=== PATIENT | male | born 1950 | race Caucasian/White ===

== ENCOUNTER 2016-07-29 15:34 | Observation (INO) | payer BLACK LUNG, MEDICARE, OTHER ==
[2016-07-29] MEDS ORDERED: ULTRAM 50 MG PO PRN (16:47)
[2016-07-29] MEDS ORDERED: DUONEB 0.5-3 MG/3 ml Neb IH PRN ×2 (16:48→20:31)
[2016-07-29 18:25] LABS: Collection Type CLEAN CATCH
[2016-07-29 18:26] LABS: Bacteria RARE /HPF (NEGATIVE); COMPLETE URINE MICROSCOPIC? YES
[2016-07-29] MEDS ORDERED: xanAX 0.5 MG PO PRN (18:41)
[2016-07-29 19:03] LABS: BASOPHIL % 0.2 % (0.0-0.4); Eosinophil % 2.7 % (0.00-5.0); Granulocytes % 68.4 % (36.0-66.0); Lymphocytes % 20.3 % (24.0-44.0); Mean Cell Volume 88.7 fl (78-100); Mean Corpuscular Hemoglobin 27.7 pg (26-32); Mean Platelet Volume 7.7 fl (6-9.5); Monocytes % 8.4 % (0.0-12.0); Platelet Count 316 K/mm3 (150-450); Red Blood Count 3.97 M/mm3 (4.1-5.6); Red Cell Distribution Width 15.1 % (11.5-14.0); White Blood Count 9.6 K/mm3 (4.0-10.5)
[2016-07-29] MEDS: ROCEPHIN 1 Gm-D5w 50 ml Bag** 50 ML IV SCH (19:37)
[2016-07-29] MEDS: solu-MEDROL 40 MG IV SCH ×2 (19:37→21:35)
[2016-07-29 19:47] LABS: ALKALINE PHOSPHATASE 68 U/L (46-116); ANION GAP 14.5 MEQ/L (5-15); BILIRUBIN,TOTAL 0.1 mg/dL (0.2-1.0); BLOOD UREA NITROGEN 16 mg/dL (9-20); CHLORIDE 103 mEq/L (98-107); Carbon Dioxide 26.2 mEq/L (21-32); Glucose 68 MG/DL (70-110); Potassium 4.2 mEq/L (3.5-5.1); SGOT/AST 15 U/L (15-37); SGPT/ALT 16 U/L (12-78); SODIUM 140 mEq/L (136-145); Total Protein 7.6 gm/dL (6.4-8.2)
[2016-07-29] MEDS: Zithromax 500 MG/ 250 ML NaCl Premix 250 ML IV SCH (20:13)
[2016-07-29] MEDS: ELIQUIS PO SCH (21:36)
[2016-07-29] MEDS: xanAX 0.5 MG PO SCH (21:36)
[2016-07-29] MEDS: DUONEB 0.5-3 MG/3 ml Neb IH SCH (23:22)
[2016-07-30] MEDS: DUONEB 0.5-3 MG/3 ml Neb IH SCH ×5 (03:35→19:00)
[2016-07-30] MEDS: solu-MEDROL 40 MG IV SCH ×3 (05:18→20:57)
[2016-07-30] MEDS: Spiriva 18 Mcg/Cap Inhaler IH SCH ×2 (07:02→08:25)
[2016-07-30] MEDS: Advair Hfa 230/21 Mcg COMMON CANISTER IH SCH ×2 (07:03→19:02)
[2016-07-30] MEDS: Glucotrol 5 MG PO SCH ×2 (08:26→16:50)
[2016-07-30] MEDS: ELIQUIS PO SCH ×2 (08:26→20:57)
[2016-07-30] MEDS: Protonix 40MG Tablet PO SCH (08:26)
[2016-07-30] MEDS: THERAGRAN MULTIVITAMIN PO SCH (08:26)
--- NOTE | 2016-07-30 08:38 | XRAY ---
Indication: COPD exacerbation. Comparison: July 15, 2016. PA/lateral chest unchanged again hyperinflated with stable right mid to lower lung pleural-parenchymal opacity and left base scarring. Heart is not enlarged. No new cardiopulmonary abnormalities.
--- NOTE | 2016-07-30 08:42 | XRAY ---
Indication: Back pain. Comparison: None 5 views of the lumbar spine demonstrates 5 lumbar vertebral segments with age-related osteopenia, bilateral L5 spondylolysis with minimal 5-6 mm spondylolisthesis, remote L1 compression deformity with approximately 25% height loss, old right 11th/12th rib fractures, bilateral hip degenerative changes, pancreatic calcifications from chronic pancreatitis, left mid abdomen metallic shrapnel, fecal stasis without obstruction, and heavy aortic calcifications. Impression: Nonacute lumbar spine with numerous chronic features.
--- NOTE | 2016-07-30 09:39 | PCM.HP ---
History of Present Illness - Chief Complaint Chief Complaint: Exacerbation of COPD Date: 07/30/16 History of Present Illness: Mr.SMITH CAZARES is a 65 year old male. with severe copd and chronic hypoxemic respiratory failure was having increased sob and weakness and wheezing for the last [address] Meyer's office with this and lumbar back pain after "an aggressive move at the chiropractor". He was sent for observation steroids antibiotics to treat the COPD exacerbation. he is feeling a little better this am. 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 No vomiting he is warm and having some sweating no fevers. he had a PET scan done 5 days ago the results are pending regarding some indeterminate nodules on the CT of the chest. - Review of Systems Constitutional: Chills, Fatigue, Lethargy, Night Sweats, Weakness, No Fever Eyes: No Symptoms Ears, Nose, & Throat: No Symptoms Respiratory: Cough, Short Of Breath, Wheezing Cardiac: No Chest Pain, No Edema, No Syncope Abdominal/Gastrointestinal: No Abdominal Pain, No Nausea, No Vomiting, No Diarrhea Genitourinary Symptoms: No Dysuria Musculoskeletal: Back Pain, No Neck Pain, No Joint Redness, No Joint Swelling Skin: No Rash Neurological: No Dizziness, No Focal Weakness, No Sensory Changes Psychological: No Symptoms Endocrine: No Symptoms Hematologic/Lymphatic: No Symptoms Immunological/Allergic: No Symptoms Medications & Allergies Home Medications: Home Medication List Metformin HCl 500 mg [Glucophage 500 MG] 500 mg PO BID 02/11/16 [History Confirmed 07/29/16] Albuterol/Ipratropium 3ml Neb* [DUONEB 0.5-3 MG/3 ml Neb] 3 ml IH Q4HRT #0 ampul.neb 04/04/16 [Rx Confirmed 07/29/16] Apixaban [Eliquis] 5 mg PO BID #0 tablet 04/04/16 [Rx Confirmed 07/29/16] Glipizide 5 mg [Glucotrol 5 MG] 5 mg PO BIDWM #0 tablet 04/04/16 [Rx Confirmed 07/29/16] Prednisone 20 mg [Deltasone 20 mg] 20 mg PO DAILY #0 tablet 04/04/16 [Rx Confirmed 07/29/16] Alprazolam [Xanax 0.5 mg] 0.5 mg PO Q6H PRN PRN 05/29/16 [History Confirmed ] Fluticasone/Salmeterol 230/21 [Advair Hfa 230/21 Mcg COMMON CANISTER*] 2 puff IH BID 05/29/16 [History Confirmed 07/29/16] Multivitamin W-Minerals/Lutein [Multivit-Mineral Plus 50 Tab] 1 each PO DAILY [History Confirmed 07/29/16] Omeprazole 20 MG [Prilosec 20 mg] 20 mg PO DAILY 05/29/16 [History Confirmed ] Tiotropium [place] Inhaler [Spiriva 18 Mcg/Cap Inhaler] 1 ea IH DAILY [History Confirmed 07/29/16] Allergies/Adverse Reactions: Allergies Allergy/AdvReac Type Severity Reaction Status Date / Time No Known Drug Allergies Allergy Verified 05/29/16 20:30 - Past Medical History Past Medical History: Yes Neurological History: No Pertinent History ENT History: No Pertinent History Cardiac History: No Pertinent History, Deep Vein Thrombosis Respiratory History: COPD, Emphysema, Other Endocrine Medical History: No Pertinent History Musculoskelatal History: No Pertinent History GI Medical History: No Pertinent History History: No Pertinent History Pyscho-Social History: No Pertinent History Male Reproductive Disorders: No Pertinent History Comment: Black Lung Disease, Right Lower and Right Middle Lobectomy - Past Surgical History Past Surgical History: Yes Neuro Surgical History: No Pertinent History Cardiac History: No Pertinent History Respiratory Surgery: Lobectomy GI Surgical History: No Pertinent History Genitourinary Surgical Hx: No Pertinent History Musculskeletal Surgical Hx: No Pertinent History Male Surgical History: No Pertinent History Other Surgical History: R middle on lower LOBECTOMY, bronch - Social History Smoking Status: Former smoker How long have you smoked: 50 years Exposure to second hand smoke: No Alcohol: None Drug Use: none - Physical Exam Vital Signs: Vital Signs - 24 hr Temp Pulse Resp BP Pulse Ox 07/30/16 07:36 98 F 70 20 111/68 96 07/30/16 07:06 75 20 96 07/30/16 06:00 20 07/30/16 04:00 98.6 F 76 20 119/66 94 L 07/30/16 03:00 80 22 94 L 07/30/16 02:00 22 07/30/16 00:00 99.8 F 89 22 104/64 95 07/29/16 23:00 89 22 95 07/29/16 22:14 101 H 20 92 L 07/29/16 22:00 22 07/29/16 19:46 99.9 F 93 H 22 137/80 95 07/29/16 18:27 99.9 F 93 H 22 137/80 95 Oxygen-Last 24 hours O2 Percentage 4 Liters = 36% O2 Percentage 4 Liters = 36% O2 Percentage 4 Liters = 36% O2 Percentage 4 Liters = 36% O2 Percentage 4 Liters = 36% General Appearance: no apparent distress, alert, thin Neurologic Exam: alert, oriented x 3, cooperative, normal mood/affect, nml cerebellar function, nml station & gait, sensation nml, No motor deficits Eye Exam: PERRL/EOMI, eyes nml inspection Ears, Nose, Throat Exam: normal ENT inspection, pharynx normal, moist mucous membranes Neck Exam: normal inspection, non-tender, supple, full range of motion Respiratory Exam: normal breath sounds, wheezing, No respiratory distress Cardiovascular Exam: regular rate/rhythm, normal heart sounds, normal peripheral pulses Gastrointestinal/Abdomen Exam: soft, normal bowel sounds, No tenderness, No mass Back Exam: normal inspection, normal range of motion, other (tenderness with muscle spasm adjacent to L1-L3 bilateral), No CVA tenderness, No vertebral tenderness Extremity Exam: normal inspection, normal range of motion, pelvis stable Skin Exam: normal color, warm, dry, No rash Lymphatic Exam: No adenopathy Results - Labs Lab/Micro Results: Accuchecks Date 07/30/16 Date 07/29/16 Time 07:30 Time 22:00 Accucheck Value: 175 Accucheck Value: 209 Lab Results-Last 24 Hours 07/29/16 07/29/16 07/29/16 Range/Units 18:00 18:59 18:59 WBC 9.6 (4.0-10.5) K/mm3 RBC 3.97 L (4.1-5.6) M/mm3 Hgb 11.0 L (12.5-18.0) gm/dl Hct 35.2 L (42-50) % MCV 88.7 (78-100) fl MCH 27.7 (26-32) pg MCHC 31.3 L (32-36) g/dl RDW 15.1 H (11.5-14.0) % Plt Count 316 (150-450) K/mm3 MPV 7.7 (6-9.5) fl Gran % 68.4 H (36.0-66.0) % Lymphocytes % 20.3 L (24.0-44.0) % Monocytes % 8.4 (0.0-12.0) % Eosinophils % 2.7 (0.00-5.0) % Basophils % 0.2 (0.0-0.4) % Basophils # 0.02 (0-0.4) Sodium 140 (136-145) mEq/L Potassium 4.2 (3.5-5.1) mEq/L Chloride 103 (98-107) mEq/L Carbon Dioxide 26.2 (21-32) mEq/L Anion Gap 14.5 (5-15) MEQ/L BUN 16 (9-20) mg/dL Creatinine 0.92 (0.55-1.30) mg/dl Estimated GFR > 60 ML/MIN Glucose 68 L (70-110) MG/DL Calcium 8.9 (8.5-10.1) mg/dL Total Bilirubin 0.1 L (0.2-1.0) mg/dL AST 15 (15-37) U/L ALT 16 (12-78) U/L Alkaline Phosphatase 68 (46-116) U/L Serum Total Protein 7.6 (6.4-8.2) gm/dL Albumin 3.0 L (3.4-5.0) g/dL Prealbumin (18.0-35.7) mg/dL Ur Collection Type CLEAN CATCH Urine Color YELLOW (YELLOW) Urine Appearance CLEAR (CLEAR) Urine pH 6.0 (5-6) Ur Specific [place] 1.015 (1.005-1.025) Urine Protein NEGATIVE (Negative) Urine Glucose (UA) 100 (NEGATIVE) mg/dL Urine Ketones SMALL (NEGATIVE) Urine Nitrite NEGATIVE (NEGATIVE) Urine Bilirubin SMALL (NEGATIVE) Urine Urobilinogen 0.2 (0-1) mg/dL Urine WBC (Auto) NEGATIVE (NEGATIVE) Urine RBC (Auto) TRACE-INTACT (0-5) Yash/ul Urine Microscopic RBC 0-2 (0-2) /HPF Urine Bacteria RARE (NEGATIVE) /HPF Specimen Received [id number] 07/29/16 Range/Units 18:59 WBC (4.0-10.5) K/mm3 RBC (4.1-5.6) M/mm3 Hgb (12.5-18.0) gm/dl Hct (42-50) % MCV (78-100) fl MCH (26-32) pg MCHC (32-36) g/dl RDW (11.5-14.0) % Plt Count (150-450) K/mm3 MPV (6-9.5) fl Gran % (36.0-66.0) % Lymphocytes % (24.0-44.0) % Monocytes % (0.0-12.0) % Eosinophils % (0.00-5.0) % Basophils % (0.0-0.4) % Basophils # (0-0.4) Sodium (136-145) mEq/L Potassium (3.5-5.1) mEq/L Chloride (98-107) mEq/L Carbon Dioxide (21-32) mEq/L Anion Gap (5-15) MEQ/L BUN (9-20) mg/dL Creatinine (0.55-1.30) mg/dl Estimated GFR ML/MIN Glucose (70-110) MG/DL Calcium (8.5-10.1) mg/dL Total Bilirubin (0.2-1.0) mg/dL AST (15-37) U/L ALT (12-78) U/L Alkaline Phosphatase (46-116) U/L Serum Total Protein (6.4-8.2) gm/dL Albumin (3.4-5.0) g/dL Prealbumin 18.6 (18.0-35.7) mg/dL Ur Collection Type Urine Color (YELLOW) Urine Appearance (CLEAR) Urine pH (5-6) Ur Specific [place] (1.005-1.025) Urine Protein (Negative) Urine Glucose (UA) (NEGATIVE) mg/dL Urine Ketones (NEGATIVE) Urine Nitrite (NEGATIVE) Urine Bilirubin (NEGATIVE) Urine Urobilinogen (0-1) mg/dL Urine WBC (Auto) (NEGATIVE) Urine RBC (Auto) (0-5) Yash/ul Urine Microscopic RBC (0-2) /HPF Urine Bacteria (NEGATIVE) /HPF Specimen Received Accuchecks Date 07/30/16 Date 07/29/16 Time 07:30 Time 22:00 Accucheck Value: 175 Accucheck Value: 209 - Radiology Impressions Radiology Exams & Impressions: Radiology Procedures Category Date Time Status CHEST 2 VIEWS (PA AND LAT) Routine Exams 07/29/16 18:00 Completed LUMBAR COMPLETE (MIN 4 VIEWS) Routine Exams 07/29/16 18:00 Completed - Other Procedures and Tests Respiratory Therapy 07/29/16 18:00 Oxygen NASAL CANNULA 4 lpm 07/29/16 23:00 Respiratory Nebulizer Q4H 07/30/16 07:00 Respiratory MDI BID Respiratory MDI UD Assessment/Plan (1) Acute exacerbation of chronic obstructive airways disease Current Visit: Yes Status: Acute Assessment & Plan: continue nebs, iv steroids, ceftriaxone and azithromycin on eliquis ambulate as much as tolerated wean steroids as tolerated Code(s): J44.1 - CHRONIC OBSTRUCTIVE PULMONARY DISEASE W (ACUTE) EXACERBATION (2) Chronic hypoxemic respiratory failure Current Visit: Yes Status: Acute (3) Spasm of lumbar paraspinous muscle Current Visit: Yes Status: Acute Code(s): M62.830 - MUSCLE SPASM OF BACK (4) Hx pulmonary embolism Current Visit: Yes Status: Chronic Code(s): Z86.711 - PERSONAL HISTORY OF PULMONARY EMBOLISM (5) Protein calorie malnutrition Current Visit: Yes Status: Chronic Code(s): E46 - UNSPECIFIED PROTEIN- CALORIE MALNUTRITION
[2016-07-30] MEDS ORDERED: LUTEIN PO SCH (10:00)
[2016-07-30] MEDS ORDERED: NON-FORMULARY ITEM (Omeprazole 20 Mg [Prilosec 20 Mg] 20 MG) PO SCH (10:00)
[2016-07-30] MEDS ORDERED: MULTIVITAMIN W MINERALS PO SCH (10:00)
[2016-07-30] MEDS ORDERED: [UNRECOGNIZED DRUG - OTHER] PO SCH (10:00)
[2016-07-30] MEDS: ROCEPHIN 1 Gm-D5w 50 ml Bag** 50 ML IV SCH (16:50)
[2016-07-30] MEDS: Zithromax 500 MG/ 250 ML NaCl Premix 250 ML IV SCH (16:50)
[2016-07-30] MEDS: xanAX 0.5 MG PO SCH (20:57)
[2016-07-31] MEDS: DUONEB 0.5-3 MG/3 ml Neb IH SCH ×4 (00:15→10:48)
[2016-07-31] MEDS: solu-MEDROL 40 MG IV SCH (05:46)
[2016-07-31] MEDS: Advair Hfa 230/21 Mcg COMMON CANISTER IH SCH (06:48)
[2016-07-31] MEDS: Spiriva 18 Mcg/Cap Inhaler IH SCH (06:50)
[2016-07-31] MEDS: Glucotrol 5 MG PO SCH (07:14)
[2016-07-31 07:29] VITALS: O2SAT 95
--- NOTE | 2016-07-31 08:55 | PCM.DS ---
Discharge Summary Date of Admission: 07/29/16 17:45 Date of Discharge: 07/31/16 Admitting Physician: KELIN ORTIZ Primary Care Provider: KELIN ORTIZ Allergies Allergies No Known Drug Allergies Allergy (Verified 05/29/16 20:30) Hospital Summary - Hospital Course Hospital Course: Feeling much better now was walking in the halls yesterday breathing is stable. His back pain has improved. No new symptoms. He was treated for an early copd exacerbation and this has improved well on iv steroids and will d/c on po steroids and complete 5 day coarse of azithromycin. His lumbar pains he was having resolved he does have the results of a PET CT chest pending from last week still for some indeterminate pulmonary nodules. - Vitals & Intake/Output Vital Signs: Vital Signs Temperature 98.4 F 07/31/16 07:27 Pulse Rate 74 07/31/16 07:27 Respiratory Rate 20 07/31/16 07:27 Blood Pressure 131/65 07/31/16 07:27 O2 Sat by Pulse Oximetry 95 07/31/16 07:27 Oxygen-Last Documented O2 Percentage 4 Liters = 36% Intake & Output: Intake & Output 07/28/16 07/29/16 07/30/16 07/31/16 11:59 11:59 11:59 11:59 Intake Total 1530 660 Output Total 1000 1750 Balance 530 -1090 Weight 59.506 kg - Lab Result Diagrams: 07/29/16 18:59 07/29/16 18:59 Lab Results-Last 24 Hrs: Accuchecks Date 07/30/16 Date 07/30/16 Date 07/30/16 Time 20:42 Time 16:39 Time 11:30 Accucheck Value: 213 Accucheck Value: 237 Accucheck Value: 283 Accucheck Value: 300 Micro Results-Entire Visit: Accuchecks Date 07/30/16 Date 07/30/16 Date 07/30/16 Time 20:42 Time 16:39 Time 11:30 Accucheck Value: 213 Accucheck Value: 237 Accucheck Value: 283 Accucheck Value: 300 - Radiology Exams Ordered Rad Exams-Entire Visit: Radiology Procedures Category Date Time Status CHEST 2 VIEWS (PA AND LAT) Routine Exams 07/29/16 18:00 Completed LUMBAR COMPLETE (MIN 4 VIEWS) Routine Exams 07/29/16 18:00 Completed - Procedures and Test Procedures and Tests throughout Hospitalization: Therapy Orders & Screens 07/29/16 18:00 Oxygen NASAL CANNULA 4 lpm Comment: Diagnosis: [place] copd,back pain,DMII 07/29/16 22:13 Respiratory Therapy Assessment ONCE Comment: Diagnosis: Exacerbation of COPD 07/29/16 23:00 Respiratory Nebulizer Q4H Comment: Diagnosis: Exacerbation of COPD 07/30/16 07:00 Respiratory MDI BID Comment: Diagnosis: Exacerbation of COPD Respiratory MDI UD Comment: Diagnosis: Exacerbation of COPD Discharge Exam General Appearance: no apparent distress, alert, thin Neurologic Exam: alert, oriented x 3, cooperative, normal mood/affect, nml cerebellar function, sensation nml, No motor deficits Skin Exam: normal color, warm, dry Eye Exam: PERRL, EOMI, eyes nml inspection Ears, Nose, Throat Exam: normal ENT inspection, pharynx normal, moist mucous membranes Neck Exam: normal inspection, non-tender, supple, full range of motion Respiratory Exam: normal breath sounds, lungs clear, prolonged expirations, No respiratory distress Cardiovascular Exam: regular rate/rhythm, normal heart sounds Gastrointestinal/Abdomen Exam: soft, No tenderness, No mass Extremity Exam: normal inspection, normal range of motion Back Exam: normal inspection, normal range of motion, No CVA tenderness, No vertebral tenderness Male Genitalia Exam: deferred Rectal Exam: deferred Final Diagnosis/Problem List - Final Discharge Diagnosis/Problem (1) Acute exacerbation of chronic obstructive airways disease Current Visit: Yes Status: Acute (2) Chronic hypoxemic respiratory failure Current Visit: Yes Status: Acute (3) Spasm of lumbar paraspinous muscle Current Visit: Yes Status: Acute (4) Hx pulmonary embolism Current Visit: Yes Status: Chronic (5) Protein calorie malnutrition Current Visit: Yes Status: Chronic - Discharge Disposition: Home, Self-Care Condition: Stable Prescriptions: New Azithromycin 250 mg [Zithromax 250 MG TABLET] 250 mg PO DAILY #3 tablet Continue Metformin HCl 500 mg [Glucophage 500 MG] 500 mg PO BID Albuterol/Ipratropium 3ml Neb* [DUONEB 0.5-3 MG/3 ml Neb] 3 ml IH Q4HRT #0 ampul.neb Apixaban [Eliquis] 5 mg PO BID #0 tablet Glipizide 5 mg [Glucotrol 5 MG] 5 mg PO BIDWM #0 tablet Alprazolam [Xanax 0.5 mg] 0.5 mg PO Q6H PRN PRN PRN Reason: Anxiety Fluticasone/Salmeterol 230/21 [Advair Hfa 230/21 Mcg COMMON CANISTER*] 2 puff IH BID Omeprazole 20 MG [Prilosec 20 mg] 20 mg PO DAILY Multivitamin W-Minerals/Lutein [Multivit-Mineral Plus 50 Tab] 1 each PO DAILY Tiotropium [place] Inhaler [Spiriva 18 Mcg/Cap Inhaler] 1 ea IH DAILY Prednisone 20 mg [Deltasone 20 mg] 20 mg PO DAILY #11 tablet Follow up with: IBETH JAEGER MD [ACTIVE STAFF] - 1 Week Forms: Patient Portal Information
[2016-07-31] MEDS: ELIQUIS PO SCH (09:10)
[2016-07-31] MEDS: THERAGRAN MULTIVITAMIN PO SCH (09:10)
[2016-07-31] MEDS: Protonix 40MG Tablet PO SCH (09:10)
[2016-07-31 10:50] VITALS: PULSE 76
[2016-07-31 10:59] VITALS: BP 128/69
== END 2016-07-31 11:00 | disposition home or self-care (01) ==
LOC: MED SURG 17:45
PROVIDERS: ADMIT Family Medicine; ATTEND Family Medicine
DX: J44.1 Chronic obstructive pulmonary disease with (acute) exacerbation (principal); J96.11 Chronic respiratory failure with hypoxia; M62.830 Muscle spasm of back; Z86.711 Personal history of pulmonary embolism; E46 Unspecified protein-calorie malnutrition; F41.9 Anxiety disorder, unspecified; E11.9 Type 2 diabetes mellitus without complications; Z79.01 Long term (current) use of anticoagulants; Z79.899 Other long term (current) drug therapy
CPT/HCPCS: 36415; 71020; 72110; 80053; 81000; 82962; 84134; 85025; 94640; 94760; G0378; J0456; J0696; J2920

== ENCOUNTER 2016-08-16 16:54 | Inpatient (IN) | payer BLACK LUNG, MEDICARE, OTHER ==
[2016-08-16] MEDS ORDERED: DUONEB 0.5-3 MG/3 ml Neb IH ONE ×2 (16:58→17:15)
[2016-08-16] MEDS ORDERED: solu-MEDROL 125 MG IV ONE (16:58)
[2016-08-16] MEDS ORDERED: ROCEPHIN 1 Gm-D5w 50 ml Bag** 50 ML IV ONE ×2 (16:58→17:05)
[2016-08-16] MEDS ORDERED: Pepcid 20 MG VIAL IV ONE ×2 (16:58→17:05)
[2016-08-16] MEDS ORDERED: Sodium Chloride 0.9% 1000 ML 1,000 ML ONE (17:05)
[2016-08-16] MEDS ORDERED: solu-MEDROL 125 MG ONE (17:05)
[2016-08-16] MEDS: Sodium Chloride 0.9% 1000 ML 1,000 ML IV SCH ×2 (17:09→23:42)
--- NOTE | 2016-08-16 17:18 | ERPHSYRPT ---
- History of Present Illness Time Seen by Provider: 08/16/16 16:55 Source: patient, EMS, old records Exam Limitations: no limitations Patient Subjective Stated Complaint: INCREASING SOB OVER PAST TWO DAYS. RECENT BRONCH BUT DOESN'T HAVE RESULTS YET. PROD COUGH OF PAIZ/WHITE THICK SPUTUM AT HOME. Triage Nursing Assessment: TO ROOM PER EMS COT. SKIN W/D, COLOR NORMAL FOR PATIENT. RESP SLIGHTLY LABORED. DENIES FEVER AT HOME. BREATH SOUNDS DIMINSHED THROUGHOUT. Physician History: patient with cough and shortness of for 2 days with fever and chills; cough is nonproductive; increased shortness of breath with wheezing; on home O2; no travel; no exposures; no smoking; no chest pain or hemoptysis Timing/Duration: today (worse), yesterday (onset), gradual onset, worse Activities at Onset: rest Severity of Dyspnea-Max: severe Severity of Dyspnea-Current: moderate (after breathing treatment) Possible Cause: occasional episodes Modifying Factors: Improves With: albuterol nebulizer, coughing, exertion Associated Symptoms: intermittent, cough, fever, wheezing, chills, productive cough (minimally) International travel in last 2 weeks: No Allergies/Adverse Reactions: No Known Drug Allergies Allergy (Verified 05/29/16 20:30) Home Medications: Metformin HCl 500 mg [Glucophage 500 MG] 500 mg PO BID 02/11/16 [History] Alprazolam [Xanax 0.5 mg] 0.5 mg PO Q6H PRN PRN 05/29/16 [History] Fluticasone/Salmeterol 230/21 [Advair Hfa 230/21 Mcg COMMON CANISTER*] 2 puff IH BID 05/29/16 [History] Multivitamin W-Minerals/Lutein [Multivit-Mineral Plus 50 Tab] 1 each PO DAILY [History] Omeprazole 20 MG [Prilosec 20 mg] 20 mg PO DAILY 05/29/16 [History] Tiotropium [place] Inhaler [Spiriva 18 Mcg/Cap Inhaler] 1 ea IH DAILY [History] Hx Tetanus, Diphtheria Vaccination/Date Given: Yes Hx Influenza Vaccination/Date Given: Yes Hx Pneumococcal Vaccination/Date Given: Yes - Review of Systems Constitutional: Fever, Chills, Weakness Eyes: No Symptoms Ears, Nose, & Throat: No Symptoms Respiratory: Cough, Cyanosis, Dyspnea, Wheezing Cardiac: No Chest Pain, No Palpitations, No Syncope Abdominal/Gastrointestinal: No Abdominal Pain, No Nausea, No Vomiting, No Diarrhea, No Constipation Genitourinary Symptoms: No Symptoms Musculoskeletal: No Symptoms Skin: No Symptoms Neurological: No Symptoms Psychological: No Symptoms Endocrine: No Symptoms Hematologic/Lymphatic: No Symptoms Immunological/Allergic: No Symptoms - Past Medical History Pertinent Past Medical History: Yes Neurological History: No Pertinent History ENT History: No Pertinent History Cardiac History: No Pertinent History, Deep Vein Thrombosis Respiratory History: COPD, Emphysema, Other Endocrine Medical History: No Pertinent History Musculoskeletal History: No Pertinent History GI Medical History: No Pertinent History History: No Pertinent History Psycho-Social History: No Pertinent History Male Reproductive Disorders: No Pertinent History Other Medical History: Black Lung Disease, Right Lower and Right Middle Lobectomy - Past Surgical History Past Surgical History: Yes Neuro Surgical History: No Pertinent History Cardiac: No Pertinent History Respiratory: Lobectomy Gastrointestinal: No Pertinent History Genitourinary: No Pertinent History Musculoskeletal: No Pertinent History Male Surgical History: No Pertinent History Other Surgical History: R middle on lower LOBECTOMY, bronch - Social History Smoking Status: Former smoker How long have you smoked: 50 years Exposure to second hand smoke: No Alcohol Use: None Drug Use: none Patient Lives Alone: No Significant Family History: no pertinent family hx - Nursing Vital Signs Nursing Vital Signs: Initial Vital Signs Temperature 102.2 F Temperature Source Rectal Pulse Rate 106 Respiratory Rate 28 Blood Pressure [] 119/58 Pain Intensity 0 - Physical Exam General Appearance: severe distress (respiratory), alert, thin Eye Exam: PERRL/EOMI, eyes nml inspection, No photophobia Ears, Nose, Throat Exam: hearing grossly normal, normal ENT inspection, normal pharynx Neck Exam: normal inspection, non-tender, supple, full range of motion, No meningismus, No JVD Respiratory Exam: respiratory distress, airway intact, diminished breath sounds , accessory muscle use, rhonchi, wheezing, No normal breath sounds, No chest tenderness, No lungs clear, No pleural rub Cardiovascular/Chest Exam: normal heart sounds, regular rate/rhythm, normal peripheral pulses, tachycardia (106), No murmur, No JVD Abdominal/Gastrointestinal Exam: soft, normal bowel sounds, No tenderness, No guarding, No rebound, No organomegaly Rectal Exam: deferred Extremity Exam: non-tender, normal range of motion, normal inspection, No no calf tenderness, No no pedal edema, No marion's sign Peripheral Pulses Exam: carotid (R): 4+, carotid (L): 4+, femoral (R): 4+, femoral (L): 4+ Neurologic Exam: alert, oriented x 3, cooperative, 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, normal mood/affect Skin Exam: normal color, warm, dry, cyanosis (when off oxygen), No rash SpO2 Interpretation: hypoxic, O2 applied SpO2: 80 Oxygen Delivery: Nasal Cannula - Course Nursing assessment & vital signs reviewed: Yes EKG Interpreted by Me: RATE (106), Sinus Rhythm, Left [place] Deviation, NORMAL INTERVALS, NORMAL QRS, Non-specific ST Changes Rhythm Strip: Rate (108), Normal Sinus Rhythm - Radiology Exams Chest X-ray Interpretation: Interpreted by me, No Pneumothorax, Nml Heart Size, Infiltrates (RLL), Pneumonia (RLL), Other (mass lateral right lung field) Ordered Tests: Active Orders 24 hr Category Date Time Status Bedrest with BRP/BSC ROUTINE Activity 08/16/16 18:29 Active Admission/Status Order ROUTINE Care 08/16/16 18:29 Active Laborer Landscape STAT Care 08/16/16 16:58 Active Code Status Order ROUTINE Care 08/16/16 18:29 Active EKG-ER Only STAT Care 08/16/16 17:01 Active Fall Protocol ROUTINE Care 08/16/16 18:31 Active IV Care Q6H Care 08/16/16 18:29 Active IV Insertion STAT Care 08/16/16 16:58 Active Oxygen-ED Only NASAL CANNULA 4 lpm Care 08/16/16 16:58 Active Pulse Oximetry (ED) STAT Care 08/16/16 16:58 Active Rectal Temperature STAT Care 08/16/16 16:58 Active Balbir Jett, Apply ROUTINE Care 08/16/16 18:29 Active Weight,Daily 0600 Care 08/16/16 18:29 Active Regular Diet Diet 08/16/16 Dinner Active CHEST 1 VIEW (PORTABLE) Stat Exams 08/16/16 16:59 Taken BLOOD CULTURE Stat Lab 08/16/16 17:24 Received CBC W DIFF Stat Lab 08/16/16 17:20 Completed CMP Stat Lab 08/16/16 17:20 Completed Lactic Acid Urgent Lab 08/16/16 17:25 Completed Manual Differential NC Stat Lab 08/16/16 17:20 Completed NT PRO BNP Stat Lab 08/16/16 17:20 Completed PROTIME WITH INR Stat Lab 08/16/16 17:20 Completed TROPONIN Q3H Lab 08/16/16 17:45 Completed TROPONIN Q3H Lab 08/16/16 20:15 Ordered TROPONIN Q3H Lab 08/16/16 23:15 Ordered TROPONIN Q3H Lab 08/17/16 02:15 Ordered TROPONIN Q3H Lab 08/17/16 05:15 Ordered Peak Expiratory Flow Rate BEFORE&AFTER NEB TX RT 08/16/16 18:31 Active Peak Expiratory Flow Rate ONCE RT 08/16/16 16:58 Completed Pulse Oximetry CONTINUOUS RT 08/16/16 18:31 Active Respiratory Nebulizer STAT RT 08/16/16 17:00 Completed Respiratory Therapy Consult ROUTINE RT 08/16/16 18:29 Active Transfer Order Routine Transfer 08/16/16 18:28 Ordered Medication Summary Generic Name Dose Route Start Last Admin Trade Name Freq PRN Reason Stop Dose Admin Albuterol/Ipratropium 3 ml 08/16/16 19:00 Duoneb 0.5-3 Mg/3 Ml Neb IH 09/15/16 18:59 Q4HRT MELYSSA Famotidine 20 mg 08/16/16 22:00 Pepcid 20 Mg PO 09/15/16 21:59 Q12HT MELYSSA Sodium Chloride 1,000 mls @ 100 mls/hr 08/16/16 17:00 08/16/16 17:09 Sodium Chloride 0.9% 1000 Ml IV 09/15/16 16:59 100 mls/hr .Q10H MELYSSA Administration Sodium Chloride 500 mls @ 500 mls/hr 08/16/16 18:05 08/16/16 18:16 Sodium Chloride 0.9% 500 Ml IV 08/16/16 19:04 500 mls/hr .Q1H ONE Administration Methylprednisolone Sodium Succinate 80 mg 08/17/16 00:00 Solu-Medrol 125 Mg IV 09/16/16 00:00 Q6HT MELYSSA Discontinued Medications Generic Name Dose Route Start Last Admin Trade Name Freq PRN Reason Stop Dose Admin Acetaminophen 325 mg 08/16/16 18:44 08/16/16 18:48 [place] 325 Mg CO 08/16/16 18:45 325 mg STAT STA Administration Acetaminophen 650 mg 08/16/16 18:44 08/16/16 18:49 [place] 650 Mg CO 08/16/16 18:45 650 mg STAT ONE Administration Acetaminophen Confirm 08/16/16 18:45 [place] 650 Mg Administered 08/16/16 18:46 Dose 650 mg .ROUTE .STK-MED ONE Acetaminophen Confirm 08/16/16 18:45 [place] 325 Mg Administered 08/16/16 18:46 Dose 325 mg .ROUTE .STK-MED ONE Albuterol/Ipratropium 3 ml 08/16/16 16:58 08/16/16 17:23 Duoneb 0.5-3 Mg/3 Ml Neb IH 08/16/16 16:59 3 ml STAT ONE Administration Albuterol/Ipratropium Confirm 08/16/16 17:15 Duoneb 0.5-3 Mg/3 Ml Neb Administered 08/16/16 17:16 Dose 3 ml IH .STK-MED ONE Famotidine 20 mg 08/16/16 16:58 08/16/16 17:26 Pepcid 20 Mg Vial IV 08/16/16 16:59 20 mg STAT ONE Administration Famotidine Confirm 08/16/16 17:05 Pepcid 20 Mg Vial Administered 08/16/16 17:06 Dose 20 mg IV .STK-MED ONE Ceftriaxone Sodium/Dextrose 50 mls @ 100 mls/hr 08/16/16 16:58 08/16/16 17:30 Rocephin 1 Gm-D5w 50 Ml Bag IV 08/16/16 17:27 100 mls/hr STAT ONE Administration Sodium Chloride Confirm 08/16/16 17:05 Sodium Chloride 0.9% 1000 Ml Administered 08/16/16 17:06 Dose 1,000 mls @ ud .ROUTE .STK-MED ONE Ceftriaxone Sodium/Dextrose Confirm 08/16/16 17:05 Rocephin 1 Gm-D5w 50 Ml Bag Administered 08/16/16 17:06 Dose 50 mls @ ud IV .STK-MED ONE Methylprednisolone Sodium Succinate 125 mg 08/16/16 16:58 08/16/16 17:10 Solu-Medrol 125 Mg IV 08/16/16 16:59 125 mg STAT ONE Administration Methylprednisolone Sodium Succinate Confirm 08/16/16 17:05 Solu-Medrol 125 Mg Administered 08/16/16 17:06 Dose 125 mg .ROUTE .STK-MED ONE Lab/Rad Data: Laboratory Result Diagrams 08/16/16 17:20 08/16/16 17:20 Laboratory Results 08/16/16 08/16/16 08/16/16 Range/Units 17:45 17:25 17:20 WBC (4.0-10.5) K/mm3 RBC (4.1-5.6) M/mm3 Hgb (12.5-18.0) gm/dl Hct (42-50) % MCV (78-100) fl MCH (26-32) pg MCHC (32-36) g/dl RDW (11.5-14.0) % Plt Count (150-450) K/mm3 MPV (6-9.5) fl Segmented Neutrophils (36.-66.) % Lymphocytes (Manual) (24-44) % Monocytes (Manual) (0.0-12.0) % Differential Comment Platelet Estimate (NORMAL) INR 1.31 (0.8-3.0) Sodium (136-145) mEq/L Potassium (3.5-5.1) mEq/L Chloride (98-107) mEq/L Carbon Dioxide (21-32) mEq/L Anion Gap (5-15) MEQ/L BUN (9-20) mg/dL Creatinine (0.55-1.30) mg/dl Estimated GFR ML/MIN Glucose (70-110) MG/DL Lactic Acid 2.1 H (0.4-2.0) Calcium (8.5-10.1) mg/dL Total Bilirubin (0.2-1.0) mg/dL AST (15-37) U/L ALT (12-78) U/L Alkaline Phosphatase (46-116) U/L Troponin I < 0.017 (0.000-0.056) ng/ml NT-Pro-B Natriuret Pep (0-125) pg/ml Serum Total Protein (6.4-8.2) gm/dL Albumin (3.4-5.0) g/dL 08/16/16 08/16/16 Range/Units 17:20 17:20 WBC 13.4 H (4.0-10.5) K/mm3 RBC 4.13 (4.1-5.6) M/mm3 Hgb 11.2 L (12.5-18.0) gm/dl Hct 37.0 L (42-50) % MCV 89.6 (78-100) fl MCH 27.1 (26-32) pg MCHC 30.3 L (32-36) g/dl RDW 15.5 H (11.5-14.0) % Plt Count 447 (150-450) K/mm3 MPV 8.0 (6-9.5) fl Segmented Neutrophils 69 H (36.-66.) % Lymphocytes (Manual) 27 (24-44) % Monocytes (Manual) 4 (0.0-12.0) % Differential Comment NORMAL Platelet Estimate NORMAL (NORMAL) INR (0.8-3.0) Sodium 138 (136-145) mEq/L Potassium 4.1 (3.5-5.1) mEq/L Chloride 102 (98-107) mEq/L Carbon Dioxide 24.8 (21-32) mEq/L Anion Gap 15.3 H (5-15) MEQ/L BUN 17 (9-20) mg/dL Creatinine 1.10 (0.55-1.30) mg/dl Estimated GFR > 60 ML/MIN Glucose 102 (70-110) MG/DL Lactic Acid (0.4-2.0) Calcium 9.4 (8.5-10.1) mg/dL Total Bilirubin 0.4 (0.2-1.0) mg/dL AST 10 L (15-37) U/L ALT 8 L (12-78) U/L Alkaline Phosphatase 79 (46-116) U/L Troponin I (0.000-0.056) ng/ml NT-Pro-B Natriuret Pep 1021 H (0-125) pg/ml Serum Total Protein 7.8 (6.4-8.2) gm/dL Albumin 2.3 L (3.4-5.0) g/dL reviewed - Progress Progress: improved (slight), re-examined (after respiratory treatment and med) Air Movement: fair Progress Note: 08/16/16 17:18 IV started - resp treatment done; labs and xr pending; meds givnen; tylenol forfever; ekg ok; will monitor and recheck 08/16/16 18:03 some improvement with O2 and resp treatments; CXR shows mass and infiltrate R lung field; elevated wBC; ATBS given Lactate 2.1; will push fluids and recheck; EKG ok; Peak flow no improvement with meds 200 pre; 08/16/16 18:19 rechecked and clinically improved; moving air better; color better; Sats improved 08/16/16 18:24 Dr Vanegas consulted for admission for Dr Vaughan; Lactate 2.1; pBNP elevated at 1021 08/16/16 18:54 Dr Vanegas consulted and accepted the patient for admission. Patient notified and orders written Blood Culture(s) Obtained: Yes Antibiotics given: Yes Discussed with : Giles (consulted for admission and accepted) Will see patient in: hospital (full admit) Counseled pt/family regarding: lab results, diagnosis, need for follow-up, rad results - Departure Time of Disposition: 18:54 Departure Disposition: In-patient Admission Clinical Impression: Pneumonia due to infectious organism, COPD (chronic obstructive pulmonary disease), FUO (fever of unknown origin), Sepsis, CHF (congestive heart failure) Condition: Critical Critical Care Time: Yes Critical Care Time(excluding separately billable procedures): 30-74 minutes Referrals: IBETH VAUGHAN MD [Primary Care Provider] - DWAYNE VANEGAS [ACTIVE STAFF] - Instructions: Chronic Obstructive Pulmonary Disease, Heart Failure
[2016-08-16 17:46] LABS: Mean Cell Volume 89.6 fl (78-100); Mean Corpuscular Hemoglobin 27.1 pg (26-32); Platelet Count 447 K/mm3 (150-450); Red Blood Count 4.13 M/mm3 (4.1-5.6); Red Cell Distribution Width 15.5 % (11.5-14.0); White Blood Count 13.4 K/mm3 (4.0-10.5)
[2016-08-16 17:54] LABS: INR 1.31 (0.8-3.0); PROTIME 14.6 SECONDS (8.83-12.87)
[2016-08-16] MEDS ORDERED: Sodium Chloride 0.9% 500 ML 500 ML IV ONE (18:05)
[2016-08-16 18:12] LABS: ALBUMIN 2.3 g/dL (3.4-5.0); ALKALINE PHOSPHATASE 79 U/L (46-116); ANION GAP 15.3 MEQ/L (5-15); BILIRUBIN,TOTAL 0.4 mg/dL (0.2-1.0); BLOOD UREA NITROGEN 17 mg/dL (9-20); CHLORIDE 102 mEq/L (98-107); Carbon Dioxide 24.8 mEq/L (21-32); Glucose 102 MG/DL (70-110); Potassium 4.1 mEq/L (3.5-5.1); SGOT/AST 10 U/L (15-37); SGPT/ALT 8 U/L (12-78); SODIUM 138 mEq/L (136-145); Total Protein 7.8 gm/dL (6.4-8.2)
[2016-08-16 18:15] LABS: Total Cells Counted 100
[2016-08-16 18:16] LABS: Platelet Estimate NORMAL (NORMAL)
[2016-08-16] MEDS ORDERED: FEVERALL 650 MG PR ONE (18:44)
[2016-08-16] MEDS ORDERED: FEVERALL 325 MG PR STA (18:44)
[2016-08-16] MEDS ORDERED: FEVERALL 650 MG ONE (18:45)
[2016-08-16] MEDS ORDERED: FEVERALL 325 MG ONE (18:45)
[2016-08-16] MEDS ORDERED: DUONEB 0.5-3 MG/3 ml Neb IH SCH (19:00)
[2016-08-16] MEDS ORDERED: TYLENOL EXTRA STRENGTH 500 MG PO PRN (20:14)
[2016-08-16] MEDS ORDERED: Pepcid 20 MG PO SCH (22:00)
[2016-08-16] MEDS: solu-MEDROL 125 MG IV SCH (23:45)
[2016-08-16] MEDS: DUONEB 0.5-3 MG/3 ml Neb IH SCH (23:50)
[2016-08-17] MEDS ORDERED: solu-MEDROL 125 MG IV SCH
[2016-08-17] MEDS: DUONEB 0.5-3 MG/3 ml Neb IH SCH ×6 (03:26→23:05)
[2016-08-17] MEDS ORDERED: PROVENTIL 2.5 MG/3 ML NEB IH ONE (05:21)
[2016-08-17] MEDS ORDERED: PROVENTIL 2.5 MG/3 ML NEB IH PRN (05:22)
[2016-08-17 06:04] LABS: Mean Cell Volume 90.3 fl (78-100); Mean Corpuscular Hemoglobin 27.6 pg (26-32); Mean Platelet Volume 8.2 fl (6-9.5); Platelet Count 449 K/mm3 (150-450); Red Blood Count 3.73 M/mm3 (4.1-5.6); Red Cell Distribution Width 15.4 % (11.5-14.0); White Blood Count 9.8 K/mm3 (4.0-10.5)
[2016-08-17 06:27] LABS: ANION GAP 17.3 MEQ/L (5-15); BLOOD UREA NITROGEN 20 mg/dL (9-20); CHLORIDE 106 mEq/L (98-107); Carbon Dioxide 22.9 mEq/L (21-32); Glucose 167 MG/DL (70-110); Potassium 4.3 mEq/L (3.5-5.1); SODIUM 142 mEq/L (136-145)
[2016-08-17] MEDS: solu-MEDROL 125 MG IV SCH ×3 (06:32→17:18)
[2016-08-17 06:48] LABS: TROPONIN < 0.017 ng/ml (0.000-0.056)
[2016-08-17] MEDS: Advair Hfa 230/21 Mcg COMMON CANISTER IH SCH ×2 (07:15→18:40)
[2016-08-17] MEDS: Spiriva 18 Mcg/Cap Inhaler IH SCH (07:20)
--- NOTE | 2016-08-17 08:45 | XRAY ---
Indication: Cough and short of breath. Comparison: July 29, 2016. Portable chest again hyperinflated with again right mid to lower lung pleural-parenchymal opacity and left base fibrosis/scarring. New focal right mid peripheral consolidating/masslike opacity better evaluated with CT if clinically warranted. Heart is not enlarged.
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
[2016-08-17] MEDS ORDERED: CAMPHOR TP PRN (09:57)
[2016-08-17] MEDS ORDERED: MENTHOL TP PRN (09:57)
[2016-08-17] MEDS ORDERED: LUTEIN PO SCH (10:00)
[2016-08-17] MEDS ORDERED: [UNRECOGNIZED DRUG - OTHER] PO SCH (10:00)
[2016-08-17] MEDS ORDERED: ROCEPHIN 1 Gm-D5w 50 ml Bag** 50 ML IV SCH (10:00)
[2016-08-17] MEDS ORDERED: MULTIVITAMIN W MINERALS PO SCH (10:00)
[2016-08-17] MEDS: Pain Relieving Rub TOP PRN ×2 (11:37→15:30)
[2016-08-17] MEDS: Pepcid 20 MG PO SCH ×2 (11:39→21:23)
[2016-08-17] MEDS: THERAGRAN MULTIVITAMIN PO SCH (11:39)
[2016-08-17] MEDS: ELIQUIS PO SCH ×2 (11:42→21:23)
--- NOTE | 2016-08-17 11:47 | XRAY ---
Indication: Cough and short of breath. Pneumonia. Possible mass on recent chest radiograph. Multiple contiguous axial images obtained through the chest without contrast as ordered. Comparison: July 22, 2013. There remains extensive centrilobular pulmonary emphysema bilaterally, scattered fibrosis/scarring, and right midlung postsurgical changes. New right lung posterior consolidating airspace opacities greatest in the lung base with a few pockets of fluid leveling and small effusion. Also new lesser degree of patchy consolidating airspace disease in the left lower lobe without effusion. Also new lingular hazy airspace opacities. Heart is not enlarged. Aorta remains mildly calcified without aneurysmal dilatation. Stable mediastinal calcified/noncalcified and left hilar calcified nodes. No pathologic mediastinal lymphadenopathy. Mid esophagus is mildly fluid filled suggestive of gastroesophageal reflux. Bony thorax intact again with mild osteopenia, old left 5th-8th rib fractures, old right 9-11th rib fractures, and multilevel tiny thoracic Schmorl nodes. New L1 superior endplate sclerotic concave deformity with less than 25% height loss. Limited upper abdomen again demonstrates pancreatic calcifications suggestive of chronic pancreatitis. Also a few calcified splenic granulomas. Impression: 1. New right lung consolidating airspace opacities with pockets of fluid leveling and small effusion corresponding to the chest radiograph findings. Underlying mass not completely excluded. Lesser degree of new left lower lobe and lingular airspace disease. Rule out aspiration. 2. Midesophagus fluid filled suggestive of gastroesophageal reflux. 3. Stable pulmonary emphysema with scattered fibrosis/scarring and right lung postsurgical changes. 4. Again incidental chronic pancreatitis and evidence for old granulomatous disease. 5. New finding for remote appearing L1 superior endplate fracture. CT DI 10.75
[2016-08-17] MEDS: Zosyn 2.25 GM 2.25 GM in D5w 100ML Mini Bag 100 ML 100 ML IV SCH ×2 (12:40→17:18)
[2016-08-17] MEDS: Sodium Chloride 0.9% 1000 ML 1,000 ML IV SCH (15:21)
[2016-08-17] MEDS: NovoLOG Insulin SQ PRN ×3 (16:23→21:41)
[2016-08-17] MEDS ORDERED: Zithromax 500 MG/ 250 ML NaCl Premix 250 ML IV SCH ×2 (22:00)
[2016-08-18] MEDS: Zosyn 2.25 GM 2.25 GM in D5w 100ML Mini Bag 100 ML 100 ML IV SCH ×5 (00:05→23:49)
[2016-08-18] MEDS: solu-MEDROL 125 MG IV SCH ×5 (00:05→23:49)
[2016-08-18] MEDS: DUONEB 0.5-3 MG/3 ml Neb IH SCH ×5 (03:09→19:13)
[2016-08-18] MEDS: Sodium Chloride 0.9% 1000 ML 1,000 ML IV SCH ×2 (05:33→17:31)
[2016-08-18 05:45] LABS: Mean Cell Volume 88.6 fl (78-100); Mean Corpuscular Hemoglobin 27.4 pg (26-32); Mean Platelet Volume 8.2 fl (6-9.5); Platelet Count 430 K/mm3 (150-450); Red Blood Count 2.99 M/mm3 (4.1-5.6); Red Cell Distribution Width 14.9 % (11.5-14.0); White Blood Count 8.9 K/mm3 (4.0-10.5)
[2016-08-18 06:05] LABS: ALBUMIN 1.8 g/dL (3.4-5.0); ALKALINE PHOSPHATASE 64 U/L (46-116); ANION GAP 14.6 MEQ/L (5-15); BLOOD UREA NITROGEN 21 mg/dL (9-20); CHLORIDE 107 mEq/L (98-107); Carbon Dioxide 21.7 mEq/L (21-32); Glucose 279 MG/DL (70-110); Potassium 4.1 mEq/L (3.5-5.1); SGOT/AST 6 U/L (15-37); SGPT/ALT 6 U/L (12-78); SODIUM 139 mEq/L (136-145); Total Protein 6.4 gm/dL (6.4-8.2)
[2016-08-18 06:18] LABS: BILIRUBIN,TOTAL < 0.1 mg/dL (0.2-1.0)
[2016-08-18] MEDS: Advair Hfa 230/21 Mcg COMMON CANISTER IH SCH ×2 (06:25→19:13)
[2016-08-18] MEDS: Spiriva 18 Mcg/Cap Inhaler IH SCH (06:26)
[2016-08-18 06:35] LABS: BAND 4 % (0.0-2.0); Total Cells Counted 100
[2016-08-18 06:39] LABS: Platelet Estimate NORMAL (NORMAL)
[2016-08-18] MEDS: NovoLOG Insulin SQ PRN ×4 (07:50→21:48)
--- NOTE | 2016-08-18 08:18 | PCM.NOTE ---
Date and Time: 08/18/16816 Subjective Assessment: patient had a severe coughing episode this am, hard to breath. no fever overnight, otherwise stable Objective Exam General Appearance: no apparent distress, alert, cachetic Respiratory Exam: diminished breath sounds, prolonged expirations Cardiovascular Exam: regular rate/rhythm, normal heart sounds Gastrointestinal/Abdomen Exam: soft, No tenderness, No mass Extremity Exam: normal inspection, normal range of motion OBJECTIVE DATA Vital Signs: Vital Signs - 24 hr Temp Pulse Resp BP Pulse Ox 08/18/16 07:28 97.8 F 76 20 110/62 95 08/18/16 06:29 72 22 94 L 08/18/16 04:00 97.8 F 68 20 118/61 94 L 08/18/16 03:09 70 20 94 L 08/18/16 00:00 97.8 F 73 20 114/63 96 08/17/16 23:05 73 20 96 08/17/16 20:00 98.1 F 91 H 18 116/57 94 L 08/17/16 18:39 83 22 96 08/17/16 17:00 20 08/17/16 16:00 97.9 F 87 20 114/56 94 L 08/17/16 15:00 71 16 92 L 08/17/16 12:47 22 08/17/16 12:00 98.1 F 85 19 93/58 88 L 08/17/16 11:26 82 22 92 L 08/17/16 09:00 18 Oxygen-Last 24 hours O2 Percentage 4 Liters = 36% O2 Percentage 4 Liters = 36% O2 Percentage 4 Liters = 36% O2 Percentage 4 Liters = 36% O2 Percentage 4 Liters = 36% O2 Percentage 5 Liters = 40% Pain Assessment - Last Documented Pain Scale Used 0-10 Pain Scale Intake and Output: Intake & Output 08/15/16 08/16/16 08/17/16 08/18/16 11:59 11:59 11:59 11:59 Intake Total 1515 1503 Output Total 650 1200 Balance 865 303 Weight 55.338 kg 56.79 kg Lab Results: Accuchecks Date 08/17/16 Date 08/17/16 Date 08/17/16 Time 11:30 Accucheck Value: 472 Accucheck Value: 594 Accucheck Value: 589 Accucheck Value: 270 Lab Results-Last 24 Hours 08/17/16 08/18/16 08/18/16 Range/Units 16:23 04:50 04:50 WBC 8.9 (4.0-10.5) K/mm3 RBC 2.99 L (4.1-5.6) M/mm3 Hgb 8.2 L (12.5-18.0) gm/dl Hct 26.5 L (42-50) % MCV 88.6 (78-100) fl MCH 27.4 (26-32) pg MCHC 30.9 L (32-36) g/dl RDW 14.9 H (11.5-14.0) % Plt Count 430 (150-450) K/mm3 MPV 8.2 (6-9.5) fl Segmented Neutrophils 90 H (36.-66.) % Band Neutrophils 4 H (0.0-2.0) % Lymphocytes (Manual) 4 L (24-44) % Monocytes (Manual) 2 (0.0-12.0) % Differential Comment NORMAL Platelet Estimate NORMAL (NORMAL) Sodium 139 (136-145) mEq/L Potassium 4.1 (3.5-5.1) mEq/L Chloride 107 (98-107) mEq/L Carbon Dioxide 21.7 (21-32) mEq/L Anion Gap 14.6 (5-15) MEQ/L BUN 21 H (9-20) mg/dL Creatinine 0.92 (0.55-1.30) mg/dl Estimated GFR > 60 ML/MIN Glucose 629 H* 279 H (70-110) MG/DL Calcium 8.4 L (8.5-10.1) mg/dL Total Bilirubin < 0.1 L (0.2-1.0) mg/dL AST 6 L (15-37) U/L ALT 6 L (12-78) U/L Alkaline Phosphatase 64 (46-116) U/L Serum Total Protein 6.4 (6.4-8.2) gm/dL Albumin 1.8 L (3.4-5.0) g/dL Radiology Exams: Radiology Procedures Category Date Time Status CHEST WITHOUT CONTRAST [CT] Urgent Exams 08/17/16 09:05 Completed Assessment/Plan (1) Pneumonia due to infectious organism Current Visit: Yes Status: Acute Assessment & Plan: continue zosyn, nebs Code(s): J18.9 - PNEUMONIA, UNSPECIFIED ORGANISM (2) Acute exacerbation of chronic obstructive airways disease Current Visit: No Status: Acute Assessment & Plan: IV solu medrol Code(s): J44.1 - CHRONIC OBSTRUCTIVE PULMONARY DISEASE W (ACUTE) EXACERBATION (3) Chronic hypoxemic respiratory failure Current Visit: No Status: Acute (4) Hx pulmonary embolism Current Visit: No Status: Chronic Code(s): Z86.711 - PERSONAL HISTORY OF PULMONARY EMBOLISM
[2016-08-18] MEDS: Pain Relieving Rub TOP PRN (10:30)
[2016-08-18] MEDS: Pepcid 20 MG PO SCH ×2 (10:30→21:48)
[2016-08-18] MEDS: THERAGRAN MULTIVITAMIN PO SCH (10:30)
[2016-08-18] MEDS: ELIQUIS PO SCH ×2 (10:30→21:48)
[2016-08-18] MEDS: Robitussin AC Syrup Unit Dose Cup PO PRN (11:03)
[2016-08-19] MEDS: xanAX 0.5 MG PO PRN ×2 (00:18→20:22)
[2016-08-19] MEDS: Robitussin AC Syrup Unit Dose Cup PO PRN (00:30)
[2016-08-19] MEDS: DUONEB 0.5-3 MG/3 ml Neb IH SCH ×6 (03:45→20:08)
[2016-08-19 05:14] LABS: Mean Corpuscular Hemoglobin 27.3 pg (26-32); Mean Platelet Volume 7.9 fl (6-9.5); Platelet Count 472 K/mm3 (150-450); Red Cell Distribution Width 14.9 % (11.5-14.0); White Blood Count 10.9 K/mm3 (4.0-10.5)
[2016-08-19 05:37] LABS: ALBUMIN 1.7 g/dL (3.4-5.0); ALKALINE PHOSPHATASE 58 U/L (46-116); ANION GAP 12.3 MEQ/L (5-15); BLOOD UREA NITROGEN 17 mg/dL (9-20); CHLORIDE 108 mEq/L (98-107); Carbon Dioxide 24.4 mEq/L (21-32); Glucose 253 MG/DL (70-110); SGOT/AST 6 U/L (15-37); SODIUM 141 mEq/L (136-145); Total Protein 6.1 gm/dL (6.4-8.2)
[2016-08-19] MEDS: solu-MEDROL 125 MG IV SCH ×3 (05:49→18:31)
[2016-08-19] MEDS: Zosyn 2.25 GM 2.25 GM in D5w 100ML Mini Bag 100 ML 100 ML IV SCH ×3 (05:49→18:31)
[2016-08-19 05:54] LABS: BILIRUBIN,TOTAL 0.1 mg/dL (0.2-1.0); SGPT/ALT 6 U/L (12-78)
[2016-08-19] MEDS: Sodium Chloride 0.9% 1000 ML 1,000 ML IV SCH ×3 (06:29→20:15)
[2016-08-19] MEDS: Spiriva 18 Mcg/Cap Inhaler IH SCH (07:12)
[2016-08-19] MEDS: Advair Hfa 230/21 Mcg COMMON CANISTER IH SCH ×2 (07:13→20:08)
[2016-08-19 08:20] LABS: ATYPICAL LYMPHS 1 %; BAND 14 % (0.0-2.0); Metamyelocyte 1 %; Total Cells Counted 100
[2016-08-19 08:22] LABS: Hypochromia 1+; Platelet Estimate INCREASED (NORMAL)
[2016-08-19 08:23] LABS: Tear Drop Cells 1+; Toxic Granulation 1+
--- NOTE | 2016-08-19 08:40 | PCM.NOTE ---
Date and Time: 08/19/16 0837 Subjective Assessment: patient had a better night last night, seems to be improving clinically. his po intake is good, he slept better with cough med and xanax for anxiety. Objective Exam General Appearance: cachetic Neurologic Exam: alert Skin Exam: normal color, warm, dry Respiratory Exam: prolonged expirations, crackles/rales (right lower lung saravia ) Cardiovascular Exam: regular rate/rhythm, normal heart sounds Gastrointestinal/Abdomen Exam: soft, No tenderness, No mass Extremity Exam: normal inspection, normal range of motion OBJECTIVE DATA Vital Signs: Vital Signs - 24 hr Temp Pulse Resp BP Pulse Ox 08/19/16 07:33 97.6 F 86 20 160/78 95 08/19/16 04:00 97.7 F 67 20 139/71 96 08/19/16 03:49 67 20 96 08/19/16 00:00 97.7 F 71 22 161/68 95 08/18/16 20:00 97.7 F 87 20 118/68 96 08/18/16 19:14 64 20 96 08/18/16 16:10 97.9 F 70 20 128/66 95 08/18/16 14:21 72 20 96 08/18/16 11:05 97.9 F 75 22 125/63 93 L 08/18/16 10:38 68 16 95 08/18/16 09:00 22 Oxygen-Last 24 hours O2 Percentage 4 Liters = 36% O2 Percentage 4 Liters = 36% O2 Percentage 4 Liters = 36% O2 Percentage 4 Liters = 36% O2 Percentage 3 Liters = 32% O2 Percentage 4 Liters = 36% Pain Assessment - Last Documented Pain Scale Used 0-10 Pain Scale Intake and Output: Intake & Output 08/16/16 08/17/16 08/18/16 08/19/16 11:59 11:59 11:59 11:59 Intake Total 1515 1503 3208 Output Total 650 1200 1750 Balance 652 701 0465 Weight 55.338 kg 56.79 kg 57.062 kg Lab Results: Accuchecks Date 08/18/16 Date 08/18/16 Time 16:30 Time 11:30 Accucheck Value: 367 Accucheck Value: 316 Accucheck Value: 273 Lab Results-Last 24 Hours 08/19/16 08/19/16 Range/Units 04:40 04:40 WBC 10.9 H (4.0-10.5) K/mm3 RBC 3.00 L (4.1-5.6) M/mm3 Hgb 8.2 L (12.5-18.0) gm/dl Hct 27.0 L (42-50) % MCV 90.0 (78-100) fl MCH 27.3 (26-32) pg MCHC 30.4 L (32-36) g/dl RDW 14.9 H (11.5-14.0) % Plt Count 472 H (150-450) K/mm3 MPV 7.9 (6-9.5) fl Segmented Neutrophils 77 H (36.-66.) % Band Neutrophils 14 H (0.0-2.0) % Lymphocytes (Manual) 5 L (24-44) % Monocytes (Manual) 2 (0.0-12.0) % Metamyelocytes 1 % Differential Comment ABNORMAL Atypical Lymphocytes 1 % Toxic Granulation 1+ Platelet Estimate INCREASED (NORMAL) Hypochromasia 1+ Tear Drop Cells 1+ Sodium 141 (136-145) mEq/L Potassium 4.0 (3.5-5.1) mEq/L Chloride 108 H (98-107) mEq/L Carbon Dioxide 24.4 (21-32) mEq/L Anion Gap 12.3 (5-15) MEQ/L BUN 17 (9-20) mg/dL Creatinine 1.18 (0.55-1.30) mg/dl Estimated GFR > 60 ML/MIN Glucose 253 H (70-110) MG/DL Calcium 8.2 L (8.5-10.1) mg/dL Total Bilirubin 0.1 L (0.2-1.0) mg/dL AST 6 L (15-37) U/L ALT 6 L (12-78) U/L Alkaline Phosphatase 58 (46-116) U/L Serum Total Protein 6.1 L (6.4-8.2) gm/dL Albumin 1.7 L (3.4-5.0) g/dL Radiology Exams: Radiology Procedures Category Date Time Status CHEST WITHOUT CONTRAST [CT] Urgent Exams 08/17/16 09:05 Completed Assessment/Plan (1) Pneumonia due to infectious organism Current Visit: Yes Status: Acute Assessment & Plan: improving clinically, initially was on rocephin/zithromax, switched to zosyn on day #2. had a bronch last week with no evidence of malignancy reported. Code(s): J18.9 - PNEUMONIA, UNSPECIFIED ORGANISM (2) Acute exacerbation of chronic obstructive airways disease Current Visit: No Status: Acute Assessment & Plan: improving Code(s): J44.1 - CHRONIC OBSTRUCTIVE PULMONARY DISEASE W (ACUTE) EXACERBATION (3) Chronic hypoxemic respiratory failure Current Visit: No Status: Acute (4) Hx pulmonary embolism Current Visit: No Status: Chronic Assessment & Plan: continue eliquis Code(s): Z86.711 - PERSONAL HISTORY OF PULMONARY EMBOLISM (5) Diabetes mellitus Current Visit: Yes Status: Acute Assessment & Plan: currently on SSI, will resume oral meds when discharged to home Code(s): E11.9 - TYPE 2 DIABETES MELLITUS WITHOUT COMPLICATIONS
[2016-08-19] MEDS: THERAGRAN MULTIVITAMIN PO SCH (08:43)
[2016-08-19] MEDS: NovoLOG Insulin SQ PRN ×4 (08:44→20:29)
[2016-08-19] MEDS: Pepcid 20 MG PO SCH ×2 (08:44→20:22)
[2016-08-19] MEDS: ELIQUIS PO SCH ×2 (08:44→20:22)
[2016-08-19] MEDS ORDERED: Tums EX 750 MG PO PRN (16:21)
[2016-08-20] MEDS: solu-MEDROL 125 MG IV SCH ×4 (00:10→21:37)
[2016-08-20] MEDS: Zosyn 2.25 GM 2.25 GM in D5w 100ML Mini Bag 100 ML 100 ML IV SCH ×4 (00:10→16:51)
[2016-08-20] MEDS: DUONEB 0.5-3 MG/3 ml Neb IH SCH ×7 (01:02→23:20)
[2016-08-20] MEDS ORDERED: Vancomycin 1GM/ Ns 250ML*** 250 ML IV ONE (03:02)
[2016-08-20] MEDS: Sodium Chloride 0.9% 10 ML FLUSH Syringe IV SCH ×3 (05:46→21:37)
[2016-08-20] MEDS: Advair Hfa 230/21 Mcg COMMON CANISTER IH SCH ×2 (07:05→19:31)
[2016-08-20] MEDS: Spiriva 18 Mcg/Cap Inhaler IH SCH (07:06)
[2016-08-20] MEDS: ELIQUIS PO SCH ×2 (09:04→21:36)
[2016-08-20] MEDS: Pepcid 20 MG PO SCH ×2 (09:04→21:37)
[2016-08-20] MEDS: THERAGRAN MULTIVITAMIN PO SCH (09:04)
[2016-08-20] MEDS: NovoLOG Insulin SQ PRN ×3 (09:05→21:38)
--- NOTE | 2016-08-20 11:07 | PCM.NOTE ---
Date and Time: 08/20/16 1102 Subjective Assessment: He reports that he continues to cough but feels like he would like to get up and move around today. He states his blood glucoses are usually good at home but high in the hospital with the IV steroids and he reports being in the hospital quite a bit lately. 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 - Review of Systems Constitutional: No Symptoms Respiratory: Cough, Short Of Breath Cardiac: No Symptoms Abdominal/Gastrointestinal: No Symptoms Genitourinary Symptoms: No Symptoms Musculoskeletal: No Symptoms Skin: No Symptoms Objective Exam General Appearance: no apparent distress, thin Neurologic Exam: alert, cooperative, normal mood/affect, other (smiling, talkative) Skin Exam: normal color, warm, dry, No rash Respiratory Exam: airway intact, other (distant breath sounds), No respiratory distress, No accessory muscle use, No crackles/rales, No rhonchi, No wheezing Cardiovascular Exam: regular rate/rhythm, normal heart sounds, No murmur, No friction rub, No gallop Gastrointestinal/Abdomen Exam: soft, normal bowel sounds, No tenderness, No distention, No mass Extremity Exam: other (no c/c/e) OBJECTIVE DATA Vital Signs: Vital Signs - 24 hr Temp Pulse Resp BP Pulse Ox 08/20/16 07:28 98.4 F 73 22 168/75 96 08/20/16 07:00 73 18 98 08/20/16 04:00 97.7 F 76 14 147/71 93 L 08/20/16 03:47 71 20 95 08/20/16 01:02 73 20 93 L 08/20/16 00:00 97.5 F 74 15 143/73 96 08/19/16 20:09 68 22 96 08/19/16 20:00 97.9 F 78 14 139/77 95 08/19/16 16:23 97.8 F 74 22 150/78 94 L 08/19/16 15:32 72 16 97 08/19/16 11:14 97.7 F 86 20 146/78 96 Oxygen-Last 24 hours O2 Percentage 4 Liters = 36% O2 Percentage 4 Liters = 36% O2 Percentage 4 Liters = 36% O2 Percentage 4 Liters = 36% O2 Percentage 3 Liters = 32% O2 Percentage 4 Liters = 36% Pain Assessment - Last Documented Pain Intensity 0 Pain Scale Used 0-10 Pain Scale Intake and Output: Intake & Output 08/18/16 08/19/16 08/20/16 08/21/16 06:59 06:59 06:59 07:59 Intake Total 2223 3208 2958 Output Total 1450 1750 1575 Balance 773 1458 1383 Weight 56.79 kg 57.062 kg 59.421 kg Lab Results: Accuchecks Accucheck Value: 275 Accucheck Value: 371 Accucheck Value: 295 Accucheck Value: 253 Assessment/Plan (1) Pneumonia due to infectious organism Current Visit: Yes Status: Acute Qualifiers: Laterality: right Lung location: lower lobe of lung Qualified Code(s): J18.1 - Lobar pneumonia, unspecified organism Assessment & Plan: Continue Zosyn. Continue oxygen at 4 L NC. He states he wears this much at home. Continue with breathing treatments. Code(s): J18.9 - PNEUMONIA, UNSPECIFIED ORGANISM (2) COPD with exacerbation Current Visit: No Status: Acute Assessment & Plan: Start to wean IV steroids as his lung sounds are clear. Continue IV antibiotics , oxygen and breathing treatments. Code(s): J44.1 - CHRONIC OBSTRUCTIVE PULMONARY DISEASE W (ACUTE) EXACERBATION (3) Diabetes mellitus Current Visit: Yes Status: Acute Qualifiers: Diabetes mellitus type: type 2 Diabetes mellitus complication status: without complication Assessment & Plan: Will check Hgb A1C today. Restart glipizide as his blood glucoses continue to run high and decreasing the steroids may help too. Code(s): E11.9 - TYPE 2 DIABETES MELLITUS WITHOUT COMPLICATIONS
[2016-08-20] MEDS: Glucotrol 5 MG PO SCH (16:51)
[2016-08-20] MEDS: xanAX 0.5 MG PO PRN (21:38)
[2016-08-21] MEDS: Zosyn 2.25 GM 2.25 GM in D5w 100ML Mini Bag 100 ML 100 ML IV SCH ×4 (00:46→17:38)
[2016-08-21] MEDS: DUONEB 0.5-3 MG/3 ml Neb IH SCH ×6 (03:32→23:11)
[2016-08-21] MEDS: solu-MEDROL 125 MG IV SCH ×3 (06:08→20:13)
[2016-08-21] MEDS: Sodium Chloride 0.9% 10 ML FLUSH Syringe IV SCH ×3 (06:08→20:12)
[2016-08-21] MEDS: Advair Hfa 230/21 Mcg COMMON CANISTER IH SCH ×2 (06:51→19:12)
[2016-08-21] MEDS: Spiriva 18 Mcg/Cap Inhaler IH SCH (06:52)
[2016-08-21] MEDS: Glucotrol 5 MG PO SCH ×2 (07:54→16:20)
[2016-08-21] MEDS: ELIQUIS PO SCH ×2 (09:18→20:12)
[2016-08-21] MEDS: Pepcid 20 MG PO SCH ×2 (09:18→20:12)
[2016-08-21] MEDS: THERAGRAN MULTIVITAMIN PO SCH (09:18)
[2016-08-21] MEDS: Pain Relieving Rub TOP PRN (09:31)
--- NOTE | 2016-08-21 11:31 | PCM.NOTE ---
Date and Time: 08/21/161126 Subjective Assessment: He continues to have shortness of breath. He was able to walk a little bit in the hallways and roll himself in his wheelchair. He denies constipation. He has been eating ok. - Review of Systems Constitutional: No Symptoms Eyes: No Symptoms Ears, Nose, & Throat: No Symptoms Respiratory: Cough, Short Of Breath, Wheezing Cardiac: No Symptoms Abdominal/Gastrointestinal: No Symptoms Genitourinary Symptoms: No Symptoms Musculoskeletal: No Symptoms Skin: No Symptoms Neurological: No Symptoms Objective Exam General Appearance: no apparent distress, alert Neurologic Exam: alert, cooperative, normal mood/affect, other (joking, smiling) Skin Exam: normal color, warm, dry, No rash Respiratory Exam: prolonged expirations, wheezing, other (equal breath sounds) Cardiovascular Exam: regular rate/rhythm, normal heart sounds, No murmur, No friction rub, No gallop Gastrointestinal/Abdomen Exam: soft, normal bowel sounds, No tenderness, No distention, No mass Extremity Exam: other (no c/c/e) OBJECTIVE DATA Vital Signs: Vital Signs - 24 hr Temp Pulse Resp BP Pulse Ox 08/21/16 08:00 79 20 98 08/21/16 07:38 98.3 F 70 18 148/77 96 08/21/16 04:20 98.0 F 73 16 137/72 97 08/21/16 03:37 73 20 97 08/21/16 00:00 97.8 F 79 14 149/77 96 08/20/16 23:00 80 18 97 08/20/16 20:00 97.9 F 86 14 142/74 94 L 08/20/16 19:00 76 18 96 08/20/16 16:19 96.7 F 74 20 158/76 97 08/20/16 15:00 78 18 98 08/20/16 11:37 97.7 F 74 22 146/80 97 08/20/16 11:00 74 18 96 Oxygen-Last 24 hours O2 Percentage 5 Liters = 40% O2 Percentage 4 Liters = 36% O2 Percentage 4 Liters = 36% O2 Percentage 4 Liters = 36% O2 Percentage 4 Liters = 36% O2 Percentage 4 Liters = 36% Pain Assessment - Last Documented Pain Intensity 5 Pain Scale Used 0-10 Pain Scale Intake and Output: Intake & Output 08/19/16 08/20/16 08/21/16 08/22/16 05:59 05:59 06:59 06:59 Intake Total Output Total 800 Balance -800 Weight Lab Results: Accuchecks Accucheck Value: 155 Accucheck Value: 300 Accucheck Value: 254 Accucheck Value: 307 Lab Results-Last 24 Hours 08/19/16 Range/Units 05:00 Hemoglobin A1c 8.4 H (4.5-6.2) Assessment/Plan (1) Pneumonia due to infectious organism Current Visit: Yes Status: Acute Qualifiers: Laterality: right Lung location: lower lobe of lung Qualified Code(s): J18.1 - Lobar pneumonia, unspecified organism Assessment & Plan: Continue Zosyn, oxygen 4 L NC. Code(s): J18.9 - PNEUMONIA, UNSPECIFIED ORGANISM (2) COPD with exacerbation Current Visit: No Status: Acute Assessment & Plan: Continue IV steroids, breathing treatments and antibiotics. Code(s): J44.1 - CHRONIC OBSTRUCTIVE PULMONARY DISEASE W (ACUTE) EXACERBATION (3) Diabetes mellitus Current Visit: Yes Status: Acute Qualifiers: Diabetes mellitus type: type 2 Diabetes mellitus complication status: without complication Assessment & Plan: His blood glucoses are better with restarting glipizide. Code(s): E11.9 - TYPE 2 DIABETES MELLITUS WITHOUT COMPLICATIONS
[2016-08-21] MEDS: NovoLOG Insulin SQ PRN ×2 (12:11→16:49)
[2016-08-21] MEDS: xanAX 0.5 MG PO PRN (20:14)
[2016-08-22] MEDS: Zosyn 2.25 GM 2.25 GM in D5w 100ML Mini Bag 100 ML 100 ML IV SCH ×3 (00:59→12:27)
[2016-08-22] MEDS: DUONEB 0.5-3 MG/3 ml Neb IH SCH ×3 (03:10→10:47)
[2016-08-22] MEDS: Sodium Chloride 0.9% 10 ML FLUSH Syringe IV SCH (05:34)
[2016-08-22] MEDS: solu-MEDROL 125 MG IV SCH ×2 (05:34→13:49)
[2016-08-22] MEDS: Advair Hfa 230/21 Mcg COMMON CANISTER IH SCH (07:27)
[2016-08-22] MEDS: Spiriva 18 Mcg/Cap Inhaler IH SCH (07:28)
--- NOTE | 2016-08-22 08:01 | PCM.DS ---
Discharge Summary Date of Admission: 08/16/16 19:11 Admitting Physician: IBETH JAEGER Primary Care Provider: IBETH JAEGER Allergies Allergies No Known Drug Allergies Allergy (Verified 05/29/16 20:30) Hospital Summary - Hospital Course Hospital Course: patient admitted with cough, fever. found to have RLL pneumonia, copd exacerbation. has been afebrile, lungs clear on discharge. overall feeling much better. - Vitals & Intake/Output Vital Signs: Vital Signs Temperature 98.2 F 08/22/16 07:26 Pulse Rate 65 08/22/16 07:29 Respiratory Rate 18 08/22/16 07:29 Blood Pressure 152/71 08/22/16 07:26 O2 Sat by Pulse Oximetry 97 08/22/16 07:29 Oxygen-Last Documented O2 Percentage 5 Liters = 40% Intake & Output: Intake & Output 08/19/16 08/20/16 08/21/16 08/22/16 10:59 10:59 11:59 11:59 Intake Total 1380 Output Total 1750 Balance -370 Weight 63.412 kg - Lab Result Diagrams: 08/19/16 04:40 08/19/16 04:40 Lab Results-Last 24 Hrs: Accuchecks Date 08/21/16 Time 16:52 Accucheck Value: 85 Accucheck Value: 297 Accucheck Value: 381 Micro Results-Entire Visit: Accuchecks Date 08/21/16 Time 16:52 Accucheck Value: 85 Accucheck Value: 297 Accucheck Value: 381 - Procedures and Test Procedures and Tests throughout Hospitalization: Therapy Orders & Screens 08/16/16 21:55 neb [Respiratory Nebulizer] Q4H Comment: DUO Diagnosis: PNEUMONIA, SEPSIS, FEVER 08/16/16 21:56 Respiratory MDI BID Comment: ADVAIR Diagnosis: PNEUMONIA, SEPSIS, FEVER 08/16/16 21:57 Respiratory MDI UD Comment: Diagnosis: PNEUMONIA, SEPSIS, FEVER 08/16/16 21:58 Oxygen NASAL CANNULA 4 lpm Comment: Diagnosis: PNEUMONIA, SEPSIS, FEVER 08/16/16 23:24 RT Screen per Nursing Assess ONCE Comment: Protocol Order Physician Instructions: Greater than 3 points order RT Admission Screen Reason For Exam: Triggered on Admission Diagnosis: PNEUMONIA, SEPSIS, FEVER Diagnosis: PNEUMONIA, SEPSIS, FEVER Pneumonia: Yes Home O2: Yes: 4L/NC Asthma: No CHF: No Home CPAP/BIPAP: No Home Nebs/MDI: Yes Total Points: 13 08/17/16 05:23 neb [Respiratory Nebulizer] UD Comment: Diagnosis: PNEUMONIA, SEPSIS, FEVER Discharge Exam General Appearance: thin Respiratory Exam: diminished breath sounds, prolonged expirations Cardiovascular Exam: regular rate/rhythm, normal heart sounds Gastrointestinal/Abdomen Exam: soft, No tenderness, No mass Extremity Exam: normal inspection, normal range of motion Final Diagnosis/Problem List - Final Discharge Diagnosis/Problem (1) Pneumonia due to infectious organism Current Visit: Yes Status: Acute (2) Acute exacerbation of chronic obstructive airways disease Current Visit: No Status: Acute (3) Chronic hypoxemic respiratory failure Current Visit: No Status: Acute (4) Hx pulmonary embolism Current Visit: No Status: Chronic (5) Diabetes mellitus Current Visit: Yes Status: Acute - Discharge Disposition: Home, Self-Care Condition: Good Prescriptions: New Guaifenesin/Codeine 5 ml [Robitussin AC Syrup Unit Dose Cup] 10 ml PO Q4H PRN PRN #20 udcup PRN Reason: Cough Continue Metformin HCl 500 mg [Glucophage 500 MG] 500 mg PO BID Albuterol/Ipratropium 3ml Neb* [DUONEB 0.5-3 MG/3 ml Neb] 3 ml IH Q4HRT #0 ampul.neb Apixaban [Eliquis] 5 mg PO BID #0 tablet Glipizide 5 mg [Glucotrol 5 MG] 5 mg PO BIDWM #0 tablet Alprazolam [Xanax 0.5 mg] 0.5 mg PO Q6H PRN PRN PRN Reason: Anxiety Fluticasone/Salmeterol 230/21 [Advair Hfa 230/21 Mcg COMMON CANISTER*] 2 puff IH BID Multivitamin W-Minerals/Lutein [Multivit-Mineral Plus 50 Tab] 1 each PO DAILY Tiotropium Free Soil Inhaler [Spiriva 18 Mcg/Cap Inhaler] 1 ea IH DAILY Menthol/Camphor [Icy Hot Advanced Relief Cream] 56 gm TP TID PRN PRN Reason: muscle pain Changed Prednisone 20 mg [Deltasone 20 mg] 20 mg PO UD #18 tablet Instructions: Heart Failure, Chronic Obstructive Pulmonary Disease, Pneumonia - - Adult, Sepsis -- Adult Follow up with: IBETH JAEGER MD [Primary Care Provider] - HAYDE YUSUF [NON-STAFF PHY W/O PRIVILEGES] - 08/29/16 9:15 am
[2016-08-22] MEDS: Glucotrol 5 MG PO SCH (08:02)
[2016-08-22] MEDS: NovoLOG Insulin SQ PRN (08:04)
[2016-08-22] MEDS: ELIQUIS PO SCH (10:01)
[2016-08-22] MEDS: Pepcid 20 MG PO SCH (10:02)
[2016-08-22] MEDS: THERAGRAN MULTIVITAMIN PO SCH (10:02)
[2016-08-22 10:51] VITALS: O2SAT 96
[2016-08-22 11:56] VITALS: BP 137/82; PULSE 70
== END 2016-08-22 12:50 | disposition home or self-care (01) | DRG 194 ==
LOC: ED 16:54 → MED SURG 19:11
PROVIDERS: ADMIT Family Medicine; ATTEND Family Medicine
DX: J18.9 Pneumonia, unspecified organism (principal); J44.1 Chronic obstructive pulmonary disease with (acute) exacerbation; J96.11 Chronic respiratory failure with hypoxia; E11.9 Type 2 diabetes mellitus without complications; Z86.711 Personal history of pulmonary embolism; J60 Coalworker's pneumoconiosis
CPT/HCPCS: 36415; 71010; 71250; 80048; 80053; 82947; 82962; 83036; 83605; 83880; 84134; 84484; 85025; 85027; 85610; 87040; 87631; 93005; 93041; 94150; 94640; 94760; 96360; 96361; 96365; 96374; 96375; 99285; J0456; J0696; J2543; J2930; J3370

== ENCOUNTER 2016-10-05 10:27 | Inpatient (IN) | payer BLACK LUNG, MEDICARE ==
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
[2016-10-05] MEDS ORDERED: Sodium Chloride 0.9% 1000 ML 1,000 ML IV SCH (11:00)
[2016-10-05 11:03] LABS: BASOPHIL % 0.1 % (0.0-0.4); Granulocytes % 83.5 % (36.0-66.0); Lymphocytes % 9.9 % (24.0-44.0); Mean Cell Volume 89.8 fl (78-100); Mean Platelet Volume 8.2 fl (6-9.5); Monocytes % 6.5 % (0.0-12.0); Platelet Count 295 K/mm3 (150-450); Red Blood Count 3.53 M/mm3 (4.1-5.6); Red Cell Distribution Width 17.4 % (11.5-14.0); White Blood Count 19.3 K/mm3 (4.0-10.5)
[2016-10-05 11:06] LABS: VBG BASE EXCESS 1.7 (-2.0-2.0); VBG CARBOXYHEMOGLOBIN 3.1 % T HGB (0.0-6.9); VBG HCO3- 26.6 meq/L (22-28); VBG HEMOGLOBIN 10.3; VBG O2 SATURATION 62.3 (95-100); VBG pH 7.41 (7.32-7.42)
--- NOTE | 2016-10-05 11:24 | XRAY ---
Indication: Short of breath. Comparison: August 16, 2016. Portable chest again hyperinflated with clearing of the right mid lung opacity and stable underlying postsurgical changes including right base pleural-parenchymal opacity. New left lower lobe infiltrate/atelectasis/effusion. Heart is not enlarged. Bony thorax intact again with old left rib fractures. Impression: New left lower lobe infiltrate/atelectasis/effusion. Stable right lung postsurgical changes.
[2016-10-05] MEDS ORDERED: ROCEPHIN 1 Gm-D5w 50 ml Bag** 50 ML IV ONE ×2 (11:26→11:27)
[2016-10-05 11:35] LABS: ALKALINE PHOSPHATASE 77 U/L (46-116); ANION GAP 14.2 MEQ/L (5-15); BILIRUBIN,TOTAL 0.7 mg/dL (0.2-1.0); BLOOD UREA NITROGEN 22 mg/dL (9-20); CHLORIDE 101 mEq/L (98-107); Carbon Dioxide 24.5 mEq/L (21-32); Glucose 217 MG/DL (70-110); Potassium 3.9 mEq/L (3.5-5.1); SGOT/AST 2 U/L (15-37); SODIUM 136 mEq/L (136-145); Total Protein 6.6 gm/dL (6.4-8.2)
[2016-10-05 11:48] LABS: SGPT/ALT < 6 U/L (12-78); TROPONIN < 0.017 ng/ml (0.000-0.056)
[2016-10-05] MEDS ORDERED: DUONEB 0.5-3 MG/3 ml Neb IH PRN (13:04)
[2016-10-05] MEDS ORDERED: DUONEB 0.5-3 MG/3 ml Neb IH SCH (15:00)
[2016-10-05] MEDS: solu-MEDROL 125 MG IV SCH ×2 (15:13→20:09)
[2016-10-05] MEDS: NovoLOG Insulin SQ PRN ×2 (16:22→21:24)
[2016-10-05] MEDS ORDERED: NON-FORMULARY ITEM (Prochlorperazine Maleate 10 Mg [Compazine 10 Mg] 10 MG) PO PRN (16:35)
[2016-10-05] MEDS ORDERED: Dulcolax 10 MG SUPP RC PRN (16:35)
[2016-10-05] MEDS ORDERED: LORAZEPAM 0.5 MG PO PRN (16:35)
[2016-10-05] MEDS ORDERED: HALOPERIDOL LACTATE PO PRN (16:35)
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
[2016-10-05] MEDS ORDERED: Compazine 5 MG PO PRN (16:55)
[2016-10-05] MEDS ORDERED: Ativan 0.5 MG PO PRN (16:57)
[2016-10-05] MEDS ORDERED: HALDOL 1 MG PO PRN ×2 (17:00→18:25)
[2016-10-05] MEDS: Glucophage 500 MG PO SCH (17:28)
[2016-10-05] MEDS: Protonix 40MG Tablet PO SCH (17:28)
[2016-10-05] MEDS: Vitamin C 500 MG PO SCH (17:28)
[2016-10-05] MEDS: Miralax Powder 17GM PACKET PO SCH (17:28)
[2016-10-05] MEDS: THERAGRAN MULTIVITAMIN PO SCH (17:28)
[2016-10-05] MEDS: Advair Hfa 230/21 Mcg COMMON CANISTER IH SCH (18:44)
[2016-10-05] MEDS: DUONEB 0.5-3 MG/3 ml Neb IH SCH ×2 (18:44→22:52)
[2016-10-05] MEDS: xanAX 0.5 MG PO SCH (21:23)
[2016-10-05] MEDS: ELIQUIS PO SCH (21:23)
[2016-10-05] MEDS: SENOKOT 8.6 MG PO SCH (21:23)
[2016-10-05] MEDS: ULTRAM 50 MG PO SCH (21:23)
[2016-10-06] MEDS: Sodium Chloride 0.9% 1000 ML 1,000 ML IV SCH ×2 (02:53→23:10)
[2016-10-06] MEDS: solu-MEDROL 125 MG IV SCH ×4 (02:53→20:57)
[2016-10-06] MEDS: DUONEB 0.5-3 MG/3 ml Neb IH SCH ×6 (03:07→23:22)
[2016-10-06 06:05] LABS: Mean Cell Volume 89.3 fl (78-100); Mean Platelet Volume 8.3 fl (6-9.5); Platelet Count 292 K/mm3 (150-450); Red Blood Count 2.71 M/mm3 (4.1-5.6); Red Cell Distribution Width 16.9 % (11.5-14.0); White Blood Count 12.7 K/mm3 (4.0-10.5)
[2016-10-06 06:25] LABS: ALBUMIN 1.7 g/dL (3.4-5.0); ALKALINE PHOSPHATASE 68 U/L (46-116); ANION GAP 12.6 MEQ/L (5-15); BILIRUBIN,TOTAL 0.4 mg/dL (0.2-1.0); BLOOD UREA NITROGEN 20 mg/dL (9-20); CHLORIDE 103 mEq/L (98-107); Carbon Dioxide 26.3 mEq/L (21-32); Glucose 270 MG/DL (70-110); Potassium 3.4 mEq/L (3.5-5.1); SGOT/AST 4 U/L (15-37); SODIUM 139 mEq/L (136-145)
[2016-10-06] MEDS: Advair Hfa 230/21 Mcg COMMON CANISTER IH SCH ×2 (06:42→18:51)
[2016-10-06] MEDS: Spiriva 18 Mcg/Cap Inhaler IH SCH (06:43)
[2016-10-06] MEDS ORDERED: Spiriva 18 Mcg/Cap Inhaler IH ONE (06:46)
[2016-10-06 07:08] LABS: BAND 2 % (0.0-2.0); Platelet Estimate NORMAL (NORMAL); Total Cells Counted 100
[2016-10-06] MEDS: NovoLOG Insulin SQ PRN ×4 (07:35→21:00)
[2016-10-06] MEDS: Glucophage 500 MG PO SCH ×2 (07:35→16:27)
--- NOTE | 2016-10-06 07:54 | PCM.NOTE ---
Date and Time: 10/06/16 0753 Subjective Assessment: patient notes some improvement in his breathing today, got some rest overnight. Objective Exam General Appearance: no apparent distress, alert, cachetic Respiratory Exam: diminished breath sounds, prolonged expirations, wheezing Cardiovascular Exam: regular rate/rhythm, normal heart sounds Gastrointestinal/Abdomen Exam: soft, No tenderness, No mass OBJECTIVE DATA Vital Signs: Vital Signs - 24 hr Temp Pulse Resp BP Pulse Ox 10/06/16 06:54 98.8 F 75 18 92/50 97 10/06/16 06:50 75 20 95 10/06/16 04:00 96.1 F 73 21 100/60 95 10/06/16 03:07 73 21 95 10/06/16 00:00 97.5 F 77 22 93/54 97 10/05/16 22:52 77 22 97 10/05/16 20:00 98.0 F 88 20 92/53 93 L 10/05/16 18:44 82 20 95 10/05/16 16:00 98.7 F 93 H 18 98/57 95 10/05/16 15:52 18 10/05/16 14:32 94 H 20 97 10/05/16 12:56 99.5 F 103 H 20 123/68 95 10/05/16 12:50 104 H 28 H 98/62 97 10/05/16 12:23 93 L 10/05/16 12:00 102 H 30 H 99/63 97 10/05/16 11:35 110 H 24 104/54 96 10/05/16 10:29 99.8 F 128 H 30 H 99/58 93 L Oxygen-Last 24 hours O2 Percentage 4 Liters = 36% O2 Percentage 4 Liters = 36% O2 Percentage 4 Liters = 36% O2 Percentage 4 Liters = 36% O2 Percentage 4 Liters = 36% O2 Percentage 4 Liters = 36% O2 Percentage 4 Liters = 36% O2 Percentage 4 Liters = 36% O2 Percentage 4 Liters = 36% O2 Percentage 4 Liters = 36% O2 Percentage 4 Liters = 36% Pain Assessment - Last Documented Pain Intensity 0 Pain Scale Used 0-10 Pain Scale Intake and Output: Intake & Output 10/03/16 10/04/16 10/05/16 10/06/16 11:59 11:59 11:59 11:59 Intake Total 2185 Output Total 1150 Balance 1035 Weight 56.563 kg Lab Results: Accuchecks Date 10/06/16 Date 10/05/16 Date 10/05/16 Time 07:42 Accucheck Value: 294 Accucheck Value: 359 Accucheck Value: 329 Lab Results-Last 24 Hours 10/06/16 Range/Units 05:30 WBC 12.7 H (4.0-10.5) K/mm3 RBC 2.71 L (4.1-5.6) M/mm3 Hgb 7.6 L (12.5-18.0) gm/dl Hct 24.2 L (42-50) % MCV 89.3 (78-100) fl MCH 28.0 (26-32) pg MCHC 31.4 L (32-36) g/dl RDW 16.9 H (11.5-14.0) % Plt Count 292 (150-450) K/mm3 MPV 8.3 (6-9.5) fl Segmented Neutrophils 93 H (36.-66.) % Band Neutrophils 2 (0.0-2.0) % Lymphocytes (Manual) 5 L (24-44) % Differential Comment NORMAL Platelet Estimate NORMAL (NORMAL) Assessment/Plan (1) Pneumonia Current Visit: Yes Status: Acute Qualifiers: Pneumonia type: due to unspecified organism Laterality: left Lung location: lower lobe of lung Qualified Code(s): J18.1 - Lobar pneumonia, unspecified organism Assessment & Plan: continue rocephin and zithromax Code(s): J18.9 - PNEUMONIA, UNSPECIFIED ORGANISM (2) Acute exacerbation of chronic obstructive pulmonary disease Current Visit: No Status: Acute Assessment & Plan: continue IV solu medrol Code(s): J44.1 - CHRONIC OBSTRUCTIVE PULMONARY DISEASE W (ACUTE) EXACERBATION
[2016-10-06 08:02] LABS: SGPT/ALT < 6 U/L (12-78)
[2016-10-06] MEDS: THERAGRAN MULTIVITAMIN PO SCH (09:43)
[2016-10-06] MEDS: Protonix 40MG Tablet PO SCH (09:43)
[2016-10-06] MEDS: ULTRAM 50 MG PO SCH ×2 (09:44→20:59)
[2016-10-06] MEDS: Vitamin C 500 MG PO SCH (09:45)
[2016-10-06] MEDS: ELIQUIS PO SCH ×2 (09:45→21:00)
[2016-10-06] MEDS: Miralax Powder 17GM PACKET PO SCH (09:48)
[2016-10-06] MEDS: ROCEPHIN 1 Gm-D5w 50 ml Bag** 50 ML IV SCH (09:48)
[2016-10-06] MEDS: SENOKOT 8.6 MG PO SCH ×2 (09:48→20:59)
[2016-10-06] MEDS ORDERED: NON-FORMULARY ITEM (Omeprazole 20 Mg [Prilosec 20 Mg] 20 MG) PO SCH (10:00)
[2016-10-06] MEDS ORDERED: NON-FORMULARY ITEM (Ascorbic Acid [Vitamin C] 250 MG) PO SCH (10:00)
[2016-10-06] MEDS ORDERED: NON-FORMULARY ITEM (Multivitamin [Multivitamins] 1 EACH) PO SCH (10:00)
[2016-10-06] MEDS: xanAX 0.5 MG PO SCH (21:00)
[2016-10-07] MEDS: solu-MEDROL 125 MG IV SCH ×4 (02:49→21:49)
[2016-10-07] MEDS: DUONEB 0.5-3 MG/3 ml Neb IH SCH ×6 (03:05→22:58)
[2016-10-07 05:50] LABS: Mean Cell Volume 90.4 fl (78-100); Mean Platelet Volume 8.2 fl (6-9.5); Platelet Count 313 K/mm3 (150-450); Red Blood Count 2.61 M/mm3 (4.1-5.6); Red Cell Distribution Width 16.7 % (11.5-14.0); White Blood Count 19.7 K/mm3 (4.0-10.5)
[2016-10-07 05:54] LABS: Mean Corpuscular Hemoglobin 28.3 pg (26-32)
[2016-10-07 06:03] LABS: BLOOD UREA NITROGEN 19 mg/dL (9-20); CHLORIDE 106 mEq/L (98-107); Glucose 250 MG/DL (70-110); Potassium 3.8 mEq/L (3.5-5.1); SODIUM 141 mEq/L (136-145)
[2016-10-07] MEDS: Spiriva 18 Mcg/Cap Inhaler IH SCH (06:50)
[2016-10-07] MEDS: Advair Hfa 230/21 Mcg COMMON CANISTER IH SCH ×2 (06:50→18:51)
[2016-10-07 07:12] LABS: ANISOCYTOSIS 1+; BAND 10 % (0.0-2.0); Hypochromia 2+; Platelet Estimate NORMAL (NORMAL); Polychromasia 1+; Total Cells Counted 100
[2016-10-07] MEDS: Glucophage 500 MG PO SCH ×2 (07:48→17:10)
--- NOTE | 2016-10-07 08:17 | PCM.NOTE ---
Date and Time: 10/07/16813 Subjective Assessment: no new complaints, tolerating po. still has significant dry and hacking cough, dyspneic. Objective Exam General Appearance: cachetic Neurologic Exam: alert Skin Exam: normal color, warm, dry Respiratory Exam: prolonged expirations, wheezing Cardiovascular Exam: regular rate/rhythm, normal heart sounds Gastrointestinal/Abdomen Exam: soft, No tenderness, No mass OBJECTIVE DATA Vital Signs: Vital Signs - 24 hr Temp Pulse Resp BP Pulse Ox 10/07/16 07:40 97.5 F 85 19 118/60 96 10/07/16 06:52 82 18 94 L 10/07/16 03:54 97.5 F 83 18 123/62 95 10/07/16 03:06 83 18 95 10/07/16 00:00 97.5 F 83 20 110/59 95 10/06/16 23:22 83 20 96 10/06/16 19:45 97.7 F 92 H 20 121/60 95 10/06/16 18:51 87 16 95 10/06/16 15:54 97.7 F 91 H 16 99/55 94 L 10/06/16 14:53 90 20 95 10/06/16 12:00 97.7 F 84 20 89/57 95 10/06/16 10:32 81 18 95 Oxygen-Last 24 hours O2 Percentage 4 Liters = 36% O2 Percentage 4 Liters = 36% O2 Percentage 4 Liters = 36% O2 Percentage 4 Liters = 36% O2 Percentage 4 Liters = 36% O2 Percentage 4 Liters = 36% Pain Assessment - Last Documented Pain Intensity 0 Pain Scale Used FLACC Intake and Output: Intake & Output 10/04/16 10/05/16 10/06/16 10/07/16 11:59 11:59 11:59 11:59 Intake Total 2425 3519 Output Total 1150 1350 Balance 1275 2169 Weight 56.563 kg 58.196 kg Lab Results: Accuchecks Date 10/06/16 Date 10/06/16 Date 10/06/16 Time 15:57 Time 11:31 Accucheck Value: 352 Accucheck Value: 312 Lab Results-Last 24 Hours 10/07/16 10/07/16 Range/Units 05:15 05:15 WBC 19.7 H (4.0-10.5) K/mm3 RBC 2.61 L (4.1-5.6) M/mm3 Hgb 7.4 L (12.5-18.0) gm/dl Hct 23.6 L (42-50) % MCV 90.4 (78-100) fl MCH 28.3 (26-32) pg MCHC 31.4 L (32-36) g/dl RDW 16.7 H (11.5-14.0) % Plt Count 313 (150-450) K/mm3 MPV 8.2 (6-9.5) fl Segmented Neutrophils 87 H (36.-66.) % Band Neutrophils 10 H (0.0-2.0) % Lymphocytes (Manual) 1 L (24-44) % Monocytes (Manual) 2 (0.0-12.0) % Differential Comment ABNORMAL Platelet Estimate NORMAL (NORMAL) Polychromasia 1+ Hypochromasia 2+ Anisocytosis 1+ Sodium 141 (136-145) mEq/L Potassium 3.8 (3.5-5.1) mEq/L Chloride 106 (98-107) mEq/L Carbon Dioxide 23.0 (21-32) mEq/L Anion Gap 16.0 H (5-15) MEQ/L BUN 19 (9-20) mg/dL Creatinine 0.97 (0.55-1.30) mg/dl Estimated GFR > 60 ML/MIN Glucose 250 H (70-110) MG/DL Calcium 8.8 (8.5-10.1) mg/dL Assessment/Plan (1) Pneumonia Current Visit: Yes Status: Acute Qualifiers: Pneumonia type: due to unspecified organism Laterality: left Lung location: lower lobe of lung Qualified Code(s): J18.1 - Lobar pneumonia, unspecified organism Assessment & Plan: continue rocephin and zithromax Code(s): J18.9 - PNEUMONIA, UNSPECIFIED ORGANISM (2) Acute exacerbation of chronic obstructive pulmonary disease Current Visit: No Status: Acute Assessment & Plan: solu medrol, nebs and abx. patient has endstage copd Code(s): J44.1 - CHRONIC OBSTRUCTIVE PULMONARY DISEASE W (ACUTE) EXACERBATION (3) Anemia Current Visit: Yes Status: Acute Assessment & Plan: cause likely multifactorial, dilutional from fluids, also likely from malnutrition due to endstage copd. patient was on hospice prior to admission. Code(s): D64.9 - ANEMIA, UNSPECIFIED
[2016-10-07] MEDS: ROCEPHIN 1 Gm-D5w 50 ml Bag** 50 ML IV SCH (09:45)
[2016-10-07] MEDS: ELIQUIS PO SCH ×2 (09:46→21:49)
[2016-10-07] MEDS: ULTRAM 50 MG PO SCH ×2 (09:46→21:50)
[2016-10-07] MEDS: Protonix 40MG Tablet PO SCH (09:46)
[2016-10-07] MEDS: THERAGRAN MULTIVITAMIN PO SCH (09:46)
[2016-10-07] MEDS: SENOKOT 8.6 MG PO SCH ×2 (09:47→21:50)
[2016-10-07] MEDS: Miralax Powder 17GM PACKET PO SCH (09:47)
[2016-10-07] MEDS: Vitamin C 500 MG PO SCH (10:21)
[2016-10-07] MEDS: Tussionex Pennkinetic Susp PO PRN ×2 (10:21→22:41)
[2016-10-07] MEDS: NovoLOG Insulin SQ PRN ×3 (12:12→21:51)
[2016-10-07] MEDS: Sodium Chloride 0.9% 1000 ML 1,000 ML IV SCH (20:27)
[2016-10-07] MEDS: xanAX 0.5 MG PO SCH (21:50)
[2016-10-08] MEDS: Sodium Chloride 0.9% 1000 ML 1,000 ML IV SCH ×2 (02:59→16:15)
[2016-10-08] MEDS: DUONEB 0.5-3 MG/3 ml Neb IH SCH ×6 (02:59→23:00)
[2016-10-08] MEDS: solu-MEDROL 125 MG IV SCH ×4 (03:09→22:11)
[2016-10-08 05:38] LABS: Mean Cell Volume 90.9 fl (78-100); Mean Platelet Volume 8.2 fl (6-9.5); Platelet Count 354 K/mm3 (150-450); Red Blood Count 2.86 M/mm3 (4.1-5.6); White Blood Count 15.6 K/mm3 (4.0-10.5)
[2016-10-08 05:49] LABS: Mean Corpuscular Hemoglobin 27.9 pg (26-32)
[2016-10-08 05:59] LABS: ANION GAP 14.8 MEQ/L (5-15); BLOOD UREA NITROGEN 18 mg/dL (9-20); CHLORIDE 106 mEq/L (98-107); Carbon Dioxide 24.9 mEq/L (21-32); Glucose 283 MG/DL (70-110); Potassium 4.1 mEq/L (3.5-5.1); SODIUM 142 mEq/L (136-145)
[2016-10-08 07:22] LABS: ANISOCYTOSIS 1+; BAND 1 % (0.0-2.0); Hypochromia 1+; Platelet Estimate NORMAL (NORMAL); Total Cells Counted 100; Toxic Granulation 1+
[2016-10-08] MEDS: Advair Hfa 230/21 Mcg COMMON CANISTER IH SCH ×2 (07:33→18:36)
[2016-10-08] MEDS: Spiriva 18 Mcg/Cap Inhaler IH SCH (07:33)
[2016-10-08] MEDS: NovoLOG Insulin SQ PRN ×3 (08:12→22:34)
[2016-10-08] MEDS: Glucophage 500 MG PO SCH ×2 (08:12→16:19)
[2016-10-08] MEDS: Protonix 40MG Tablet PO SCH (09:30)
[2016-10-08] MEDS: ULTRAM 50 MG PO SCH ×2 (09:30→22:10)
[2016-10-08] MEDS: ELIQUIS PO SCH ×2 (09:30→22:10)
[2016-10-08] MEDS: THERAGRAN MULTIVITAMIN PO SCH (09:30)
[2016-10-08] MEDS: SENOKOT 8.6 MG PO SCH ×2 (09:30→22:09)
[2016-10-08] MEDS: ROCEPHIN 1 Gm-D5w 50 ml Bag** 50 ML IV SCH (09:30)
[2016-10-08] MEDS: Miralax Powder 17GM PACKET PO SCH (09:31)
[2016-10-08] MEDS: Vitamin C 500 MG PO SCH (09:31)
[2016-10-08] MEDS ORDERED: Zofran 4 MG/2 ML VIAL IV PRN (09:40)
[2016-10-08] MEDS: xanAX 0.5 MG PO SCH (22:10)
[2016-10-09] MEDS: DUONEB 0.5-3 MG/3 ml Neb IH SCH ×5 (03:14→18:32)
[2016-10-09] MEDS: solu-MEDROL 125 MG IV SCH (05:55)
[2016-10-09] MEDS: Spiriva 18 Mcg/Cap Inhaler IH SCH (07:20)
[2016-10-09] MEDS: Advair Hfa 230/21 Mcg COMMON CANISTER IH SCH ×2 (07:20→18:34)
[2016-10-09] MEDS: Glucophage 500 MG PO SCH ×2 (08:49→17:36)
[2016-10-09] MEDS: ELIQUIS PO SCH ×2 (08:49→22:55)
[2016-10-09] MEDS: Miralax Powder 17GM PACKET PO SCH ×2 (08:50→16:39)
[2016-10-09] MEDS: SENOKOT 8.6 MG PO SCH ×2 (08:50→22:55)
[2016-10-09] MEDS: Protonix 40MG Tablet PO SCH (08:50)
[2016-10-09] MEDS: ROCEPHIN 1 Gm-D5w 50 ml Bag** 50 ML IV SCH (08:50)
[2016-10-09] MEDS: ULTRAM 50 MG PO SCH ×2 (08:50→22:54)
[2016-10-09] MEDS: Vitamin C 500 MG PO SCH (08:50)
[2016-10-09] MEDS: THERAGRAN MULTIVITAMIN PO SCH (08:50)
[2016-10-09] MEDS: NovoLOG Insulin SQ PRN ×3 (08:52→17:41)
[2016-10-09] MEDS ORDERED: Reglan 10 MG PO SCH ×2 (10:15→11:30)
[2016-10-09] MEDS: DELTASONE 20 MG PO SCH (10:40)
[2016-10-09] MEDS: Reglan 10 MG PO SCH ×3 (10:41→22:54)
[2016-10-09] MEDS: Sodium Chloride 0.9% 1000 ML 1,000 ML IV SCH ×2 (13:07→23:00)
[2016-10-09] MEDS: xanAX 0.5 MG PO SCH (22:54)
[2016-10-10] MEDS: DUONEB 0.5-3 MG/3 ml Neb IH SCH ×7 (00:24→22:38)
[2016-10-10] MEDS: Spiriva 18 Mcg/Cap Inhaler IH SCH (06:56)
[2016-10-10] MEDS: Advair Hfa 230/21 Mcg COMMON CANISTER IH SCH ×2 (06:56→18:54)
[2016-10-10] MEDS: Reglan 10 MG PO SCH ×4 (08:33→22:15)
[2016-10-10] MEDS: ANASPAZ 0.125 MG PO PRN (08:33)
[2016-10-10] MEDS: Glucophage 500 MG PO SCH ×2 (08:34→16:54)
[2016-10-10] MEDS ORDERED: Tessalon Perles 100 MG PO PRN (08:34)
[2016-10-10] MEDS: DELTASONE 20 MG PO SCH (08:35)
--- NOTE | 2016-10-10 08:37 | PCM.NOTE ---
Date and Time: 10/10/16 0834 Subjective Assessment: patient c/o severe cough, also having problems with constipation. last bm was 2- 3 days ago Objective Exam General Appearance: no apparent distress, alert, cachetic Respiratory Exam: diminished breath sounds, prolonged expirations Cardiovascular Exam: regular rate/rhythm, normal heart sounds Gastrointestinal/Abdomen Exam: soft, No tenderness, No mass Extremity Exam: normal inspection, normal range of motion OBJECTIVE DATA Vital Signs: Vital Signs - 24 hr Temp Pulse Resp BP Pulse Ox 10/10/16 07:55 97.1 F 80 20 138/83 92 L 10/10/16 06:58 86 22 94 L 10/10/16 04:00 97.9 F 78 24 137/70 94 L 10/10/16 03:00 75 16 97 10/10/16 00:00 98.7 F 85 24 125/67 96 10/09/16 23:00 82 18 96 10/09/16 20:00 98.6 F 90 20 135/74 93 L 10/09/16 18:35 86 18 97 10/09/16 16:00 98.4 F 99 H 20 146/77 93 L 10/09/16 14:30 86 18 98 10/09/16 12:00 98.9 F 88 20 144/76 94 L 10/09/16 11:00 86 18 98 Oxygen-Last 24 hours O2 Percentage 4 Liters = 36% O2 Percentage 4 Liters = 36% O2 Percentage 4 Liters = 36% O2 Percentage 4 Liters = 36% O2 Percentage 4 Liters = 36% O2 Percentage 4 Liters = 36% Pain Assessment - Last Documented Pain Intensity 0 Pain Scale Used 0-10 Pain Scale Intake and Output: Intake & Output 10/07/16 10/08/16 10/09/16 10/10/16 11:59 11:59 11:59 11:59 Intake Total 3959 2847 3697 3236 Output Total 1350 1850 1660 1450 Balance 2609 997 2037 1786 Weight 58.196 kg 61.825 kg 62.686 kg 62.505 kg Lab Results: Accuchecks Date 10/09/16 Time 22:00 Accucheck Value: 186 Accucheck Value: 178 Accucheck Value: 238 Accucheck Value: 273 Assessment/Plan (1) Pneumonia Current Visit: Yes Status: Acute Qualifiers: Pneumonia type: due to unspecified organism Laterality: left Lung location: lower lobe of lung Qualified Code(s): J18.1 - Lobar pneumonia, unspecified organism Assessment & Plan: on rocephin and zithromax, add tessalon perles for cough, tussionex not controlling cough. 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 will cut IV fluid rate to 20mL/hr, patient c/o excessive urination Code(s): D64.9 - ANEMIA, UNSPECIFIED
[2016-10-10] MEDS: Vitamin C 500 MG PO SCH (08:40)
[2016-10-10] MEDS: THERAGRAN MULTIVITAMIN PO SCH (08:41)
[2016-10-10] MEDS: Protonix 40MG Tablet PO SCH (08:42)
[2016-10-10] MEDS: ULTRAM 50 MG PO SCH ×2 (08:42→22:15)
[2016-10-10] MEDS: SENOKOT 8.6 MG PO SCH ×2 (08:43→22:15)
[2016-10-10] MEDS: ELIQUIS PO SCH ×2 (08:43→22:15)
[2016-10-10] MEDS: Miralax Powder 17GM PACKET PO SCH (08:45)
[2016-10-10] MEDS: Sodium Chloride 0.9% 1000 ML 1,000 ML IV SCH (09:47)
[2016-10-10] MEDS: ROCEPHIN 1 Gm-D5w 50 ml Bag** 50 ML IV SCH (09:49)
[2016-10-10] MEDS: Tessalon Perles 100 MG PO PRN ×2 (11:06→22:15)
[2016-10-10] MEDS: Ativan 0.5 MG PO PRN (14:31)
[2016-10-10] MEDS: NovoLOG Insulin SQ PRN ×2 (16:56→23:56)
[2016-10-10] MEDS: xanAX 0.5 MG PO SCH (22:15)
[2016-10-11] MEDS: DUONEB 0.5-3 MG/3 ml Neb IH SCH ×6 (02:42→23:40)
[2016-10-11] MEDS ORDERED: DUONEB 0.5-3 MG/3 ml Neb IH PRN (04:21)
[2016-10-11] MEDS: Ativan 0.5 MG PO PRN (04:23)
[2016-10-11 05:18] LABS: A-aADO2 369; ALLEN TEST OK? YES; ARTERIAL BLD GAS O2 SATURATION 96.5 % (95-100); ARTERIAL BLOOD GAS BASE EXCESS 10.1 (-2.0-2.0); ARTERIAL BLOOD GAS FIO2 70 %; ARTERIAL BLOOD GAS PO2 75 mmHg (75-100)
[2016-10-11] MEDS: Reglan 10 MG PO SCH ×4 (07:22→22:08)
[2016-10-11] MEDS: Glucophage 500 MG PO SCH ×2 (07:22→16:59)
[2016-10-11] MEDS: SENOKOT 8.6 MG PO SCH ×2 (08:12→22:08)
[2016-10-11] MEDS: Vitamin C 500 MG PO SCH (08:12)
[2016-10-11] MEDS: ELIQUIS PO SCH ×2 (08:12→22:07)
[2016-10-11] MEDS: DELTASONE 20 MG PO SCH (08:12)
[2016-10-11] MEDS: ULTRAM 50 MG PO SCH ×2 (08:13→22:07)
[2016-10-11] MEDS: THERAGRAN MULTIVITAMIN PO SCH (08:13)
[2016-10-11] MEDS: ROCEPHIN 1 Gm-D5w 50 ml Bag** 50 ML IV SCH (08:13)
[2016-10-11] MEDS: Protonix 40MG Tablet PO SCH (08:13)
[2016-10-11] MEDS: Miralax Powder 17GM PACKET PO SCH (08:14)
[2016-10-11] MEDS ORDERED: MORPHINE SULFATE 2 MG INJ IV PRN (08:47)
--- NOTE | 2016-10-11 08:54 | PCM.NOTE ---
Date and Time: 10/11/16 0849 Subjective Assessment: Pt continues to have raspy cough and shortness of breath. The Tesselon Perles helped the cough somewhat. C/o SOB. States he felt better intially on admission but now does not. - Review of Systems Constitutional: No Fever Respiratory: Cough, Short Of Breath Objective Exam General Appearance: no apparent distress, other (foul smell in the room, ? related to patient's sputum) Neurologic Exam: alert, oriented x 3, cooperative Skin Exam: normal color, warm, dry Neck Exam: normal inspection Respiratory Exam: diminished breath sounds, No crackles/rales, No rhonchi, No wheezing Cardiovascular Exam: regular rate/rhythm, normal heart sounds, No murmur Extremity Exam: No pedal edema, No swelling OBJECTIVE DATA Vital Signs: Vital Signs - 24 hr Temp Pulse Resp BP Pulse Ox 10/11/16 07:42 18 10/11/16 07:36 98.0 F 95 H 18 121/70 95 10/11/16 07:06 93 H 16 92 L 10/11/16 04:22 98 H 28 H 90 L 10/11/16 04:00 98.5 F 93 H 28 H 128/69 92 L 10/11/16 02:45 84 20 96 10/11/16 00:00 98.6 F 90 22 123/69 96 10/10/16 22:41 85 20 97 10/10/16 20:00 98.8 F 88 21 134/69 96 10/10/16 18:57 94 H 20 97 10/10/16 16:16 96 10/10/16 16:00 98.1 F 89 22 128/84 93 L 10/10/16 14:53 101 H 24 93 L 10/10/16 11:35 98.0 F 84 21 137/70 95 10/10/16 11:16 79 20 95 Oxygen-Last 24 hours O2 Percentage 5 Liters = 40% O2 Percentage 3 Liters = 32% O2 Percentage 5 Liters = 40% O2 Percentage 5 Liters = 40% O2 Percentage 4 Liters = 36% O2 Percentage 4 Liters = 36% Pain Assessment - Last Documented Pain Intensity 0 Pain Scale Used 0-10 Pain Scale Intake and Output: Intake & Output 10/08/16 10/09/16 10/10/16 10/11/16 11:59 11:59 11:59 11:59 Intake Total 2847 3697 3656 1000 Output Total 1850 1660 2750 120 Balance 997 2037 906 880 Weight 61.825 kg 62.686 kg 62.505 kg 57.697 kg Lab Results: Accuchecks Date 10/11/16 Date 10/10/16 Time 07:30 Time 22:00 Accucheck Value: 131 Accucheck Value: 318 Accucheck Value: 205 Accucheck Value: 175 Lab Results-Last 24 Hours 10/11/16 Range/Units 05:08 Puncture Site LEFT RADIAL pCO2 44 (35-45) mmHg pO2 75 (75-100) mmHg Base Excess 10.1 H (-2.0-2.0) O2 Saturation 95.1 (94-100) g/dF ABG pH 7.50 H (7.35-7.45) ABG HCO3 34.3 H* (22-28) ABG O2 Sat (Measured) 96.5 (95-100) % Donato Test YES A-a Gradient 369 a/A Ratio 0.17 Hemoglobin 9.8 Carboxyhemoglobin 0.6 (0.0-6.9) % THgb Methemoglobin 0.8 L (1.4-1.5) % Potassium 3.8 (3.5-5.1) Temperature 37.0 C POC O2 Flow Rate 70 % Multi-Disciplinary Progress Notes: Multi-Disciplinary Progress Notes 10/11/16 05:27 Respiratory Note by Milena Issa ABOUT 0420 R.N. CALLS AND STATES PT IS HAVING A HARD TIME BREATHING AND A COUGHING FIT. I GO TO PT'S ROOM AND HE APPEARS SOB AND IS COUGHING. HR 100, RR 28, SATS ARE 90% ON 5L OXYGEN, LUNG SOUNDS RHONCHI. GAVE PT A BREATHING TX AND GAVE HIM A FLUTTER DEVICE. COUGH IS DRY AND NON PRODUCTIVE. NURSE GAVE PT ATIVAN AT THIS TIME ALSO. CHECKED ON PT ABOUT 30 MINS LATER PT STILL SOB AND COUGHING. SATS ON 5L ARE 88-89%. GOT AN ABG AT THIS TIME. AFTER ABG CHANGED PT TO A 8L OXYMASK. HAD TO RESTICK PT FOR ABG BECAUSE FIRST BLOOD DRAW WAS VENOUS BLOOD. PO2 WAS 75, CO2 44, PH 7.50, HCO3 34.3 SAT ON ABG 96. PT DID ADMIT TO USING HIS E-CIGARETTE TONIGHT. CHANGED OXYGEN BACK TO THE 5L NASAL CANNULA. PT STILL COUGHING Initialized on 10/11/16 05:27 - END OF NOTE Assessment/Plan (1) Pneumonia Current Visit: Yes Status: Acute Qualifiers: Pneumonia type: due to unspecified organism Laterality: left Lung location: lower lobe of lung Qualified Code(s): J18.1 - Lobar pneumonia, unspecified organism Assessment & Plan: some initial improvement; changed rocephin to levaquin Code(s): J18.9 - PNEUMONIA, UNSPECIFIED ORGANISM (2) Anxiety Current Visit: No Status: Acute Assessment & Plan: increase ativan from 0.5mg prn to 1 mg Code(s): F41.9 - ANXIETY DISORDER, UNSPECIFIED (3) Anemia Current Visit: Yes Status: Acute Qualifiers: Anemia type: unspecified type Qualified Code(s): D64.9 - Anemia, unspecified Assessment & Plan: hgb 8.0 yesterday, thought to be chronic disease and dilutional. Code(s): D64.9 - ANEMIA, UNSPECIFIED (4) End stage COPD Current Visit: No Status: Chronic Assessment & Plan: Pt has been on hospice but not on it currently. Code(s): J44.9 - CHRONIC OBSTRUCTIVE PULMONARY DISEASE, UNSPECIFIED (5) Hyperglycemia Current Visit: No Status: Chronic Assessment & Plan: on metformin Code(s): R73.9 - HYPERGLYCEMIA, UNSPECIFIED (6) Constipation Current Visit: Yes Status: Resolved Assessment & Plan: had BM yesterday; on colace Code(s): K59.00 - CONSTIPATION, UNSPECIFIED
[2016-10-11] MEDS: Levofloxacin 500MG/100ML D5W 100 ML IV SCH (09:47)
[2016-10-11 09:55] LABS: Mean Cell Volume 91.2 fl (78-100); Mean Platelet Volume 7.9 fl (6-9.5); Platelet Count 505 K/mm3 (150-450); Red Blood Count 3.41 M/mm3 (4.1-5.6); Red Cell Distribution Width 17.8 % (11.5-14.0); White Blood Count 13.4 K/mm3 (4.0-10.5)
[2016-10-11 09:59] LABS: Mean Corpuscular Hemoglobin 28.1 pg (26-32)
[2016-10-11] MEDS: NovoLOG Insulin SQ PRN ×2 (17:00→22:09)
[2016-10-11] MEDS: Advair Hfa 230/21 Mcg COMMON CANISTER IH SCH ×2 (20:10→20:11)
[2016-10-11] MEDS: xanAX 0.5 MG PO SCH (22:08)
[2016-10-12] MEDS: Tessalon Perles 100 MG PO PRN ×2 (03:28→21:52)
[2016-10-12] MEDS: DUONEB 0.5-3 MG/3 ml Neb IH SCH ×6 (03:46→23:52)
[2016-10-12] MEDS: Ativan 0.5 MG PO PRN (04:49)
[2016-10-12 05:39] LABS: Mean Cell Volume 91.7 fl (78-100); Mean Platelet Volume 7.8 fl (6-9.5); Platelet Count 530 K/mm3 (150-450); Red Blood Count 3.37 M/mm3 (4.1-5.6); Red Cell Distribution Width 18.5 % (11.5-14.0); White Blood Count 17.6 K/mm3 (4.0-10.5)
[2016-10-12 05:46] LABS: Mean Corpuscular Hemoglobin 27.8 pg (26-32)
[2016-10-12 05:53] LABS: ANION GAP 8.8 MEQ/L (5-15); BLOOD UREA NITROGEN 13 mg/dL (9-20); CHLORIDE 104 mEq/L (98-107); Carbon Dioxide 33.9 mEq/L (21-32); Glucose 146 MG/DL (70-110); Potassium 3.7 mEq/L (3.5-5.1); SODIUM 143 mEq/L (136-145)
[2016-10-12] MEDS: Advair Hfa 230/21 Mcg COMMON CANISTER IH SCH ×2 (07:04→18:57)
[2016-10-12] MEDS: Spiriva 18 Mcg/Cap Inhaler IH SCH (07:05)
[2016-10-12 07:13] LABS: Total Cells Counted 100
[2016-10-12 07:16] LABS: ANISOCYTOSIS 1+; Platelet Estimate INCREASED (NORMAL); Poikilocytosis 1+; Polychromasia 1+; Schistocytes 1+
[2016-10-12] MEDS: Glucophage 500 MG PO SCH ×2 (07:58→16:26)
[2016-10-12] MEDS: Reglan 10 MG PO SCH ×4 (07:58→21:50)
[2016-10-12] MEDS: Sodium Chloride 0.9% 1000 ML 1,000 ML IV SCH ×2 (08:01→08:15)
[2016-10-12] MEDS: Vitamin C 500 MG PO SCH (08:01)
[2016-10-12] MEDS: Protonix 40MG Tablet PO SCH (08:02)
[2016-10-12] MEDS: THERAGRAN MULTIVITAMIN PO SCH (08:03)
[2016-10-12] MEDS: ELIQUIS PO SCH ×2 (08:04→21:50)
[2016-10-12] MEDS: SENOKOT 8.6 MG PO SCH ×2 (08:04→21:50)
[2016-10-12] MEDS: ULTRAM 50 MG PO SCH ×2 (08:04→21:50)
[2016-10-12] MEDS: Miralax Powder 17GM PACKET PO SCH (08:05)
[2016-10-12] MEDS: Levofloxacin 500MG/100ML D5W 100 ML IV SCH (08:05)
--- NOTE | 2016-10-12 08:47 | PCM.NOTE ---
Date and Time: 10/12/1644 Subjective Assessment: patient c/o persistent cough, hard to sleep last night or rest due to cough. feels very weak this morning. Objective Exam General Appearance: cachetic Skin Exam: normal color, warm, dry Respiratory Exam: diminished breath sounds, prolonged expirations Cardiovascular Exam: regular rate/rhythm, normal heart sounds Gastrointestinal/Abdomen Exam: soft, No tenderness, No mass OBJECTIVE DATA Vital Signs: Vital Signs - 24 hr Temp Pulse Resp BP Pulse Ox 10/12/16 08:00 99 F 100 H 18 105/56 91 L 10/12/16 07:07 103 H 22 94 L 10/12/16 04:00 98.5 F 98 H 22 133/65 88 L 10/12/16 03:47 105 H 22 92 L 10/12/16 00:00 98.4 F 83 22 104/58 93 L 10/11/16 23:40 89 18 94 L 10/11/16 20:11 86 18 96 10/11/16 20:00 98.2 F 97 H 18 95/56 94 L 10/11/16 16:00 18 10/11/16 15:58 98.1 F 93 H 18 94/54 96 10/11/16 14:00 92 H 20 97 10/11/16 12:00 98.1 F 101 H 18 126/69 94 L 10/11/16 10:41 107 H 20 91 L Oxygen-Last 24 hours O2 Percentage 5 Liters = 40% O2 Percentage 5 Liters = 40% O2 Percentage 4 Liters = 36% O2 Percentage 4 Liters = 36% O2 Percentage 4 Liters = 36% Pain Assessment - Last Documented Pain Intensity 0 Pain Scale Used 0-10 Pain Scale Intake and Output: Intake & Output 10/09/16 10/10/16 10/11/16 10/12/16 11:59 11:59 11:59 11:59 Intake Total 3697 3656 1380 1543 Output Total 1660 2750 120 2250 Balance 2037 906 1260 -707 Weight 62.686 kg 62.505 kg 57.697 kg 55.338 kg Lab Results: Accuchecks Date 10/11/16 Date 10/11/16 Date 10/11/16 Time 22:00 Time 16:30 Time 11:37 Accucheck Value: 222 Accucheck Value: 211 Accucheck Value: 167 Lab Results-Last 24 Hours 10/11/16 10/12/16 10/12/16 Range/Units 09:20 05:17 05:17 WBC 13.4 H 17.6 H (4.0-10.5) K/mm3 RBC 3.41 L 3.37 L (4.1-5.6) M/mm3 Hgb 9.6 L 9.4 L (12.5-18.0) gm/dl Hct 31.1 L 30.9 L (42-50) % MCV 91.2 91.7 (78-100) fl MCH 28.1 27.8 (26-32) pg MCHC 30.9 L 30.4 L (32-36) g/dl RDW 17.8 H 18.5 H (11.5-14.0) % Plt Count 505 H 530 H (150-450) K/mm3 MPV 7.9 7.8 (6-9.5) fl Segmented Neutrophils 83 H (36.-66.) % Lymphocytes (Manual) 17 L (24-44) % Differential Comment ABNORMAL Platelet Estimate INCREASED (NORMAL) Polychromasia 1+ Poikilocytosis 1+ Anisocytosis 1+ Schistocytes 1+ Sodium 143 (136-145) mEq/L Potassium 3.7 (3.5-5.1) mEq/L Chloride 104 (98-107) mEq/L Carbon Dioxide 33.9 H (21-32) mEq/L Anion Gap 8.8 (5-15) MEQ/L BUN 13 (9-20) mg/dL Creatinine 0.80 (0.55-1.30) mg/dl Estimated GFR > 60 ML/MIN Glucose 146 H (70-110) MG/DL Calcium 8.7 (8.5-10.1) mg/dL Multi-Disciplinary Progress Notes: Multi-Disciplinary Progress Notes 10/11/16 20:22 Respiratory Note by Reg Herndon [address] AND [place] GIVEN SLIGHTLY LATE DUE TO RT IN THE ER. Initialized on 10/11/16 20:22 - END OF NOTE 10/11/16 10:15 (created 10/11/16 15:04) Case Management Note by Justa Moore SPOKE WITH PT AND SON, PAPI. PLANNING TO DISCHARGE TO HOME WITH [facility] TO RESUME. DECLINED ADDNL NEEDS. WILL CALL [facility] ON DISCHARGE. Initialized on 10/11/16 15:04 - END OF NOTE 10/11/16 09:00 (created 10/11/16 15:08) Case Management Note by Justa Moore CALL TO SELMA TURPIN TO DISCUSS DISCHARGE NEEDS. LEFT VMAIL MESSAGE. Initialized on 10/11/16 15:08 - END OF NOTE Assessment/Plan (1) Pneumonia Current Visit: Yes Status: Acute Qualifiers: Pneumonia type: due to unspecified organism Laterality: left Lung location: lower lobe of lung Qualified Code(s): J18.1 - Lobar pneumonia, unspecified organism Assessment & Plan: continue current regimen, clinically breath sounds have improved. try prometh/ codeine cough syrup. hopefully can discharge tomorrow and return to hospice care for end-stage COPD. had a discussion with patient this am and he is agreeable to "give it another try" although he is somewhat unhappy with his hospice provider and responsiveness to his concerns etc. Code(s): J18.9 - PNEUMONIA, UNSPECIFIED ORGANISM (2) Acute exacerbation of chronic obstructive pulmonary disease Current Visit: No Status: Acute Code(s): J44.1 - CHRONIC OBSTRUCTIVE PULMONARY DISEASE W (ACUTE) EXACERBATION (3) Anemia Current Visit: Yes Status: Acute Qualifiers: Anemia type: unspecified type Qualified Code(s): D64.9 - Anemia, unspecified Code(s): D64.9 - ANEMIA, UNSPECIFIED
[2016-10-12] MEDS: PHENERGAN WITH CODEINE SYRUP PO PRN (10:34)
[2016-10-12] MEDS: DELTASONE 20 MG PO SCH (10:35)
[2016-10-12] MEDS: ANASPAZ 0.125 MG PO PRN (10:36)
[2016-10-12] MEDS: NovoLOG Insulin SQ PRN ×2 (16:28→21:48)
[2016-10-12] MEDS: NORCO 5/325 MG PO PRN (21:48)
[2016-10-12] MEDS: xanAX 0.5 MG PO SCH (21:50)
[2016-10-13] MEDS: DUONEB 0.5-3 MG/3 ml Neb IH SCH ×6 (03:36→23:07)
[2016-10-13] MEDS: Advair Hfa 230/21 Mcg COMMON CANISTER IH SCH ×2 (06:45→18:36)
[2016-10-13] MEDS: Spiriva 18 Mcg/Cap Inhaler IH SCH (06:45)
--- NOTE | 2016-10-13 07:41 | PCM.NOTE ---
Date and Time: 10/13/16 0740 Subjective Assessment: patient continues to complain of cough, no other problems or concerns. Objective Exam General Appearance: no apparent distress, cachetic Skin Exam: normal color, warm, dry Respiratory Exam: diminished breath sounds, prolonged expirations Cardiovascular Exam: regular rate/rhythm, normal heart sounds Gastrointestinal/Abdomen Exam: soft, No tenderness, No mass Extremity Exam: normal inspection, normal range of motion OBJECTIVE DATA Vital Signs: Vital Signs - 24 hr Temp Pulse Resp BP Pulse Ox 10/13/16 07:29 98.6 F 81 23 137/72 93 L 10/13/16 04:00 98.1 F 75 20 112/60 96 10/13/16 03:38 75 20 96 10/13/16 00:00 97.9 F 82 20 104/61 98 10/12/16 23:54 82 20 98 10/12/16 20:00 98.5 F 87 20 98/55 96 10/12/16 18:58 87 18 96 10/12/16 16:00 98.3 F 93 H 20 84/51 94 L 10/12/16 15:09 95 H 20 93 L 10/12/16 11:32 98.5 F 96 H 20 97/52 95 10/12/16 10:49 96 H 20 95 10/12/16 08:00 99 F 100 H 18 105/56 91 L Oxygen-Last 24 hours O2 Percentage 5 Liters = 40% O2 Percentage 5 Liters = 40% O2 Percentage 5 Liters = 40% O2 Percentage 5 Liters = 40% O2 Percentage 5 Liters = 40% O2 Percentage 5 Liters = 40% O2 Percentage 5 Liters = 40% Pain Assessment - Last Documented Pain Intensity 0 Pain Scale Used 0-10 Pain Scale Intake and Output: Intake & Output 10/10/16 10/11/16 10/12/16 10/13/16 11:59 11:59 11:59 11:59 Intake Total 3656 1380 1543 1712 Output Total 2750 120 2250 1625 Balance 906 1260 -707 87 Weight 62.505 kg 57.697 kg 55.338 kg 55.792 kg Lab Results: Accuchecks Date 10/12/16 Date 10/12/16 Time 22:00 Time 21:30 Accucheck Value: 262 Accucheck Value: 262 Accucheck Value: 340 Accucheck Value: 197 Multi-Disciplinary Progress Notes: Multi-Disciplinary Progress Notes 10/12/16 14:21 Nutrition Note by Cheryl Huitron F/u Note: 1999 ADA diet con't with 25-100% po intake. Labs 10/12= glu 146 - improved; hgb 9.4, hct 30.9, neg fluid balance 300 mls. Weight 10/07 = 136.02# current weight 121.74#. Sending ensure 1 can tid with meals. goals not met and ongoing. Will con't to monitor and f/u prn. [email or web address] Huitron Initialized on 10/12/16 14:21 - END OF NOTE Assessment/Plan (1) Pneumonia Current Visit: Yes Status: Acute Qualifiers: Pneumonia type: due to unspecified organism Laterality: left Lung location: lower lobe of lung Qualified Code(s): J18.1 - Lobar pneumonia, unspecified organism Assessment & Plan: no fever, improved from an infectious standpoint. lungs are likely about as good as they are going to get, he is considering returning to home on hospice but is wanting to speak to someone about the services as he felt they were not quite as promised Code(s): J18.9 - PNEUMONIA, UNSPECIFIED ORGANISM (2) Acute exacerbation of chronic obstructive pulmonary disease Current Visit: No Status: Acute Code(s): J44.1 - CHRONIC OBSTRUCTIVE PULMONARY DISEASE W (ACUTE) EXACERBATION (3) Anemia Current Visit: Yes Status: Acute Qualifiers: Anemia type: unspecified type Qualified Code(s): D64.9 - Anemia, unspecified Code(s): D64.9 - ANEMIA, UNSPECIFIED
[2016-10-13] MEDS: PHENERGAN WITH CODEINE SYRUP PO PRN ×2 (07:57→21:33)
[2016-10-13] MEDS: Glucophage 500 MG PO SCH ×2 (07:58→16:11)
[2016-10-13] MEDS: Reglan 10 MG PO SCH ×4 (07:58→21:32)
[2016-10-13] MEDS: Miralax Powder 17GM PACKET PO SCH (09:30)
[2016-10-13] MEDS: ELIQUIS PO SCH ×2 (09:30→21:33)
[2016-10-13] MEDS: Vitamin C 500 MG PO SCH (09:31)
[2016-10-13] MEDS: DELTASONE 20 MG PO SCH (09:31)
[2016-10-13] MEDS: SENOKOT 8.6 MG PO SCH ×2 (09:31→21:33)
[2016-10-13] MEDS: ULTRAM 50 MG PO SCH ×2 (09:31→21:32)
[2016-10-13] MEDS: THERAGRAN MULTIVITAMIN PO SCH (09:31)
[2016-10-13] MEDS: Levofloxacin 500MG/100ML D5W 100 ML IV SCH (09:31)
[2016-10-13] MEDS: Protonix 40MG Tablet PO SCH (09:31)
[2016-10-13] MEDS: ANASPAZ 0.125 MG PO PRN (09:32)
[2016-10-13] MEDS: NovoLOG Insulin SQ PRN ×2 (11:22→16:11)
[2016-10-13] MEDS: Sodium Chloride 0.9% 1000 ML 1,000 ML IV SCH ×2 (14:43→22:20)
[2016-10-13] MEDS ORDERED: PHENERGAN WITH CODEINE SYRUP ONE (21:09)
[2016-10-13] MEDS: xanAX 0.5 MG PO SCH (21:32)
[2016-10-13] MEDS: NORCO 5/325 MG PO PRN (21:32)
[2016-10-14] MEDS: DUONEB 0.5-3 MG/3 ml Neb IH SCH ×3 (03:08→10:40)
[2016-10-14] MEDS: Sodium Chloride 0.9% 1000 ML 1,000 ML IV SCH (05:58)
[2016-10-14] MEDS: Ativan 0.5 MG PO PRN (06:00)
[2016-10-14] MEDS: Advair Hfa 230/21 Mcg COMMON CANISTER IH SCH (06:07)
[2016-10-14] MEDS: Spiriva 18 Mcg/Cap Inhaler IH SCH (06:08)
[2016-10-14] MEDS ORDERED: PROVENTIL 2.5 MG/3 ML NEB IH PRN (06:19)
[2016-10-14] MEDS: Tessalon Perles 100 MG PO PRN ×2 (06:28→10:06)
[2016-10-14 07:44] VITALS: BP 136/73; PULSE 96; O2SAT 93
[2016-10-14] MEDS: Protonix 40MG Tablet PO SCH (08:07)
[2016-10-14] MEDS: Glucophage 500 MG PO SCH (08:07)
[2016-10-14] MEDS: Vitamin C 500 MG PO SCH (08:08)
[2016-10-14] MEDS: THERAGRAN MULTIVITAMIN PO SCH (08:08)
[2016-10-14] MEDS: ELIQUIS PO SCH (08:08)
[2016-10-14] MEDS: ANASPAZ 0.125 MG PO PRN (08:09)
[2016-10-14] MEDS: ULTRAM 50 MG PO SCH (08:09)
[2016-10-14] MEDS: DELTASONE 20 MG PO SCH (08:09)
[2016-10-14] MEDS: SENOKOT 8.6 MG PO SCH (08:09)
[2016-10-14] MEDS: Reglan 10 MG PO SCH (08:10)
[2016-10-14] MEDS: Miralax Powder 17GM PACKET PO SCH (08:10)
[2016-10-14] MEDS: Levofloxacin 500MG/100ML D5W 100 ML IV SCH (08:10)
--- NOTE | 2016-10-14 08:17 | PCM.DS ---
Discharge Summary Date of Admission: 10/05/16 12:53 Admitting Physician: IBETH JAEGER Primary Care Provider: IBETH JAEGER Allergies Allergies No Known Drug Allergies Allergy (Verified 10/05/16 10:40) Hospital Summary - Hospital Course Hospital Course: patient with end-stage copd, admitted with pneumonia, was on hospice prior to admission. he persists with cough - Vitals & Intake/Output Vital Signs: Vital Signs Temperature 98.3 F 10/14/16 07:43 Pulse Rate 96 H 10/14/16 07:43 Respiratory Rate 22 10/14/16 07:43 Blood Pressure 136/73 10/14/16 07:43 O2 Sat by Pulse Oximetry 93 L 10/14/16 07:43 Oxygen-Last Documented O2 Percentage 4 Liters = 36% Intake & Output: Intake & Output 10/11/16 10/12/16 10/13/16 10/14/16 11:59 11:59 11:59 11:59 Intake Total 1380 1543 1712 2578 Output Total 120 2250 2150 1425 Balance 4370 -707 -945 1153 Weight 57.697 kg 55.338 kg 55.792 kg 58.74 kg - Lab Result Diagrams: 10/12/16 05:17 10/12/16 05:17 Lab Results-Last 24 Hrs: Accuchecks Date 10/14/16 Date 10/13/16 Date 10/13/16 Date 10/13/16 Time 07:30 Time 22:00 Time 16:30 Time 11:30 Accucheck Value: 137 Accucheck Value: 167 Accucheck Value: 291 Accucheck Value: 238 Micro Results-Entire Visit: Accuchecks Date 10/14/1610/13/16 Date 10/13/1610/13/16 Time 07:30 Time 22:00 Time 16:30 Time 11:30 Accucheck Value: 137 Accucheck Value: 167 Accucheck Value: 291 Accucheck Value: 238 - Procedures and Test Procedures and Tests throughout Hospitalization: Therapy Orders & Screens 10/05/16 15:00 Respiratory Nebulizer Q4H Comment: DUONEB Q4 Diagnosis: exac copd 10/05/16 19:00 Respiratory MDI BID Comment: ADVAIR 230/21 BID Diagnosis: exac copd 10/06/16 07:00 Respiratory MDI UD Comment: SPIRIVA DAILY Diagnosis: exac copd 10/11/16 04:22 Respiratory Nebulizer UD Comment: DUONEB Q2PRN Diagnosis: exac copd Discharge Exam General Appearance: no apparent distress, alert Respiratory Exam: normal breath sounds, lungs clear, No respiratory distress Cardiovascular Exam: regular rate/rhythm, normal heart sounds Gastrointestinal/Abdomen Exam: soft, No tenderness, No mass Extremity Exam: normal inspection, normal range of motion Final Diagnosis/Problem List - Final Discharge Diagnosis/Problem (1) Pneumonia Current Visit: Yes Status: Acute Assessment & Plan: home on regular meds, has completed enough of a course (2) Acute exacerbation of chronic obstructive pulmonary disease Current Visit: No Status: Acute (3) Anemia Current Visit: Yes Status: Acute - Discharge Disposition: HOME HEALTH SERVICE Condition: Poor Prescriptions: New Benzonatate [Tessalon Perle] 100 mg PO TID PRN #30 capsule Continue Tramadol HCl 50 mg [Ultram 50 mg] 50 mg PO BID Tiotropium [place] Inhaler [Spiriva 18 Mcg/Cap Inhaler] 2 ea IH DAILY Sennosides [Senna] 8.6 mg PO BID Albuterol Sulfate [Proair Hfa] 2 puff IH Q4HWA Omeprazole 20 MG [Prilosec 20 mg] 20 mg PO DAILY Prednisone 20 mg [Deltasone 20 mg] 20 mg PO DAILY Polyethylene Glycol 3350 17 gm [Miralax Powder 17GM PACKET] 17 gm PO DAILY Metformin HCl 500 mg [Glucophage 500 MG] 500 mg PO BID Hyoscyamine Sulfate 0.125 mg [Anaspaz 0.125 mg] 0.125 mg PO Q4HWA PRN PRN Reason: secretions Haloperidol Lactate [Haloperidol] 0.5 ml PO Q6HPRN PRN PRN Reason: Agitation Glipizide 5 mg [Glucotrol 5 MG] 5 mg PO BID Guaifenesin/Codeine Phosphate [Cheratussin AC Syrup] 5 ml PO DAILY PRN PRN PRN Reason: Cough Apixaban [Eliquis] 5 mg PO BID Bisacodyl 10 mg RC DAILY PRN PRN PRN Reason: Constipation Alprazolam 0.5 mg PO HS Fluticasone/Salmeterol [Advair 250-50 Diskus] 2 each IH BID Ascorbic Acid [Vitamin C] 250 mg PO DAILY Hydrocodone/Acetaminophen [[place]ie 5-325 Tablet] 1 each PO TID PRN PRN Reason: Pain Multivitamin [Multivitamins] 1 each PO DAILY Lorazepam 0.5 mg [Ativan 0.5 MG] 0.5 mg PO UD PRN PRN Reason: Anxiety Lorazepam [Lorazepam Intensol] 0.5 mg PO UD PRN PRN Reason: Agitation Ipratropium/Albuterol Sulfate [Iprat-Albut 0.5-3(2.5) mg/3 ml] 3 ml IH Q4H Prochlorperazine Maleate 10 mg [Compazine 10 mg] 10 mg PO Q6HPRN PRN PRN Reason: n/v Instructions: Chronic Obstructive Pulmonary Disease Follow up with: IBETH JAEGER MD [Primary Care Provider] - Forms: Patient Portal Information
[2016-10-14] MEDS: NORCO 5/325 MG PO PRN (10:07)
== END 2016-10-14 11:50 | disposition home health service (06) | DRG 194 ==
LOC: ED 10:27 → OBSVTOIN 12:53 → MED SURG 12:53
PROVIDERS: ADMIT Family Medicine; ATTEND Family Medicine
DX: J18.1 Lobar pneumonia, unspecified organism (principal); J44.1 Chronic obstructive pulmonary disease with (acute) exacerbation; D64.9 Anemia, unspecified; E11.65 Type 2 diabetes mellitus with hyperglycemia; Z86.718 Personal history of other venous thrombosis and embolism; J60 Coalworker's pneumoconiosis; Z90.2 Acquired absence of lung [part of]; Z87.891 Personal history of nicotine dependence; F41.9 Anxiety disorder, unspecified; K59.00 Constipation, unspecified; Z79.01 Long term (current) use of anticoagulants; Z79.4 Long term (current) use of insulin; Z79.899 Other long term (current) drug therapy
CPT/HCPCS: 36415; 36600; 71010; 80048; 80053; 82375; 82803; 82805; 82962; 83880; 84484; 85025; 85027; 87040; 93005; 93041; 94640; 94760; 96360; 96365; 99285; J0696; J1956; J2405; J2930; A9270-GY; J7506

== ENCOUNTER 2016-12-19 03:38 | Inpatient (IN) | payer BLACK LUNG, MEDICARE ==
[2016-12-19] MEDS ORDERED: Sodium Chloride 0.9% 1000 ML 1,000 ML IV SCH (03:45)
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
[2016-12-19 04:03] LABS: Lactic Acid 2.3 (0.4-2.0)
[2016-12-19 04:04] LABS: A-aADO2 590; ARTERIAL BLD GAS O2 SATURATION 97.1 % (95-100); ARTERIAL BLOOD GAS BASE EXCESS 1.7 (-2.0-2.0); ARTERIAL BLOOD GAS FIO2 100 %; ARTERIAL BLOOD GAS PO2 77 mmHg (75-100); ARTERIAL BLOOD GAS pH 7.45 (7.35-7.45); BIPAP(E) 6; BIPAP(I) 12
[2016-12-19 04:05] LABS: ALLEN TEST OK? NO
[2016-12-19 04:05] LABS: Mean Cell Volume 88.7 fl (78-100); Mean Platelet Volume 7.8 fl (6-9.5); Platelet Count 632 K/mm3 (150-450); Red Cell Distribution Width 16.4 % (11.5-14.0)
[2016-12-19] MEDS ORDERED: Zosyn 3.375GM/100 Ml D5W 3.375 GM/100 ML IVPB IV STA (04:10)
[2016-12-19] MEDS ORDERED: Lasix 40 MG/4 ML IV ONE (04:16)
[2016-12-19] MEDS ORDERED: FEVERALL 650 MG ONE (04:22)
[2016-12-19] MEDS ORDERED: FEVERALL 650 MG PR ONE (04:22)
[2016-12-19] MEDS ORDERED: Sodium Chloride 0.9% 1000 ML 1,000 ML ONE ×2 (04:25→05:34)
[2016-12-19] MEDS ORDERED: Zosyn 3.375GM/100 Ml D5W 3.375 GM/100 ML IVPB IV ONE (04:25)
[2016-12-19 04:28] LABS: Mean Corpuscular Hemoglobin 27.1 pg (26-32)
[2016-12-19 04:35] LABS: ALBUMIN 2.2 g/dL (3.4-5.0); ALKALINE PHOSPHATASE 88 U/L (46-116); ANION GAP 14.7 MEQ/L (5-15); BLOOD UREA NITROGEN 17 mg/dL (9-20); CHLORIDE 103 mEq/L (98-107); Carbon Dioxide 25.2 mEq/L (21-32); Glucose 268 MG/DL (70-110); Potassium 4.3 mEq/L (3.5-5.1); SGOT/AST 20 U/L (15-37); SGPT/ALT 11 U/L (12-78); SODIUM 139 mEq/L (136-145); Total Protein 6.9 gm/dL (6.4-8.2)
[2016-12-19] MEDS ORDERED: XYLOCAINE 2% Uro-Jet ONE (04:38)
[2016-12-19 04:40] LABS: TROPONIN < 0.017 ng/ml (0.000-0.056)
[2016-12-19 04:41] LABS: INR 1.15 (0.8-3.0)
[2016-12-19 04:44] LABS: PTT 28.4 SECONDS (24.1-36.1)
[2016-12-19] MEDS ORDERED: Vancomycin 1GM/ Ns 250ML*** 250 ML IV ONE ×2 (04:58→05:34)
[2016-12-19 05:01] LABS: ADD URINE CULTURE? NO (NO); Bilirubin NEGATIVE (NEGATIVE); Blood 50 Ery/ul (0-5); COMPLETE URINE MICROSCOPIC? YES; Collection Type CATH; Glucose NEGATIVE (NEGATIVE); Leukocyte Esterase NEGATIVE (NEGATIVE)
[2016-12-19] MEDS ORDERED: XYLOCAINE 2% Uro-Jet TOP ONE (05:23)
[2016-12-19] MEDS ORDERED: Sodium Chloride 0.9% 1000 ML 1,000 ML IV STA (05:34)
[2016-12-19] MEDS ORDERED: DUONEB 0.5-3 MG/3 ml Neb IH ONE (07:18)
[2016-12-19 07:20] LABS: ANISOCYTOSIS 1+; ATYPICAL LYMPHS 1 %; Eosinophil 2 % (0.00-3.0); Platelet Estimate INCREASED (NORMAL); Total Cells Counted 100; Toxic Granulation 1+
[2016-12-19] MEDS: DUONEB 0.5-3 MG/3 ml Neb IH SCH ×5 (07:20→22:52)
[2016-12-19] MEDS: Advair Hfa 230/21 Mcg COMMON CANISTER IH SCH ×2 (07:20→18:56)
[2016-12-19] MEDS ORDERED: PHARMACY DOSING REQUIRED: VANCOMYCIN IV ONE (07:28)
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
--- NOTE | 2016-12-19 09:41 | XRAY ---
Exam: AP portable chest film from 0345 hours on 12/19/2016. Comparison: AP upright portable chest film from 10/05/2016. Indication: Shortness of breath, respiratory distress. Findings: The transverse heart size is normal. There is some straightening of the left cardiac border suggestive of an element of left lower lobe atelectasis. However, there is a large focal dense air space infiltrate within the peripheral left upper to midlung zone which is new from 10/05/2016. This is suggestive of pneumonia. Less pronounced patchy bibasilar airspace disease is again seen which appears similar to 10/05/2016. There also mild bibasilar pleural effusions, left greater than right. The effusion on the left is mildly increased from 10/05/2016, and the effusion on the right appears about the same. There is hyperinflation of the lungs consistent with COPD. No pneumothorax or significant central vascular congestion is seen. The visualized bones appear grossly intact. Overlying external artifactual densities are seen within the right upper chest. Impression: 1. New moderately large, dense air space infiltrate within peripheral left upper to midlung zone consistent with pneumonia. This should be followed to document complete resolution, as underlying mass lesion cannot be excluded or confirmed based on this appearance. 2. Mild left basilar pleural effusion has increased slightly as compared to 10/05/2016. Minimal right basilar pleural fluid appears about the same as 10/05/2016. 3. I also note some left lower lobe atelectasis manifested by straightening of the left cardiac border. Other mild patchy bibasilar airspace disease appears similar to 10/05/2016. Only the left lung apex and right upper lung field remain relatively clear. 4. There is some hyperinflation of the lungs suggestive of COPD.
[2016-12-19] MEDS: Sodium Chloride 0.9% 1000 ML 1,000 ML IV SCH ×2 (11:00→20:38)
[2016-12-19] MEDS ORDERED: FEVERALL 650 MG RC PRN (12:21)
[2016-12-19] MEDS ORDERED: LORAZEPAM 0.5 MG PO PRN (12:21)
[2016-12-19] MEDS ORDERED: Dulcolax 10 MG SUPP RC PRN (12:21)
[2016-12-19] MEDS ORDERED: HALOPERIDOL LACTATE PO PRN (12:21)
[2016-12-19] MEDS ORDERED: Miralax Powder 17GM PACKET PO PRN (12:21)
[2016-12-19] MEDS ORDERED: ULTRAM 50 MG PO PRN (12:21)
[2016-12-19] MEDS ORDERED: NON-FORMULARY ITEM (Prochlorperazine Maleate 10 Mg [Compazine 10 Mg] 10 MG) PO PRN (12:21)
[2016-12-19] MEDS ORDERED: CODEINE PHOSPHATE PO PRN (12:21)
[2016-12-19] MEDS ORDERED: GUAIFENESIN PO PRN (12:21)
[2016-12-19] MEDS ORDERED: Robitussin AC Syrup Unit Dose Cup PO PRN (12:32)
[2016-12-19] MEDS: Zosyn 3.375GM/100 Ml D5W 3.375 GM/100 ML IVPB IV SCH ×3 (12:33→23:15)
[2016-12-19] MEDS ORDERED: Compazine 5 MG PO PRN (12:33)
[2016-12-19] MEDS: SENOKOT 8.6 MG PO SCH ×2 (12:46→22:21)
[2016-12-19] MEDS: Protonix 40MG Tablet PO SCH (12:46)
[2016-12-19] MEDS: ELIQUIS PO SCH ×2 (12:49→22:37)
[2016-12-19] MEDS ORDERED: HALDOL 1 MG PO PRN (12:56)
[2016-12-19] MEDS: Glucophage 500 MG PO SCH (16:51)
[2016-12-19] MEDS: NovoLOG Insulin SQ PRN ×2 (16:51→22:22)
[2016-12-19] MEDS: VANCOCIN 500 MG VIAL*** 500 MG in Sodium Chloride 100ML MINI-BAG PLUS 100 ML IV SCH (20:20)
[2016-12-19] MEDS: NORCO 5/325 MG PO PRN (22:20)
[2016-12-19] MEDS: xanAX 0.5 MG PO SCH (22:21)
[2016-12-20] MEDS: DUONEB 0.5-3 MG/3 ml Neb IH SCH ×6 (03:29→23:43)
[2016-12-20] MEDS: Zosyn 3.375GM/100 Ml D5W 3.375 GM/100 ML IVPB IV SCH ×4 (05:40→23:29)
[2016-12-20] MEDS: Advair Hfa 230/21 Mcg COMMON CANISTER IH SCH ×2 (07:06→19:17)
[2016-12-20 07:11] LABS: Mean Cell Volume 90.5 fl (78-100); Mean Platelet Volume 7.9 fl (6-9.5); Platelet Count 423 K/mm3 (150-450); Red Blood Count 2.95 M/mm3 (4.1-5.6); Red Cell Distribution Width 16.5 % (11.5-14.0)
[2016-12-20 07:17] LABS: Mean Corpuscular Hemoglobin 27.4 pg (26-32)
--- NOTE | 2016-12-20 07:26 | PCM.NOTE ---
Date and Time: 12/20/16720 Subjective Assessment: Pt is feeling better. Afebrile since yesterday. Lucero po well. - Review of Systems Constitutional: No Fever Respiratory: Cough Objective Exam General Appearance: no apparent distress Neurologic Exam: alert, oriented x 3, cooperative Skin Exam: normal color, warm, dry Respiratory Exam: rhonchi (throughout on L), other (good air exchange on R, no wheezing) Cardiovascular Exam: regular rate/rhythm, normal heart sounds (distant), No murmur Extremity Exam: No pedal edema, No swelling OBJECTIVE DATA Vital Signs: Vital Signs - 24 hr Temp Pulse Resp BP Pulse Ox 12/20/16 07:07 78 18 97 12/20/16 03:54 97.9 F 93 H 17 128/61 93 L 12/20/16 03:40 97.9 F 83 21 12/20/16 03:31 95 H 19 96 12/20/16 02:00 98.2 F 81 19 129/70 94 L 12/20/16 00:00 84 12/19/16 22:55 86 19 95 12/19/16 22:00 98.2 F 76 20 98 12/19/16 21:00 98.2 F 72 20 98 12/19/16 20:00 98.2 F 83 23 123/64 95 12/19/16 19:00 85 20 96 12/19/16 16:00 98.2 F 77 18 130/71 97 12/19/16 15:06 74 20 96 12/19/16 12:00 98.2 F 97 H 25 H 100/61 93 L 12/19/16 11:04 78 24 98 12/19/16 09:36 99.1 F 85 23 106/66 94 L 12/19/16 07:42 90 22 93 L Oxygen-Last 24 hours O2 Percentage 4 Liters = 36% O2 Percentage 4 Liters = 36% O2 Percentage 50% O2 Percentage 5 Liters = 40% O2 Percentage 5 Liters = 40% O2 Percentage 5 Liters = 40% O2 Percentage 5 Liters = 40% O2 Percentage 5 Liters = 40% Pain Assessment - Last Documented Pain Intensity 0 Pain Scale Used 0-10 Pain Scale Intake and Output: Intake & Output 12/17/16 12/18/16 12/19/16 12/20/16 11:59 11:59 11:59 11:59 Intake Total 3636 Output Total 1780 Balance 1856 Weight 58.2 kg 61 kg Lab Results: Accuchecks Date 12/19/16 Time 22:00 Accucheck Value: 250 Accucheck Value: 300 Accucheck Value: 191 Lab Results-Last 24 Hours 12/20/16 Range/Units 05:45 WBC 17.0 H (4.0-10.5) K/mm3 RBC 2.95 L (4.1-5.6) M/mm3 Hgb 8.1 L (12.5-18.0) gm/dl Hct 26.7 L (42-50) % MCV 90.5 (78-100) fl MCH 27.4 (26-32) pg MCHC 30.3 L (32-36) g/dl RDW 16.5 H (11.5-14.0) % Plt Count 423 (150-450) K/mm3 MPV 7.9 (6-9.5) fl Assessment/Plan (1) Pneumonia Current Visit: Yes Status: Acute Qualifiers: Pneumonia type: due to unspecified organism Laterality: bilateral Lung location: lower lobe of lung Qualified Code(s): J18.9 - Pneumonia, unspecified organism Assessment & Plan: On IV vancomycin and zosyn. Much improved since admission. Will transfer from ICU to med surg bed today. Code(s): J18.9 - PNEUMONIA, UNSPECIFIED ORGANISM (2) Sepsis Current Visit: Yes Status: Resolved Qualifiers: Sepsis type: sepsis due to unspecified organism Qualified Code(s): A41.9 - Sepsis, unspecified organism Assessment & Plan: Vitals improved. CBC improved from 34 to 17 this morning. Blood pressure normal today. (3) CHF (congestive heart failure) Current Visit: No Status: Chronic Qualifiers: Congestive heart failure type: unspecified congestive heart failure type Congestive heart failure chronicity: unspecified congestive heart failure chronicity Qualified Code(s): I50.9 - Heart failure, unspecified Assessment & Plan: Pt has been hydrated carefully, appears stable at this time. Code(s): I50.9 - HEART FAILURE, UNSPECIFIED (4) Chronic hypoxemic respiratory failure Current Visit: No Status: Chronic (5) End stage COPD Current Visit: No Status: Chronic Assessment & Plan: Apparently there is an issue with hospice since he was admitted to the hospital. Code(s): J44.9 - CHRONIC OBSTRUCTIVE PULMONARY DISEASE, UNSPECIFIED
[2016-12-20 07:46] LABS: ALBUMIN 1.6 g/dL (3.4-5.0); ALKALINE PHOSPHATASE 54 U/L (46-116); ANION GAP 10.8 MEQ/L (5-15); BLOOD UREA NITROGEN 14 mg/dL (9-20); CHLORIDE 109 mEq/L (98-107); Carbon Dioxide 27.1 mEq/L (21-32); Glucose 169 MG/DL (70-110); Potassium 3.5 mEq/L (3.5-5.1); SGOT/AST 6 U/L (15-37); SODIUM 143 mEq/L (136-145); Total Protein 5.3 gm/dL (6.4-8.2)
[2016-12-20 07:51] LABS: SGPT/ALT < 6 U/L (12-78)
[2016-12-20] MEDS: Glucophage 500 MG PO SCH ×2 (07:51→17:09)
[2016-12-20] MEDS: VANCOCIN 500 MG VIAL*** 500 MG in Sodium Chloride 100ML MINI-BAG PLUS 100 ML IV SCH ×2 (07:51→21:21)
[2016-12-20 08:03] LABS: Total Cells Counted 100
[2016-12-20 08:06] LABS: ANISOCYTOSIS 1+; Platelet Estimate NORMAL (NORMAL); Poikilocytosis 1+
[2016-12-20] MEDS: Sodium Chloride 0.9% 1000 ML 1,000 ML IV SCH ×2 (08:55→19:56)
[2016-12-20] MEDS: Protonix 40MG Tablet PO SCH (08:55)
[2016-12-20] MEDS: SENOKOT 8.6 MG PO SCH ×2 (08:55→21:18)
[2016-12-20] MEDS: ELIQUIS PO SCH ×2 (08:55→21:18)
[2016-12-20] MEDS ORDERED: NON-FORMULARY ITEM (Omeprazole 20 Mg [Prilosec 20 Mg] 20 MG) PO SCH (10:00)
[2016-12-20] MEDS: Ativan 0.5 MG PO PRN ×2 (11:31→13:01)
[2016-12-20] MEDS: DUONEB 0.5-3 MG/3 ml Neb IH PRN ×2 (12:45→17:06)
[2016-12-20 15:37] LABS: A-aADO2 419; ARTERIAL BLOOD GAS BASE EXCESS 2.3 (-2.0-2.0); ARTERIAL BLOOD GAS FIO2 80 %; ARTERIAL BLOOD GAS PO2 104 mmHg (75-100); ARTERIAL BLOOD GAS pH 7.45 (7.35-7.45)
[2016-12-20 15:38] LABS: ALLEN TEST OK? NO
--- NOTE | 2016-12-20 17:02 | XRAY ---
Exam: AP upright portable chest film from 1557 hrs. on 12/20/2016. Comparison: AP portable chest films from 12/19/2016 and 10/05/2016. Indication: Increasing shortness of breath. Findings: I again see a prominent dense airspace consolidation within the left mid to upper lung field which I believe is slightly larger as compared to 12/19/2016. This is consistent with worsening pneumonia. The transverse heart size is normal. There is increased density behind the heart with straightening of the left cardiac border suggestive of concomitant left lower lobe atelectasis. Some concomitant pneumonic infiltrate cannot be excluded. At least mild bibasilar pleural effusions are seen. This has increased on the right as compared to 12/19/2016. The left pleural effusion is about the same. Mild mixed interstitial/airspace disease is seen within the right midlung zone and central right lung base which is apparently chronic and represents no significant change. There is hyperinflation of the lungs consistent with COPD. No pneumothorax is seen. No acute osseous process is seen. I believe there are mild arthritic changes within both shoulders. Impression: 1. Previously noted dense airspace consolidation within the left mid to upper lung field appears slightly larger representing an unfavorable change. This is consistent with pneumonia. 2. Also, there is increased radiodensity behind the heart with straightening of the left cardiac border suggestive of left lower lobe atelectasis. Concomitant pneumonic infiltrate at this level cannot be excluded. I believe this also is slightly more pronounced (i.e. increased radiodensity) as compared to 12/19/2016. 3. There are at least mild bibasilar pleural effusions. The effusion on the right appears slightly larger, but the effusion on the left appears about the same. 4. COPD with some chronic mixed interstitial/airspace disease within the right midlung zone and central right lung base.
[2016-12-20] MEDS ORDERED: Lasix 20 MG/2 ML IV ONE (17:30)
[2016-12-20] MEDS: TYLENOL 325 MG PO PRN (19:55)
[2016-12-20] MEDS: xanAX 0.5 MG PO SCH (21:18)
[2016-12-21] MEDS: DUONEB 0.5-3 MG/3 ml Neb IH SCH ×6 (03:22→22:44)
[2016-12-21] MEDS: Advair Hfa 230/21 Mcg COMMON CANISTER IH SCH ×2 (06:14→19:23)
[2016-12-21] MEDS: Ativan 0.5 MG PO PRN (06:20)
[2016-12-21] MEDS: Zosyn 3.375GM/100 Ml D5W 3.375 GM/100 ML IVPB IV SCH ×3 (06:22→19:32)
[2016-12-21] MEDS ORDERED: TROUGH DRUG LEVELS IJ ONE (07:30)
[2016-12-21] MEDS: Glucophage 500 MG PO SCH ×2 (08:03→17:51)
[2016-12-21] MEDS: VANCOCIN 500 MG VIAL*** 500 MG in Sodium Chloride 100ML MINI-BAG PLUS 100 ML IV SCH (08:17)
--- NOTE | 2016-12-21 08:59 | PCM.NOTE ---
Date and Time: 12/21/16 0857 Subjective Assessment: patient had significant problems with oxygenation last night, has been upset and anxious at times. Objective Exam General Appearance: mild distress Respiratory Exam: crackles/rales, rhonchi Cardiovascular Exam: regular rate/rhythm, normal heart sounds Gastrointestinal/Abdomen Exam: soft, No tenderness, No mass Extremity Exam: normal inspection, normal range of motion OBJECTIVE DATA Vital Signs: Vital Signs - 24 hr Temp Pulse Resp BP Pulse Ox 12/21/16 08:16 95 12/21/16 07:00 98.9 F 115 H 35 H 102/58 95 12/21/16 06:14 94 H 24 93 L 12/21/16 03:23 87 22 92 L 12/21/16 03:04 97.6 F 12/20/16 23:58 98.2 F 90 22 96/60 98 12/20/16 23:45 112 H 24 88 L 12/20/16 19:40 101.2 F 115 H 26 H 110/71 95 12/20/16 19:21 80 31 H 97 12/20/16 17:09 100 H 40 H 12/20/16 16:00 98.9 F 130 H 36 H 116/76 95 12/20/16 15:45 100 H 40 H 92 L 12/20/16 12:45 140 H 32 H 70 L 12/20/16 12:00 98.3 F 91 H 20 131/68 93 L 12/20/16 11:16 100 H 20 Oxygen-Last 24 hours O2 Percentage 4 Liters = 36% Pain Assessment - Last Documented Pain Intensity 0 Pain Scale Used 0-10 Pain Scale Intake and Output: Intake & Output 12/18/16 12/19/16 12/20/16 12/21/16 11:59 11:59 11:59 11:59 Intake Total 3636 1374 Output Total 1780 3600 Balance 1856 -2226 Weight 58.2 kg 61 kg Lab Results: Accuchecks Date 12/20/16 Time 22:00 Accucheck Value: 164 Accucheck Value: 163 Accucheck Value: 164 Accucheck Value: 146 Lab Results-Last 24 Hours 12/20/16 12/20/16 12/21/16 Range/Units 15:24 18:03 07:35 Puncture Site RIGHT BRACHIAL pCO2 38 (35-45) mmHg pO2 104 H (75-100) mmHg Base Excess 2.3 H (-2.0-2.0) O2 Saturation 97.0 (94-100) g/dF ABG pH 7.45 (7.35-7.45) ABG HCO3 26.4 (22-28) ABG O2 Sat (Measured) 99.0 (95-100) % Donato Test NO A-a Gradient 419 a/A Ratio 0.20 Hemoglobin 10.0 Carboxyhemoglobin 1.2 (0.0-6.9) % THgb Methemoglobin 0.8 L (1.4-1.5) % Potassium 3.7 (3.5-5.1) Temperature 37.0 C POC O2 Flow Rate 80 % Vent Mode BiPAP Lactic Acid 1.4 (0.4-2.0) Vancomycin Trough 7.6 L (10-20) UG/ML Radiology Exams: Radiology Procedures Category Date Time Status CHEST 1 VIEW (PORTABLE) Stat Exams 12/20/16 15:46 Completed Assessment/Plan (1) Sepsis Current Visit: Yes Status: Resolved Qualifiers: Sepsis type: sepsis due to unspecified organism Qualified Code(s): A41.9 - Sepsis, unspecified organism (2) Pneumonia Current Visit: Yes Status: Acute Qualifiers: Pneumonia type: due to unspecified organism Laterality: bilateral Lung location: lower lobe of lung Qualified Code(s): J18.9 - Pneumonia, unspecified organism Assessment & Plan: continue vanc and zosyn Code(s): J18.9 - PNEUMONIA, UNSPECIFIED ORGANISM (3) COPD (chronic obstructive pulmonary disease) Current Visit: No Status: Deleted Qualifiers: COPD type: emphysema Emphysema type: panlobular Qualified Code(s): J43.1 - Panlobular emphysema (4) Chronic hypoxemic respiratory failure Current Visit: No Status: Chronic (5) CHF (congestive heart failure) Current Visit: Yes Status: Acute Assessment & Plan: patient has mild acute on chronic systolic heart failure, will saline lock IV and add lasix 20mg IV q12 hrs. has almanza Code(s): I50.9 - HEART FAILURE, UNSPECIFIED
[2016-12-21] MEDS: SENOKOT 8.6 MG PO SCH ×2 (10:06→22:28)
[2016-12-21] MEDS: Protonix 40MG Tablet PO SCH (10:06)
[2016-12-21] MEDS: Klor Con 10 MEQ PO SCH (10:06)
[2016-12-21] MEDS: ELIQUIS PO SCH ×2 (10:07→22:28)
[2016-12-21] MEDS: Lasix 20 MG/2 ML IV SCH ×2 (10:07→17:52)
[2016-12-21] MEDS: TYLENOL 325 MG PO PRN (12:54)
[2016-12-21] MEDS: NovoLOG Insulin SQ PRN (13:40)
[2016-12-21] MEDS ORDERED: MOTRIN 600 MG PO PRN (14:19)
[2016-12-21] MEDS ORDERED: Lasix 20 MG/2 ML IV ONE (16:00)
[2016-12-21] MEDS: VANCOCIN 1 GM VIAL*** 0.75 GM in Sodium Chloride 0.9% 150 ML 150 ML IV SCH (22:28)
[2016-12-21] MEDS: xanAX 0.5 MG PO SCH (22:28)
[2016-12-21] MEDS: NORCO 5/325 MG PO PRN (22:42)
[2016-12-22] MEDS: DUONEB 0.5-3 MG/3 ml Neb IH SCH ×6 (02:50→23:26)
[2016-12-22] MEDS: Zosyn 3.375GM/100 Ml D5W 3.375 GM/100 ML IVPB IV SCH ×4 (05:22→17:13)
[2016-12-22] MEDS: Advair Hfa 230/21 Mcg COMMON CANISTER IH SCH ×2 (05:31→17:30)
[2016-12-22 05:51] LABS: BASOPHIL % 0.1 % (0.0-0.4); Eosinophil % 0.4 % (0.00-5.0); Granulocytes % 80.2 % (36.0-66.0); Lymphocytes % 13.8 % (24.0-44.0); Mean Cell Volume 89.3 fl (78-100); Mean Platelet Volume 8.6 fl (6-9.5); Monocytes % 5.5 % (0.0-12.0); Platelet Count 318 K/mm3 (150-450); Red Blood Count 3.46 M/mm3 (4.1-5.6); Red Cell Distribution Width 16.6 % (11.5-14.0); White Blood Count 17.1 K/mm3 (4.0-10.5)
[2016-12-22] MEDS: Ativan 0.5 MG PO PRN (05:55)
[2016-12-22] MEDS: VANCOCIN 1 GM VIAL*** 0.75 GM in Sodium Chloride 0.9% 150 ML 150 ML IV SCH ×2 (05:55→17:49)
[2016-12-22 06:18] LABS: Mean Corpuscular Hemoglobin 26.5 pg (26-32)
[2016-12-22 06:35] LABS: ALBUMIN 1.5 g/dL (3.4-5.0); ALKALINE PHOSPHATASE 59 U/L (46-116); ANION GAP 11.3 MEQ/L (5-15); BLOOD UREA NITROGEN 13 mg/dL (9-20); CHLORIDE 107 mEq/L (98-107); Carbon Dioxide 29.9 mEq/L (21-32); Glucose 141 MG/DL (70-110); MAGNESIUM 1.7 mg/dL (1.8-2.4); Potassium 3.4 mEq/L (3.5-5.1); SGOT/AST 9 U/L (15-37); SODIUM 145 mEq/L (136-145); Total Protein 4.6 gm/dL (6.4-8.2)
[2016-12-22] MEDS: Glucophage 500 MG PO SCH ×2 (07:37→17:13)
[2016-12-22 08:07] LABS: SGPT/ALT 7 U/L (12-78)
--- NOTE | 2016-12-22 08:07 | PCM.NOTE ---
Date and Time: 12/22/16 0804 Subjective Assessment: patient continues to have significant issues with shortness of breath, requiring bipap much of the day yesterday. Objective Exam General Appearance: cachetic Neurologic Exam: alert Respiratory Exam: crackles/rales, rhonchi Cardiovascular Exam: regular rate/rhythm, normal heart sounds Gastrointestinal/Abdomen Exam: soft, No tenderness, No mass Extremity Exam: normal inspection, normal range of motion OBJECTIVE DATA Vital Signs: Vital Signs - 24 hr Temp Pulse Resp BP Pulse Ox 12/22/16 05:35 94 H 24 90 L 12/22/16 04:27 98.7 F 92 H 21 86/52 96 12/22/16 02:54 87 26 H 95 12/22/16 01:00 98.9 F 94 H 22 103/63 94 L 12/21/16 22:47 93 H 24 93 L 12/21/16 21:00 98.6 F 96 H 21 92/57 91 L 12/21/16 19:29 95 H 15 96 12/21/16 17:17 99.0 F 106 H 28 H 77/50 93 L 12/21/16 14:25 110 H 22 92 L 12/21/16 14:13 100.6 F 12/21/16 13:45 101.3 F 12/21/16 12:00 100.9 F 118 H 36 H 107/59 90 L 12/21/16 10:28 110 H 24 95 12/21/16 08:16 95 Oxygen-Last 24 hours O2 Percentage 100% O2 Percentage 100% O2 Percentage 100% Pain Assessment - Last Documented Pain Intensity 3 Pain Scale Used 0-10 Pain Scale Intake and Output: Intake & Output 12/19/16 12/20/16 12/21/16 12/22/16 11:59 11:59 11:59 11:59 Intake Total 3636 1374 720 Output Total 1780 3600 3050 Balance 8126 -6638 -9602 Weight 58.2 kg 61 kg 59.557 kg Lab Results: Accuchecks Date 12/21/16 Time 22:00 Accucheck Value: 161 Accucheck Value: 199 Accucheck Value: 156 Lab Results-Last 24 Hours 12/21/16 12/22/16 Range/Units 07:35 05:25 WBC 17.1 H (4.0-10.5) K/mm3 RBC 3.46 L (4.1-5.6) M/mm3 Hgb 9.2 L (12.5-18.0) gm/dl Hct 30.9 L (42-50) % MCV 89.3 (78-100) fl MCH 26.5 (26-32) pg MCHC 29.8 L (32-36) g/dl RDW 16.6 H (11.5-14.0) % Plt Count 318 (150-450) K/mm3 MPV 8.6 (6-9.5) fl Gran % 80.2 H (36.0-66.0) % Lymphocytes % 13.8 L (24.0-44.0) % Monocytes % 5.5 (0.0-12.0) % Eosinophils % 0.4 (0.00-5.0) % Basophils % 0.1 (0.0-0.4) % Basophils # 0.01 (0-0.4) Vancomycin Trough 7.6 L (10-20) UG/ML Radiology Exams: Radiology Procedures Category Date Time Status CHEST 1 VIEW (PORTABLE) Stat Exams 12/20/16 15:46 Completed Multi-Disciplinary Progress Notes: Multi-Disciplinary Progress Notes 12/21/16 21:37 RT Documentation Review by Milena Issa RT Interventions/Assessments/Treatments Respiratory Nebulizer Treatment-RT Start: 12/19/16 07: 00 Freq: Q4H Status: Active Document 12/21/16 10:28 (Rec: 12/21/16 10:39 [id number]) Respiratory Assessment-RT Respiratory Treatment Given-RT Yes Date-RT 12/21/16 Time-RT 10:28 Diagnosis-RT SOB, HYPOXIA, PNEUMONIA Pulmonary History-RT COPD, EMPHYSEMA, BLACK LUNG, PNEUMONIA Home Respiratory Medications and Oxygen- DUONEB Q4 RT SYMBICORT BID PRO AIR PRN 4LPM OXYGEN CONT. Indications for O2 Therapy-RT Home Usage Saturation < 92% on RA O2 Delivery Oxymizer Oxygen Flow Rate-RT (L/min) 15 O2 Sat by Pulse Oximetry (95-100) 95 Resting Yes Pulse Rate (60-90 beats/min) 110 Respiratory Rate (12-24 breaths/min) 24 Respiratory Effort-RT Labored Bronchodilator Indications-RT Diagnosis of COPD Home Bronchodilator Use Order Pneumonia Respiratory Treatment Method-RT Nebulizer Mouthpiece Nebulizer Medication Type-RT Duoneb Respiratory Treatment Tolerance-RT Excellent Anterior Bilateral Throughout Phase Inspiratory & Expiratory Breath Sounds-RT Rhonchi Cough Description-RT Non-productive Moist Cough Frequency-RT Intermittent Sputum Amount None Mental Status-RT Alert Last Chest X-Ray Results-RT 12/20/16 Impression: 1. Previously noted dense airspace consolidation within the left mid to upper lung field appears slightly larger representing an unfavorable change. This is consistent with pneumonia. 2. Also, there is increased radiodensity behind the heart with straightening of the left cardiac border suggestive of left lower lobe atelectasis. Concomitant pneumonic infiltrate at this level cannot be excluded. I believe this also is slightly more pronounced (i.e. increased radiodensity) as compared to 12/19/2016. 3. There are at least mild bibasilar pleural effusions. The effusion on the right appears slightly larger, but the effusion on the left appears about the same. 4. COPD with some chronic mixed interstitial/airspace disease within the right midlung zone and central right lung base. Respiratory Symptoms-RT SOB at Rest Continue Therapy as Ordered-RT Yes Goals-RT COPD Maintenance Improve Breath Sounds Improve Respiratory Status Keep Oxygenation > 92% Will Reassess Daily Document 12/21/16 14:25 MICAH (Rec: 12/21/16 14:29 [email or web address] ) Respiratory Assessment-RT Respiratory Treatment Given-RT Yes Date-RT 12/21/16 Time-RT 14:20 O2 Delivery Oxymizer Oxygen Flow Rate-RT (L/min) 15 O2 Sat by Pulse Oximetry (95-100) 92 Resting Yes Pulse Rate (60-90 beats/min) 110 Respiratory Rate (12-24 breaths/min) 22 Respiratory Effort-RT Labored Short of Breath Respiratory Treatment Method-RT Nebulizer Mask Nebulizer Medication Type-RT Duoneb Respiratory Treatment Tolerance-RT Good Anterior Right Throughout Phase Inspiratory & Expiratory Breath Sounds-RT Diminished Anterior/Posterior Left Throughout Phase Expiratory Breath Sounds-RT Coarse Crackles Cough Description-RT Non-productive Cough Frequency-RT Intermittent Sputum Amount None Mental Status-RT Alert Respiratory Symptoms-RT SOB at Rest SOB with Exertion Unable to Lie Flat Continue Therapy as Ordered-RT Yes Comments-RT PT SOB AT THIS TIME. SCHEDULED SVN TX GIVEN AND I PLACED PT BACK ON 15LPM OXYMIZER POST TX . PT REFUSED BIPAP AT THIS TIME. BIPAP REMAINS AT BEDSIDE ON STANDBY. PT AWARE THAT HE MAY CALL IF HE NEEDS THE BIPAP. Document 12/21/16 19:29 ST (Rec: 12/21/16 19:41 ST [id number]) Respiratory Assessment-RT Respiratory Treatment Given-RT Yes Date-RT 12/21/16 Time-RT 19:21 Pulmonary History-RT COPD, EMPHYSEMA, BLACK LUNG, PNEUMONIA Home Respiratory Medications and Oxygen- DUONEB Q4 RT SYMBICORT BID PRO AIR PRN 4LPM OXYGEN CONT. Indications for O2 Therapy-RT Home Usage Saturation < 92% on RA O2 Delivery Oxymizer Oxygen Flow Rate-RT (L/min) 15 Fraction of Inspired Oxygen (FIO2)-RT 80 Oxygen Humidity-RT Yes O2 Sat by Pulse Oximetry (95-100) 96 Resting Yes Pulse Rate (60-90 beats/min) 95 Respiratory Rate (12-24 breaths/min) 15 Respiratory Effort-RT Easy Short of Breath Bronchodilator Indications-RT Diagnosis of COPD Home Bronchodilator Use MD Order Pneumonia Respiratory Treatment Method-RT Nebulizer Mask Nebulizer Medication Type-RT Duoneb Respiratory Treatment Tolerance-RT Good Comment-RT GAVE TX VIA NEB AND MOUTHPIECE W/ AN O2 TANK WHILE PT IS ON 15LPM OXYMIZER. MDI-RT MDI Medication-RT Advair 230/ Spacer-RT Yes Rinsed Mouth After MDI-RT Yes Comment-RT 2PUFFS GIVEN Anterior Right Throughout Phase Inspiratory & Expiratory Breath Sounds-RT Diminished Anterior/Posterior Left Throughout Phase Expiratory Breath Sounds-RT Coarse Crackles Right Middle Lobe Phase Inspiratory & Expiratory Anterior Bilateral Throughout Phase Inspiratory & Expiratory Breath Sounds-RT Rhonchi Sputum Amount None Mental Status-RT Alert Last Chest X-Ray Results-RT 12/20/16 Impression: 1. Previously noted dense airspace consolidation within the left mid to upper lung field appears slightly larger representing an unfavorable change. This is consistent with pneumonia. 2. Also, there is increased radiodensity behind the heart with straightening of the left cardiac border suggestive of left lower lobe atelectasis. Concomitant pneumonic infiltrate at this level cannot be excluded. I believe this also is slightly more pronounced (i.e. increased radiodensity) as compared to 12/19/2016. 3. There are at least mild bibasilar pleural effusions. The effusion on the right appears slightly larger, but the effusion on the left appears about the same. 4. COPD with some chronic mixed interstitial/airspace disease within the right midlung zone and central right lung base. Respiratory Symptoms-RT SOB at Rest SOB with Exertion Unable to Lie Flat Continue Therapy as Ordered-RT Yes Change Therapy To:-RT ALL HOME RESPIRATORY MEDS ORDERED. Goals-RT COPD Maintenance Improve Breath Sounds Improve Respiratory Status Keep Oxygenation > 92% Will Reassess Daily Comments-RT PT SOB AT THIS TIME. SCHEDULED SVN TX GIVEN AND I PLACED PT BACK ON 15LPM OXYMIZER POST TX . BIPAP REMAINS AT BEDSIDE ON STANDBY. PT AWARE THAT HE MAY CALL IF HE NEEDS THE BIPAP. Respiratory Teaching Record Oxygen Response Return demonstration Verbalize understanding Methods Discussion Recipient Patient Nebulizer Response Return demonstration Verbalize understanding Methods Discussion Recipient Patient MDI Response Return demonstration Verbalize understanding Methods Discussion Recipient Patient Multidisiplinary Teaching Record Barriers to Learning Visual Readiness To Learn Good Respiratory Assessments/Treatments reviewed by Milena Issa on 12/21/16 at 2137. Initialized on 12/21/16 21:37 - END OF NOTE Assessment/Plan (1) Sepsis Current Visit: Yes Status: Resolved Qualifiers: Sepsis type: sepsis due to unspecified organism Qualified Code(s): A41.9 - Sepsis, unspecified organism (2) Pneumonia Current Visit: Yes Status: Acute Qualifiers: Pneumonia type: due to unspecified organism Laterality: bilateral Lung location: lower lobe of lung Qualified Code(s): J18.9 - Pneumonia, unspecified organism Assessment & Plan: patient clinically does not seem to be improving, currently on vanc and zosyn, blood cultures are negative. Code(s): J18.9 - PNEUMONIA, UNSPECIFIED ORGANISM (3) COPD (chronic obstructive pulmonary disease) Current Visit: No Status: Deleted Qualifiers: COPD type: emphysema Emphysema type: panlobular Qualified Code(s): J43.1 - Panlobular emphysema Assessment & Plan: patient has end-stage lung failure and I have discussed with him his prognosis and lack of improvement, he understands there is not much else we can offer him medically than his current treatment, he is a DNR and would not be unexpected due to his current clinical condition (4) Chronic hypoxemic respiratory failure Current Visit: No Status: Chronic (5) CHF (congestive heart failure) Current Visit: Yes Status: Acute Assessment & Plan: continue lasix 20mg IV bid Code(s): I50.9 - HEART FAILURE, UNSPECIFIED
[2016-12-22] MEDS: SENOKOT 8.6 MG PO SCH ×2 (09:48→21:39)
[2016-12-22] MEDS: Lasix 20 MG/2 ML IV SCH ×2 (09:48→17:13)
[2016-12-22] MEDS: Klor Con 10 MEQ PO SCH (09:48)
[2016-12-22] MEDS: ELIQUIS PO SCH ×2 (09:48→21:39)
[2016-12-22] MEDS: Protonix 40MG Tablet PO SCH (09:48)
[2016-12-22] MEDS: NovoLOG Insulin SQ PRN (11:47)
[2016-12-22] MEDS: TYLENOL 325 MG PO PRN (13:45)
[2016-12-22] MEDS: xanAX 0.5 MG PO SCH (21:48)
[2016-12-22] MEDS: NORCO 5/325 MG PO PRN (21:53)
[2016-12-23] MEDS: Zosyn 3.375GM/100 Ml D5W 3.375 GM/100 ML IVPB IV SCH ×4 (00:21→17:17)
[2016-12-23] MEDS: DUONEB 0.5-3 MG/3 ml Neb IH SCH ×6 (03:19→23:18)
[2016-12-23] MEDS ORDERED: TROUGH DRUG LEVELS IJ ONE (05:30)
[2016-12-23 05:47] LABS: BASOPHIL % 0.1 % (0.0-0.4); Eosinophil % 0.6 % (0.00-5.0); Granulocytes % 79.4 % (36.0-66.0); Lymphocytes % 13.8 % (24.0-44.0); Mean Cell Volume 89.6 fl (78-100); Monocytes % 6.1 % (0.0-12.0); Platelet Count 369 K/mm3 (150-450); Red Blood Count 3.36 M/mm3 (4.1-5.6); Red Cell Distribution Width 16.2 % (11.5-14.0); White Blood Count 16.3 K/mm3 (4.0-10.5)
[2016-12-23 06:20] LABS: ANION GAP 8.6 MEQ/L (5-15); BLOOD UREA NITROGEN 13 mg/dL (9-20); CHLORIDE 104 mEq/L (98-107); Carbon Dioxide 32.5 mEq/L (21-32); Glucose 149 MG/DL (70-110); SODIUM 143 mEq/L (136-145)
[2016-12-23] MEDS: Advair Hfa 230/21 Mcg COMMON CANISTER IH SCH ×2 (06:28→20:02)
[2016-12-23] MEDS: VANCOCIN 1 GM VIAL*** 0.75 GM in Sodium Chloride 0.9% 150 ML 150 ML IV SCH (06:32)
[2016-12-23] MEDS: Glucophage 500 MG PO SCH ×2 (08:10→17:17)
[2016-12-23] MEDS: NovoLOG Insulin SQ PRN ×2 (08:10→17:17)
[2016-12-23] MEDS ORDERED: K-LYTE 25 MEQ PO ONE (08:13)
--- NOTE | 2016-12-23 08:13 | PCM.NOTE ---
Date and Time: 12/23/16 0811 Subjective Assessment: the patient reports some mild improvement in his breathing, still having some problems with anxiety but meds help. still requiring large amounts of oxygen Objective Exam General Appearance: mild distress, alert Respiratory Exam: crackles/rales Cardiovascular Exam: regular rate/rhythm, normal heart sounds Gastrointestinal/Abdomen Exam: soft, No tenderness, No mass OBJECTIVE DATA Vital Signs: Vital Signs - 24 hr Temp Pulse Resp BP Pulse Ox 12/23/16 06:31 94 H 20 95 12/23/16 04:00 99.1 F 89 24 105/60 98 12/23/16 03:00 89 24 98 12/23/16 00:15 98.4 F 93 H 20 106/53 93 L 12/22/16 23:28 112 H 28 H 94 L 12/22/16 20:05 91 L 12/22/16 20:00 98.5 F 96 H 19 98/56 91 L 12/22/16 17:32 105 H 22 90 L 12/22/16 17:00 99.0 F 106 H 22 137/77 91 L 12/22/16 14:36 114 H 21 90 L 12/22/16 13:00 101.2 F 102 H 18 106/66 90 L 12/22/16 10:47 112 H 22 92 L 12/22/16 09:00 99.2 F 100 H 24 112/60 90 L Oxygen-Last 24 hours O2 Percentage 100% O2 Percentage 100% O2 Percentage 100% Pain Assessment - Last Documented Pain Intensity 3 Pain Scale Used 0-10 Pain Scale Intake and Output: Intake & Output 12/20/16 12/21/16 12/22/16 12/23/16 11:59 11:59 11:59 11:59 Intake Total 3636 2041 653 5397 Output Total 1780 3600 3050 2900 Balance 1304 -0236 -7721 -8450 Weight 61 kg 59.557 kg 60.645 kg 58.967 kg Lab Results: Accuchecks Date 12/23/16 Accucheck Value: 170 Accucheck Value: 167 Accucheck Value: 238 Lab Results-Last 24 Hours 12/23/16 12/23/16 12/23/16 Range/Units 05:15 05:15 05:15 WBC 16.3 H (4.0-10.5) K/mm3 RBC 3.36 L (4.1-5.6) M/mm3 Hgb 9.1 L (12.5-18.0) gm/dl Hct 30.1 L (42-50) % MCV 89.6 (78-100) fl MCH 27.0 (26-32) pg MCHC 30.2 L (32-36) g/dl RDW 16.2 H (11.5-14.0) % Plt Count 369 (150-450) K/mm3 MPV 8.0 (6-9.5) fl Gran % 79.4 H (36.0-66.0) % Lymphocytes % 13.8 L (24.0-44.0) % Monocytes % 6.1 (0.0-12.0) % Eosinophils % 0.6 (0.00-5.0) % Basophils % 0.1 (0.0-0.4) % Basophils # 0.01 (0-0.4) Sodium 143 (136-145) mEq/L Potassium 3.0 L* (3.5-5.1) mEq/L Chloride 104 (98-107) mEq/L Carbon Dioxide 32.5 H (21-32) mEq/L Anion Gap 8.6 (5-15) MEQ/L BUN 13 (9-20) mg/dL Creatinine 0.90 (0.55-1.30) mg/dl Estimated GFR > 60 ML/MIN Glucose 149 H (70-110) MG/DL Calcium 8.0 L (8.5-10.1) mg/dL Vancomycin Trough 10.6 (10-20) UG/ML Assessment/Plan (1) Sepsis Current Visit: Yes Status: Resolved Qualifiers: Sepsis type: sepsis due to unspecified organism Qualified Code(s): A41.9 - Sepsis, unspecified organism (2) Pneumonia Current Visit: Yes Status: Acute Qualifiers: Pneumonia type: due to unspecified organism Laterality: bilateral Lung location: lower lobe of lung Qualified Code(s): J18.9 - Pneumonia, unspecified organism Assessment & Plan: on vanc/zosyn, blood cultures negative. mild improvement in wbc Code(s): J18.9 - PNEUMONIA, UNSPECIFIED ORGANISM (3) COPD (chronic obstructive pulmonary disease) Current Visit: No Status: Deleted Qualifiers: COPD type: emphysema Emphysema type: panlobular Qualified Code(s): J43.1 - Panlobular emphysema (4) Chronic hypoxemic respiratory failure Current Visit: No Status: Chronic (5) CHF (congestive heart failure) Current Visit: Yes Status: Acute Assessment & Plan: still has rales mario c/w volume overload, will increase lasix. potassium will be replaced as well. Code(s): I50.9 - HEART FAILURE, UNSPECIFIED
--- NOTE | 2016-12-23 08:36 | XRAY ---
Indication: Follow-up pneumonia. CHF. Comparison: December 20, 2016. Portable chest again demonstrates moderate bibasilar pleural effusions/atelectasis, slightly worsened on the left. Stable left upper lung consolidating airspace disease and right midlung interstitial alveolar opacity. Heart is not enlarged. No new cardiopulmonary abnormalities.
[2016-12-23] MEDS: SENOKOT 8.6 MG PO SCH ×2 (08:37→22:06)
[2016-12-23] MEDS: Lasix 40 MG/4 ML IV SCH ×2 (08:37→17:17)
[2016-12-23] MEDS: Protonix 40MG Tablet PO SCH (08:37)
[2016-12-23] MEDS: ELIQUIS PO SCH ×2 (08:37→22:07)
[2016-12-23] MEDS: Klor Con 10 MEQ PO SCH ×2 (08:37→22:07)
[2016-12-23] MEDS: Ativan 0.5 MG PO PRN ×2 (09:08→14:54)
[2016-12-23] MEDS: Tessalon Perles 100 MG PO PRN (15:58)
[2016-12-23] MEDS: VANCOCIN 1 GM VIAL*** 1 GM in Sodium Chloride 0.9% 250 ML 250 ML IV SCH (18:00)
[2016-12-23] MEDS: NORCO 5/325 MG PO PRN (22:06)
[2016-12-23] MEDS: xanAX 0.5 MG PO SCH (22:09)
[2016-12-24] MEDS: Zosyn 3.375GM/100 Ml D5W 3.375 GM/100 ML IVPB IV SCH ×4 (00:33→17:59)
[2016-12-24] MEDS: DUONEB 0.5-3 MG/3 ml Neb IH SCH ×6 (03:21→23:01)
[2016-12-24 06:03] LABS: BASOPHIL % 0.1 % (0.0-0.4); Eosinophil % 0.7 % (0.00-5.0); Granulocytes % 77.7 % (36.0-66.0); Lymphocytes % 14.5 % (24.0-44.0); Mean Cell Volume 89.4 fl (78-100); Mean Corpuscular Hemoglobin 27.1 pg (26-32); Mean Platelet Volume 8.3 fl (6-9.5); Platelet Count 376 K/mm3 (150-450); Red Blood Count 3.21 M/mm3 (4.1-5.6); Red Cell Distribution Width 16.2 % (11.5-14.0); White Blood Count 15.4 K/mm3 (4.0-10.5)
[2016-12-24] MEDS: VANCOCIN 1 GM VIAL*** 1 GM in Sodium Chloride 0.9% 250 ML 250 ML IV SCH ×2 (06:31→19:47)
[2016-12-24 06:36] LABS: ANION GAP 10.2 MEQ/L (5-15); BLOOD UREA NITROGEN 16 mg/dL (9-20); CHLORIDE 99 mEq/L (98-107); Carbon Dioxide 32.8 mEq/L (21-32); Glucose 137 MG/DL (70-110); MAGNESIUM 1.8 mg/dL (1.8-2.4); Potassium 3.6 mEq/L (3.5-5.1); SODIUM 138 mEq/L (136-145)
[2016-12-24] MEDS: Advair Hfa 230/21 Mcg COMMON CANISTER IH SCH ×2 (06:42→19:19)
[2016-12-24] MEDS: Klor Con 10 MEQ PO SCH ×2 (07:56→21:08)
[2016-12-24] MEDS: Glucophage 500 MG PO SCH ×2 (07:56→16:45)
[2016-12-24] MEDS: ELIQUIS PO SCH ×2 (07:56→21:08)
[2016-12-24] MEDS: ANASPAZ 0.125 MG PO PRN (07:56)
[2016-12-24] MEDS: Protonix 40MG Tablet PO SCH (07:57)
[2016-12-24] MEDS: SENOKOT 8.6 MG PO SCH ×2 (07:57→21:08)
--- NOTE | 2016-12-24 09:47 | PCM.NOTE ---
Date and Time: 12/24/16 0945 Subjective Assessment: patient still requiring very high doses of oxygen to maintain sats, thinks he felt slightly better yesterday. he has been confused and weak Objective Exam General Appearance: thin Neurologic Exam: alert Respiratory Exam: prolonged expirations, crackles/rales Cardiovascular Exam: regular rate/rhythm Gastrointestinal/Abdomen Exam: soft, No tenderness, No mass OBJECTIVE DATA Vital Signs: Vital Signs - 24 hr Temp Pulse Resp BP Pulse Ox 12/24/16 07:00 98.5 F 112 H 22 133/61 91 L 12/24/16 06:42 62 18 94 L 12/24/16 03:21 48 L 22 97 12/24/16 03:00 98.4 F 50 L 21 106/59 95 12/23/16 23:18 61 26 H 93 L 12/23/16 23:00 98.5 F 90 23 113/57 95 12/23/16 19:52 111 H 24 92 L 12/23/16 19:46 98.9 F 63 22 128/64 93 L 12/23/16 17:19 100.2 F 109 H 24 109/64 92 L 12/23/16 15:00 100 H 22 93 L 12/23/16 12:00 100.3 F 102 H 20 112/71 91 L 12/23/16 10:29 94 H 18 94 L Oxygen-Last 24 hours O2 Percentage 100% Pain Assessment - Last Documented Pain Intensity 4 Pain Scale Used [facility] Intake and Output: Intake & Output 12/21/16 12/22/16 12/23/16 12/24/16 11:59 11:59 11:59 11:59 Intake Total 6670 793 7329 540 Output Total 3600 3050 2900 4150 Balance -4652 -4125 -0577 -4250 Weight 59.557 kg 60.645 kg 58.967 kg Lab Results: Accuchecks Date 12/24/16 Time 07:30 Accucheck Value: 157 Accucheck Value: 104 Accucheck Value: 222 Accucheck Value: 109 Lab Results-Last 24 Hours 12/24/16 12/24/16 Range/Units 05:55 05:55 WBC 15.4 H (4.0-10.5) K/mm3 RBC 3.21 L (4.1-5.6) M/mm3 Hgb 8.7 L (12.5-18.0) gm/dl Hct 28.7 L (42-50) % MCV 89.4 (78-100) fl MCH 27.1 (26-32) pg MCHC 30.3 L (32-36) g/dl RDW 16.2 H (11.5-14.0) % Plt Count 376 (150-450) K/mm3 MPV 8.3 (6-9.5) fl Gran % 77.7 H (36.0-66.0) % Lymphocytes % 14.5 L (24.0-44.0) % Monocytes % 7.0 (0.0-12.0) % Eosinophils % 0.7 (0.00-5.0) % Basophils % 0.1 (0.0-0.4) % Basophils # 0.02 (0-0.4) Sodium 138 (136-145) mEq/L Potassium 3.6 (3.5-5.1) mEq/L Chloride 99 (98-107) mEq/L Carbon Dioxide 32.8 H (21-32) mEq/L Anion Gap 10.2 (5-15) MEQ/L BUN 16 (9-20) mg/dL Creatinine 0.97 (0.55-1.30) mg/dl Estimated GFR > 60 ML/MIN Glucose 137 H (70-110) MG/DL Calcium 8.3 L (8.5-10.1) mg/dL Magnesium 1.8 (1.8-2.4) mg/dL Radiology Exams: Radiology Procedures Category Date Time Status CHEST 1 VIEW (PORTABLE) Routine Exams 12/23/16 08:14 Completed Multi-Disciplinary Progress Notes: Multi-Disciplinary Progress Notes 12/23/16 14:36 Case Management Note by Justa Moore ATTEMPTED TO REACH PT'S SON PAPI. LEFT VOICEMAIL MESSAGE. Initialized on 12/23/16 14:36 - END OF NOTE 12/23/16 14:00 (created 12/23/16 14:37) Case Management Note by Justa Moore SPOKE WITH GARRISON MCPHERSON, AT [facility]. REPORTS THAT THEY HAVE BIPAP IN PLACE, WILL BE READY FOR PT WHEN MD READY FOR DISCHARGE. Initialized on 12/23/16 14:37 - END OF NOTE Assessment/Plan (1) Sepsis Current Visit: Yes Status: Resolved Qualifiers: Sepsis type: sepsis due to unspecified organism Qualified Code(s): A41.9 - Sepsis, unspecified organism (2) Pneumonia Current Visit: Yes Status: Acute Qualifiers: Pneumonia type: due to unspecified organism Laterality: bilateral Lung location: lower lobe of lung Qualified Code(s): J18.9 - Pneumonia, unspecified organism Assessment & Plan: wbc slowly improving, continue vanc and zosyn. will likely need ECF placement if and when clinically improved. patient has endstage lung disease and prognosis is poor, he understands this Code(s): J18.9 - PNEUMONIA, UNSPECIFIED ORGANISM (3) COPD (chronic obstructive pulmonary disease) Current Visit: No Status: Deleted Qualifiers: COPD type: emphysema Emphysema type: panlobular Qualified Code(s): J43.1 - Panlobular emphysema (4) Chronic hypoxemic respiratory failure Current Visit: No Status: Chronic (5) CHF (congestive heart failure) Current Visit: Yes Status: Acute Code(s): I50.9 - HEART FAILURE, UNSPECIFIED
[2016-12-24] MEDS: Lasix 40 MG/4 ML IV SCH ×2 (11:44→16:46)
[2016-12-24] MEDS: xanAX 0.5 MG PO SCH (21:08)
[2016-12-25] MEDS: Zosyn 3.375GM/100 Ml D5W 3.375 GM/100 ML IVPB IV SCH ×4 (00:08→17:17)
[2016-12-25] MEDS: Ativan 0.5 MG PO PRN ×2 (00:23→09:13)
[2016-12-25] MEDS: DUONEB 0.5-3 MG/3 ml Neb IH SCH ×6 (03:31→23:24)
[2016-12-25] MEDS: VANCOCIN 1 GM VIAL*** 1 GM in Sodium Chloride 0.9% 250 ML 250 ML IV SCH ×2 (05:20→17:55)
[2016-12-25 06:45] LABS: Mean Cell Volume 89.1 fl (78-100); Mean Platelet Volume 8.4 fl (6-9.5); Platelet Count 440 K/mm3 (150-450); Red Blood Count 3.21 M/mm3 (4.1-5.6); White Blood Count 13.2 K/mm3 (4.0-10.5)
[2016-12-25 07:01] LABS: Mean Corpuscular Hemoglobin 26.7 pg (26-32)
[2016-12-25] MEDS: Advair Hfa 230/21 Mcg COMMON CANISTER IH SCH ×2 (07:11→19:04)
[2016-12-25 07:27] LABS: ANION GAP 10.8 MEQ/L (5-15); BLOOD UREA NITROGEN 16 mg/dL (9-20); CHLORIDE 98 mEq/L (98-107); Carbon Dioxide 33.1 mEq/L (21-32); Glucose 177 MG/DL (70-110); Potassium 3.5 mEq/L (3.5-5.1); SODIUM 138 mEq/L (136-145)
[2016-12-25] MEDS: SENOKOT 8.6 MG PO SCH ×2 (08:57→22:56)
[2016-12-25] MEDS: ELIQUIS PO SCH ×2 (08:57→22:56)
[2016-12-25] MEDS: Glucophage 500 MG PO SCH ×2 (08:57→16:24)
[2016-12-25] MEDS: ANASPAZ 0.125 MG PO PRN (08:57)
[2016-12-25] MEDS: Klor Con 10 MEQ PO SCH ×2 (08:57→22:56)
--- NOTE | 2016-12-25 08:57 | PCM.NOTE ---
Date and Time: 12/25/16851 Subjective Assessment: patient reports he had a good night last night, he is feeling some better. still has significant cough Objective Exam General Appearance: no apparent distress, alert Skin Exam: normal color, warm, dry Respiratory Exam: diminished breath sounds, prolonged expirations, crackles/ rales, No respiratory distress Cardiovascular Exam: regular rate/rhythm, normal heart sounds Gastrointestinal/Abdomen Exam: soft, No tenderness, No mass Extremity Exam: normal inspection, normal range of motion OBJECTIVE DATA Vital Signs: Vital Signs - 24 hr Temp Pulse Resp BP Pulse Ox 12/25/16 08:00 97.9 F 93 H 21 105/61 99 12/25/16 07:00 80 18 94 L 12/25/16 04:00 98.3 F 51 L 24 103/59 98 12/25/16 03:31 51 L 24 98 12/25/16 00:00 97.4 F 55 L 23 106/57 96 12/24/16 23:01 55 L 23 96 12/24/16 20:00 98.8 F 115 H 22 109/56 93 L 12/24/16 19:16 96 H 23 89 L 12/24/16 16:00 98.9 F 87 22 114/65 12/24/16 14:55 74 18 91 L 12/24/16 12:00 99.1 F 82 22 113/62 92 L 12/24/16 11:00 92 H 24 95 Pain Assessment - Last Documented Pain Intensity 4 Pain Scale Used [facility] Intake and Output: Intake & Output 12/22/16 12/23/16 12/24/16 12/25/16 11:59 11:59 11:59 11:59 Intake Total 720 1969 878 1131 Output Total 3050 2900 4150 7028 Balance -2957 -3211 -5980 -1091 Weight 60.645 kg 58.967 kg 55.52 kg Lab Results: Accuchecks Date 12/25/16 Date 12/24/16 Date 12/24/16 Time 21:30 Time 16:30 Time 11:30 Accucheck Value: 146 Accucheck Value: 148 Lab Results-Last 24 Hours 12/25/16 12/25/16 Range/Units 05:35 05:35 WBC 13.2 H (4.0-10.5) K/mm3 RBC 3.21 L (4.1-5.6) M/mm3 Hgb 8.6 L (12.5-18.0) gm/dl Hct 28.6 L (42-50) % MCV 89.1 (78-100) fl MCH 26.7 (26-32) pg MCHC 30.1 L (32-36) g/dl RDW 16.0 H (11.5-14.0) % Plt Count 440 (150-450) K/mm3 MPV 8.4 (6-9.5) fl Sodium 138 (136-145) mEq/L Potassium 3.5 (3.5-5.1) mEq/L Chloride 98 (98-107) mEq/L Carbon Dioxide 33.1 H (21-32) mEq/L Anion Gap 10.8 (5-15) MEQ/L BUN 16 (9-20) mg/dL Creatinine 1.16 (0.55-1.30) mg/dl Estimated GFR > 60 ML/MIN Glucose 177 H (70-110) MG/DL Calcium 8.5 (8.5-10.1) mg/dL Radiology Exams: Radiology Procedures Category Date Time Status CHEST 1 VIEW (PORTABLE) Routine Exams 12/23/16 08:14 Completed Assessment/Plan (1) Sepsis Current Visit: Yes Status: Resolved Qualifiers: Sepsis type: sepsis due to unspecified organism Qualified Code(s): A41.9 - Sepsis, unspecified organism (2) Pneumonia Current Visit: Yes Status: Acute Qualifiers: Pneumonia type: due to unspecified organism Laterality: bilateral Lung location: lower lobe of lung Qualified Code(s): J18.9 - Pneumonia, unspecified organism Assessment & Plan: improving at this time, continue current management Code(s): J18.9 - PNEUMONIA, UNSPECIFIED ORGANISM (3) COPD (chronic obstructive pulmonary disease) Current Visit: No Status: Deleted Qualifiers: COPD type: emphysema Emphysema type: panlobular Qualified Code(s): J43.1 - Panlobular emphysema (4) Chronic hypoxemic respiratory failure Current Visit: No Status: Chronic (5) CHF (congestive heart failure) Current Visit: Yes Status: Acute Code(s): I50.9 - HEART FAILURE, UNSPECIFIED
[2016-12-25] MEDS: Protonix 40MG Tablet PO SCH (09:03)
[2016-12-25] MEDS: Lasix 40 MG/4 ML IV SCH ×2 (09:04→16:24)
[2016-12-25 09:10] LABS: ANISOCYTOSIS 1+; Eosinophil 2 % (0.00-3.0); Hypochromia 1+; Platelet Estimate NORMAL (NORMAL); Total Cells Counted 100; Toxic Granulation 1+
[2016-12-25] MEDS: Tessalon Perles 100 MG PO PRN (09:10)
[2016-12-25] MEDS: TYLENOL 325 MG PO PRN (16:23)
[2016-12-25] MEDS: xanAX 0.5 MG PO SCH (22:56)
[2016-12-26] MEDS: Zosyn 3.375GM/100 Ml D5W 3.375 GM/100 ML IVPB IV SCH ×5 (00:40→23:13)
[2016-12-26] MEDS: DUONEB 0.5-3 MG/3 ml Neb IH SCH ×5 (03:13→19:22)
[2016-12-26] MEDS: Ativan 0.5 MG PO PRN (03:44)
[2016-12-26 06:19] LABS: BASOPHIL % 0.1 % (0.0-0.4); Eosinophil % 1.2 % (0.00-5.0); Granulocytes % 77.7 % (36.0-66.0); Lymphocytes % 15.1 % (24.0-44.0); Mean Cell Volume 89.8 fl (78-100); Mean Platelet Volume 8.5 fl (6-9.5); Monocytes % 5.9 % (0.0-12.0); Platelet Count 463 K/mm3 (150-450); Red Blood Count 3.15 M/mm3 (4.1-5.6); Red Cell Distribution Width 15.9 % (11.5-14.0); White Blood Count 13.9 K/mm3 (4.0-10.5)
[2016-12-26 06:32] LABS: Mean Corpuscular Hemoglobin 26.6 pg (26-32)
[2016-12-26] MEDS: Advair Hfa 230/21 Mcg COMMON CANISTER IH SCH ×2 (06:50→19:22)
[2016-12-26] MEDS: VANCOCIN 1 GM VIAL*** 1 GM in Sodium Chloride 0.9% 250 ML 250 ML IV SCH ×2 (07:02→18:36)
[2016-12-26 07:17] LABS: ALBUMIN 1.6 g/dL (3.4-5.0); ANION GAP 11.1 MEQ/L (5-15); BILIRUBIN,TOTAL 0.3 mg/dL (0.2-1.0); Carbon Dioxide 31.7 mEq/L (21-32); Potassium 3.5 mEq/L (3.5-5.1); Total Protein 6.5 gm/dL (6.4-8.2)
[2016-12-26] MEDS: Glucophage 500 MG PO SCH ×2 (07:49→17:27)
[2016-12-26] MEDS: ELIQUIS PO SCH ×2 (07:50→20:34)
[2016-12-26] MEDS: SENOKOT 8.6 MG PO SCH ×2 (07:50→20:34)
[2016-12-26] MEDS: Protonix 40MG Tablet PO SCH (07:51)
[2016-12-26] MEDS: Klor Con 10 MEQ PO SCH (07:51)
--- NOTE | 2016-12-26 08:23 | PCM.NOTE ---
Date and Time: 12/26/16821 Subjective Assessment: patient with no new complaints today, tolerating po intake. Objective Exam General Appearance: no apparent distress, alert Respiratory Exam: prolonged expirations, rhonchi, No respiratory distress Cardiovascular Exam: regular rate/rhythm Gastrointestinal/Abdomen Exam: soft, No tenderness, No mass Extremity Exam: normal inspection, normal range of motion OBJECTIVE DATA Vital Signs: Vital Signs - 24 hr Temp Pulse Resp BP Pulse Ox 12/26/16 08:03 92 L 12/26/16 07:49 98.5 F 67 20 90/52 94 L 12/26/16 06:54 54 L 20 95 12/26/16 05:02 98.9 F 70 20 103/59 97 12/26/16 03:15 88 22 97 12/26/16 00:00 98.2 F 76 20 118/56 96 12/25/16 23:24 52 L 20 98 12/25/16 20:00 98.0 F 98 H 22 106/55 94 L 12/25/16 19:04 53 L 20 98 12/25/16 16:00 100.2 F 90 22 104/55 95 12/25/16 15:11 84 20 94 L 12/25/16 12:00 98.2 F 100 H 21 99/60 96 12/25/16 11:00 84 20 95 12/25/16 10:39 88 20 95 Pain Assessment - Last Documented Pain Intensity 4 Pain Scale Used 0-10 Pain Scale Intake and Output: Intake & Output 12/23/16 12/24/16 12/25/16 12/26/16 11:59 11:59 11:59 11:59 Intake Total 3957 571 9490 1544 Output Total 2900 6750 5015 1000 Balance -8073 -4392 -4966 541 Weight 58.967 kg 55.52 kg 54.658 kg Lab Results: Accuchecks Date 12/26/16 Date 12/25/16 Date 12/25/16 Date 12/25/16 Time 07:30 Time 16:30 Time 16:30 Time 11:30 Accucheck Value: 164 Accucheck Value: 109 Accucheck Value: 144 Accucheck Value: 179 Lab Results-Last 24 Hours 12/25/16 12/26/16 12/26/16 Range/Units 05:35 05:30 05:30 WBC 13.2 H 13.9 H (4.0-10.5) K/mm3 RBC 3.21 L 3.15 L (4.1-5.6) M/mm3 Hgb 8.6 L 8.4 L (12.5-18.0) gm/dl Hct 28.6 L 28.3 L (42-50) % MCV 89.1 89.8 (78-100) fl MCH 26.7 26.6 (26-32) pg MCHC 30.1 L 29.7 L (32-36) g/dl RDW 16.0 H 15.9 H (11.5-14.0) % Plt Count 440 463 H (150-450) K/mm3 MPV 8.4 8.5 (6-9.5) fl Gran % 77.7 H (36.0-66.0) % Lymphocytes % 15.1 L (24.0-44.0) % Monocytes % 5.9 (0.0-12.0) % Eosinophils % 1.2 (0.00-5.0) % Basophils % 0.1 (0.0-0.4) % Segmented Neutrophils 71 H (36.-66.) % Lymphocytes (Manual) 21 L (24-44) % Monocytes (Manual) 6 (0.0-12.0) % Eosinophils (Manual) 2 (0.00-3.0) % Basophils # 0.02 (0-0.4) Differential Comment ABNORMAL Toxic Granulation 1+ Platelet Estimate NORMAL (NORMAL) Hypochromasia 1+ Anisocytosis 1+ Sodium 140 (136-145) mEq/L Potassium 3.5 (3.5-5.1) mEq/L Chloride 101 (98-107) mEq/L Carbon Dioxide 31.7 (21-32) mEq/L Anion Gap 11.1 (5-15) MEQ/L BUN 16 (9-20) mg/dL Creatinine 1.36 H (0.55-1.30) mg/dl Estimated GFR 55 ML/MIN Glucose 161 H (70-110) MG/DL Calcium 8.6 (8.5-10.1) mg/dL Total Bilirubin 0.30 (0.2-1.0) mg/dL AST 9 L (15-37) U/L ALT 6 L (12-78) U/L Alkaline Phosphatase 68 (46-116) U/L Serum Total Protein 6.5 (6.4-8.2) gm/dL Albumin 1.6 L (3.4-5.0) g/dL Assessment/Plan (1) Sepsis Current Visit: Yes Status: Resolved Qualifiers: Sepsis type: sepsis due to unspecified organism Qualified Code(s): A41.9 - Sepsis, unspecified organism (2) Pneumonia Current Visit: Yes Status: Acute Qualifiers: Pneumonia type: due to unspecified organism Laterality: bilateral Lung location: lower lobe of lung Qualified Code(s): J18.9 - Pneumonia, unspecified organism Assessment & Plan: stable, slightly improved. still with very high oxygen requirement Code(s): J18.9 - PNEUMONIA, UNSPECIFIED ORGANISM (3) COPD (chronic obstructive pulmonary disease) Current Visit: No Status: Deleted Qualifiers: COPD type: emphysema Emphysema type: panlobular Qualified Code(s): J43.1 - Panlobular emphysema (4) Chronic hypoxemic respiratory failure Current Visit: No Status: Chronic (5) CHF (congestive heart failure) Current Visit: Yes Status: Acute Assessment & Plan: improved, will d/c IV lasix today Code(s): I50.9 - HEART FAILURE, UNSPECIFIED
[2016-12-26] MEDS: xanAX 0.5 MG PO SCH (20:34)
[2016-12-27] MEDS: DUONEB 0.5-3 MG/3 ml Neb IH SCH ×4 (00:12→10:45)
[2016-12-27] MEDS ORDERED: TROUGH DRUG LEVELS IJ ONE (05:30)
[2016-12-27] MEDS: Zosyn 3.375GM/100 Ml D5W 3.375 GM/100 ML IVPB IV SCH ×2 (05:58→11:01)
[2016-12-27 06:28] LABS: BASOPHIL % 0.2 % (0.0-0.4); Eosinophil % 1.4 % (0.00-5.0); Granulocytes % 76.4 % (36.0-66.0); Lymphocytes % 16.4 % (24.0-44.0); Mean Cell Volume 90.8 fl (78-100); Mean Corpuscular Hemoglobin 26.7 pg (26-32); Mean Platelet Volume 8.4 fl (6-9.5); Monocytes % 5.6 % (0.0-12.0); Platelet Count 469 K/mm3 (150-450); Red Blood Count 2.92 M/mm3 (4.1-5.6); Red Cell Distribution Width 15.7 % (11.5-14.0); White Blood Count 11.8 K/mm3 (4.0-10.5)
[2016-12-27 06:49] LABS: ALBUMIN 1.5 g/dL (3.4-5.0); ALKALINE PHOSPHATASE 66 U/L (46-116); ANION GAP 12.1 MEQ/L (5-15); BLOOD UREA NITROGEN 13 mg/dL (9-20); CHLORIDE 104 mEq/L (98-107); Carbon Dioxide 28.1 mEq/L (21-32); Glucose 133 MG/DL (70-110); Potassium 3.7 mEq/L (3.5-5.1); SGOT/AST 10 U/L (15-37); SODIUM 141 mEq/L (136-145); Total Protein 5.4 gm/dL (6.4-8.2)
[2016-12-27] MEDS: VANCOCIN 1 GM VIAL*** 1 GM in Sodium Chloride 0.9% 250 ML 250 ML IV SCH (06:49)
[2016-12-27 07:04] LABS: SGPT/ALT < 6 U/L (12-78)
[2016-12-27] MEDS: Advair Hfa 230/21 Mcg COMMON CANISTER IH SCH (07:23)
[2016-12-27] MEDS: Glucophage 500 MG PO SCH (07:47)
[2016-12-27] MEDS: Protonix 40MG Tablet PO SCH (09:14)
[2016-12-27] MEDS: ELIQUIS PO SCH (09:14)
[2016-12-27] MEDS: SENOKOT 8.6 MG PO SCH (09:14)
[2016-12-27 10:47] VITALS: O2SAT 93
[2016-12-27 12:19] VITALS: BP 94/64; PULSE 100
--- NOTE | 2016-12-27 13:40 | PCM.DS ---
Discharge Summary Date of Admission: 12/19/16 07:16 Admitting Physician: IBETH JAEGER Consults: Consults on Case 12/19/16 19:00 Nutritional Consult Primary Care Provider: IBETH JAEGER Allergies Allergies No Known Drug Allergies Allergy (Verified 12/19/16 03:49) Hospital Summary - Hospital Course Hospital Course: Pt with end stage COPD admitted through ER, had been on hospice but was SOB and they had 60-90 min response time. He was found to have L sided pneumonia and admitted to ICU on IV vancomycin and zosyn. He has had a ghassan course, was initially doing better then had to go on BiPap due to hypoxemia. Currently he is on 5L NC, tolerating po well. He plans to d/c to [facility]. - Vitals & Intake/Output Vital Signs: Vital Signs Temperature 98.7 F 12/27/16 12:18 Pulse Rate 100 H 12/27/16 12:18 Respiratory Rate 21 12/27/16 12:18 Blood Pressure 94/64 12/27/16 12:18 O2 Sat by Pulse Oximetry 93 L 12/27/16 10:46 Oxygen-Last Documented O2 Percentage 6 Liters = 44% Intake & Output: Intake & Output 12/25/16 12/26/16 12/27/16 12/28/16 11:59 11:59 11:59 11:59 Intake Total 1020 1544 560 Output Total 2775 1000 850 Balance -1755 544 -290 Weight 54.658 kg 55.792 kg - Lab Result Diagrams: 12/27/16 05:40 12/27/16 05:40 Lab Results-Last 24 Hrs: Accuchecks Date 12/27/16 Date 12/27/16 Date 12/26/16 Time 11:24 Time 07:30 Time 16:30 Accucheck Value: 140 Accucheck Value: 142 Accucheck Value: 141 Accucheck Value: 118 Lab Results-Last 24 Hours 12/27/16 12/27/16 12/27/16 Range/Units 05:40 05:40 05:40 WBC 11.8 H (4.0-10.5) K/mm3 RBC 2.92 L (4.1-5.6) M/mm3 Hgb 7.8 L (12.5-18.0) gm/dl Hct 26.5 L (42-50) % MCV 90.8 (78-100) fl MCH 26.7 (26-32) pg MCHC 29.4 L (32-36) g/dl RDW 15.7 H (11.5-14.0) % Plt Count 469 H (150-450) K/mm3 MPV 8.4 (6-9.5) fl Gran % 76.4 H (36.0-66.0) % Lymphocytes % 16.4 L (24.0-44.0) % Monocytes % 5.6 (0.0-12.0) % Eosinophils % 1.4 (0.00-5.0) % Basophils % 0.2 (0.0-0.4) % Basophils # 0.02 (0-0.4) Sodium 141 (136-145) mEq/L Potassium 3.7 (3.5-5.1) mEq/L Chloride 104 (98-107) mEq/L Carbon Dioxide 28.1 (21-32) mEq/L Anion Gap 12.1 (5-15) MEQ/L BUN 13 (9-20) mg/dL Creatinine 0.97 (0.55-1.30) mg/dl Estimated GFR > 60 ML/MIN Glucose 133 H (70-110) MG/DL Calcium 7.9 L (8.5-10.1) mg/dL Total Bilirubin 0.30 (0.2-1.0) mg/dL AST 10 L (15-37) U/L ALT < 6 L (12-78) U/L Alkaline Phosphatase 66 (46-116) U/L Serum Total Protein 5.4 L (6.4-8.2) gm/dL Albumin 1.5 L (3.4-5.0) g/dL Vancomycin Trough 23.7 H (10-20) UG/ML Micro Results-Entire Visit: Microbiology 12/22/16 15:38 - Final Urine, Indwelling Catheter Yeast Species Accuchecks Date 12/27/16 Date 12/27/16 Date 12/26/16 Time 11:24 Time 07:30 Time 16:30 Accucheck Value: 140 Accucheck Value: 142 Accucheck Value: 141 Accucheck Value: 118 - Procedures and Test Procedures and Tests throughout Hospitalization: Therapy Orders & Screens 12/19/16 07:00 Respiratory MDI BID Comment: ADV 230/21 BID Respiratory Nebulizer Q4H Comment: TRAYONEB Q4 12/19/16 07:36 Oxygen NASAL CANNULA 5 lpm Comment: 12/19/16 07:41 Respiratory Nebulizer UD Comment: DUONEB Q4PRN 12/19/16 10:18 OT Screen per Nursing Assess Comment: Protocol Order Physician Instructions: Greater than 3 points order OT Admission Screening Reason For Exam: Triggered on Admission Diagnosis: SOB; Pneumonia; hypoxia Open Wound/Cellutlitis/Pressure Ulcers: No Acute Fx/ORIF/Change in wt bearing status: No Severe MUSCULOSKELETAL pain: No ADL Dysfunction: Yes Acute CVA w/Hemiparesis/Hemiplegia: No Decreased Functional Mobility/Strength: Yes Sprain/Strain: No Acute Post-op Mobility Dysfunction: No Total Points: 4 PT Screen per Nursing Assess ONCE Comment: Protocol Order Physician Instructions: Greater than 3 points order PT Admission Screenin Reason For Exam: Triggered on Admission Diagnosis: SOB; Pneumonia; hypoxia Open Wound/Cellutlitis/Pressure Ulcers: No Acute Fx/ORIF/Change in wt bearing status: No Severe MUSCULOSKELETAL pain: No ADL Dysfunction: Yes Acute CVA w/Hemiparesis/Hemiplegia: No Decreased Functional Mobility/Strength: Yes Sprain/Strain: No Acute Post-op Mobility Dysfunction: No Total Points: 4 RT Screen per Nursing Assess ONCE Comment: Protocol Order Physician Instructions: Greater than 3 points order RT Admission Screen Reason For Exam: Triggered on Admission Diagnosis: SOB; Pneumonia; hypoxia Diagnosis: SOB; Pneumonia; hypoxia Pneumonia: Yes Home O2: Yes Asthma: No CHF: Yes Home CPAP/BIPAP: No Home Nebs/MDI: Yes Total Points: 16 12/20/16 12:45 BiPap/CPAP Assessment ROUTINE Comment: Diagnosis: SOB; Pneumonia; hypoxia Discharge Exam General Appearance: no apparent distress Neurologic Exam: alert, oriented x 3, cooperative Skin Exam: normal color, warm, dry Neck Exam: normal inspection Respiratory Exam: rhonchi (on L, scattered. Poor air exchange on L; Fair air exchange on R. Increased exp phase bilaterally. No wheezing.) Cardiovascular Exam: irregular (no tachycardia) Gastrointestinal/Abdomen Exam: soft, normal bowel sounds, No tenderness Extremity Exam: No pedal edema, No swelling Final Diagnosis/Problem List - Final Discharge Diagnosis/Problem (1) Sepsis Current Visit: Yes Status: Resolved (2) Pneumonia Current Visit: Yes Status: Acute Assessment & Plan: He has improved. His prognosis is poor overall as his COPD is end stage. Will d /c to [facility]TC[facility] on IV zosyn. (3) Chronic hypoxemic respiratory failure Current Visit: No Status: Chronic Assessment & Plan: On O2 24 hours a day, still with an O2 requirement over baseline and requires BiPap at times. (4) End stage COPD Current Visit: No Status: Chronic Assessment & Plan: d/c to [facility] today. (5) CHF (congestive heart failure) Current Visit: No Status: Chronic - Discharge Disposition: Skilled Care @ [facility] Condition: Fair Prescriptions: New Insulin Aspart [NovoLOG Insulin] 1 unit SQ UD PRN #0 unit PRN Reason: HYPERGLYCEMIA Piperacillin/Tazobactam Premix [Zosyn 3.375GM/100 Ml D5w] 3.375 gm IV Q6HT # 0 ivpb Continue Tramadol HCl 50 mg [Ultram 50 mg] 50 mg PO BIDPRN PRN PRN Reason: Pain Sennosides [Senna] 8.6 mg PO BID Albuterol Sulfate [Proair Hfa] 2 puff IH Q4HWA Omeprazole 20 MG [Prilosec 20 mg] 20 mg PO DAILY Prednisone 20 mg [Deltasone 20 mg] 20 mg PO DAILY Polyethylene Glycol 3350 17 gm [Miralax Powder 17GM PACKET] 17 gm PO DAILY PRN PRN PRN Reason: Constipation Metformin HCl 500 mg [Glucophage 500 MG] 500 mg PO BID Hyoscyamine Sulfate 0.125 mg [Anaspaz 0.125 mg] 0.125 mg PO Q4HPRN PRN PRN Reason: secretions Haloperidol Lactate [Haloperidol] 0.5 ml PO Q6HPRN PRN PRN Reason: Agitation Glipizide 5 mg [Glucotrol 5 MG] 5 mg PO BID Guaifenesin/Codeine Phosphate [Cheratussin AC Syrup] 5 ml PO DAILY PRN PRN PRN Reason: Cough Apixaban [Eliquis] 5 mg PO BID Bisacodyl 10 mg RC DAILY PRN PRN PRN Reason: Constipation Hydrocodone/Acetaminophen [[place] 5-325 Tablet] 1 each PO TID PRN PRN Reason: Pain Lorazepam [Lorazepam Intensol] 0.5 mg PO UD PRN PRN Reason: Agitation Ipratropium/Albuterol Sulfate [Iprat-Albut 0.5-3(2.5) mg/3 ml] 3 ml IH Q4H Prochlorperazine Maleate 10 mg [Compazine 10 mg] 10 mg PO Q6HPRN PRN PRN Reason: n/v Acetaminophen 650 mg [Feverall 650 mg] 1 supp RC Q6HPRN PRN PRN Reason: pain/fever Alprazolam 0.5 mg PO HS #30 tablet Instructions: Heart Failure, Chronic Obstructive Pulmonary Disease Follow up with: IBETH JAEGER MD [Primary Care Provider] - Forms: Patient Portal Information
[2016-12-27] MEDS: Ativan 0.5 MG PO PRN (14:24)
[2016-12-28] MEDS ORDERED: TROUGH DRUG LEVELS IJ ONE (05:30)
== END 2016-12-27 15:00 | DRG 871 ==
LOC: ED 03:38 → ICU 07:16 → MED SURG 12-20 09:32
PROVIDERS: ADMIT Family Medicine; ATTEND Family Medicine
DX: A41.9 Sepsis, unspecified organism (principal); J18.9 Pneumonia, unspecified organism; I50.23 Acute on chronic systolic (congestive) heart failure; J96.11 Chronic respiratory failure with hypoxia; J44.9 Chronic obstructive pulmonary disease, unspecified; E11.9 Type 2 diabetes mellitus without complications; F41.9 Anxiety disorder, unspecified; Z79.01 Long term (current) use of anticoagulants; Z79.899 Other long term (current) drug therapy; Z86.711 Personal history of pulmonary embolism; J60 Coalworker's pneumoconiosis; Z90.2 Acquired absence of lung [part of]
CPT/HCPCS: 36000; 36415; 36600; 51702; 71010; 80048; 80053; 80202; 81000; 82375; 82803; 82962; 83036; 83605; 83735; 83880; 84484; 85025; 85379; 85610; 85730; 87040; 87077; 87086; 93005; 93041; 94002; 94003; 94640; 94760; 96360; 96361; 96365; 96368; 99291; J1940; J2543; J3370; A9270-GY

== ENCOUNTER 2017-05-05 10:07 | Emergency (ER) | payer BLACK LUNG, MEDICARE ==
[2017-05-05] MEDS ORDERED: ROCEPHIN 1 Gm-D5w 50 ml Bag** 1 G/50 ML IVPB IV STA (10:38)
[2017-05-05] MEDS ORDERED: PROVENTIL 2.5 MG/3 ML NEB IH ONE ×2 (10:38→10:49)
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
[2017-05-05] MEDS ORDERED: ROCEPHIN 1 Gm-D5w 50 ml Bag** 1 G/50 ML IVPB IV ONE (10:49)
[2017-05-05 11:02] LABS: BASOPHIL % 0.4 % (0.0-0.4); Eosinophil % 2.9 % (0.00-5.0); Granulocytes % 42.9 % (36.0-66.0); Lymphocytes % 45.8 % (24.0-44.0); Mean Corpuscular Hemoglobin 28.5 pg (26-32); Mean Platelet Volume 8.5 fl (6-9.5); Platelet Count 253 K/mm3 (150-450); Red Blood Count 4.24 M/mm3 (4.1-5.6); Red Cell Distribution Width 13.9 % (11.5-14.0); White Blood Count 9.3 K/mm3 (4.0-10.5)
[2017-05-05 11:33] LABS: TROPONIN < 0.017 ng/ml (0.000-0.056)
[2017-05-05 11:56] LABS: ALBUMIN 3.2 g/dL (3.4-5.0); ALKALINE PHOSPHATASE 72 U/L (46-116); ANION GAP 17.5 MEQ/L (5-15); BLOOD UREA NITROGEN 21 mg/dL (9-20); CHLORIDE 106 mEq/L (98-107); Carbon Dioxide 25.1 mEq/L (21-32); Glucose 111 MG/DL (70-110); Potassium 3.9 mEq/L (3.5-5.1); SGOT/AST 12 U/L (15-37); SGPT/ALT 14 U/L (12-78); SODIUM 145 mEq/L (136-145); Total Protein 7.2 gm/dL (6.4-8.2)
[2017-05-05 12:46] VITALS: BP 106/65; PULSE 84; O2SAT 95
--- NOTE | 2017-05-05 14:53 | XRAY ---
Indication: Cough and short of breath. Comparison: April 04, 2017. PA/lateral chest unchanged again hyperinflated with bilateral midlung fibrosis/scarring and bibasilar pleural effusions/thickening. Heart and mediastinal structures within normal limits. No new cardiopulmonary abnormalities.
== END 2017-05-05 14:29 | disposition home or self-care (01) ==
LOC: ED 10:07
DX: J40 Bronchitis, not specified as acute or chronic (principal); R06.02 Shortness of breath; R05 Cough; R50.9 Fever, unspecified; J44.9 Chronic obstructive pulmonary disease, unspecified; E11.9 Type 2 diabetes mellitus without complications; F41.9 Anxiety disorder, unspecified; K21.9 Gastro-esophageal reflux disease without esophagitis
CPT/HCPCS: 36000; 36415; 71020; 80053; 83605; 83880; 84484; 85025; 87040; 93005; 93041; 99284; J0696; A9270-GY

== ENCOUNTER 2017-06-06 16:14 | Inpatient (IN) | payer BLACK LUNG, MEDICARE ==
[2017-06-06] MEDS ORDERED: DUONEB 0.5-3 MG/3 ml Neb IH ONE ×2 (16:19→16:22)
[2017-06-06] MEDS ORDERED: solu-MEDROL 125 MG IV ONE (16:19)
[2017-06-06] MEDS ORDERED: ROCEPHIN 1 Gm-D5w 50 ml Bag** 1 G/50 ML IVPB IV STA (16:19)
[2017-06-06] MEDS ORDERED: solu-MEDROL 125 MG ONE (16:25)
[2017-06-06] MEDS ORDERED: ROCEPHIN 1 Gm-D5w 50 ml Bag** 1 G/50 ML IVPB IV ONE (16:25)
[2017-06-06] MEDS ORDERED: Sodium Chloride 0.9% 1000 ML 1,000 ML ONE (16:25)
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
[2017-06-06] MEDS: Sodium Chloride 0.9% 1000 ML 1,000 ML IV SCH ×2 (16:31→22:25)
[2017-06-06 16:39] LABS: A-aADO2 167; ABG HEMOGLOBIN 11.1; ABG POTASSIUM 3.9 (3.5-5.1); ARTERIAL BLD GAS O2 SATURATION 96.9 % (95-100); ARTERIAL BLOOD GAS BASE EXCESS 2.2 (-2.0-2.0); ARTERIAL BLOOD GAS FIO2 40 %; ARTERIAL BLOOD GAS PCO2 39 mmHg (35-45); ARTERIAL BLOOD GAS PO2 69 mmHg (75-100); ARTERIAL BLOOD GAS pH 7.44 (7.35-7.45); CARBOXYHEMOGLOBIN 1.7 % THgb (0.0-6.9); HCO3- 26.5 (22-28); HGB O2 SAT 94.8 g/dF (94-100); Methhemoglobin 0.6 % (1.4-1.5); paO2 pAO1 0.29
[2017-06-06] MEDS ORDERED: TYLENOL EXTRA STRENGTH 500 MG PO STA (16:39)
[2017-06-06 16:41] LABS: ABG SITE LEFT RADIAL; ALLEN TEST OK? YES
[2017-06-06] MEDS ORDERED: TYLENOL EXTRA STRENGTH 500 MG ONE ×2 (16:43→16:45)
[2017-06-06 16:58] LABS: ALBUMIN 3.2 g/dL (3.4-5.0); ALKALINE PHOSPHATASE 79 U/L (46-116); ANION GAP 11.1 MEQ/L (5-15); BLOOD UREA NITROGEN 11 mg/dL (9-20); CHLORIDE 109 mEq/L (98-107); Carbon Dioxide 29.8 mEq/L (21-32); Creatinine 1 1.07 mg/dl (0.55-1.30); EST GLOMERULAR FILTRATION RATE > 60 ML/MIN; Glucose 121 MG/DL (70-110); MAGNESIUM 1.8 mg/dL (1.8-2.4); SGOT/AST 17 U/L (15-37); SGPT/ALT 16 U/L (12-78); SODIUM 146 mEq/L (136-145); Total Protein 7.1 gm/dL (6.4-8.2)
--- NOTE | 2017-06-06 16:58 | XRAY ---
Indication: Fever, cough, and short of breath. Comparison: May 05, 2017. Portable chest unchanged again demonstrating right lung post surgical changes, bilateral midlung fibrosis/scarring, and bibasilar pleural effusion/thickening. Heart is not enlarged. No new/acute findings.
[2017-06-06 17:04] LABS: BASOPHIL % 0.1 % (0.0-0.4); Basophil (Absolute #) 0.01 (0-0.4); Eosinophil % 1.4 % (0.00-5.0); Eosinophil (Absolute #) 0.11 (0-0.5); Granulocyte Absolute (ANC) 5.75 (1.4-6.9); Granulocytes % 71.9 % (36.0-66.0); Hematocrit 34.7 % (42-50); Hemoglobin 10.9 gm/dl (12.5-18.0); Lymphocyte (Absolute #) 1.61 (1.0-4.6); Lymphocytes % 20.1 % (24.0-44.0); Mean Cell Volume 92.5 fl (78-100); Mean Corpuscular Hgb Concent. 31.4 g/dl (32-36); Mean Platelet Volume 8.3 fl (6-9.5); Monocyte (Absolute #) 0.52 (0.0-1.3); Monocytes % 6.5 % (0.0-12.0); Platelet Count 299 K/mm3 (150-450); Red Blood Count 3.75 M/mm3 (4.1-5.6); Red Cell Distribution Width 14.1 % (11.5-14.0)
[2017-06-06 17:10] LABS: INR 1.11 (0.8-3.0)
[2017-06-06] MEDS ORDERED: Sodium Chloride 0.9% 1000 ML 1,000 ML IV STA (17:11)
[2017-06-06 17:43] LABS: INFLUENZA A POSITIVE (NEGATIVE); INFLUENZA B NEGATIVE (NEGATIVE); RESPIRATORY SYNCTIAL VIRUS NEGATIVE (Negative)
[2017-06-06] MEDS ORDERED: TYLENOL EXTRA STRENGTH 500 MG PO PRN (17:57)
[2017-06-06] MEDS ORDERED: TORAdol 30 mg Injection IM ONE (18:19)
[2017-06-06] MEDS ORDERED: TORAdol 30 mg Injection ONE (18:21)
[2017-06-06] MEDS: solu-MEDROL 125 MG IV SCH ×2 (18:40→23:56)
[2017-06-06] MEDS: DUONEB 0.5-3 MG/3 ml Neb IH SCH ×2 (20:26→23:17)
[2017-06-06] MEDS ORDERED: xanAX 0.5 MG PO PRN (22:12)
[2017-06-06] MEDS ORDERED: ULTRAM 50 MG PO PRN (22:14)
[2017-06-06] MEDS: Pepcid 20 MG VIAL IV SCH (23:04)
[2017-06-06] MEDS: ELIQUIS PO SCH (23:04)
[2017-06-06] MEDS: Tamiflu 75MG Capsule PO SCH (23:04)
[2017-06-07] MEDS: DUONEB 0.5-3 MG/3 ml Neb IH SCH ×6 (03:29→23:26)
[2017-06-07 04:50] LABS: Appearance CLEAR (CLEAR)
[2017-06-07 04:51] LABS: Bilirubin NEGATIVE (NEGATIVE); Blood NEGATIVE Ery/ul (0-5); Glucose NEGATIVE (NEGATIVE); Ketones NEGATIVE (NEGATIVE); Leukocyte Esterase NEGATIVE (NEGATIVE); Nitrite NEGATIVE (NEGATIVE); Protein,Urine Dip NEGATIVE (Negative); Urobilinogen NORMAL mg/dL (0-1)
[2017-06-07] MEDS: solu-MEDROL 125 MG IV SCH ×4 (06:09→23:16)
[2017-06-07] MEDS: Sodium Chloride 0.9% 1000 ML 1,000 ML IV SCH ×2 (07:54→18:43)
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
[2017-06-07] MEDS: Tamiflu 75MG Capsule PO SCH ×2 (09:27→23:15)
[2017-06-07] MEDS: Pepcid 20 MG VIAL IV SCH ×2 (09:27→23:16)
[2017-06-07] MEDS: ELIQUIS PO SCH ×2 (09:27→23:15)
[2017-06-07] MEDS ORDERED: NON-FORMULARY ITEM (Omeprazole 20 Mg [Prilosec 20 Mg] 20 MG) PO SCH (10:00)
[2017-06-07] MEDS: Protonix 40MG Tablet PO SCH (10:03)
[2017-06-07] MEDS: Glucophage 500 MG PO SCH ×2 (10:03→17:31)
[2017-06-07] MEDS ORDERED: ELIQUIS PO SCH (22:30)
[2017-06-08] MEDS: DUONEB 0.5-3 MG/3 ml Neb IH SCH ×6 (04:03→23:18)
[2017-06-08] MEDS: Sodium Chloride 0.9% 1000 ML 1,000 ML IV SCH ×2 (04:48→15:56)
[2017-06-08] MEDS: solu-MEDROL 125 MG IV SCH ×4 (05:55→23:43)
[2017-06-08 06:04] LABS: BASOPHIL % 0.1 % (0.0-0.4); Basophil (Absolute #) 0.01 (0-0.4); Eosinophil (Absolute #) 0 (0-0.5); Granulocyte Absolute (ANC) 9.99 (1.4-6.9); Granulocytes % 89.1 % (36.0-66.0); Hematocrit 28.2 % (42-50); Hemoglobin 8.8 gm/dl (12.5-18.0); Lymphocyte (Absolute #) 0.69 (1.0-4.6); Lymphocytes % 6.2 % (24.0-44.0); Mean Cell Volume 91.9 fl (78-100); Mean Corpuscular Hgb Concent. 31.2 g/dl (32-36); Mean Platelet Volume 8.2 fl (6-9.5); Monocyte (Absolute #) 0.52 (0.0-1.3); Monocytes % 4.6 % (0.0-12.0); Platelet Count 264 K/mm3 (150-450); Red Blood Count 3.07 M/mm3 (4.1-5.6); Red Cell Distribution Width 14.3 % (11.5-14.0); White Blood Count 11.2 K/mm3 (4.0-10.5)
[2017-06-08 06:17] LABS: ANION GAP 12.9 MEQ/L (5-15); BLOOD UREA NITROGEN 16 mg/dL (9-20); CHLORIDE 111 mEq/L (98-107); Calcium 7.8 mg/dL (8.5-10.1); Carbon Dioxide 24.1 mEq/L (21-32); Creatinine 1 1.05 mg/dl (0.55-1.30); EST GLOMERULAR FILTRATION RATE > 60 ML/MIN; Glucose 182 MG/DL (70-110); Potassium 3.8 mEq/L (3.5-5.1); SODIUM 144 mEq/L (136-145)
[2017-06-08 06:35] LABS: Mean Corpuscular Hemoglobin 28.6 pg (26-32)
[2017-06-08] MEDS ORDERED: Tussionex Pennkinetic Susp PO PRN (07:37)
--- NOTE | 2017-06-08 07:37 | PCM.NOTE ---
Date and Time: 06/08/17734 Subjective Assessment: patient feeling a little better but still with significant cough, eating and drinking ok Objective Exam General Appearance: thin Neurologic Exam: alert, oriented x 3 Skin Exam: normal color, warm Respiratory Exam: rhonchi (right lung base) Cardiovascular Exam: regular rate/rhythm, normal heart sounds Gastrointestinal/Abdomen Exam: soft, No tenderness, No mass Extremity Exam: normal inspection, normal range of motion OBJECTIVE DATA Vital Signs: Vital Signs - 24 hr Temp Pulse Resp BP BP Pulse Ox 06/08/17 07:10 73 20 96 06/08/17 04:03 89 21 97 06/08/17 04:00 98.5 F 76 20 126/72 99 06/08/17 00:00 98.0 F 77 22 116/64 97 06/07/17 23:26 95 H 22 97 06/07/17 20:00 98.2 F 90 21 126/71 96 06/07/17 18:55 90 21 96 06/07/17 16:00 98 F 88 22 113/63 97 06/07/17 14:45 77 18 99 06/07/17 12:00 18 06/07/17 11:12 76 18 97 06/07/17 11:05 98.2 F 72 20 102/59 98 06/07/17 08:00 20 06/07/17 07:55 98.6 F 93 H 20 134/66 93 L Oxygen-Last 24 hours O2 Percentage 5 Liters = 40% O2 Percentage 5 Liters = 40% O2 Percentage 5 Liters = 40% O2 Percentage 5 Liters = 40% O2 Percentage 5 Liters = 40% O2 Percentage 5 Liters = 40% Pain Assessment - Last Documented Pain Intensity 0 Pain Scale Used 0-10 Pain Scale Intake and Output: Intake & Output 06/05/17 06/06/17 06/07/17 06/08/17 11:59 11:59 11:59 11:59 Intake Total 1107 3916 Output Total 615 2375 Balance 557 1541 Weight 60.917 kg Lab Results: Lab Results-Last 24 Hours 06/08/17 06/08/17 Range/Units 05:35 05:35 WBC 11.2 H (4.0-10.5) K/mm3 RBC 3.07 L (4.1-5.6) M/mm3 Hgb 8.8 L (12.5-18.0) gm/dl Hct 28.2 L (42-50) % MCV 91.9 (78-100) fl MCH 28.6 (26-32) pg MCHC 31.2 L (32-36) g/dl RDW 14.3 H (11.5-14.0) % Plt Count 264 (150-450) K/mm3 MPV 8.2 (6-9.5) fl Gran % 89.1 H (36.0-66.0) % Lymphocytes % 6.2 L (24.0-44.0) % Monocytes % 4.6 (0.0-12.0) % Eosinophils % 0.0 (0.00-5.0) % Basophils % 0.1 (0.0-0.4) % Basophils # 0.01 (0-0.4) Sodium 144 (136-145) mEq/L Potassium 3.8 (3.5-5.1) mEq/L Chloride 111 H (98-107) mEq/L Carbon Dioxide 24.1 (21-32) mEq/L Anion Gap 12.9 (5-15) MEQ/L BUN 16 (9-20) mg/dL Creatinine 1.05 (0.55-1.30) mg/dl Estimated GFR > 60 ML/MIN Glucose 182 H (70-110) MG/DL Calcium 7.8 L (8.5-10.1) mg/dL Assessment/Plan (1) Influenza A Current Visit: Yes Status: Acute Assessment & Plan: continue tamiflu, supportive care Code(s): J10.1 - FLU DUE TO OTH IDENT INFLUENZA VIRUS W OTH RESP MANIFEST (2) COPD exacerbation Current Visit: Yes Status: Acute Assessment & Plan: on IV solu medrol and nebs at this time, will add rocephin due to sputum production Code(s): J44.1 - CHRONIC OBSTRUCTIVE PULMONARY DISEASE W (ACUTE) EXACERBATION
[2017-06-08] MEDS: Glucophage 500 MG PO SCH ×2 (07:48→17:40)
[2017-06-08] MEDS: Tamiflu 75MG Capsule PO SCH ×2 (09:30→22:47)
[2017-06-08] MEDS: ELIQUIS PO SCH ×2 (09:31→22:47)
[2017-06-08] MEDS: Protonix 40MG Tablet PO SCH (09:31)
[2017-06-08] MEDS: Pepcid 20 MG VIAL IV SCH ×2 (09:31→22:47)
[2017-06-08] MEDS ORDERED: ROCEPHIN 1 Gm-D5w 50 ml Bag** 1 G/50 ML IVPB IV SCH (10:00)
[2017-06-09] MEDS: Sodium Chloride 0.9% 1000 ML 1,000 ML IV SCH (02:20)
[2017-06-09] MEDS: DUONEB 0.5-3 MG/3 ml Neb IH SCH ×2 (03:30→06:59)
[2017-06-09] MEDS: solu-MEDROL 125 MG IV SCH (05:43)
[2017-06-09 07:19] VITALS: BP 136/70; PULSE 90; O2SAT 98
--- NOTE | 2017-06-09 07:59 | PCM.DS ---
Discharge Summary Date of Admission: 06/06/17 18:29 Admitting Physician: GORAN GUY Primary Care Provider: IBETH JAEGER Allergies Allergies No Known Drug Allergies Allergy (Verified 06/06/17 16:24) Hospital Summary - Hospital Course Hospital Course: patient was admitted with cough, fever and feeling poorly. found to have +flu A and mild copd exacerbation. treated with tamiflu, IV fluids and IV solu medrol. doing much better today and seems to be back to baseline - Vitals & Intake/Output Vital Signs: Vital Signs Temperature 97.8 F 06/09/17 07:18 Pulse Rate 90 06/09/17 07:18 Respiratory Rate 20 06/09/17 07:18 Blood Pressure 136/70 06/09/17 07:18 O2 Sat by Pulse Oximetry 98 06/09/17 07:18 Oxygen-Last Documented O2 Percentage 5 Liters = 40% Intake & Output: Intake & Output 06/06/17 06/07/17 06/08/17 06/09/17 11:59 11:59 11:59 11:59 Intake Total 1107 4396 3544 Output Total 550 2675 2550 Balance 557 1721 994 Weight 60.917 kg 62.188 kg 62.324 kg - Lab Result Diagrams: 06/08/17 05:35 06/08/17 05:35 - Procedures and Test Procedures and Tests throughout Hospitalization: Therapy Orders & Screens 06/06/17 17:53 Respiratory Therapy Consult ROUTINE Comment: Reason For Exam: Diagnosis: Shortness of Breath 06/06/17 19:00 Respiratory Nebulizer Q4H Comment: DUONEB Q4 HOURS Diagnosis: Influenza A, FUO, Exacerbations COPD 06/06/17 21:55 RT Screen per Nursing Assess ONCE Comment: Protocol Order Physician Instructions: Greater than 3 points order RT Admission Screen Reason For Exam: Triggered on Admission Diagnosis: Influenza A, FUO, Exacerbations COPD Diagnosis: Influenza A, FUO, Exacerbations COPD Pneumonia: No Home O2: Yes Asthma: No CHF: No Home CPAP/BIPAP: No Home Nebs/MDI: Yes Total Points: 10 06/07/17 00:02 Oxygen NASAL CANNULA 5 lpm Comment: Diagnosis: Influenza A, FUO, Exacerbations COPD Discharge Exam General Appearance: no apparent distress, alert Respiratory Exam: lungs clear, diminished breath sounds, prolonged expirations, No respiratory distress Cardiovascular Exam: regular rate/rhythm, normal heart sounds Gastrointestinal/Abdomen Exam: soft, No tenderness, No mass Extremity Exam: normal inspection, normal range of motion Final Diagnosis/Problem List - Final Discharge Diagnosis/Problem (1) Influenza A Current Visit: Yes Status: Acute Assessment & Plan: home on po tamiflu (2) COPD exacerbation Current Visit: Yes Status: Acute - Discharge Disposition: Home, Self-Care Condition: Good Prescriptions: New Budesonide/Formoterol Fumarate [Symbicort 160-4.5 Mcg Inhaler] 2 puffs IH BID #1 hfa.aer.ad Oseltamivir 75 mg [Tamiflu 75MG Capsule] 75 mg PO BID #4 cap Hydrocod Psx/Chlor-Seymour [Tussionex Pennkinetic Susp] 5 ml PO Q12H PRN PRN #120 ml MDD 10 PRN Reason: Cough Continue Albuterol Sulfate [Proair Hfa] 2 puff IH Q4HWA Omeprazole 20 MG [Prilosec 20 mg] 20 mg PO DAILY Metformin HCl 500 mg [Glucophage 500 MG] 500 mg PO BID Apixaban [Eliquis] 5 mg PO BID Ipratropium/Albuterol Sulfate [Iprat-Albut 0.5-3(2.5) mg/3 ml] 3 ml IH Q4H Alprazolam 0.5 mg PO HS PRN PRN #30 tablet PRN Reason: Anxiety Prednisone 20 mg [Deltasone 20 mg] 20 mg PO DAILY #60 tablet Tramadol HCl 50 mg [Ultram 50 mg] 50 mg PO BIDPRN PRN #60 tablet PRN Reason: Pain Follow up with: IBETH JAEGER MD [Primary Care Provider] -
[2017-06-09] MEDS: ELIQUIS PO SCH (08:04)
[2017-06-09] MEDS: Glucophage 500 MG PO SCH (08:04)
[2017-06-09] MEDS: Protonix 40MG Tablet PO SCH (08:04)
[2017-06-09] MEDS: Tamiflu 75MG Capsule PO SCH (08:04)
[2017-06-09] MEDS: Pepcid 20 MG VIAL IV SCH (08:08)
== END 2017-06-09 10:05 | disposition home or self-care (01) | DRG 194 ==
LOC: ED 16:14 → MED SURG 18:29 → OBSVTOIN 18:29
PROVIDERS: ADMIT Internal Medicine; ATTEND Family Medicine
DX: J09.X2 Influenza due to identified novel influenza A virus with other respiratory manifestations (principal); J44.1 Chronic obstructive pulmonary disease with (acute) exacerbation
CPT/HCPCS: 36415; 36600; 71010; 80048; 80053; 81002; 82375; 82803; 83605; 83735; 85025; 85610; 87040; 87086; 87631; 93041; 94150; 94640; 94760; 96360; 96361; 96365; 96372; 96374; 96375; 99285; J0696; J1885; J2930; A9270-GY

== ENCOUNTER 2017-09-13 15:19 | Inpatient (IN) | payer BLACK LUNG, MEDICARE, OTHER ==
[2017-09-13] MEDS ORDERED: xanAX 0.5 MG PO PRN (15:56)
[2017-09-13] MEDS ORDERED: DUONEB 0.5-3 MG/3 ml Neb IH ONE (15:56)
[2017-09-13] MEDS: DUONEB 0.5-3 MG/3 ml Neb IH SCH ×3 (16:00→23:23)
[2017-09-13] MEDS ORDERED: NORCO 5/325 MG PO PRN (16:20)
[2017-09-13] MEDS ORDERED: TYLENOL 325 MG PO PRN (16:20)
[2017-09-13 16:46] LABS: BASOPHIL % 0.4 % (0.0-0.4); Basophil (Absolute #) 0.03 (0-0.4); Eosinophil % 1.5 % (0.00-5.0); Eosinophil (Absolute #) 0.11 (0-0.5); Granulocyte Absolute (ANC) 4.82 (1.4-6.9); Granulocytes % 66.7 % (36.0-66.0); Hematocrit 36.2 % (42-50); Hemoglobin 11.5 gm/dl (12.5-18.0); Lymphocyte (Absolute #) 1.69 (1.0-4.6); Lymphocytes % 23.3 % (24.0-44.0); Mean Corpuscular Hgb Concent. 31.8 g/dl (32-36); Mean Platelet Volume 8.3 fl (6-9.5); Monocyte (Absolute #) 0.59 (0.0-1.3); Monocytes % 8.1 % (0.0-12.0); Platelet Count 301 K/mm3 (150-450); Red Blood Count 3.98 M/mm3 (4.1-5.6); Red Cell Distribution Width 13.3 % (11.5-14.0); White Blood Count 7.2 K/mm3 (4.0-10.5)
--- NOTE | 2017-09-13 16:53 | XRAY ---
Indication: Hypoxia. COPD. Comparison: June 06, 2017. Portable chest unchanged again with hyperinflated lungs, right lung postsurgical changes, bilateral fibrosis/scarring, bibasilar pleural effusion/thickening, osteopenia, and old left rib fractures. Heart is not enlarged. No new/acute findings.
[2017-09-13 16:59] LABS: ALBUMIN 4.3 g/dL (3.5-5.0); ALKALINE PHOSPHATASE 99 U/L (38-126); ANION GAP 13.2 MEQ/L (5-15); BLOOD UREA NITROGEN 27 mg/dL (9-20); CHLORIDE 105 mmol/L (98-107); Calcium 9.8 mg/dL (8.4-10.2); Carbon Dioxide 29 mmol/L (22-30); Creatinine 1 0.96 mg/dL (0.66-1.25); Glucose 107 mg/dL (74-106); Mean Corpuscular Hemoglobin 28.8 pg (26-32); Potassium 4.1 mmol/L (3.5-5.1); SGOT/AST 21 U/L (17-59); SGPT/ALT 13 U/L (0-50); SODIUM 144 mmol/L (137-145); Total Protein 7.5 g/dL (6.3-8.2)
[2017-09-13] MEDS: Sodium Chloride 0.9% 1000 ML 1,000 ML IV SCH (17:57)
[2017-09-13] MEDS: solu-MEDROL 125 MG IV SCH ×2 (18:01→23:19)
[2017-09-13] MEDS: ROCEPHIN 1 Gm-D5w 50 ml Bag** 1 G/50 ML IVPB IV SCH (18:02)
[2017-09-13] MEDS ORDERED: ULTRAM 50 MG PO PRN (18:56)
--- NOTE | 2017-09-13 19:09 | XRAY ---
Indication: Right foot redness and cool to touch 2 weeks. Diabetes. Two-dimensional sonogram and color Doppler imaging of the major arteries of the right leg was performed. Comparison: None Minimal plaquing in the common femoral artery. Remaining deep femoral, superficial femoral, popliteal, posterior tibial, and dorsal pedal arteries are negative for critical stenosis or obstruction. Arterial waveforms are multiphasic throughout the right leg. Right arm brachial pressure is 115 and left arm brachial pressure is 112. Right ankle pressure is 118. Ankle-brachial index is 1.02, normal. Impression: Minimal plaquing in the common femoral artery. Remaining right leg arterial sonogram is negative for critical stenosis/obstruction. Normal ankle brachial index.
[2017-09-13] MEDS: Zithromax 500 MG/ 250 ML NaCl Premix 500 MG/250 ML IVPB IV SCH (19:33)
[2017-09-13] MEDS: ELIQUIS 5 MG TABLET PO SCH (22:17)
[2017-09-13] MEDS: NovoLOG Insulin SQ PRN (23:19)
[2017-09-14] MEDS: DUONEB 0.5-3 MG/3 ml Neb IH SCH ×6 (03:44→23:11)
[2017-09-14] MEDS: solu-MEDROL 125 MG IV SCH ×4 (06:09→23:24)
[2017-09-14] MEDS: Advair Hfa 230/21 Mcg COMMON CANISTER IH SCH ×2 (06:56→18:56)
[2017-09-14] MEDS ORDERED: Tussionex Pennkinetic Susp PO PRN (07:07)
--- NOTE | 2017-09-14 08:32 | PCM.NOTE ---
Date and Time: 09/14/17829 Subjective Assessment: patient thinks his breathing is slightly improved today, tolerating po intake and able to ambulate short distances. Objective Exam General Appearance: no apparent distress, thin Neurologic Exam: alert Skin Exam: normal color, warm, dry Respiratory Exam: prolonged expirations, wheezing Cardiovascular Exam: regular rate/rhythm, normal heart sounds Gastrointestinal/Abdomen Exam: soft, No tenderness, No mass Extremity Exam: normal inspection, normal range of motion OBJECTIVE DATA Vital Signs: Vital Signs - 24 hr Temp Pulse Resp BP Pulse Ox 09/14/17 07:34 97.6 F 82 18 123/65 95 09/14/17 06:59 84 18 95 09/14/17 04:00 97.9 F 87 20 117/65 95 09/14/17 03:44 78 20 98 09/14/17 00:15 97.8 F 76 20 111/62 94 L 09/14/17 00:00 20 09/13/17 23:23 88 20 94 L 09/13/17 20:20 97.8 F 80 20 104/57 95 09/13/17 20:00 20 09/13/17 19:29 78 22 93 L 09/13/17 16:28 98.2 F 86 22 153/75 94 L 09/13/17 16:06 80 22 99 09/13/17 16:03 98.2 F 86 22 153/75 94 L Oxygen-Last 24 hours O2 Percentage 5 Liters = 40% O2 Percentage 5 Liters = 40% O2 Percentage 5 Liters = 40% O2 Percentage 5 Liters = 40% O2 Percentage 5 Liters = 40% O2 Percentage 5 Liters = 40% Pain Assessment - Last Documented Pain Intensity 0 Pain Scale Used FLACC Intake and Output: Intake & Output 09/11/17 09/12/17 09/13/17 09/14/17 11:59 11:59 11:59 11:59 Intake Total 1677 Output Total 650 Balance 1027 Weight 57.8 kg Lab Results: Accuchecks Date 09/13/17 Time 22:00 Accucheck Value: 231 Lab Results-Last 24 Hours 09/13/17 09/13/17 09/13/17 Range/Units 16:15 16:15 16:24 WBC 7.2 (4.0-10.5) K/mm3 RBC 3.98 L (4.1-5.6) M/mm3 Hgb 11.5 L (12.5-18.0) gm/dl Hct 36.2 L (42-50) % MCV 91.0 (78-100) fl MCH 28.8 (26-32) pg MCHC 31.8 L (32-36) g/dl RDW 13.3 (11.5-14.0) % Plt Count 301 (150-450) K/mm3 MPV 8.3 (6-9.5) fl Gran % 66.7 H (36.0-66.0) % Eos # (Auto) 0.11 (0-0.5) Absolute Lymphs (auto) 1.69 (1.0-4.6) Absolute Monos (auto) 0.59 (0.0-1.3) Lymphocytes % 23.3 L (24.0-44.0) % Monocytes % 8.1 (0.0-12.0) % Eosinophils % 1.5 (0.00-5.0) % Basophils % 0.4 (0.0-0.4) % Absolute Granulocytes 4.82 (1.4-6.9) Basophils # 0.03 (0-0.4) Sodium 144 (137-145) mmol/L Potassium 4.1 (3.5-5.1) mmol/L Chloride 105 (98-107) mmol/L Carbon Dioxide 29 (22-30) mmol/L Anion Gap 13.2 (5-15) MEQ/L BUN 27 H (9-20) mg/dL Creatinine 0.96 (0.66-1.25) mg/dL Estimated GFR > 60.0 ML/MIN Glucose 107 H (74-106) mg/dL Lactic Acid 1.4 (0.4-2.0) Calcium 9.8 (8.4-10.2) mg/dL Total Bilirubin 0.30 (0.2-1.3) mg/dL AST 21 (17-59) U/L ALT 13 (0-50) U/L Alkaline Phosphatase 99 (38-126) U/L Serum Total Protein 7.5 (6.3-8.2) g/dL Albumin 4.3 (3.5-5.0) g/dL Radiology Exams: Radiology Procedures Category Date Time Status ARTERIAL UNILAT/LTD LOWER EXT [US] Stat Exams 09/13/17 16:04 Completed CHEST 1 VIEW (PORTABLE) Routine Exams 09/13/17 16:30 Completed Assessment/Plan (1) Acute exacerbation of chronic obstructive pulmonary disease Current Visit: No Status: Acute Assessment & Plan: improved, wean solu medrol to 80mg IV q6hrs Code(s): J44.1 - CHRONIC OBSTRUCTIVE PULMONARY DISEASE W (ACUTE) EXACERBATION (2) Chronic hypoxemic respiratory failure Current Visit: No Status: Chronic (3) End stage COPD Current Visit: No Status: Chronic Code(s): J44.9 - CHRONIC OBSTRUCTIVE PULMONARY DISEASE, UNSPECIFIED (4) Hx pulmonary embolism Current Visit: No Status: Chronic Code(s): Z86.711 - PERSONAL HISTORY OF PULMONARY EMBOLISM
[2017-09-14] MEDS: ELIQUIS 5 MG TABLET PO SCH ×2 (08:57→22:46)
[2017-09-14] MEDS: ROCEPHIN 1 Gm-D5w 50 ml Bag** 1 G/50 ML IVPB IV SCH (08:57)
[2017-09-14] MEDS: Protonix 40MG Tablet PO SCH (08:57)
[2017-09-14] MEDS: Zithromax 500 MG/ 250 ML NaCl Premix 500 MG/250 ML IVPB IV SCH (17:52)
[2017-09-14] MEDS: Sodium Chloride 0.9% 1000 ML 1,000 ML IV SCH (17:52)
[2017-09-14] MEDS: NovoLOG Insulin SQ PRN (22:46)
[2017-09-15] MEDS: DUONEB 0.5-3 MG/3 ml Neb IH SCH ×3 (03:35→11:10)
[2017-09-15] MEDS: solu-MEDROL 125 MG IV SCH ×2 (05:10→12:01)
[2017-09-15 05:50] LABS: BASOPHIL % 0.1 % (0.0-0.4); Basophil (Absolute #) 0.01 (0-0.4); Eosinophil (Absolute #) 0 (0-0.5); Granulocyte Absolute (ANC) 10.26 (1.4-6.9); Granulocytes % 91.2 % (36.0-66.0); Hematocrit 29.4 % (42-50); Hemoglobin 9.5 gm/dl (12.5-18.0); Lymphocyte (Absolute #) 0.77 (1.0-4.6); Lymphocytes % 6.8 % (24.0-44.0); Mean Cell Volume 89.9 fl (78-100); Mean Corpuscular Hgb Concent. 32.3 g/dl (32-36); Mean Platelet Volume 8.6 fl (6-9.5); Monocyte (Absolute #) 0.21 (0.0-1.3); Monocytes % 1.9 % (0.0-12.0); Platelet Count 275 K/mm3 (150-450); Red Blood Count 3.27 M/mm3 (4.1-5.6); Red Cell Distribution Width 13.3 % (11.5-14.0); White Blood Count 11.3 K/mm3 (4.0-10.5)
[2017-09-15 06:05] LABS: ANION GAP 11.6 MEQ/L (5-15); BLOOD UREA NITROGEN 21 mg/dL (9-20); CHLORIDE 109 mmol/L (98-107); Carbon Dioxide 25 mmol/L (22-30); Creatinine 1 0.78 mg/dL (0.66-1.25); Glucose 200 mg/dL (74-106); Potassium 3.6 mmol/L (3.5-5.1); SODIUM 142 mmol/L (137-145)
[2017-09-15] MEDS: Advair Hfa 230/21 Mcg COMMON CANISTER IH SCH ×2 (07:15→10:52)
--- NOTE | 2017-09-15 08:10 | PCM.NOTE ---
Date and Time: 09/15/17 0807 Subjective Assessment: breathing is improved, has severe pain in the epigastrium and lower rib area that is much worse with movement. Objective Exam General Appearance: no apparent distress, alert Skin Exam: normal color, warm, dry Respiratory Exam: normal breath sounds, lungs clear, No respiratory distress Cardiovascular Exam: regular rate/rhythm, normal heart sounds Gastrointestinal/Abdomen Exam: soft, tenderness, No mass Extremity Exam: normal inspection OBJECTIVE DATA Vital Signs: Vital Signs - 24 hr Temp Pulse Resp BP Pulse Ox 09/15/17 04:10 98.2 F 99 H 20 135/77 96 09/15/17 04:00 20 09/15/17 03:00 100 H 20 95 09/15/17 00:00 97.9 F 101 H 20 126/61 97 09/14/17 23:11 98 H 22 97 09/14/17 20:00 98.2 F 100 H 20 129/71 94 L 09/14/17 18:56 100 H 22 94 L 09/14/17 16:10 86 22 95 09/14/17 16:00 98.0 F 84 18 122/65 98 09/14/17 12:00 20 09/14/17 11:36 98 F 84 20 124/74 97 09/14/17 11:15 87 22 97 Oxygen-Last 24 hours O2 Percentage 5 Liters = 40% O2 Percentage 5 Liters = 40% O2 Percentage 5 Liters = 40% O2 Percentage 5 Liters = 40% O2 Percentage 5 Liters = 40% Pain Assessment - Last Documented Pain Intensity 0 Pain Scale Used [facility] Intake and Output: Intake & Output 09/12/17 09/13/17 09/14/17 09/15/17 11:59 11:59 11:59 11:59 Intake Total 1797 2566 Output Total 825 1200 Balance 972 1366 Weight 57.8 kg Lab Results: Accuchecks Date 09/14/17 Time 22:00 Accucheck Value: 237 Accucheck Value: 181 Accucheck Value: 297 Lab Results-Last 24 Hours 09/14/17 09/15/17 09/15/17 Range/Units 07:56 04:58 04:58 WBC 11.3 H (4.0-10.5) K/mm3 RBC 3.27 L (4.1-5.6) M/mm3 Hgb 9.5 L (12.5-18.0) gm/dl Hct 29.4 L (42-50) % MCV 89.9 (78-100) fl MCH 29.0 (26-32) pg MCHC 32.3 (32-36) g/dl RDW 13.3 (11.5-14.0) % Plt Count 275 (150-450) K/mm3 MPV 8.6 (6-9.5) fl Gran % 91.2 H (36.0-66.0) % Eos # (Auto) 0 (0-0.5) Absolute Lymphs (auto) 0.77 L (1.0-4.6) Absolute Monos (auto) 0.21 (0.0-1.3) Lymphocytes % 6.8 L (24.0-44.0) % Monocytes % 1.9 (0.0-12.0) % Eosinophils % 0.0 (0.00-5.0) % Basophils % 0.1 (0.0-0.4) % Absolute Granulocytes 10.26 H (1.4-6.9) Basophils # 0.01 (0-0.4) Sodium 142 (137-145) mmol/L Potassium 3.6 (3.5-5.1) mmol/L Chloride 109 H (98-107) mmol/L Carbon Dioxide 25 (22-30) mmol/L Anion Gap 11.6 (5-15) MEQ/L BUN 21 H (9-20) mg/dL Creatinine 0.78 (0.66-1.25) mg/dL Estimated GFR > 60.0 ML/MIN Glucose 200 H (74-106) mg/dL Hemoglobin A1c 6.62 H (4.5-6.0) % Calcium 9.0 (8.4-10.2) mg/dL Radiology Exams: Radiology Procedures Category Date Time Status ABDOMEN AND PELVIS W/0 CONTRAS [CT] Urgent Exams 09/15/17 08:07 Ordered ARTERIAL UNILAT/LTD LOWER EXT [US] Stat Exams 09/13/17 16:04 Completed CHEST 1 VIEW (PORTABLE) Routine Exams 09/13/17 16:30 Completed Assessment/Plan (1) Acute exacerbation of chronic obstructive pulmonary disease Current Visit: No Status: Acute Assessment & Plan: improved, continue current management Code(s): J44.1 - CHRONIC OBSTRUCTIVE PULMONARY DISEASE W (ACUTE) EXACERBATION (2) Chronic hypoxemic respiratory failure Current Visit: No Status: Chronic (3) End stage COPD Current Visit: No Status: Chronic Code(s): J44.9 - CHRONIC OBSTRUCTIVE PULMONARY DISEASE, UNSPECIFIED (4) Hx pulmonary embolism Current Visit: No Status: Chronic Code(s): Z86.711 - PERSONAL HISTORY OF PULMONARY EMBOLISM (5) Abdominal pain Current Visit: Yes Status: Acute Assessment & Plan: pain in epigastrium, no obvious etiology on exam. will check CT abd/pel Code(s): R10.9 - UNSPECIFIED ABDOMINAL PAIN
[2017-09-15] MEDS: ROCEPHIN 1 Gm-D5w 50 ml Bag** 1 G/50 ML IVPB IV SCH (08:37)
[2017-09-15] MEDS: NovoLOG Insulin SQ PRN ×2 (08:37→12:04)
[2017-09-15] MEDS: ELIQUIS 5 MG TABLET PO SCH (08:37)
[2017-09-15] MEDS: Protonix 40MG Tablet PO SCH (08:37)
[2017-09-15 09:35] VITALS: O2SAT 98
--- NOTE | 2017-09-15 09:59 | XRAY ---
Indication: Abdominal epigastric pain. Multiple contiguous axial images obtained through the abdomen and pelvis without contrast as ordered. Comparison: February 01, 2012. Lung bases demonstrate moderate bibasilar subsegmental atelectasis, worsened on the right and new on the left. Also tiny bibasilar effusions and scattered fibrosis/scarring. Heart is not enlarged. Noncontrasted stomach and bowel loops appear nonobstructed. There is now mild diffuse scattered colonic fecal debris throughout. No free fluid/air. Stable scattered pancreas calcifications presumed from chronic pancreatitis. New non-obstructing punctate left renal calculus with stable 1 cm exophytic cyst. Enlarged prostate gland again impresses on the base of the urinary bladder. Stable calcified splenic granulomas. Remaining liver, gallbladder, pancreas, spleen, adrenal glands, kidneys, ureters, and bladder appear unremarkable for noncontrast exam. Again heavy aortoiliac calcifications without AAA. Osseous structures intact again with mild degenerative changes throughout the spine and old right lower rib fractures. Stable bilateral L5 spondylolysis with grade 1 spondylolisthesis. New minimal superior L1/L2/L3 concave deformities of uncertain chronicity. Impression: 1. Bibasilar subsegmental atelectasis and tiny effusions, worsened on the right and new on the left. 2. Mild fecal stasis without obstruction. 3. New nonobstructing left renal micro-calculus with stable small exophytic cyst. 4. Stable chronic pancreatitis calcifications and enlarged prostate gland. 5. New L1/L2/L3 superior endplate concave deformities of uncertain chronicity. 6. Stable multilevel degenerative spondylosis, old right lower rib fractures, and bilateral L5 spondylolysis with grade [address] DI 10.03
[2017-09-15 11:41] VITALS: BP 114/57; PULSE 87
--- NOTE | 2017-09-15 11:54 | PCM.DS ---
Discharge Summary Date of Admission: 09/13/17 15:27 Admitting Physician: IBETH JAEGER Primary Care Provider: IBETH JAEGER Allergies Allergies No Known Drug Allergies Allergy (Verified 09/13/17 15:51) Hospital Summary - Hospital Course Hospital Course: patient was admitted with cough, shortness of breath and weakness. copd exacerbation, he has endstage copd and requires chronic oxygen. doing better and back to baseline. c/o epigastric/lower chest wall pain but nothing acute on CT scan - Vitals & Intake/Output Vital Signs: Vital Signs Temperature 98.1 F 09/15/17 11:40 Pulse Rate 87 09/15/17 11:40 Respiratory Rate 20 09/15/17 11:40 Blood Pressure 114/57 09/15/17 11:40 O2 Sat by Pulse Oximetry 98 09/15/17 11:40 Oxygen-Last Documented O2 Percentage 5 Liters = 40% Intake & Output: Intake & Output 09/12/17 09/13/17 09/14/17 09/15/17 11:59 11:59 11:59 11:59 Intake Total 1797 2806 Output Total 825 1200 Balance 972 1606 Weight 57.8 kg - Lab Result Diagrams: 09/15/17 04:58 09/15/17 04:58 Lab Results-Last 24 Hrs: Accuchecks Date 09/14/17 Time 22:00 Accucheck Value: 271 Accucheck Value: 216 Accucheck Value: 237 Accucheck Value: 181 Lab Results-Last 24 Hours 09/15/17 09/15/17 Range/Units 04:58 04:58 WBC 11.3 H (4.0-10.5) K/mm3 RBC 3.27 L (4.1-5.6) M/mm3 Hgb 9.5 L (12.5-18.0) gm/dl Hct 29.4 L (42-50) % MCV 89.9 (78-100) fl MCH 29.0 (26-32) pg MCHC 32.3 (32-36) g/dl RDW 13.3 (11.5-14.0) % Plt Count 275 (150-450) K/mm3 MPV 8.6 (6-9.5) fl Gran % 91.2 H (36.0-66.0) % Eos # (Auto) 0 (0-0.5) Absolute Lymphs (auto) 0.77 L (1.0-4.6) Absolute Monos (auto) 0.21 (0.0-1.3) Lymphocytes % 6.8 L (24.0-44.0) % Monocytes % 1.9 (0.0-12.0) % Eosinophils % 0.0 (0.00-5.0) % Basophils % 0.1 (0.0-0.4) % Absolute Granulocytes 10.26 H (1.4-6.9) Basophils # 0.01 (0-0.4) Sodium 142 (137-145) mmol/L Potassium 3.6 (3.5-5.1) mmol/L Chloride 109 H (98-107) mmol/L Carbon Dioxide 25 (22-30) mmol/L Anion Gap 11.6 (5-15) MEQ/L BUN 21 H (9-20) mg/dL Creatinine 0.78 (0.66-1.25) mg/dL Estimated GFR > 60.0 ML/MIN Glucose 200 H (74-106) mg/dL Calcium 9.0 (8.4-10.2) mg/dL Micro Results-Entire Visit: Microbiology 09/13/17 16:15 Blood Culture - Preliminary Blood NO GROWTH TO DATE 09/13/17 16:05 Blood Culture - Preliminary Blood NO GROWTH TO DATE Accuchecks Date 09/14/17 Time 22:00 Accucheck Value: 271 Accucheck Value: 216 Accucheck Value: 237 Accucheck Value: 181 - Radiology Exams Ordered Rad Exams-Entire Visit: Radiology Procedures Category Date Time Status ABDOMEN AND PELVIS W/0 CONTRAS [CT] Urgent Exams 09/15/17 08:07 Completed ARTERIAL UNILAT/LTD LOWER EXT [US] Stat Exams 09/13/17 16:04 Completed CHEST 1 VIEW (PORTABLE) Routine Exams 09/13/17 16:30 Completed - Procedures and Test Procedures and Tests throughout Hospitalization: Therapy Orders & Screens 09/13/17 15:50 Respiratory Nebulizer 1900,2300,0300,0700,1100,1500 Comment: Gwendolyn Diagnosis: COPD exac, hypoxia 09/13/17 16:05 Oxygen NASAL CANNULA 5 lpm Comment: Diagnosis: COPD exac, hypoxia 09/13/17 19:00 Respiratory MDI BID Comment: ADVAIR 230/21 BID Diagnosis: COPD exac, hypoxia Discharge Exam General Appearance: cachetic, thin Skin Exam: normal color, warm, dry Respiratory Exam: prolonged expirations Cardiovascular Exam: regular rate/rhythm, normal heart sounds Gastrointestinal/Abdomen Exam: soft, No tenderness, No mass Extremity Exam: normal inspection, normal range of motion Final Diagnosis/Problem List - Final Discharge Diagnosis/Problem (1) Acute exacerbation of chronic obstructive pulmonary disease Current Visit: No Status: Acute (2) Chronic hypoxemic respiratory failure Current Visit: No Status: Chronic (3) End stage COPD Current Visit: No Status: Chronic (4) Hx pulmonary embolism Current Visit: No Status: Chronic (5) Abdominal pain Current Visit: Yes Status: Acute - Discharge Disposition: Home, Self-Care Condition: Stable Prescriptions: Continue Omeprazole 20 MG [Prilosec 20 mg] 20 mg PO DAILY Metformin HCl 500 mg [Glucophage 500 MG] 500 mg PO BID Apixaban [Eliquis 5 mg Tablet] 5 mg PO BID Ipratropium/Albuterol Sulfate [Iprat-Albut 0.5-3(2.5) mg/3 ml] 3 ml IH Q4H Budesonide/Formoterol Fumarate [Symbicort 160-4.5 Mcg Inhaler] 2 puffs IH BID #1 hfa.aer.ad Hydrocod Psx/Chlor-Seymour [Tussionex Pennkinetic Susp] 5 ml PO Q12H PRN PRN #120 ml MDD 10 PRN Reason: Cough Alprazolam 0.5 mg PO HS PRN PRN #30 tablet PRN Reason: Anxiety Prednisone 20 mg [Deltasone 20 mg] 20 mg PO DAILY #60 tablet Tramadol HCl 50 mg [Ultram 50 mg] 50 mg PO BIDPRN PRN #60 tablet PRN Reason: Pain Additional Instructions: rx was sent from office EMR to [facility] for Murray 5/325 1 po bid prn #30 and Tussionex 5mL po q12 hrs 120mL Follow up with: IBETH JAEGER MD [Primary Care Provider] - 09/22/17 9:45 am
== END 2017-09-15 14:30 | disposition home or self-care (01) | DRG 190 ==
LOC: MED SURG 15:27
PROVIDERS: ADMIT Family Medicine; ATTEND Family Medicine
DX: J44.1 Chronic obstructive pulmonary disease with (acute) exacerbation (principal); J96.91 Respiratory failure, unspecified with hypoxia; Z86.711 Personal history of pulmonary embolism; R10.9 Unspecified abdominal pain; R10.13 Epigastric pain
CPT/HCPCS: 36415; 71045; 74176; 80048; 80053; 82962; 83036; 83605; 85025; 87040; 93926; 94150; 94640; 94760; J0456; J0696; J2930; A9270-GY

== ENCOUNTER 2017-10-12 11:42 | Inpatient (IN) | payer BLACK LUNG, MEDICARE ==
[2017-10-12] MEDS ORDERED: Norco 10/325 MG Tablet PO PRN (12:14)
[2017-10-12] MEDS ORDERED: xanAX 0.5 MG PO PRN (12:14)
[2017-10-12] MEDS ORDERED: solu-MEDROL 125 MG IV SCH (12:30)
--- NOTE | 2017-10-12 13:03 | XRAY ---
Indication: Hypoxia. COPD. Comparison: September 13, 2017. Portable chest demonstrates mild worsening right base infiltrate/atelectasis/effusion. Stable left base pleural effusion/thickening, pulmonary emphysema, bilateral fibrosis/scarring, right lung postsurgical changes, osteopenia, degenerative changes, and old left rib fractures. Heart is not enlarged.
[2017-10-12 13:21] LABS: BASOPHIL % 0.5 % (0.0-0.4); Basophil (Absolute #) 0.03 (0-0.4); Eosinophil % 2.1 % (0.00-5.0); Eosinophil (Absolute #) 0.14 (0-0.5); Granulocyte Absolute (ANC) 4.12 (1.4-6.9); Hemoglobin 12.6 gm/dl (12.5-18.0); Lymphocyte (Absolute #) 1.74 (1.0-4.6); Lymphocytes % 26.2 % (24.0-44.0); Mean Cell Volume 90.7 fl (78-100); Mean Corpuscular Hemoglobin 29.3 pg (26-32); Mean Corpuscular Hgb Concent. 32.3 g/dl (32-36); Mean Platelet Volume 8.3 fl (6-9.5); Monocyte (Absolute #) 0.61 (0.0-1.3); Monocytes % 9.2 % (0.0-12.0); Platelet Count 228 K/mm3 (150-450); White Blood Count 6.6 K/mm3 (4.0-10.5)
[2017-10-12 13:37] LABS: ALBUMIN 4.1 g/dL (3.5-5.0); ALKALINE PHOSPHATASE 115 U/L (38-126); ANION GAP 14.6 MEQ/L (5-15); BLOOD UREA NITROGEN 12 mg/dL (9-20); CHLORIDE 105 mmol/L (98-107); Calcium 9.4 mg/dL (8.4-10.2); Carbon Dioxide 29 mmol/L (22-30); Creatinine 1 0.79 mg/dL (0.66-1.25); Glucose 118 mg/dL (74-106); Potassium 4.3 mmol/L (3.5-5.1); SGOT/AST 19 U/L (17-59); SGPT/ALT 17 U/L (0-50); SODIUM 144 mmol/L (137-145); Total Protein 7.6 g/dL (6.3-8.2)
[2017-10-12] MEDS: ROCEPHIN 1 Gm-D5w 50 ml Bag** 1 G/50 ML IVPB IV SCH (14:55)
[2017-10-12] MEDS: Lactated Ringers 1,000 ML IV SCH (14:55)
[2017-10-12] MEDS ORDERED: solu-MEDROL 125 MG ONE (15:04)
[2017-10-12] MEDS ORDERED: Tussionex Pennkinetic Susp PO PRN (15:47)
[2017-10-12] MEDS ORDERED: MEDICATION INTERVENTION MC SCH (16:00)
[2017-10-12] MEDS ORDERED: DUONEB 0.5-3 MG/3 ml Neb IH ONE (16:10)
[2017-10-12] MEDS: DUONEB 0.5-3 MG/3 ml Neb IH SCH ×3 (16:11→23:10)
[2017-10-12] MEDS: Zithromax 500 MG/ 250 ML NaCl Premix 500 MG/250 ML IVPB IV SCH (16:32)
[2017-10-12] MEDS: Advair Hfa 230/21 Mcg COMMON CANISTER IH SCH (19:16)
[2017-10-12] MEDS: solu-MEDROL 125 MG IV SCH (20:23)
[2017-10-12] MEDS: ELIQUIS 5 MG TABLET PO SCH (21:22)
[2017-10-12] MEDS ORDERED: NON-FORMULARY ITEM (Budesonide/Formoterol Fumarate [Symbicort 160-4.5 Mcg Inhaler] 2 PUFFS IH SCH (22:00)
[2017-10-13] MEDS: solu-MEDROL 125 MG IV SCH ×4 (01:15→18:03)
[2017-10-13] MEDS: DUONEB 0.5-3 MG/3 ml Neb IH SCH ×6 (05:42→23:05)
[2017-10-13] MEDS: Advair Hfa 230/21 Mcg COMMON CANISTER IH SCH ×2 (07:03→18:58)
[2017-10-13] MEDS: Lactated Ringers 1,000 ML IV SCH ×2 (07:12→22:32)
[2017-10-13] MEDS: NovoLOG Insulin SQ PRN ×3 (07:58→22:33)
--- NOTE | 2017-10-13 08:10 | PCM.NOTE ---
Date and Time: 10/13/17 0809 Subjective Assessment: patient reports improvement, doing better with breathing, tolerating po and slept well last night Objective Exam General Appearance: no apparent distress, alert Skin Exam: normal color, warm, dry Respiratory Exam: prolonged expirations, wheezing, No respiratory distress Cardiovascular Exam: regular rate/rhythm, normal heart sounds Gastrointestinal/Abdomen Exam: soft, No tenderness, No mass Extremity Exam: normal inspection, normal range of motion OBJECTIVE DATA Vital Signs: Vital Signs - 24 hr Temp Pulse Resp BP Pulse Ox 10/13/17 07:00 75 18 96 10/13/17 04:00 97.8 F 77 20 141/83 96 10/13/17 00:00 98.1 F 80 20 139/77 98 10/12/17 23:00 80 20 98 10/12/17 20:00 97.9 F 73 18 120/72 98 10/12/17 19:20 77 18 96 10/12/17 16:19 72 20 97 10/12/17 16:00 98.2 F 74 20 114/60 95 10/12/17 12:11 98 F 76 22 149/80 95 10/12/17 11:58 98 F 76 18 149/80 95 Oxygen-Last 24 hours O2 Percentage 5 Liters = 40% O2 Percentage 5 Liters = 40% O2 Percentage 5 Liters = 40% O2 Percentage 5 Liters = 40% Oxygen Flowrate (L/min)-RT 5 Oxygen Flowrate (L/min)-RT 5 Pain Assessment - Last Documented Pain Scale Used [facility] Intake and Output: Intake & Output 10/10/17 10/11/17 10/12/17 10/13/17 11:59 11:59 11:59 11:59 Intake Total 1978 Output Total 1025 Balance 953 Weight 58.7 kg Lab Results: Accuchecks Date 10/13/17 Date 10/13/17 Date 10/12/17 Time 07:30 Time 07:30 Time 22:00 Accucheck Value: 210 Accucheck Value: 210 Accucheck Value: 161 Accucheck Value: 162 Lab Results-Last 24 Hours 10/12/17 10/12/17 Range/Units 13:10 13:10 WBC 6.6 (4.0-10.5) K/mm3 RBC 4.30 (4.1-5.6) M/mm3 Hgb 12.6 (12.5-18.0) gm/dl Hct 39.0 L (42-50) % MCV 90.7 (78-100) fl MCH 29.3 (26-32) pg MCHC 32.3 (32-36) g/dl RDW 14.0 (11.5-14.0) % Plt Count 228 (150-450) K/mm3 MPV 8.3 (6-9.5) fl Gran % 62.0 (36.0-66.0) % Eos # (Auto) 0.14 (0-0.5) Absolute Lymphs (auto) 1.74 (1.0-4.6) Absolute Monos (auto) 0.61 (0.0-1.3) Lymphocytes % 26.2 (24.0-44.0) % Monocytes % 9.2 (0.0-12.0) % Eosinophils % 2.1 (0.00-5.0) % Basophils % 0.5 (0.0-0.4) % Absolute Granulocytes 4.12 (1.4-6.9) Basophils # 0.03 (0-0.4) Sodium 144 (137-145) mmol/L Potassium 4.3 (3.5-5.1) mmol/L Chloride 105 (98-107) mmol/L Carbon Dioxide 29 (22-30) mmol/L Anion Gap 14.6 (5-15) MEQ/L BUN 12 (9-20) mg/dL Creatinine 0.79 (0.66-1.25) mg/dL Estimated GFR > 60.0 ML/MIN Glucose 118 H (74-106) mg/dL Calcium 9.4 (8.4-10.2) mg/dL Magnesium 2.0 (1.6-2.3) mg/dL Total Bilirubin 0.60 (0.2-1.3) mg/dL AST 19 (17-59) U/L ALT 17 (0-50) U/L Alkaline Phosphatase 115 (38-126) U/L Serum Total Protein 7.6 (6.3-8.2) g/dL Albumin 4.1 (3.5-5.0) g/dL Radiology Exams: Radiology Procedures Category Date Time Status CHEST 1 VIEW (PORTABLE) Routine Exams 10/12/17 12:30 Completed Assessment/Plan (1) Acute exacerbation of chronic obstructive airways disease Current Visit: Yes Status: Acute Onset Date: ~10/12/17 Assessment & Plan: doing better today, not quite to baseline but much closer today. might be ready for discharge tomorrow. has rx sent from office to [facility] for his hydrocodone and xanax. Code(s): J44.1 - CHRONIC OBSTRUCTIVE PULMONARY DISEASE W (ACUTE) EXACERBATION (2) Dehydration Current Visit: Yes Status: Acute Onset Date: ~10/12/17 Code(s): E86.0 - DEHYDRATION (3) Chronic hypoxemic respiratory failure Current Visit: No Status: Chronic
[2017-10-13] MEDS: Zithromax 500 MG/ 250 ML NaCl Premix 500 MG/250 ML IVPB IV SCH (09:22)
[2017-10-13] MEDS: ELIQUIS 5 MG TABLET PO SCH ×2 (09:22→22:33)
[2017-10-13] MEDS: Protonix 40MG Tablet PO SCH (09:22)
[2017-10-13] MEDS: ROCEPHIN 1 Gm-D5w 50 ml Bag** 1 G/50 ML IVPB IV SCH (09:22)
[2017-10-13] MEDS: xanAX 0.5 MG PO PRN (22:33)
[2017-10-14] MEDS: solu-MEDROL 125 MG IV SCH ×5 (01:01→23:41)
[2017-10-14] MEDS: DUONEB 0.5-3 MG/3 ml Neb IH SCH ×6 (03:16→23:42)
[2017-10-14] MEDS: Norco 10/325 MG Tablet PO PRN ×2 (04:31→20:48)
[2017-10-14] MEDS: Advair Hfa 230/21 Mcg COMMON CANISTER IH SCH ×2 (06:53→19:13)
[2017-10-14] MEDS: Protonix 40MG Tablet PO SCH (08:01)
[2017-10-14] MEDS: ELIQUIS 5 MG TABLET PO SCH ×2 (08:01→20:42)
[2017-10-14] MEDS: Zithromax 500 MG/ 250 ML NaCl Premix 500 MG/250 ML IVPB IV SCH (08:01)
[2017-10-14] MEDS: NovoLOG Insulin SQ PRN ×3 (08:02→20:42)
[2017-10-14] MEDS: ROCEPHIN 1 Gm-D5w 50 ml Bag** 1 G/50 ML IVPB IV SCH (10:09)
[2017-10-14] MEDS ORDERED: Sodium Chloride 0.9% 1000 ML 1,000 ML ONE (11:49)
[2017-10-14] MEDS ORDERED: Colace 100 MG PO PRN (12:03)
--- NOTE | 2017-10-14 12:07 | PCM.NOTE ---
Date and Time: 10/14/17 1203 Subjective Assessment: Still having some increased SOB over his baseline. Lucero po well. Having some constipation. - Review of Systems Constitutional: No Fever Respiratory: Short Of Breath Abdominal/Gastrointestinal: Constipation Objective Exam General Appearance: no apparent distress, alert Neurologic Exam: oriented x 3, cooperative Skin Exam: normal color, warm, dry, No rash Respiratory Exam: diminished breath sounds (fair A/E), prolonged expirations, rhonchi (bilat bases), wheezing (occasional) Cardiovascular Exam: regular rate/rhythm, normal heart sounds, No murmur Gastrointestinal/Abdomen Exam: soft, normal bowel sounds, distention, No tenderness, No guarding, No rebound Extremity Exam: No pedal edema, No swelling OBJECTIVE DATA Vital Signs: Vital Signs - 24 hr Temp Pulse Resp BP Pulse Ox 10/14/17 11:36 98.0 F 80 18 138/67 98 10/14/17 11:10 77 20 96 10/14/17 08:00 18 10/14/17 07:17 98.1 F 76 18 123/59 97 10/14/17 06:56 76 20 96 10/14/17 04:00 98.0 F 81 21 132/63 98 10/14/17 03:16 81 21 98 10/14/17 00:00 98.0 F 87 20 112/57 96 10/13/17 23:05 79 20 98 10/13/17 20:00 97.9 F 85 18 122/69 100 10/13/17 18:53 89 22 97 10/13/17 16:40 98 F 80 18 140/80 97 10/13/17 16:00 18 10/13/17 15:00 88 18 98 Oxygen-Last 24 hours O2 Percentage 5 Liters = 40% O2 Percentage 5 Liters = 40% O2 Percentage 5 Liters = 40% O2 Percentage 5 Liters = 40% O2 Percentage 5 Liters = 40% Pain Assessment - Last Documented Pain Intensity 5 Pain Scale Used [facility] Intake and Output: Intake & Output 10/12/17 10/13/17 10/14/17 10/15/17 11:59 11:59 11:59 11:59 Intake Total 5214 5461 Output Total 9570 7750 Balance 3339 4661 Weight 58.7 kg 58.7 kg Lab Results: Accuchecks Date 10/14/17 Date 10/13/17 Date 10/13/17 Time 07:30 Time 20:30 Time 16:30 Accucheck Value: 211 Accucheck Value: 280 Accucheck Value: 183 Radiology Exams: Radiology Procedures Category Date Time Status CHEST 1 VIEW (PORTABLE) Routine Exams 10/12/17 12:30 Completed Assessment/Plan (1) Acute exacerbation of chronic obstructive airways disease Current Visit: Yes Status: Acute Onset Date: ~10/12/17 Assessment & Plan: Improved but still not back to baseline for him. Recheck in a.m. On Day #3 rocephin and zithromax IV. Code(s): J44.1 - CHRONIC OBSTRUCTIVE PULMONARY DISEASE W (ACUTE) EXACERBATION (2) Dehydration Current Visit: Yes Status: Resolved Onset Date: ~10/12/17 Code(s): E86.0 - DEHYDRATION (3) Chronic hypoxemic respiratory failure Current Visit: No Status: Chronic
[2017-10-14] MEDS: Sodium Chloride 0.9% 1000 ML 1,000 ML IV SCH (13:11)
[2017-10-14] MEDS: xanAX 0.5 MG PO PRN (20:47)
[2017-10-15] MEDS: DUONEB 0.5-3 MG/3 ml Neb IH SCH ×3 (03:32→10:36)
[2017-10-15] MEDS: Sodium Chloride 0.9% 1000 ML 1,000 ML IV SCH (04:41)
[2017-10-15 05:45] LABS: Hematocrit 32.1 % (42-50); Hemoglobin 10.1 gm/dl (12.5-18.0); Mean Cell Volume 91.2 fl (78-100); Mean Corpuscular Hgb Concent. 31.5 g/dl (32-36); Mean Platelet Volume 8.5 fl (6-9.5); Platelet Count 281 K/mm3 (150-450); Red Blood Count 3.52 M/mm3 (4.1-5.6); Red Cell Distribution Width 14.2 % (11.5-14.0); White Blood Count 15.9 K/mm3 (4.0-10.5)
[2017-10-15 06:03] LABS: ANION GAP 11.4 MEQ/L (5-15); BLOOD UREA NITROGEN 22 mg/dL (9-20); CHLORIDE 106 mmol/L (98-107); Calcium 8.9 mg/dL (8.4-10.2); Carbon Dioxide 26 mmol/L (22-30); Creatinine 1 0.69 mg/dL (0.66-1.25); Glucose 259 mg/dL (74-106); SODIUM 140 mmol/L (137-145)
[2017-10-15 06:04] LABS: Mean Corpuscular Hemoglobin 28.6 pg (26-32)
[2017-10-15] MEDS: solu-MEDROL 125 MG IV SCH (06:16)
[2017-10-15 06:27] LABS: BAND 3 % (0.0-2.0); Lymphocytes 4 % (24-44); Monocyte 1 % (0.0-12.0); Neutrophils 92 % (36.-66.); Total Cells Counted 100
[2017-10-15 06:28] LABS: Hypochromia 1+; Platelet Estimate NORMAL (NORMAL); Polychromasia 1+
[2017-10-15] MEDS: Advair Hfa 230/21 Mcg COMMON CANISTER IH SCH (07:00)
[2017-10-15] MEDS: Protonix 40MG Tablet PO SCH (07:53)
[2017-10-15] MEDS: ELIQUIS 5 MG TABLET PO SCH (07:54)
[2017-10-15] MEDS: NovoLOG Insulin SQ PRN (07:54)
[2017-10-15] MEDS: ROCEPHIN 1 Gm-D5w 50 ml Bag** 1 G/50 ML IVPB IV SCH (07:54)
[2017-10-15] MEDS: Zithromax 500 MG/ 250 ML NaCl Premix 500 MG/250 ML IVPB IV SCH (09:51)
--- NOTE | 2017-10-15 10:06 | PCM.DS ---
Discharge Summary Date of Admission: 10/12/17 11:53 Admitting Physician: IBETH JAEGER Primary Care Provider: IBETH JAEGER Allergies Allergies No Known Drug Allergies Allergy (Verified 09/13/17 15:51) Hospital Summary - Hospital Course Hospital Course: Pt with chronic COPD/black lung here for exacerbation. On rocephin day #4; stopping zithromax today (has had 3d of zithromax). On IV solumedrol 80mg q6h. He was still somewhat short of breath compared to baseline yesterday; feeling better today. Lucero po, stooling fine and urinating. He is back to his baseline O2 which is 5L NC. - Vitals & Intake/Output Vital Signs: Vital Signs Temperature 97.6 F 10/15/17 07:28 Pulse Rate 74 10/15/17 07:28 Respiratory Rate 20 10/15/17 07:28 Blood Pressure 137/67 10/15/17 07:28 O2 Sat by Pulse Oximetry 96 10/15/17 07:28 Oxygen-Last Documented O2 Percentage 5 Liters = 40% Intake & Output: Intake & Output 10/12/17 10/13/17 10/14/17 10/15/17 11:59 11:59 11:59 11:59 Intake Total 5214 5461 3980 Output Total 1875 3100 2650 Balance 3339 2361 1330 Weight 58.7 kg 58.7 kg - Lab Result Diagrams: 10/15/17 05:15 10/15/17 05:05 Lab Results-Last 24 Hrs: Accuchecks Date 10/14/17 Date 10/14/17 Date 10/14/17 Time 16:30 Time 11:30 Accucheck Value: 249 Accucheck Value: 183 Accucheck Value: 286 Lab Results-Last 24 Hours 10/15/17 10/15/17 Range/Units 05:05 05:15 WBC 15.9 H (4.0-10.5) K/mm3 RBC 3.52 L (4.1-5.6) M/mm3 Hgb 10.1 L (12.5-18.0) gm/dl Hct 32.1 L (42-50) % MCV 91.2 (78-100) fl MCH 28.6 (26-32) pg MCHC 31.5 L (32-36) g/dl RDW 14.2 H (11.5-14.0) % Plt Count 281 (150-450) K/mm3 MPV 8.5 (6-9.5) fl Absolute Granulocytes 14.90 H (1.4-6.9) Segmented Neutrophils 92 H (36.-66.) % Band Neutrophils 3 H (0.0-2.0) % Lymphocytes (Manual) 4 L (24-44) % Monocytes (Manual) 1 (0.0-12.0) % Hypochromia 1+ Platelet Estimate NORMAL (NORMAL) RBC Morphology ABNORMAL Polychromasia 1+ Sodium 140 (137-145) mmol/L Potassium 4.0 (3.5-5.1) mmol/L Chloride 106 (98-107) mmol/L Carbon Dioxide 26 (22-30) mmol/L Anion Gap 11.4 (5-15) MEQ/L BUN 22 H (9-20) mg/dL Creatinine 0.69 (0.66-1.25) mg/dL Estimated GFR > 60.0 ML/MIN Glucose 259 H (74-106) mg/dL Calcium 8.9 (8.4-10.2) mg/dL Micro Results-Entire Visit: Accuchecks Date 10/14/17 Date 10/14/17 Date 10/14/17 Time 16:30 Time 11:30 Accucheck Value: 249 Accucheck Value: 183 Accucheck Value: 286 - Procedures and Test Procedures and Tests throughout Hospitalization: Therapy Orders & Screens 10/12/17 16:18 Oxygen NASAL CANNULA 5 lpm Comment: Diagnosis: Exacerbation of COPD, Dehydration 10/12/17 19:00 Respiratory MDI BID Comment: ADV 230/21 BID Diagnosis: Exacerbation of COPD, Dehydration Respiratory Nebulizer Q4H Comment: DUONEB Q4 Diagnosis: Exacerbation of COPD, Dehydration Discharge Exam General Appearance: no apparent distress, alert Neurologic Exam: oriented x 3, cooperative Skin Exam: normal color, warm, dry, No rash Final Diagnosis/Problem List - Final Discharge Diagnosis/Problem (1) Acute exacerbation of chronic obstructive airways disease Current Visit: Yes Status: Acute Onset Date: ~10/12/17 Assessment & Plan: On rocephin day #4 and finished 3d of zithromax. on solumedrol 80mg IV q6h. Home on augmentin and prednisone. On 5L NC. (2) Dehydration Current Visit: Yes Status: Resolved Onset Date: ~10/12/17 (3) Chronic hypoxemic respiratory failure Current Visit: No Status: Chronic - Discharge Disposition: Home, Self-Care Condition: Stable Prescriptions: New Amoxicillin/Potassium Clav [Augmentin 875-125 Tablet] 875 mg PO BID #14 tablet predniSONE [Prednisone] 20 mg PO DAILY #17 tablet Continue Omeprazole 20 MG [Prilosec 20 mg] 20 mg PO DAILY Metformin HCl 500 mg [Glucophage 500 MG] 500 mg PO BID Apixaban [Eliquis 5 mg Tablet] 5 mg PO BID Ipratropium/Albuterol Sulfate [Iprat-Albut 0.5-3(2.5) mg/3 ml] 3 ml IH Q4H Budesonide/Formoterol Fumarate [Symbicort 160-4.5 Mcg Inhaler] 2 puffs IH BID #1 hfa.aer.ad Hydrocod Psx/Chlor-[place] [Tussionex Pennkinetic Susp] 5 ml PO Q12H PRN PRN #120 ml MDD 10 PRN Reason: Cough Alprazolam 0.5 mg PO HS PRN PRN #30 tablet PRN Reason: Anxiety Prednisone 20 mg [Deltasone 20 mg] 20 mg PO DAILY #60 tablet Hydrocodone/APAP 10/325 mg [[place] 10/325 MG Tablet] 1 tab PO Q4H PRN PRN PRN Reason: Pain Follow up with: IBETH JAEGER MD [Primary Care Provider] - 1 Week
[2017-10-15 11:50] VITALS: BP 142/78; PULSE 92; O2SAT 99
== END 2017-10-15 11:55 | disposition home or self-care (01) | DRG 191 ==
LOC: MED SURG 11:53
PROVIDERS: ADMIT Family Medicine; ATTEND Family Medicine
DX: J44.1 Chronic obstructive pulmonary disease with (acute) exacerbation (principal); J96.11 Chronic respiratory failure with hypoxia; E86.0 Dehydration; E11.9 Type 2 diabetes mellitus without complications; Z79.4 Long term (current) use of insulin; F41.9 Anxiety disorder, unspecified; Z86.711 Personal history of pulmonary embolism; K21.9 Gastro-esophageal reflux disease without esophagitis; M79.1 Myalgia; Z79.01 Long term (current) use of anticoagulants; Z79.899 Other long term (current) drug therapy
CPT/HCPCS: 36415; 71045; 80048; 80053; 83735; 85025; 94150; 94640; 94760; J0456; J0696; J2930; A9270-GY

== ENCOUNTER 2017-11-02 14:01 | Inpatient (IN) | payer BLACK LUNG, MEDICARE ==
[2017-11-02] MEDS ORDERED: DUONEB 0.5-3 MG/3 ml Neb IH ONE (14:21)
[2017-11-02] MEDS: DUONEB 0.5-3 MG/3 ml Neb IH SCH ×2 (14:30→19:14)
[2017-11-02 14:32] LABS: BASOPHIL % 0.3 % (0.0-0.4); Basophil (Absolute #) 0.03 (0-0.4); Eosinophil % 2.5 % (0.00-5.0); Eosinophil (Absolute #) 0.22 (0-0.5); Granulocyte Absolute (ANC) 5.76 (1.4-6.9); Hematocrit 35.6 % (42-50); Hemoglobin 11.3 gm/dl (12.5-18.0); Lymphocyte (Absolute #) 2.11 (1.0-4.6); Lymphocytes % 23.8 % (24.0-44.0); Mean Corpuscular Hemoglobin 28.9 pg (26-32); Mean Corpuscular Hgb Concent. 31.7 g/dl (32-36); Mean Platelet Volume 8.1 fl (6-9.5); Monocyte (Absolute #) 0.74 (0.0-1.3); Monocytes % 8.4 % (0.0-12.0); Platelet Count 198 K/mm3 (150-450); Red Blood Count 3.91 M/mm3 (4.1-5.6); Red Cell Distribution Width 14.2 % (11.5-14.0); White Blood Count 8.9 K/mm3 (4.0-10.5)
[2017-11-02] MEDS ORDERED: MORPHINE SULFATE 4 MG INJ IV PRN (14:44)
[2017-11-02] MEDS ORDERED: Zofran 4 MG/2 ML VIAL IV PRN (14:44)
[2017-11-02 14:48] LABS: ALBUMIN 3.7 g/dL (3.5-5.0); ALKALINE PHOSPHATASE 102 U/L (38-126); AMYLASE 94 U/L (30-110); ANION GAP 13.1 MEQ/L (5-15); BLOOD UREA NITROGEN 18 mg/dL (9-20); CHLORIDE 107 mmol/L (98-107); Calcium 9.2 mg/dL (8.4-10.2); Carbon Dioxide 30 mmol/L (22-30); Creatinine 1 0.87 mg/dL (0.66-1.25); Glucose 92 mg/dL (74-106); LIPASE 81 U/L (23-300); Potassium 4.4 mmol/L (3.5-5.1); SGOT/AST 27 U/L (17-59); SGPT/ALT 19 U/L (0-50); SODIUM 146 mmol/L (137-145); Total Protein 6.3 g/dL (6.3-8.2)
[2017-11-02] MEDS: Sodium Chloride 0.9% 1000 ML 1,000 ML IV SCH (15:04)
[2017-11-02] MEDS: Zithromax 500 MG/ 250 ML NaCl Premix 500 MG/250 ML IVPB IV SCH (15:36)
[2017-11-02] MEDS: solu-MEDROL 125 MG IV SCH ×2 (15:36→23:41)
[2017-11-02] MEDS: ROCEPHIN 1 Gm-D5w 50 ml Bag** 1 G/50 ML IVPB IV SCH (15:36)
--- NOTE | 2017-11-02 15:38 | XRAY ---
Indication: COPD exacerbation. Comparison: October 12, 2017. Portable chest again demonstrates bibasilar pleural parenchymal opacities, slightly improved on the right. Heart is not enlarged. Stable COPD, bilateral fibrosis/scarring, right lung postsurgical changes, osteopenia, degenerative changes, and old bilateral rib fractures. No new abnormalities.
--- NOTE | 2017-11-02 15:39 | XRAY ---
Indication: Abdomen pain. Possible small bowel obstruction. Multiple contiguous axial images obtained through the abdomen and pelvis without contrast as ordered. Comparison: September 15, 2017. Lung bases demonstrates stable moderate bibasilar subsegmental atelectasis, scattered fibrosis/scarring, and tiny bibasilar effusions. Heart is not enlarged. Noncontrasted stomach and bowel loops appear nonobstructed. Again mild diffuse scattered colonic fecal debris throughout but less than before. Stable calcified splenic granulomas, chronic pancreatitis calcifications, nonobstructing left renal micro-calculus, small exophytic left renal cyst, and enlarged prostate gland. Remaining liver, gallbladder, pancreas, spleen, adrenal glands, kidneys, ureters, and bladder appear unremarkable for noncontrast exam. Stable heavy aortoiliac calcifications. Osseous structures demonstrate stable osteopenia, multilevel degenerative spondylosis, minimal multilevel thoracolumbar concave deformities, bilateral L5 spondylolysis with grade 1 spondylolisthesis, and old right lower rib fractures. Impression: 1. Again mild fecal stasis without obstruction, less than before. 2. Stable chronic pancreatic calcifications, nonobstructing left renal micro-calculus, left renal cyst, and enlarged prostate gland. 3. No new or acute intra-abdominal/pelvic abnormalities on this noncontrast exam. 4. Stable chronic bony findings detailed above. 5. Stable bibasilar atelectasis, effusions, and fibrosis/scarring. CT DI 10.05
[2017-11-02] MEDS: Advair Hfa 230/21 Mcg COMMON CANISTER IH SCH (19:14)
[2017-11-02] MEDS: ELIQUIS 5 MG TABLET PO SCH (21:42)
[2017-11-02] MEDS ORDERED: Tussionex Pennkinetic Susp PO PRN (22:00)
[2017-11-02] MEDS: Norco 10/325 MG Tablet PO PRN (22:07)
[2017-11-02] MEDS: xanAX 0.5 MG PO PRN (22:07)
[2017-11-03] MEDS: DUONEB 0.5-3 MG/3 ml Neb IH SCH ×7 (03:30→22:54)
[2017-11-03] MEDS: solu-MEDROL 125 MG IV SCH ×4 (05:52→23:28)
[2017-11-03] MEDS: Sodium Chloride 0.9% 1000 ML 1,000 ML IV SCH ×2 (06:09→23:28)
[2017-11-03] MEDS: Advair Hfa 230/21 Mcg COMMON CANISTER IH SCH ×2 (06:30→18:56)
--- NOTE | 2017-11-03 08:42 | PCM.NOTE ---
Date and Time: 11/03/17 0840 Subjective Assessment: patient feeling better today, abdomen still feels distended but improved and eating well with no difficulty. Objective Exam General Appearance: no apparent distress, alert, cachetic, thin Neurologic Exam: alert Skin Exam: normal color, warm, dry Respiratory Exam: prolonged expirations, No crackles/rales, No rhonchi Cardiovascular Exam: regular rate/rhythm, normal heart sounds Gastrointestinal/Abdomen Exam: soft, distention, No tenderness, No mass Extremity Exam: normal inspection, normal range of motion OBJECTIVE DATA Vital Signs: Vital Signs - 24 hr Temp Pulse Resp BP Pulse Ox 11/03/17 07:00 97.8 F 82 20 105/67 98 11/03/17 06:34 72 18 95 11/03/17 03:00 97.8 F 80 18 98/55 98 11/02/17 23:00 98.0 F 88 17 89/50 95 11/02/17 19:59 98.2 F 80 17 120/72 97 11/02/17 19:00 85 20 97 11/02/17 15:18 98.4 F 90 24 121/64 90 L 11/02/17 14:36 98 H 20 94 L 11/02/17 14:12 90 24 121/64 89 L 11/02/17 14:06 98 H 20 121/64 94 L Oxygen-Last 24 hours O2 Percentage 5 Liters = 40% O2 Percentage 5 Liters = 40% O2 Percentage 5 Liters = 40% O2 Percentage 5 Liters = 40% O2 Percentage 5 Liters = 40% O2 Percentage 5 Liters = 40% Oxygen Flowrate (L/min)-RT 5 Pain Assessment - Last Documented Pain Intensity 3 Pain Scale Used 0-10 Pain Scale Intake and Output: Intake & Output 10/31/17 11/01/17 11/02/17 11/03/17 11:59 11:59 11:59 11:59 Intake Total 2011 Output Total 1000 Balance 1012 Weight 59.3 kg Lab Results: Accuchecks Date 11/02/17 Date 11/02/17 Time 16:30 Accucheck Value: 192 Accucheck Value: 111 Lab Results-Last 24 Hours 11/02/17 11/02/17 Range/Units 14:31 14:31 WBC 8.9 (4.0-10.5) K/mm3 RBC 3.91 L (4.1-5.6) M/mm3 Hgb 11.3 L (12.5-18.0) gm/dl Hct 35.6 L (42-50) % MCV 91.0 (78-100) fl MCH 28.9 (26-32) pg MCHC 31.7 L (32-36) g/dl RDW 14.2 H (11.5-14.0) % Plt Count 198 (150-450) K/mm3 MPV 8.1 (6-9.5) fl Gran % 65.0 (36.0-66.0) % Eos # (Auto) 0.22 (0-0.5) Absolute Lymphs (auto) 2.11 (1.0-4.6) Absolute Monos (auto) 0.74 (0.0-1.3) Lymphocytes % 23.8 L (24.0-44.0) % Monocytes % 8.4 (0.0-12.0) % Eosinophils % 2.5 (0.00-5.0) % Basophils % 0.3 (0.0-0.4) % Absolute Granulocytes 5.76 (1.4-6.9) Basophils # 0.03 (0-0.4) Sodium 146 H (137-145) mmol/L Potassium 4.4 (3.5-5.1) mmol/L Chloride 107 (98-107) mmol/L Carbon Dioxide 30 (22-30) mmol/L Anion Gap 13.1 (5-15) MEQ/L BUN 18 (9-20) mg/dL Creatinine 0.87 (0.66-1.25) mg/dL Estimated GFR > 60.0 ML/MIN Glucose 92 (74-106) mg/dL Calcium 9.2 (8.4-10.2) mg/dL Total Bilirubin 0.30 (0.2-1.3) mg/dL AST 27 (17-59) U/L ALT 19 (0-50) U/L Alkaline Phosphatase 102 (38-126) U/L Serum Total Protein 6.3 (6.3-8.2) g/dL Albumin 3.7 (3.5-5.0) g/dL Amylase 94 (30-110) U/L Lipase 81 (23-300) U/L Radiology Exams: Radiology Procedures Category Date Time Status ABDOMEN AND PELVIS W/0 CONTRAS [CT] Routine Exams 11/02/17 15:00 Completed CHEST 1 VIEW (PORTABLE) Routine Exams 11/02/17 15:24 Completed Assessment/Plan (1) Acute exacerbation of chronic obstructive airways disease Current Visit: No Status: Acute Onset Date: ~10/12/17 Assessment & Plan: improved on IV rocephin and zithromax, nearly back to his baseline. likely will be ready to discharge tomorrow on prednisone taper and PO abx, recommend omnicef and prednisone taper. patient has oxygen supply/neb solution etc Code(s): J44.1 - CHRONIC OBSTRUCTIVE PULMONARY DISEASE W (ACUTE) EXACERBATION (2) Chronic hypoxemic respiratory failure Current Visit: No Status: Chronic (3) End stage COPD Current Visit: No Status: Chronic Code(s): J44.9 - CHRONIC OBSTRUCTIVE PULMONARY DISEASE, UNSPECIFIED (4) Hx pulmonary embolism Current Visit: No Status: Chronic Code(s): Z86.711 - PERSONAL HISTORY OF PULMONARY EMBOLISM
[2017-11-03] MEDS: PROTONIX 40 MG IV IV SCH (08:59)
[2017-11-03] MEDS: NovoLOG Insulin SQ PRN ×4 (08:59→21:26)
[2017-11-03] MEDS: ROCEPHIN 1 Gm-D5w 50 ml Bag** 1 G/50 ML IVPB IV SCH (08:59)
[2017-11-03] MEDS: ELIQUIS 5 MG TABLET PO SCH ×2 (08:59→21:26)
[2017-11-03] MEDS ORDERED: NON-FORMULARY ITEM (Omeprazole 20 Mg [Prilosec 20 Mg] 20 MG) PO SCH (10:00)
[2017-11-03] MEDS: Zithromax 500 MG/ 250 ML NaCl Premix 500 MG/250 ML IVPB IV SCH (10:13)
[2017-11-03] MEDS: xanAX 0.5 MG PO PRN (22:30)
[2017-11-03] MEDS: Norco 10/325 MG Tablet PO PRN (22:30)
[2017-11-04] MEDS: DUONEB 0.5-3 MG/3 ml Neb IH SCH ×6 (03:55→22:52)
[2017-11-04] MEDS: solu-MEDROL 125 MG IV SCH ×3 (05:26→22:09)
[2017-11-04 06:18] LABS: BASOPHIL % 0.1 % (0.0-0.4); Basophil (Absolute #) 0.01 (0-0.4); Eosinophil (Absolute #) 0 (0-0.5); Granulocyte Absolute (ANC) 14.03 (1.4-6.9); Granulocytes % 94.5 % (36.0-66.0); Hematocrit 29.1 % (42-50); Hemoglobin 9.5 gm/dl (12.5-18.0); Lymphocyte (Absolute #) 0.54 (1.0-4.6); Lymphocytes % 3.6 % (24.0-44.0); Mean Cell Volume 90.7 fl (78-100); Mean Corpuscular Hgb Concent. 32.6 g/dl (32-36); Mean Platelet Volume 8.7 fl (6-9.5); Monocyte (Absolute #) 0.27 (0.0-1.3); Monocytes % 1.8 % (0.0-12.0); Platelet Count 212 K/mm3 (150-450); Red Blood Count 3.21 M/mm3 (4.1-5.6); Red Cell Distribution Width 14.3 % (11.5-14.0); White Blood Count 14.9 K/mm3 (4.0-10.5)
[2017-11-04 06:32] LABS: Mean Corpuscular Hemoglobin 29.5 pg (26-32)
[2017-11-04 06:40] LABS: BLOOD UREA NITROGEN 20 mg/dL (9-20); CHLORIDE 110 mmol/L (98-107); Calcium 8.6 mg/dL (8.4-10.2); Carbon Dioxide 25 mmol/L (22-30); Creatinine 1 0.84 mg/dL (0.66-1.25); Glucose 289 mg/dL (74-106); Potassium 4.2 mmol/L (3.5-5.1); SODIUM 141 mmol/L (137-145)
[2017-11-04 07:12] LABS: Slide Review 1 YES
[2017-11-04] MEDS: Advair Hfa 230/21 Mcg COMMON CANISTER IH SCH ×2 (07:28→19:14)
[2017-11-04] MEDS: NovoLOG Insulin SQ PRN ×3 (08:32→22:16)
[2017-11-04] MEDS: PROTONIX 40 MG IV IV SCH (09:05)
[2017-11-04] MEDS: ROCEPHIN 1 Gm-D5w 50 ml Bag** 1 G/50 ML IVPB IV SCH (09:05)
[2017-11-04] MEDS: ELIQUIS 5 MG TABLET PO SCH ×2 (09:05→22:10)
[2017-11-04] MEDS: Zithromax 500 MG/ 250 ML NaCl Premix 500 MG/250 ML IVPB IV SCH (09:46)
[2017-11-04] MEDS: Miralax Powder 17GM PACKET PO SCH (10:39)
[2017-11-04] MEDS: xanAX 0.5 MG PO PRN (22:19)
[2017-11-04] MEDS: Norco 10/325 MG Tablet PO PRN (22:19)
[2017-11-05] MEDS: DUONEB 0.5-3 MG/3 ml Neb IH SCH ×6 (03:04→23:10)
[2017-11-05 06:06] LABS: Basophil (Absolute #) 0 (0-0.4); Eosinophil (Absolute #) 0 (0-0.5); Granulocyte Absolute (ANC) 13.57 (1.4-6.9); Granulocytes % 93.7 % (36.0-66.0); Hematocrit 29.5 % (42-50); Hemoglobin 9.5 gm/dl (12.5-18.0); Lymphocyte (Absolute #) 0.61 (1.0-4.6); Lymphocytes % 4.2 % (24.0-44.0); Mean Cell Volume 91.3 fl (78-100); Mean Corpuscular Hemoglobin 29.4 pg (26-32); Mean Corpuscular Hgb Concent. 32.2 g/dl (32-36); Mean Platelet Volume 8.4 fl (6-9.5); Monocyte (Absolute #) 0.31 (0.0-1.3); Monocytes % 2.1 % (0.0-12.0); Platelet Count 230 K/mm3 (150-450); Red Blood Count 3.23 M/mm3 (4.1-5.6); Red Cell Distribution Width 14.8 % (11.5-14.0); White Blood Count 14.5 K/mm3 (4.0-10.5)
[2017-11-05 06:16] LABS: ANION GAP 9.3 MEQ/L (5-15); BLOOD UREA NITROGEN 21 mg/dL (9-20); CHLORIDE 111 mmol/L (98-107); Calcium 8.8 mg/dL (8.4-10.2); Carbon Dioxide 27 mmol/L (22-30); Creatinine 1 0.72 mg/dL (0.66-1.25); Glucose 206 mg/dL (74-106); Potassium 4.2 mmol/L (3.5-5.1); SODIUM 143 mmol/L (137-145)
[2017-11-05] MEDS: solu-MEDROL 125 MG IV SCH (06:24)
[2017-11-05] MEDS: Advair Hfa 230/21 Mcg COMMON CANISTER IH SCH ×2 (07:17→19:27)
[2017-11-05] MEDS: NovoLOG Insulin SQ PRN ×4 (07:46→21:11)
[2017-11-05] MEDS: ROCEPHIN 1 Gm-D5w 50 ml Bag** 1 G/50 ML IVPB IV SCH (09:05)
[2017-11-05] MEDS: PROTONIX 40 MG IV IV SCH (09:05)
[2017-11-05] MEDS: ELIQUIS 5 MG TABLET PO SCH ×2 (09:06→21:08)
[2017-11-05] MEDS: Miralax Powder 17GM PACKET PO SCH (09:07)
[2017-11-05] MEDS: Zithromax 500 MG/ 250 ML NaCl Premix 500 MG/250 ML IVPB IV SCH (09:47)
[2017-11-05] MEDS: DELTASONE 20 MG PO SCH (11:14)
[2017-11-05] MEDS: xanAX 0.5 MG PO PRN (21:11)
[2017-11-05] MEDS: Norco 10/325 MG Tablet PO PRN (21:11)
[2017-11-06] MEDS: DUONEB 0.5-3 MG/3 ml Neb IH SCH ×6 (03:04→23:11)
[2017-11-06] MEDS: Advair Hfa 230/21 Mcg COMMON CANISTER IH SCH ×2 (07:05→18:57)
[2017-11-06] MEDS: Miralax Powder 17GM PACKET PO SCH (09:09)
[2017-11-06] MEDS: DELTASONE 20 MG PO SCH (09:09)
[2017-11-06] MEDS: ROCEPHIN 1 Gm-D5w 50 ml Bag** 1 G/50 ML IVPB IV SCH (09:09)
[2017-11-06] MEDS: PROTONIX 40 MG IV IV SCH (09:09)
[2017-11-06] MEDS: ELIQUIS 5 MG TABLET PO SCH ×2 (09:09→23:17)
[2017-11-06] MEDS ORDERED: CITROMA 296 ML PO ONE (10:13)
--- NOTE | 2017-11-06 10:14 | PCM.NOTE ---
Date and Time: 11/06/17 1014 Subjective Assessment: increased pain and swelling in abdomen not able to eat but a few bites having small bm causing pain with movement from the distended abdomen his breathing is improving but now not able to ambulate well or eat well with the abdominal swelling and pain. He had CT of the abdomen several days ago and per the patient and nurse has slowly become more distended since this was obtained. no vomiting no black or bloody stools Objective Exam General Appearance: no apparent distress, alert, thin Neurologic Exam: alert, oriented x 3, cooperative Skin Exam: normal color, warm, dry Eye Exam: PERRL, EOMI, eyes nml inspection Ears, Nose, Throat Exam: dry mucous membranes Neck Exam: normal inspection, non-tender, supple, full range of motion Respiratory Exam: diminished breath sounds, crackles/rales, rhonchi Cardiovascular Exam: regular rate/rhythm, normal heart sounds, murmur Gastrointestinal/Abdomen Exam: soft, normal bowel sounds, tenderness (diffuse tenderness with mild distension), distention, No mass, No guarding, No ecchymosis, No pulsatile mass, No rebound, No hepatomegaly, No organomegaly Extremity Exam: normal inspection, normal range of motion Back Exam: normal inspection, normal range of motion, No CVA tenderness, No vertebral tenderness Male Genitalia Exam: deferred Rectal Exam: deferred OBJECTIVE DATA Vital Signs: Vital Signs - 24 hr Temp Pulse Resp BP Pulse Ox 11/06/17 07:20 98.1 F 62 18 167/93 97 11/06/17 07:05 73 18 97 11/06/17 06:00 20 11/06/17 04:00 98.1 F 72 20 157/77 99 11/06/17 03:04 72 20 99 11/06/17 02:00 18 11/05/17 23:48 97.9 F 80 21 155/77 97 11/05/17 23:10 80 21 97 11/05/17 22:00 18 11/05/17 20:00 98.2 F 80 24 161/84 96 11/05/17 19:26 75 21 96 11/05/17 18:00 21 11/05/17 16:20 97.8 F 64 20 122/58 95 11/05/17 15:15 82 20 97 11/05/17 14:00 20 11/05/17 12:20 97.7 F 88 20 127/64 95 11/05/17 11:00 84 20 98 Oxygen-Last 24 hours O2 Percentage 4 Liters = 36% O2 Percentage 5 Liters = 40% O2 Percentage 5 Liters = 40% O2 Percentage 5 Liters = 40% O2 Percentage 5 Liters = 40% O2 Percentage 5 Liters = 40% Pain Assessment - Last Documented Pain Intensity 0 Pain Scale Used 0-10 Pain Scale Intake and Output: Intake & Output 11/03/17 11/04/17 11/05/17 11/06/17 11:59 11:59 11:59 11:59 Intake Total 2652 4828 2990 1700 Output Total 1400 2625 3045 4100 Balance 1252 7423 55 2400 Weight 59.3 kg Lab Results: Accuchecks Date 11/06/17 Date 11/05/17 Date 11/05/17 Date 11/05/17 Time 07:21 Time 22:26 Time 16:08 Time 11:28 Accucheck Value: 140 Accucheck Value: 244 Accucheck Value: 223 Accucheck Value: 353 Assessment/Plan (1) Abdominal pain Current Visit: Yes Status: Acute Assessment & Plan: suspected sedondary to worsening constipation despite the small bm the lsat few days will try mag citrate today and monitor abdominal symptoms encourage fluid intake po continue current prednisone and nebs for the copd Code(s): R10.9 - UNSPECIFIED ABDOMINAL PAIN (2) Acute exacerbation of chronic obstructive airways disease Current Visit: Yes Status: Acute Onset Date: ~10/12/17 Code(s): J44.1 - CHRONIC OBSTRUCTIVE PULMONARY DISEASE W (ACUTE) EXACERBATION (3) Hx pulmonary embolism Current Visit: Yes Status: Chronic Code(s): Z86.711 - PERSONAL HISTORY OF PULMONARY EMBOLISM (4) Protein calorie malnutrition Current Visit: Yes Status: Chronic Code(s): E46 - UNSPECIFIED PROTEIN- CALORIE MALNUTRITION (5) Chronic hypoxemic respiratory failure Current Visit: Yes Status: Chronic (6) CHF (congestive heart failure) Current Visit: Yes Status: Chronic Qualifiers: Qualified Code(s): I50.9 - Heart failure, unspecified Code(s): I50.9 - HEART FAILURE, UNSPECIFIED
[2017-11-06] MEDS: NovoLOG Insulin SQ PRN ×3 (12:16→23:18)
[2017-11-06] MEDS: Norco 10/325 MG Tablet PO PRN (23:57)
[2017-11-06] MEDS: xanAX 0.5 MG PO PRN (23:57)
[2017-11-07] MEDS: DUONEB 0.5-3 MG/3 ml Neb IH SCH ×3 (03:15→11:14)
[2017-11-07] MEDS: Advair Hfa 230/21 Mcg COMMON CANISTER IH SCH (07:09)
[2017-11-07] MEDS: Miralax Powder 17GM PACKET PO SCH (08:15)
[2017-11-07] MEDS: DELTASONE 20 MG PO SCH (08:15)
[2017-11-07] MEDS: ELIQUIS 5 MG TABLET PO SCH (08:15)
[2017-11-07] MEDS: PROTONIX 40 MG IV IV SCH (08:15)
[2017-11-07] MEDS: ROCEPHIN 1 Gm-D5w 50 ml Bag** 1 G/50 ML IVPB IV SCH (08:15)
[2017-11-07 08:26] VITALS: BP 132/68
--- NOTE | 2017-11-07 09:27 | PCM.DS ---
Discharge Summary Date of Admission: 11/02/17 14:01 Admitting Physician: IBETH JAEGER Primary Care Provider: IBETH JAEGER Allergies Allergies No Known Drug Allergies Allergy (Verified 09/13/17 15:51) Hospital Summary - Hospital Course Hospital Course: Pt of Dr. Jaeger with black lung admitted for COPD exacerbation. He recovered quickly with IV antibiotics but then his abdominal distension started worsening and he was unable to eat and move around well. He was given mag citrate and pt had good results (BM x 3). He still has abd distension but it is less than before. He is tolerating po, has an appetite but says after 2-3 bites feels full. The distension has been a chronic issue. - Vitals & Intake/Output Vital Signs: Vital Signs Temperature 97.9 F 11/07/17 08:00 Pulse Rate 68 11/07/17 08:00 Respiratory Rate 22 11/07/17 08:00 Blood Pressure 132/68 11/07/17 08:26 O2 Sat by Pulse Oximetry 98 11/07/17 08:00 Oxygen-Last Documented O2 Percentage 5 Liters = 40% Intake & Output: Intake & Output 11/04/17 11/05/17 11/06/17 11/07/17 11:59 11:59 11:59 11:59 Intake Total 4828 2990 1700 2160 Output Total 2625 3045 4100 3025 Balance 2203 -55 -2400 -865 - Lab Result Diagrams: 11/05/17 05:40 11/05/17 05:40 Lab Results-Last 24 Hrs: Accuchecks Date 11/07/17 Date 11/06/17 Date 11/06/17 Date 11/06/17 Time 07:46 Time 23:23 Time 16:30 Time 11:30 Accucheck Value: 153 Accucheck Value: 245 Accucheck Value: 213 Accucheck Value: 204 Micro Results-Entire Visit: Accuchecks Date 11/07/17 Date 11/06/17 Date 11/06/1711/06/17 Time 07:46 Time 23:23 Time 16:30 Time 11:30 Accucheck Value: 153 Accucheck Value: 245 Accucheck Value: 213 Accucheck Value: 204 - Procedures and Test Procedures and Tests throughout Hospitalization: Therapy Orders & Screens 11/02/17 14:17 Respiratory Nebulizer 1500,1900,2300,0300,0700,1100 Comment: Duonebs q 4 hr 2.5/0.5 mg IH Diagnosis: Acute exacerbation COPD, abdominal pain 11/02/17 14:32 Oxygen NASAL CANNULA 5 lpm Comment: Diagnosis: Acute exacerbation COPD, abdominal pain 11/02/17 19:00 Respiratory MDI Q12H Comment: ADVAIR 230/21 BID Diagnosis: Acute exacerbation COPD, abdominal pain Discharge Exam General Appearance: no apparent distress, alert Neurologic Exam: oriented x 3, cooperative Skin Exam: normal color, warm, dry, No rash Eye Exam: eyes nml inspection Ears, Nose, Throat Exam: moist mucous membranes Respiratory Exam: diminished breath sounds (particularly in RLL), crackles/ rales (L base), No wheezing Cardiovascular Exam: regular rate/rhythm, normal heart sounds, No murmur Gastrointestinal/Abdomen Exam: soft, distention, other (hyperactive bowel sounds ), No tenderness, No guarding, No rebound Extremity Exam: normal inspection, No pedal edema, No swelling Final Diagnosis/Problem List - Final Discharge Diagnosis/Problem (1) Acute exacerbation of chronic obstructive airways disease Current Visit: Yes Status: Acute Onset Date: ~10/12/17 Assessment & Plan: Much better with IV antibiotics - home on po cefdinir. (2) Constipation Current Visit: Yes Status: Acute Assessment & Plan: Much better after magnesium citrate. (3) Abdominal distension Current Visit: Yes Status: Chronic (4) Abdominal pain Current Visit: Yes Status: Resolved (5) Chronic hypoxemic respiratory failure Current Visit: Yes Status: Chronic (6) End stage COPD Current Visit: No Status: Chronic Assessment & Plan: He is concerned with his lung disease that he may have mesothelioma as well. Will refer to Dr. Conti so they can discuss. - Discharge Disposition: Home, Self-Care Condition: Stable Prescriptions: New Cefdinir 300 mg [Omnicef 300 mg] 300 mg PO BID #20 capsule Continue Omeprazole 20 MG [Prilosec 20 mg] 20 mg PO DAILY Metformin HCl 500 mg [Glucophage 500 MG] 500 mg PO BID Apixaban [Eliquis 5 mg Tablet] 5 mg PO BID Ipratropium/Albuterol Sulfate [Iprat-Albut 0.5-3(2.5) mg/3 ml] 3 ml IH Q4H Alprazolam 0.5 mg PO HS PRN PRN #30 tablet PRN Reason: Anxiety Hydrocodone/APAP 10/325 mg [[place] 10/325 MG Tablet] 1 tab PO Q4H PRN PRN PRN Reason: Pain predniSONE [Prednisone] 20 mg PO DAILY #17 tablet Instructions: Exacerbation of COPD (DC) Follow up with: IBETH JAEGER MD [Primary Care Provider] - 1 Week Forms: Discharge Instructions, Patient Portal Information
[2017-11-07 11:18] VITALS: PULSE 70; O2SAT 95
== END 2017-11-07 11:40 | disposition home or self-care (01) | DRG 191 ==
LOC: MED SURG 14:01 → OBSVTOIN 14:01
PROVIDERS: ADMIT Family Medicine; ATTEND Family Medicine
DX: J44.1 Chronic obstructive pulmonary disease with (acute) exacerbation (principal); J96.11 Chronic respiratory failure with hypoxia; E46 Unspecified protein-calorie malnutrition; K59.00 Constipation, unspecified; R14.0 Abdominal distension (gaseous); E11.9 Type 2 diabetes mellitus without complications; Z79.4 Long term (current) use of insulin; K21.9 Gastro-esophageal reflux disease without esophagitis; Z79.01 Long term (current) use of anticoagulants; Z79.899 Other long term (current) drug therapy; Z86.711 Personal history of pulmonary embolism; I50.9 Heart failure, unspecified
CPT/HCPCS: 36415; 71045; 74176; 80048; 80053; 82150; 83690; 85025; 94150; 94640; 94760; J0456; J0696; J2930; A9270-GY

== ENCOUNTER 2017-11-10 05:28 | Inpatient (IN) | payer BLACK LUNG, MEDICARE ==
[2017-11-10] MEDS ORDERED: solu-MEDROL 125 MG IV ONE (05:51)
[2017-11-10] MEDS ORDERED: ROCEPHIN 1 Gm-D5w 50 ml Bag** 1 G/50 ML IVPB IV STA (05:51)
[2017-11-10] MEDS ORDERED: Zithromax 500 MG/ 250 ML NaCl Premix 500 MG/250 ML IVPB IV STA (05:51)
[2017-11-10] MEDS ORDERED: Xopenex 1.25 MG/0.5 ML UD NEBULE IH ONE ×2 (05:51→06:15)
[2017-11-10] MEDS ORDERED: Sodium Chloride 0.9% 1000 ML 1,000 ML IV SCH ×2 (06:00→07:00)
[2017-11-10] MEDS ORDERED: solu-MEDROL 125 MG ONE (06:14)
[2017-11-10] MEDS ORDERED: ROCEPHIN 1 Gm-D5w 50 ml Bag** 1 G/50 ML IVPB IV ONE (06:15)
[2017-11-10] MEDS ORDERED: Sodium Chloride 3 ML UD NEBULES IH ONE (06:15)
[2017-11-10 06:21] LABS: Granulocyte Absolute (ANC) 12.33 (1.4-6.9); Hematocrit 40.1 % (42-50); Hemoglobin 13.1 gm/dl (12.5-18.0); Mean Cell Volume 90.9 fl (78-100); Mean Corpuscular Hemoglobin 29.7 pg (26-32); Mean Corpuscular Hgb Concent. 32.7 g/dl (32-36); Mean Platelet Volume 8.6 fl (6-9.5); Platelet Count 270 K/mm3 (150-450); Red Blood Count 4.41 M/mm3 (4.1-5.6); Red Cell Distribution Width 14.9 % (11.5-14.0); White Blood Count 14.5 K/mm3 (4.0-10.5)
[2017-11-10 06:35] LABS: INR 0.98 (0.8-3.0)
[2017-11-10 06:41] LABS: ALBUMIN 4.1 g/dL (3.5-5.0); ALKALINE PHOSPHATASE 91 U/L (38-126); ANION GAP 11.1 MEQ/L (5-15); BLOOD UREA NITROGEN 25 mg/dL (9-20); CHLORIDE 105 mmol/L (98-107); Calcium 9.5 mg/dL (8.4-10.2); Carbon Dioxide 31 mmol/L (22-30); Creatinine 1 0.94 mg/dL (0.66-1.25); Glucose 110 mg/dL (74-106); Potassium 3.9 mmol/L (3.5-5.1); SGOT/AST 21 U/L (17-59); SGPT/ALT 58 U/L (0-50); SODIUM 143 mmol/L (137-145); Total Protein 7.1 g/dL (6.3-8.2)
[2017-11-10 06:50] LABS: NT PRO BNP 295 pg/mL (0-900)
[2017-11-10] MEDS ORDERED: Zithromax 500 MG/ 250 ML NaCl Premix 500 MG/250 ML IVPB IV ONE (06:50)
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
[2017-11-10] MEDS ORDERED: Norco 10/325 MG Tablet PO PRN (07:00)
[2017-11-10] MEDS ORDERED: DUONEB 0.5-3 MG/3 ml Neb IH ONE ×3 (07:01→10:47)
[2017-11-10 07:20] LABS: INFLUENZA A NEGATIVE (NEGATIVE); INFLUENZA B NEGATIVE (NEGATIVE); RESPIRATORY SYNCTIAL VIRUS NEGATIVE (Negative)
[2017-11-10] MEDS ORDERED: DULCOLAX 5 MG PO PRN (08:42)
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
[2017-11-10] MEDS: ELIQUIS 5 MG TABLET PO SCH ×2 (09:41→21:44)
[2017-11-10] MEDS: Glucophage 500 MG PO SCH ×2 (09:41→16:52)
[2017-11-10] MEDS: solu-MEDROL 125 MG IV SCH ×3 (11:20→23:23)
[2017-11-10] MEDS: DUONEB 0.5-3 MG/3 ml Neb IH SCH ×4 (11:23→23:13)
[2017-11-10] MEDS: Protonix 40MG Tablet PO SCH (11:24)
[2017-11-10 13:59] LABS: BAND 1 % (0.0-2.0); Lymphocytes 17 % (24-44); Monocyte 2 % (0.0-12.0); Neutrophils 80 % (36.-66.); Total Cells Counted 100
[2017-11-10 14:01] LABS: Platelet Estimate NORMAL (NORMAL)
[2017-11-10] MEDS: Tussionex Pennkinetic Susp PO PRN (15:32)
--- NOTE | 2017-11-10 16:58 | XRAY ---
Exam: AP portable chest film from 11/10/2017. Comparison: AP portable chest film from 11/02/2017 and 10/12/2017. Indication: Cough, dyspnea. Findings: 2 AP images were obtained. The transverse heart size is normal. Mild atherosclerotic passer calcification within the aortic knob and tortuosity of the descending thoracic aorta are again seen. There appear to be emphysematous changes. Fine surgical suture material overlies the right lung base. Correlate with prior surgical history. Mild airspace opacity and scarring overlies the right midlung field and left suprahilar projection. This appears similar to 11/02/2017. I also note some chronic pleural reaction at the hemidiaphragmatic services with blunting of both costophrenic angles. This may be due to mild scarring, although minimal pleural fluid is not excluded. Minimal residual scarring at both lung bases is again seen. No other active lung disease is seen. No pneumothorax or central vascular congestion is seen. Bilateral healed rib fracture deformities are again noted. Impression: 1. COPD with chronic appearing scarring within the right midlung field, and to a lesser extent, the left suprahilar projection. I also note minimal bibasilar linear scarring and chronic appearing pleural thickening/scarring at each hemidiaphragmatic surface, blunting the lateral costophrenic angles. This is essentially unchanged from 11/02/2017. I see no new acute cardiopulmonary disease. 2. Evidence of prior surgery at the right lung base with fine surgical suture material. 3. Old healed bilateral rib fractures.
[2017-11-10] MEDS: Advair Hfa 230/21 Mcg COMMON CANISTER IH SCH (19:39)
[2017-11-10] MEDS ORDERED: CHLORASEPTIC SPRAY 180 ML PO PRN (20:18)
[2017-11-10] MEDS: Norco 10/325 MG Tablet PO PRN (21:44)
[2017-11-10] MEDS: xanAX 0.5 MG PO PRN (21:44)
[2017-11-10] MEDS: NovoLOG Insulin SQ PRN (21:44)
[2017-11-11] MEDS: DUONEB 0.5-3 MG/3 ml Neb IH SCH ×6 (03:29→23:19)
[2017-11-11] MEDS: solu-MEDROL 125 MG IV SCH ×4 (05:47→23:39)
[2017-11-11] MEDS: Advair Hfa 230/21 Mcg COMMON CANISTER IH SCH ×2 (06:36→19:53)
[2017-11-11] MEDS: Glucophage 500 MG PO SCH ×2 (07:49→16:44)
[2017-11-11] MEDS: Protonix 40MG Tablet PO SCH (09:20)
[2017-11-11] MEDS: ROCEPHIN 1 Gm-D5w 50 ml Bag** 1 G/50 ML IVPB IV SCH (09:21)
[2017-11-11] MEDS ORDERED: NON-FORMULARY ITEM (Omeprazole 20 Mg [Prilosec 20 Mg] 20 MG) PO SCH (10:00)
[2017-11-11] MEDS: ELIQUIS 5 MG TABLET PO SCH ×2 (10:15→21:15)
[2017-11-11] MEDS: Zithromax 500 MG/ 250 ML NaCl Premix 500 MG/250 ML IVPB IV SCH (10:15)
[2017-11-11] MEDS: NovoLOG Insulin SQ PRN ×2 (11:48→21:15)
--- NOTE | 2017-11-11 12:11 | PCM.NOTE ---
Date and Time: 11/11/17 1207 Subjective Assessment: Pt's breathing is much better than at admission. States he had been very short of breath with sharp chest pains. [place] po. - Review of Systems Constitutional: No Fever Respiratory: Cough Objective Exam General Appearance: no apparent distress, alert Neurologic Exam: oriented x 3, cooperative Skin Exam: normal color, warm, dry, No rash Respiratory Exam: diminished breath sounds (fair air exchange. Decreased in RLL ), rhonchi (lower lobes, L>R), No wheezing Cardiovascular Exam: regular rate/rhythm, normal heart sounds, No murmur Extremity Exam: normal inspection, No pedal edema, No swelling OBJECTIVE DATA Vital Signs: Vital Signs - 24 hr Temp Pulse Resp BP Pulse Ox 11/11/17 11:58 20 11/11/17 11:57 97.8 F 78 20 122/73 98 11/11/17 10:26 70 20 97 11/11/17 07:41 21 11/11/17 07:29 98.0 F 68 21 138/76 99 11/11/17 06:40 67 20 97 11/11/17 04:00 97.8 F 72 22 137/67 98 11/11/17 03:59 22 11/11/17 03:29 72 22 98 11/11/17 00:00 24 11/10/17 23:49 98.2 F 78 24 123/63 98 11/10/17 23:14 78 24 98 11/10/17 20:00 25 H 11/10/17 19:52 99.1 F 75 25 H 125/62 97 11/10/17 19:41 72 24 98 11/10/17 16:00 97.9 F 84 24 128/76 93 L Oxygen-Last 24 hours O2 Percentage 5 Liters = 40% O2 Percentage 5 Liters = 40% O2 Percentage 5 Liters = 40% O2 Percentage 5 Liters = 40% O2 Percentage 5 Liters = 40% O2 Percentage 5 Liters = 40% Pain Assessment - Last Documented Pain Intensity 4 Pain Scale Used 0-10 Pain Scale Intake and Output: Intake & Output 11/09/17 11/10/17 11/11/17 11/12/17 11:59 11:59 11:59 11:59 Intake Total 2143 Output Total 200 1350 Balance -200 793 Weight 57.8 kg 59.2 kg Lab Results: Accuchecks Date 11/11/17 Date 11/11/17 Date 11/10/17 Date 11/10/17 Time 11:30 Time 07:30 Time 21:00 Accucheck Value: 283 Accucheck Value: 218 Accucheck Value: 265 Accucheck Value: 259 Lab Results-Last 24 Hours 11/10/17 11/10/17 Range/Units 12:20 15:25 Troponin I < 0.012 < 0.012 (0.000-0.034) ng/mL Multi-Disciplinary Progress Notes: Multi-Disciplinary Progress Notes 11/10/17 23:18 Respiratory Note by Reg Herndon CANCELLED DUPLICATE Q4 ORDER FOR NEBS Initialized on 11/10/17 23:18 - END OF NOTE Assessment/Plan (1) Acute exacerbation of chronic obstructive airways disease Current Visit: No Status: Acute Onset Date: ~10/12/17 Assessment & Plan: Day #2 rocephin and zithromax IV with improvement. May be able to d/c home tomorrow if still feeling well. On IV steroids 80mg q6h methylprednisolone. Code(s): J44.1 - CHRONIC OBSTRUCTIVE PULMONARY DISEASE W (ACUTE) EXACERBATION (2) Weakness Current Visit: No Status: Chronic Onset Date: ~10/12/17 Code(s): R53.1 - WEAKNESS (3) CHF (congestive heart failure) Current Visit: No Status: Chronic Qualifiers: Qualified Code(s): I50.9 - Heart failure, unspecified Code(s): I50.9 - HEART FAILURE, UNSPECIFIED (4) Hx pulmonary embolism Current Visit: No Status: Chronic Assessment & Plan: on Eliquis Code(s): Z86.711 - PERSONAL HISTORY OF PULMONARY EMBOLISM
[2017-11-11] MEDS: Sodium Chloride 0.9% 10 ML FLUSH Syringe IV SCH (21:15)
[2017-11-11] MEDS: Norco 10/325 MG Tablet PO PRN (22:20)
[2017-11-11] MEDS: xanAX 0.5 MG PO PRN (22:20)
[2017-11-12] MEDS: DUONEB 0.5-3 MG/3 ml Neb IH SCH ×6 (03:27→22:48)
[2017-11-12] MEDS: Tussionex Pennkinetic Susp PO PRN (04:20)
[2017-11-12] MEDS: solu-MEDROL 125 MG IV SCH ×2 (05:31→12:27)
[2017-11-12] MEDS: Sodium Chloride 0.9% 10 ML FLUSH Syringe IV SCH ×3 (05:35→21:06)
[2017-11-12 06:02] LABS: Granulocyte Absolute (ANC) 13.65 (1.4-6.9); Hematocrit 31.5 % (42-50); Hemoglobin 10.1 gm/dl (12.5-18.0); Mean Corpuscular Hgb Concent. 32.1 g/dl (32-36); Mean Platelet Volume 8.3 fl (6-9.5); Platelet Count 269 K/mm3 (150-450); Red Blood Count 3.46 M/mm3 (4.1-5.6); Red Cell Distribution Width 14.5 % (11.5-14.0); White Blood Count 14.6 K/mm3 (4.0-10.5)
[2017-11-12 06:26] LABS: Mean Corpuscular Hemoglobin 29.1 pg (26-32)
[2017-11-12 06:32] LABS: ANION GAP 10.1 MEQ/L (5-15); BLOOD UREA NITROGEN 23 mg/dL (9-20); CHLORIDE 104 mmol/L (98-107); Calcium 8.9 mg/dL (8.4-10.2); Carbon Dioxide 26 mmol/L (22-30); Creatinine 1 0.77 mg/dL (0.66-1.25); Glucose 279 mg/dL (74-106); Potassium 4.3 mmol/L (3.5-5.1); SODIUM 136 mmol/L (137-145)
[2017-11-12] MEDS: Advair Hfa 230/21 Mcg COMMON CANISTER IH SCH ×2 (07:30→18:48)
[2017-11-12] MEDS: Glucophage 500 MG PO SCH ×2 (08:15→17:41)
[2017-11-12] MEDS: NovoLOG Insulin SQ PRN ×3 (08:16→21:05)
[2017-11-12 08:49] LABS: Lymphocytes 6 % (24-44); Neutrophils 94 % (36.-66.); Total Cells Counted 100
[2017-11-12 08:50] LABS: ANISOCYTOSIS 1+; Platelet Estimate NORMAL (NORMAL)
[2017-11-12] MEDS: Protonix 40MG Tablet PO SCH (09:21)
[2017-11-12] MEDS: ELIQUIS 5 MG TABLET PO SCH (09:21)
[2017-11-12] MEDS: Zithromax 500 MG/ 250 ML NaCl Premix 500 MG/250 ML IVPB IV SCH (09:22)
[2017-11-12] MEDS: ROCEPHIN 1 Gm-D5w 50 ml Bag** 1 G/50 ML IVPB IV SCH (09:28)
--- NOTE | 2017-11-12 10:10 | PCM.DS ---
Discharge Summary Date of Admission: 11/10/17 08:30 Admitting Physician: IBETH JAEGER Primary Care Provider: IBETH JAEGER Allergies Allergies No Known Drug Allergies Allergy (Verified 11/10/17 05:39) Hospital Summary - Hospital Course Hospital Course: Pt is 67 yo male pt of Dr. Jaeger with end stage COPD admitted for COPD exacerbation. He started feeling better after a day in the hospital, continues to feel better and is tolerating po and up out of bed. He is on rocephin and zithromax day #3 today. Has also been on solumedrol 80mg IV q6h. He will be discharged to home on po antibiotics and prednisone after receiving 1-2 doses of solumedrol today. - Vitals & Intake/Output Vital Signs: Vital Signs Temperature 98.1 F 11/12/17 07:44 Pulse Rate 77 11/12/17 07:44 Respiratory Rate 18 11/12/17 08:00 Blood Pressure 131/70 11/12/17 07:44 O2 Sat by Pulse Oximetry 98 11/12/17 07:44 Oxygen-Last Documented O2 Percentage 5 Liters = 40% Intake & Output: Intake & Output 11/09/17 11/10/17 11/11/17 11/12/17 11:59 11:59 11:59 11:59 Intake Total 2143 2260 Output Total 200 1350 1655 Balance -200 793 605 Weight 57.8 kg 59.2 kg 59.3 kg - Lab Result Diagrams: 11/12/17 05:25 11/12/17 05:25 Lab Results-Last 24 Hrs: Accuchecks Date 11/12/17 Date 11/11/17 Date 11/11/17 Date 11/11/17 Time 08:16 Time 21:00 Time 16:30 Time 11:30 Accucheck Value: 273 Accucheck Value: 205 Accucheck Value: 197 Accucheck Value: 283 Lab Results-Last 24 Hours 11/12/17 11/12/17 Range/Units 05:25 05:25 WBC 14.6 H (4.0-10.5) K/mm3 RBC 3.46 L (4.1-5.6) M/mm3 Hgb 10.1 L (12.5-18.0) gm/dl Hct 31.5 L (42-50) % MCV 91.0 (78-100) fl MCH 29.1 (26-32) pg MCHC 32.1 (32-36) g/dl RDW 14.5 H (11.5-14.0) % Plt Count 269 (150-450) K/mm3 MPV 8.3 (6-9.5) fl Absolute Granulocytes 13.65 H (1.4-6.9) Segmented Neutrophils 94 H (36.-66.) % Lymphocytes (Manual) 6 L (24-44) % Platelet Estimate NORMAL (NORMAL) RBC Morphology ABNORMAL Anisocytosis 1+ Sodium 136 L (137-145) mmol/L Potassium 4.3 (3.5-5.1) mmol/L Chloride 104 (98-107) mmol/L Carbon Dioxide 26 (22-30) mmol/L Anion Gap 10.1 (5-15) MEQ/L BUN 23 H (9-20) mg/dL Creatinine 0.77 (0.66-1.25) mg/dL Estimated GFR > 60.0 ML/MIN Glucose 279 H (74-106) mg/dL Calcium 8.9 (8.4-10.2) mg/dL Micro Results-Entire Visit: Accuchecks Date 11/12/17 Date 11/11/17 Date 11/11/17 Date 11/11/17 Time 08:16 Time 21:00 Time 16:30 Time 11:30 Accucheck Value: 273 Accucheck Value: 205 Accucheck Value: 197 Accucheck Value: 283 - Procedures and Test Procedures and Tests throughout Hospitalization: Therapy Orders & Screens 11/10/17 10:08 RT Screen per Nursing Assess ONCE Comment: Protocol Order Physician Instructions: Greater than 3 points order RT Admission Screen Reason For Exam: Triggered on Admission Diagnosis: EXACERBATION COPD;pneumonia Diagnosis: EXACERBATION COPD;pneumonia Pneumonia: Yes Home O2: Yes Asthma: No CHF: No Home CPAP/BIPAP: No Home Nebs/MDI: Yes Total Points: 13 11/10/17 10:43 Respiratory MDI BID Comment: Diagnosis: EXACERBATION COPD;pneumonia Respiratory Nebulizer Q4H Comment: Diagnosis: EXACERBATION COPD;pneumonia Discharge Exam General Appearance: no apparent distress, alert Neurologic Exam: oriented x 3, cooperative Skin Exam: normal color, warm, dry, No rash Eye Exam: eyes nml inspection Ears, Nose, Throat Exam: moist mucous membranes Neck Exam: normal inspection Respiratory Exam: diminished breath sounds (good air exchange), rhonchi (faint in RLL), No crackles/rales, No wheezing Cardiovascular Exam: regular rate/rhythm, normal heart sounds, No murmur Extremity Exam: No pedal edema, No swelling Back Exam: normal inspection, No rash Final Diagnosis/Problem List - Final Discharge Diagnosis/Problem (1) Acute exacerbation of chronic obstructive airways disease Current Visit: No Status: Acute Onset Date: ~10/12/17 Assessment & Plan: Improved; home today on omnicef to finish 10d total. Prednisone. F/u with Dr. Jaeger next week. (2) Weakness Current Visit: No Status: Chronic Onset Date: ~10/12/17 Assessment & Plan: Doing well here, out of bed. (3) CHF (congestive heart failure) Current Visit: No Status: Chronic Assessment & Plan: stable here. (4) Hx pulmonary embolism Current Visit: No Status: Chronic (5) Diabetes mellitus Current Visit: Yes Status: Acute Assessment & Plan: stable. BS 279 this morning, covered with sliding scale. - Discharge Disposition: Home, Self-Care Condition: Stable Prescriptions: New Prednisone 20 mg [Deltasone 20 mg] 20 mg PO DAILY #17 tablet Cefdinir [Omnicef 300 mg] 300 mg PO BID #12 capsule Continue Omeprazole 20 MG [Prilosec 20 mg] 20 mg PO DAILY Metformin HCl 500 mg [Glucophage 500 MG] 500 mg PO BID Apixaban [Eliquis 5 mg Tablet] 5 mg PO BID Ipratropium/Albuterol Sulfate [Iprat-Albut 0.5-3(2.5) mg/3 ml] 3 ml IH Q4H Alprazolam 0.5 mg PO HS PRN PRN #30 tablet PRN Reason: Anxiety Hydrocodone/APAP 10/325 mg [[place] 10/325 MG Tablet] 1 tab PO Q4H PRN PRN PRN Reason: Pain predniSONE [Prednisone] 20 mg PO DAILY #17 tablet Follow up with: IBETH JAEGER MD [Primary Care Provider] - 1 Week
[2017-11-12] MEDS ORDERED: solu-MEDROL 40 MG IV SCH (16:45)
[2017-11-12] MEDS: ELIQUIS 2.5 MG TABLET PO SCH (21:05)
[2017-11-12] MEDS: solu-MEDROL 40 MG IV SCH (21:05)
[2017-11-12] MEDS: xanAX 0.5 MG PO PRN (22:05)
[2017-11-12] MEDS: Norco 10/325 MG Tablet PO PRN (22:05)
[2017-11-13] MEDS: DUONEB 0.5-3 MG/3 ml Neb IH SCH ×3 (03:01→10:30)
[2017-11-13] MEDS: Sodium Chloride 0.9% 10 ML FLUSH Syringe IV SCH (05:48)
[2017-11-13] MEDS: solu-MEDROL 40 MG IV SCH (05:48)
[2017-11-13] MEDS: Advair Hfa 230/21 Mcg COMMON CANISTER IH SCH (07:00)
[2017-11-13] MEDS: Glucophage 500 MG PO SCH (07:44)
[2017-11-13] MEDS: NovoLOG Insulin SQ PRN (07:45)
--- NOTE | 2017-11-13 08:08 | PCM.DS ---
Discharge Summary Date of Admission: 11/10/17 08:30 Admitting Physician: IBETH JAEGER Primary Care Provider: IBETH JAEGER Allergies Allergies No Known Drug Allergies Allergy (Verified 11/10/17 05:39) Hospital Summary - Hospital Course Hospital Course: patient was admitted with copd exacerbation, has chronic end stage copd and chronic hypoxemic respiratory failure. has improved on rocephin/zithromax and IV solumedrol. looks stable and at baseline at the time of discharge. - Vitals & Intake/Output Vital Signs: Vital Signs Temperature 98.8 F 11/13/17 06:54 Pulse Rate 73 11/13/17 07:00 Respiratory Rate 18 11/13/17 07:00 Blood Pressure 134/73 11/13/17 06:54 O2 Sat by Pulse Oximetry 99 11/13/17 07:00 Oxygen-Last Documented O2 Percentage 5 Liters = 40% Intake & Output: Intake & Output 11/10/17 11/11/17 11/12/17 11/13/17 11:59 11:59 11:59 11:59 Intake Total 2143 2260 1640 Output Total 200 1350 1655 1650 Balance -200 793 605 -10 Weight 57.8 kg 59.2 kg 59.3 kg 62.5 kg - Lab Result Diagrams: 11/12/17 05:25 11/12/17 05:25 Lab Results-Last 24 Hrs: Accuchecks Date 11/12/17 Date 11/12/17 Time 16:30 Time 11:30 Accucheck Value: 280 Accucheck Value: 126 Accucheck Value: 367 Lab Results-Last 24 Hours 11/12/17 Range/Units 05:25 Segmented Neutrophils 94 H (36.-66.) % Lymphocytes (Manual) 6 L (24-44) % Platelet Estimate NORMAL (NORMAL) RBC Morphology ABNORMAL Anisocytosis 1+ Micro Results-Entire Visit: Accuchecks Date 11/12/17 Date 11/12/17 Time 16:30 Time 11:30 Accucheck Value: 280 Accucheck Value: 126 Accucheck Value: 367 - Procedures and Test Procedures and Tests throughout Hospitalization: Therapy Orders & Screens 11/10/17 10:08 RT Screen per Nursing Assess ONCE Comment: Protocol Order Physician Instructions: Greater than 3 points order RT Admission Screen Reason For Exam: Triggered on Admission Diagnosis: EXACERBATION COPD;pneumonia Diagnosis: EXACERBATION COPD;pneumonia Pneumonia: Yes Home O2: Yes Asthma: No CHF: No Home CPAP/BIPAP: No Home Nebs/MDI: Yes Total Points: 13 11/10/17 10:43 Respiratory MDI BID Comment: Diagnosis: EXACERBATION COPD;pneumonia Respiratory Nebulizer Q4H Comment: Diagnosis: EXACERBATION COPD;pneumonia Discharge Exam General Appearance: no apparent distress, alert, cachetic Neurologic Exam: alert, oriented x 3 Skin Exam: normal color, warm, dry Respiratory Exam: diminished breath sounds, prolonged expirations Cardiovascular Exam: regular rate/rhythm, normal heart sounds Gastrointestinal/Abdomen Exam: soft, No tenderness, No mass Extremity Exam: normal inspection, normal range of motion Final Diagnosis/Problem List - Final Discharge Diagnosis/Problem (1) Acute exacerbation of chronic obstructive airways disease Current Visit: No Status: Acute Onset Date: ~10/12/17 Assessment & Plan: home on po omnicef, po prednisone and nebulizer therapy per home regimen. (2) Abdominal distension Current Visit: No Status: Chronic (3) Chronic hypoxemic respiratory failure Current Visit: No Status: Chronic (4) End stage COPD Current Visit: No Status: Chronic - Discharge Disposition: Home, Self-Care Condition: Stable Prescriptions: Continue Omeprazole 20 MG [Prilosec 20 mg] 20 mg PO DAILY Metformin HCl 500 mg [Glucophage 500 MG] 500 mg PO BID Apixaban [Eliquis 5 mg Tablet] 5 mg PO BID Ipratropium/Albuterol Sulfate [Iprat-Albut 0.5-3(2.5) mg/3 ml] 3 ml IH Q4H Alprazolam 0.5 mg PO HS PRN PRN #30 tablet PRN Reason: Anxiety Hydrocodone/APAP 10/325 mg [[place] 10/325 MG Tablet] 1 tab PO Q4H PRN PRN PRN Reason: Pain Instructions: Pneumonia in Adults, Exacerbation of COPD Follow up with: IBETH JAEGER MD [Primary Care Provider] - 1 Week Forms: Discharge Instructions
[2017-11-13] MEDS: ELIQUIS 2.5 MG TABLET PO SCH (09:33)
[2017-11-13] MEDS: Protonix 40MG Tablet PO SCH (09:33)
[2017-11-13] MEDS: ROCEPHIN 1 Gm-D5w 50 ml Bag** 1 G/50 ML IVPB IV SCH (09:33)
[2017-11-13 11:07] VITALS: BP 152/71; PULSE 85; O2SAT 94
== END 2017-11-13 11:19 | disposition home or self-care (01) | DRG 191 ==
LOC: ED 05:28 → MED SURG 08:30 → OBSVTOIN 08:30
PROVIDERS: ADMIT Family Medicine; ATTEND Family Medicine
DX: J44.1 Chronic obstructive pulmonary disease with (acute) exacerbation (principal); J96.11 Chronic respiratory failure with hypoxia; R53.1 Weakness; I50.9 Heart failure, unspecified; Z86.711 Personal history of pulmonary embolism; Z79.01 Long term (current) use of anticoagulants; E11.9 Type 2 diabetes mellitus without complications; Z79.4 Long term (current) use of insulin; K31.89 Other diseases of stomach and duodenum; J60 Coalworker's pneumoconiosis; M19.90 Unspecified osteoarthritis, unspecified site; Z79.899 Other long term (current) drug therapy; Z87.891 Personal history of nicotine dependence
CPT/HCPCS: 36000; 36415; 71045; 80048; 80053; 83735; 83880; 84484; 85025; 85610; 87040; 87631; 93005; 93041; 94150; 94640; 94760; 96360; 96361; 96365; 96367; 96374; 99285; J0456; J0696; J2920; J2930; A9270-GY

== ENCOUNTER 2017-12-23 16:59 | Inpatient (IN) | payer BLACK LUNG, MEDICARE, OTHER ==
[2017-12-23] MEDS ORDERED: solu-MEDROL 125 MG IV ONE (17:16)
[2017-12-23] MEDS ORDERED: DUONEB 0.5-3 MG/3 ml Neb IH ONE ×2 (17:16→17:23)
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
[2017-12-23] MEDS ORDERED: solu-MEDROL 125 MG ONE (17:22)
[2017-12-23 18:08] LABS: A-aADO2 73; ABG HEMOGLOBIN 10.6; ABG POTASSIUM 3.8 (3.5-5.1); ARTERIAL BLD GAS O2 SATURATION 98.5 % (95-100); ARTERIAL BLOOD GAS BASE EXCESS 4.9 (-2.0-2.0); ARTERIAL BLOOD GAS FIO2 36 %; ARTERIAL BLOOD GAS PCO2 41 mmHg (35-45); ARTERIAL BLOOD GAS PO2 132 mmHg (75-100); ARTERIAL BLOOD GAS pH 7.46 (7.35-7.45); CARBOXYHEMOGLOBIN 2.2 % THgb (0.0-6.9); HCO3- 29.2 (22-28); HGB O2 SAT 95.5 g/dF (94-100); Lactic Acid 0.8 (0.4-2.0); Methhemoglobin 0.8 % (1.4-1.5); paO2 pAO1 0.64
[2017-12-23 18:09] LABS: ABG SITE RIGHT RADIAL; ALLEN TEST OK? YES
[2017-12-23 18:11] LABS: BASOPHIL % 0.2 % (0.0-0.4); Basophil (Absolute #) 0.02 (0-0.4); Eosinophil (Absolute #) 0.09 (0-0.5); Granulocyte Absolute (ANC) 4.09 (1.4-6.9); Granulocytes % 46.2 % (36.0-66.0); Hematocrit 32.5 % (42-50); Hemoglobin 10.7 gm/dl (12.5-18.0); Lymphocyte (Absolute #) 3.96 (1.0-4.6); Lymphocytes % 44.7 % (24.0-44.0); Mean Cell Volume 90.3 fl (78-100); Mean Corpuscular Hemoglobin 29.7 pg (26-32); Mean Corpuscular Hgb Concent. 32.9 g/dl (32-36); Mean Platelet Volume 8.3 fl (6-9.5); Monocytes % 7.9 % (0.0-12.0); Platelet Count 228 K/mm3 (150-450); Red Cell Distribution Width 13.9 % (11.5-14.0); White Blood Count 8.9 K/mm3 (4.0-10.5)
[2017-12-23 18:27] LABS: INFLUENZA A NEGATIVE (NEGATIVE); INFLUENZA B NEGATIVE (NEGATIVE); RESPIRATORY SYNCTIAL VIRUS NEGATIVE (Negative)
[2017-12-23 18:28] LABS: INR 1.08 (0.8-3.0)
[2017-12-23 18:30] LABS: ALBUMIN 3.8 g/dL (3.5-5.0); ALKALINE PHOSPHATASE 61 U/L (38-126); ANION GAP 11.1 MEQ/L (5-15); BLOOD UREA NITROGEN 22 mg/dL (9-20); CHLORIDE 108 mmol/L (98-107); Calcium 9.3 mg/dL (8.4-10.2); Carbon Dioxide 30 mmol/L (22-30); Creatinine 1 0.91 mg/dL (0.66-1.25); Glucose 98 mg/dL (74-106); PTT 31.3 SECONDS (24.1-36.1); Potassium 4.3 mmol/L (3.5-5.1); SGOT/AST 17 U/L (17-59); SGPT/ALT 11 U/L (0-50); SODIUM 145 mmol/L (137-145); Total Protein 6.6 g/dL (6.3-8.2)
[2017-12-23 18:38] LABS: NT PRO BNP 149 pg/mL (0-900)
[2017-12-23] MEDS ORDERED: ROCEPHIN 1 Gm-D5w 50 ml Bag** 1 G/50 ML IVPB IV STA (18:44)
[2017-12-23] MEDS ORDERED: Zithromax 500 MG/ 250 ML NaCl Premix 500 MG/250 ML IVPB IV STA (18:44)
[2017-12-23] MEDS ORDERED: Sodium Chloride 0.9% 500 ML 500 ML IV ONE ×2 (18:45→18:57)
[2017-12-23] MEDS ORDERED: ROCEPHIN 1 Gm-D5w 50 ml Bag** 1 G/50 ML IVPB IV ONE (18:52)
[2017-12-23] MEDS ORDERED: Sodium Chloride 0.9% 1000 ML 0 ML ONE (18:52)
[2017-12-23] MEDS ORDERED: Zithromax 500 MG/ 250 ML NaCl Premix 500 MG/250 ML IVPB IV ONE (19:31)
[2017-12-23] MEDS ORDERED: NovoLOG Insulin SQ SCH (22:00)
[2017-12-23] MEDS ORDERED: ELIQUIS 5 MG TABLET PO SCH (22:00)
--- NOTE | 2017-12-23 22:08 | XRAY ---
Indication: Lower chest pain. Short of breath. Comparison: November 10, 2017. Portable chest unchanged again demonstrating COPD, bilateral scattered fibrosis/scarring, and bibasilar pleural effusions/thickening. Heart and mediastinal structures within normal limits. Bony thorax intact again with mild degenerative changes and old left rib fractures. No new/acute findings.
[2017-12-23] MEDS ORDERED: ELIQUIS 2.5 MG TABLET ONE (23:02)
[2017-12-23] MEDS: Norco 10/325 MG Tablet PO PRN (23:09)
[2017-12-23] MEDS: xanAX 0.5 MG PO PRN (23:09)
[2017-12-23] MEDS: solu-MEDROL 125 MG IV SCH (23:10)
[2017-12-23] MEDS: Pepcid 20 MG VIAL IV SCH (23:11)
[2017-12-23] MEDS: Glucophage 500 MG PO SCH (23:11)
[2017-12-23] MEDS: DUONEB 0.5-3 MG/3 ml Neb IH SCH (23:28)
[2017-12-24] MEDS: DUONEB 0.5-3 MG/3 ml Neb IH SCH ×6 (04:17→23:30)
[2017-12-24] MEDS: solu-MEDROL 125 MG IV SCH (05:24)
[2017-12-24 06:04] LABS: Hematocrit 31.4 % (42-50); Hemoglobin 10.1 gm/dl (12.5-18.0); Mean Cell Volume 91.3 fl (78-100); Mean Corpuscular Hgb Concent. 32.2 g/dl (32-36); Mean Platelet Volume 8.6 fl (6-9.5); Platelet Count 240 K/mm3 (150-450); Red Blood Count 3.44 M/mm3 (4.1-5.6); White Blood Count 6.6 K/mm3 (4.0-10.5)
[2017-12-24 06:09] LABS: ANION GAP 11.9 MEQ/L (5-15); BLOOD UREA NITROGEN 24 mg/dL (9-20); CHLORIDE 110 mmol/L (98-107); Calcium 8.7 mg/dL (8.4-10.2); Carbon Dioxide 23 mmol/L (22-30); Creatinine 1 0.72 mg/dL (0.66-1.25); Glucose 194 mg/dL (74-106); Potassium 4.1 mmol/L (3.5-5.1); SODIUM 142 mmol/L (137-145)
[2017-12-24 06:14] LABS: Mean Corpuscular Hemoglobin 29.3 pg (26-32)
[2017-12-24] MEDS: Advair Hfa 230/21 Mcg COMMON CANISTER IH SCH ×2 (07:13→19:14)
[2017-12-24] MEDS: NovoLOG Insulin SQ PRN ×4 (08:11→21:17)
[2017-12-24] MEDS ORDERED: solu-MEDROL 125 MG IV SCH (08:24)
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
[2017-12-24] MEDS: Colace 100 MG PO SCH ×2 (09:59→21:15)
[2017-12-24] MEDS: Protonix 40MG Tablet PO SCH (09:59)
[2017-12-24] MEDS: ELIQUIS 2.5 MG TABLET PO SCH ×2 (09:59→21:16)
[2017-12-24] MEDS: Pepcid 20 MG VIAL IV SCH ×2 (09:59→21:16)
[2017-12-24] MEDS ORDERED: ROCEPHIN 1 Gm-D5w 50 ml Bag** 1 G/50 ML IVPB IV SCH (10:00)
[2017-12-24] MEDS ORDERED: NON-FORMULARY ITEM (Omeprazole 20 Mg [Prilosec 20 Mg] 20 MG) PO SCH (10:00)
[2017-12-24] MEDS: solu-MEDROL 40 MG IV SCH ×2 (12:06→17:11)
[2017-12-24] MEDS: Glucophage 500 MG PO SCH (17:09)
[2017-12-24] MEDS: Zithromax 500 MG/ 250 ML NaCl Premix 500 MG/250 ML IVPB IV SCH (17:09)
[2017-12-24] MEDS ORDERED: MAALOX ES 30 ML UNIT DOSE PO ONE (18:12)
[2017-12-24] MEDS ORDERED: MORPHINE SULFATE 4 MG INJ IV ONE (18:12)
[2017-12-24] MEDS: Phenergan 25 MG INJ IV PRN (18:21)
[2017-12-24] MEDS: xanAX 0.5 MG PO PRN (19:41)
--- NOTE | 2017-12-24 20:26 | XRAY ---
Indication: Right back pain. Comparison: July 29, 2016. 5 views of the lumbar spine demonstrates new L2/L3 superior endplate fractures with less than 25% height loss of uncertain chronicity. Stable osteopenia, remote L1 compression deformity, bilateral L5 spondylolysis with grade 1 spondylolisthesis, old right 11/12 rib fractures, heavy aortic calcifications, and pancreatic calcifications from chronic pancreatitis.
[2017-12-24] MEDS: Norco 10/325 MG Tablet PO PRN (23:11)
[2017-12-25] MEDS: DUONEB 0.5-3 MG/3 ml Neb IH SCH ×6 (03:30→22:47)
[2017-12-25] MEDS: solu-MEDROL 40 MG IV SCH ×5 (06:09→23:05)
[2017-12-25] MEDS: Advair Hfa 230/21 Mcg COMMON CANISTER IH SCH ×2 (07:10→18:51)
--- NOTE | 2017-12-25 08:15 | PCM.NOTE ---
Date and Time: 12/25/17812 Subjective Assessment: patient continues to cough and have significant shortness of breath. having a hard time with conversation due to shortness of breath. Objective Exam General Appearance: mild distress, thin Neurologic Exam: alert Skin Exam: normal color, warm, dry Respiratory Exam: crackles/rales, rhonchi Cardiovascular Exam: regular rate/rhythm, normal heart sounds Gastrointestinal/Abdomen Exam: soft, No tenderness, No mass Extremity Exam: normal inspection, normal range of motion OBJECTIVE DATA Vital Signs: Vital Signs - 24 hr Temp Pulse Resp BP Pulse Ox 12/25/17 07:51 98.4 F 73 18 131/62 98 12/25/17 07:40 72 20 100 12/25/17 04:00 97.7 F 76 19 116/61 97 12/25/17 03:30 79 18 98 12/25/17 00:00 19 12/24/17 23:51 97.9 F 96 H 19 98/58 97 12/24/17 23:30 90 20 100 12/24/17 20:00 20 12/24/17 19:53 97.9 F 116 H 20 158/73 93 L 12/24/17 19:15 115 H 20 92 L 12/24/17 16:00 98.2 F 77 20 114/57 97 12/24/17 15:35 74 18 95 12/24/17 12:00 98.0 F 79 18 107/56 97 12/24/17 11:34 68 20 98 Oxygen-Last 24 hours O2 Percentage 4 Liters = 36% O2 Percentage 4 Liters = 36% O2 Percentage 3 Liters = 32% O2 Percentage 4 Liters = 36% Pain Assessment - Last Documented Pain Intensity 8 Pain Scale Used [facility] Intake and Output: Intake & Output 12/22/17 12/23/17 12/24/17 12/25/17 11:59 11:59 11:59 11:59 Intake Total 1651 3541 Output Total 577 1601 Balance 1029 1940 Weight 60.3 kg 61.5 kg Lab Results: Accuchecks Date 12/24/17 Date 12/24/17 Date 12/24/17 Time 22:00 Time 16:30 Time 11:30 Accucheck Value: 246 Accucheck Value: 252 Accucheck Value: 252 Radiology Exams: Radiology Procedures Category Date Time Status CHEST 1 VIEW (PORTABLE) Stat Exams 12/23/17 17:16 Completed LUMBAR COMPLETE (MIN 4 VIEWS) Routine Exams 12/24/17 13:22 Completed Assessment/Plan (1) Acute exacerbation of chronic obstructive airways disease Current Visit: Yes Status: Acute Onset Date: ~10/12/17 Assessment & Plan: IV abx, nebs and steroids continued Code(s): J44.1 - CHRONIC OBSTRUCTIVE PULMONARY DISEASE W (ACUTE) EXACERBATION (2) Pneumonia Current Visit: Yes Status: Acute Qualifiers: Pneumonia type: due to unspecified organism Laterality: right Lung location: middle lobe of lung Qualified Code(s): J18.1 - Lobar pneumonia, unspecified organism Assessment & Plan: based on exam and clinical picture appears to have a pneumonia, continue rocephin and zithromax Code(s): J18.9 - PNEUMONIA, UNSPECIFIED ORGANISM
[2017-12-25] MEDS: Glucophage 500 MG PO SCH ×2 (08:29→17:15)
[2017-12-25] MEDS: Colace 100 MG PO SCH ×2 (08:29→21:19)
[2017-12-25] MEDS: Protonix 40MG Tablet PO SCH (08:29)
[2017-12-25] MEDS: ELIQUIS 2.5 MG TABLET PO SCH ×2 (08:29→21:19)
[2017-12-25] MEDS: Pepcid 20 MG VIAL IV SCH ×2 (11:38→21:20)
[2017-12-25] MEDS: ROCEPHIN 1 Gm-D5w 50 ml Bag** 1 G/50 ML IVPB IV SCH (11:39)
[2017-12-25] MEDS: Zithromax 500 MG/ 250 ML NaCl Premix 500 MG/250 ML IVPB IV SCH (17:17)
[2017-12-25] MEDS: xanAX 0.5 MG PO PRN (23:01)
[2017-12-25] MEDS: Norco 10/325 MG Tablet PO PRN (23:01)
[2017-12-26] MEDS: DUONEB 0.5-3 MG/3 ml Neb IH SCH ×6 (02:43→23:31)
[2017-12-26] MEDS: solu-MEDROL 40 MG IV SCH ×4 (05:37→23:28)
[2017-12-26 06:01] LABS: BASOPHIL % 0.1 % (0.0-0.4); Basophil (Absolute #) 0.01 (0-0.4); Eosinophil (Absolute #) 0 (0-0.5); Granulocyte Absolute (ANC) 11.11 (1.4-6.9); Granulocytes % 88.7 % (36.0-66.0); Hematocrit 31.2 % (42-50); Lymphocyte (Absolute #) 0.89 (1.0-4.6); Lymphocytes % 7.1 % (24.0-44.0); Mean Corpuscular Hgb Concent. 32.1 g/dl (32-36); Mean Platelet Volume 8.9 fl (6-9.5); Monocyte (Absolute #) 0.51 (0.0-1.3); Monocytes % 4.1 % (0.0-12.0); Platelet Count 219 K/mm3 (150-450); Red Blood Count 3.39 M/mm3 (4.1-5.6); Red Cell Distribution Width 14.4 % (11.5-14.0); White Blood Count 12.5 K/mm3 (4.0-10.5)
[2017-12-26 06:04] LABS: Mean Corpuscular Hemoglobin 29.4 pg (26-32)
[2017-12-26 06:07] LABS: ANION GAP 11.5 MEQ/L (5-15); BLOOD UREA NITROGEN 22 mg/dL (9-20); CHLORIDE 109 mmol/L (98-107); Calcium 8.9 mg/dL (8.4-10.2); Carbon Dioxide 26 mmol/L (22-30); Creatinine 1 0.81 mg/dL (0.66-1.25); Glucose 129 mg/dL (74-106); SODIUM 142 mmol/L (137-145)
[2017-12-26] MEDS: Advair Hfa 230/21 Mcg COMMON CANISTER IH SCH ×2 (07:16→19:49)
[2017-12-26] MEDS: Glucophage 500 MG PO SCH ×2 (07:51→17:32)
--- NOTE | 2017-12-26 08:22 | PCM.NOTE ---
Date and Time: 12/26/17 08 Subjective Assessment: patient continues to have shortness of breath. no other problems or concerns. tolerating po Objective Exam General Appearance: no apparent distress, alert Respiratory Exam: crackles/rales, rhonchi Cardiovascular Exam: regular rate/rhythm, normal heart sounds Gastrointestinal/Abdomen Exam: soft, No tenderness, No mass Extremity Exam: normal inspection, normal range of motion OBJECTIVE DATA Vital Signs: Vital Signs - 24 hr Temp Pulse Resp BP Pulse Ox 12/26/17 07:52 18 12/26/17 07:02 97.8 F 72 18 157/77 100 12/26/17 07:00 70 22 98 12/26/17 04:00 97.5 F 83 24 126/66 98 12/26/17 00:00 97.7 F 87 24 143/67 95 12/25/17 22:48 81 20 97 12/25/17 20:00 98.1 F 81 22 145/82 96 12/25/17 18:52 84 20 95 12/25/17 16:00 98.6 F 81 19 133/64 100 12/25/17 14:38 80 24 99 12/25/17 12:00 98.1 F 78 19 124/59 98 12/25/17 11:00 76 20 Oxygen-Last 24 hours O2 Percentage 5 Liters = 40% O2 Percentage 5 Liters = 40% O2 Percentage 5 Liters = 40% O2 Percentage 5 Liters = 40% O2 Percentage 4 Liters = 36% O2 Percentage 4 Liters = 36% Pain Assessment - Last Documented Pain Intensity 0 Pain Scale Used 0-10 Pain Scale,FLACC Intake and Output: Intake & Output 12/23/17 12/24/17 12/25/17 12/26/17 11:59 11:59 11:59 11:59 Intake Total 1654 3781 1551 Output Total 625 2000 1999 Balance 1029 1780 -449 Weight 60.3 kg 61.5 kg 62.6 kg Lab Results: Accuchecks Date 12/26/1712/25/17 Date 12/25/1712/25/17 Time 07:51 Time 22:00 Time 16:30 Time 11:30 Accucheck Value: 78 Accucheck Value: 182 Accucheck Value: 183 Accucheck Value: 173 Lab Results-Last 24 Hours 12/25/17 12/26/1718 Range/Units 05:15 05:42 05:42 WBC 12.5 H (4.0-10.5) K/mm3 RBC 3.39 L (4.1-5.6) M/mm3 Hgb 10.0 L (12.5-18.0) gm/dl Hct 31.2 L (42-50) % MCV 92.0 (78-100) fl MCH 29.4 (26-32) pg MCHC 32.1 (32-36) g/dl RDW 14.4 H (11.5-14.0) % Plt Count 219 (150-450) K/mm3 MPV 8.9 (6-9.5) fl Gran % 88.7 H (36.0-66.0) % Eos # (Auto) 0 (0-0.5) Absolute Lymphs (auto) 0.89 L (1.0-4.6) Absolute Monos (auto) 0.51 (0.0-1.3) Lymphocytes % 7.1 L (24.0-44.0) % Monocytes % 4.1 (0.0-12.0) % Eosinophils % 0.0 (0.00-5.0) % Basophils % 0.1 (0.0-0.4) % Absolute Granulocytes 11.11 H (1.4-6.9) Basophils # 0.01 (0-0.4) Sodium 142 (137-145) mmol/L Potassium 4.0 (3.5-5.1) mmol/L Chloride 109 H (98-107) mmol/L Carbon Dioxide 26 (22-30) mmol/L Anion Gap 11.5 (5-15) MEQ/L BUN 22 H (9-20) mg/dL Creatinine 0.81 (0.66-1.25) mg/dL Estimated GFR > 60.0 ML/MIN Glucose 129 H (74-106) mg/dL Hemoglobin A1c 6.94 H (4.5-6.0) % Calcium 8.9 (8.4-10.2) mg/dL Radiology Exams: Radiology Procedures Category Date Time Status LUMBAR COMPLETE (MIN 4 VIEWS) Routine Exams 12/24/17 13:22 Completed Assessment/Plan (1) Pneumonia Current Visit: Yes Status: Acute Qualifiers: Pneumonia type: due to unspecified organism Laterality: right Lung location: middle lobe of lung Qualified Code(s): J18.1 - Lobar pneumonia, unspecified organism Assessment & Plan: continue rocephin/zithromax, nebs and steroids. Code(s): J18.9 - PNEUMONIA, UNSPECIFIED ORGANISM (2) Acute exacerbation of chronic obstructive airways disease Current Visit: Yes Status: Acute Onset Date: ~10/12/17 Code(s): J44.1 - CHRONIC OBSTRUCTIVE PULMONARY DISEASE W (ACUTE) EXACERBATION
[2017-12-26] MEDS: Pepcid 20 MG VIAL IV SCH ×2 (09:20→22:20)
[2017-12-26] MEDS: Protonix 40MG Tablet PO SCH (09:22)
[2017-12-26] MEDS: Colace 100 MG PO SCH ×2 (09:22→22:20)
[2017-12-26] MEDS: ELIQUIS 2.5 MG TABLET PO SCH ×2 (09:23→22:20)
[2017-12-26] MEDS: ROCEPHIN 1 Gm-D5w 50 ml Bag** 1 G/50 ML IVPB IV SCH (09:24)
[2017-12-26] MEDS: Zithromax 500 MG/ 250 ML NaCl Premix 500 MG/250 ML IVPB IV SCH (17:33)
[2017-12-26] MEDS: Phenergan 25 MG INJ IV PRN (18:58)
[2017-12-26] MEDS: xanAX 0.5 MG PO PRN (22:20)
[2017-12-26] MEDS: Norco 10/325 MG Tablet PO PRN (22:20)
[2017-12-27] MEDS: DUONEB 0.5-3 MG/3 ml Neb IH SCH ×6 (03:42→23:36)
[2017-12-27 05:45] LABS: BASOPHIL % 0.1 % (0.0-0.4); Basophil (Absolute #) 0.01 (0-0.4); Eosinophil (Absolute #) 0 (0-0.5); Granulocyte Absolute (ANC) 10.39 (1.4-6.9); Granulocytes % 90.4 % (36.0-66.0); Hematocrit 30.3 % (42-50); Hemoglobin 9.7 gm/dl (12.5-18.0); Lymphocyte (Absolute #) 0.68 (1.0-4.6); Lymphocytes % 5.9 % (24.0-44.0); Mean Cell Volume 92.4 fl (78-100); Mean Platelet Volume 8.6 fl (6-9.5); Monocyte (Absolute #) 0.41 (0.0-1.3); Monocytes % 3.6 % (0.0-12.0); Platelet Count 218 K/mm3 (150-450); Red Blood Count 3.28 M/mm3 (4.1-5.6); Red Cell Distribution Width 14.5 % (11.5-14.0); White Blood Count 11.5 K/mm3 (4.0-10.5)
[2017-12-27 05:51] LABS: Mean Corpuscular Hemoglobin 29.5 pg (26-32)
[2017-12-27 05:58] LABS: ALBUMIN 3.2 g/dL (3.5-5.0); ALKALINE PHOSPHATASE 55 U/L (38-126); ANION GAP 11.7 MEQ/L (5-15); BLOOD UREA NITROGEN 23 mg/dL (9-20); CHLORIDE 108 mmol/L (98-107); Calcium 8.9 mg/dL (8.4-10.2); Carbon Dioxide 27 mmol/L (22-30); Creatinine 1 0.75 mg/dL (0.66-1.25); Glucose 188 mg/dL (74-106); Potassium 4.1 mmol/L (3.5-5.1); SGOT/AST 16 U/L (17-59); SGPT/ALT 17 U/L (0-50); SODIUM 143 mmol/L (137-145); Total Protein 5.4 g/dL (6.3-8.2)
[2017-12-27] MEDS: Advair Hfa 230/21 Mcg COMMON CANISTER IH SCH ×2 (07:06→19:38)
[2017-12-27] MEDS: solu-MEDROL 40 MG IV SCH ×3 (07:32→17:04)
[2017-12-27] MEDS: Glucophage 500 MG PO SCH ×2 (07:32→17:04)
--- NOTE | 2017-12-27 08:08 | PCM.NOTE ---
Date and Time: 12/27/17805 Subjective Assessment: patient still c/o significant cough with no sputum production. short of breath, did not sleep well last night. Objective Exam General Appearance: no apparent distress, alert Skin Exam: normal color, warm, dry Respiratory Exam: normal breath sounds, lungs clear, No respiratory distress Cardiovascular Exam: regular rate/rhythm, normal heart sounds Gastrointestinal/Abdomen Exam: soft, No tenderness, No mass Extremity Exam: normal inspection, normal range of motion OBJECTIVE DATA Vital Signs: Vital Signs - 24 hr Temp Pulse Resp BP Pulse Ox 12/27/17 07:00 72 22 98 12/27/17 06:47 98.2 F 75 20 135/77 99 12/27/17 04:00 97.4 F 81 18 137/71 97 12/27/17 03:42 81 18 97 12/27/17 00:00 97.6 F 86 20 135/66 98 12/26/17 23:33 87 18 97 12/26/17 20:00 98.0 F 92 H 18 127/65 98 12/26/17 19:50 96 H 18 97 12/26/17 16:00 98.1 F 82 18 133/72 97 12/26/17 15:00 81 18 98 12/26/17 12:00 18 12/26/17 11:28 98.9 F 82 20 184/85 98 12/26/17 11:00 76 20 98 Oxygen-Last 24 hours O2 Percentage 5 Liters = 40% O2 Percentage 5 Liters = 40% O2 Percentage 5 Liters = 40% O2 Percentage 5 Liters = 40% O2 Percentage 4 Liters = 36% O2 Percentage 5 Liters = 40% Pain Assessment - Last Documented Pain Intensity 0 Pain Scale [facility] Intake and Output: Intake & Output 12/24/17 12/25/17 12/26/17 12/27/17 11:59 11:59 11:59 11:59 Intake Total 1658 4501 1911 2440 Output Total 234 5684 2403 6960 Balance 9474 2083 -102 -493 Weight 60.3 kg 61.5 kg 62.6 kg 60.8 kg Lab Results: Accuchecks Date 12/26/17 Date 12/26/17 Date 12/26/17 Time 22:00 Time 17:29 Time 11:20 Accucheck Value: 138 Accucheck Value: 164 Accucheck Value: 185 Lab Results-Last 24 Hours 12/27/17 12/27/17 Range/Units 05:15 05:15 WBC 11.5 H (4.0-10.5) K/mm3 RBC 3.28 L (4.1-5.6) M/mm3 Hgb 9.7 L (12.5-18.0) gm/dl Hct 30.3 L (42-50) % MCV 92.4 (78-100) fl MCH 29.5 (26-32) pg MCHC 32.0 (32-36) g/dl RDW 14.5 H (11.5-14.0) % Plt Count 218 (150-450) K/mm3 MPV 8.6 (6-9.5) fl Gran % 90.4 H (36.0-66.0) % Eos # (Auto) 0 (0-0.5) Absolute Lymphs (auto) 0.68 L (1.0-4.6) Absolute Monos (auto) 0.41 (0.0-1.3) Lymphocytes % 5.9 L (24.0-44.0) % Monocytes % 3.6 (0.0-12.0) % Eosinophils % 0.0 (0.00-5.0) % Basophils % 0.1 (0.0-0.4) % Absolute Granulocytes 10.39 H (1.4-6.9) Basophils # 0.01 (0-0.4) Sodium 143 (137-145) mmol/L Potassium 4.1 (3.5-5.1) mmol/L Chloride 108 H (98-107) mmol/L Carbon Dioxide 27 (22-30) mmol/L Anion Gap 11.7 (5-15) MEQ/L BUN 23 H (9-20) mg/dL Creatinine 0.75 (0.66-1.25) mg/dL Estimated GFR > 60.0 ML/MIN Glucose 188 H (74-106) mg/dL Calcium 8.9 (8.4-10.2) mg/dL Total Bilirubin 0.30 (0.2-1.3) mg/dL AST 16 L (17-59) U/L ALT 17 (0-50) U/L Alkaline Phosphatase 55 (38-126) U/L Serum Total Protein 5.4 L (6.3-8.2) g/dL Albumin 3.2 L (3.5-5.0) g/dL Multi-Disciplinary Progress Notes: Multi-Disciplinary Progress Notes 12/26/17 09:20 (created 12/26/17 13:54) Case Management Note by Justa Moore REVIEWED DISCHARGE PLAN. CONTINUES TO PLAN TO RETURN HOME TO PRE EPISODIC LEVEL OF [place]. HAS ALL NECESSARY DME AT HOME, INCLUDING HOME OXYGEN. FAMILY AT HOME THAT ASSIST PRN. DENIES ADDNL NEEDS AT PRESENT TIME. WILL FOLLOW FOR ALL DC NEEDS. Initialized on 12/26/17 13:54 - END OF NOTE Assessment/Plan (1) Pneumonia Current Visit: Yes Status: Acute Qualifiers: Pneumonia type: due to unspecified organism Laterality: right Lung location: middle lobe of lung Qualified Code(s): J18.1 - Lobar pneumonia, unspecified organism Assessment & Plan: rocephin and zithromax continued, nebs Code(s): J18.9 - PNEUMONIA, UNSPECIFIED ORGANISM (2) Acute exacerbation of chronic obstructive airways disease Current Visit: Yes Status: Acute Onset Date: ~10/12/17 Assessment & Plan: continue IV solu medrol, nebs and abx Code(s): J44.1 - CHRONIC OBSTRUCTIVE PULMONARY DISEASE W (ACUTE) EXACERBATION
[2017-12-27] MEDS: ELIQUIS 2.5 MG TABLET PO SCH ×2 (08:45→22:39)
[2017-12-27] MEDS: NovoLOG Insulin SQ PRN ×2 (08:45→17:04)
[2017-12-27] MEDS: Protonix 40MG Tablet PO SCH (08:45)
[2017-12-27] MEDS: Pepcid 20 MG VIAL IV SCH ×2 (08:45→22:39)
[2017-12-27] MEDS: ROCEPHIN 1 Gm-D5w 50 ml Bag** 1 G/50 ML IVPB IV SCH (08:45)
[2017-12-27] MEDS: Colace 100 MG PO SCH ×2 (08:46→22:39)
[2017-12-27] MEDS: Zithromax 500 MG/ 250 ML NaCl Premix 500 MG/250 ML IVPB IV SCH (17:04)
[2017-12-27] MEDS: Norco 10/325 MG Tablet PO PRN (22:39)
[2017-12-27] MEDS: xanAX 0.5 MG PO PRN (22:41)
[2017-12-28] MEDS: solu-MEDROL 40 MG IV SCH ×5 (00:13→23:57)
[2017-12-28] MEDS: DUONEB 0.5-3 MG/3 ml Neb IH SCH ×6 (03:16→23:35)
[2017-12-28 05:39] LABS: Basophil (Absolute #) 0 (0-0.4); Eosinophil (Absolute #) 0 (0-0.5); Granulocyte Absolute (ANC) 10.65 (1.4-6.9); Granulocytes % 89.8 % (36.0-66.0); Hemoglobin 10.4 gm/dl (12.5-18.0); Lymphocyte (Absolute #) 0.73 (1.0-4.6); Lymphocytes % 6.2 % (24.0-44.0); Mean Corpuscular Hgb Concent. 32.5 g/dl (32-36); Mean Platelet Volume 8.5 fl (6-9.5); Monocyte (Absolute #) 0.48 (0.0-1.3); Platelet Count 215 K/mm3 (150-450); Red Blood Count 3.48 M/mm3 (4.1-5.6); Red Cell Distribution Width 14.2 % (11.5-14.0); White Blood Count 11.9 K/mm3 (4.0-10.5)
[2017-12-28 05:47] LABS: Mean Corpuscular Hemoglobin 29.8 pg (26-32)
[2017-12-28 05:55] LABS: ALBUMIN 3.3 g/dL (3.5-5.0); ALKALINE PHOSPHATASE 56 U/L (38-126); ANION GAP 9.3 MEQ/L (5-15); BLOOD UREA NITROGEN 23 mg/dL (9-20); CHLORIDE 104 mmol/L (98-107); Calcium 8.7 mg/dL (8.4-10.2); Carbon Dioxide 31 mmol/L (22-30); Creatinine 1 0.74 mg/dL (0.66-1.25); Glucose 197 mg/dL (74-106); Potassium 4.2 mmol/L (3.5-5.1); SGOT/AST 16 U/L (17-59); SGPT/ALT 18 U/L (0-50); SODIUM 140 mmol/L (137-145); Total Protein 5.7 g/dL (6.3-8.2)
[2017-12-28] MEDS: Advair Hfa 230/21 Mcg COMMON CANISTER IH SCH ×2 (07:05→19:32)
[2017-12-28 07:18] LABS: ANISOCYTOSIS 1+; Lymphocytes 6 % (24-44); Monocyte 4 % (0.0-12.0); Neutrophils 90 % (36.-66.); Platelet Estimate NORMAL (NORMAL); Total Cells Counted 100
--- NOTE | 2017-12-28 08:23 | PCM.NOTE ---
Date and Time: 12/28/17820 Subjective Assessment: breathing improved, patient complained of trouble swallowing and nursing requested order for swallow eval. speech recommends esophagram but apparently equipment is not functional and cannot be done so patient is sitting NPO at this time. uncertain when repairs will be complete Objective Exam General Appearance: thin Neurologic Exam: alert, oriented x 3 Skin Exam: normal color, warm, dry Respiratory Exam: crackles/rales, rhonchi Cardiovascular Exam: regular rate/rhythm, normal heart sounds Gastrointestinal/Abdomen Exam: soft, No tenderness, No mass Extremity Exam: normal inspection, normal range of motion OBJECTIVE DATA Vital Signs: Vital Signs - 24 hr Temp Pulse Resp BP Pulse Ox 12/28/17 07:15 97.5 F 75 18 139/70 100 12/28/17 07:00 74 18 98 12/28/17 04:00 97.9 F 78 18 134/72 97 12/28/17 03:16 78 18 97 12/28/17 00:25 20 12/28/17 00:00 97.6 F 76 20 144/76 99 12/27/17 23:36 76 20 99 12/27/17 20:00 97.9 F 85 22 127/61 97 12/27/17 19:38 84 18 97 12/27/17 16:00 81 20 128/67 98 12/27/17 15:00 81 20 98 12/27/17 11:50 20 12/27/17 11:49 98.2 F 80 20 154/80 98 12/27/17 11:00 81 22 98 Oxygen-Last 24 hours O2 Percentage 5 Liters = 40% O2 Percentage 5 Liters = 40% O2 Percentage 5 Liters = 40% O2 Percentage 5 Liters = 40% O2 Percentage 5 Liters = 40% Oxygen Flowrate (L/min)-RT 5 Pain Assessment - Last Documented Pain Intensity 4 Pain Scale Used 0-10 Pain Scale Intake and Output: Intake & Output 12/25/17 12/26/17 12/27/17 12/28/17 11:59 11:59 11:59 11:59 Intake Total 7751 1911 2560 1120 Output Total 2000 2402 2390 1950 Balance 3969 -889 -795 -752 Weight 61.5 kg 62.6 kg 60.8 kg 59 kg Lab Results: Accuchecks Date 12/27/17 Date 12/27/17 Date 12/27/17 Time 21:30 Time 11:30 Accucheck Value: 186 Accucheck Value: 131 Accucheck Value: 203 Accucheck Value: 138 Lab Results-Last 24 Hours 12/28/17 12/28/17 Range/Units 05:25 05:25 WBC 11.9 H (4.0-10.5) K/mm3 RBC 3.48 L (4.1-5.6) M/mm3 Hgb 10.4 L (12.5-18.0) gm/dl Hct 32.0 L (42-50) % MCV 92.0 (78-100) fl MCH 29.8 (26-32) pg MCHC 32.5 (32-36) g/dl RDW 14.2 H (11.5-14.0) % Plt Count 215 (150-450) K/mm3 MPV 8.5 (6-9.5) fl Gran % 89.8 H (36.0-66.0) % Eos # (Auto) 0 (0-0.5) Absolute Lymphs (auto) 0.73 L (1.0-4.6) Absolute Monos (auto) 0.48 (0.0-1.3) Lymphocytes % 6.2 L (24.0-44.0) % Monocytes % 4.0 (0.0-12.0) % Eosinophils % 0.0 (0.00-5.0) % Basophils % 0.0 (0.0-0.4) % Absolute Granulocytes 10.65 H (1.4-6.9) Segmented Neutrophils 90 H (36.-66.) % Lymphocytes (Manual) 6 L (24-44) % Monocytes (Manual) 4 (0.0-12.0) % Basophils # 0 (0-0.4) Platelet Estimate NORMAL (NORMAL) RBC Morphology ABNORMAL Anisocytosis 1+ Sodium 140 (137-145) mmol/L Potassium 4.2 (3.5-5.1) mmol/L Chloride 104 (98-107) mmol/L Carbon Dioxide 31 H (22-30) mmol/L Anion Gap 9.3 (5-15) MEQ/L BUN 23 H (9-20) mg/dL Creatinine 0.74 (0.66-1.25) mg/dL Estimated GFR > 60.0 ML/MIN Glucose 197 H (74-106) mg/dL Calcium 8.7 (8.4-10.2) mg/dL Total Bilirubin 0.30 (0.2-1.3) mg/dL AST 16 L (17-59) U/L ALT 18 (0-50) U/L Alkaline Phosphatase 56 (38-126) U/L Serum Total Protein 5.7 L (6.3-8.2) g/dL Albumin 3.3 L (3.5-5.0) g/dL Radiology Exams: Radiology Procedures Category Date Time Status BARIUM SWALLOW ESOPHOGRAM Urgent Exams 12/28/17 08:00 Ordered Multi-Disciplinary Progress Notes: Multi-Disciplinary Progress Notes 12/27/17 10:25 (created 12/27/17 12:25) Case Management Note by Justa Moore REVIEWED DISCHARGE PLAN, REPORTS NOT FEELING WELL TODAY. DENIES [facility] NEEDS FOR DISCHARGE. DID DISCUSS C SERVICES FOR [facility] SUPPORT ON DISCHARGE, PT DENIES NEED. HAS USED IN THE PAST BUT DOES NOT FEEL THAT IT IS NECESSARY AT THIS TIME. PLANS TO RETURN HOME WITH FAMILY TO PRE EPISODIC LEVEL OF [place]. HAS BEEN MODERATELY INDEPENDENT, WEARS OXYGEN 02/01, HAS A WALKER BUT ONLY USES PRN. WILL CONTINUE TO FOLLOW AND ASSESS FOR ALL DC NEEDS. Initialized on 12/27/17 12:25 - END OF NOTE Assessment/Plan (1) Pneumonia Current Visit: Yes Status: Acute Qualifiers: Pneumonia type: due to unspecified organism Laterality: right Lung location: middle lobe of lung Qualified Code(s): J18.1 - Lobar pneumonia, unspecified organism Assessment & Plan: on rocephin and zithromax Code(s): J18.9 - PNEUMONIA, UNSPECIFIED ORGANISM (2) Acute exacerbation of chronic obstructive airways disease Current Visit: Yes Status: Acute Onset Date: ~10/12/17 Code(s): J44.1 - CHRONIC OBSTRUCTIVE PULMONARY DISEASE W (ACUTE) EXACERBATION (3) Dysphagia Current Visit: Yes Status: Acute Assessment & Plan: awaiting esophagram, this is not a new complaint. will allow him to eat at this time. Code(s): R13.10 - DYSPHAGIA, UNSPECIFIED
[2017-12-28] MEDS: ROCEPHIN 1 Gm-D5w 50 ml Bag** 1 G/50 ML IVPB IV SCH (08:49)
[2017-12-28] MEDS: ELIQUIS 2.5 MG TABLET PO SCH ×2 (08:49→21:22)
[2017-12-28] MEDS: Pepcid 20 MG VIAL IV SCH ×2 (08:50→21:22)
[2017-12-28] MEDS: Glucophage 500 MG PO SCH ×2 (08:50→17:02)
[2017-12-28] MEDS: Protonix 40MG Tablet PO SCH ×2 (08:50→21:22)
[2017-12-28] MEDS: Colace 100 MG PO SCH ×2 (08:50→21:22)
[2017-12-28] MEDS: NovoLOG Insulin SQ PRN ×2 (11:51→17:03)
[2017-12-28] MEDS: Zithromax 500 MG/ 250 ML NaCl Premix 500 MG/250 ML IVPB IV SCH (17:02)
[2017-12-28] MEDS: xanAX 0.5 MG PO PRN (21:22)
[2017-12-28] MEDS: Norco 10/325 MG Tablet PO PRN (21:28)
[2017-12-29] MEDS: DUONEB 0.5-3 MG/3 ml Neb IH SCH ×3 (03:38→10:38)
[2017-12-29] MEDS: solu-MEDROL 40 MG IV SCH (05:39)
[2017-12-29] MEDS: Advair Hfa 230/21 Mcg COMMON CANISTER IH SCH (06:35)
[2017-12-29 06:41] VITALS: O2SAT 97
[2017-12-29] MEDS: NovoLOG Insulin SQ PRN (07:44)
[2017-12-29 08:01] VITALS: BP 151/74
--- NOTE | 2017-12-29 08:27 | PCM.DS ---
Discharge Summary Date of Admission: 12/23/17 19:57 Admitting Physician: IBETH JAEGER Primary Care Provider: IBETH JAEGER Allergies Allergies No Known Drug Allergies Allergy (Verified 12/23/17 20:35) Hospital Summary - Hospital Course Hospital Course: patient was admitted with cough and shortness of breath, has been treated for pneumonia and copd exacerbation. was having difficulty swallowing, improved with increasing protonix. unable to have esophagram due to equipment issues, will be done as an outpatient. - Vitals & Intake/Output Vital Signs: Vital Signs Temperature 97.4 F 12/29/17 08:00 Pulse Rate 75 12/29/17 08:00 Respiratory Rate 18 12/29/17 08:00 Blood Pressure 151/74 12/29/17 08:00 O2 Sat by Pulse Oximetry 97 12/29/17 08:00 Oxygen-Last Documented O2 Percentage 5 Liters = 40% Intake & Output: Intake & Output 12/26/17 12/27/17 12/28/17 12/29/17 11:59 11:59 11:59 11:59 Intake Total 1911 2560 1360 980 Output Total 2400 2950 1950 1400 Balance -489 -390 -590 -420 Weight 62.6 kg 60.8 kg 59 kg 59.4 kg - Lab Result Diagrams: 12/28/17 05:25 12/28/17 05:25 Lab Results-Last 24 Hrs: Accuchecks Date 12/29/17 Date 12/28/17 Time 07:48 Time 21:12 Accucheck Value: 212 Accucheck Value: 121 Accucheck Value: 237 Accucheck Value: 258 Micro Results-Entire Visit: Microbiology 12/23/17 18:05 Blood Culture Gram Stain - Final Blood Not Reportable Blood Culture - Final NO GROWTH 12/23/17 18:04 Blood Culture Gram Stain - Final Blood Not Reportable Blood Culture - Final NO GROWTH Accuchecks Date 12/29/17 Date 12/28/17 Time 07:48 Time 21:12 Accucheck Value: 212 Accucheck Value: 121 Accucheck Value: 237 Accucheck Value: 258 - Radiology Exams Ordered Rad Exams-Entire Visit: Radiology Procedures Category Date Time Status BARIUM SWALLOW ESOPHOGRAM Urgent Exams 12/29/17 08:00 Ordered - Procedures and Test Procedures and Tests throughout Hospitalization: Therapy Orders & Screens 12/23/17 17:17 Respiratory Nebulizer STAT Comment: Diagnosis: Shortness of Breath 12/23/17 19:16 Oxygen NASAL CANNULA 4 lpm Comment: Diagnosis: Shortness of Breath 12/23/17 21:08 neb [Respiratory Nebulizer] Q4H Comment: DUO Q4 Diagnosis: Shortness of Breath 12/23/17 21:09 Respiratory MDI Q12H Comment: ADV 230/21 Diagnosis: Shortness of Breath Discharge Exam General Appearance: no apparent distress, alert, thin Skin Exam: normal color, warm, dry Respiratory Exam: crackles/rales, rhonchi Cardiovascular Exam: regular rate/rhythm, normal heart sounds Gastrointestinal/Abdomen Exam: soft, No tenderness, No mass Extremity Exam: normal inspection, normal range of motion Final Diagnosis/Problem List - Final Discharge Diagnosis/Problem (1) Pneumonia Current Visit: Yes Status: Acute Assessment & Plan: home on augmentin and prednisone taper (2) Acute exacerbation of chronic obstructive airways disease Current Visit: Yes Status: Acute Onset Date: ~10/12/17 (3) Dysphagia Current Visit: Yes Status: Acute Assessment & Plan: will order outpatient esophagram - Discharge Disposition: Home, Self-Care Condition: Stable Prescriptions: New Amox Tr/Potass Clav. 500 mg [Augmentin 500-125 Tablet] 1 each PO TID # 21 tablet PANTOPRAZOLE 40 mg Tablet [Protonix 40MG Tablet] 40 mg PO BID #60 tab Continue Metformin HCl 500 mg [Glucophage 500 MG] 500 mg PO BID Apixaban [Eliquis 5 mg Tablet] 5 mg PO BID Ipratropium/Albuterol Sulfate [Iprat-Albut 0.5-3(2.5) mg/3 ml] 3 ml IH Q4H Alprazolam 0.5 mg PO HS PRN PRN #30 tablet PRN Reason: Anxiety Hydrocodone/APAP 10/325 mg [[place] 10/325 MG Tablet] 1 tab PO Q4H PRN PRN PRN Reason: Pain Prednisone 20 mg [Deltasone 20 mg] 20 mg PO DAILY #18 tablet Discontinued Omeprazole 20 MG [Prilosec 20 mg] 20 mg PO DAILY Follow up with: IBETH JAEGER MD [Primary Care Provider] - 1 Week
[2017-12-29] MEDS: Glucophage 500 MG PO SCH (08:37)
[2017-12-29] MEDS: ROCEPHIN 1 Gm-D5w 50 ml Bag** 1 G/50 ML IVPB IV SCH (09:04)
[2017-12-29] MEDS: ELIQUIS 2.5 MG TABLET PO SCH (09:05)
[2017-12-29] MEDS: Pepcid 20 MG VIAL IV SCH (09:05)
[2017-12-29] MEDS: Protonix 40MG Tablet PO SCH (09:06)
[2017-12-29] MEDS: Colace 100 MG PO SCH (09:06)
[2017-12-29 10:43] VITALS: PULSE 80
== END 2017-12-29 11:45 | disposition home or self-care (01) | DRG 194 ==
LOC: ED 16:59 → MED SURG 19:57
PROVIDERS: ADMIT Family Medicine; ATTEND Family Medicine
DX: J18.9 Pneumonia, unspecified organism (principal); J44.1 Chronic obstructive pulmonary disease with (acute) exacerbation; R13.10 Dysphagia, unspecified; E11.9 Type 2 diabetes mellitus without complications; Z79.4 Long term (current) use of insulin; Z86.711 Personal history of pulmonary embolism; Z79.01 Long term (current) use of anticoagulants; M19.90 Unspecified osteoarthritis, unspecified site; J60 Coalworker's pneumoconiosis; K59.00 Constipation, unspecified; M54.5 Low back pain; Z79.899 Other long term (current) drug therapy
CPT/HCPCS: 36000; 36415; 36600; 71045; 72110; 80048; 80053; 82375; 82803; 83036; 83605; 83735; 83880; 84484; 85025; 85027; 85379; 85610; 85730; 87040; 87631; 93005; 93041; 94150; 94640; 94760; 96360; 96365; 96374; 99285; J0456; J0696; J2550; J2920; J2930; A9270-GY

== ENCOUNTER 2018-01-28 15:05 | Inpatient (IN) | payer BLACK LUNG, MEDICARE, OTHER ==
[2018-01-28] MEDS ORDERED: ROCEPHIN 1 Gm-D5w 50 ml Bag** 1 G/50 ML IVPB IV STA (15:23)
[2018-01-28] MEDS ORDERED: Zithromax 500 MG/ 250 ML NaCl Premix 500 MG/250 ML IVPB IV STA (15:23)
[2018-01-28] MEDS ORDERED: DUONEB 0.5-3 MG/3 ml Neb IH ONE ×2 (15:23→15:28)
[2018-01-28] MEDS ORDERED: solu-MEDROL 125 MG IV ONE (15:23)
[2018-01-28] MEDS ORDERED: Sodium Chloride 0.9% 1000 ML 1,000 ML ONE (15:29)
[2018-01-28] MEDS ORDERED: Zithromax 500 MG/ 250 ML NaCl Premix 500 MG/250 ML IVPB IV ONE (15:29)
[2018-01-28] MEDS ORDERED: solu-MEDROL 125 MG ONE (15:29)
[2018-01-28] MEDS ORDERED: Sodium Chloride 0.9% 1000 ML 1,000 ML IV SCH (15:30)
[2018-01-28] MEDS ORDERED: ROCEPHIN 1 Gm-D5w 50 ml Bag** 1 G/50 ML IVPB IV ONE (15:30)
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
[2018-01-28 16:20] LABS: BASOPHIL % 0.1 % (0.0-0.4); Basophil (Absolute #) 0.01 (0-0.4); Eosinophil % 0.1 % (0.00-5.0); Eosinophil (Absolute #) 0.01 (0-0.5); Granulocyte Absolute (ANC) 8.48 (1.4-6.9); Granulocytes % 87.5 % (36.0-66.0); Hematocrit 32.1 % (42-50); Hemoglobin 10.5 gm/dl (12.5-18.0); Lymphocyte (Absolute #) 0.93 (1.0-4.6); Lymphocytes % 9.6 % (24.0-44.0); Mean Cell Volume 91.5 fl (78-100); Mean Corpuscular Hemoglobin 29.9 pg (26-32); Mean Corpuscular Hgb Concent. 32.7 g/dl (32-36); Mean Platelet Volume 8.4 fl (6-9.5); Monocyte (Absolute #) 0.26 (0.0-1.3); Monocytes % 2.7 % (0.0-12.0); Platelet Count 245 K/mm3 (150-450); Red Blood Count 3.51 M/mm3 (4.1-5.6); Red Cell Distribution Width 13.4 % (11.5-14.0); White Blood Count 9.7 K/mm3 (4.0-10.5)
[2018-01-28] MEDS ORDERED: Xopenex 1.25 MG/0.5 ML UD NEBULE IH ONE ×2 (16:28→16:36)
[2018-01-28] MEDS ORDERED: Sodium Chloride 3 ML UD NEBULES IH ONE (16:36)
[2018-01-28 16:46] LABS: ALBUMIN 4.1 g/dL (3.5-5.0); ALKALINE PHOSPHATASE 93 U/L (38-126); ANION GAP 14.7 MEQ/L (5-15); BLOOD UREA NITROGEN 15 mg/dL (9-20); CHLORIDE 105 mmol/L (98-107); Calcium 9.3 mg/dL (8.4-10.2); Carbon Dioxide 26 mmol/L (22-30); Creatinine 1 0.69 mg/dL (0.66-1.25); Glucose 170 mg/dL (74-106); NT PRO BNP 256 pg/mL (0-900); Potassium 4.1 mmol/L (3.5-5.1); SGOT/AST 19 U/L (17-59); SGPT/ALT 18 U/L (0-50); SODIUM 142 mmol/L (137-145)
[2018-01-28] MEDS ORDERED: Xopenex 1.25 MG/0.5 ML UD NEBULE IH PRN (18:20)
[2018-01-28] MEDS ORDERED: Norco 10/325 MG Tablet PO PRN (18:22)
[2018-01-28] MEDS: DUONEB 0.5-3 MG/3 ml Neb IH SCH ×2 (19:00→23:04)
[2018-01-28] MEDS: Advair Hfa 230/21 Mcg COMMON CANISTER IH SCH (20:52)
--- NOTE | 2018-01-28 21:09 | XRAY ---
Indication: Short of breath. Comparison: December 23, 2017. Portable chest unchanged again demonstrates COPD, right lung postsurgical changes, bilateral scattered fibrosis/scarring, and bibasilar pleural effusions/thickening. Heart is not enlarged. Bony thorax intact with mild degenerative changes and old left rib fractures. No new/acute findings.
[2018-01-28] MEDS ORDERED: ELIQUIS 5 MG TABLET PO SCH (22:00)
[2018-01-28] MEDS ORDERED: ELIQUIS 2.5 MG TABLET ONE (22:01)
[2018-01-28] MEDS: NovoLOG Insulin SQ PRN (22:24)
[2018-01-28] MEDS: Protonix 40MG Tablet PO SCH (22:24)
[2018-01-28] MEDS: Sodium Chloride 0.9% 1000 ML 1,000 ML IV SCH (23:38)
[2018-01-28] MEDS: solu-MEDROL 125 MG IV SCH (23:39)
[2018-01-28] MEDS: xanAX 0.5 MG PO PRN (23:39)
[2018-01-29] MEDS: DUONEB 0.5-3 MG/3 ml Neb IH SCH ×6 (03:02→23:16)
[2018-01-29] MEDS: solu-MEDROL 125 MG IV SCH ×4 (05:33→23:09)
[2018-01-29] MEDS: Advair Hfa 230/21 Mcg COMMON CANISTER IH SCH ×2 (07:12→19:07)
[2018-01-29] MEDS: NovoLOG Insulin SQ PRN ×3 (07:49→21:38)
[2018-01-29] MEDS: Glucophage 500 MG PO SCH ×2 (07:49→17:45)
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
[2018-01-29] MEDS: ELIQUIS 2.5 MG TABLET PO SCH ×2 (09:50→20:28)
[2018-01-29] MEDS: ROCEPHIN 1 Gm-D5w 50 ml Bag** 1 G/50 ML IVPB IV SCH (09:50)
[2018-01-29] MEDS: Protonix 40MG Tablet PO SCH ×2 (09:50→20:28)
[2018-01-29] MEDS ORDERED: Protonix 40MG Tablet PO SCH (10:00)
[2018-01-29] MEDS: Zithromax 500 MG/ 250 ML NaCl Premix 500 MG/250 ML IVPB IV SCH (11:11)
[2018-01-29] MEDS: Sodium Chloride 0.9% 1000 ML 1,000 ML IV SCH (20:32)
[2018-01-29] MEDS: xanAX 0.5 MG PO PRN (23:07)
[2018-01-29] MEDS: Norco 10/325 MG Tablet PO PRN (23:07)
[2018-01-30] MEDS: DUONEB 0.5-3 MG/3 ml Neb IH SCH ×6 (02:58→23:00)
[2018-01-30] MEDS: solu-MEDROL 125 MG IV SCH ×4 (05:58→23:35)
[2018-01-30] MEDS: Advair Hfa 230/21 Mcg COMMON CANISTER IH SCH ×2 (06:32→19:15)
--- NOTE | 2018-01-30 08:49 | PCM.NOTE ---
Date and Time: 01/30/1844 Subjective Assessment: Pt breathing is better this morning. [place] po well. Objective Exam General Appearance: no apparent distress, alert Neurologic Exam: oriented x 3, cooperative Skin Exam: normal color, warm, dry, No rash Eye Exam: other (edema inferior to eyes bilat) Neck Exam: normal inspection Respiratory Exam: diminished breath sounds, rhonchi (bilat bases), No wheezing Cardiovascular Exam: regular rate/rhythm, normal heart sounds, No murmur Gastrointestinal/Abdomen Exam: distention (no fluid wave), No tenderness Extremity Exam: No pedal edema, No swelling Back Exam: normal inspection, No rash OBJECTIVE DATA Vital Signs: Vital Signs - 24 hr Temp Pulse Resp BP Pulse Ox 01/30/18 07:17 98.1 F 86 18 133/73 98 01/30/18 06:32 78 22 96 01/30/18 04:00 98.1 F 93 H 24 141/80 96 01/30/18 03:07 78 18 96 01/30/18 00:00 97.9 F 86 22 128/67 96 01/29/18 23:18 81 18 97 01/29/18 20:00 22 01/29/18 19:56 97.9 F 89 24 135/73 97 01/29/18 19:20 96 01/29/18 19:19 83 18 96 01/29/18 16:00 98.3 F 93 H 20 139/75 97 01/29/18 15:04 91 H 18 98 01/29/18 12:00 98.2 F 86 20 122/71 97 01/29/18 11:51 18 01/29/18 11:20 91 H 18 98 Oxygen-Last 24 hours O2 Percentage 4 Liters = 36% O2 Percentage 5 Liters = 40% O2 Percentage 5 Liters = 40% O2 Percentage 5 Liters = 40% O2 Percentage 4 Liters = 36% O2 Percentage 4 Liters = 36% Pain Assessment - Last Documented Pain Intensity 3 Pain Scale Used 0-10 Pain Scale,FLACC Intake and Output: Intake & Output 01/27/18 01/28/18 01/29/18 01/30/18 11:59 11:59 11:59 11:59 Intake Total 1766 1800 Output Total 650 1150 Balance 1116 650 Weight 59.1 kg 61.5 kg Lab Results: Accuchecks Date 01/29/18 Date 01/29/18 Date 01/29/18 Time 21:04 Time 16:30 Time 11:30 Accucheck Value: 226 Accucheck Value: 135 Accucheck Value: 346 Radiology Exams: Radiology Procedures Category Date Time Status CHEST 1 VIEW (PORTABLE) Stat Exams 01/28/18 15:24 Completed Assessment/Plan (1) Acute exacerbation of chronic obstructive airways disease Current Visit: Yes Status: Acute Onset Date: ~01/29/18 Assessment & Plan: On IV rocephin and zithromax. Better. Needs to stay probably several days to recover. on IV steriod q6h (80mg). Code(s): J44.1 - CHRONIC OBSTRUCTIVE PULMONARY DISEASE W (ACUTE) EXACERBATION (2) Chronic hypoxemic respiratory failure Current Visit: No Status: Chronic (3) End stage COPD Current Visit: No Status: Chronic Code(s): J44.9 - CHRONIC OBSTRUCTIVE PULMONARY DISEASE, UNSPECIFIED (4) Hx pulmonary embolism Current Visit: No Status: Chronic Code(s): Z86.711 - PERSONAL HISTORY OF PULMONARY EMBOLISM (5) Anemia Current Visit: Yes Status: Acute Assessment & Plan: recheck in a.m. Code(s): D64.9 - ANEMIA, UNSPECIFIED
[2018-01-30] MEDS: NovoLOG Insulin SQ PRN ×3 (09:54→21:56)
[2018-01-30] MEDS: ROCEPHIN 1 Gm-D5w 50 ml Bag** 1 G/50 ML IVPB IV SCH (09:58)
[2018-01-30] MEDS: ELIQUIS 2.5 MG TABLET PO SCH ×2 (09:58→21:56)
[2018-01-30] MEDS: Glucophage 500 MG PO SCH ×2 (09:58→18:09)
[2018-01-30] MEDS: Protonix 40MG Tablet PO SCH ×2 (09:58→21:56)
[2018-01-30] MEDS: Zithromax 500 MG/ 250 ML NaCl Premix 500 MG/250 ML IVPB IV SCH (10:45)
[2018-01-30] MEDS: Norco 10/325 MG Tablet PO PRN (21:56)
[2018-01-30] MEDS: xanAX 0.5 MG PO PRN (21:57)
[2018-01-31] MEDS: Sodium Chloride 0.9% 1000 ML 1,000 ML IV SCH ×2 (01:36→23:23)
[2018-01-31] MEDS: DUONEB 0.5-3 MG/3 ml Neb IH SCH ×6 (02:34→23:06)
[2018-01-31 06:05] LABS: Hematocrit 30.6 % (42-50); Hemoglobin 9.8 gm/dl (12.5-18.0); Mean Cell Volume 93.9 fl (78-100); Mean Platelet Volume 8.4 fl (6-9.5); Platelet Count 295 K/mm3 (150-450); Red Blood Count 3.26 M/mm3 (4.1-5.6); Red Cell Distribution Width 13.4 % (11.5-14.0); White Blood Count 17.1 K/mm3 (4.0-10.5)
[2018-01-31] MEDS: solu-MEDROL 125 MG IV SCH ×4 (06:18→23:23)
[2018-01-31 06:24] LABS: ANION GAP 13.1 MEQ/L (5-15); BLOOD UREA NITROGEN 23 mg/dL (9-20); CHLORIDE 105 mmol/L (98-107); Calcium 8.7 mg/dL (8.4-10.2); Carbon Dioxide 27 mmol/L (22-30); Creatinine 1 0.69 mg/dL (0.66-1.25); Glucose 212 mg/dL (74-106); SODIUM 142 mmol/L (137-145)
[2018-01-31] MEDS: Advair Hfa 230/21 Mcg COMMON CANISTER IH SCH ×2 (06:34→19:18)
--- NOTE | 2018-01-31 07:08 | PCM.NOTE ---
Date and Time: 01/31/18706 Subjective Assessment: patient still short of breath with minimal exertion but is improving. no new complaints today Objective Exam General Appearance: no apparent distress, cachetic Skin Exam: normal color, warm, dry Respiratory Exam: rhonchi, wheezing Cardiovascular Exam: regular rate/rhythm, normal heart sounds Gastrointestinal/Abdomen Exam: soft, No tenderness, No mass OBJECTIVE DATA Vital Signs: Vital Signs - 24 hr Temp Pulse Resp BP Pulse Ox 01/31/18 06:34 87 20 97 01/31/18 03:49 97.8 F 87 20 150/74 97 01/31/18 02:37 85 20 96 01/31/18 00:00 22 01/30/18 23:40 98.4 F 81 22 162/81 97 01/30/18 23:03 79 20 97 01/30/18 20:00 24 01/30/18 19:35 98.5 F 102 H 24 156/76 95 01/30/18 19:18 93 H 22 94 L 01/30/18 16:00 91 H 18 163/85 98 01/30/18 14:52 86 20 97 01/30/18 12:00 20 01/30/18 11:23 98.2 F 96 H 18 128/75 97 01/30/18 11:16 97 H 20 95 01/30/18 08:00 20 01/30/18 07:17 98.1 F 86 18 133/73 98 Oxygen-Last 24 hours O2 Percentage 5 Liters = 40% O2 Percentage 4 Liters = 36% O2 Percentage 4 Liters = 36% Oxygen Flowrate (L/min)-RT 5 Pain Assessment - Last Documented Pain Intensity 3 Pain Scale Used 0-10 Pain Scale Intake and Output: Intake & Output 01/28/18 01/29/18 01/30/18 01/31/18 11:59 11:59 11:59 11:59 Intake Total 1766 2580 3919 Output Total 650 1550 2575 Balance 1116 1030 1344 Weight 59.1 kg 61.5 kg Lab Results: Accuchecks Date 01/30/18 Date 01/30/18 Date 01/30/18 Date 01/30/18 Time 21:00 Time 16:30 Time 11:30 Time 07:30 Accucheck Value: 198 Accucheck Value: 124 Accucheck Value: 285 Accucheck Value: 215 Lab Results-Last 24 Hours 01/31/18 01/31/18 Range/Units 05:35 05:35 WBC 17.1 H (4.0-10.5) K/mm3 RBC 3.26 L (4.1-5.6) M/mm3 Hgb 9.8 L (12.5-18.0) gm/dl Hct 30.6 L (42-50) % MCV 93.9 (78-100) fl MCH 30.0 (26-32) pg MCHC 32.0 (32-36) g/dl RDW 13.4 (11.5-14.0) % Plt Count 295 (150-450) K/mm3 MPV 8.4 (6-9.5) fl Sodium 142 (137-145) mmol/L Potassium 4.0 (3.5-5.1) mmol/L Chloride 105 (98-107) mmol/L Carbon Dioxide 27 (22-30) mmol/L Anion Gap 13.1 (5-15) MEQ/L BUN 23 H (9-20) mg/dL Creatinine 0.69 (0.66-1.25) mg/dL Estimated GFR > 60.0 ML/MIN Glucose 212 H (74-106) mg/dL Calcium 8.7 (8.4-10.2) mg/dL Assessment/Plan (1) Acute exacerbation of chronic obstructive airways disease Current Visit: Yes Status: Acute Onset Date: ~01/29/18 Assessment & Plan: continue rocephin/zithromax, IV solumedrol and nebs Code(s): J44.1 - CHRONIC OBSTRUCTIVE PULMONARY DISEASE W (ACUTE) EXACERBATION
[2018-01-31] MEDS: Glucophage 500 MG PO SCH ×2 (07:38→17:25)
[2018-01-31] MEDS: NovoLOG Insulin SQ PRN ×4 (07:38→22:51)
[2018-01-31 08:17] LABS: BAND 4 % (0.0-2.0); Lymphocytes 4 % (24-44); Monocyte 1 % (0.0-12.0); Neutrophils 91 % (36.-66.); Total Cells Counted 100
[2018-01-31 08:18] LABS: Platelet Estimate NORMAL (NORMAL)
[2018-01-31 08:20] LABS: ANISOCYTOSIS 1+
[2018-01-31] MEDS: ROCEPHIN 1 Gm-D5w 50 ml Bag** 1 G/50 ML IVPB IV SCH (09:30)
[2018-01-31] MEDS: Zithromax 500 MG/ 250 ML NaCl Premix 500 MG/250 ML IVPB IV SCH (09:32)
[2018-01-31] MEDS: Protonix 40MG Tablet PO SCH ×2 (09:32→22:51)
[2018-01-31] MEDS: ELIQUIS 2.5 MG TABLET PO SCH ×2 (09:32→22:51)
[2018-01-31] MEDS: Norco 10/325 MG Tablet PO PRN (22:51)
[2018-01-31] MEDS: xanAX 0.5 MG PO PRN (22:51)
[2018-02-01] MEDS: DUONEB 0.5-3 MG/3 ml Neb IH SCH ×6 (03:44→23:40)
[2018-02-01] MEDS: solu-MEDROL 125 MG IV SCH ×3 (05:31→17:45)
[2018-02-01] MEDS: Advair Hfa 230/21 Mcg COMMON CANISTER IH SCH ×2 (07:43→19:34)
[2018-02-01] MEDS: Glucophage 500 MG PO SCH ×2 (07:49→17:45)
[2018-02-01] MEDS: NovoLOG Insulin SQ PRN ×3 (07:49→22:34)
[2018-02-01] MEDS: ELIQUIS 2.5 MG TABLET PO SCH ×2 (09:20→22:33)
[2018-02-01] MEDS: Protonix 40MG Tablet PO SCH ×2 (09:20→22:33)
[2018-02-01] MEDS: ROCEPHIN 1 Gm-D5w 50 ml Bag** 1 G/50 ML IVPB IV SCH (09:20)
[2018-02-01] MEDS: Zithromax 500 MG/ 250 ML NaCl Premix 500 MG/250 ML IVPB IV SCH (11:13)
--- NOTE | 2018-02-01 12:03 | PCM.NOTE ---
Date and Time: 02/01/18 1202 Subjective Assessment: patient starting to feel better, cough and breathing are improving. tolerating po intake Objective Exam General Appearance: no apparent distress, thin Respiratory Exam: prolonged expirations, rhonchi Cardiovascular Exam: regular rate/rhythm, normal heart sounds Gastrointestinal/Abdomen Exam: soft, No tenderness, No mass OBJECTIVE DATA Vital Signs: Vital Signs - 24 hr Temp Pulse Resp BP Pulse Ox 02/01/18 07:56 22 02/01/18 07:47 97.6 F 82 22 152/85 97 02/01/18 07:44 59 L 20 98 02/01/18 04:23 98.1 F 76 18 116/70 96 02/01/18 03:56 20 02/01/18 03:44 84 18 97 02/01/18 00:20 98.3 F 74 18 130/71 97 02/01/18 00:00 16 01/31/18 23:07 74 18 97 01/31/18 19:45 18 01/31/18 19:33 98.5 F 73 20 126/69 98 01/31/18 19:20 73 20 96 01/31/18 16:00 97.7 F 80 20 155/76 94 L 01/31/18 14:44 78 20 99 Oxygen-Last 24 hours O2 Percentage 4 Liters = 36% O2 Percentage 4 Liters = 36% O2 Percentage 4 Liters = 36% O2 Percentage 3 Liters = 32% O2 Percentage 5 Liters = 40% Pain Assessment - Last Documented Pain Intensity 1 Pain Scale Used 0-10 Pain Scale Intake and Output: Intake & Output 01/30/18 01/31/18 02/01/18 02/02/18 11:59 11:59 11:59 11:59 Intake Total 2580 4279 4496 Output Total 1550 2875 2350 Balance 1030 1404 2146 Weight 61.5 kg 61.2 kg 64.6 kg Lab Results: Accuchecks Date 02/01/18 Date 01/31/18 Date 01/31/18 Time 07:30 Time 21:49 Time 16:30 Accucheck Value: 201 Accucheck Value: 220 Accucheck Value: 154 Assessment/Plan (1) Acute exacerbation of chronic obstructive airways disease Current Visit: Yes Status: Acute Onset Date: ~01/29/18 Assessment & Plan: cont rocephin/zithromax, nebs and IV solu medrol. improving. hopefully will be ready for discharge in the next 1-2 days Code(s): J44.1 - CHRONIC OBSTRUCTIVE PULMONARY DISEASE W (ACUTE) EXACERBATION
[2018-02-01] MEDS: Sodium Chloride 0.9% 1000 ML 1,000 ML IV SCH (22:33)
[2018-02-01] MEDS: Norco 10/325 MG Tablet PO PRN (22:33)
[2018-02-01] MEDS: xanAX 0.5 MG PO PRN (22:34)
[2018-02-02] MEDS: solu-MEDROL 125 MG IV SCH ×5 (01:52→23:17)
[2018-02-02] MEDS: DUONEB 0.5-3 MG/3 ml Neb IH SCH ×6 (03:47→22:43)
[2018-02-02] MEDS: Advair Hfa 230/21 Mcg COMMON CANISTER IH SCH ×2 (06:37→18:44)
[2018-02-02] MEDS: NovoLOG Insulin SQ PRN ×4 (08:06→23:37)
[2018-02-02] MEDS: Glucophage 500 MG PO SCH ×2 (08:06→16:57)
--- NOTE | 2018-02-02 08:22 | PCM.NOTE ---
Date and Time: 02/02/18820 Subjective Assessment: patient continues to improve, still has some cough and rales in the lung base but overall is walking better and tolerating activity. eating well Objective Exam General Appearance: thin Neurologic Exam: alert, oriented x 3 Skin Exam: normal color, warm, dry Respiratory Exam: rhonchi Cardiovascular Exam: regular rate/rhythm, normal heart sounds Gastrointestinal/Abdomen Exam: soft, No tenderness, No mass Extremity Exam: normal inspection, normal range of motion OBJECTIVE DATA Vital Signs: Vital Signs - 24 hr Temp Pulse Resp BP Pulse Ox 02/02/18 08:00 20 02/02/18 07:19 98 F 70 20 173/89 97 02/02/18 06:42 67 22 96 02/02/18 04:00 98.3 F 74 20 166/96 97 02/02/18 03:48 80 20 97 02/02/18 00:20 98.1 F 76 20 126/73 97 02/01/18 23:41 82 20 97 02/01/18 20:00 98.5 F 81 22 171/91 98 02/01/18 19:36 79 20 95 02/01/18 16:00 98.3 F 77 20 148/85 98 02/01/18 15:33 20 02/01/18 15:17 68 20 98 02/01/18 12:00 98.6 F 86 24 139/78 96 Oxygen-Last 24 hours O2 Percentage 4 Liters = 36% O2 Percentage 4 Liters = 36% O2 Percentage 4 Liters = 36% O2 Percentage 4 Liters = 36% O2 Percentage 4 Liters = 36% O2 Percentage 4 Liters = 36% Pain Assessment - Last Documented Pain Intensity 0 Pain Scale Used 0-10 Pain Scale Intake and Output: Intake & Output 01/30/18 01/31/18 02/01/18 02/02/18 11:59 11:59 11:59 11:59 Intake Total 2580 4279 4496 3243 Output Total 1550 2875 2350 4105 Balance 1030 1404 2146 -862 Weight 61.5 kg 61.2 kg 64.6 kg 164.4 kg Lab Results: Accuchecks Date 02/02/18 Date 02/01/18 Date 02/01/18 Time 16:30 Time 11:30 Accucheck Value: 216 Accucheck Value: 235 Accucheck Value: 106 Accucheck Value: 271 Multi-Disciplinary Progress Notes: Multi-Disciplinary Progress Notes 02/01/18 10:00 (created 02/01/18 12:51) Case Management Note by Justa Moore DISCHARGE PLAN REVIEWED, CONTINUES TO PLAN TO RETURN HOME WITH FAMILY TO PRE EPISODIC LEVEL OF [place]. HAS ALL EQUIPMENT AT HOME THAT HE NEEDS. HOME OXYGEN, WALKER, WHEELCHAIR. INDEPENDENT WITH ADL'S. REPORTS FEELING BETTER TODAY. Initialized on 02/01/18 12:51 - END OF NOTE Assessment/Plan (1) Acute exacerbation of chronic obstructive airways disease Current Visit: Yes Status: Acute Onset Date: ~01/29/18 Assessment & Plan: on rocephin/zithromax, IV solu medrol and nebs. continues to improve. plan 1 more day of IV therapy, likely home tomorrow Code(s): J44.1 - CHRONIC OBSTRUCTIVE PULMONARY DISEASE W (ACUTE) EXACERBATION
[2018-02-02] MEDS: Protonix 40MG Tablet PO SCH ×2 (10:22→16:57)
[2018-02-02] MEDS: ELIQUIS 2.5 MG TABLET PO SCH ×2 (10:22→23:16)
[2018-02-02] MEDS: ROCEPHIN 1 Gm-D5w 50 ml Bag** 1 G/50 ML IVPB IV SCH (10:58)
[2018-02-02] MEDS: Zithromax 500 MG/ 250 ML NaCl Premix 500 MG/250 ML IVPB IV SCH (11:56)
[2018-02-02] MEDS: Sodium Chloride 0.9% 1000 ML 1,000 ML IV SCH (23:15)
[2018-02-02] MEDS: xanAX 0.5 MG PO PRN (23:16)
[2018-02-02] MEDS: Norco 10/325 MG Tablet PO PRN (23:37)
[2018-02-03] MEDS: DUONEB 0.5-3 MG/3 ml Neb IH SCH ×6 (03:08→23:10)
[2018-02-03] MEDS: solu-MEDROL 125 MG IV SCH (06:05)
[2018-02-03] MEDS: Advair Hfa 230/21 Mcg COMMON CANISTER IH SCH ×2 (07:20→18:45)
[2018-02-03] MEDS: Glucophage 500 MG PO SCH ×2 (07:58→16:33)
[2018-02-03] MEDS: NovoLOG Insulin SQ PRN ×3 (07:58→16:31)
[2018-02-03] MEDS: Protonix 40MG Tablet PO SCH ×2 (08:00→15:18)
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
[2018-02-03] MEDS ORDERED: Colace 100 MG PO SCH (10:00)
[2018-02-03] MEDS: ROCEPHIN 1 Gm-D5w 50 ml Bag** 1 G/50 ML IVPB IV SCH (10:05)
[2018-02-03] MEDS: DELTASONE 20 MG PO SCH (10:06)
[2018-02-03] MEDS: ELIQUIS 2.5 MG TABLET PO SCH ×2 (10:06→21:29)
[2018-02-03] MEDS ORDERED: MILK OF MAGNESIA 30 ML PO ONE (13:26)
[2018-02-03] MEDS: Mylicon 80MG PO PRN ×2 (17:19→21:29)
[2018-02-03] MEDS: Tums EX 750 MG PO PRN ×2 (17:20→19:15)
[2018-02-03] MEDS: xanAX 0.5 MG PO PRN (21:28)
[2018-02-03] MEDS: Norco 10/325 MG Tablet PO PRN (21:28)
[2018-02-04] MEDS: DUONEB 0.5-3 MG/3 ml Neb IH SCH ×6 (03:00→23:13)
[2018-02-04] MEDS: Mylicon 80MG PO PRN ×3 (04:34→21:37)
[2018-02-04] MEDS: Advair Hfa 230/21 Mcg COMMON CANISTER IH SCH ×2 (07:15→18:37)
--- NOTE | 2018-02-04 09:01 | PCM.DS ---
Discharge Summary Date of Admission: 01/28/18 19:50 Date of Discharge: 02/04/2018 Admitting Physician: IBETH JAEGER Primary Care Provider: IBETH JAEGER Allergies Allergies No Known Drug Allergies Allergy (Verified 01/28/18 15:15) Hospital Summary - Hospital Course Hospital Course: He presented with increasing shortness of breath and wheezing. He was treated with iv steroids azithromycin and ceftriaxone with scheduled nebs and oxygen for his severe copd with exacerbation secondary to his black lung with acute on chronic hypoxemic respiratory failure. He had elevated sugars that began to improve a little after decrease of the steroids. he was still on 80 mg iv q6h on 02/02 and was changed to prednisone 40 mg daily on 02/03. He was having increased abdominal distension and shortness of breath related to this on 02/03 and this was improved after gas x and only occurred after eating lunch and dinner. It resolved and he tolerated breakfast 02/04 without difficulty and was ambulating in the halls well. He completed 5 days of azithromycin and 7 days of ceftriaxone. he is discharged on a prednisone taper. - Vitals & Intake/Output Vital Signs: Vital Signs Temperature 98.1 F 02/04/18 07:12 Pulse Rate 72 02/04/18 07:16 Respiratory Rate 18 02/04/18 07:16 Blood Pressure 151/93 02/04/18 07:12 O2 Sat by Pulse Oximetry 98 02/04/18 07:16 Oxygen-Last Documented O2 Percentage 5 Liters = 40% Intake & Output: Intake & Output 02/01/18 02/02/18 02/03/18 02/04/18 11:59 11:59 11:59 11:59 Intake Total 4496 3603 3519 1460 Output Total 2350 4505 1675 1400 Balance 2146 -902 1844 60 Weight 64.6 kg 164.4 kg 64.1 kg 64 kg - Lab Result Diagrams: 01/31/18 05:35 01/31/18 05:35 Lab Results-Last 24 Hrs: Accuchecks Date 02/03/18 Date 02/03/18 Date 02/03/18 Time 20:40 Time 16:41 Time 12:07 Accucheck Value: 182 Accucheck Value: 204 Accucheck Value: 260 Micro Results-Entire Visit: Microbiology 01/28/18 15:45 Blood Culture Gram Stain - Final Blood Not Reportable Blood Culture - Final NO GROWTH 01/28/18 16:00 Blood Culture Gram Stain - Final Blood Not Reportable Blood Culture - Final NO GROWTH Accuchecks Date 02/03/18 Date 02/03/18 Date 02/03/18 Time 20:40 Time 16:41 Time 12:07 Accucheck Value: 182 Accucheck Value: 204 Accucheck Value: 260 - Procedures and Test Procedures and Tests throughout Hospitalization: Therapy Orders & Screens 01/28/18 15:25 Respiratory Nebulizer STAT Comment: Diagnosis: Shortness of Breath 01/28/18 16:11 Peak Expiratory Flow Rate ONCE Comment: Reason For Exam: Diagnosis: Shortness of Breath 01/28/18 16:12 Respiratory Therapy Assessment DAILY Comment: Diagnosis: Shortness of Breath 01/28/18 16:58 Respiratory Therapy Assessment DAILY Comment: Diagnosis: Shortness of Breath 01/28/18 20:02 Respiratory Therapy Assessment DAILY Comment: Diagnosis: Shortness of Breath 01/28/18 20:04 Oxygen NASAL CANNULA 4 lpm Comment: Diagnosis: Shortness of Breath 01/28/18 20:55 RT Screen per Nursing Assess ONCE Comment: Protocol Order Physician Instructions: Greater than 3 points order RT Admission Screen Reason For Exam: Triggered on Admission Diagnosis: Exacerbation COPD Diagnosis: Exacerbation COPD Pneumonia: No Home O2: Yes Asthma: No CHF: No Home CPAP/BIPAP: No Home Nebs/MDI: Yes Total Points: 10 01/29/18 07:13 Peak Expiratory Flow Rate ONCE Comment: Reason For Exam: Diagnosis: Exacerbation COPD Discharge Exam General Appearance: no apparent distress Neurologic Exam: alert, oriented x 3, cooperative Skin Exam: warm, dry Ears, Nose, Throat Exam: moist mucous membranes Neck Exam: normal inspection, non-tender, supple Respiratory Exam: crackles/rales, rhonchi, wheezing Cardiovascular Exam: regular rate/rhythm, other (trace dependent edema in elbows ) Extremity Exam: normal inspection, normal range of motion, No calf tenderness, No pedal edema Final Diagnosis/Problem List - Final Discharge Diagnosis/Problem (1) Acute exacerbation of chronic obstructive airways disease Current Visit: Yes Status: Acute Onset Date: ~01/29/18 (2) 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 (3) Anemia Current Visit: Yes Status: Chronic (4) Constipation Current Visit: Yes Status: Chronic (5) Diabetes mellitus Current Visit: Yes Status: Chronic (6) Hx pulmonary embolism Current Visit: Yes Status: Chronic (7) Chronic hypoxemic respiratory failure Current Visit: Yes Status: Chronic - Discharge Discharge Date: 02/04/18 Disposition: Home, Self-Care Condition: Stable Prescriptions: New Simethicone 80 mg [Mylicon 80MG] 80 mg PO QID PRN PRN #50 tab.chew PRN Reason: Gas Continue Metformin HCl 500 mg [Glucophage 500 MG] 500 mg PO BID Apixaban [Eliquis 5 mg Tablet] 5 mg PO BID Ipratropium/Albuterol Sulfate [Iprat-Albut 0.5-3(2.5) mg/3 ml] 3 ml IH Q4H Alprazolam 0.5 mg PO HS PRN PRN #30 tablet PRN Reason: Anxiety Hydrocodone/APAP 10/325 mg [[place] 10/325 MG Tablet] 1 tab PO Q4H PRN PRN PRN Reason: Pain PANTOPRAZOLE 40 mg Tablet [Protonix 40MG Tablet] 40 mg PO BID #60 tab Fluticasone/Umeclidin/Vilanter [Trelegy Ellipta 100-62.5-25] 1 puff IH DAILY Changed Prednisone 20 mg [Deltasone 20 mg] 20 mg PO UD #30 tablet Instructions: Chronic Obstructive Pulmonary Disease (COPD), Including Emphysema Follow up with: IBETH JAEGER MD [Primary Care Provider] - Call for Appointment Forms: Discharge Instructions, Patient Portal Information
[2018-02-04] MEDS: Glucophage 500 MG PO SCH ×2 (09:05→16:24)
[2018-02-04] MEDS: Protonix 40MG Tablet PO SCH ×2 (09:05→16:24)
[2018-02-04] MEDS: ELIQUIS 2.5 MG TABLET PO SCH ×2 (09:31→21:36)
[2018-02-04] MEDS: DELTASONE 20 MG PO SCH (09:31)
[2018-02-04] MEDS: ROCEPHIN 1 Gm-D5w 50 ml Bag** 1 G/50 ML IVPB IV SCH (09:33)
[2018-02-04] MEDS: xanAX 0.5 MG PO PRN (10:55)
[2018-02-04] MEDS: NovoLOG Insulin SQ PRN ×2 (12:07→16:24)
[2018-02-04] MEDS: Norco 10/325 MG Tablet PO PRN (21:40)
[2018-02-05] MEDS: DUONEB 0.5-3 MG/3 ml Neb IH SCH ×3 (02:56→10:58)
[2018-02-05] MEDS: Norco 10/325 MG Tablet PO PRN (04:50)
[2018-02-05] MEDS: Advair Hfa 230/21 Mcg COMMON CANISTER IH SCH (06:43)
--- NOTE | 2018-02-05 08:39 | PCM.DS ---
Discharge Summary Date of Admission: 01/28/18 19:50 Date of Discharge: 02/04/18 Admitting Physician: IBETH JAEGER Primary Care Provider: IBETH JAEGER Allergies Allergies No Known Drug Allergies Allergy (Verified 01/28/18 15:15) Hospital Summary - Hospital Course Hospital Course: patient admitted with chronic hypoxemic respiratory failure and acute exacerbation of end stage copd. he has progressed and is doing better at the time of discharge. - Vitals & Intake/Output Vital Signs: Vital Signs Temperature 98.3 F 02/05/18 07:25 Pulse Rate 73 02/05/18 07:25 Respiratory Rate 18 02/05/18 07:37 Blood Pressure 169/85 02/05/18 07:25 O2 Sat by Pulse Oximetry 4 L 02/05/18 07:25 Oxygen-Last Documented O2 Percentage 4 Liters = 36% Intake & Output: Intake & Output 02/02/18 02/03/18 02/04/18 02/05/18 11:59 11:59 11:59 11:59 Intake Total 3603 3519 1460 600 Output Total 4505 1675 2600 1150 Balance -902 1844 -1140 -550 Weight 164.4 kg 64.1 kg 64 kg 63.1 kg - Lab Result Diagrams: 01/31/18 05:35 01/31/18 05:35 Lab Results-Last 24 Hrs: Accuchecks Date 02/04/18 Date 02/04/18 Date 02/04/18 Time 16:30 Time 11:30 Accucheck Value: 122 Accucheck Value: 393 Accucheck Value: 229 Micro Results-Entire Visit: Microbiology 01/28/18 15:45 Blood Culture Gram Stain - Final Blood Not Reportable Blood Culture - Final NO GROWTH 01/28/18 16:00 Blood Culture Gram Stain - Final Blood Not Reportable Blood Culture - Final NO GROWTH Accuchecks Date 02/04/18 Date 02/04/18 Date 02/04/18 Time 16:30 Time 11:30 Accucheck Value: 122 Accucheck Value: 393 Accucheck Value: 229 - Procedures and Test Procedures and Tests throughout Hospitalization: Therapy Orders & Screens 01/28/18 15:25 Respiratory Nebulizer STAT Comment: Diagnosis: Shortness of Breath 01/28/18 16:11 Peak Expiratory Flow Rate ONCE Comment: Reason For Exam: Diagnosis: Shortness of Breath 01/28/18 16:12 Respiratory Therapy Assessment DAILY Comment: Diagnosis: Shortness of Breath 01/28/18 16:58 Respiratory Therapy Assessment DAILY Comment: Diagnosis: Shortness of Breath 01/28/18 20:02 Respiratory Therapy Assessment DAILY Comment: Diagnosis: Shortness of Breath 01/28/18 20:04 Oxygen NASAL CANNULA 4 lpm Comment: Diagnosis: Shortness of Breath 01/28/18 20:55 RT Screen per Nursing Assess ONCE Comment: Protocol Order Physician Instructions: Greater than 3 points order RT Admission Screen Reason For Exam: Triggered on Admission Diagnosis: Exacerbation COPD Diagnosis: Exacerbation COPD Pneumonia: No Home O2: Yes Asthma: No CHF: No Home CPAP/BIPAP: No Home Nebs/MDI: Yes Total Points: 10 01/29/18 07:13 Peak Expiratory Flow Rate ONCE Comment: Reason For Exam: Diagnosis: Exacerbation COPD Discharge Exam General Appearance: thin Skin Exam: normal color, warm, dry Respiratory Exam: prolonged expirations, rhonchi Cardiovascular Exam: regular rate/rhythm, normal heart sounds Gastrointestinal/Abdomen Exam: soft, No tenderness, No mass Extremity Exam: normal inspection, normal range of motion Final Diagnosis/Problem List - Final Discharge Diagnosis/Problem (1) Acute exacerbation of chronic obstructive airways disease Current Visit: Yes Status: Acute Onset Date: ~01/29/18 - Discharge Disposition: Home, Self-Care Condition: Stable Prescriptions: New Simethicone 80 mg [Mylicon 80MG] 80 mg PO QID PRN PRN #50 tab.chew PRN Reason: Gas Continue Metformin HCl 500 mg [Glucophage 500 MG] 500 mg PO BID Apixaban [Eliquis 5 mg Tablet] 5 mg PO BID Ipratropium/Albuterol Sulfate [Iprat-Albut 0.5-3(2.5) mg/3 ml] 3 ml IH Q4H Alprazolam 0.5 mg PO HS PRN PRN #30 tablet PRN Reason: Anxiety Hydrocodone/APAP 10/325 mg [[place] 10/325 MG Tablet] 1 tab PO Q4H PRN PRN PRN Reason: Pain PANTOPRAZOLE 40 mg Tablet [Protonix 40MG Tablet] 40 mg PO BID #60 tab Fluticasone/Umeclidin/Vilanter [Trelegy Ellipta 100-62.5-25] 1 puff IH DAILY Changed Prednisone 20 mg [Deltasone 20 mg] 20 mg PO UD #30 tablet Instructions: Chronic Obstructive Pulmonary Disease (COPD), Including Emphysema Follow up with: IBETH JAEGER MD [Primary Care Provider] - Call for Appointment Forms: Discharge Instructions, Patient Portal Information
[2018-02-05] MEDS: Glucophage 500 MG PO SCH (09:37)
[2018-02-05] MEDS: Protonix 40MG Tablet PO SCH (09:38)
[2018-02-05] MEDS: ROCEPHIN 1 Gm-D5w 50 ml Bag** 1 G/50 ML IVPB IV SCH (09:38)
[2018-02-05] MEDS: ELIQUIS 2.5 MG TABLET PO SCH (09:38)
[2018-02-05] MEDS: DELTASONE 20 MG PO SCH (09:38)
[2018-02-05] MEDS: NovoLOG Insulin SQ PRN (09:39)
[2018-02-05] MEDS: xanAX 0.5 MG PO PRN (11:44)
[2018-02-05 11:50] VITALS: BP 175/96; PULSE 97; O2SAT 98
== END 2018-02-05 15:05 | disposition home or self-care (01) | DRG 191 ==
LOC: ED 15:05 → OBSVTOIN 19:50 → MED SURG 19:50
PROVIDERS: ADMIT Family Medicine; ATTEND Family Medicine
DX: J44.1 Chronic obstructive pulmonary disease with (acute) exacerbation (principal); J96.11 Chronic respiratory failure with hypoxia; Z86.711 Personal history of pulmonary embolism; Z79.01 Long term (current) use of anticoagulants; J60 Coalworker's pneumoconiosis; D64.9 Anemia, unspecified; K59.00 Constipation, unspecified; E11.9 Type 2 diabetes mellitus without complications; Z79.4 Long term (current) use of insulin; Z79.899 Other long term (current) drug therapy
CPT/HCPCS: 36000; 36415; 71045; 80048; 80053; 82962; 83735; 83880; 84484; 85025; 85379; 87040; 93005; 93041; 94150; 94640; 94760; 96360; 96361; 96365; 96367; 96374; 99285; J0456; J0696; J2930; A9270-GY

== ENCOUNTER 2018-02-11 17:16 | Inpatient (IN) | payer BLACK LUNG, MEDICARE, OTHER ==
[2018-02-11] MEDS ORDERED: XYLOCAINE 2% Uro-Jet TOP ONE (17:35)
[2018-02-11] MEDS ORDERED: XYLOCAINE 2% Uro-Jet ONE (17:36)
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
[2018-02-11 18:20] LABS: Appearance CLEAR (CLEAR); Bilirubin NEGATIVE (NEGATIVE); Blood NEGATIVE Ery/ul (0-5); Glucose NEGATIVE (NEGATIVE); Ketones NEGATIVE (NEGATIVE); Leukocyte Esterase NEGATIVE (NEGATIVE); Nitrite NEGATIVE (NEGATIVE); Protein,Urine Dip NEGATIVE (Negative); Specific Gravity 1.005 (1.005-1.025); Urobilinogen NORMAL mg/dL (0-1)
[2018-02-11 19:13] LABS: A-aADO2 116; ABG HEMOGLOBIN 11.5; ABG POTASSIUM 4.2 (3.5-5.1); ABG SITE RIGHT BRACHIAL; ARTERIAL BLD GAS O2 SATURATION 96.7 % (95-100); ARTERIAL BLOOD GAS BASE EXCESS 4.8 (-2.0-2.0); ARTERIAL BLOOD GAS FIO2 32 %; ARTERIAL BLOOD GAS PCO2 35 mmHg (35-45); ARTERIAL BLOOD GAS PO2 68 mmHg (75-100); ARTERIAL BLOOD GAS pH 7.51 (7.35-7.45); CARBOXYHEMOGLOBIN 2.5 % THgb (0.0-6.9); HCO3- 27.9 (22-28); HGB O2 SAT 93.3 g/dF (94-100); Methhemoglobin 0.9 % (1.4-1.5); paO2 pAO1 0.37
[2018-02-11 19:27] LABS: BASOPHIL % 0.1 % (0.0-0.4); Basophil (Absolute #) 0.02 (0-0.4); Eosinophil % 0.2 % (0.00-5.0); Eosinophil (Absolute #) 0.03 (0-0.5); Granulocyte Absolute (ANC) 13.52 (1.4-6.9); Granulocytes % 84.6 % (36.0-66.0); Hematocrit 33.5 % (42-50); Lymphocyte (Absolute #) 1.49 (1.0-4.6); Lymphocytes % 9.3 % (24.0-44.0); Mean Cell Volume 91.3 fl (78-100); Mean Corpuscular Hgb Concent. 32.8 g/dl (32-36); Mean Platelet Volume 8.2 fl (6-9.5); Monocyte (Absolute #) 0.93 (0.0-1.3); Monocytes % 5.8 % (0.0-12.0); Platelet Count 207 K/mm3 (150-450); Red Blood Count 3.67 M/mm3 (4.1-5.6); Red Cell Distribution Width 13.6 % (11.5-14.0)
[2018-02-11 19:44] LABS: Mean Corpuscular Hemoglobin 29.9 pg (26-32)
[2018-02-11 19:50] LABS: AMYLASE 51 U/L (30-110); LIPASE 19 U/L (23-300)
[2018-02-11 19:58] LABS: ALBUMIN 3.4 g/dL (3.5-5.0); ALKALINE PHOSPHATASE 69 U/L (38-126); ANION GAP 10.9 MEQ/L (5-15); BLOOD UREA NITROGEN 25 mg/dL (9-20); CHLORIDE 98 mmol/L (98-107); Calcium 8.7 mg/dL (8.4-10.2); Carbon Dioxide 28 mmol/L (22-30); Creatinine 1 0.74 mg/dL (0.66-1.25); Glucose 148 mg/dL (74-106); NT PRO BNP 169 pg/mL (0-900); Potassium 4.3 mmol/L (3.5-5.1); SGOT/AST 12 U/L (17-59); SGPT/ALT 14 U/L (0-50); SODIUM 133 mmol/L (137-145); Total Protein 5.7 g/dL (6.3-8.2)
--- NOTE | 2018-02-11 21:34 | XRAY ---
Indication: Abdominal pain, constipation, and short of breath. Multiple contiguous axial images obtained through the abdomen and pelvis without contrast as ordered. Comparison: November 02, 2017. Lung bases again demonstrates worsening moderate bibasilar subsegmental atelectasis with stable scattered fibrosis/scarring, tiny bibasilar effusions, and calcified granulomas. Heart is not enlarged. Noncontrasted stomach and bowel loops appear nonobstructed. Again mild diffuse scattered colonic fecal debris throughout. No free fluid/air. Stable calcified splenic granulomas, chronic pancreatitis calcifications, left renal cyst, and enlarged prostate gland. New Garces catheter empties the bladder. Remaining liver, gallbladder, adrenal glands, kidneys, and ureters appear unremarkable for noncontrasted exam. There remains heavy aortoiliac calcifications without AAA. Osseous structures demonstrate stable osteopenia, multilevel degenerative spondylosis, minimal multilevel thoracolumbar concave deformities, bilateral L5 spondylolysis with grade 1 spondylolisthesis, and old right lower rib fractures. Impression: 1. Again mild fecal stasis without obstruction. 2. Worsening bibasilar subsegmental atelectasis with stable tiny bibasilar effusions. Superimposed pneumonic process is not completely excluded. 3. Stable chronic pancreatitis calcifications, left renal cyst, and enlarged prostate gland. Comment: Preliminary interpretation was made by [facility]. No discrepancy. CTDI 8.99
--- NOTE | 2018-02-11 21:36 | XRAY ---
Indication: Short of breath and cough. Comparison: January 28, 2018. Portable chest unchanged again demonstrating COPD, right lung postsurgical changes, bilateral scattered fibrosis/scarring, and bibasilar pleural effusion/thickening. Heart is not enlarged. No new/acute findings.
[2018-02-11] MEDS ORDERED: DILAUDID 2 MG INJECTION IV PRN (22:15)
[2018-02-11] MEDS ORDERED: Zofran 4 MG/2 ML VIAL IV PRN (22:15)
[2018-02-11] MEDS ORDERED: TYLENOL 325 MG PO PRN (22:15)
[2018-02-11] MEDS: Sodium Chloride 0.9% 1000 ML 1,000 ML IV SCH (22:32)
[2018-02-11] MEDS: solu-MEDROL 125 MG IV SCH (22:34)
[2018-02-11] MEDS: Pepcid 20 MG VIAL IV SCH (22:34)
[2018-02-11] MEDS: DUONEB 0.5-3 MG/3 ml Neb IH SCH (23:22)
[2018-02-12] MEDS: Zosyn 3.375GM/100 Ml D5W 3.375 GM/100 ML IVPB IV SCH ×5 (00:21→23:31)
[2018-02-12] MEDS: DUONEB 0.5-3 MG/3 ml Neb IH SCH ×6 (03:11→23:20)
[2018-02-12 03:36] LABS: A-aADO2 115; ABG HEMOGLOBIN 10.7; ABG POTASSIUM 4.2 (3.5-5.1); ABG SITE RIGHT BRACHIAL; ARTERIAL BLD GAS O2 SATURATION 99.4 % (95-100); ARTERIAL BLOOD GAS BASE EXCESS 4.1 (-2.0-2.0); ARTERIAL BLOOD GAS FIO2 40 %; ARTERIAL BLOOD GAS PCO2 41 mmHg (35-45); ARTERIAL BLOOD GAS PO2 119 mmHg (75-100); ARTERIAL BLOOD GAS pH 7.45 (7.35-7.45); CARBOXYHEMOGLOBIN 2.7 % THgb (0.0-6.9); HCO3- 28.5 (22-28); Methhemoglobin 0.7 % (1.4-1.5); paO2 pAO1 0.51
[2018-02-12] MEDS: solu-MEDROL 125 MG IV SCH ×4 (06:06→23:28)
[2018-02-12 06:15] LABS: ALBUMIN 3.4 g/dL (3.5-5.0); ALKALINE PHOSPHATASE 65 U/L (38-126); ANION GAP 11.4 MEQ/L (5-15); BLOOD UREA NITROGEN 22 mg/dL (9-20); CHLORIDE 99 mmol/L (98-107); Calcium 8.6 mg/dL (8.4-10.2); Carbon Dioxide 28 mmol/L (22-30); Creatinine 1 0.74 mg/dL (0.66-1.25); Glucose 268 mg/dL (74-106); Potassium 4.5 mmol/L (3.5-5.1); SGOT/AST 8 U/L (17-59); SGPT/ALT 15 U/L (0-50); SODIUM 134 mmol/L (137-145); Total Protein 6.1 g/dL (6.3-8.2)
[2018-02-12 06:17] LABS: Hematocrit 34.1 % (42-50); Hemoglobin 11.1 gm/dl (12.5-18.0); Mean Cell Volume 92.9 fl (78-100); Mean Corpuscular Hemoglobin 30.2 pg (26-32); Mean Corpuscular Hgb Concent. 32.6 g/dl (32-36); Mean Platelet Volume 8.4 fl (6-9.5); Platelet Count 179 K/mm3 (150-450); Red Blood Count 3.67 M/mm3 (4.1-5.6); Red Cell Distribution Width 13.6 % (11.5-14.0); White Blood Count 11.5 K/mm3 (4.0-10.5)
[2018-02-12] MEDS: NovoLIN R SQ PRN ×4 (08:06→23:23)
[2018-02-12] MEDS: Advair Hfa 230/21 Mcg COMMON CANISTER IH SCH ×2 (09:00→19:13)
[2018-02-12] MEDS ORDERED: Zithromax 500 MG/ 250 ML NaCl Premix 500 MG/250 ML IVPB IV SCH (10:00)
[2018-02-12] MEDS: Pepcid 20 MG VIAL IV SCH ×2 (10:01→20:43)
[2018-02-12] MEDS: Sodium Chloride 0.9% 1000 ML 1,000 ML IV SCH ×2 (10:01→20:40)
[2018-02-12] MEDS: Protonix 40MG Tablet PO SCH ×2 (11:58→20:42)
[2018-02-12] MEDS: ELIQUIS 2.5 MG TABLET PO SCH ×2 (13:08→20:43)
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
[2018-02-12] MEDS: xanAX 0.5 MG PO PRN (20:43)
[2018-02-12] MEDS: Zithromax 500 MG/ 250 ML NaCl Premix 500 MG/250 ML IVPB IV SCH (20:55)
[2018-02-12] MEDS: Norco 10/325 MG Tablet PO PRN (20:58)
[2018-02-12] MEDS ORDERED: NON-FORMULARY ITEM (Apixaban*** [Eliquis 5 Mg Tablet***] 5 MG) PO SCH ×2 (22:00)
[2018-02-13] MEDS: DUONEB 0.5-3 MG/3 ml Neb IH SCH ×6 (03:02→23:17)
[2018-02-13] MEDS: Zosyn 3.375GM/100 Ml D5W 3.375 GM/100 ML IVPB IV SCH ×3 (05:42→17:39)
[2018-02-13] MEDS: solu-MEDROL 125 MG IV SCH (05:44)
[2018-02-13] MEDS: Advair Hfa 230/21 Mcg COMMON CANISTER IH SCH ×2 (07:19→19:17)
[2018-02-13] MEDS: Sodium Chloride 0.9% 1000 ML 1,000 ML IV SCH ×2 (08:15→19:20)
[2018-02-13] MEDS: NovoLIN R SQ PRN ×4 (08:16→22:29)
--- NOTE | 2018-02-13 09:06 | PCM.NOTE ---
Date and Time: 02/13/18900 Subjective Assessment: Pt stlil c/o stomach discomfort. Had a BM yesterday. Lucero po very well. C/o R hip pain/groin pain; feels like it "pops out" at times. Also c/o R knee pain when he's walking. - Review of Systems Constitutional: No Fever Respiratory: Cough Objective Exam General Appearance: no apparent distress, alert Neurologic Exam: oriented x 3, cooperative Skin Exam: normal color, warm, dry, No rash Respiratory Exam: diminished breath sounds, prolonged expirations, rhonchi ( scattered throughout but somewhat less than yesterday), wheezing (scattered) Cardiovascular Exam: regular rate/rhythm, normal heart sounds, No murmur Gastrointestinal/Abdomen Exam: soft, normal bowel sounds, distention, No tenderness Back Exam: normal inspection, No rash OBJECTIVE DATA Vital Signs: Vital Signs - 24 hr Temp Pulse Resp BP Pulse Ox 02/13/18 07:27 98 F 86 22 129/84 97 02/13/18 07:22 74 20 97 02/13/18 04:00 97.7 F 74 20 126/68 98 02/13/18 03:02 74 20 98 02/13/18 00:00 97.9 F 78 20 128/72 98 02/12/18 23:20 78 20 98 02/12/18 20:00 19 02/12/18 19:55 98.2 F 80 19 104/68 96 02/12/18 19:11 80 19 96 02/12/18 16:00 22 02/12/18 15:45 98 F 75 22 129/75 97 02/12/18 15:37 78 20 96 02/12/18 12:10 98.1 F 72 22 126/61 95 02/12/18 12:00 22 02/12/18 11:37 70 18 96 Oxygen-Last 24 hours O2 Percentage 5 Liters = 40% O2 Percentage 5 Liters = 40% O2 Percentage 5 Liters = 40% O2 Percentage 5 Liters = 40% O2 Percentage 5 Liters = 40% O2 Percentage 5 Liters = 40% Pain Assessment - Last Documented Pain Intensity 1 Pain Scale Used [facility] Intake and Output: Intake & Output 02/10/18 02/11/18 02/12/18 02/13/18 11:59 11:59 11:59 11:59 Intake Total 1521 3614 Output Total 2300 1400 Balance -779 2214 Weight 57.9 kg 60.7 kg Lab Results: Accuchecks Date 02/12/18 Date 02/12/18 Date 02/12/18 Time 16:30 Time 11:30 Accucheck Value: 465 Accucheck Value: 307 Accucheck Value: 192 Lab Results-Last 24 Hours 02/12/18 Range/Units 05:00 Hemoglobin A1c 6.70 H (4.5-6.0) % Radiology Exams: Radiology Procedures Category Date Time Status ABDOMEN AND PELVIS W/0 CONTRAS [CT] Stat Exams 02/11/18 19:05 Completed CHEST 1 VIEW (PORTABLE) Stat Exams 02/11/18 17:37 Completed Assessment/Plan (1) Acute exacerbation of chronic obstructive airways disease Current Visit: Yes Status: Acute Onset Date: ~01/29/18 Assessment & Plan: On zosyn and zithromax. Improving every day. Code(s): J44.1 - CHRONIC OBSTRUCTIVE PULMONARY DISEASE W (ACUTE) EXACERBATION (2) Urinary retention Current Visit: Yes Status: Acute Assessment & Plan: Has almanza catheter. Enlarged prostate on CT scan. In ER the RN thought he had several hundred mL in his bladder when the almanza was placed. Code(s): R33.9 - RETENTION OF URINE, UNSPECIFIED (3) Abdominal distension Current Visit: No Status: Chronic Assessment & Plan: could be gas related to constipation. will try to add stool softener Code(s): R14.0 - ABDOMINAL DISTENSION (GASEOUS) (4) Chronic hypoxemic respiratory failure Current Visit: No Status: Chronic (5) Diabetes mellitus Current Visit: No Status: Chronic Qualifiers: Diabetes mellitus type: type 2 Diabetes mellitus senior care insulin use: without senior care use Diabetes mellitus complication status: with unspecified complications Qualified Code(s): E11.8 - Type 2 diabetes mellitus with unspecified complications Assessment & Plan: BS elevated but will hold off on increasing insulin as I am decreasing steroid dose and frequency today. Code(s): E11.9 - TYPE 2 DIABETES MELLITUS WITHOUT COMPLICATIONS (6) End stage COPD Current Visit: No Status: Chronic Code(s): J44.9 - CHRONIC OBSTRUCTIVE PULMONARY DISEASE, UNSPECIFIED (7) DNR (do not resuscitate) Current Visit: Yes Status: Acute Assessment & Plan: We discussed yesterday at length; pt is now DNR.
[2018-02-13] MEDS: Pepcid 20 MG VIAL IV SCH ×2 (09:48→22:28)
[2018-02-13] MEDS: Protonix 40MG Tablet PO SCH ×2 (09:48→22:28)
[2018-02-13] MEDS: Norco 10/325 MG Tablet PO PRN ×3 (09:48→22:28)
[2018-02-13] MEDS: Colace 100 MG PO SCH ×2 (09:49→22:28)
[2018-02-13] MEDS: ELIQUIS 2.5 MG TABLET PO SCH ×2 (09:49→22:28)
--- NOTE | 2018-02-13 09:54 | XRAY ---
Indication: Pain. No known injury. Comparison: February 11, 2016. 2 views of the right hip demonstrates progressive worsening moderate degenerative arthropathy with new Garces catheter in situ. Stable osteopenia. No other bony, articular, or soft tissue abnormalities.
--- NOTE | 2018-02-13 10:00 | XRAY ---
Indication: Right knee pain. No known injury. Comparison: None 2 portable views of the right knee demonstrates osteopenia, suprapatellar soft tissue swelling/effusion, and well-circumscribed proximal tibial periosteal thickening with lateral tibial plateau depression presumed from old injury. No other bony, articular, or soft tissue abnormalities.
[2018-02-13] MEDS: solu-MEDROL 40 MG IV SCH ×2 (14:53→22:28)
[2018-02-13] MEDS: Zithromax 500 MG/ 250 ML NaCl Premix 500 MG/250 ML IVPB IV SCH (22:27)
[2018-02-13] MEDS: xanAX 0.5 MG PO PRN (22:29)
[2018-02-14] MEDS: Zosyn 3.375GM/100 Ml D5W 3.375 GM/100 ML IVPB IV SCH ×4 (00:20→18:15)
[2018-02-14] MEDS: DUONEB 0.5-3 MG/3 ml Neb IH SCH ×6 (03:20→23:40)
[2018-02-14] MEDS: solu-MEDROL 40 MG IV SCH ×4 (05:43→23:53)
[2018-02-14 05:59] LABS: Granulocyte Absolute (ANC) 17.08 (1.4-6.9); Hemoglobin 9.2 gm/dl (12.5-18.0); Mean Cell Volume 93.9 fl (78-100); Mean Corpuscular Hgb Concent. 31.7 g/dl (32-36); Mean Platelet Volume 8.4 fl (6-9.5); Platelet Count 183 K/mm3 (150-450); Red Blood Count 3.09 M/mm3 (4.1-5.6); Red Cell Distribution Width 13.6 % (11.5-14.0); White Blood Count 17.7 K/mm3 (4.0-10.5)
[2018-02-14 06:01] LABS: Mean Corpuscular Hemoglobin 29.7 pg (26-32)
[2018-02-14 06:13] LABS: ALBUMIN 3.1 g/dL (3.5-5.0); ALKALINE PHOSPHATASE 60 U/L (38-126); ANION GAP 10.4 MEQ/L (5-15); BLOOD UREA NITROGEN 15 mg/dL (9-20); CHLORIDE 107 mmol/L (98-107); Calcium 8.2 mg/dL (8.4-10.2); Carbon Dioxide 26 mmol/L (22-30); Creatinine 1 0.75 mg/dL (0.66-1.25); Glucose 175 mg/dL (74-106); SGOT/AST 8 U/L (17-59); SGPT/ALT 14 U/L (0-50); SODIUM 140 mmol/L (137-145); Total Protein 5.5 g/dL (6.3-8.2)
[2018-02-14 06:37] LABS: Lymphocytes 1 % (24-44); Monocyte 1 % (0.0-12.0); Neutrophils 98 % (36.-66.); Total Cells Counted 100
[2018-02-14 06:38] LABS: Platelet Estimate NORMAL (NORMAL)
[2018-02-14] MEDS: Advair Hfa 230/21 Mcg COMMON CANISTER IH SCH ×2 (06:54→18:50)
[2018-02-14] MEDS: Colace 100 MG PO SCH ×2 (08:39→22:24)
[2018-02-14] MEDS: Pepcid 20 MG VIAL IV SCH ×3 (08:39→23:54)
[2018-02-14] MEDS: ELIQUIS 2.5 MG TABLET PO SCH ×2 (08:39→22:24)
[2018-02-14] MEDS: Sodium Chloride 0.9% 1000 ML 1,000 ML IV SCH (08:39)
[2018-02-14] MEDS: NovoLIN R SQ PRN ×4 (08:40→22:24)
[2018-02-14] MEDS: Protonix 40MG Tablet PO SCH ×2 (08:40→22:24)
--- NOTE | 2018-02-14 09:44 | PCM.NOTE ---
Date and Time: 02/14/18938 Subjective Assessment: patient continues to complain of cough, dyspnea, abdominal bloating. feels terrible Objective Exam General Appearance: mild distress Neurologic Exam: alert Skin Exam: normal color, warm, dry Respiratory Exam: crackles/rales, rhonchi Cardiovascular Exam: regular rate/rhythm, normal heart sounds Gastrointestinal/Abdomen Exam: normal bowel sounds, distention, No mass, No guarding, No rebound Extremity Exam: normal inspection, normal range of motion OBJECTIVE DATA Vital Signs: Vital Signs - 24 hr Temp Pulse Resp BP Pulse Ox 02/14/18 08:00 22 02/14/18 07:21 98 F 87 22 170/87 98 02/14/18 07:00 84 20 98 02/14/18 04:05 98.3 F 81 20 126/71 98 02/14/18 03:28 82 18 99 02/14/18 00:07 98.6 F 96 H 18 121/68 97 02/13/18 23:20 96 H 18 97 02/13/18 22:03 84 20 97 02/13/18 20:13 98.3 F 84 20 131/71 98 02/13/18 16:00 97.4 F 20 96 02/13/18 15:16 68 22 98 02/13/18 12:30 97.8 F 82 20 122/78 98 02/13/18 11:17 80 18 97 Oxygen-Last 24 hours O2 Percentage 5 Liters = 40% O2 Percentage 5 Liters = 40% O2 Percentage 5 Liters = 40% O2 Percentage 5 Liters = 40% O2 Percentage 5 Liters = 40% Pain Assessment - Last Documented Pain Intensity 4 Pain Scale Used [facility] Intake and Output: Intake & Output 02/11/18 02/12/18 02/13/18 02/14/18 11:59 11:59 11:59 11:59 Intake Total 1521 3614 3792 Output Total 2300 1400 1850 Balance -455 6104 1942 Weight 57.9 kg 60.7 kg 60 kg Lab Results: Accuchecks Date 02/14/18 Time 07:30 Accucheck Value: 175 Accucheck Value: 278 Accucheck Value: 346 Accucheck Value: 372 Lab Results-Last 24 Hours 02/14/18 02/14/18 Range/Units 05:26 05:26 WBC 17.7 H (4.0-10.5) K/mm3 RBC 3.09 L (4.1-5.6) M/mm3 Hgb 9.2 L (12.5-18.0) gm/dl Hct 29.0 L (42-50) % MCV 93.9 (78-100) fl MCH 29.7 (26-32) pg MCHC 31.7 L (32-36) g/dl RDW 13.6 (11.5-14.0) % Plt Count 183 (150-450) K/mm3 MPV 8.4 (6-9.5) fl Absolute Granulocytes 17.08 H (1.4-6.9) Segmented Neutrophils 98 H (36.-66.) % Lymphocytes (Manual) 1 L (24-44) % Monocytes (Manual) 1 (0.0-12.0) % Platelet Estimate NORMAL (NORMAL) RBC Morphology NORMAL Sodium 140 (137-145) mmol/L Potassium 4.0 (3.5-5.1) mmol/L Chloride 107 (98-107) mmol/L Carbon Dioxide 26 (22-30) mmol/L Anion Gap 10.4 (5-15) MEQ/L BUN 15 (9-20) mg/dL Creatinine 0.75 (0.66-1.25) mg/dL Estimated GFR > 60.0 ML/MIN Glucose 175 H (74-106) mg/dL Calcium 8.2 L (8.4-10.2) mg/dL Total Bilirubin 0.20 (0.2-1.3) mg/dL AST 8 L (17-59) U/L ALT 14 (0-50) U/L Alkaline Phosphatase 60 (38-126) U/L Serum Total Protein 5.5 L (6.3-8.2) g/dL Albumin 3.1 L (3.5-5.0) g/dL Radiology Exams: Radiology Procedures Category Date Time Status HIP UNI (2V) INCL PEL IF DONE Routine Exams 02/13/18 09:36 Completed KNEE (1 OR 2 VIEW) Routine Exams 02/13/18 09:35 Completed Multi-Disciplinary Progress Notes: Multi-Disciplinary Progress Notes 02/13/18 17:48 Physical Therapy Note by Ruth Millard PLACED WHEELCHAIR WITH O2 TANK REED IN PATIENT'S ROOM HE SAYS HE WILL AMBULATE PUSHING THE WHEELCHAIR WHEN HE IS READY. END STAGE LUNG DISEASE LIMITS REGULAR PARTICIPATION IN THERAPY EXERTION TOLERANCE FLUCTUATES, AND THE PATIENT MOVES HIMSELF WHEN HE FEELS EXACERBATION DIMINISHING. WILL MONITOR. Initialized on 02/13/18 17:48 - END OF NOTE Assessment/Plan (1) Acute exacerbation of chronic obstructive airways disease Current Visit: Yes Status: Acute Onset Date: ~01/29/18 Assessment & Plan: continue abx, nebs and steroids. will lock fluids at this time Code(s): J44.1 - CHRONIC OBSTRUCTIVE PULMONARY DISEASE W (ACUTE) EXACERBATION (2) Urinary retention due to benign prostatic hyperplasia Current Visit: Yes Status: Acute Assessment & Plan: add flomax, keep almanza in place. will likely need to see urology as outpatient, patient unlikely a candidate for any intervention Code(s): N40.1 - BENIGN PROSTATIC HYPERPLASIA WITH LOWER URINARY TRACT SYMP; R33.8 - OTHER RETENTION OF URINE (3) Pneumonia Current Visit: No Status: Acute Qualifiers: Pneumonia type: due to unspecified organism Laterality: right Lung location: middle lobe of lung Qualified Code(s): J18.1 - Lobar pneumonia, unspecified organism Code(s): J18.9 - PNEUMONIA, UNSPECIFIED ORGANISM (4) Chronic hypoxemic respiratory failure Current Visit: No Status: Chronic (5) End stage COPD Current Visit: No Status: Chronic Assessment & Plan: prognosis is very poor, would not be unexpected soon in this pleasant gentleman unfortunately. Code(s): J44.9 - CHRONIC OBSTRUCTIVE PULMONARY DISEASE, UNSPECIFIED (6) Abdominal pain Current Visit: No Status: Resolved Assessment & Plan: in my opinion with nothing acute/mild fecal stasis on multiple ct scans appears to be related to air hunger from his end stage copd, which unfortunately there isn't much we can do about this problem, patient understands. Code(s): R10.9 - UNSPECIFIED ABDOMINAL PAIN
[2018-02-14] MEDS: Flomax 0.4 MG PO SCH (10:06)
[2018-02-14] MEDS: Mylicon 80MG PO PRN ×2 (18:15→22:44)
[2018-02-14] MEDS: xanAX 0.5 MG PO PRN (22:40)
[2018-02-14] MEDS: Norco 10/325 MG Tablet PO PRN (22:41)
[2018-02-14] MEDS: Zithromax 500 MG/ 250 ML NaCl Premix 500 MG/250 ML IVPB IV SCH ×2 (23:41→23:53)
[2018-02-15] MEDS: Zosyn 3.375GM/100 Ml D5W 3.375 GM/100 ML IVPB IV SCH ×5 (01:07→23:25)
[2018-02-15] MEDS: DUONEB 0.5-3 MG/3 ml Neb IH SCH ×6 (03:52→22:55)
[2018-02-15 05:45] LABS: BASOPHIL % 0.2 % (0.0-0.4); Basophil (Absolute #) 0.02 (0-0.4); Eosinophil (Absolute #) 0 (0-0.5); Granulocyte Absolute (ANC) 11.43 (1.4-6.9); Granulocytes % 88.3 % (36.0-66.0); Hematocrit 26.6 % (42-50); Hemoglobin 8.5 gm/dl (12.5-18.0); Lymphocyte (Absolute #) 0.97 (1.0-4.6); Lymphocytes % 7.5 % (24.0-44.0); Mean Cell Volume 94.3 fl (78-100); Mean Corpuscular Hemoglobin 30.1 pg (26-32); Mean Platelet Volume 8.3 fl (6-9.5); Monocyte (Absolute #) 0.52 (0.0-1.3); Platelet Count 184 K/mm3 (150-450); Red Blood Count 2.82 M/mm3 (4.1-5.6); Red Cell Distribution Width 13.5 % (11.5-14.0); White Blood Count 12.9 K/mm3 (4.0-10.5)
[2018-02-15 06:00] LABS: ALBUMIN 2.7 g/dL (3.5-5.0); ALKALINE PHOSPHATASE 60 U/L (38-126); ANION GAP 8.8 MEQ/L (5-15); BLOOD UREA NITROGEN 14 mg/dL (9-20); CHLORIDE 105 mmol/L (98-107); Calcium 8.2 mg/dL (8.4-10.2); Carbon Dioxide 29 mmol/L (22-30); Glucose 212 mg/dL (74-106); Potassium 4.4 mmol/L (3.5-5.1); SGOT/AST 14 U/L (17-59); SGPT/ALT 17 U/L (0-50); SODIUM 138 mmol/L (137-145)
[2018-02-15] MEDS: solu-MEDROL 40 MG IV SCH ×3 (07:02→22:03)
[2018-02-15] MEDS: Advair Hfa 230/21 Mcg COMMON CANISTER IH SCH ×2 (07:10→18:50)
[2018-02-15] MEDS: ELIQUIS 2.5 MG TABLET PO SCH ×2 (08:37→22:03)
[2018-02-15] MEDS: Flomax 0.4 MG PO SCH (08:37)
[2018-02-15] MEDS: Protonix 40MG Tablet PO SCH ×2 (08:37→22:03)
[2018-02-15] MEDS: Colace 100 MG PO SCH ×2 (08:37→22:03)
[2018-02-15] MEDS: Pepcid 20 MG VIAL IV SCH ×2 (08:38→22:03)
[2018-02-15] MEDS: NovoLIN R SQ PRN ×3 (08:38→23:36)
--- NOTE | 2018-02-15 09:24 | PCM.NOTE ---
Date and Time: 02/15/18917 Subjective Assessment: patient continues to have problems with breathing, he is frustrated waiting on PICC line and being NPO Objective Exam General Appearance: no apparent distress, alert Skin Exam: normal color, warm, dry Respiratory Exam: crackles/rales, wheezing Cardiovascular Exam: regular rate/rhythm, normal heart sounds Gastrointestinal/Abdomen Exam: soft, No tenderness, No mass Extremity Exam: normal inspection, normal range of motion OBJECTIVE DATA Vital Signs: Vital Signs - 24 hr Temp Pulse Resp BP Pulse Ox 02/15/18 07:47 98.4 F 76 20 131/94 100 02/15/18 04:15 98.5 F 75 20 137/74 98 02/15/18 03:53 75 20 98 02/15/18 00:00 98.5 F 85 20 144/75 97 02/14/18 23:40 85 20 97 02/14/18 20:05 98.9 F 92 H 22 137/75 97 02/14/18 18:51 84 20 97 02/14/18 16:28 98.1 F 86 20 180/87 96 02/14/18 16:00 24 02/14/18 15:08 88 24 02/14/18 12:00 20 02/14/18 11:09 97.6 F 82 20 159/78 96 02/14/18 10:42 76 24 Oxygen-Last 24 hours O2 Percentage 5 Liters = 40% O2 Percentage 5 Liters = 40% O2 Percentage 5 Liters = 40% O2 Percentage 5 Liters = 40% O2 Percentage 5 Liters = 40% O2 Percentage 5 Liters = 40% Pain Assessment - Last Documented Pain Intensity 4 Pain Scale Used 0-10 Pain Scale Intake and Output: Intake & Output 02/12/18 02/13/18 02/14/18 02/15/18 11:59 11:59 11:59 11:59 Intake Total 1521 3614 3792 840 Output Total 2300 1400 1850 1700 Balance -779 0134 1392 -860 Weight 57.9 kg 60.7 kg 60 kg 63.4 kg Lab Results: Accuchecks Date 02/14/18 Date 02/14/18 Time 16:30 Time 11:30 Accucheck Value: 186 Accucheck Value: 227 Accucheck Value: 391 Lab Results-Last 24 Hours 02/15/18 02/15/18 Range/Units 05:04 05:04 WBC 12.9 H (4.0-10.5) K/mm3 RBC 2.82 L (4.1-5.6) M/mm3 Hgb 8.5 L (12.5-18.0) gm/dl Hct 26.6 L (42-50) % MCV 94.3 (78-100) fl MCH 30.1 (26-32) pg MCHC 32.0 (32-36) g/dl RDW 13.5 (11.5-14.0) % Plt Count 184 (150-450) K/mm3 MPV 8.3 (6-9.5) fl Gran % 88.3 H (36.0-66.0) % Eos # (Auto) 0 (0-0.5) Absolute Lymphs (auto) 0.97 L (1.0-4.6) Absolute Monos (auto) 0.52 (0.0-1.3) Lymphocytes % 7.5 L (24.0-44.0) % Monocytes % 4.0 (0.0-12.0) % Eosinophils % 0.0 (0.00-5.0) % Basophils % 0.2 (0.0-0.4) % Absolute Granulocytes 11.43 H (1.4-6.9) Basophils # 0.02 (0-0.4) Sodium 138 (137-145) mmol/L Potassium 4.4 (3.5-5.1) mmol/L Chloride 105 (98-107) mmol/L Carbon Dioxide 29 (22-30) mmol/L Anion Gap 8.8 (5-15) MEQ/L BUN 14 (9-20) mg/dL Creatinine 0.60 L (0.66-1.25) mg/dL Estimated GFR > 60.0 ML/MIN Glucose 212 H (74-106) mg/dL Calcium 8.2 L (8.4-10.2) mg/dL Total Bilirubin 0.20 (0.2-1.3) mg/dL AST 14 L (17-59) U/L ALT 17 (0-50) U/L Alkaline Phosphatase 60 (38-126) U/L Serum Total Protein 5.0 L (6.3-8.2) g/dL Albumin 2.7 L (3.5-5.0) g/dL Radiology Exams: Radiology Procedures Category Date Time Status GUIDANCE FOR NEEDLE PLACEMENT [US] Routine Exams 02/15/18 08:54 Ordered HIP UNI (2V) INCL PEL IF DONE Routine Exams 02/13/18 09:36 Completed KNEE (1 OR 2 VIEW) Routine Exams 02/13/18 09:35 Completed PICC LINE PLACEMENT Routine Exams 02/15/18 08:00 Ordered Multi-Disciplinary Progress Notes: Multi-Disciplinary Progress Notes 02/14/18 10:00 (created 02/14/18 15:57) Case Management Note by Justa Moore VISITED WITH PT AND HAD LONG DISCUSSION REGARDING DISCHARGE NEEDS. DISCUSSION THAT PT IS NOT GETTING THE PROPER CARE OR ASSISTANCE AT HOME. DISCUSSED REHAB STAY, HHC, HOSPICE. PT UPSET WITH MENTION OF HOSPICE, REPORTS THAT THEY WILL NEVER BE BACK TO HIS HOME. DISCUSSED THAT HHC SERVICES MAY NOT BE ENOUGH SUPPORT WHEN HE IS READY FOR DISCHARGE. ENCOURAGED PT TO GO FOR SHORT TERM REHAB STAY. DISCUSSED THAT HE HAS BEEN IN THE PAST, DID VERY WELL, AND BENEFITTED GREATLY. PT AGREES WITH THIS. HAS SOFTENED ON STANCE TO RETURN HOME. REPORTS THAT HE WILL THINK ABOUT REHAB ON DISCHARGE. IF HE DOES CHOOSE TO GO, HE WANTS TO GO TO [place], HE HAS BEEN THERE BEFORE, AND WANTS DR. JAEGER TO FOLLOW HIM. DENIES [facility] NEEDS. Initialized on 02/14/18 15:57 - END OF NOTE Assessment/Plan (1) Acute exacerbation of chronic obstructive airways disease Current Visit: Yes Status: Acute Onset Date: ~01/29/18 Assessment & Plan: continue IV steroids, abx and nebs. patient would be a good candidate for rehab stay. he is considering. Code(s): J44.1 - CHRONIC OBSTRUCTIVE PULMONARY DISEASE W (ACUTE) EXACERBATION (2) Urinary retention due to benign prostatic hyperplasia Current Visit: Yes Status: Acute Code(s): N40.1 - BENIGN PROSTATIC HYPERPLASIA WITH LOWER URINARY TRACT SYMP; R33.8 - OTHER RETENTION OF URINE (3) Pneumonia Current Visit: No Status: Acute Qualifiers: Pneumonia type: due to unspecified organism Laterality: right Lung location: middle lobe of lung Qualified Code(s): J18.1 - Lobar pneumonia, unspecified organism Code(s): J18.9 - PNEUMONIA, UNSPECIFIED ORGANISM (4) Chronic hypoxemic respiratory failure Current Visit: No Status: Chronic (5) End stage COPD Current Visit: No Status: Chronic Code(s): J44.9 - CHRONIC OBSTRUCTIVE PULMONARY DISEASE, UNSPECIFIED (6) Abdominal pain Current Visit: No Status: Resolved Code(s): R10.9 - UNSPECIFIED ABDOMINAL PAIN
[2018-02-15] MEDS: xanAX 0.5 MG PO PRN ×2 (11:10→22:04)
[2018-02-15] MEDS: Norco 10/325 MG Tablet PO PRN ×2 (11:10→22:04)
--- NOTE | 2018-02-15 12:13 | XRAY ---
Indication: Ultrasound guidance for PICC line placement. Initial sonographic imaging of the right upper extremity was performed for localization of patent veins. A patent basilic vein identified above the elbow. Ultrasound guidance was then used for PICC line insertion. Full PICC line insertion is reported separately.
--- NOTE | 2018-02-15 12:13 | XRAY ---
Indication: Long-term IV access and therapy for pneumonia. Difficult venous access. Informed consent obtained. Patient was placed on the fluoroscopic table in a supine position. Initial sonographic imaging of the right upper extremity was performed for localization of patent veins. The right upper extremity was then prepped and draped in sterile fashion. Tourniquet applied. 1% lidocaine plain used for local anesthesia. Using ultrasound guidance and a micropuncture needle, a basilic vein above the elbow was successfully percutaneously cannulized. A floppy tip 0.018 guidewire inserted. Tourniquet released. Needle was exchanged for a 5 Japanese dilator peel-away sheath catheter. Ultimately a 5 Japanese double-lumen PICC line was inserted over a longer 0.018 guidewire with the tip positioned in the distal SVC using fluoroscopic guidance. Guidewire removed. Both ports flushed with heparinized saline. Catheter was secured. Postoperative instructions and orders given. Patient discharged in good condition. Impression: Technically successful right upper extremity PICC line placement using ultrasound and fluoroscopic guidance. No immediate complications. Approximately 3 cc blood loss. Approximately 0.5 minute of fluoroscopy used. Catheter length is 44 cm.
[2018-02-15] MEDS: Zithromax 500 MG/ 250 ML NaCl Premix 500 MG/250 ML IVPB IV SCH (22:03)
[2018-02-16] MEDS: DUONEB 0.5-3 MG/3 ml Neb IH SCH ×6 (03:36→23:11)
[2018-02-16] MEDS: Zosyn 3.375GM/100 Ml D5W 3.375 GM/100 ML IVPB IV SCH ×3 (05:41→17:26)
[2018-02-16] MEDS: solu-MEDROL 40 MG IV SCH ×3 (05:42→22:06)
[2018-02-16 07:09] LABS: Basophil (Absolute #) 0 (0-0.4); Eosinophil (Absolute #) 0 (0-0.5); Granulocyte Absolute (ANC) 8.81 (1.4-6.9); Granulocytes % 90.5 % (36.0-66.0); Hematocrit 28.4 % (42-50); Hemoglobin 8.9 gm/dl (12.5-18.0); Lymphocyte (Absolute #) 0.63 (1.0-4.6); Lymphocytes % 6.5 % (24.0-44.0); Mean Corpuscular Hgb Concent. 31.3 g/dl (32-36); Mean Platelet Volume 8.4 fl (6-9.5); Monocyte (Absolute #) 0.29 (0.0-1.3); Platelet Count 163 K/mm3 (150-450); Red Blood Count 3.02 M/mm3 (4.1-5.6); Red Cell Distribution Width 13.3 % (11.5-14.0); White Blood Count 9.7 K/mm3 (4.0-10.5)
[2018-02-16 07:10] LABS: Mean Corpuscular Hemoglobin 29.4 pg (26-32)
[2018-02-16] MEDS: Advair Hfa 230/21 Mcg COMMON CANISTER IH SCH ×2 (07:14→18:51)
[2018-02-16 07:33] LABS: ALKALINE PHOSPHATASE 72 U/L (38-126); BLOOD UREA NITROGEN 17 mg/dL (9-20); CHLORIDE 99 mmol/L (98-107); Calcium 8.5 mg/dL (8.4-10.2); Carbon Dioxide 32 mmol/L (22-30); Glucose 180 mg/dL (74-106); Potassium 4.8 mmol/L (3.5-5.1); SGOT/AST 13 U/L (17-59); SGPT/ALT 16 U/L (0-50); SODIUM 136 mmol/L (137-145); Total Protein 5.5 g/dL (6.3-8.2)
--- NOTE | 2018-02-16 08:12 | PCM.NOTE ---
Date and Time: 02/16/18 0808 Subjective Assessment: patient still very short of breath, got PICC line yesterday. notes some minimal improvement Objective Exam General Appearance: no apparent distress, cachetic, thin Neurologic Exam: alert Skin Exam: normal color Respiratory Exam: prolonged expirations, crackles/rales Cardiovascular Exam: regular rate/rhythm, normal heart sounds Gastrointestinal/Abdomen Exam: soft, No tenderness, No mass Extremity Exam: normal inspection, normal range of motion OBJECTIVE DATA Vital Signs: Vital Signs - 24 hr Temp Pulse Resp BP Pulse Ox 02/16/18 04:00 98.2 F 79 20 146/80 98 02/16/18 03:36 79 20 98 02/15/18 23:43 98.4 F 87 20 138/83 97 02/15/18 22:57 90 20 99 02/15/18 20:00 97.9 F 89 20 134/78 98 02/15/18 18:48 82 20 98 02/15/18 16:00 98.6 F 85 20 137/67 100 02/15/18 15:06 71 20 98 02/15/18 12:00 97.7 F 77 20 168/85 98 Oxygen-Last 24 hours O2 Percentage 5 Liters = 40% O2 Percentage 5 Liters = 40% O2 Percentage 5 Liters = 40% O2 Percentage 5 Liters = 40% O2 Percentage 5 Liters = 40% Pain Assessment - Last Documented Pain Intensity 4 Pain Scale Used 0-10 Pain Scale Intake and Output: Intake & Output 02/13/18 02/14/18 02/15/18 02/16/18 11:59 11:59 11:59 11:59 Intake Total 3614 3792 840 1540 Output Total 1400 1850 1700 2900 Balance 2214 1942 -860 -1360 Weight 60.7 kg 60 kg 63.4 kg 63.8 kg Lab Results: Accuchecks Date 02/15/18 Date 02/15/18 Time 16:30 Time 11:30 Accucheck Value: 349 Accucheck Value: 165 Accucheck Value: 125 Lab Results-Last 24 Hours 02/16/18 02/16/18 Range/Units 06:45 06:45 WBC 9.7 (4.0-10.5) K/mm3 RBC 3.02 L (4.1-5.6) M/mm3 Hgb 8.9 L (12.5-18.0) gm/dl Hct 28.4 L (42-50) % MCV 94.0 (78-100) fl MCH 29.4 (26-32) pg MCHC 31.3 L (32-36) g/dl RDW 13.3 (11.5-14.0) % Plt Count 163 (150-450) K/mm3 MPV 8.4 (6-9.5) fl Gran % 90.5 H (36.0-66.0) % Eos # (Auto) 0 (0-0.5) Absolute Lymphs (auto) 0.63 L (1.0-4.6) Absolute Monos (auto) 0.29 (0.0-1.3) Lymphocytes % 6.5 L (24.0-44.0) % Monocytes % 3.0 (0.0-12.0) % Eosinophils % 0.0 (0.00-5.0) % Basophils % 0.0 (0.0-0.4) % Absolute Granulocytes 8.81 H (1.4-6.9) Basophils # 0 (0-0.4) Sodium 136 L (137-145) mmol/L Potassium 4.8 (3.5-5.1) mmol/L Chloride 99 (98-107) mmol/L Carbon Dioxide 32 H (22-30) mmol/L Anion Gap 10.0 (5-15) MEQ/L BUN 17 (9-20) mg/dL Creatinine 0.60 L (0.66-1.25) mg/dL Estimated GFR > 60.0 ML/MIN Glucose 180 H (74-106) mg/dL Calcium 8.5 (8.4-10.2) mg/dL Total Bilirubin 0.30 (0.2-1.3) mg/dL AST 13 L (17-59) U/L ALT 16 (0-50) U/L Alkaline Phosphatase 72 (38-126) U/L Serum Total Protein 5.5 L (6.3-8.2) g/dL Albumin 3.0 L (3.5-5.0) g/dL Radiology Exams: Radiology Procedures Category Date Time Status GUIDANCE FOR NEEDLE PLACEMENT [US] Routine Exams 02/15/18 08:54 Completed PICC LINE PLACEMENT Routine Exams 02/15/18 08:00 Completed Multi-Disciplinary Progress Notes: Multi-Disciplinary Progress Notes 02/15/18 14:00 (created 02/15/18 14:58) Case Management Note by Justa Moore VISITED WITH PT AND REVIEWED DISCHARGE PLAN. REPORTS THAT HE IS FEELING FRUSTRATED BECAUSE HE DOES NOT WANT TO GO TO REHAB. REPORTS THAT HE JUST WANTS TO GO HOME, BUT HE KNOWS THAT HE CAN NOT REALLY CARE FOR HIMSELF AT THIS TIME. AGAIN, DISCUSSED [facility]. ENCOURAGED PT TO TALK WITH SON, ZENAIDA TURPIN, AND INCLUDE IN DECISION MAKING. ALSO, ENCOURAGED PT TO TRY REHAB SHORT TERM. REPORTS THAT HE WILL THINK ABOUT IT. WILL CONTINUE TO FOLLOW FOR ALL DC NEEDS. Initialized on 02/15/18 14:58 - END OF NOTE Assessment/Plan (1) Acute exacerbation of chronic obstructive airways disease Current Visit: Yes Status: Acute Onset Date: ~01/29/18 Assessment & Plan: receiving zosyn, zithromax and IV solumedrol 40mg IV q8hrs. will likely need prolonged stay with current condition Code(s): J44.1 - CHRONIC OBSTRUCTIVE PULMONARY DISEASE W (ACUTE) EXACERBATION (2) Urinary retention due to benign prostatic hyperplasia Current Visit: Yes Status: Acute Assessment & Plan: almanza in place, have started him on flomax Code(s): N40.1 - BENIGN PROSTATIC HYPERPLASIA WITH LOWER URINARY TRACT SYMP; R33.8 - OTHER RETENTION OF URINE (3) Pneumonia Current Visit: No Status: Acute Qualifiers: Pneumonia type: due to unspecified organism Laterality: right Lung location: middle lobe of lung Qualified Code(s): J18.1 - Lobar pneumonia, unspecified organism Assessment & Plan: on zosyn and zithromax currently Code(s): J18.9 - PNEUMONIA, UNSPECIFIED ORGANISM (4) Chronic hypoxemic respiratory failure Current Visit: No Status: Chronic (5) End stage COPD Current Visit: No Status: Chronic Assessment & Plan: patient has been on hospice in the past and had a bad experience, won't even consider this. might consider a rehab stay vs swing bed Code(s): J44.9 - CHRONIC OBSTRUCTIVE PULMONARY DISEASE, UNSPECIFIED (6) Abdominal pain Current Visit: No Status: Resolved Assessment & Plan: distension seems due to air hunger, nothing acute on multiple CT scans. discussed there isn't much we can do for this for him. he understands Code(s): R10.9 - UNSPECIFIED ABDOMINAL PAIN
[2018-02-16] MEDS: NovoLIN R SQ PRN ×4 (08:14→22:30)
[2018-02-16] MEDS: Flomax 0.4 MG PO SCH (08:14)
[2018-02-16] MEDS: ELIQUIS 2.5 MG TABLET PO SCH ×2 (08:14→22:07)
[2018-02-16] MEDS: Pepcid 20 MG VIAL IV SCH ×2 (08:14→22:06)
[2018-02-16] MEDS: Colace 100 MG PO SCH ×2 (08:14→22:07)
[2018-02-16] MEDS: Protonix 40MG Tablet PO SCH ×2 (08:14→22:07)
[2018-02-16] MEDS: Mylicon 80MG PO PRN ×2 (12:34→17:30)
[2018-02-16] MEDS: Norco 10/325 MG Tablet PO PRN ×2 (18:01→22:07)
[2018-02-16] MEDS: xanAX 0.5 MG PO PRN (22:07)
[2018-02-16] MEDS: Zithromax 500 MG/ 250 ML NaCl Premix 500 MG/250 ML IVPB IV SCH (22:10)
[2018-02-17] MEDS: Zosyn 3.375GM/100 Ml D5W 3.375 GM/100 ML IVPB IV SCH ×4 (00:53→18:19)
[2018-02-17] MEDS: DUONEB 0.5-3 MG/3 ml Neb IH SCH ×6 (03:16→22:46)
[2018-02-17] MEDS: solu-MEDROL 40 MG IV SCH ×3 (06:48→21:24)
[2018-02-17] MEDS: Advair Hfa 230/21 Mcg COMMON CANISTER IH SCH ×2 (07:29→18:31)
[2018-02-17] MEDS: NovoLIN R SQ PRN ×4 (08:39→21:49)
[2018-02-17] MEDS: Flomax 0.4 MG PO SCH (10:37)
[2018-02-17] MEDS: Protonix 40MG Tablet PO SCH ×2 (10:37→21:19)
[2018-02-17] MEDS: Pepcid 20 MG VIAL IV SCH ×2 (10:37→21:21)
[2018-02-17] MEDS: Colace 100 MG PO SCH ×2 (10:37→21:19)
[2018-02-17] MEDS: ELIQUIS 2.5 MG TABLET PO SCH ×2 (10:37→21:19)
--- NOTE | 2018-02-17 10:55 | PCM.NOTE ---
Date and Time: 02/17/18 1050 Subjective Assessment: Patient reports he slept better last night. he reports his belly has been distended and comes and goes for the past 4 months and his doctors don't know why. He denies constipation. He reports the urine in his almanza is more clear now (it had been red) and they had to place the almanza because he could not urinate. He denies any pains. No concerns today. - Review of Systems Constitutional: No Symptoms Eyes: No Symptoms Ears, Nose, & Throat: No Symptoms Respiratory: Short Of Breath, Wheezing Cardiac: No Symptoms Abdominal/Gastrointestinal: Other (abdominal distension), No Nausea, No Vomiting , No Constipation Genitourinary Symptoms: Other (almanza in place, some red urine that is improving. ) Musculoskeletal: No Symptoms Skin: Other (skin tears easily and he has skin tears on both arms) Objective Exam General Appearance: no apparent distress, alert, other (smiling, talktaive) Neurologic Exam: alert, cooperative, normal mood/affect Skin Exam: normal color, warm, dry, other (skin tears bilat with tegederm, picc line in right arm, multiple ecchymosis on both arms) Respiratory Exam: other (distant breath sounds bilat), No crackles/rales, No rhonchi, No wheezing Cardiovascular Exam: regular rate/rhythm, normal heart sounds, No murmur, No friction rub, No gallop Gastrointestinal/Abdomen Exam: soft, normal bowel sounds, distention, No mass, No guarding Extremity Exam: other (no c/c/e) OBJECTIVE DATA Vital Signs: Vital Signs - 24 hr Temp Pulse Resp BP Pulse Ox 02/17/18 08:00 19 02/17/18 07:47 98.1 F 80 19 162/83 100 02/17/18 07:30 77 18 100 02/17/18 04:00 97.8 F 82 18 135/71 98 02/17/18 03:16 84 18 95 02/17/18 00:00 20 02/16/18 23:49 97.8 F 96 H 19 116/69 97 02/16/18 23:11 94 H 19 96 02/16/18 20:00 20 02/16/18 19:55 98.3 F 88 20 132/77 95 02/16/18 18:51 91 H 19 97 02/16/18 16:00 98.6 F 94 H 22 143/77 96 02/16/18 15:35 68 18 98 02/16/18 12:00 98.3 F 98 H 24 123/62 98 02/16/18 10:57 78 18 99 Oxygen-Last 24 hours O2 Percentage 5 Liters = 40% O2 Percentage 5 Liters = 40% O2 Percentage 5 Liters = 40% O2 Percentage 5 Liters = 40% O2 Percentage 5 Liters = 40% O2 Percentage 5 Liters = 40% Pain Assessment - Last Documented Pain Intensity 4 Pain Scale Used 0-10 Pain Scale Intake and Output: Intake & Output 02/15/18 02/16/18 02/17/18 02/18/18 06:59 06:59 06:59 06:59 Intake Total 840 1540 1800 Output Total 1700 2900 2650 Balance -667 -4052 -850 Weight 63.4 kg 63.8 kg 63.2 kg Lab Results: Accuchecks Date 02/17/18 Date 02/16/18 Date 02/16/18 Date 02/16/18 Time 07:30 Time 21:00 Time 16:30 Time 11:30 Accucheck Value: 165 Accucheck Value: 214 Accucheck Value: 201 Accucheck Value: 386 Assessment/Plan (1) Acute exacerbation of chronic obstructive airways disease Current Visit: Yes Status: Acute Onset Date: ~01/29/18 Assessment & Plan: Continue oxygen, breathing treatments, IV antibiotics, IV steroids. Code(s): J44.1 - CHRONIC OBSTRUCTIVE PULMONARY DISEASE W (ACUTE) EXACERBATION (2) Urinary retention due to benign prostatic hyperplasia Current Visit: Yes Status: Acute Assessment & Plan: Almanza catheter in place. Code(s): N40.1 - BENIGN PROSTATIC HYPERPLASIA WITH LOWER URINARY TRACT SYMP; R33.8 - OTHER RETENTION OF URINE (3) Chronic hypoxemic respiratory failure Current Visit: No Status: Chronic (4) End stage COPD Current Visit: No Status: Chronic Code(s): J44.9 - CHRONIC OBSTRUCTIVE PULMONARY DISEASE, UNSPECIFIED
[2018-02-17] MEDS: xanAX 0.5 MG PO PRN (21:18)
[2018-02-17] MEDS: Norco 10/325 MG Tablet PO PRN (21:19)
[2018-02-17] MEDS: Zithromax 500 MG/ 250 ML NaCl Premix 500 MG/250 ML IVPB IV SCH (21:26)
[2018-02-18] MEDS: DUONEB 0.5-3 MG/3 ml Neb IH SCH ×6 (03:19→23:01)
[2018-02-18] MEDS: solu-MEDROL 40 MG IV SCH ×3 (06:29→21:44)
[2018-02-18] MEDS: Zosyn 3.375GM/100 Ml D5W 3.375 GM/100 ML IVPB IV SCH ×4 (06:30→17:19)
[2018-02-18] MEDS: Advair Hfa 230/21 Mcg COMMON CANISTER IH SCH ×2 (07:20→19:06)
[2018-02-18] MEDS: NovoLIN R SQ PRN ×4 (08:02→21:50)
--- NOTE | 2018-02-18 08:57 | PCM.NOTE ---
Date and Time: 02/18/18 0851 Subjective Assessment: Patient is frustrated that his urine is bloody again. He states the whole reason he came into the hospital was because he could not urinate. He states he has had some wheezing and his breathing feels like it is at baseline. - Review of Systems Constitutional: No Symptoms Eyes: No Symptoms Ears, Nose, & Throat: No Symptoms Respiratory: Short Of Breath, Wheezing Cardiac: No Symptoms Abdominal/Gastrointestinal: Other (abdominal distension/pain) Genitourinary Symptoms: Hematuria, Urinary Retention Musculoskeletal: No Symptoms Skin: Other (multiple skin tears) Objective Exam General Appearance: no apparent distress, alert Neurologic Exam: alert, cooperative Skin Exam: normal color, other (multiple skin tears over arms bilat with tegaderm over these) Respiratory Exam: other (few scattered wheezes, equal breath sounds), No respiratory distress, No accessory muscle use, No crackles/rales, No rhonchi, No stridor Cardiovascular Exam: regular rate/rhythm, normal heart sounds, No murmur, No friction rub, No gallop Gastrointestinal/Abdomen Exam: soft, distention, No normal bowel sounds, No tenderness, No mass, No guarding Extremity Exam: other (no c/c/e) OBJECTIVE DATA Vital Signs: Vital Signs - 24 hr Temp Pulse Resp BP Pulse Ox 02/18/18 08:06 75 18 99 02/18/18 08:04 99 02/18/18 08:00 18 02/18/18 07:38 97.6 F 75 20 134/90 99 02/18/18 03:52 97.9 F 78 18 140/77 100 02/18/18 03:19 78 18 100 02/17/18 23:53 98.4 F 98 H 20 133/71 95 02/17/18 22:46 98 H 20 95 02/17/18 19:33 98.3 F 92 H 18 133/77 97 02/17/18 18:31 88 18 98 02/17/18 16:00 98.2 F 96 H 20 149/79 98 02/17/18 15:24 84 18 99 02/17/18 12:00 98.2 F 95 H 20 168/82 99 02/17/18 11:43 78 18 99 Oxygen-Last 24 hours O2 Percentage 5 Liters = 40% O2 Percentage 5 Liters = 40% O2 Percentage 5 Liters = 40% O2 Percentage 5 Liters = 40% O2 Percentage 5 Liters = 40% O2 Percentage 5 Liters = 40% Pain Assessment - Last Documented Pain Intensity 4 Pain Scale Used 0-10 Pain Scale Intake and Output: Intake & Output 02/16/18 02/17/18 02/18/18 02/19/18 06:59 06:59 06:59 06:59 Intake Total 1540 1800 1700 480 Output Total 2900 2650 4500 Balance -1360 -850 -2800 480 Weight 63.8 kg 63.2 kg 61.7 kg Lab Results: Accuchecks Date 02/18/18 Date 02/17/18 Date 02/17/18 Date 02/17/18 Time 07:30 Time 16:30 Time 11:30 Accucheck Value: 238 Accucheck Value: 240 Accucheck Value: 353 Accucheck Value: 205 Assessment/Plan (1) Acute exacerbation of chronic obstructive airways disease Current Visit: Yes Status: Acute Onset Date: ~01/29/18 Assessment & Plan: He has received 5 days of azithromycin so this was stopped. This will be day 6 of zosyn. Continue with oxygen, breathing treatments. Code(s): J44.1 - CHRONIC OBSTRUCTIVE PULMONARY DISEASE W (ACUTE) EXACERBATION (2) Urinary retention due to benign prostatic hyperplasia Current Visit: Yes Status: Acute Assessment & Plan: Almanza continues to be in place, PSA ordered today as I couldn't find this result if it was ordered when he came in. Urology consult requested although I did explain to the patient that I don't think we have a urologist that comes here and he may have to see them as an outpatient. Continue with flomax. Code(s): N40.1 - BENIGN PROSTATIC HYPERPLASIA WITH LOWER URINARY TRACT SYMP; R33.8 - OTHER RETENTION OF URINE (3) Chronic hypoxemic respiratory failure Current Visit: No Status: Chronic (4) End stage COPD Current Visit: No Status: Chronic Code(s): J44.9 - CHRONIC OBSTRUCTIVE PULMONARY DISEASE, UNSPECIFIED (5) Hematuria Current Visit: Yes Status: Acute Assessment & Plan: Most likely due to trauma from almanza placement and the fact that he is on eliquis for history of PE. Code(s): R31.9 - HEMATURIA, UNSPECIFIED (6) Hx pulmonary embolism Current Visit: No Status: Chronic Assessment & Plan: Continue anticoagulation. Code(s): Z86.711 - PERSONAL HISTORY OF PULMONARY EMBOLISM
[2018-02-18] MEDS: Flomax 0.4 MG PO SCH (09:31)
[2018-02-18] MEDS: Protonix 40MG Tablet PO SCH ×2 (09:31→21:42)
[2018-02-18] MEDS: ELIQUIS 2.5 MG TABLET PO SCH ×2 (09:31→21:42)
[2018-02-18] MEDS: Colace 100 MG PO SCH ×2 (09:31→21:42)
[2018-02-18] MEDS: Pepcid 20 MG VIAL IV SCH ×2 (09:31→21:47)
[2018-02-18 09:40] LABS: Hemoglobin 10.2 gm/dl (12.5-18.0); Mean Cell Volume 93.8 fl (78-100); Mean Corpuscular Hemoglobin 29.9 pg (26-32); Mean Corpuscular Hgb Concent. 31.9 g/dl (32-36); Mean Platelet Volume 8.1 fl (6-9.5); Platelet Count 204 K/mm3 (150-450); Red Blood Count 3.41 M/mm3 (4.1-5.6); Red Cell Distribution Width 13.6 % (11.5-14.0); White Blood Count 13.8 K/mm3 (4.0-10.5)
[2018-02-18 09:53] LABS: BLOOD UREA NITROGEN 21 mg/dL (9-20); CHLORIDE 98 mmol/L (98-107); Calcium 8.8 mg/dL (8.4-10.2); Carbon Dioxide 31 mmol/L (22-30); Creatinine 1 0.87 mg/dL (0.66-1.25); Glucose 281 mg/dL (74-106); Potassium 4.4 mmol/L (3.5-5.1); SODIUM 137 mmol/L (137-145)
[2018-02-18 10:10] LABS: Lymphocytes 4 % (24-44); Monocyte 1 % (0.0-12.0); Neutrophils 95 % (36.-66.); Total Cells Counted 100
[2018-02-18 10:11] LABS: Platelet Estimate NORMAL (NORMAL)
[2018-02-18] MEDS ORDERED: NYSTOP 30 GM CREAM ONE (21:57)
[2018-02-18] MEDS: Norco 10/325 MG Tablet PO PRN (21:58)
[2018-02-18] MEDS: xanAX 0.5 MG PO PRN (21:58)
[2018-02-18] MEDS ORDERED: NYSTOP 15 GM CREAM TOP SCH (22:00)
[2018-02-18] MEDS: NYSTOP 30 GM CREAM TOP SCH (22:01)
[2018-02-19] MEDS: Zosyn 3.375GM/100 Ml D5W 3.375 GM/100 ML IVPB IV SCH ×3 (01:05→12:04)
[2018-02-19] MEDS: DUONEB 0.5-3 MG/3 ml Neb IH SCH ×3 (03:11→11:00)
[2018-02-19] MEDS: solu-MEDROL 40 MG IV SCH ×2 (06:16→14:02)
[2018-02-19] MEDS: Mylicon 80MG PO PRN (06:25)
[2018-02-19] MEDS: Advair Hfa 230/21 Mcg COMMON CANISTER IH SCH (06:35)
--- NOTE | 2018-02-19 08:30 | PCM.DS ---
Discharge Summary Date of Admission: 02/11/18 22:09 Admitting Physician: IBETH JAEGER Consults: Consults on Case 02/18/18 08:49 Consult Urology ROUTINE Primary Care Provider: IBETH JAEGER Allergies Allergies No Known Drug Allergies Allergy (Verified 02/11/18 17:45) Hospital Summary - Hospital Course Hospital Course: patient was admitted with urinary retention, doing well at this time. has had a almanza and was started on flomax. he was found to have copd exacerbation and chronic infiltrates, has been on zosyn and zithromax, adequately treated. lungs are clear now, back to baseline. has chronic respiratory failure - Vitals & Intake/Output Vital Signs: Vital Signs Temperature 98.1 F 02/19/18 07:48 Pulse Rate 76 02/19/18 07:48 Respiratory Rate 20 02/19/18 07:48 Blood Pressure 146/83 02/19/18 07:48 O2 Sat by Pulse Oximetry 97 02/19/18 07:48 Oxygen-Last Documented O2 Percentage 5 Liters = 40% Intake & Output: Intake & Output 02/16/18 02/17/18 02/18/18 02/19/18 11:59 11:59 11:59 11:59 Intake Total 1540 1800 2180 680 Output Total 2900 2650 4500 9873 Balance -3768 -280 -7217 -9001 Weight 63.8 kg 63.2 kg 61.7 kg 61 kg - Lab Result Diagrams: 02/18/18 09:30 02/18/18 09:30 Lab Results-Last 24 Hrs: Accuchecks Date 02/18/18 Date 02/18/18 Date 02/18/18 Time 16:30 Time 11:30 Accucheck Value: 314 Accucheck Value: 290 Accucheck Value: 190 Accucheck Value: 237 Lab Results-Last 24 Hours 02/18/18 02/18/18 02/18/18 Range/Units 09:30 09:30 09:30 WBC 13.8 H (4.0-10.5) K/mm3 RBC 3.41 L (4.1-5.6) M/mm3 Hgb 10.2 L (12.5-18.0) gm/dl Hct 32.0 L (42-50) % MCV 93.8 (78-100) fl MCH 29.9 (26-32) pg MCHC 31.9 L (32-36) g/dl RDW 13.6 (11.5-14.0) % Plt Count 204 (150-450) K/mm3 MPV 8.1 (6-9.5) fl Segmented Neutrophils 95 H (36.-66.) % Lymphocytes (Manual) 4 L (24-44) % Monocytes (Manual) 1 (0.0-12.0) % Platelet Estimate NORMAL (NORMAL) RBC Morphology NORMAL Sodium 137 (137-145) mmol/L Potassium 4.4 (3.5-5.1) mmol/L Chloride 98 (98-107) mmol/L Carbon Dioxide 31 H (22-30) mmol/L Anion Gap 12.0 (5-15) MEQ/L BUN 21 H (9-20) mg/dL Creatinine 0.87 (0.66-1.25) mg/dL Estimated GFR > 60.0 ML/MIN Glucose 281 H (74-106) mg/dL Calcium 8.8 (8.4-10.2) mg/dL PSA Screen 3.590 (0-4) ng/mL Micro Results-Entire Visit: Accuchecks Date 02/18/18 Date 02/18/18 Date 02/18/18 Time 16:30 Time 11:30 Accucheck Value: 314 Accucheck Value: 290 Accucheck Value: 190 Accucheck Value: 237 - Procedures and Test Procedures and Tests throughout Hospitalization: Therapy Orders & Screens 02/11/18 22:15 Respiratory Nebulizer Q4H Comment: Respiratory Therapy Consult ROUTINE Comment: Reason For Exam: 02/11/18 23:26 Oxygen NASAL CANNULA 5 lpm Comment: Diagnosis: exacerbation COPD ; Left renal lesion on CT; chronic pancreatitis ; diverti Peak Expiratory Flow Rate ONCE Comment: Reason For Exam: Diagnosis: exacerbation COPD ; Left renal lesion on CT; chronic pancreatitis ; diverti 02/11/18 23:27 Respiratory Therapy Assessment DAILY Comment: Diagnosis: exacerbation COPD ; Left renal lesion on CT; chronic pancreatitis ; diverti 02/12/18 07:00 Respiratory MDI BID Comment: ADVAIR 230/21 2 PUFFS BID Diagnosis: exacerbation COPD ; Left renal lesion on CT; chronic pancreatitis ; diverti 02/13/18 09:07 PT Eval & Treat (MD Order) ROUTINE Reason for Eval:: gen weakness Diagnosis: exacerbation COPD ; Left renal lesion on CT; chronic pancreatitis ; diverti Discharge Exam General Appearance: no apparent distress, alert Skin Exam: normal color, warm, dry Respiratory Exam: diminished breath sounds, prolonged expirations Cardiovascular Exam: regular rate/rhythm, normal heart sounds Gastrointestinal/Abdomen Exam: soft, No tenderness, No mass Extremity Exam: normal inspection, normal range of motion Final Diagnosis/Problem List - Final Discharge Diagnosis/Problem (1) Acute exacerbation of chronic obstructive airways disease Current Visit: Yes Status: Acute Onset Date: ~01/29/18 Assessment & Plan: resolved at this time (2) Urinary retention due to benign prostatic hyperplasia Current Visit: Yes Status: Acute Assessment & Plan: will need to see urology in followup, continue flomax and keep almanza in place until seen by urology. has seen Dr Monson in the past (3) Pneumonia Current Visit: No Status: Acute (4) Chronic hypoxemic respiratory failure Current Visit: No Status: Chronic (5) End stage COPD Current Visit: No Status: Chronic (6) Abdominal pain Current Visit: No Status: Resolved - Discharge Disposition: Home, Self-Care Condition: Good Prescriptions: New Nystatin Cream 30 gm [Nystop 30 gm Cream] 30 gm TOP BID #30 g Continue Metformin HCl 500 mg [Glucophage 500 MG] 500 mg PO BID Apixaban [Eliquis 5 mg Tablet] 5 mg PO BID Ipratropium/Albuterol Sulfate [Iprat-Albut 0.5-3(2.5) mg/3 ml] 3 ml IH Q4H Alprazolam 0.5 mg PO HS PRN PRN #30 tablet PRN Reason: Anxiety Hydrocodone/APAP 10/325 mg [[place] 10/325 MG Tablet] 1 tab PO Q4H PRN PRN PRN Reason: Pain PANTOPRAZOLE 40 mg Tablet [Protonix 40MG Tablet] 40 mg PO BID #60 tab Fluticasone/Umeclidin/Vilanter [Trelegy Ellipta 100-62.5-25] 1 puff IH DAILY Simethicone 80 mg [Mylicon 80MG] 80 mg PO QID PRN PRN #50 tab.chew PRN Reason: Gas Prednisone 20 mg [Deltasone 20 mg] 20 mg PO UD #30 tablet Follow up with: ALYSSA MONSON [COURTESY STAFF] - 1 Week (needs seen JACK by any provider in the office)
[2018-02-19] MEDS: NovoLIN R SQ PRN (08:37)
[2018-02-19] MEDS: Flomax 0.4 MG PO SCH (09:36)
[2018-02-19] MEDS: ELIQUIS 2.5 MG TABLET PO SCH (09:36)
[2018-02-19] MEDS: Colace 100 MG PO SCH (09:36)
[2018-02-19] MEDS: Pepcid 20 MG VIAL IV SCH (09:36)
[2018-02-19] MEDS: Protonix 40MG Tablet PO SCH (09:36)
[2018-02-19] MEDS: NYSTOP 30 GM CREAM TOP SCH (09:37)
[2018-02-19] MEDS: Norco 10/325 MG Tablet PO PRN (09:39)
[2018-02-19 11:54] VITALS: BP 134/78; PULSE 86; O2SAT 98
== END 2018-02-19 14:30 | DRG 190 ==
LOC: ED 17:16 → OBSVTOIN 22:09 → MED SURG 22:09
PROVIDERS: ADMIT Family Medicine; ATTEND Family Medicine
DX: J44.1 Chronic obstructive pulmonary disease with (acute) exacerbation (principal); J18.9 Pneumonia, unspecified organism; J96.11 Chronic respiratory failure with hypoxia; N40.1 Benign prostatic hyperplasia with lower urinary tract symptoms; R33.8 Other retention of urine; R14.0 Abdominal distension (gaseous); F41.9 Anxiety disorder, unspecified; J60 Coalworker's pneumoconiosis; Z86.711 Personal history of pulmonary embolism; E11.9 Type 2 diabetes mellitus without complications; M19.90 Unspecified osteoarthritis, unspecified site; Z71.89 Other specified counseling
CPT/HCPCS: 36000; 36415; 36569; 36600; 51702; 71045; 73502; 73560; 74176; 76942; 77001; 80048; 80053; 81002; 82150; 82375; 82803; 82962; 83036; 83690; 83880; 84484; 85025; 85027; 85379; 90686; 93005; 93041; 94150; 94640; 94760; 94762; 99285; C1769; G0103; J0456; J1642; J2543; J2920; J2930; A9270-GY

== ENCOUNTER 2018-06-05 20:32 | Inpatient (IN) | payer BLACK LUNG, MEDICARE, OTHER ==
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
[2018-06-05] MEDS ORDERED: solu-MEDROL 125 MG IV ONE (21:30)
[2018-06-05] MEDS ORDERED: solu-MEDROL 125 MG ONE (21:41)
[2018-06-05] MEDS: Sodium Chloride 0.9% 1000 ML 1,000 ML IV SCH (21:53)
[2018-06-05 22:00] LABS: VBG BASE EXCESS 1.5 (-2.0-2.0); VBG CARBOXYHEMOGLOBIN 2.3 % T HGB (0.0-6.9); VBG HCO3- 25.9 meq/L (22-28); VBG HEMOGLOBIN 13.5; VBG O2 SATURATION 90.4 (95-100); VBG POTASSIUM 3.7 (3.5-5.1); VBG pH 7.43 (7.32-7.42)
[2018-06-05 22:14] LABS: BASOPHIL % 0.1 % (0.0-0.4); Basophil (Absolute #) 0.02 (0-0.4); Eosinophil % 0.5 % (0.00-5.0); Eosinophil (Absolute #) 0.09 (0-0.5); Hematocrit 40.3 % (42-50); Lymphocyte (Absolute #) 3.11 (1.0-4.6); Lymphocytes % 17.3 % (24.0-44.0); Mean Cell Volume 92.2 fl (78-100); Mean Corpuscular Hemoglobin 29.7 pg (26-32); Mean Corpuscular Hgb Concent. 32.3 g/dl (32-36); Mean Platelet Volume 8.4 fl (6-9.5); Monocyte (Absolute #) 0.91 (0.0-1.3); Monocytes % 5.1 % (0.0-12.0); Platelet Count 234 K/mm3 (150-450); Red Blood Count 4.37 M/mm3 (4.1-5.6); Red Cell Distribution Width 13.5 % (11.5-14.0)
[2018-06-05 22:39] LABS: ALBUMIN 4.1 g/dL (3.5-5.0); ALKALINE PHOSPHATASE 58 U/L (38-126); ANION GAP 14.8 MEQ/L (5-15); BLOOD UREA NITROGEN 17 mg/dL (9-20); CHLORIDE 103 mmol/L (98-107); Calcium 9.1 mg/dL (8.4-10.2); Carbon Dioxide 25 mmol/L (22-30); Creatinine 1 0.79 mg/dL (0.66-1.25); Glucose 178 mg/dL (74-106); NT PRO BNP 241 pg/mL (0-900); Potassium 3.8 mmol/L (3.5-5.1); SGOT/AST 17 U/L (17-59); SGPT/ALT 16 U/L (0-50); SODIUM 139 mmol/L (137-145); Total Protein 6.9 g/dL (6.3-8.2)
[2018-06-05] MEDS ORDERED: ROCEPHIN 1 Gm-D5w 50 ml Bag** 1 G/50 ML IVPB IV STA (22:48)
[2018-06-05] MEDS ORDERED: ROCEPHIN 1 Gm-D5w 50 ml Bag** 1 G/50 ML IVPB IV ONE (22:55)
[2018-06-05] MEDS ORDERED: Sodium Chloride 0.9% 1000 ML 1,000 ML IV STA (23:08)
[2018-06-05] MEDS ORDERED: XYLOCAINE 2% Uro-Jet TOP ONE (23:35)
[2018-06-05] MEDS ORDERED: XYLOCAINE 2% Uro-Jet ONE (23:36)
[2018-06-06 00:28] LABS: Appearance CLEAR (CLEAR); Bilirubin NEGATIVE (NEGATIVE); Blood NEGATIVE Ery/ul (0-5); Glucose NEGATIVE (NEGATIVE); Ketones NEGATIVE (NEGATIVE); Leukocyte Esterase NEGATIVE (NEGATIVE); Mucus SLIGHT /HPF (NEGATIVE); Nitrite NEGATIVE (NEGATIVE); Protein,Urine Dip NEGATIVE (Negative); RBC 0-2 /HPF (0-2); Specific Gravity 1.013 (1.005-1.025); Urobilinogen NEGATIVE mg/dL (0-1)
[2018-06-06] MEDS ORDERED: PROVENTIL 2.5 MG/3 ML NEB IH ONE ×2 (00:40→01:11)
[2018-06-06] MEDS ORDERED: DUONEB 0.5-3 MG/3 ml Neb IH PRN (01:11)
[2018-06-06] MEDS ORDERED: TYLENOL 325 MG PO PRN (01:11)
[2018-06-06] MEDS: solu-MEDROL 125 MG IV SCH ×4 (02:44→17:36)
[2018-06-06] MEDS: Sodium Chloride 0.9% 1000 ML 1,000 ML IV SCH ×2 (02:54→14:09)
[2018-06-06 06:08] LABS: BASOPHIL % 0.1 % (0.0-0.4); Basophil (Absolute #) 0.01 (0-0.4); Eosinophil % 0.1 % (0.00-5.0); Eosinophil (Absolute #) 0.01 (0-0.5); Granulocytes % 91.8 % (36.0-66.0); Hemoglobin 11.3 gm/dl (12.5-18.0); Lymphocyte (Absolute #) 1.21 (1.0-4.6); Lymphocytes % 6.2 % (24.0-44.0); Mean Cell Volume 92.8 fl (78-100); Mean Corpuscular Hemoglobin 29.9 pg (26-32); Mean Corpuscular Hgb Concent. 32.3 g/dl (32-36); Mean Platelet Volume 8.3 fl (6-9.5); Monocyte (Absolute #) 0.35 (0.0-1.3); Monocytes % 1.8 % (0.0-12.0); Platelet Count 206 K/mm3 (150-450); Red Blood Count 3.77 M/mm3 (4.1-5.6); Red Cell Distribution Width 13.4 % (11.5-14.0); White Blood Count 19.5 K/mm3 (4.0-10.5)
[2018-06-06 06:34] LABS: ALBUMIN 3.2 g/dL (3.5-5.0); ALKALINE PHOSPHATASE 43 U/L (38-126); ANION GAP 11.7 MEQ/L (5-15); BLOOD UREA NITROGEN 16 mg/dL (9-20); CHLORIDE 106 mmol/L (98-107); Calcium 8.2 mg/dL (8.4-10.2); Carbon Dioxide 25 mmol/L (22-30); Creatinine 1 0.78 mg/dL (0.66-1.25); Glucose 220 mg/dL (74-106); Potassium 4.2 mmol/L (3.5-5.1); SGOT/AST 14 U/L (17-59); SGPT/ALT 15 U/L (0-50); SODIUM 138 mmol/L (137-145); Total Protein 5.8 g/dL (6.3-8.2)
[2018-06-06] MEDS: DUONEB 0.5-3 MG/3 ml Neb IH SCH ×5 (07:02→23:22)
[2018-06-06] MEDS: Advair Hfa 230/21 Mcg COMMON CANISTER IH SCH ×2 (07:03→19:30)
[2018-06-06] MEDS: NovoLOG Insulin SQ PRN ×4 (08:12→22:20)
--- NOTE | 2018-06-06 08:44 | XRAY ---
Indication: Short of breath 1 week. Comparison: February 10, 2018. Portable chest remains unchanged again demonstrating COPD, right lung postsurgical changes, bilateral fibrosis/scarring, and bibasilar pleural effusions/thickening. Heart is not enlarged. No new/acute findings.
[2018-06-06] MEDS: Zithromax 500 MG/ 250 ML NaCl Premix 500 MG/250 ML IVPB IV SCH (10:03)
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
[2018-06-06] MEDS ORDERED: Mylicon 80MG PO PRN (11:33)
[2018-06-06] MEDS: Protonix 40MG Tablet PO SCH ×2 (12:01→20:47)
[2018-06-06] MEDS: ELIQUIS 2.5 MG TABLET PO SCH ×2 (12:02→20:46)
[2018-06-06] MEDS: ROCEPHIN 1 Gm-D5w 50 ml Bag** 1 G/50 ML IVPB IV SCH (20:46)
[2018-06-06] MEDS ORDERED: NON-FORMULARY ITEM (Apixaban*** [Eliquis 5 Mg Tablet***] 5 MG) PO SCH (22:00)
[2018-06-07] MEDS: Norco 10/325 MG Tablet PO PRN (00:16)
[2018-06-07] MEDS: xanAX 0.5 MG PO PRN ×2 (00:16→22:40)
[2018-06-07] MEDS: solu-MEDROL 125 MG IV SCH ×5 (00:17→23:45)
[2018-06-07] MEDS: Sodium Chloride 0.9% 1000 ML 1,000 ML IV SCH ×2 (00:52→21:32)
[2018-06-07] MEDS: DUONEB 0.5-3 MG/3 ml Neb IH SCH ×6 (03:12→23:27)
[2018-06-07] MEDS ORDERED: DUONEB 0.5-3 MG/3 ml Neb IH ONE (05:38)
[2018-06-07] MEDS ORDERED: DUONEB 0.5-3 MG/3 ml Neb IH PRN ×2 (05:40→06:45)
[2018-06-07 06:05] LABS: Basophil (Absolute #) 0 (0-0.4); Eosinophil (Absolute #) 0 (0-0.5); Granulocytes % 94.3 % (36.0-66.0); Hematocrit 30.2 % (42-50); Hemoglobin 9.6 gm/dl (12.5-18.0); Lymphocyte (Absolute #) 0.52 (1.0-4.6); Lymphocytes % 2.7 % (24.0-44.0); Mean Cell Volume 93.5 fl (78-100); Mean Corpuscular Hemoglobin 29.7 pg (26-32); Mean Corpuscular Hgb Concent. 31.8 g/dl (32-36); Mean Platelet Volume 8.4 fl (6-9.5); Monocyte (Absolute #) 0.59 (0.0-1.3); Platelet Count 193 K/mm3 (150-450); Red Blood Count 3.23 M/mm3 (4.1-5.6); Red Cell Distribution Width 13.5 % (11.5-14.0); White Blood Count 19.4 K/mm3 (4.0-10.5)
[2018-06-07 06:12] LABS: ALBUMIN 2.9 g/dL (3.5-5.0); ALKALINE PHOSPHATASE 39 U/L (38-126); ANION GAP 10.5 MEQ/L (5-15); BLOOD UREA NITROGEN 17 mg/dL (9-20); CHLORIDE 109 mmol/L (98-107); Carbon Dioxide 24 mmol/L (22-30); Creatinine 1 0.65 mg/dL (0.66-1.25); Glucose 246 mg/dL (74-106); SGOT/AST 11 U/L (17-59); SGPT/ALT 13 U/L (0-50); SODIUM 140 mmol/L (137-145); Total Protein 5.3 g/dL (6.3-8.2)
[2018-06-07] MEDS: Advair Hfa 230/21 Mcg COMMON CANISTER IH SCH ×2 (06:56→19:20)
[2018-06-07 08:10] LABS: Slide Review 1 YES
[2018-06-07] MEDS: NovoLOG Insulin SQ PRN ×4 (08:15→21:33)
--- NOTE | 2018-06-07 09:20 | PCM.NOTE ---
Date and Time: 06/07/18918 Subjective Assessment: patient feeling slightly better today, cough is still very harsh and nonproductive. he gets very short of breath with coughing Objective Exam General Appearance: no apparent distress, alert Skin Exam: normal color, warm, dry Respiratory Exam: prolonged expirations, wheezing Cardiovascular Exam: regular rate/rhythm, normal heart sounds Gastrointestinal/Abdomen Exam: soft, No tenderness, No mass Extremity Exam: normal inspection, normal range of motion OBJECTIVE DATA Vital Signs: Vital Signs - 24 hr Temp Pulse Resp BP Pulse Ox 06/07/18 07:31 97.8 F 82 22 132/72 95 06/07/18 06:57 79 20 96 06/07/18 05:44 79 20 94 L 06/07/18 04:20 97.4 F 76 20 109/67 97 06/07/18 03:13 76 20 97 06/07/18 00:25 98.1 F 80 20 135/83 98 06/06/18 23:28 80 20 96 06/06/18 20:10 98.4 F 81 21 124/69 91 L 06/06/18 20:00 21 06/06/18 19:31 80 18 96 06/06/18 16:00 98.5 F 83 18 116/60 93 L 06/06/18 14:20 83 24 95 06/06/18 12:00 98.3 F 86 20 114/67 96 06/06/18 11:07 85 20 96 Oxygen-Last 24 hours O2 Percentage 5 Liters = 40% O2 Percentage 5 Liters = 40% O2 Percentage 5 Liters = 40% O2 Percentage 5 Liters = 40% O2 Percentage 4 Liters = 36% O2 Percentage 4 Liters = 36% Pain Assessment - Last Documented Pain Intensity 0 Pain Scale Used 0-10 Pain Scale Intake and Output: Intake & Output 06/04/18 06/05/18 06/06/18 06/07/18 11:59 11:59 11:59 11:59 Intake Total 498 4014 Output Total 1200 1975 Balance -702 9 Weight 61.5 kg 61.8 kg Lab Results: Accuchecks Date 06/06/18 Date 06/06/18 Date 06/06/18 Time 22:00 Time 16:30 Time 11:30 Accucheck Value: 246 Accucheck Value: 282 Accucheck Value: 223 Accucheck Value: 271 Lab Results-Last 24 Hours 06/06/18 06/06/18 06/07/18 Range/Units 06:00 06:15 05:20 WBC (4.0-10.5) K/mm3 RBC (4.1-5.6) M/mm3 Hgb (12.5-18.0) gm/dl Hct (42-50) % MCV (78-100) fl MCH (26-32) pg MCHC (32-36) g/dl RDW (11.5-14.0) % Plt Count (150-450) K/mm3 MPV (6-9.5) fl Gran % (36.0-66.0) % Eos # (Auto) (0-0.5) Absolute Lymphs (auto) (1.0-4.6) Absolute Monos (auto) (0.0-1.3) Lymphocytes % (24.0-44.0) % Monocytes % (0.0-12.0) % Eosinophils % (0.00-5.0) % Basophils % (0.0-0.4) % Absolute Granulocytes (1.4-6.9) Basophils # (0-0.4) Sodium 140 (137-145) mmol/L Potassium 4.0 (3.5-5.1) mmol/L Chloride 109 H (98-107) mmol/L Carbon Dioxide 24 (22-30) mmol/L Anion Gap 10.5 (5-15) MEQ/L BUN 17 (9-20) mg/dL Creatinine 0.65 L (0.66-1.25) mg/dL Estimated GFR > 60.0 ML/MIN Glucose 246 H (74-106) mg/dL Hemoglobin A1c 6.62 H (4.5-6.0) % Calcium 8.0 L (8.4-10.2) mg/dL Total Bilirubin 0.40 (0.2-1.3) mg/dL AST 11 L (17-59) U/L ALT 13 (0-50) U/L Alkaline Phosphatase 39 (38-126) U/L Troponin I < 0.012 (0.000-0.034) ng/mL Serum Total Protein 5.3 L (6.3-8.2) g/dL Albumin 2.9 L (3.5-5.0) g/dL Slides for Path Review 06/07/18 Range/Units 05:30 WBC 19.4 H (4.0-10.5) K/mm3 RBC 3.23 L (4.1-5.6) M/mm3 Hgb 9.6 L (12.5-18.0) gm/dl Hct 30.2 L (42-50) % MCV 93.5 (78-100) fl MCH 29.7 (26-32) pg MCHC 31.8 L (32-36) g/dl RDW 13.5 (11.5-14.0) % Plt Count 193 (150-450) K/mm3 MPV 8.4 (6-9.5) fl Gran % 94.3 H (36.0-66.0) % Eos # (Auto) 0 (0-0.5) Absolute Lymphs (auto) 0.52 L (1.0-4.6) Absolute Monos (auto) 0.59 (0.0-1.3) Lymphocytes % 2.7 L (24.0-44.0) % Monocytes % 3.0 (0.0-12.0) % Eosinophils % 0.0 (0.00-5.0) % Basophils % 0.0 (0.0-0.4) % Absolute Granulocytes 18.32 H (1.4-6.9) Basophils # 0 (0-0.4) Sodium (137-145) mmol/L Potassium (3.5-5.1) mmol/L Chloride (98-107) mmol/L Carbon Dioxide (22-30) mmol/L Anion Gap (5-15) MEQ/L BUN (9-20) mg/dL Creatinine (0.66-1.25) mg/dL Estimated GFR ML/MIN Glucose (74-106) mg/dL Hemoglobin A1c (4.5-6.0) % Calcium (8.4-10.2) mg/dL Total Bilirubin (0.2-1.3) mg/dL AST (17-59) U/L ALT (0-50) U/L Alkaline Phosphatase (38-126) U/L Troponin I (0.000-0.034) ng/mL Serum Total Protein (6.3-8.2) g/dL Albumin (3.5-5.0) g/dL Slides for Path Review YES Radiology Exams: Radiology Procedures Category Date Time Status CHEST 1 VIEW (PORTABLE) Stat Exams 06/05/18 21:16 Completed Assessment/Plan (1) Acute exacerbation of chronic obstructive airways disease Current Visit: No Status: Acute Onset Date: ~01/29/18 Assessment & Plan: continue rocephin/zithromax at this time, IV solu medrol and nebs Code(s): J44.1 - CHRONIC OBSTRUCTIVE PULMONARY DISEASE W (ACUTE) EXACERBATION (2) Black lung Current Visit: No Status: Chronic Code(s): J60 - COALWORKER'S PNEUMOCONIOSIS (3) Chronic hypoxemic respiratory failure Current Visit: No Status: Chronic (4) Hx pulmonary embolism Current Visit: No Status: Chronic Code(s): Z86.711 - PERSONAL HISTORY OF PULMONARY EMBOLISM (5) Protein calorie malnutrition Current Visit: No Status: Chronic Code(s): E46 - UNSPECIFIED PROTEIN- CALORIE MALNUTRITION (6) Weakness Current Visit: No Status: Chronic Onset Date: ~10/12/17 Code(s): R53.1 - WEAKNESS
[2018-06-07] MEDS: ELIQUIS 2.5 MG TABLET PO SCH ×2 (09:31→21:32)
[2018-06-07] MEDS: Protonix 40MG Tablet PO SCH ×2 (09:31→21:32)
[2018-06-07] MEDS: Zithromax 500 MG/ 250 ML NaCl Premix 500 MG/250 ML IVPB IV SCH (09:31)
[2018-06-07] MEDS: Tussionex Pennkinetic Susp PO PRN ×2 (09:31→22:40)
[2018-06-07] MEDS ORDERED: NON-FORMULARY ITEM (Fluticasone/Umeclidin/Vilanter [Trelegy Ellipta 100-62.5-25] 1 PUFF) IH SCH (10:00)
[2018-06-07] MEDS: ROCEPHIN 1 Gm-D5w 50 ml Bag** 1 G/50 ML IVPB IV SCH (21:32)
[2018-06-08] MEDS: DUONEB 0.5-3 MG/3 ml Neb IH SCH ×6 (03:13→22:47)
[2018-06-08 05:54] LABS: BASOPHIL % 0.1 % (0.0-0.4); Basophil (Absolute #) 0.01 (0-0.4); Eosinophil (Absolute #) 0 (0-0.5); Granulocytes % 95.4 % (36.0-66.0); Hematocrit 31.4 % (42-50); Hemoglobin 9.8 gm/dl (12.5-18.0); Lymphocyte (Absolute #) 0.42 (1.0-4.6); Lymphocytes % 2.5 % (24.0-44.0); Mean Corpuscular Hemoglobin 29.3 pg (26-32); Mean Corpuscular Hgb Concent. 31.2 g/dl (32-36); Mean Platelet Volume 8.4 fl (6-9.5); Monocyte (Absolute #) 0.34 (0.0-1.3); Platelet Count 203 K/mm3 (150-450); Red Blood Count 3.34 M/mm3 (4.1-5.6); Red Cell Distribution Width 13.7 % (11.5-14.0); White Blood Count 16.8 K/mm3 (4.0-10.5)
[2018-06-08 06:10] LABS: ANION GAP 11.2 MEQ/L (5-15); BLOOD UREA NITROGEN 18 mg/dL (9-20); CHLORIDE 110 mmol/L (98-107); Calcium 8.2 mg/dL (8.4-10.2); Carbon Dioxide 25 mmol/L (22-30); Creatinine 1 0.67 mg/dL (0.66-1.25); Glucose 237 mg/dL (74-106); SODIUM 142 mmol/L (137-145)
[2018-06-08] MEDS: solu-MEDROL 125 MG IV SCH ×4 (06:17→23:01)
[2018-06-08] MEDS: Advair Hfa 230/21 Mcg COMMON CANISTER IH SCH ×2 (07:08→18:52)
[2018-06-08] MEDS: NovoLOG Insulin SQ PRN ×4 (08:17→21:38)
--- NOTE | 2018-06-08 08:26 | PCM.NOTE ---
Date and Time: 06/08/18824 Subjective Assessment: patient reports some improvement in symptoms, no new problems or concerns. still with significant cough and wheezing Objective Exam General Appearance: no apparent distress, alert Skin Exam: normal color, warm, dry Respiratory Exam: rhonchi Cardiovascular Exam: regular rate/rhythm, normal heart sounds Gastrointestinal/Abdomen Exam: soft, No tenderness, No mass Extremity Exam: normal inspection, normal range of motion OBJECTIVE DATA Vital Signs: Vital Signs - 24 hr Temp Pulse Resp BP Pulse Ox 06/08/18 07:16 97.8 F 75 20 127/59 95 06/08/18 07:00 75 20 95 06/08/18 04:10 98.3 F 72 20 136/64 97 06/08/18 03:14 69 20 97 06/08/18 00:06 98.3 F 78 20 157/73 97 06/08/18 00:00 20 06/07/18 23:29 80 20 95 06/07/18 20:05 98.6 F 92 H 22 160/77 97 06/07/18 20:00 22 06/07/18 19:04 92 H 22 97 06/07/18 15:49 97.7 F 84 20 135/72 96 06/07/18 14:58 84 18 98 06/07/18 11:51 97.9 F 84 15 123/66 98 06/07/18 10:32 85 22 97 Oxygen-Last 24 hours O2 Percentage 5 Liters = 40% O2 Percentage 5 Liters = 40% O2 Percentage 5 Liters = 40% O2 Percentage 5 Liters = 40% O2 Percentage 5 Liters = 40% O2 Percentage 5 Liters = 40% Pain Assessment - Last Documented Pain Intensity 0 Pain Scale Used 0-10 Pain Scale Intake and Output: Intake & Output 06/05/18 06/06/18 06/07/18 06/08/18 11:59 11:59 11:59 11:59 Intake Total 498 4254 3000 Output Total 1200 2225 1400 Balance -702 2028 1600 Weight 61.5 kg 61.8 kg 64.2 kg Lab Results: Accuchecks Date 06/07/18 Time 19:00 Accucheck Value: 307 Accucheck Value: 218 Accucheck Value: 282 Lab Results-Last 24 Hours 06/08/18 06/08/18 Range/Units 05:30 05:30 WBC 16.8 H (4.0-10.5) K/mm3 RBC 3.34 L (4.1-5.6) M/mm3 Hgb 9.8 L (12.5-18.0) gm/dl Hct 31.4 L (42-50) % MCV 94.0 (78-100) fl MCH 29.3 (26-32) pg MCHC 31.2 L (32-36) g/dl RDW 13.7 (11.5-14.0) % Plt Count 203 (150-450) K/mm3 MPV 8.4 (6-9.5) fl Gran % 95.4 H (36.0-66.0) % Eos # (Auto) 0 (0-0.5) Absolute Lymphs (auto) 0.42 L (1.0-4.6) Absolute Monos (auto) 0.34 (0.0-1.3) Lymphocytes % 2.5 L (24.0-44.0) % Monocytes % 2.0 (0.0-12.0) % Eosinophils % 0.0 (0.00-5.0) % Basophils % 0.1 (0.0-0.4) % Absolute Granulocytes 16.07 H (1.4-6.9) Basophils # 0.01 (0-0.4) Sodium 142 (137-145) mmol/L Potassium 4.0 (3.5-5.1) mmol/L Chloride 110 H (98-107) mmol/L Carbon Dioxide 25 (22-30) mmol/L Anion Gap 11.2 (5-15) MEQ/L BUN 18 (9-20) mg/dL Creatinine 0.67 (0.66-1.25) mg/dL Estimated GFR > 60.0 ML/MIN Glucose 237 H (74-106) mg/dL Calcium 8.2 L (8.4-10.2) mg/dL Slides for Path Review Multi-Disciplinary Progress Notes: Multi-Disciplinary Progress Notes 06/07/18 10:15 (created 06/07/18 10:57) Case Management Note by Justa Moore DISCHARGE PLAN REVIEWED, CONTINUES TO PLAN FOR RETURN HOME TO PRE EPISODIC LEVEL OF [facility]. DENIES NEEDS FOR DISCHARGE AT PRESENT TIME. HAS HOME OXYGEN THAT HE WEARS 24/7 - 4L PER NC. REPORTS ALL EQUIP IN WORKING CONDITION. CHECKS HIS BLOOD SUGARS AC/HS. WILL CONTINUE TO FOLLOW FOR ALL DC NEEDS. Initialized on 06/07/18 10:57 - END OF NOTE Assessment/Plan (1) Acute exacerbation of chronic obstructive airways disease Current Visit: No Status: Acute Onset Date: ~01/29/18 Assessment & Plan: continue rocephin/zithromax, solu-medrol and nebs. shows some improvement. patient has endstage copd so near his baseline, hopefully will be ready to discharge in the next day or two. 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
[2018-06-08] MEDS: Protonix 40MG Tablet PO SCH ×2 (10:57→21:36)
[2018-06-08] MEDS: ELIQUIS 2.5 MG TABLET PO SCH ×2 (10:57→21:36)
[2018-06-08] MEDS: Zithromax 500 MG/ 250 ML NaCl Premix 500 MG/250 ML IVPB IV SCH (10:59)
[2018-06-08] MEDS: ROCEPHIN 1 Gm-D5w 50 ml Bag** 1 G/50 ML IVPB IV SCH (21:36)
[2018-06-08] MEDS: ABREVA TP PRN (21:38)
[2018-06-08] MEDS: xanAX 0.5 MG PO PRN (21:42)
[2018-06-08] MEDS: Sodium Chloride 0.9% 1000 ML 1,000 ML IV SCH (22:55)
[2018-06-09] MEDS: DUONEB 0.5-3 MG/3 ml Neb IH SCH ×6 (02:48→23:13)
[2018-06-09] MEDS: solu-MEDROL 125 MG IV SCH ×4 (05:21→23:56)
[2018-06-09 05:56] LABS: Hematocrit 30.7 % (42-50); Hemoglobin 9.7 gm/dl (12.5-18.0); Mean Cell Volume 93.6 fl (78-100); Mean Corpuscular Hgb Concent. 31.6 g/dl (32-36); Mean Platelet Volume 8.4 fl (6-9.5); Platelet Count 225 K/mm3 (150-450); Red Blood Count 3.28 M/mm3 (4.1-5.6); Red Cell Distribution Width 13.6 % (11.5-14.0); White Blood Count 14.4 K/mm3 (4.0-10.5)
[2018-06-09 06:12] LABS: ANION GAP 10.9 MEQ/L (5-15); BLOOD UREA NITROGEN 21 mg/dL (9-20); CHLORIDE 109 mmol/L (98-107); Calcium 8.3 mg/dL (8.4-10.2); Carbon Dioxide 27 mmol/L (22-30); Creatinine 1 0.71 mg/dL (0.66-1.25); Glucose 292 mg/dL (74-106); Mean Corpuscular Hemoglobin 29.5 pg (26-32); Potassium 3.8 mmol/L (3.5-5.1); SODIUM 143 mmol/L (137-145)
[2018-06-09] MEDS: Advair Hfa 230/21 Mcg COMMON CANISTER IH SCH ×2 (07:16→18:51)
[2018-06-09] MEDS: NovoLOG Insulin SQ PRN ×3 (07:57→21:31)
[2018-06-09 07:58] LABS: BAND 1 % (0.0-2.0); Lymphocytes 1 % (24-44); Monocyte 1 % (0.0-12.0); Neutrophils 97 % (36.-66.); Total Cells Counted 100
[2018-06-09 07:59] LABS: ANISOCYTOSIS 1+; Platelet Estimate NORMAL (NORMAL)
[2018-06-09] MEDS: xanAX 0.5 MG PO PRN ×3 (08:09→21:00)
[2018-06-09] MEDS ORDERED: PHARMACY DOSING REQUEST MC ONE (09:30)
[2018-06-09] MEDS ORDERED: AMINOPHYLLINE IV ONE (09:59)
[2018-06-09] MEDS ORDERED: D5W MINI IV ONE (09:59)
[2018-06-09] MEDS: ELIQUIS 2.5 MG TABLET PO SCH ×2 (10:25→20:59)
[2018-06-09] MEDS: Protonix 40MG Tablet PO SCH ×2 (10:25→20:59)
[2018-06-09] MEDS: Singulair 10 MG PO SCH (10:25)
[2018-06-09] MEDS: ABREVA TP PRN ×2 (10:30→20:21)
[2018-06-09] MEDS ORDERED: Aminophylline 500 MG/20 ML*** 500 MG in Dextrose 5%/Water IV Soln. 500 ML 480 ML IV SCH (11:30)
[2018-06-09] MEDS: Zithromax 500 MG/ 250 ML NaCl Premix 500 MG/250 ML IVPB IV SCH (11:58)
[2018-06-09] MEDS: Sodium Chloride 0.9% 1000 ML 1,000 ML IV SCH ×3 (19:38→20:59)
[2018-06-09] MEDS: Norco 10/325 MG Tablet PO PRN (20:59)
[2018-06-09] MEDS: ROCEPHIN 1 Gm-D5w 50 ml Bag** 1 G/50 ML IVPB IV SCH (20:59)
[2018-06-10] MEDS: DUONEB 0.5-3 MG/3 ml Neb IH SCH ×6 (02:59→22:55)
[2018-06-10] MEDS: Advair Hfa 230/21 Mcg COMMON CANISTER IH SCH ×2 (07:02→18:56)
[2018-06-10] MEDS: NovoLOG Insulin SQ PRN ×4 (08:10→21:35)
[2018-06-10] MEDS: Singulair 10 MG PO SCH (11:41)
[2018-06-10] MEDS: ELIQUIS 2.5 MG TABLET PO SCH ×2 (11:41→21:35)
[2018-06-10] MEDS: Protonix 40MG Tablet PO SCH ×2 (11:41→21:35)
[2018-06-10] MEDS: THEOPHYLLINE ER 24HR PO SCH (12:27)
[2018-06-10] MEDS: solu-MEDROL 125 MG IV SCH ×3 (13:14→23:04)
[2018-06-10] MEDS: Zithromax 500 MG/ 250 ML NaCl Premix 500 MG/250 ML IVPB IV SCH (13:15)
[2018-06-10] MEDS: ROCEPHIN 1 Gm-D5w 50 ml Bag** 1 G/50 ML IVPB IV SCH (21:34)
[2018-06-10] MEDS: xanAX 0.5 MG PO PRN (21:35)
[2018-06-10] MEDS: Norco 10/325 MG Tablet PO PRN (21:35)
[2018-06-11] MEDS: DUONEB 0.5-3 MG/3 ml Neb IH SCH ×6 (03:06→23:14)
[2018-06-11] MEDS: solu-MEDROL 125 MG IV SCH ×3 (05:29→18:58)
[2018-06-11] MEDS: Advair Hfa 230/21 Mcg COMMON CANISTER IH SCH ×2 (07:15→23:16)
[2018-06-11] MEDS: NovoLOG Insulin SQ PRN ×4 (08:09→21:41)
--- NOTE | 2018-06-11 08:11 | PCM.NOTE ---
Date and Time: 06/11/18 0809 Subjective Assessment: patient states he had a terrible night, cough is still deep and harsh, not producing much sputum. thinks he feels worse than he did when he arrived. Objective Exam General Appearance: no apparent distress, alert, thin Neurologic Exam: alert, oriented x 3 Skin Exam: normal color, warm, dry Respiratory Exam: crackles/rales, rhonchi Gastrointestinal/Abdomen Exam: soft, No tenderness, No mass Extremity Exam: normal inspection, normal range of motion OBJECTIVE DATA Vital Signs: Vital Signs - 24 hr Temp Pulse Resp BP Pulse Ox 06/11/18 07:26 97.9 F 85 20 145/89 97 06/11/18 07:05 78 18 98 06/11/18 04:00 97.9 F 85 20 145/89 97 06/11/18 03:09 87 18 96 06/11/18 00:00 98.0 F 85 19 182/83 98 06/10/18 23:00 82 20 96 06/10/18 20:00 20 06/10/18 19:53 97.9 F 86 20 178/97 98 06/10/18 19:03 111 H 18 98 06/10/18 16:00 98.5 F 99 H 22 139/68 94 L 06/10/18 15:09 86 20 97 06/10/18 12:00 98 F 96 H 22 136/83 97 06/10/18 10:26 87 18 97 Oxygen-Last 24 hours O2 Percentage 5 Liters = 40% O2 Percentage 5 Liters = 40% O2 Percentage 5 Liters = 40% O2 Percentage 5 Liters = 40% O2 Percentage 5 Liters = 40% Pain Assessment - Last Documented Pain Intensity 3 Pain Scale Used [facility] Intake and Output: Intake & Output 06/08/18 06/09/18 06/10/18 06/11/18 11:59 11:59 11:59 11:59 Intake Total 3360 3576 3221 1620 Output Total 1700 2600 1650 1600 Balance 1552 961 3829 20 Weight 64.2 kg 65 kg 64.5 kg 64.5 kg Lab Results: Accuchecks Date 06/10/18 Date 06/10/18 Date 06/10/18 Time 22:00 Time 16:30 Time 11:30 Accucheck Value: 237 Accucheck Value: 272 Accucheck Value: 262 Lab Results-Last 24 Hours 06/10/18 Range/Units 11:10 Theophylline 5.9 L (10-20) ug/mL Assessment/Plan (1) Acute exacerbation of chronic obstructive airways disease Current Visit: No Status: Acute Onset Date: ~01/29/18 Assessment & Plan: patient without significant wheezing on exam, will decrease solu medrol to 80mg IV q6 hrs. has harsh crackles/rales bilaterally. will change to IV zosyn, has had pseudomonas infections previously. will continue nebs and supportive care. 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
[2018-06-11] MEDS: Zosyn 3.375GM/100 Ml D5W 3.375 GM/100 ML IVPB IV SCH ×3 (08:38→18:58)
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
[2018-06-11 09:53] LABS: INR 1.04 (0.8-3.0); PROTIME 12.1 SECONDS (8.83-12.87)
[2018-06-11 09:56] LABS: PTT 22.6 SECONDS (24.1-36.1)
[2018-06-11] MEDS: Sodium Chloride 0.9% 1000 ML 1,000 ML IV SCH (10:02)
[2018-06-11] MEDS: ELIQUIS 2.5 MG TABLET PO SCH ×2 (10:02→21:41)
[2018-06-11] MEDS: Singulair 10 MG PO SCH (10:03)
[2018-06-11] MEDS: THEOPHYLLINE ER 24HR PO SCH (10:03)
[2018-06-11] MEDS: Protonix 40MG Tablet PO SCH ×2 (10:03→21:41)
--- NOTE | 2018-06-11 12:59 | XRAY ---
Indication: COPD exacerbation. Long-term IV access and therapy. Difficult venous access. Informed consent obtained. Patient was placed on the fluoroscopic table in a supine position. Initial sonographic imaging of the right upper extremity was performed for localization of patent veins. The right upper extremity was then prepped and draped in sterile fashion. Tourniquet applied. 1% lidocaine plain used for local anesthesia. Using ultrasound guidance and a micropuncture needle, a basilic vein above the elbow was successfully percutaneously cannulized. A floppy tip 0.018 guidewire inserted. Tourniquet released. Needle was exchanged for a 5 Khmer dilator peel-away sheath catheter. Ultimately a 5 Khmer double-lumen PICC line was inserted over a longer 0.018 guidewire with the tip positioned in the distal SVC using fluoroscopic guidance. Guidewire removed. Both ports flushed with heparinized saline. Catheter was secured. Postoperative instructions and orders given. Patient discharged in good condition. Impression: Technically successful right upper extremity PICC line placement using ultrasound and fluoroscopic guidance. No immediate complications. Approximately 3 cc blood loss. Approximately 0.4 minute of fluoroscopy used. Catheter length is 40 cm.
[2018-06-11] MEDS: xanAX 0.5 MG PO PRN ×2 (16:08→21:41)
[2018-06-11] MEDS: Norco 10/325 MG Tablet PO PRN (21:40)
[2018-06-12] MEDS: Zosyn 3.375GM/100 Ml D5W 3.375 GM/100 ML IVPB IV SCH ×5 (00:31→23:29)
[2018-06-12] MEDS: solu-MEDROL 125 MG IV SCH ×5 (00:32→23:28)
[2018-06-12] MEDS: Tussionex Pennkinetic Susp PO PRN (00:48)
[2018-06-12] MEDS: DUONEB 0.5-3 MG/3 ml Neb IH SCH ×6 (05:38→23:20)
[2018-06-12] MEDS: Advair Hfa 230/21 Mcg COMMON CANISTER IH SCH ×2 (07:17→20:02)
[2018-06-12] MEDS: NovoLOG Insulin SQ PRN ×4 (08:24→23:20)
[2018-06-12] MEDS: ELIQUIS 2.5 MG TABLET PO SCH ×2 (09:43→23:19)
[2018-06-12] MEDS: Singulair 10 MG PO SCH (09:43)
[2018-06-12] MEDS: Protonix 40MG Tablet PO SCH ×2 (09:43→23:20)
[2018-06-12] MEDS: THEOPHYLLINE ER 24HR PO SCH (09:44)
--- NOTE | 2018-06-12 11:57 | PCM.NOTE ---
Date and Time: 06/12/18 1153 Subjective Assessment: breathing seems slightly improved but has pain in the mouth and around the lips , no other new complaints. patient insists he wants to return home at time of discharge so wants to work on getting up and moving more at this time prior to discharge. Objective Exam General Appearance: no apparent distress, alert Skin Exam: normal color, warm, dry Ears, Nose, Throat Exam: other (oropharynx with ulcerative lesion on hard palate , white adherent material and blistering around the lips) Respiratory Exam: crackles/rales, rhonchi Cardiovascular Exam: regular rate/rhythm, normal heart sounds Gastrointestinal/Abdomen Exam: soft, No tenderness, No mass Extremity Exam: normal inspection, normal range of motion OBJECTIVE DATA Vital Signs: Vital Signs - 24 hr Temp Pulse Resp BP Pulse Ox 06/12/18 11:15 84 20 95 06/12/18 08:00 22 06/12/18 07:21 98.5 F 88 22 168/80 95 06/12/18 07:20 80 20 97 06/12/18 04:00 97.6 F 66 22 141/70 98 06/12/18 00:00 97.9 F 76 20 145/80 96 06/11/18 23:49 69 18 95 06/11/18 20:00 98.3 F 91 H 21 175/82 95 06/11/18 17:27 78 18 96 06/11/18 16:00 97.5 F 86 18 193/87 93 L 06/11/18 12:00 98.7 F 96 H 22 158/85 95 Oxygen-Last 24 hours O2 Percentage 5 Liters = 40% O2 Percentage 5 Liters = 40% O2 Percentage 5 Liters = 40% O2 Percentage 5 Liters = 40% O2 Percentage 5 Liters = 40% O2 Percentage 5 Liters = 40% Pain Assessment - Last Documented Pain Intensity 0 Pain Scale Used 0-10 Pain Scale Intake and Output: Intake & Output 06/09/18 06/10/18 06/11/18 06/12/18 11:59 11:59 11:59 11:59 Intake Total 3576 3221 1860 1554 Output Total 2600 1650 2300 1250 Balance 976 1571 -440 304 Weight 65 kg 64.5 kg 64.5 kg 64.8 kg Lab Results: Accuchecks Date 06/12/18 Date 06/11/18 Date 06/11/18 Time 07:30 Time 21:00 Time 16:30 Accucheck Value: 222 Accucheck Value: 310 Accucheck Value: 167 Radiology Exams: Radiology Procedures Category Date Time Status GUIDANCE FOR NEEDLE PLACEMENT [US] Routine Exams 06/11/18 12:20 Completed PICC LINE PLACEMENT Routine Exams 06/11/18 12:18 Completed Multi-Disciplinary Progress Notes: Multi-Disciplinary Progress Notes 06/11/18 12:41 Nutrition Note by Cheryl Huitron F/u note: Regular diet con't with 50-100% po intake. weight on adm 64.2 kg/ current weight 64.5 kg - stable. Labs 06/09 = BUN 21, glu 292, hgb 9.7, hct 30.7. Goals not met and ongoing. Con't to recommend NCS diet. Will con't to monitor and f/u prn. [email or web address] Huitron Initialized on 06/11/18 12:41 - END OF NOTE Assessment/Plan (1) Acute exacerbation of chronic obstructive airways disease Current Visit: No Status: Acute Onset Date: ~01/29/18 Assessment & Plan: improving since antibiotics changed to zosyn, will continue nebs and wean solu medrol to 60mg IV q6 hrs at this time. hopefully will continue to improve and will be able to discharge in the next couple of days. Code(s): J44.1 - CHRONIC OBSTRUCTIVE PULMONARY DISEASE W (ACUTE) EXACERBATION (2) Black lung Current Visit: No Status: Chronic Code(s): J60 - COALWORKER'S PNEUMOCONIOSIS (3) Chronic hypoxemic respiratory failure Current Visit: No Status: Chronic (4) Hx pulmonary embolism Current Visit: No Status: Chronic Code(s): Z86.711 - PERSONAL HISTORY OF PULMONARY EMBOLISM (5) Protein calorie malnutrition Current Visit: No Status: Chronic Code(s): E46 - UNSPECIFIED PROTEIN- CALORIE MALNUTRITION (6) Weakness Current Visit: No Status: Chronic Onset Date: ~10/12/17 Code(s): R53.1 - WEAKNESS (7) Thrush, oral Current Visit: Yes Status: Acute Assessment & Plan: delbert's magic mouthwash ordered Code(s): B37.0 - CANDIDAL STOMATITIS
[2018-06-12] MEDS: MARY'S MOUTHWASH PO SCH ×3 (13:35→23:20)
[2018-06-12] MEDS: xanAX 0.5 MG PO PRN ×2 (14:59→23:19)
[2018-06-12] MEDS: Sodium Chloride 0.9% 1000 ML 1,000 ML IV SCH (15:42)
[2018-06-12] MEDS: Norco 10/325 MG Tablet PO PRN (23:19)
[2018-06-13] MEDS: DUONEB 0.5-3 MG/3 ml Neb IH SCH ×6 (02:41→23:23)
[2018-06-13] MEDS: solu-MEDROL 125 MG IV SCH (05:12)
[2018-06-13] MEDS: Zosyn 3.375GM/100 Ml D5W 3.375 GM/100 ML IVPB IV SCH ×4 (05:13→23:42)
[2018-06-13 06:28] LABS: Hematocrit 33.3 % (42-50); Hemoglobin 10.3 gm/dl (12.5-18.0); Mean Cell Volume 94.3 fl (78-100); Mean Corpuscular Hgb Concent. 30.9 g/dl (32-36); Mean Platelet Volume 8.3 fl (6-9.5); Platelet Count 249 K/mm3 (150-450); Red Blood Count 3.53 M/mm3 (4.1-5.6); Red Cell Distribution Width 13.1 % (11.5-14.0); White Blood Count 14.9 K/mm3 (4.0-10.5)
[2018-06-13 06:40] LABS: Mean Corpuscular Hemoglobin 29.1 pg (26-32)
[2018-06-13] MEDS: Advair Hfa 230/21 Mcg COMMON CANISTER IH SCH ×2 (07:01→19:34)
[2018-06-13 07:10] LABS: ALBUMIN 2.7 g/dL (3.5-5.0); ALKALINE PHOSPHATASE 44 U/L (38-126); ANION GAP 14.8 MEQ/L (5-15); BLOOD UREA NITROGEN 20 mg/dL (9-20); CHLORIDE 97 mmol/L (98-107); Calcium 7.6 mg/dL (8.4-10.2); Carbon Dioxide 30 mmol/L (22-30); Creatinine 1 0.79 mg/dL (0.66-1.25); Potassium 4.4 mmol/L (3.5-5.1); SGOT/AST 17 U/L (17-59); SGPT/ALT 33 U/L (0-50); SODIUM 137 mmol/L (137-145); Total Protein 5.2 g/dL (6.3-8.2)
[2018-06-13 07:20] LABS: Glucose 507 mg/dL (74-106)
[2018-06-13] MEDS ORDERED: NovoLOG Insulin SQ ONE (07:40)
--- NOTE | 2018-06-13 08:28 | PCM.NOTE ---
Date and Time: 06/13/18823 Subjective Assessment: patient c/o headache and feels poorly, no energy and very little tolerance of activity. blood sugar over 500 this morning Objective Exam General Appearance: no apparent distress, alert Skin Exam: normal color, warm, dry Respiratory Exam: prolonged expirations, rhonchi Cardiovascular Exam: regular rate/rhythm, normal heart sounds Gastrointestinal/Abdomen Exam: soft, No tenderness, No mass Extremity Exam: normal inspection, normal range of motion OBJECTIVE DATA Vital Signs: Vital Signs - 24 hr Temp Pulse Resp BP Pulse Ox 06/13/18 08:00 98.1 F 93 H 20 151/82 95 06/13/18 07:04 99 H 20 93 L 06/13/18 04:05 98.1 F 77 20 132/73 97 06/13/18 04:00 21 06/13/18 02:45 94 H 21 96 06/13/18 00:05 97.8 F 89 20 132/81 97 06/12/18 23:52 20 06/12/18 23:37 89 20 97 06/12/18 22:43 95 06/12/18 22:41 96 H 18 95 06/12/18 20:17 98.5 F 84 20 134/76 95 06/12/18 20:00 18 06/12/18 16:40 98 F 86 18 140/63 92 L 06/12/18 16:00 20 06/12/18 14:48 82 20 93 L 06/12/18 12:38 97.8 F 78 20 126/77 93 L 06/12/18 12:00 20 06/12/18 11:15 84 20 95 Oxygen-Last 24 hours O2 Percentage 5 Liters = 40% O2 Percentage 5 Liters = 40% O2 Percentage 5 Liters = 40% O2 Percentage 5 Liters = 40% O2 Percentage 5 Liters = 40% O2 Percentage 5 Liters = 40% Pain Assessment - Last Documented Pain Intensity 3 Pain Scale Used 0-10 Pain Scale,FLACC Intake and Output: Intake & Output 06/10/18 06/11/18 06/12/18 06/13/18 11:59 11:59 11:59 11:59 Intake Total 3221 1860 1554 2743 Output Total 1650 2300 1250 1550 Balance 1571 -361 247 3846 Weight 64.5 kg 64.5 kg 64.8 kg 66.5 kg Lab Results: Accuchecks Date 06/12/18 Date 06/12/18 Date 06/12/18 Time 22:00 Time 16:30 Time 11:30 Accucheck Value: 321 Accucheck Value: 376 Accucheck Value: 316 Lab Results-Last 24 Hours 06/13/18 06/13/18 Range/Units 05:58 05:58 WBC 14.9 H (4.0-10.5) K/mm3 RBC 3.53 L (4.1-5.6) M/mm3 Hgb 10.3 L (12.5-18.0) gm/dl Hct 33.3 L (42-50) % MCV 94.3 (78-100) fl MCH 29.1 (26-32) pg MCHC 30.9 L (32-36) g/dl RDW 13.1 (11.5-14.0) % Plt Count 249 (150-450) K/mm3 MPV 8.3 (6-9.5) fl Sodium 137 (137-145) mmol/L Potassium 4.4 (3.5-5.1) mmol/L Chloride 97 L (98-107) mmol/L Carbon Dioxide 30 (22-30) mmol/L Anion Gap 14.8 (5-15) MEQ/L BUN 20 (9-20) mg/dL Creatinine 0.79 (0.66-1.25) mg/dL Estimated GFR > 60.0 ML/MIN Glucose 507 H* (74-106) mg/dL Calcium 7.6 L (8.4-10.2) mg/dL Total Bilirubin 0.40 (0.2-1.3) mg/dL AST 17 (17-59) U/L ALT 33 (0-50) U/L Alkaline Phosphatase 44 (38-126) U/L Serum Total Protein 5.2 L (6.3-8.2) g/dL Albumin 2.7 L (3.5-5.0) g/dL Radiology Exams: Radiology Procedures Category Date Time Status GUIDANCE FOR NEEDLE PLACEMENT [US] Routine Exams 06/11/18 12:20 Completed PICC LINE PLACEMENT Routine Exams 06/11/18 12:18 Completed Assessment/Plan (1) Acute exacerbation of chronic obstructive airways disease Current Visit: No Status: Acute Onset Date: ~01/29/18 Assessment & Plan: change to po prednisone from IV solu medrol, continue zosyn and nebs. hopeful will be ready to discharge tomorrow. discussed discharge planning with patient, he declines referral to ECF at this time. discussed home health vs hospice as well Code(s): J44.1 - CHRONIC OBSTRUCTIVE PULMONARY DISEASE W (ACUTE) EXACERBATION (2) Black lung Current Visit: No Status: Chronic Code(s): J60 - COALWORKER'S PNEUMOCONIOSIS (3) Chronic hypoxemic respiratory failure Current Visit: No Status: Chronic (4) Hx pulmonary embolism Current Visit: No Status: Chronic Code(s): Z86.711 - PERSONAL HISTORY OF PULMONARY EMBOLISM (5) Protein calorie malnutrition Current Visit: No Status: Chronic Code(s): E46 - UNSPECIFIED PROTEIN- CALORIE MALNUTRITION (6) Weakness Current Visit: No Status: Chronic Onset Date: ~10/12/17 Code(s): R53.1 - WEAKNESS (7) Thrush, oral Current Visit: Yes Status: Acute Code(s): B37.0 - CANDIDAL STOMATITIS
[2018-06-13] MEDS: MARY'S MOUTHWASH PO SCH ×4 (10:34→23:02)
[2018-06-13] MEDS: ELIQUIS 2.5 MG TABLET PO SCH ×2 (10:34→23:00)
[2018-06-13] MEDS: Protonix 40MG Tablet PO SCH ×2 (10:34→23:00)
[2018-06-13] MEDS: Singulair 10 MG PO SCH (10:34)
[2018-06-13] MEDS: DELTASONE 20 MG PO SCH ×2 (10:34→23:00)
[2018-06-13] MEDS: THEOPHYLLINE ER 24HR PO SCH (10:37)
[2018-06-13 12:11] LABS: Lymphocytes 7 % (24-44); Neutrophils 93 % (36.-66.); Platelet Estimate NORMAL (NORMAL); Total Cells Counted 100
[2018-06-13] MEDS: NovoLOG Insulin SQ PRN ×3 (12:55→23:06)
[2018-06-13] MEDS: Norco 10/325 MG Tablet PO PRN (23:01)
[2018-06-13] MEDS: xanAX 0.5 MG PO PRN (23:01)
[2018-06-14] MEDS: DUONEB 0.5-3 MG/3 ml Neb IH SCH ×5 (03:52→19:04)
[2018-06-14] MEDS: Zosyn 3.375GM/100 Ml D5W 3.375 GM/100 ML IVPB IV SCH ×4 (05:56→23:25)
[2018-06-14 06:19] LABS: Hemoglobin 11.2 gm/dl (12.5-18.0); Mean Cell Volume 94.1 fl (78-100); Mean Corpuscular Hemoglobin 30.1 pg (26-32); Platelet Count 250 K/mm3 (150-450); Red Blood Count 3.72 M/mm3 (4.1-5.6); Red Cell Distribution Width 13.5 % (11.5-14.0); White Blood Count 13.7 K/mm3 (4.0-10.5)
[2018-06-14 06:52] LABS: BLOOD UREA NITROGEN 21 mg/dL (9-20); CHLORIDE 101 mmol/L (98-107); Calcium 8.2 mg/dL (8.4-10.2); Carbon Dioxide 33 mmol/L (22-30); Creatinine 1 0.83 mg/dL (0.66-1.25); Glucose 248 mg/dL (74-106); Potassium 4.4 mmol/L (3.5-5.1); SODIUM 137 mmol/L (137-145)
[2018-06-14] MEDS: Advair Hfa 230/21 Mcg COMMON CANISTER IH SCH ×2 (06:52→19:03)
[2018-06-14 06:54] LABS: ANION GAP 7.4 MEQ/L (5-15)
[2018-06-14 07:09] LABS: Lymphocytes 13 % (24-44); Neutrophils 87 % (36.-66.); Platelet Estimate NORMAL (NORMAL); Total Cells Counted 100; Toxic Granulation 2+
--- NOTE | 2018-06-14 08:00 | PCM.NOTE ---
Date and Time: 06/14/18 0758 Subjective Assessment: patient still very weak, breathing has improved some. hasn't been up much in the last couple of days Objective Exam General Appearance: cachetic, thin Neurologic Exam: alert Skin Exam: normal color, warm, dry Respiratory Exam: rhonchi Cardiovascular Exam: regular rate/rhythm, normal heart sounds Gastrointestinal/Abdomen Exam: soft, No tenderness, No mass OBJECTIVE DATA Vital Signs: Vital Signs - 24 hr Temp Pulse Resp BP Pulse Ox 06/14/18 07:25 97.3 F 73 20 141/83 93 L 06/14/18 06:55 82 20 93 L 06/14/18 04:00 97.8 F 84 20 183/87 95 06/14/18 03:52 80 18 95 06/14/18 00:00 97.9 F 74 19 178/87 94 L 06/13/18 23:23 93 H 21 94 L 06/13/18 20:00 98.4 F 95 H 20 167/91 93 L 06/13/18 19:48 22 06/13/18 19:29 85 22 94 L 06/13/18 16:00 98.3 F 100 H 22 162/91 95 06/13/18 14:47 95 H 20 93 L 06/13/18 12:00 98 F 87 22 153/73 97 06/13/18 11:09 79 18 95 06/13/18 08:00 98.1 F 93 H 20 151/82 95 Oxygen-Last 24 hours O2 Percentage 5 Liters = 40% O2 Percentage 5 Liters = 40% O2 Percentage 5 Liters = 40% O2 Percentage 5 Liters = 40% O2 Percentage 5 Liters = 40% O2 Percentage 5 Liters = 40% O2 Percentage 5 Liters = 40% Pain Assessment - Last Documented Pain Intensity 3 Pain Scale Used 0-10 Pain Scale,FLACC Intake and Output: Intake & Output 06/11/18 06/12/18 06/13/18 06/14/18 11:59 11:59 11:59 11:59 Intake Total 1860 1554 2743 1760 Output Total 2300 1250 1550 1925 Balance -050 144 4201 -165 Weight 64.5 kg 64.8 kg 66.5 kg 69.9 kg Lab Results: Accuchecks Date 06/14/18 Date 06/13/18 Date 06/13/18 Date 06/13/18 Time 22:00 Time 16:30 Time 11:30 Time 08:00 Accucheck Value: 211 Accucheck Value: 310 Accucheck Value: 205 Accucheck Value: 267 Lab Results-Last 24 Hours 06/13/18 06/14/18 06/14/18 Range/Units 05:58 06:00 06:05 WBC 13.7 H (4.0-10.5) K/mm3 RBC 3.72 L (4.1-5.6) M/mm3 Hgb 11.2 L (12.5-18.0) gm/dl Hct 35.0 L (42-50) % MCV 94.1 (78-100) fl MCH 30.1 (26-32) pg MCHC 32.0 (32-36) g/dl RDW 13.5 (11.5-14.0) % Plt Count 250 (150-450) K/mm3 MPV 8.0 (6-9.5) fl Segmented Neutrophils 93 H 87 H (36.-66.) % Lymphocytes (Manual) 7 L 13 L (24-44) % Toxic Granulation 2+ Platelet Estimate NORMAL NORMAL (NORMAL) RBC Morphology NORMAL NORMAL Sodium 137 (137-145) mmol/L Potassium 4.4 (3.5-5.1) mmol/L Chloride 101 (98-107) mmol/L Carbon Dioxide 33 H (22-30) mmol/L Anion Gap 7.4 (5-15) MEQ/L BUN 21 H (9-20) mg/dL Creatinine 0.83 (0.66-1.25) mg/dL Estimated GFR > 60.0 ML/MIN Glucose 248 H (74-106) mg/dL Calcium 8.2 L (8.4-10.2) mg/dL Assessment/Plan (1) Acute exacerbation of chronic obstructive airways disease Current Visit: No Status: Acute Onset Date: ~01/29/18 Assessment & Plan: on po prednisone now, IV fluids stopped due to swelling. needs to ambulate, continue IV zosyn. patient still refusing ECF/rehab stay. will be discharged tomorrow so will push movement today Code(s): J44.1 - CHRONIC OBSTRUCTIVE PULMONARY DISEASE W (ACUTE) EXACERBATION (2) Black lung Current Visit: No Status: Chronic Code(s): J60 - COALWORKER'S PNEUMOCONIOSIS (3) Chronic hypoxemic respiratory failure Current Visit: No Status: Chronic (4) Hx pulmonary embolism Current Visit: No Status: Chronic Code(s): Z86.711 - PERSONAL HISTORY OF PULMONARY EMBOLISM (5) Protein calorie malnutrition Current Visit: No Status: Chronic Code(s): E46 - UNSPECIFIED PROTEIN- CALORIE MALNUTRITION (6) Weakness Current Visit: No Status: Chronic Onset Date: ~10/12/17 Code(s): R53.1 - WEAKNESS (7) Thrush, oral Current Visit: Yes Status: Acute Code(s): B37.0 - CANDIDAL STOMATITIS
[2018-06-14] MEDS: NovoLOG Insulin SQ PRN ×4 (08:07→23:34)
[2018-06-14] MEDS: MARY'S MOUTHWASH PO SCH ×4 (09:21→23:33)
[2018-06-14] MEDS: ELIQUIS 2.5 MG TABLET PO SCH ×2 (09:21→23:25)
[2018-06-14] MEDS: DELTASONE 20 MG PO SCH ×2 (09:21→23:26)
[2018-06-14] MEDS: THEOPHYLLINE ER 24HR PO SCH (09:21)
[2018-06-14] MEDS: Singulair 10 MG PO SCH (09:21)
[2018-06-14] MEDS: Protonix 40MG Tablet PO SCH ×2 (09:21→23:26)
[2018-06-14] MEDS: xanAX 0.5 MG PO PRN ×2 (11:18→23:26)
[2018-06-14] MEDS: Norco 10/325 MG Tablet PO PRN (23:33)
[2018-06-15] MEDS: DUONEB 0.5-3 MG/3 ml Neb IH SCH ×7 (03:32→23:09)
[2018-06-15] MEDS: Zosyn 3.375GM/100 Ml D5W 3.375 GM/100 ML IVPB IV SCH ×4 (05:56→22:55)
[2018-06-15] MEDS: Advair Hfa 230/21 Mcg COMMON CANISTER IH SCH ×2 (06:59→19:36)
--- NOTE | 2018-06-15 08:36 | PCM.NOTE ---
Date and Time: 06/15/18830 Subjective Assessment: patient continues to improve, his breathing is nearing his baseline. he was able to ambulate yesterday better than he had. Objective Exam General Appearance: cachetic, thin Neurologic Exam: alert, oriented x 3 Skin Exam: normal color, dry Respiratory Exam: prolonged expirations, rhonchi Cardiovascular Exam: regular rate/rhythm, normal heart sounds Gastrointestinal/Abdomen Exam: soft, No tenderness, No mass Extremity Exam: normal inspection, normal range of motion OBJECTIVE DATA Vital Signs: Vital Signs - 24 hr Temp Pulse Resp BP Pulse Ox 06/15/18 07:44 22 06/15/18 07:33 98.2 F 86 20 161/88 98 06/15/18 07:01 85 22 95 06/15/18 04:00 98.8 F 83 21 142/88 99 06/15/18 03:33 88 20 96 06/15/18 00:00 98.5 F 85 20 148/99 97 06/14/18 23:45 102 H 22 98 06/14/18 20:00 98.5 F 84 20 156/86 98 06/14/18 19:04 102 H 22 95 06/14/18 16:00 98.2 F 100 H 22 132/63 96 06/14/18 14:28 98 H 22 96 06/14/18 12:00 98.2 F 100 H 24 139/78 97 06/14/18 10:21 97 H 18 97 Oxygen-Last 24 hours O2 Percentage 5 Liters = 40% O2 Percentage 4 Liters = 36% O2 Percentage 5 Liters = 40% O2 Percentage 5 Liters = 40% O2 Percentage 5 Liters = 40% O2 Percentage 5 Liters = 40% Pain Assessment - Last Documented Pain Intensity 2 Pain Scale Used 0-10 Pain Scale,FLACC Intake and Output: Intake & Output 06/12/18 06/13/18 06/14/18 06/15/18 11:59 11:59 11:59 11:59 Intake Total 1554 2743 1760 1400 Output Total 1250 1550 1925 2800 Balance 304 4523 165 1400 Weight 64.8 kg 66.5 kg 69.9 kg 63.3 kg Lab Results: Accuchecks Date 06/15/18 Date 06/15/18 Date 06/14/18 Date 01/03/19 Time 07:42 Time 22:00 Time 16:30 Time 11:30 Accucheck Value: 188 Accucheck Value: 311 Accucheck Value: 226 Accucheck Value: 263 Multi-Disciplinary Progress Notes: Multi-Disciplinary Progress Notes 06/14/18 09:55 (created 06/14/18 15:08) Case Management Note by Justa Moore REVIEWED DISCHARGE PLAN, PT IS ADAMANT THAT HE WILL GO HOME ON DISCHARGE. CONTINUES TO DENY THE NEED FOR HHC OR HOSPICE SERVICES. HAS ALL NECESSARY EQUIP AT HOME, REPORTS THAT IT IS ALL IN WORKING CONDITION. REFUSES TO CONSIDER REHAB STAY. REPORTS THAT HIS FAMILY WILL PROVIDE TRANSPORTATION HOME ON DISCHARGE. WILL CONTINUE TO FOLLOW FOR ALL DC NEEDS. Initialized on 06/14/18 15:08 - END OF NOTE Assessment/Plan (1) Acute exacerbation of chronic obstructive airways disease Current Visit: No Status: Acute Onset Date: ~01/29/18 Assessment & Plan: continue zosyn, was switched to oral prednisone. should be able to discharge with prednisone taper tomorrow, will not need any more antibiotics following discharge. Code(s): J44.1 - CHRONIC OBSTRUCTIVE PULMONARY DISEASE W (ACUTE) EXACERBATION (2) Black lung Current Visit: No Status: Chronic Code(s): J60 - COALWORKER'S PNEUMOCONIOSIS (3) Chronic hypoxemic respiratory failure Current Visit: No Status: Chronic Assessment & Plan: patient has end-stage copd, is SCO and understands he has a poor prognosis, he has been on hospice care and in ECF in the past and in spite of multiple conversations he is insistent to return to his own home without any services, has a granddaughter who lives with him and helps care for him. (4) Hx pulmonary embolism Current Visit: No Status: Chronic Code(s): Z86.711 - PERSONAL HISTORY OF PULMONARY EMBOLISM (5) Protein calorie malnutrition Current Visit: No Status: Chronic Code(s): E46 - UNSPECIFIED PROTEIN- CALORIE MALNUTRITION (6) Weakness Current Visit: No Status: Chronic Onset Date: ~10/12/17 Code(s): R53.1 - WEAKNESS (7) Thrush, oral Current Visit: Yes Status: Acute Code(s): B37.0 - CANDIDAL STOMATITIS
[2018-06-15] MEDS: ELIQUIS 2.5 MG TABLET PO SCH ×2 (09:50→22:56)
[2018-06-15] MEDS: DELTASONE 20 MG PO SCH ×2 (09:50→22:56)
[2018-06-15] MEDS: Protonix 40MG Tablet PO SCH ×2 (09:50→22:56)
[2018-06-15] MEDS: MARY'S MOUTHWASH PO SCH ×4 (09:50→22:57)
[2018-06-15] MEDS: Singulair 10 MG PO SCH (09:50)
[2018-06-15] MEDS: xanAX 0.5 MG PO PRN ×3 (09:50→22:56)
[2018-06-15] MEDS: THEOPHYLLINE ER 24HR PO SCH (09:50)
[2018-06-15] MEDS: NovoLOG Insulin SQ PRN ×3 (12:16→22:56)
[2018-06-15] MEDS ORDERED: Zestril 10 MG PO STA (22:20)
[2018-06-15] MEDS: Norco 10/325 MG Tablet PO PRN (22:56)
[2018-06-16] MEDS: DUONEB 0.5-3 MG/3 ml Neb IH SCH ×6 (03:18→23:05)
[2018-06-16 05:53] LABS: BASOPHIL % 0.1 % (0.0-0.4); Basophil (Absolute #) 0.01 (0-0.4); Eosinophil % 0.1 % (0.00-5.0); Eosinophil (Absolute #) 0.01 (0-0.5); Granulocytes % 84.2 % (36.0-66.0); Hemoglobin 10.9 gm/dl (12.5-18.0); Lymphocyte (Absolute #) 1.25 (1.0-4.6); Lymphocytes % 9.5 % (24.0-44.0); Mean Cell Volume 95.4 fl (78-100); Mean Corpuscular Hemoglobin 29.7 pg (26-32); Mean Corpuscular Hgb Concent. 31.1 g/dl (32-36); Mean Platelet Volume 8.2 fl (6-9.5); Monocytes % 6.1 % (0.0-12.0); Platelet Count 253 K/mm3 (150-450); Red Blood Count 3.67 M/mm3 (4.1-5.6); Red Cell Distribution Width 13.7 % (11.5-14.0); White Blood Count 13.1 K/mm3 (4.0-10.5)
[2018-06-16] MEDS: Zosyn 3.375GM/100 Ml D5W 3.375 GM/100 ML IVPB IV SCH ×5 (06:42→23:37)
[2018-06-16 06:46] LABS: ANION GAP 7.2 MEQ/L (5-15); BLOOD UREA NITROGEN 18 mg/dL (9-20); CHLORIDE 100 mmol/L (98-107); Calcium 8.2 mg/dL (8.4-10.2); Carbon Dioxide 35 mmol/L (22-30); Creatinine 1 0.93 mg/dL (0.66-1.25); Glucose 214 mg/dL (74-106); Potassium 4.8 mmol/L (3.5-5.1); SODIUM 137 mmol/L (137-145)
[2018-06-16] MEDS: Advair Hfa 230/21 Mcg COMMON CANISTER IH SCH ×2 (07:26→23:03)
[2018-06-16 07:37] LABS: Lymphocytes 22 % (24-44); Monocyte 5 % (0.0-12.0); Neutrophils 73 % (36.-66.); Platelet Estimate NORMAL (NORMAL); Total Cells Counted 100
[2018-06-16] MEDS: NovoLOG Insulin SQ PRN ×3 (08:01→22:07)
--- NOTE | 2018-06-16 08:12 | PCM.NOTE ---
Date and Time: 06/16/18806 Subjective Assessment: Patient reports that he continues to have a cough and generalized weakness. He reports trouble ambulating on his own at this time. He reports mouth pain from thrush. - Review of Systems Constitutional: Fatigue Eyes: No Symptoms Ears, Nose, & Throat: Mouth Pain Respiratory: Cough, Short Of Breath, Wheezing Cardiac: No Symptoms Abdominal/Gastrointestinal: No Symptoms Genitourinary Symptoms: No Symptoms Musculoskeletal: No Symptoms Skin: Other (skin is thin with old skin tears; pt reports his skin was weaping fluid earlier during his hospital stay.) Objective Exam General Appearance: no apparent distress, other (frail looking) Neurologic Exam: alert, cooperative, normal mood/affect Skin Exam: normal color, warm, other (multiple healing skin lesions on his forearms bilat) Respiratory Exam: airway intact, other (distant breath sounds, few scattered wheezes), No accessory muscle use, No crackles/rales Cardiovascular Exam: regular rate/rhythm, normal heart sounds, No murmur, No friction rub, No gallop Gastrointestinal/Abdomen Exam: soft, normal bowel sounds, No tenderness, No distention, No mass Extremity Exam: other (no c/c/e) OBJECTIVE DATA Vital Signs: Vital Signs - 24 hr Temp Pulse Resp BP Pulse Ox 06/16/18 07:38 98 F 88 20 147/74 97 06/16/18 07:27 91 H 20 97 06/16/18 04:00 98.6 F 88 20 122/77 93 L 06/16/18 03:19 88 20 93 L 06/16/18 00:00 21 06/15/18 23:56 97.7 F 86 21 145/81 97 06/15/18 23:10 81 20 92 L 06/15/18 20:00 97.9 F 96 H 20 179/107 99 06/15/18 19:29 96 H 20 96 06/15/18 16:00 98.3 F 96 H 20 148/68 97 06/15/18 14:43 93 H 20 98 06/15/18 12:00 98.2 F 89 20 135/86 97 06/15/18 11:53 16 06/15/18 10:51 95 H 20 93 L Oxygen-Last 24 hours O2 Percentage 5 Liters = 40% O2 Percentage 5 Liters = 40% O2 Percentage 5 Liters = 40% O2 Percentage 5 Liters = 40% O2 Percentage 5 Liters = 40% O2 Percentage 5 Liters = 40% Oxygen Flowrate (L/min)-RT 5 Pain Assessment - Last Documented Pain Intensity 4 Pain Scale Used 0-10 Pain Scale Intake and Output: Intake & Output 06/14/18 06/15/18 06/16/18 06/17/18 06:59 06:59 06:59 06:59 Intake Total 1760 1400 960 Output Total 1625 2800 2320 250 Balance 135 -1400 -1360 -250 Weight 69.9 kg 63.3 kg 63.7 kg Lab Results: Accuchecks Date 06/15/18 Date 06/15/18 Date 06/15/18 Time 22:00 Time 17:03 Time 11:52 Accucheck Value: 279 Accucheck Value: 256 Accucheck Value: 335 Lab Results-Last 24 Hours 06/16/18 06/16/18 Range/Units 05:20 05:20 WBC 13.1 H (4.0-10.5) K/mm3 RBC 3.67 L (4.1-5.6) M/mm3 Hgb 10.9 L (12.5-18.0) gm/dl Hct 35.0 L (42-50) % MCV 95.4 (78-100) fl MCH 29.7 (26-32) pg MCHC 31.1 L (32-36) g/dl RDW 13.7 (11.5-14.0) % Plt Count 253 (150-450) K/mm3 MPV 8.2 (6-9.5) fl Gran % 84.2 H (36.0-66.0) % Eos # (Auto) 0.01 (0-0.5) Absolute Lymphs (auto) 1.25 (1.0-4.6) Absolute Monos (auto) 0.80 (0.0-1.3) Lymphocytes % 9.5 L (24.0-44.0) % Monocytes % 6.1 (0.0-12.0) % Eosinophils % 0.1 (0.00-5.0) % Basophils % 0.1 (0.0-0.4) % Absolute Granulocytes 11.07 H (1.4-6.9) Segmented Neutrophils 73 H (36.-66.) % Lymphocytes (Manual) 22 L (24-44) % Monocytes (Manual) 5 (0.0-12.0) % Basophils # 0.01 (0-0.4) Platelet Estimate NORMAL (NORMAL) RBC Morphology NORMAL Sodium 137 (137-145) mmol/L Potassium 4.8 (3.5-5.1) mmol/L Chloride 100 (98-107) mmol/L Carbon Dioxide 35 H (22-30) mmol/L Anion Gap 7.2 (5-15) MEQ/L BUN 18 (9-20) mg/dL Creatinine 0.93 (0.66-1.25) mg/dL Estimated GFR > 60.0 ML/MIN Glucose 214 H (74-106) mg/dL Calcium 8.2 L (8.4-10.2) mg/dL Multi-Disciplinary Progress Notes: Multi-Disciplinary Progress Notes 06/15/18 19:40 Respiratory Note by Reg Herndon PT REFUSED MDI DUE TO THRUSH. Initialized on 06/15/18 19:40 - END OF NOTE Assessment/Plan (1) COPD with exacerbation Current Visit: Yes Status: Acute Assessment & Plan: Continue IV zosyn. He has a PICC line in his right upper arm with one working port. He is not sure what Dr. Vaughan' plan for his PICC line was at time of discharge. Patient continues to have high WBC count with left shift and continued symptoms. I do not think he is ready for discharge today and should continue with IV Zosyn. Will reevaluate in the AM. Continue oxygen, prednisone 20 mg po bid, and breathing treatments. 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 Will ask nurses to teach patient how to give himself insulin. His blood glucoses have been elevated which is most likely due to the steroids needed for his COPD as well as his underlying diabetes. Code(s): E11.9 - TYPE 2 DIABETES MELLITUS WITHOUT COMPLICATIONS (4) Thrush, oral Current Visit: Yes Status: Acute Assessment & Plan: Slowly improving, continue nystatin. Code(s): B37.0 - CANDIDAL STOMATITIS (5) Weakness Current Visit: No Status: Chronic Onset Date: ~10/12/17 Assessment & Plan: Patient reports at this time he thinks he would have a hard time caring for himself at home. He reports his granddaughter lives with him and helps him some. He has declined any further resources offered by discharge planning. Code(s): R53.1 - WEAKNESS
[2018-06-16] MEDS ORDERED: Glucophage 500 MG PO SCH (09:00)
[2018-06-16] MEDS: Protonix 40MG Tablet PO SCH ×2 (11:11→22:06)
[2018-06-16] MEDS: Singulair 10 MG PO SCH (11:11)
[2018-06-16] MEDS: ELIQUIS 2.5 MG TABLET PO SCH ×2 (11:11→22:06)
[2018-06-16] MEDS: THEOPHYLLINE ER 24HR PO SCH (11:11)
[2018-06-16] MEDS: DELTASONE 20 MG PO SCH ×2 (11:11→22:05)
[2018-06-16] MEDS: xanAX 0.5 MG PO PRN ×2 (11:11→22:06)
[2018-06-16] MEDS: MARY'S MOUTHWASH PO SCH ×4 (11:12→22:06)
[2018-06-16] MEDS: Glucophage 500 MG PO SCH (17:12)
[2018-06-16] MEDS: Augmentin 875-125 Tablet PO SCH (22:05)
[2018-06-16] MEDS: Norco 10/325 MG Tablet PO PRN (22:06)
[2018-06-17] MEDS: DUONEB 0.5-3 MG/3 ml Neb IH SCH ×6 (03:44→23:38)
[2018-06-17] MEDS: Zosyn 3.375GM/100 Ml D5W 3.375 GM/100 ML IVPB IV SCH (05:16)
[2018-06-17 05:55] LABS: Hematocrit 36.1 % (42-50); Hemoglobin 11.2 gm/dl (12.5-18.0); Mean Cell Volume 94.5 fl (78-100); Mean Corpuscular Hemoglobin 29.3 pg (26-32); Mean Platelet Volume 8.3 fl (6-9.5); Platelet Count 267 K/mm3 (150-450); Red Blood Count 3.82 M/mm3 (4.1-5.6); Red Cell Distribution Width 13.8 % (11.5-14.0); White Blood Count 17.3 K/mm3 (4.0-10.5)
[2018-06-17 06:23] LABS: ANION GAP 9.5 MEQ/L (5-15); BLOOD UREA NITROGEN 19 mg/dL (9-20); CHLORIDE 100 mmol/L (98-107); Calcium 8.6 mg/dL (8.4-10.2); Carbon Dioxide 31 mmol/L (22-30); Creatinine 1 0.82 mg/dL (0.66-1.25); Glucose 232 mg/dL (74-106); SODIUM 136 mmol/L (137-145)
[2018-06-17 06:51] LABS: Lymphocytes 9 % (24-44); Monocyte 3 % (0.0-12.0); Neutrophils 88 % (36.-66.); Total Cells Counted 100
[2018-06-17 06:52] LABS: ANISOCYTOSIS 1+; Platelet Estimate NORMAL (NORMAL)
[2018-06-17] MEDS: Advair Hfa 230/21 Mcg COMMON CANISTER IH SCH ×2 (07:12→19:00)
[2018-06-17] MEDS: Glucophage 500 MG PO SCH ×2 (07:57→17:00)
[2018-06-17] MEDS: NovoLOG Insulin SQ PRN ×2 (07:58→17:00)
[2018-06-17] MEDS ORDERED: Lantus Insulin SQ ONE (10:30)
[2018-06-17] MEDS: DELTASONE 20 MG PO SCH ×2 (11:02→22:06)
[2018-06-17] MEDS: Protonix 40MG Tablet PO SCH ×2 (11:02→22:06)
[2018-06-17] MEDS: Augmentin 875-125 Tablet PO SCH ×2 (11:02→22:07)
[2018-06-17] MEDS: Singulair 10 MG PO SCH (11:02)
[2018-06-17] MEDS: ELIQUIS 2.5 MG TABLET PO SCH ×2 (11:03→22:07)
[2018-06-17] MEDS: THEOPHYLLINE ER 24HR PO SCH (11:03)
--- NOTE | 2018-06-17 11:05 | PCM.NOTE ---
Date and Time: 06/17/18 1100 Subjective Assessment: Patient reports he still feels very weak and is not sure he can take care of himself at home. He reports he slept well overnight. His PICC line stopped working yesterday. - Review of Systems Constitutional: Fatigue Eyes: No Symptoms Ears, Nose, & Throat: No Symptoms Respiratory: Cough, Short Of Breath Cardiac: No Symptoms Abdominal/Gastrointestinal: No Symptoms Genitourinary Symptoms: No Symptoms Musculoskeletal: Other (generalized weakness) Objective Exam General Appearance: no apparent distress Neurologic Exam: alert, cooperative, normal mood/affect Skin Exam: normal color, warm, dry, other (healing skin tears on arms bilat; picc line in right upper arm) Respiratory Exam: diminished breath sounds, prolonged expirations, other ( distant breath sounds bilat) Cardiovascular Exam: regular rate/rhythm, normal heart sounds, No murmur, No friction rub, No gallop Gastrointestinal/Abdomen Exam: soft, normal bowel sounds, No tenderness, No distention, No mass Extremity Exam: other (no c/c/e) OBJECTIVE DATA Vital Signs: Vital Signs - 24 hr Temp Pulse Resp BP Pulse Ox 06/17/18 07:12 98.2 F 90 20 145/87 98 06/17/18 07:02 95 H 18 98 06/17/18 04:10 98.1 F 86 20 139/85 97 06/17/18 04:00 20 06/17/18 03:45 87 20 95 06/17/18 00:00 20 06/16/18 23:35 98.1 F 89 20 155/75 97 06/16/18 23:06 94 H 22 96 06/16/18 20:00 22 06/16/18 19:40 97.6 F 88 22 133/86 97 06/16/18 16:01 98 F 82 20 136/78 96 06/16/18 15:07 78 18 97 06/16/18 11:16 97.9 F 85 20 140/70 96 06/16/18 11:14 88 20 97 Oxygen-Last 24 hours O2 Percentage 5 Liters = 40% O2 Percentage 5 Liters = 40% O2 Percentage 5 Liters = 40% O2 Percentage 5 Liters = 40% O2 Percentage 5 Liters = 40% O2 Percentage 5 Liters = 40% Pain Assessment - Last Documented Pain Intensity 0 Pain Scale Used 0-10 Pain Scale Intake and Output: Intake & Output 06/15/18 06/16/18 06/17/18 06/18/18 06:59 06:59 06:59 06:59 Intake Total 1289 484 3593 360 Output Total 2800 2320 2200 600 Balance -1400 -1360 -1000 -240 Weight 63.3 kg 63.7 kg 63.3 kg Lab Results: Accuchecks Date 06/16/18 Time 22:00 Accucheck Value: 260 Accucheck Value: 240 Accucheck Value: 308 Lab Results-Last 24 Hours 06/17/18 06/17/18 Range/Units 05:35 05:35 WBC 17.3 H (4.0-10.5) K/mm3 RBC 3.82 L (4.1-5.6) M/mm3 Hgb 11.2 L (12.5-18.0) gm/dl Hct 36.1 L (42-50) % MCV 94.5 (78-100) fl MCH 29.3 (26-32) pg MCHC 31.0 L (32-36) g/dl RDW 13.8 (11.5-14.0) % Plt Count 267 (150-450) K/mm3 MPV 8.3 (6-9.5) fl Segmented Neutrophils 88 H (36.-66.) % Lymphocytes (Manual) 9 L (24-44) % Monocytes (Manual) 3 (0.0-12.0) % Platelet Estimate NORMAL (NORMAL) RBC Morphology ABNORMAL Anisocytosis 1+ Sodium 136 L (137-145) mmol/L Potassium 5.0 (3.5-5.1) mmol/L Chloride 100 (98-107) mmol/L Carbon Dioxide 31 H (22-30) mmol/L Anion Gap 9.5 (5-15) MEQ/L BUN 19 (9-20) mg/dL Creatinine 0.82 (0.66-1.25) mg/dL Estimated GFR > 60.0 ML/MIN Glucose 232 H (74-106) mg/dL Calcium 8.6 (8.4-10.2) mg/dL Radiology Exams: Radiology Procedures Category Date Time Status CHEST 2 VIEWS (PA AND LAT) Routine Exams 06/17/18 10:52 Taken Multi-Disciplinary Progress Notes: Multi-Disciplinary Progress Notes 06/16/18 23:03 Respiratory Note by Reg Herndon PT REFUSED MDI DUE TO THRUSH. Initialized on 06/16/18 23:03 - END OF NOTE Assessment/Plan (1) COPD with exacerbation Current Visit: Yes Status: Acute Assessment & Plan: Continue prednisone. Changed to Augmentin from Zosyn. Will D/C PICC line today as one port not working and some concern about the other side not being sterile any longer. He has had increased WBC count now to 17,300. Will recheck Chest X -ray. No fevers. May need new line if spikes fever for more IV antibiotics. 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 Starting 10 units of lantus today daily. Sliding scale also ordered. Code(s): E11.9 - TYPE 2 DIABETES MELLITUS WITHOUT COMPLICATIONS (4) Thrush, oral Current Visit: Yes Status: Acute Assessment & Plan: Continue nystatin. Code(s): B37.0 - CANDIDAL STOMATITIS (5) Weakness Current Visit: No Status: Chronic Onset Date: ~10/12/17 Assessment & Plan: Patient does not want help at home but is not sure he can care for himself at home. Code(s): R53.1 - WEAKNESS (6) Leukocytosis Current Visit: Yes Status: Acute Assessment & Plan: Continue Augmentin; will need repeat cultures if spikes fever. Concern about PICC line which is being removed today. Code(s): D72.829 - ELEVATED WHITE BLOOD CELL COUNT, UNSPECIFIED
[2018-06-17] MEDS: MARY'S MOUTHWASH PO SCH ×4 (11:18→22:08)
--- NOTE | 2018-06-17 18:19 | XRAY ---
Indication: Short of breath, black lung, COPD, and emphysema. Comparison: June 05, 2018. Portable chest demonstrates new right arm PICC line in good position. Remaining chest unchanged with stable COPD, right lung postsurgical changes, bilateral fibrosis/scarring, and bibasilar pleural effusions/thickening. Heart and mediastinal structures within normal limits. No new cardiopulmonary abnormalities. Comment: Preliminary interpretation was made by [facility]. No critical discrepancy.
[2018-06-17] MEDS: xanAX 0.5 MG PO PRN (22:06)
[2018-06-17] MEDS: Norco 10/325 MG Tablet PO PRN (22:07)
[2018-06-18] MEDS: DUONEB 0.5-3 MG/3 ml Neb IH SCH ×2 (04:07→06:44)
[2018-06-18 05:33] LABS: Hematocrit 37.3 % (42-50); Hemoglobin 11.5 gm/dl (12.5-18.0); Mean Cell Volume 94.9 fl (78-100); Mean Corpuscular Hgb Concent. 30.8 g/dl (32-36); Mean Platelet Volume 8.2 fl (6-9.5); Platelet Count 228 K/mm3 (150-450); Red Blood Count 3.93 M/mm3 (4.1-5.6); Red Cell Distribution Width 13.8 % (11.5-14.0)
[2018-06-18 05:50] LABS: BLOOD UREA NITROGEN 21 mg/dL (9-20); CHLORIDE 98 mmol/L (98-107); Calcium 8.9 mg/dL (8.4-10.2); Carbon Dioxide 31 mmol/L (22-30); Creatinine 1 0.78 mg/dL (0.66-1.25); Glucose 218 mg/dL (74-106); Potassium 5.5 mmol/L (3.5-5.1); SODIUM 136 mmol/L (137-145)
[2018-06-18 05:51] LABS: Mean Corpuscular Hemoglobin 29.2 pg (26-32)
[2018-06-18] MEDS: Advair Hfa 230/21 Mcg COMMON CANISTER IH SCH (07:01)
[2018-06-18 07:44] LABS: BAND 1 % (0.0-2.0); Eosinophil 1 % (0.00-3.0); Lymphocytes 7 % (24-44); Neutrophils 91 % (36.-66.); Platelet Estimate NORMAL (NORMAL); Total Cells Counted 100
[2018-06-18 07:45] LABS: Toxic Granulation 1+
[2018-06-18] MEDS: Augmentin 875-125 Tablet PO SCH (07:51)
[2018-06-18] MEDS: Glucophage 500 MG PO SCH (07:51)
[2018-06-18] MEDS ORDERED: Lantus Insulin SQ SCH (08:00)
--- NOTE | 2018-06-18 08:41 | PCM.DS ---
Discharge Summary Date of Admission: 06/06/18 01:04 Admitting Physician: IBETH JAEGER Consults: Consults on Case 06/10/18 09:42 Consult Surgery ROUTINE Primary Care Provider: IBETH JAEGER Allergies Allergies No Known Drug Allergies Allergy (Verified 06/06/18 02:29) Hospital Summary - Hospital Course Hospital Course: patient was admitted with pneumonia type illness and copd exacerbation. has had a prolonged illness requiring IV steroids and zosyn, he is doing better at the time of discharge. patient has end-stage copd and code status is SCO, he declines any help at home or rehab stay in spite of profound weakness and severe copd. he does have family that lives with him and helps. - Vitals & Intake/Output Vital Signs: Vital Signs Temperature 97.6 F 06/18/18 07:29 Pulse Rate 66 06/18/18 07:29 Respiratory Rate 18 06/18/18 07:29 Blood Pressure 131/84 06/18/18 07:29 O2 Sat by Pulse Oximetry 99 06/18/18 07:29 Oxygen-Last Documented O2 Percentage 5 Liters = 40% Intake & Output: Intake & Output 06/15/18 06/16/18 06/17/18 06/18/18 11:59 11:59 11:59 11:59 Intake Total 1400 1200 1440 1080 Output Total 2800 2670 2450 2200 Balance -1400 -1470 -1010 -1120 Weight 63.3 kg 63.7 kg 63.3 kg 59.9 kg - Lab Result Diagrams: 06/18/18 05:15 06/18/18 05:15 Lab Results-Last 24 Hrs: Accuchecks Date 06/18/18 Date 06/17/18 Date 06/17/18 Date 06/17/18 Time 05:00 Time 22:00 Time 17:00 Time 11:30 Accucheck Value: 127 Accucheck Value: 230 Accucheck Value: 181 Lab Results-Last 24 Hours 06/18/18 06/18/18 Range/Units 05:15 05:15 WBC 15.0 H (4.0-10.5) K/mm3 RBC 3.93 L (4.1-5.6) M/mm3 Hgb 11.5 L (12.5-18.0) gm/dl Hct 37.3 L (42-50) % MCV 94.9 (78-100) fl MCH 29.2 (26-32) pg MCHC 30.8 L (32-36) g/dl RDW 13.8 (11.5-14.0) % Plt Count 228 (150-450) K/mm3 MPV 8.2 (6-9.5) fl Segmented Neutrophils 91 H (36.-66.) % Band Neutrophils 1 (0.0-2.0) % Lymphocytes (Manual) 7 L (24-44) % Eosinophils (Manual) 1 (0.00-3.0) % Toxic Granulation 1+ Platelet Estimate NORMAL (NORMAL) RBC Morphology NORMAL Sodium 136 L (137-145) mmol/L Potassium 5.5 H (3.5-5.1) mmol/L Chloride 98 (98-107) mmol/L Carbon Dioxide 31 H (22-30) mmol/L Anion Gap 12.0 (5-15) MEQ/L BUN 21 H (9-20) mg/dL Creatinine 0.78 (0.66-1.25) mg/dL Estimated GFR > 60.0 ML/MIN Glucose 218 H (74-106) mg/dL Calcium 8.9 (8.4-10.2) mg/dL Micro Results-Entire Visit: Microbiology 06/05/18 22:11 Blood Culture Gram Stain - Final Blood Not Reportable Blood Culture - Final NO GROWTH 06/05/18 21:55 Blood Culture Gram Stain - Final Blood Not Reportable Blood Culture - Final NO GROWTH Accuchecks Date 06/18/18 Date 06/17/18 Date 06/17/18 Date 06/17/18 Time 05:00 Time 22:00 Time 17:00 Time 11:30 Accucheck Value: 127 Accucheck Value: 230 Accucheck Value: 181 - Radiology Exams Ordered Rad Exams-Entire Visit: Radiology Procedures Category Date Time Status CHEST 2 VIEWS (PA AND LAT) Routine Exams 06/17/18 10:52 Completed - Procedures and Test Procedures and Tests throughout Hospitalization: Therapy Orders & Screens 06/06/18 01:11 Oxygen NASAL CANNULA 4 lpm Comment: Diagnosis: Shortness of Breath 06/06/18 01:15 Respiratory Therapy Assessment DAILY Comment: Diagnosis: Shortness of Breath 06/06/18 01:24 Peak Expiratory Flow Rate ONCE Comment: Reason For Exam: Diagnosis: Shortness of Breath 06/06/18 02:23 OT Screen per Nursing Assess ONCE Comment: Protocol Order Physician Instructions: Greater than 3 points order OT Admission Screening Reason For Exam: Triggered on Admission Diagnosis: Shortness of Breath/COPD exac. Open Wound/Cellutlitis/Pressure Ulcers: No Acute Fx/ORIF/Change in wt bearing status: No Severe MUSCULOSKELETAL pain: No ADL Dysfunction: Yes Acute CVA w/Hemiparesis/Hemiplegia: No Decreased Functional Mobility/Strength: Yes Sprain/Strain: No Acute Post-op Mobility Dysfunction: No Total Points: 4 PT Screen per Nursing Assess ONCE Comment: Protocol Order Physician Instructions: Greater than 3 points order PT Admission Screenin Reason For Exam: Triggered on Admission Diagnosis: Shortness of Breath/COPD exac. Open Wound/Cellutlitis/Pressure Ulcers: No Acute Fx/ORIF/Change in wt bearing status: No Severe MUSCULOSKELETAL pain: No ADL Dysfunction: Yes Acute CVA w/Hemiparesis/Hemiplegia: No Decreased Functional Mobility/Strength: Yes Sprain/Strain: No Acute Post-op Mobility Dysfunction: No Total Points: 4 RT Screen per Nursing Assess ONCE Comment: Protocol Order Physician Instructions: Greater than 3 points order RT Admission Screen Reason For Exam: Triggered on Admission Diagnosis: Shortness of Breath/COPD exac. Diagnosis: Shortness of Breath/COPD exac. Pneumonia: No Home O2: Yes Asthma: No CHF: No Home CPAP/BIPAP: No Home Nebs/MDI: Yes Total Points: 10 06/08/18 07:00 Respiratory MDI HS Comment: Diagnosis: Shortness of Breath/COPD exac. Discharge Exam General Appearance: no apparent distress, alert Skin Exam: normal color, warm, dry Ears, Nose, Throat Exam: normal ENT inspection, pharynx normal, moist mucous membranes Respiratory Exam: diminished breath sounds, prolonged expirations Cardiovascular Exam: regular rate/rhythm, normal heart sounds Gastrointestinal/Abdomen Exam: soft, No tenderness, No mass Extremity Exam: normal inspection, normal range of motion Final Diagnosis/Problem List - Final Discharge Diagnosis/Problem (1) Acute exacerbation of chronic obstructive airways disease Current Visit: No Status: Acute Onset Date: ~01/29/18 Assessment & Plan: home on po augmentin, resume po steroids and usual nebulizer regimen. (2) Black lung Current Visit: No Status: Chronic (3) Chronic hypoxemic respiratory failure Current Visit: No Status: Chronic (4) Hx pulmonary embolism Current Visit: No Status: Chronic (5) Protein calorie malnutrition Current Visit: No Status: Chronic (6) Weakness Current Visit: No Status: Chronic Onset Date: ~10/12/17 (7) Thrush, oral Current Visit: Yes Status: Acute - Discharge Disposition: Home, Self-Care Condition: Fair Prescriptions: New Amox Tr/Potass Clav. 875 mg [Augmentin 875-125 Tablet] 875 mg PO Q12H # 14 tablet Nystatin/TCN/Hc/Diphenhydramin [Nikki's Mouthwash] 5 ml PO QID #400 ml Continue Apixaban [Eliquis 5 mg Tablet] 5 mg PO BID Ipratropium/Albuterol Sulfate [Iprat-Albut 0.5-3(2.5) mg/3 ml] 3 ml IH Q4H Alprazolam 0.5 mg PO HS PRN PRN #30 tablet PRN Reason: Anxiety Hydrocodone/APAP 10/325 mg [Lilly 10/325 MG Tablet] 1 tab PO Q4H PRN PRN PRN Reason: Pain PANTOPRAZOLE 40 mg Tablet [Protonix 40MG Tablet] 40 mg PO BID #60 tab Fluticasone/Umeclidin/Vilanter [Trelegy Ellipta 100-62.5-25] 1 puff IH DAILY Simethicone 80 mg [Mylicon 80MG] 80 mg PO QID PRN PRN #50 tab.chew PRN Reason: Gas Prednisone 20 mg [Deltasone 20 mg] 20 mg PO DAILY #30 tablet Metformin HCl 500 mg [Glucophage 500 MG] 500 mg PO BID #60 tablet Follow up with: IBETH JAEGER MD [Primary Care Provider] - 1 Week
[2018-06-18] MEDS: Protonix 40MG Tablet PO SCH (09:01)
[2018-06-18] MEDS: ELIQUIS 2.5 MG TABLET PO SCH (09:01)
[2018-06-18] MEDS: DELTASONE 20 MG PO SCH (09:01)
[2018-06-18] MEDS: Singulair 10 MG PO SCH (09:01)
[2018-06-18] MEDS: MARY'S MOUTHWASH PO SCH (09:02)
[2018-06-18] MEDS: xanAX 0.5 MG PO PRN (09:05)
[2018-06-18] MEDS: THEOPHYLLINE ER 24HR PO SCH ×2 (09:09→09:55)
[2018-06-18 11:33] VITALS: BP 127/68; PULSE 110; O2SAT 97
== END 2018-06-18 11:35 | disposition home or self-care (01) | DRG 191 ==
LOC: ED 20:32 → MED SURG 06-06 01:04 → OBSVTOIN 06-06 01:04
PROVIDERS: ADMIT Family Medicine; ATTEND Family Medicine
DX: J44.1 Chronic obstructive pulmonary disease with (acute) exacerbation (principal); J96.11 Chronic respiratory failure with hypoxia; E46 Unspecified protein-calorie malnutrition; B37.0 Candidal stomatitis; J60 Coalworker's pneumoconiosis; Z86.711 Personal history of pulmonary embolism; R53.1 Weakness; Z79.01 Long term (current) use of anticoagulants; Z79.899 Other long term (current) drug therapy; E11.9 Type 2 diabetes mellitus without complications; Z79.4 Long term (current) use of insulin; M19.90 Unspecified osteoarthritis, unspecified site
CPT/HCPCS: 01916; 36000; 36415; 36569; 71045; 71046; 76942; 77001; 80048; 80053; 80198; 81001; 82805; 82962; 83036; 83880; 84484; 85025; 85379; 85610; 85730; 87040; 93005; 93041; 94150; 94640; 94760; 94762; 96360; 96361; 96365; 96374; 99285; C1769; J0280; J0456; J0696; J1642; J2543; J2930; J7609; A9270-GY

== ENCOUNTER 2018-07-22 15:41 | Inpatient (IN) | payer BLACK LUNG, MEDICARE, OTHER ==
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
[2018-07-22 17:14] LABS: BASOPHIL % 0.2 % (0.0-0.4); Basophil (Absolute #) 0.02 (0-0.4); Eosinophil % 0.8 % (0.00-5.0); Eosinophil (Absolute #) 0.09 (0-0.5); Granulocyte Absolute (ANC) 8.14 (1.4-6.9); Granulocytes % 72.4 % (36.0-66.0); Hematocrit 36.9 % (42-50); Hemoglobin 11.7 gm/dl (12.5-18.0); Lymphocytes % 22.3 % (24.0-44.0); Mean Corpuscular Hgb Concent. 31.7 g/dl (32-36); Mean Platelet Volume 8.3 fl (6-9.5); Monocyte (Absolute #) 0.48 (0.0-1.3); Monocytes % 4.3 % (0.0-12.0); Platelet Count 241 K/mm3 (150-450); Red Blood Count 4.01 M/mm3 (4.1-5.6); Red Cell Distribution Width 13.6 % (11.5-14.0); White Blood Count 11.2 K/mm3 (4.0-10.5)
[2018-07-22 17:22] LABS: Mean Corpuscular Hemoglobin 29.1 pg (26-32)
[2018-07-22 17:25] LABS: Lactic Acid 3.1 (0.4-2.0)
[2018-07-22 17:42] LABS: ALKALINE PHOSPHATASE 72 U/L (38-126); ANION GAP 14.8 MEQ/L (5-15); BLOOD UREA NITROGEN 13 mg/dL (9-20); CHLORIDE 102 mmol/L (98-107); Calcium 9.5 mg/dL (8.4-10.2); Carbon Dioxide 29 mmol/L (22-30); Creatinine 1 0.77 mg/dL (0.66-1.25); Glucose 136 mg/dL (74-106); NT PRO BNP 205 pg/mL (0-900); Potassium 4.5 mmol/L (3.5-5.1); SGOT/AST 15 U/L (17-59); SGPT/ALT 14 U/L (0-50); SODIUM 142 mmol/L (137-145)
[2018-07-22 17:59] LABS: INFLUENZA A NEGATIVE (NEGATIVE); INFLUENZA B NEGATIVE (NEGATIVE); RESPIRATORY SYNCTIAL VIRUS NEGATIVE (Negative)
[2018-07-22] MEDS ORDERED: Sodium Chloride 0.9% 1000 ML 1,000 ML IV STA (18:02)
[2018-07-22] MEDS ORDERED: Sodium Chloride 0.9% 1000 ML 1,000 ML ONE (18:10)
[2018-07-22] MEDS ORDERED: ROCEPHIN 1 Gm-D5w 50 ml Bag** 1 G/50 ML IVPB IV STA (18:37)
[2018-07-22] MEDS ORDERED: ROCEPHIN 1 Gm-D5w 50 ml Bag** 1 G/50 ML IVPB IV ONE (18:40)
[2018-07-22] MEDS ORDERED: PROVENTIL 2.5 MG/3 ML NEB IH SCH ×2 (20:17→22:30)
--- NOTE | 2018-07-22 20:41 | XRAY ---
Indication: Cough and short of breath. Comparison: June 17, 2018. PA/lateral chest demonstrates new overlying monitoring leads and left base electronic device limiting exam. Grossly stable COPD, right lung postsurgical changes, bilateral fibrosis/scarring, bibasilar pleural effusions/thickening, osteopenia/degenerative changes, and old left rib fractures. Heart is not enlarged. No new/acute cardiopulmonary abnormalities.
[2018-07-22] MEDS ORDERED: Sodium Chloride 0.9% 1000 ML 0 ML ONE (22:25)
[2018-07-22] MEDS: DUONEB 0.5-3 MG/3 ml Neb IH SCH (22:31)
[2018-07-22] MEDS ORDERED: Mylicon 80MG PO PRN (22:42)
[2018-07-22] MEDS: xanAX 0.5 MG PO PRN (22:52)
[2018-07-22] MEDS: Protonix 40MG Tablet PO SCH (22:52)
[2018-07-22] MEDS: Glucophage 500 MG PO SCH (22:52)
[2018-07-22] MEDS: Norco 10/325 MG Tablet PO PRN (22:53)
[2018-07-22] MEDS: ELIQUIS 2.5 MG TABLET PO SCH (22:53)
[2018-07-22] MEDS: solu-MEDROL 125 MG IV SCH (23:44)
[2018-07-23] MEDS: DUONEB 0.5-3 MG/3 ml Neb IH SCH ×7 (03:21→23:47)
[2018-07-23] MEDS: solu-MEDROL 125 MG IV SCH ×4 (05:32→23:46)
[2018-07-23 05:51] LABS: Hematocrit 31.4 % (42-50); Hemoglobin 10.2 gm/dl (12.5-18.0); Mean Cell Volume 90.2 fl (78-100); Mean Corpuscular Hemoglobin 29.3 pg (26-32); Mean Corpuscular Hgb Concent. 32.5 g/dl (32-36); Mean Platelet Volume 8.4 fl (6-9.5); Platelet Count 249 K/mm3 (150-450); Red Blood Count 3.48 M/mm3 (4.1-5.6); Red Cell Distribution Width 13.3 % (11.5-14.0); White Blood Count 6.8 K/mm3 (4.0-10.5)
[2018-07-23 05:58] LABS: ANION GAP 11.3 MEQ/L (5-15); BLOOD UREA NITROGEN 20 mg/dL (9-20); CHLORIDE 105 mmol/L (98-107); Calcium 8.4 mg/dL (8.4-10.2); Carbon Dioxide 25 mmol/L (22-30); Creatinine 1 0.67 mg/dL (0.66-1.25); Glucose 260 mg/dL (74-106); Potassium 4.3 mmol/L (3.5-5.1); SODIUM 137 mmol/L (137-145)
[2018-07-23] MEDS: Glucophage 500 MG PO SCH ×2 (08:05→16:46)
[2018-07-23] MEDS: NovoLOG Insulin SQ PRN ×3 (08:05→21:48)
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
[2018-07-23] MEDS: ROCEPHIN 1 Gm-D5w 50 ml Bag** 1 G/50 ML IVPB IV SCH (08:55)
[2018-07-23] MEDS: Protonix 40MG Tablet PO SCH ×2 (08:55→21:47)
[2018-07-23] MEDS: ELIQUIS 2.5 MG TABLET PO SCH ×2 (08:55→21:46)
[2018-07-23] MEDS: Zithromax 500 MG/ 250 ML NaCl Premix 500 MG/250 ML IVPB IV SCH (09:44)
[2018-07-23] MEDS ORDERED: DELTASONE 20 MG PO SCH (10:00)
[2018-07-23] MEDS: xanAX 0.5 MG PO PRN (21:47)
[2018-07-24] MEDS: DUONEB 0.5-3 MG/3 ml Neb IH SCH ×6 (03:45→23:13)
[2018-07-24 05:44] LABS: BASOPHIL % 0.1 % (0.0-0.4); Basophil (Absolute #) 0.01 (0-0.4); Eosinophil % 0.1 % (0.00-5.0); Eosinophil (Absolute #) 0.01 (0-0.5); Granulocyte Absolute (ANC) 16.81 (1.4-6.9); Granulocytes % 93.6 % (36.0-66.0); Hematocrit 28.9 % (42-50); Hemoglobin 9.3 gm/dl (12.5-18.0); Lymphocyte (Absolute #) 0.81 (1.0-4.6); Lymphocytes % 4.5 % (24.0-44.0); Mean Cell Volume 90.9 fl (78-100); Mean Corpuscular Hemoglobin 29.2 pg (26-32); Mean Corpuscular Hgb Concent. 32.2 g/dl (32-36); Mean Platelet Volume 8.2 fl (6-9.5); Monocytes % 1.7 % (0.0-12.0); Platelet Count 255 K/mm3 (150-450); Red Blood Count 3.18 M/mm3 (4.1-5.6); Red Cell Distribution Width 13.4 % (11.5-14.0); White Blood Count 17.9 K/mm3 (4.0-10.5)
[2018-07-24 06:03] LABS: ANION GAP 11.3 MEQ/L (5-15); BLOOD UREA NITROGEN 19 mg/dL (9-20); CHLORIDE 106 mmol/L (98-107); Calcium 8.6 mg/dL (8.4-10.2); Carbon Dioxide 26 mmol/L (22-30); Creatinine 1 0.71 mg/dL (0.66-1.25); Glucose 218 mg/dL (74-106); Potassium 4.2 mmol/L (3.5-5.1); SODIUM 139 mmol/L (137-145)
[2018-07-24] MEDS: solu-MEDROL 125 MG IV SCH ×3 (06:08→18:00)
[2018-07-24] MEDS: NovoLOG Insulin SQ PRN ×3 (07:56→16:49)
[2018-07-24] MEDS: Glucophage 500 MG PO SCH ×2 (07:56→16:49)
[2018-07-24] MEDS: Norco 10/325 MG Tablet PO PRN ×2 (08:01→21:46)
[2018-07-24] MEDS: Lantus Insulin SQ SCH (08:01)
--- NOTE | 2018-07-24 08:42 | PCM.NOTE ---
Date and Time: 07/24/18 0834 Subjective Assessment: Pt still SOB with talking or being up to the bathroom. Urinating well. Was anxious with shortness of breath yesterday and only had xanax ordered at hs prn ; at home takes up to TID. Tolerating po. - Review of Systems Constitutional: No Fever Respiratory: Cough, Short Of Breath Objective Exam General Appearance: no apparent distress, alert, thin Neurologic Exam: oriented x 3, cooperative Skin Exam: warm, dry, No rash Ears, Nose, Throat Exam: moist mucous membranes Respiratory Exam: diminished breath sounds (fair air exchange), wheezing ( expiratory, throughout), No crackles/rales, No rhonchi Cardiovascular Exam: regular rate/rhythm, No normal heart sounds (distant), No murmur OBJECTIVE DATA Vital Signs: Vital Signs - 24 hr Temp Pulse Resp BP Pulse Ox 07/24/18 08:05 85 21 95 07/24/18 07:38 97.6 F 84 20 132/91 96 07/24/18 04:00 97.5 F 79 18 120/59 96 07/24/18 03:46 84 20 96 07/24/18 00:00 97.5 F 84 20 109/59 97 07/23/18 23:48 84 20 95 07/23/18 20:00 98.3 F 79 19 103/59 97 07/23/18 19:47 86 20 96 07/23/18 16:00 97.8 F 86 22 97/58 98 07/23/18 15:09 90 24 95 07/23/18 12:00 97.7 F 82 20 156/56 95 07/23/18 11:45 72 20 97 Oxygen-Last 24 hours O2 Percentage 5 Liters = 40% O2 Percentage 5 Liters = 40% O2 Percentage 5 Liters = 40% O2 Percentage 5 Liters = 40% O2 Percentage 5 Liters = 40% O2 Percentage 5 Liters = 40% Pain Assessment - Last Documented Pain Intensity 7 Pain Scale Used 0-10 Pain Scale Intake and Output: Intake & Output 07/21/18 07/22/18 07/23/18 07/24/18 11:59 11:59 11:59 11:59 Intake Total 8767 3161 Output Total 443 2250 Balance 2364 911 Weight 60.1 kg 62.6 kg Lab Results: Accuchecks Date 07/23/18 Time 22:00 Accucheck Value: 218 Accucheck Value: 281 Accucheck Value: 190 Accucheck Value: 326 Lab Results-Last 24 Hours 07/24/18 07/24/18 Range/Units 05:26 05:26 WBC 17.9 H (4.0-10.5) K/mm3 RBC 3.18 L (4.1-5.6) M/mm3 Hgb 9.3 L (12.5-18.0) gm/dl Hct 28.9 L (42-50) % MCV 90.9 (78-100) fl MCH 29.2 (26-32) pg MCHC 32.2 (32-36) g/dl RDW 13.4 (11.5-14.0) % Plt Count 255 (150-450) K/mm3 MPV 8.2 (6-9.5) fl Gran % 93.6 H (36.0-66.0) % Eos # (Auto) 0.01 (0-0.5) Absolute Lymphs (auto) 0.81 L (1.0-4.6) Absolute Monos (auto) 0.30 (0.0-1.3) Lymphocytes % 4.5 L (24.0-44.0) % Monocytes % 1.7 (0.0-12.0) % Eosinophils % 0.1 (0.00-5.0) % Basophils % 0.1 (0.0-0.4) % Absolute Granulocytes 16.81 H (1.4-6.9) Basophils # 0.01 (0-0.4) Sodium 139 (137-145) mmol/L Potassium 4.2 (3.5-5.1) mmol/L Chloride 106 (98-107) mmol/L Carbon Dioxide 26 (22-30) mmol/L Anion Gap 11.3 (5-15) MEQ/L BUN 19 (9-20) mg/dL Creatinine 0.71 (0.66-1.25) mg/dL Estimated GFR > 60.0 ML/MIN Glucose 218 H (74-106) mg/dL Calcium 8.6 (8.4-10.2) mg/dL Radiology Exams: Radiology Procedures Category Date Time Status CHEST 2 VIEWS (PA AND LAT) Stat Exams 07/22/18 16:36 Completed Assessment/Plan (1) COPD with exacerbation Current Visit: Yes Status: Acute Assessment & Plan: On rocephin and zithromax, day #2. Solumedrol 80mg IV q6h; will not change yet as he is still markedly wheezy. Code(s): J44.1 - CHRONIC OBSTRUCTIVE PULMONARY DISEASE W (ACUTE) EXACERBATION (2) Chronic hypoxemic respiratory failure Current Visit: No Status: Chronic (3) Diabetes mellitus Current Visit: No Status: Chronic Qualifiers: Diabetes mellitus type: type 2 Diabetes mellitus oil heaterman insulin use: without oil heaterman use Diabetes mellitus complication status: with unspecified complications Qualified Code(s): E11.8 - Type 2 diabetes mellitus with unspecified complications Assessment & Plan: Added 10 units Lantus; BS elevated as pt is on steroid. Code(s): E11.9 - TYPE 2 DIABETES MELLITUS WITHOUT COMPLICATIONS (4) Hx pulmonary embolism Current Visit: No Status: Chronic Assessment & Plan: on Eliquis Code(s): Z86.711 - PERSONAL HISTORY OF PULMONARY EMBOLISM (5) DNR (do not resuscitate) Current Visit: No Status: Acute Assessment & Plan: order signed.
[2018-07-24] MEDS: Protonix 40MG Tablet PO SCH ×2 (09:40→21:46)
[2018-07-24] MEDS: ELIQUIS 2.5 MG TABLET PO SCH ×2 (09:40→21:46)
[2018-07-24] MEDS: ROCEPHIN 1 Gm-D5w 50 ml Bag** 1 G/50 ML IVPB IV SCH (09:41)
[2018-07-24] MEDS: Zithromax 500 MG/ 250 ML NaCl Premix 500 MG/250 ML IVPB IV SCH (10:37)
[2018-07-24] MEDS ORDERED: Tums EX 750 MG PO PRN (17:11)
[2018-07-24] MEDS: xanAX 0.5 MG PO PRN (21:47)
[2018-07-25] MEDS: solu-MEDROL 125 MG IV SCH ×3 (00:07→12:12)
[2018-07-25] MEDS: DUONEB 0.5-3 MG/3 ml Neb IH SCH ×3 (03:04→10:50)
--- NOTE | 2018-07-25 07:58 | PCM.DS ---
Discharge Summary Date of Admission: 07/22/18 20:09 Admitting Physician: IBETH JAEGER Primary Care Provider: IBETH JAEGER Allergies Allergies No Known Drug Allergies Allergy (Verified 07/22/18 16:02) Hospital Summary - Hospital Course Hospital Course: patient with end-stage copd admitted with increased cough and shortness of breath. no fever or sputum production, has been on hospice in the past, disease is end-stage and he is aware. code status is SCO. he was admitted and treated with IV steroids, nebs and antibiotics, is feeling better and is returned to his baseline at this time. will return home to the care of his granddaughter who lives with him. - Vitals & Intake/Output Vital Signs: Vital Signs Temperature 98.2 F 07/25/18 07:11 Pulse Rate 98 H 07/25/18 07:11 Respiratory Rate 18 07/25/18 07:11 Blood Pressure 137/75 07/25/18 07:11 O2 Sat by Pulse Oximetry 95 07/25/18 07:11 Oxygen-Last Documented O2 Percentage 5 Liters = 40% Intake & Output: Intake & Output 07/22/18 07/23/18 07/24/18 07/25/18 11:59 11:59 11:59 11:59 Intake Total 2739 3641 2469 Output Total 375 2500 Balance 2364 1141 2469 Weight 60.1 kg 62.6 kg 63.2 kg - Lab Result Diagrams: 07/24/18 05:26 07/24/18 05:26 Lab Results-Last 24 Hrs: Accuchecks Date 07/24/18 Time 22:00 Accucheck Value: 170 Accucheck Value: 239 Accucheck Value: 295 Micro Results-Entire Visit: Microbiology 07/22/18 19:45 Blood Culture - Preliminary Blood NO GROWTH TO DATE 07/22/18 17:00 Blood Culture - Preliminary Blood NO GROWTH TO DATE Accuchecks Date 07/24/18 Time 22:00 Accucheck Value: 170 Accucheck Value: 239 Accucheck Value: 295 - Procedures and Test Procedures and Tests throughout Hospitalization: Therapy Orders & Screens 07/22/18 20:17 Oxygen Nasal Cannula 5 lpm Comment: Respiratory Therapy Consult ROUTINE Comment: Reason For Exam: 07/22/18 20:37 Respiratory Therapy Assessment DAILY Comment: 07/22/18 20:38 Peak Expiratory Flow Rate DAILY Comment: Reason For Exam: 07/22/18 21:12 RT Screen per Nursing Assess ONCE Comment: Protocol Order Physician Instructions: Greater than 3 points order RT Admission Screen Reason For Exam: Triggered on Admission Diagnosis: exac COPD Diagnosis: exac COPD Pneumonia: Yes Home O2: Yes Asthma: No CHF: No Home CPAP/BIPAP: No Home Nebs/MDI: Yes Total Points: 13 Discharge Exam General Appearance: no apparent distress, thin Neurologic Exam: alert, oriented x 3 Skin Exam: normal color, warm, dry Respiratory Exam: diminished breath sounds, prolonged expirations Cardiovascular Exam: regular rate/rhythm, normal heart sounds Gastrointestinal/Abdomen Exam: soft, No tenderness, No mass Extremity Exam: normal inspection, normal range of motion Final Diagnosis/Problem List - Final Discharge Diagnosis/Problem (1) Acute exacerbation of chronic obstructive airways disease Current Visit: No Status: Acute Onset Date: ~01/29/18 (2) Hx pulmonary embolism Current Visit: No Status: Chronic - Discharge Disposition: Home, Self-Care Condition: Stable Prescriptions: New Prednisone 20 mg [Deltasone 20 mg] 20 mg PO UD #18 tablet Doxycycline Hyclate 100 mg PO BID #14 tablet Continue Apixaban [Eliquis 5 mg Tablet] 5 mg PO BID Ipratropium/Albuterol Sulfate [Iprat-Albut 0.5-3(2.5) mg/3 ml] 3 ml IH Q4H Alprazolam 0.5 mg PO HS PRN PRN #30 tablet PRN Reason: Anxiety Hydrocodone/APAP 10/325 mg [[place] 10/325 MG Tablet] 1 tab PO Q4H PRN PRN PRN Reason: Pain PANTOPRAZOLE 40 mg Tablet [Protonix 40MG Tablet] 40 mg PO BID #60 tab Fluticasone/Umeclidin/Vilanter [Trelegy Ellipta 100-62.5-25] 1 puff IH DAILY Simethicone 80 mg [Mylicon 80MG] 80 mg PO QID PRN PRN #50 tab.chew PRN Reason: Gas Prednisone 20 mg [Deltasone 20 mg] 20 mg PO DAILY #30 tablet Metformin HCl 500 mg [Glucophage 500 MG] 500 mg PO BID #60 tablet Follow up with: IBETH JAEGER MD [Primary Care Provider] - 1 Week
[2018-07-25] MEDS: Glucophage 500 MG PO SCH (08:08)
[2018-07-25] MEDS: NovoLOG Insulin SQ PRN (08:08)
[2018-07-25] MEDS: Lantus Insulin SQ SCH (08:09)
[2018-07-25] MEDS: Protonix 40MG Tablet PO SCH (09:22)
[2018-07-25] MEDS: ELIQUIS 2.5 MG TABLET PO SCH (09:22)
[2018-07-25] MEDS: Zithromax 500 MG/ 250 ML NaCl Premix 500 MG/250 ML IVPB IV SCH (09:22)
[2018-07-25] MEDS: ROCEPHIN 1 Gm-D5w 50 ml Bag** 1 G/50 ML IVPB IV SCH (10:59)
[2018-07-25 13:12] VITALS: BP 110/61; PULSE 103; O2SAT 92
[2018-07-25] MEDS: xanAX 0.5 MG PO PRN (13:35)
== END 2018-07-25 13:58 | disposition home or self-care (01) | DRG 191 ==
LOC: ED 15:41 → MED SURG 20:09
PROVIDERS: ADMIT Family Medicine; ATTEND Family Medicine
DX: J44.1 Chronic obstructive pulmonary disease with (acute) exacerbation (principal); J96.11 Chronic respiratory failure with hypoxia; E11.9 Type 2 diabetes mellitus without complications; Z86.711 Personal history of pulmonary embolism; Z79.899 Other long term (current) drug therapy; Z79.01 Long term (current) use of anticoagulants; Z79.84 Long term (current) use of oral hypoglycemic drugs
CPT/HCPCS: 36000; 36415; 71046; 80048; 80053; 82962; 83605; 83880; 84484; 85025; 85027; 87040; 87631; 93005; 93041; 94150; 94640; 94760; 94762; 96360; 96365; 99285; J0456; J0696; J2930; A9270-GY

== ENCOUNTER 2018-08-30 09:52 | Inpatient (IN) | payer BLACK LUNG, MEDICARE, OTHER ==
[2018-08-30] MEDS ORDERED: solu-MEDROL 125 MG IV ONE (10:40)
[2018-08-30] MEDS ORDERED: PROVENTIL 2.5 MG/3 ML NEB IH ONE ×2 (10:40→11:07)
[2018-08-30] MEDS ORDERED: Sodium Chloride 0.9% 1000 ML 1,000 ML IV SCH (10:45)
[2018-08-30] MEDS ORDERED: Sodium Chloride 0.9% 1000 ML 1,000 ML ONE (10:46)
[2018-08-30] MEDS ORDERED: solu-MEDROL 125 MG ONE (10:46)
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
--- NOTE | 2018-08-30 11:04 | XRAY ---
Indication: Dry cough. Short of breath. Comparison: July 22, 2018. Portable chest unchanged again demonstrating COPD, right lung postsurgical changes, bilateral fibrosis/scarring, bibasilar pleural effusions/thickening, osteopenia/degenerative changes, and old left rib fractures. Heart and mediastinal structures within normal limits. No new/acute findings.
[2018-08-30 11:14] LABS: VBG BASE EXCESS 6.3 (-2.0-2.0); VBG CARBOXYHEMOGLOBIN 1.9 % T HGB (0.0-6.9); VBG HCO3- 32.8 meq/L (22-28); VBG HEMOGLOBIN 15.5; VBG O2 SATURATION 22.6 (95-100); VBG POTASSIUM 4.3 (3.5-5.1); VBG pH 7.4 (7.32-7.42)
[2018-08-30 11:15] LABS: Lactic Acid 2.4 (0.4-2.0)
[2018-08-30 11:24] LABS: Hematocrit 47.6 % (42-50); Hemoglobin 15.1 gm/dl (12.5-18.0); Mean Cell Volume 92.8 fl (78-100); Mean Corpuscular Hemoglobin 29.4 pg (26-32); Mean Corpuscular Hgb Concent. 31.7 g/dl (32-36); Platelet Count 321 K/mm3 (150-450); Red Blood Count 5.13 M/mm3 (4.1-5.6); Red Cell Distribution Width 14.7 % (11.5-14.0); White Blood Count 13.3 K/mm3 (4.0-10.5)
[2018-08-30 11:44] LABS: BAND 1 % (0.0-2.0); Basophil 1 % (0.0-1.0); Lymphocytes 23 % (24-44); Monocyte 6 % (0.0-12.0); Neutrophils 69 % (36.-66.); Platelet Estimate NORMAL (NORMAL); Total Cells Counted 100
[2018-08-30 11:45] LABS: INR 1.09 (0.8-3.0); PROTIME 12.7 SECONDS (8.83-12.87)
[2018-08-30 11:47] LABS: PTT 26.2 SECONDS (24.1-36.1)
[2018-08-30 11:58] LABS: ALBUMIN 4.7 g/dL (3.5-5.0); ALKALINE PHOSPHATASE 82 U/L (38-126); BLOOD UREA NITROGEN 16 mg/dL (9-20); CHLORIDE 96 mmol/L (98-107); Calcium 10.5 mg/dL (8.4-10.2); Carbon Dioxide 31 mmol/L (22-30); Creatinine 1 1.17 mg/dL (0.66-1.25); Glucose 125 mg/dL (74-106); NT PRO BNP 435 pg/mL (0-900); Potassium 4.4 mmol/L (3.5-5.1); SGOT/AST 20 U/L (17-59); SGPT/ALT 17 U/L (0-50); SODIUM 139 mmol/L (137-145); Total Protein 8.3 g/dL (6.3-8.2)
[2018-08-30 12:18] LABS: INFLUENZA A NEGATIVE (NEGATIVE); INFLUENZA B NEGATIVE (NEGATIVE); RESPIRATORY SYNCTIAL VIRUS NEGATIVE (Negative)
[2018-08-30] MEDS ORDERED: ROCEPHIN 1 Gm-D5w 50 ml Bag** 1 G/50 ML IVPB IV STA (13:09)
[2018-08-30] MEDS ORDERED: ROCEPHIN 1 Gm-D5w 50 ml Bag** 1 G/50 ML IVPB IV ONE (13:18)
--- NOTE | 2018-08-30 13:24 | XRAY ---
Indication: Short of breath and weakness. Elevated d-dimer. Multiple contiguous axial images obtained through the chest using 80 cc Isovue 370 contrast and PE protocol. Comparison: Conventional CT chest without contrast August 17, 2016. There is satisfactory opacification of the pulmonary arteries. No filling defect or pulmonary embolus. Heart is not enlarged. Aorta remains mildly arteriosclerotic without aneurysm/dissection. Stable bilateral perihilar calcified nodes. No pathologic mediastinal/hilar lymphadenopathy. Examination of the lung parenchyma again demonstrates diffuse pulmonary emphysema, scattered fibrosis/scarring, and right lung postsurgical changes. Previous posterior right lung airspace opacities have markedly improved with mild residual atelectasis/scarring. New left lower lobe posterior medial segmental atelectasis and new small bibasilar effusions. Bony thorax again demonstrates osteopenia and moderate degenerative changes throughout the visualized thoracolumbar spine. New minimal/mild T6-T10 compression deformities of uncertain chronicity. Greatest compression deformity is T8 with approximately 50% height loss. Limited upper abdomen including adrenal glands unremarkable. Impression: 1. Negative pulmonary embolus. 2. New left lower lobe segmental atelectasis and small bibasilar effusions. 3. Stable pulmonary emphysema, scattered fibrosis/scarring, right lung postsurgical changes, and evidence for old granulomatous disease. 4. New T6-T10 compression deformities of uncertain chronicity. CT DI 9.70
[2018-08-30] MEDS ORDERED: DUONEB 0.5-3 MG/3 ml Neb IH ONE ×2 (14:00→14:03)
[2018-08-30] MEDS: Zithromax 500 MG/ 250 ML NaCl Premix 500 MG/250 ML IVPB IV SCH (15:48)
[2018-08-30] MEDS: Sodium Chloride 0.9% 1000 ML 1,000 ML IV SCH (15:49)
[2018-08-30] MEDS ORDERED: xanAX 0.5 MG PO PRN (15:50)
[2018-08-30] MEDS ORDERED: MEDICATION INTERVENTION MC SCH (16:00)
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
[2018-08-30] MEDS: solu-MEDROL 125 MG IV SCH (17:16)
[2018-08-30] MEDS: Advair Hfa 230/21 Mcg COMMON CANISTER IH SCH (20:27)
[2018-08-30] MEDS: DUONEB 0.5-3 MG/3 ml Neb IH PRN (20:29)
[2018-08-30] MEDS: ELIQUIS 2.5 MG TABLET PO SCH (22:50)
[2018-08-30] MEDS: Pepcid 20 MG PO SCH (22:51)
[2018-08-30] MEDS: NovoLOG Insulin SQ PRN (22:51)
[2018-08-31] MEDS: DUONEB 0.5-3 MG/3 ml Neb IH PRN (00:23)
[2018-08-31] MEDS: solu-MEDROL 125 MG IV SCH ×5 (00:26→23:56)
[2018-08-31] MEDS: Sodium Chloride 0.9% 1000 ML 1,000 ML IV SCH ×2 (00:47→21:32)
[2018-08-31] MEDS: Advair Hfa 230/21 Mcg COMMON CANISTER IH SCH ×2 (07:10→19:28)
[2018-08-31] MEDS: DUONEB 0.5-3 MG/3 ml Neb IH SCH ×5 (07:10→23:38)
[2018-08-31 07:35] LABS: Basophil (Absolute #) 0 (0-0.4); Eosinophil (Absolute #) 0 (0-0.5); Granulocyte Absolute (ANC) 5.53 (1.4-6.9); Granulocytes % 77.8 % (36.0-66.0); Hematocrit 34.5 % (42-50); Hemoglobin 10.8 gm/dl (12.5-18.0); Lymphocytes % 19.7 % (24.0-44.0); Mean Corpuscular Hemoglobin 29.1 pg (26-32); Mean Corpuscular Hgb Concent. 31.3 g/dl (32-36); Mean Platelet Volume 8.4 fl (6-9.5); Monocyte (Absolute #) 0.18 (0.0-1.3); Monocytes % 2.5 % (0.0-12.0); Platelet Count 282 K/mm3 (150-450); Red Blood Count 3.71 M/mm3 (4.1-5.6); Red Cell Distribution Width 14.3 % (11.5-14.0); White Blood Count 7.1 K/mm3 (4.0-10.5)
[2018-08-31 07:54] LABS: ALBUMIN 3.3 g/dL (3.5-5.0); ALKALINE PHOSPHATASE 53 U/L (38-126); ANION GAP 12.8 MEQ/L (5-15); BLOOD UREA NITROGEN 32 mg/dL (9-20); CHLORIDE 105 mmol/L (98-107); Calcium 8.9 mg/dL (8.4-10.2); Carbon Dioxide 29 mmol/L (22-30); Creatinine 1 1.01 mg/dL (0.66-1.25); Glucose 204 mg/dL (74-106); Potassium 4.8 mmol/L (3.5-5.1); SGOT/AST 12 U/L (17-59); SGPT/ALT 14 U/L (0-50); SODIUM 142 mmol/L (137-145)
[2018-08-31] MEDS: NovoLOG Insulin SQ PRN ×4 (08:32→22:00)
--- NOTE | 2018-08-31 08:51 | PCM.NOTE ---
Date and Time: 08/31/18 0847 Subjective Assessment: Pt feeling much better than at admission, but still feeling weak and dyspneic when up to the bathroom. Did have a BM. Was having some back soreness recently, earlier in the day than he previously experienced. - Review of Systems Constitutional: No Fever Respiratory: Cough, Short Of Breath Objective Exam General Appearance: no apparent distress, alert Neurologic Exam: oriented x 3, cooperative Skin Exam: normal color, warm, dry, No rash Eye Exam: eyes nml inspection Ears, Nose, Throat Exam: moist mucous membranes Neck Exam: normal inspection Respiratory Exam: lungs clear, diminished breath sounds (poor air exchange), wheezing (scattered), No crackles/rales, No rhonchi Cardiovascular Exam: regular rate/rhythm, normal heart sounds, No murmur Gastrointestinal/Abdomen Exam: soft, normal bowel sounds, No tenderness, No mass Extremity Exam: normal inspection, No pedal edema, No swelling OBJECTIVE DATA Vital Signs: Vital Signs - 24 hr Temp Pulse Resp BP Pulse Ox 08/31/18 07:44 98.2 F 70 16 109/69 99 08/31/18 00:24 70 19 98 08/31/18 00:14 69 19 97 08/31/18 00:00 97.6 F 69 19 85/58 99 08/30/18 20:00 97.9 F 91 H 18 87/54 96 08/30/18 16:04 100 H 20 97 08/30/18 16:03 5 L 08/30/18 15:05 97.6 F 94 H 23 92/57 96 08/30/18 14:46 93 L 08/30/18 14:06 94 H 23 96 08/30/18 13:59 93 H 22 92/57 94 L 08/30/18 13:58 97 08/30/18 13:00 96 H 18 100/58 94 L 08/30/18 11:50 100 H 96/54 97 08/30/18 11:26 95 H 24 96 08/30/18 09:54 97.6 F 97 H 27 H 105/71 97 Oxygen-Last 24 hours O2 Percentage 5 Liters = 40% O2 Percentage 5 Liters = 40% O2 Percentage 5 Liters = 40% O2 Percentage 5 Liters = 40% O2 Percentage 5 Liters = 40% O2 Percentage 5 Liters = 40% Pain Assessment - Last Documented Pain Intensity 0 Pain Scale Used 0-10 Pain Scale Intake and Output: Intake & Output 08/28/18 08/29/18 08/30/18 08/31/18 11:59 11:59 11:59 11:59 Intake Total 120 Output Total 500 Balance -380 Weight 58.967 kg 56.5 kg Lab Results: Accuchecks Date 08/31/18 Date 08/30/18 Time 22:00 Time 16:30 Accucheck Value: 219 Accucheck Value: 340 Accucheck Value: 143 Lab Results-Last 24 Hours 08/30/18 08/30/18 08/30/18 Range/Units 10:40 10:40 11:04 WBC 13.3 H (4.0-10.5) K/mm3 RBC 5.13 (4.1-5.6) M/mm3 Hgb 15.1 (12.5-18.0) gm/dl Hct 47.6 (42-50) % MCV 92.8 (78-100) fl MCH 29.4 (26-32) pg MCHC 31.7 L (32-36) g/dl RDW 14.7 H (11.5-14.0) % Plt Count 321 (150-450) K/mm3 MPV 9.0 (6-9.5) fl Gran % (36.0-66.0) % Eos # (Auto) (0-0.5) Absolute Lymphs (auto) (1.0-4.6) Absolute Monos (auto) (0.0-1.3) Lymphocytes % (24.0-44.0) % Monocytes % (0.0-12.0) % Eosinophils % (0.00-5.0) % Basophils % (0.0-0.4) % Absolute Granulocytes (1.4-6.9) Segmented Neutrophils 69 H (36.-66.) % Band Neutrophils 1 (0.0-2.0) % Lymphocytes (Manual) 23 L (24-44) % Monocytes (Manual) 6 (0.0-12.0) % Basophils (Manual) 1 (0.0-1.0) % Basophils # (0-0.4) Platelet Estimate NORMAL (NORMAL) RBC Morphology NORMAL PT (8.83-12.87) SECONDS INR (0.8-3.0) APTT (24.1-36.1) SECONDS D-Dimer (215-500) ng/mL pO2/FiO2 Ratio 36.0 % VBG pH 7.40 (7.32-7.42) VBG pCO2 at Pat Temp 53 (42-55) mm/Hg VBG pO2 at Pat Temp 15 L (25-40) mm/Hg VBG HCO3 32.8 H* (22-28) meq/L VBG O2 Sat (Bobbi) 22.6 L (95-100) VBG Base Excess 6.3 H (-2.0-2.0) VBG Hemoglobin 15.5 VBG Carboxyhemoglobin 1.9 (0.0-6.9) % T HGB POC Potassium 4.3 (3.5-5.1) Sodium (137-145) mmol/L Potassium (3.5-5.1) mmol/L Chloride (98-107) mmol/L Carbon Dioxide (22-30) mmol/L Anion Gap (5-15) MEQ/L BUN (9-20) mg/dL Creatinine (0.66-1.25) mg/dL Estimated GFR ML/MIN Glucose (74-106) mg/dL Lactic Acid 2.4 H (0.4-2.0) Calcium (8.4-10.2) mg/dL Total Bilirubin (0.2-1.3) mg/dL AST (17-59) U/L ALT (0-50) U/L Alkaline Phosphatase (38-126) U/L Troponin (0.00-0.03) ng/mL Troponin I (0.000-0.034) ng/mL NT-Pro-B Natriuret Pep (0-900) pg/mL Serum Total Protein (6.3-8.2) g/dL Albumin (3.5-5.0) g/dL Influenza Type A Ag (NEGATIVE) Influenza Type B Ag (NEGATIVE) RSV (PCR) (Negative) Slides for Path Review 08/30/18 08/30/18 08/30/18 Range/Units 11:26 11:26 11:26 WBC (4.0-10.5) K/mm3 RBC (4.1-5.6) M/mm3 Hgb (12.5-18.0) gm/dl Hct (42-50) % MCV (78-100) fl MCH (26-32) pg MCHC (32-36) g/dl RDW (11.5-14.0) % Plt Count (150-450) K/mm3 MPV (6-9.5) fl Gran % (36.0-66.0) % Eos # (Auto) (0-0.5) Absolute Lymphs (auto) (1.0-4.6) Absolute Monos (auto) (0.0-1.3) Lymphocytes % (24.0-44.0) % Monocytes % (0.0-12.0) % Eosinophils % (0.00-5.0) % Basophils % (0.0-0.4) % Absolute Granulocytes (1.4-6.9) Segmented Neutrophils (36.-66.) % Band Neutrophils (0.0-2.0) % Lymphocytes (Manual) (24-44) % Monocytes (Manual) (0.0-12.0) % Basophils (Manual) (0.0-1.0) % Basophils # (0-0.4) Platelet Estimate (NORMAL) RBC Morphology PT 12.7 (8.83-12.87) SECONDS INR 1.09 (0.8-3.0) APTT 26.2 (24.1-36.1) SECONDS D-Dimer 723 H* (215-500) ng/mL pO2/FiO2 Ratio % VBG pH (7.32-7.42) VBG pCO2 at Pat Temp (42-55) mm/Hg VBG pO2 at Pat Temp (25-40) mm/Hg VBG HCO3 (22-28) meq/L VBG O2 Sat (Bobbi) (95-100) VBG Base Excess (-2.0-2.0) VBG Hemoglobin VBG Carboxyhemoglobin (0.0-6.9) % T HGB POC Potassium (3.5-5.1) Sodium 139 (137-145) mmol/L Potassium 4.4 (3.5-5.1) mmol/L Chloride 96 L (98-107) mmol/L Carbon Dioxide 31 H (22-30) mmol/L Anion Gap 16.0 H (5-15) MEQ/L BUN 16 (9-20) mg/dL Creatinine 1.17 (0.66-1.25) mg/dL Estimated GFR > 60.0 ML/MIN Glucose 125 H (74-106) mg/dL Lactic Acid (0.4-2.0) Calcium 10.5 H (8.4-10.2) mg/dL Total Bilirubin 1.10 (0.2-1.3) mg/dL AST 20 (17-59) U/L ALT 17 (0-50) U/L Alkaline Phosphatase 82 (38-126) U/L Troponin (0.00-0.03) ng/mL Troponin I < 0.012 (0.000-0.034) ng/mL NT-Pro-B Natriuret Pep 435 (0-900) pg/mL Serum Total Protein 8.3 H (6.3-8.2) g/dL Albumin 4.7 (3.5-5.0) g/dL Influenza Type A Ag (NEGATIVE) Influenza Type B Ag (NEGATIVE) RSV (PCR) (Negative) Slides for Path Review 08/30/18 08/30/18 08/30/18 Range/Units 11:45 13:50 18:40 WBC (4.0-10.5) K/mm3 RBC (4.1-5.6) M/mm3 Hgb (12.5-18.0) gm/dl Hct (42-50) % MCV (78-100) fl MCH (26-32) pg MCHC (32-36) g/dl RDW (11.5-14.0) % Plt Count (150-450) K/mm3 MPV (6-9.5) fl Gran % (36.0-66.0) % Eos # (Auto) (0-0.5) Absolute Lymphs (auto) (1.0-4.6) Absolute Monos (auto) (0.0-1.3) Lymphocytes % (24.0-44.0) % Monocytes % (0.0-12.0) % Eosinophils % (0.00-5.0) % Basophils % (0.0-0.4) % Absolute Granulocytes (1.4-6.9) Segmented Neutrophils (36.-66.) % Band Neutrophils (0.0-2.0) % Lymphocytes (Manual) (24-44) % Monocytes (Manual) (0.0-12.0) % Basophils (Manual) (0.0-1.0) % Basophils # (0-0.4) Platelet Estimate (NORMAL) RBC Morphology PT (8.83-12.87) SECONDS INR (0.8-3.0) APTT (24.1-36.1) SECONDS D-Dimer (215-500) ng/mL pO2/FiO2 Ratio % VBG pH (7.32-7.42) VBG pCO2 at Pat Temp (42-55) mm/Hg VBG pO2 at Pat Temp (25-40) mm/Hg VBG HCO3 (22-28) meq/L VBG O2 Sat (Bobbi) (95-100) VBG Base Excess (-2.0-2.0) VBG Hemoglobin VBG Carboxyhemoglobin (0.0-6.9) % T HGB POC Potassium (3.5-5.1) Sodium (137-145) mmol/L Potassium (3.5-5.1) mmol/L Chloride (98-107) mmol/L Carbon Dioxide (22-30) mmol/L Anion Gap (5-15) MEQ/L BUN (9-20) mg/dL Creatinine (0.66-1.25) mg/dL Estimated GFR ML/MIN Glucose (74-106) mg/dL Lactic Acid (0.4-2.0) Calcium (8.4-10.2) mg/dL Total Bilirubin (0.2-1.3) mg/dL AST (17-59) U/L ALT (0-50) U/L Alkaline Phosphatase (38-126) U/L Troponin 0.02 (0.00-0.03) ng/mL Troponin I < 0.012 (0.000-0.034) ng/mL NT-Pro-B Natriuret Pep (0-900) pg/mL Serum Total Protein (6.3-8.2) g/dL Albumin (3.5-5.0) g/dL Influenza Type A Ag NEGATIVE (NEGATIVE) Influenza Type B Ag NEGATIVE (NEGATIVE) RSV (PCR) NEGATIVE (Negative) Slides for Path Review 08/30/18 08/30/18 08/31/18 Range/Units 19:15 22:00 04:00 WBC 7.1 (4.0-10.5) K/mm3 RBC 3.71 L (4.1-5.6) M/mm3 Hgb 10.8 L D (12.5-18.0) gm/dl Hct 34.5 L (42-50) % MCV 93.0 (78-100) fl MCH 29.1 (26-32) pg MCHC 31.3 L (32-36) g/dl RDW 14.3 H (11.5-14.0) % Plt Count 282 (150-450) K/mm3 MPV 8.4 (6-9.5) fl Gran % 77.8 H (36.0-66.0) % Eos # (Auto) 0 (0-0.5) Absolute Lymphs (auto) 1.40 (1.0-4.6) Absolute Monos (auto) 0.18 (0.0-1.3) Lymphocytes % 19.7 L (24.0-44.0) % Monocytes % 2.5 (0.0-12.0) % Eosinophils % 0.0 (0.00-5.0) % Basophils % 0.0 (0.0-0.4) % Absolute Granulocytes 5.53 (1.4-6.9) Segmented Neutrophils (36.-66.) % Band Neutrophils (0.0-2.0) % Lymphocytes (Manual) (24-44) % Monocytes (Manual) (0.0-12.0) % Basophils (Manual) (0.0-1.0) % Basophils # 0 (0-0.4) Platelet Estimate (NORMAL) RBC Morphology PT (8.83-12.87) SECONDS INR (0.8-3.0) APTT (24.1-36.1) SECONDS D-Dimer (215-500) ng/mL pO2/FiO2 Ratio % VBG pH (7.32-7.42) VBG pCO2 at Pat Temp (42-55) mm/Hg VBG pO2 at Pat Temp (25-40) mm/Hg VBG HCO3 (22-28) meq/L VBG O2 Sat (Bobbi) (95-100) VBG Base Excess (-2.0-2.0) VBG Hemoglobin VBG Carboxyhemoglobin (0.0-6.9) % T HGB POC Potassium (3.5-5.1) Sodium (137-145) mmol/L Potassium (3.5-5.1) mmol/L Chloride (98-107) mmol/L Carbon Dioxide (22-30) mmol/L Anion Gap (5-15) MEQ/L BUN (9-20) mg/dL Creatinine (0.66-1.25) mg/dL Estimated GFR ML/MIN Glucose (74-106) mg/dL Lactic Acid (0.4-2.0) Calcium (8.4-10.2) mg/dL Total Bilirubin (0.2-1.3) mg/dL AST (17-59) U/L ALT (0-50) U/L Alkaline Phosphatase (38-126) U/L Troponin (0.00-0.03) ng/mL Troponin I 0.022 0.030 (0.000-0.034) ng/mL NT-Pro-B Natriuret Pep (0-900) pg/mL Serum Total Protein (6.3-8.2) g/dL Albumin (3.5-5.0) g/dL Influenza Type A Ag (NEGATIVE) Influenza Type B Ag (NEGATIVE) RSV (PCR) (Negative) Slides for Path Review 08/31/18 Range/Units 06:11 WBC (4.0-10.5) K/mm3 RBC (4.1-5.6) M/mm3 Hgb (12.5-18.0) gm/dl Hct (42-50) % MCV (78-100) fl MCH (26-32) pg MCHC (32-36) g/dl RDW (11.5-14.0) % Plt Count (150-450) K/mm3 MPV (6-9.5) fl Gran % (36.0-66.0) % Eos # (Auto) (0-0.5) Absolute Lymphs (auto) (1.0-4.6) Absolute Monos (auto) (0.0-1.3) Lymphocytes % (24.0-44.0) % Monocytes % (0.0-12.0) % Eosinophils % (0.00-5.0) % Basophils % (0.0-0.4) % Absolute Granulocytes (1.4-6.9) Segmented Neutrophils (36.-66.) % Band Neutrophils (0.0-2.0) % Lymphocytes (Manual) (24-44) % Monocytes (Manual) (0.0-12.0) % Basophils (Manual) (0.0-1.0) % Basophils # (0-0.4) Platelet Estimate (NORMAL) RBC Morphology PT (8.83-12.87) SECONDS INR (0.8-3.0) APTT (24.1-36.1) SECONDS D-Dimer (215-500) ng/mL pO2/FiO2 Ratio % VBG pH (7.32-7.42) VBG pCO2 at Pat Temp (42-55) mm/Hg VBG pO2 at Pat Temp (25-40) mm/Hg VBG HCO3 (22-28) meq/L VBG O2 Sat (Bobbi) (95-100) VBG Base Excess (-2.0-2.0) VBG Hemoglobin VBG Carboxyhemoglobin (0.0-6.9) % T HGB POC Potassium (3.5-5.1) Sodium 142 (137-145) mmol/L Potassium 4.8 (3.5-5.1) mmol/L Chloride 105 (98-107) mmol/L Carbon Dioxide 29 (22-30) mmol/L Anion Gap 12.8 (5-15) MEQ/L BUN 32 H (9-20) mg/dL Creatinine 1.01 (0.66-1.25) mg/dL Estimated GFR > 60.0 ML/MIN Glucose 204 H (74-106) mg/dL Lactic Acid (0.4-2.0) Calcium 8.9 D (8.4-10.2) mg/dL Total Bilirubin 0.50 (0.2-1.3) mg/dL AST 12 L (17-59) U/L ALT 14 (0-50) U/L Alkaline Phosphatase 53 (38-126) U/L Troponin (0.00-0.03) ng/mL Troponin I (0.000-0.034) ng/mL NT-Pro-B Natriuret Pep (0-900) pg/mL Serum Total Protein 6.0 L (6.3-8.2) g/dL Albumin 3.3 L (3.5-5.0) g/dL Influenza Type A Ag (NEGATIVE) Influenza Type B Ag (NEGATIVE) RSV (PCR) (Negative) Slides for Path Review Radiology Exams: Radiology Procedures Category Date Time Status CHEST 1 VIEW (PORTABLE) Stat Exams 08/30/18 10:40 Completed CHEST WITH CONTRAST [CT] Stat Exams 08/30/18 12:25 Completed Assessment/Plan (1) COPD with exacerbation Current Visit: Yes Status: Acute Assessment & Plan: He is on rocephin and zithromax, day #2. IV solumedrol 80mg q6h. Will make no changes as yet; air exchange is poor. Code(s): J44.1 - CHRONIC OBSTRUCTIVE PULMONARY DISEASE W (ACUTE) EXACERBATION (2) Diabetes mellitus Current Visit: No Status: Chronic Qualifiers: Diabetes mellitus type: type 2 Diabetes mellitus director long term care insulin use: without residential use Diabetes mellitus complication status: with unspecified complications Qualified Code(s): E11.8 - Type 2 diabetes mellitus with unspecified complications Code(s): E11.9 - TYPE 2 DIABETES MELLITUS WITHOUT COMPLICATIONS (3) End stage COPD Current Visit: No Status: Chronic Code(s): J44.9 - CHRONIC OBSTRUCTIVE PULMONARY DISEASE, UNSPECIFIED (4) Hx pulmonary embolism Current Visit: No Status: Chronic Assessment & Plan: on Eliquis Code(s): Z86.711 - PERSONAL HISTORY OF PULMONARY EMBOLISM (5) Chronic hypoxemic respiratory failure Current Visit: No Status: Chronic (6) DNR (do not resuscitate) Current Visit: No Status: Acute
[2018-08-31] MEDS: ROCEPHIN 1 Gm-D5w 50 ml Bag** 1 G/50 ML IVPB IV SCH (09:56)
[2018-08-31] MEDS ORDERED: NON-FORMULARY ITEM (Fluticasone/Umeclidin/Vilanter [Trelegy Ellipta 100-62.5-25] 1 PUFF) IH SCH (10:00)
[2018-08-31] MEDS: ELIQUIS 2.5 MG TABLET PO SCH ×2 (10:22→21:58)
[2018-08-31] MEDS: Zithromax 500 MG/ 250 ML NaCl Premix 500 MG/250 ML IVPB IV SCH (10:50)
[2018-08-31] MEDS: Protonix 40MG Tablet PO SCH ×2 (12:18→21:58)
[2018-08-31] MEDS: Norco 10/325 MG Tablet PO PRN (21:58)
[2018-08-31] MEDS: Pepcid 20 MG PO SCH (21:58)
[2018-08-31] MEDS: xanAX 0.5 MG PO PRN (21:58)
[2018-09-01] MEDS: DUONEB 0.5-3 MG/3 ml Neb IH SCH ×6 (03:27→23:04)
[2018-09-01] MEDS: Sodium Chloride 0.9% 1000 ML 1,000 ML IV SCH ×2 (04:54→17:31)
[2018-09-01] MEDS: solu-MEDROL 125 MG IV SCH ×3 (06:27→22:18)
[2018-09-01] MEDS: Advair Hfa 230/21 Mcg COMMON CANISTER IH SCH ×2 (07:31→19:10)
[2018-09-01] MEDS: Zithromax 500 MG/ 250 ML NaCl Premix 500 MG/250 ML IVPB IV SCH (09:16)
[2018-09-01] MEDS: ELIQUIS 2.5 MG TABLET PO SCH ×2 (09:18→22:16)
[2018-09-01] MEDS: Protonix 40MG Tablet PO SCH ×2 (09:18→22:17)
[2018-09-01] MEDS: NovoLOG Insulin SQ PRN ×2 (09:18→22:26)
[2018-09-01] MEDS: ROCEPHIN 1 Gm-D5w 50 ml Bag** 1 G/50 ML IVPB IV SCH (10:36)
[2018-09-01] MEDS: Norco 10/325 MG Tablet PO PRN (22:17)
[2018-09-01] MEDS: xanAX 0.5 MG PO PRN (22:17)
[2018-09-01] MEDS: Pepcid 20 MG PO SCH (22:17)
[2018-09-02] MEDS: DUONEB 0.5-3 MG/3 ml Neb IH SCH ×6 (03:05→23:48)
[2018-09-02] MEDS: solu-MEDROL 125 MG IV SCH (05:21)
[2018-09-02] MEDS: Advair Hfa 230/21 Mcg COMMON CANISTER IH SCH ×2 (07:29→19:17)
[2018-09-02] MEDS: NovoLOG Insulin SQ PRN ×4 (08:30→22:59)
[2018-09-02] MEDS: Protonix 40MG Tablet PO SCH ×2 (09:40→22:59)
[2018-09-02] MEDS: ROCEPHIN 1 Gm-D5w 50 ml Bag** 1 G/50 ML IVPB IV SCH (09:40)
[2018-09-02] MEDS: ELIQUIS 2.5 MG TABLET PO SCH ×2 (09:40→22:59)
[2018-09-02] MEDS ORDERED: PHARMACY DOSING REQUEST MC ONE (11:16)
[2018-09-02] MEDS: Zithromax 500 MG/ 250 ML NaCl Premix 500 MG/250 ML IVPB IV SCH (11:35)
[2018-09-02] MEDS: Sodium Chloride 0.9% 1000 ML 1,000 ML IV SCH (12:17)
[2018-09-02] MEDS: Zosyn 3.375GM/100 Ml D5W 3.375 GM/100 ML IVPB IV SCH ×3 (12:18→23:40)
[2018-09-02] MEDS: DELTASONE 20 MG PO SCH (12:18)
[2018-09-02] MEDS: xanAX 0.5 MG PO PRN (22:58)
[2018-09-02] MEDS: Pepcid 20 MG PO SCH (22:58)
[2018-09-02] MEDS: Norco 10/325 MG Tablet PO PRN (22:59)
[2018-09-03] MEDS: DUONEB 0.5-3 MG/3 ml Neb IH SCH ×6 (03:14→22:30)
[2018-09-03] MEDS: Advair Hfa 230/21 Mcg COMMON CANISTER IH SCH ×2 (06:36→17:55)
[2018-09-03] MEDS: Zosyn 3.375GM/100 Ml D5W 3.375 GM/100 ML IVPB IV SCH ×3 (06:39→18:34)
[2018-09-03] MEDS: NovoLOG Insulin SQ PRN ×4 (08:05→23:55)
--- NOTE | 2018-09-03 09:10 | PCM.NOTE ---
Date and Time: 09/03/18906 Subjective Assessment: Pt was found to have Pseudomonas on sputum culture so was changed to IV zosyn yesterday. Lucero po. Having regular BMs. - Review of Systems Constitutional: No Fever Respiratory: Cough Objective Exam General Appearance: no apparent distress, alert, thin Neurologic Exam: oriented x 3, cooperative Skin Exam: normal color, warm, dry, No rash Respiratory Exam: diminished breath sounds, prolonged expirations, rhonchi ( bilat bases), wheezing (scattered), No crackles/rales Cardiovascular Exam: regular rate/rhythm, normal heart sounds, No murmur Gastrointestinal/Abdomen Exam: soft, normal bowel sounds, distention, No tenderness, No mass, No guarding, No rebound Extremity Exam: normal inspection, No pedal edema, No swelling Back Exam: normal inspection, No rash OBJECTIVE DATA Vital Signs: Vital Signs - 24 hr Temp Pulse Resp BP Pulse Ox 09/03/18 06:57 98 F 86 22 171/80 95 09/03/18 06:45 86 18 98 09/03/18 04:00 98.2 F 85 20 161/76 98 09/03/18 03:14 85 20 98 09/03/18 00:00 98.0 F 80 20 180/80 98 09/02/18 23:48 98 09/02/18 20:00 98.3 F 85 20 157/77 98 09/02/18 19:15 80 14 98 09/02/18 16:00 98.3 F 86 20 150/76 97 09/02/18 15:15 85 24 98 09/02/18 12:00 98.2 F 90 24 131/62 95 09/02/18 11:33 80 18 98 Oxygen-Last 24 hours O2 Percentage 5 Liters = 40% O2 Percentage 5 Liters = 40% O2 Percentage 5 Liters = 40% O2 Percentage 5 Liters = 40% O2 Percentage 5 Liters = 40% Pain Assessment - Last Documented Pain Intensity 3 Pain Scale Used [facility] Intake and Output: Intake & Output 08/31/18 09/01/18 09/02/18 09/03/18 11:59 11:59 11:59 11:59 Intake Total 600 6191 2955 3306 Output Total 750 5598 217 0517 Balance -150 3126 2055 781 Weight 56.5 kg 59.8 kg 59.5 kg 59.6 kg Lab Results: Accuchecks Date 09/02/18 Date 09/02/18 Time 16:30 Time 11:30 Accucheck Value: 222 Accucheck Value: 296 Accucheck Value: 304 Assessment/Plan (1) COPD with exacerbation Current Visit: Yes Status: Acute Assessment & Plan: On a new antibiotic, day #2 of zosyn. Recommended he get it for at least 2 more days before discharge to home. He is on po prednisone. 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 insulin use: without snf use Diabetes mellitus complication status: with unspecified complications Qualified Code(s): E11.8 - Type 2 diabetes mellitus with unspecified complications Code(s): E11.9 - TYPE 2 DIABETES MELLITUS WITHOUT COMPLICATIONS (3) End stage COPD Current Visit: No Status: Chronic Code(s): J44.9 - CHRONIC OBSTRUCTIVE PULMONARY DISEASE, UNSPECIFIED (4) Hx pulmonary embolism Current Visit: No Status: Chronic Assessment & Plan: on Eliquis Code(s): Z86.711 - PERSONAL HISTORY OF PULMONARY EMBOLISM (5) Chronic hypoxemic respiratory failure Current Visit: No Status: Chronic (6) DNR (do not resuscitate) Current Visit: No Status: Acute
[2018-09-03] MEDS: DELTASONE 20 MG PO SCH (10:39)
[2018-09-03] MEDS: Protonix 40MG Tablet PO SCH ×2 (10:40→22:52)
[2018-09-03] MEDS: ELIQUIS 2.5 MG TABLET PO SCH ×2 (10:40→22:52)
[2018-09-03] MEDS: Pepcid 20 MG PO SCH (22:52)
[2018-09-03] MEDS: Sodium Chloride 0.9% 1000 ML 1,000 ML IV SCH (22:53)
[2018-09-04] MEDS: Zosyn 3.375GM/100 Ml D5W 3.375 GM/100 ML IVPB IV SCH ×5 (00:01→23:50)
[2018-09-04] MEDS: DUONEB 0.5-3 MG/3 ml Neb IH SCH ×6 (02:20→23:19)
[2018-09-04] MEDS: Advair Hfa 230/21 Mcg COMMON CANISTER IH SCH ×2 (06:28→17:41)
--- NOTE | 2018-09-04 09:00 | PCM.NOTE ---
Date and Time: 09/04/18854 Subjective Assessment: Pt had a rough day yesterday and last night with increased SOB. Last BM 2 days ago. - Review of Systems Constitutional: No Fever Respiratory: Cough, Short Of Breath Abdominal/Gastrointestinal: Constipation Objective Exam General Appearance: no apparent distress, alert Neurologic Exam: oriented x 3, cooperative Skin Exam: normal color, warm, dry, No rash Respiratory Exam: diminished breath sounds (poor air exchange), prolonged expirations, rhonchi (bilat bases, L>R), wheezing (scattered throughout), No crackles/rales Cardiovascular Exam: regular rate/rhythm, normal heart sounds, No murmur Gastrointestinal/Abdomen Exam: soft, normal bowel sounds, tenderness (suprapubic ), distention, No mass, No guarding, No rebound Extremity Exam: No pedal edema, No swelling Back Exam: normal inspection, No rash OBJECTIVE DATA Vital Signs: Vital Signs - 24 hr Temp Pulse Resp BP Pulse Ox 09/04/18 07:00 97.8 F 73 20 164/86 99 09/04/18 06:31 72 20 98 09/04/18 03:58 98.5 F 76 18 146/76 98 09/04/18 02:20 77 18 98 09/04/18 00:00 98.7 F 82 18 177/85 98 09/03/18 22:31 78 20 99 09/03/18 20:00 98.8 F 87 18 125/66 96 09/03/18 17:58 89 18 99 09/03/18 16:46 98 F 82 20 145/71 99 09/03/18 16:00 18 09/03/18 15:04 77 18 98 09/03/18 12:22 98.2 F 80 20 125/75 95 09/03/18 12:00 18 09/03/18 11:08 88 20 98 Oxygen-Last 24 hours O2 Percentage 5 Liters = 40% O2 Percentage 5 Liters = 40% O2 Percentage 5 Liters = 40% O2 Percentage 5 Liters = 40% O2 Percentage 5 Liters = 40% O2 Percentage 5 Liters = 40% Pain Assessment - Last Documented Pain Intensity 3 Pain Scale Used [facility] Intake and Output: Intake & Output 09/01/18 09/02/18 09/03/18 09/04/18 11:59 11:59 11:59 11:59 Intake Total 4551 2955 3306 1348 Output Total 0782 420 7054 1700 Balance 6252 8333 495 -611 Weight 59.8 kg 59.5 kg 59.6 kg 59.5 kg Lab Results: Accuchecks Date 09/03/18 Date 09/03/18 Date 09/03/18 Time 21:00 Time 16:30 Time 11:30 Accucheck Value: 217 Assessment/Plan (1) COPD with exacerbation Current Visit: Yes Status: Acute Assessment & Plan: On day #3 zosyn. Will keep for another day or two, until he is feeling a little better. change prednisone po back to solumedrol IV, start at 40mg TID. 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 Diabetes mellitus complication status: with unspecified complications Qualified Code(s): E11.8 - Type 2 diabetes mellitus with unspecified complications Assessment & Plan: add 10 units lantus daily Code(s): E11.9 - TYPE 2 DIABETES MELLITUS WITHOUT COMPLICATIONS (3) End stage COPD Current Visit: No Status: Chronic Code(s): J44.9 - CHRONIC OBSTRUCTIVE PULMONARY DISEASE, UNSPECIFIED (4) Hx pulmonary embolism Current Visit: No Status: Chronic Assessment & Plan: on Eliquis Code(s): Z86.711 - PERSONAL HISTORY OF PULMONARY EMBOLISM (5) Chronic hypoxemic respiratory failure Current Visit: No Status: Chronic (6) DNR (do not resuscitate) Current Visit: No Status: Chronic
[2018-09-04] MEDS: ELIQUIS 2.5 MG TABLET PO SCH ×2 (11:02→23:09)
[2018-09-04] MEDS: solu-MEDROL 40 MG IV SCH ×3 (11:02→23:08)
[2018-09-04] MEDS: Lantus Insulin SQ SCH (11:03)
[2018-09-04] MEDS: Protonix 40MG Tablet PO SCH ×2 (11:03→23:09)
[2018-09-04] MEDS: NovoLOG Insulin SQ PRN (15:00)
[2018-09-04] MEDS: Pepcid 20 MG PO SCH (23:10)
[2018-09-04] MEDS: xanAX 0.5 MG PO PRN (23:12)
[2018-09-04] MEDS: Norco 10/325 MG Tablet PO PRN (23:13)
[2018-09-05] MEDS: DUONEB 0.5-3 MG/3 ml Neb IH SCH ×6 (03:03→23:30)
[2018-09-05] MEDS: Zosyn 3.375GM/100 Ml D5W 3.375 GM/100 ML IVPB IV SCH ×3 (06:19→17:00)
[2018-09-05] MEDS: Advair Hfa 230/21 Mcg COMMON CANISTER IH SCH ×2 (06:43→20:06)
[2018-09-05] MEDS: NovoLOG Insulin SQ PRN ×5 (07:43→22:07)
[2018-09-05] MEDS ORDERED: APRESOLINE 20 MG/ML INJ IV PRN (08:49)
--- NOTE | 2018-09-05 08:53 | PCM.NOTE ---
Date and Time: 09/05/18 0850 Subjective Assessment: Pt's steroid changed back to IV yesterday and feeling better. Lucero po. Would like to go home. - Review of Systems Constitutional: No Fever Respiratory: Cough, Short Of Breath Objective Exam General Appearance: no apparent distress, alert Neurologic Exam: oriented x 3, cooperative Skin Exam: normal color, warm, dry, No rash Eye Exam: eyes nml inspection Ears, Nose, Throat Exam: moist mucous membranes Respiratory Exam: diminished breath sounds (fair air exchange), prolonged expirations, rhonchi (LLL), wheezing (slight, scattered), No crackles/rales Cardiovascular Exam: regular rate/rhythm, normal heart sounds, No murmur Gastrointestinal/Abdomen Exam: soft, normal bowel sounds, distention, No tenderness Extremity Exam: normal inspection, No pedal edema, No swelling Back Exam: normal inspection, No rash OBJECTIVE DATA Vital Signs: Vital Signs - 24 hr Temp Pulse Resp BP Pulse Ox 09/05/18 07:47 18 09/05/18 07:22 75 14 99 09/05/18 07:20 97.8 F 68 20 160/85 97 09/05/18 04:40 97.6 F 69 21 153/76 98 09/05/18 04:00 20 09/05/18 03:03 69 21 98 09/05/18 00:28 97.9 F 79 21 132/80 98 09/05/18 00:00 20 09/04/18 23:19 87 20 98 09/04/18 21:37 98.4 F 76 21 183/96 94 L 09/04/18 20:00 21 09/04/18 17:43 90 20 94 L 09/04/18 16:00 20 09/04/18 15:56 97.6 F 85 19 182/87 96 09/04/18 15:00 97.6 F 85 19 182/87 96 09/04/18 14:12 85 20 96 09/04/18 12:00 20 09/04/18 11:00 97.9 F 85 19 156/76 95 09/04/18 10:49 86 20 98 Oxygen-Last 24 hours O2 Percentage 5 Liters = 40% O2 Percentage 5 Liters = 40% O2 Percentage 5 Liters = 40% O2 Percentage 5 Liters = 40% O2 Percentage 5 Liters = 40% O2 Percentage 5 Liters = 40% O2 Percentage 5 Liters = 40% Pain Assessment - Last Documented Pain Intensity 4 Pain Scale Used [facility] Intake and Output: Intake & Output 09/02/18 09/03/18 09/04/18 09/05/18 11:59 11:59 11:59 11:59 Intake Total 2955 3306 1588 2046 Output Total 900 2525 3100 1745 Balance 2055 781 -1512 301 Weight 59.5 kg 59.6 kg 59.5 kg 59.8 kg Lab Results: Accuchecks Date 09/05/18 Date 09/04/18 Date 09/04/18 Date 09/04/18 Time 07:30 Time 21:00 Time 16:30 Time 11:30 Accucheck Value: 256 Accucheck Value: 361 Accucheck Value: 227 Accucheck Value: 280 Assessment/Plan (1) COPD with exacerbation Current Visit: Yes Status: Acute Assessment & Plan: Doing better, but steroids were increased. Will decrease to 40mg IV q12h today , then plan back to 60mg po tomorrow. If he does well on that, he may be able to d/c home tomorrow or the next day. Code(s): J44.1 - CHRONIC OBSTRUCTIVE PULMONARY DISEASE W (ACUTE) EXACERBATION (2) Diabetes mellitus Current Visit: No Status: Chronic Qualifiers: Diabetes mellitus type: type 2 Diabetes mellitus residential insulin use: without technician terminal and repeater use Diabetes mellitus complication status: with unspecified complications Qualified Code(s): E11.8 - Type 2 diabetes mellitus with unspecified complications Assessment & Plan: BS higher, predictably, on higher steroid dose. Decreasing as above. Code(s): E11.9 - TYPE 2 DIABETES MELLITUS WITHOUT COMPLICATIONS (3) End stage COPD Current Visit: No Status: Chronic Code(s): J44.9 - CHRONIC OBSTRUCTIVE PULMONARY DISEASE, UNSPECIFIED (4) Hx pulmonary embolism Current Visit: No Status: Chronic Assessment & Plan: on Eliquis Code(s): Z86.711 - PERSONAL HISTORY OF PULMONARY EMBOLISM (5) Chronic hypoxemic respiratory failure Current Visit: No Status: Chronic (6) DNR (do not resuscitate) Current Visit: No Status: Chronic
[2018-09-05] MEDS: NORVASC 5 MG PO SCH (09:50)
[2018-09-05] MEDS: Protonix 40MG Tablet PO SCH ×2 (09:50→22:08)
[2018-09-05] MEDS: ELIQUIS 2.5 MG TABLET PO SCH ×2 (09:50→22:08)
[2018-09-05] MEDS: solu-MEDROL 40 MG IV SCH ×2 (09:51→22:09)
[2018-09-05] MEDS: Lantus Insulin SQ SCH (09:51)
[2018-09-05] MEDS: Sodium Chloride 0.9% 1000 ML 1,000 ML IV SCH (19:34)
[2018-09-05] MEDS: xanAX 0.5 MG PO PRN (22:08)
[2018-09-05] MEDS: Pepcid 20 MG PO SCH (22:08)
[2018-09-05] MEDS: Norco 10/325 MG Tablet PO PRN (22:08)
[2018-09-06] MEDS: DUONEB 0.5-3 MG/3 ml Neb IH SCH ×2 (03:13→06:46)
[2018-09-06] MEDS: Zosyn 3.375GM/100 Ml D5W 3.375 GM/100 ML IVPB IV SCH ×2 (05:28)
[2018-09-06 06:23] LABS: Hematocrit 34.3 % (42-50); Hemoglobin 10.6 gm/dl (12.5-18.0); Mean Corpuscular Hgb Concent. 30.9 g/dl (32-36); Mean Platelet Volume 8.6 fl (6-9.5); Platelet Count 254 K/mm3 (150-450); Red Blood Count 3.65 M/mm3 (4.1-5.6); Red Cell Distribution Width 13.7 % (11.5-14.0); White Blood Count 12.9 K/mm3 (4.0-10.5)
[2018-09-06 06:30] LABS: BLOOD UREA NITROGEN 20 mg/dL (9-20); CHLORIDE 102 mmol/L (98-107); Calcium 8.7 mg/dL (8.4-10.2); Carbon Dioxide 33 mmol/L (22-30); Creatinine 1 0.74 mg/dL (0.66-1.25); Glucose 258 mg/dL (74-106); Potassium 4.6 mmol/L (3.5-5.1); SODIUM 139 mmol/L (137-145)
[2018-09-06] MEDS: Advair Hfa 230/21 Mcg COMMON CANISTER IH SCH (06:47)
[2018-09-06 07:24] VITALS: BP 133/72
[2018-09-06 07:37] VITALS: PULSE 71; O2SAT 99
[2018-09-06 07:44] LABS: BAND 2 % (0.0-2.0); Lymphocytes 4 % (24-44); Monocyte 2 % (0.0-12.0); Neutrophils 92 % (36.-66.); Platelet Estimate NORMAL (NORMAL); Total Cells Counted 100
--- NOTE | 2018-09-06 08:17 | PCM.DS ---
Discharge Summary Date of Admission: 08/30/18 14:40 Admitting Physician: IBETH JAEGER Primary Care Provider: IBETH JAEGER Allergies Allergies No Known Drug Allergies Allergy (Verified 08/30/18 14:49) Hospital Summary - Hospital Course Hospital Course: Pt is 68 yo male pt of Dr. Jaeger with end stage COPD, well known to me, who was admitted through ER with COPD exacerbation. His CXR and CT chest were non acute (neg for PE). He was started on IV zithromax and rocephin but when his sputum culture returned pseudomonas, he was changed to IV zosyn (today is day #5 ). He was feeling much better, then his steroids were decreased to po prednisone and his breathing was worse. Resumed the IV steroids at a lower dose (40mg IV TID) with improvement; yesterday he received 40mg IV BID and will be sent home today on prednisone po. Renal function normal. AFter receiving IV fluids his hgb has been stable at around 10.5. BS elevated, particularly when IV steroids were resumed (mid 200s) - I expect them to decrease as steroids decrease. Home on 10 units lantus once daily until BS decrease [id number]. BP were elevated here; amlodipine 5mg added. - Vitals & Intake/Output Vital Signs: Vital Signs Temperature 98.4 F 09/06/18 07:00 Pulse Rate 71 09/06/18 07:34 Respiratory Rate 18 09/06/18 07:34 Blood Pressure 133/72 09/06/18 07:00 O2 Sat by Pulse Oximetry 99 09/06/18 07:34 Oxygen-Last Documented O2 Percentage 5 Liters = 40% Intake & Output: Intake & Output 09/03/18 09/04/18 09/05/18 09/06/18 11:59 11:59 11:59 11:59 Intake Total 3306 1588 2406 2570 Output Total 2525 3100 1945 1430 Balance 781 -4581 295 0393 Weight 59.6 kg 59.5 kg 59.8 kg 60 kg - Lab Result Diagrams: 09/06/18 05:27 09/06/18 05:27 Lab Results-Last 24 Hrs: Accuchecks Date 09/05/18 Date 09/05/18 Date 09/05/18 Time 22:00 Time 16:30 Time 11:30 Accucheck Value: 245 Accucheck Value: 302 Accucheck Value: 276 Lab Results-Last 24 Hours 09/06/18 09/06/18 Range/Units 05:27 05:27 WBC 12.9 H (4.0-10.5) K/mm3 RBC 3.65 L (4.1-5.6) M/mm3 Hgb 10.6 L (12.5-18.0) gm/dl Hct 34.3 L (42-50) % MCV 94.0 (78-100) fl MCH 29.0 (26-32) pg MCHC 30.9 L (32-36) g/dl RDW 13.7 (11.5-14.0) % Plt Count 254 (150-450) K/mm3 MPV 8.6 (6-9.5) fl Segmented Neutrophils 92 H (36.-66.) % Band Neutrophils 2 (0.0-2.0) % Lymphocytes (Manual) 4 L (24-44) % Monocytes (Manual) 2 (0.0-12.0) % Platelet Estimate NORMAL (NORMAL) RBC Morphology NORMAL Sodium 139 (137-145) mmol/L Potassium 4.6 (3.5-5.1) mmol/L Chloride 102 (98-107) mmol/L Carbon Dioxide 33 H (22-30) mmol/L Anion Gap 8.0 (5-15) MEQ/L BUN 20 (9-20) mg/dL Creatinine 0.74 (0.66-1.25) mg/dL Estimated GFR > 60.0 ML/MIN Glucose 258 H (74-106) mg/dL Calcium 8.7 (8.4-10.2) mg/dL Micro Results-Entire Visit: Microbiology 08/30/18 11:45 Blood Culture Gram Stain - Final Blood Not Reportable Blood Culture - Final NO GROWTH 08/30/18 11:20 Blood Culture Gram Stain - Final Blood Not Reportable Blood Culture - Final NO GROWTH 08/31/18 06:24 Gram Stain - Final Sputum - Expectorant Sputum Culture - Final Pseudomonas Aeruginosa Accuchecks Date 09/05/18 Date 09/05/18 Date 09/05/18 Time 22:00 Time 16:30 Time 11:30 Accucheck Value: 245 Accucheck Value: 302 Accucheck Value: 276 - Procedures and Test Procedures and Tests throughout Hospitalization: Therapy Orders & Screens 08/30/18 11:04 Peak Expiratory Flow Rate ONCE Comment: Reason For Exam: Diagnosis: Shortness of Breath Respiratory Therapy Assessment DAILY Comment: Diagnosis: Shortness of Breath 08/30/18 14:46 Oxygen Nasal Cannula 5 lpm Comment: Diagnosis: Shortness of Breath 08/30/18 15:20 Smoking Cessation Education ONCE Comment: Diagnosis: Shortness of Breath Smoking Status: Current every day smoker How long have you smoked: 40 Have you smoked in the past 12 months: No Approximately how many cigarettes per day: 40 Do you dip or chew tobacco: No If,Former Smoker,when did you quit: 3 years ago 08/30/18 15:56 Peak Expiratory Flow Rate ONCE Comment: Reason For Exam: Diagnosis: Shortness of Breath 08/30/18 16:04 Respiratory Therapy Assessment DAILY Comment: Diagnosis: Shortness of Breath 08/30/18 17:30 Respiratory MDI BID Comment: Diagnosis: Shortness of Breath Discharge Exam General Appearance: no apparent distress, alert Neurologic Exam: oriented x 3, cooperative Skin Exam: normal color, warm, dry, No rash Respiratory Exam: diminished breath sounds (fair to good air exchange), rhonchi (faint RLL), wheezing (faint scattered), No crackles/rales Cardiovascular Exam: regular rate/rhythm, normal heart sounds, No murmur Gastrointestinal/Abdomen Exam: soft, normal bowel sounds, distention, No tenderness Extremity Exam: normal inspection, No pedal edema, No swelling Final Diagnosis/Problem List - Final Discharge Diagnosis/Problem (1) COPD with exacerbation Current Visit: Yes Status: Acute Assessment & Plan: Doing much better. Pseudomonas. Home on PO levaquin to finish 10d total (5 more days). Prednisone with BID dosing. Code(s): J44.1 - CHRONIC OBSTRUCTIVE PULMONARY DISEASE W (ACUTE) EXACERBATION (2) Diabetes mellitus Current Visit: No Status: Chronic Assessment & Plan: Expect BS to decrease as steroids decrease. started lantus daily 10u Code(s): E11.9 - TYPE 2 DIABETES MELLITUS WITHOUT COMPLICATIONS (3) End stage COPD Current Visit: No Status: Chronic Code(s): J44.9 - CHRONIC OBSTRUCTIVE PULMONARY DISEASE, UNSPECIFIED (4) Hx pulmonary embolism Current Visit: No Status: Chronic Assessment & Plan: on Eliquis Code(s): Z86.711 - PERSONAL HISTORY OF PULMONARY EMBOLISM (5) Chronic hypoxemic respiratory failure Current Visit: No Status: Chronic (6) DNR (do not resuscitate) Current Visit: No Status: Chronic (7) Hypertension Current Visit: Yes Status: Acute Assessment & Plan: amlodipine added Code(s): I10 - ESSENTIAL (PRIMARY) HYPERTENSION - Discharge Disposition: Home, Self-Care Condition: Stable Prescriptions: New Prednisone 10 mg [Deltasone 10 mg] 10 mg PO BID #34 tablet Insulin Glargine [Lantus Insulin] 10 unit SQ QAM #1 pen Levofloxacin [Levaquin] 500 mg PO DAILY #6 tablet Amlodipine Besylate 5 mg [Norvasc 5 mg] 5 mg PO QAM #30 tablet Continue Apixaban [Eliquis 5 mg Tablet] 5 mg PO BID Ipratropium/Albuterol Sulfate [Iprat-Albut 0.5-3(2.5) mg/3 ml] 3 ml IH Q4H Alprazolam 0.5 mg PO HS PRN PRN #30 tablet PRN Reason: Anxiety Hydrocodone/APAP 10/325 mg [[place] 10/325 MG Tablet] 1 tab PO Q4H PRN PRN PRN Reason: Pain Fluticasone/Umeclidin/Vilanter [Trelegy Ellipta 100-62.5-25] 1 puff IH DAILY Prednisone 20 mg [Deltasone 20 mg] 20 mg PO DAILY #30 tablet Metformin HCl 500 mg [Glucophage 500 MG] 500 mg PO BID #60 tablet PANTOPRAZOLE 40 mg Tablet [Protonix 40MG Tablet] 40 mg PO BID Follow up with: IBETH JAEGER MD [Primary Care Provider] - 1 Week
[2018-09-06] MEDS: NORVASC 5 MG PO SCH (08:36)
[2018-09-06] MEDS: Lantus Insulin SQ SCH (08:36)
[2018-09-06] MEDS: Protonix 40MG Tablet PO SCH (08:36)
[2018-09-06] MEDS: ELIQUIS 2.5 MG TABLET PO SCH (08:36)
[2018-09-06] MEDS: NovoLOG Insulin SQ PRN (08:37)
[2018-09-06] MEDS: solu-MEDROL 40 MG IV SCH (10:47)
== END 2018-09-06 10:48 | disposition home or self-care (01) | DRG 191 ==
LOC: ED 09:52 → OBSVTOIN 14:40 → MED SURG 14:40
PROVIDERS: ADMIT Family Medicine; ATTEND Family Medicine
DX: J44.1 Chronic obstructive pulmonary disease with (acute) exacerbation (principal); J96.11 Chronic respiratory failure with hypoxia; B96.5 Pseudomonas (aeruginosa) (mallei) (pseudomallei) as the cause of diseases classified elsewhere; E11.9 Type 2 diabetes mellitus without complications; Z86.711 Personal history of pulmonary embolism; I10 Essential (primary) hypertension; Z79.4 Long term (current) use of insulin; Z79.899 Other long term (current) drug therapy; J60 Coalworker's pneumoconiosis
CPT/HCPCS: 36415; 71045; 71260; 80048; 80053; 82805; 82962; 83605; 83880; 84484; 85025; 85379; 85610; 85730; 87040; 87070; 87186; 87631; 93005; 93041; 94150; 94640; 94760; 94762; 96360; 96361; 96365; 96374; 99285; J0456; J0696; J2543; J2920; J2930; J7609; A9270-GY

== ENCOUNTER 2018-10-22 15:29 | Inpatient (IN) | payer BLACK LUNG, MEDICARE, OTHER ==
[2018-10-22] MEDS: Sodium Chloride 0.9% 1000 ML 1,000 ML IV SCH (16:16)
[2018-10-22] MEDS: ROCEPHIN 1 Gm-D5w 50 ml Bag** 1 G/50 ML IVPB IV SCH (16:22)
[2018-10-22 16:42] LABS: BASOPHIL % 0.1 % (0.0-0.4); Basophil (Absolute #) 0.01 (0-0.4); Eosinophil % 0.1 % (0.00-5.0); Eosinophil (Absolute #) 0.01 (0-0.5); Granulocyte Absolute (ANC) 15.46 (1.4-6.9); Granulocytes % 88.8 % (36.0-66.0); Hematocrit 38.2 % (42-50); Hemoglobin 12.2 gm/dl (12.5-18.0); Lymphocyte (Absolute #) 0.83 (1.0-4.6); Lymphocytes % 4.8 % (24.0-44.0); Mean Cell Volume 93.6 fl (78-100); Mean Corpuscular Hemoglobin 29.9 pg (26-32); Mean Corpuscular Hgb Concent. 31.9 g/dl (32-36); Mean Platelet Volume 8.8 fl (6-9.5); Monocyte (Absolute #) 1.07 (0.0-1.3); Monocytes % 6.2 % (0.0-12.0); Platelet Count 248 K/mm3 (150-450); Red Blood Count 4.08 M/mm3 (4.1-5.6); Red Cell Distribution Width 14.2 % (11.5-14.0); White Blood Count 17.4 K/mm3 (4.0-10.5)
[2018-10-22 16:52] LABS: ALBUMIN 3.8 g/dL (3.5-5.0); ALKALINE PHOSPHATASE 63 U/L (38-126); ANION GAP 14.4 MEQ/L (5-15); BLOOD UREA NITROGEN 32 mg/dL (9-20); CHLORIDE 101 mmol/L (98-107); Calcium 9.4 mg/dL (8.4-10.2); Carbon Dioxide 27 mmol/L (22-30); Creatinine 1 0.77 mg/dL (0.66-1.25); Glucose 205 mg/dL (74-106); Potassium 4.6 mmol/L (3.5-5.1); SGOT/AST 17 U/L (17-59); SGPT/ALT 17 U/L (0-50); SODIUM 138 mmol/L (137-145); Total Protein 6.8 g/dL (6.3-8.2)
[2018-10-22 17:09] LABS: NT PRO BNP 275 pg/mL (0-900)
[2018-10-22 17:10] LABS: TROPONIN < 0.012 ng/mL (0.000-0.034)
[2018-10-22] MEDS: solu-MEDROL 125 MG IV SCH (17:11)
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
[2018-10-22 17:55] LABS: Appearance CLEAR (CLEAR); Bacteria RARE /HPF (NEGATIVE); Bilirubin NEGATIVE (NEGATIVE); Blood NEGATIVE Ery/ul (0-5); Epithelial Cells RARE /HPF (FEW); Glucose 50 mg/dL (NEGATIVE); Hyaline Casts 0-2 /LPF (0-2); Ketones NEGATIVE (NEGATIVE); Leukocyte Esterase NEGATIVE (NEGATIVE); Mucus SLIGHT /HPF (NEGATIVE); Nitrite NEGATIVE (NEGATIVE); Protein,Urine Dip NEGATIVE (Negative); Specific Gravity 1.021 (1.005-1.025); Urobilinogen NEGATIVE mg/dL (0-1)
[2018-10-22] MEDS: NovoLOG Insulin SQ PRN ×2 (18:00→21:31)
[2018-10-22] MEDS ORDERED: Norco 10/325 MG Tablet PO PRN (18:35)
[2018-10-22] MEDS ORDERED: DUONEB 0.5-3 MG/3 ml Neb IH SCH (19:00)
[2018-10-22] MEDS: DUONEB 0.5-3 MG/3 ml Neb IH SCH ×2 (19:03→22:40)
[2018-10-22] MEDS: ELIQUIS 2.5 MG TABLET PO SCH (21:31)
[2018-10-22] MEDS: xanAX 0.5 MG PO PRN (21:32)
[2018-10-22] MEDS: Protonix 40MG Tablet PO SCH (21:32)
[2018-10-23] MEDS: solu-MEDROL 125 MG IV SCH ×4 (00:10→21:55)
[2018-10-23] MEDS: DUONEB 0.5-3 MG/3 ml Neb IH SCH ×6 (03:12→23:51)
[2018-10-23] MEDS: Sodium Chloride 0.9% 1000 ML 1,000 ML IV SCH ×3 (03:20→23:17)
[2018-10-23] MEDS ORDERED: DUONEB 0.5-3 MG/3 ml Neb IH PRN (07:43)
--- NOTE | 2018-10-23 08:36 | XRAY ---
Indication: COPD. Comparison: August 30, 2018. PA/lateral chest demonstrates mild right lung base clearing. Otherwise stable COPD, right lung postsurgical changes, bilateral scattered fibrosis/scarring, bibasilar pleural effusions/thickening, osteopenia/degenerative changes, and old left rib fractures. Heart is not enlarged. No new abnormalities.
--- NOTE | 2018-10-23 08:45 | PCM.NOTE ---
Date and Time: 10/23/18 0843 Subjective Assessment: Pt is feeling much better. Cough is better. Lucero po. - Review of Systems Constitutional: No Fever Respiratory: Cough, Short Of Breath Objective Exam General Appearance: no apparent distress, alert, cachetic Neurologic Exam: oriented x 3, cooperative Skin Exam: normal color, warm, dry, No rash Respiratory Exam: diminished breath sounds (fair air exchange), rhonchi ( scattered), No crackles/rales, No wheezing Cardiovascular Exam: regular rate/rhythm, normal heart sounds, No murmur Gastrointestinal/Abdomen Exam: soft, normal bowel sounds, distention, No tenderness Extremity Exam: normal inspection, No pedal edema, No swelling OBJECTIVE DATA Vital Signs: Vital Signs - 24 hr Temp Pulse Resp BP Pulse Ox 10/23/18 07:40 98 F 86 20 138/80 96 10/23/18 06:03 74 18 97 10/23/18 04:00 97.5 F 81 18 113/67 97 10/23/18 03:44 81 18 98 10/23/18 00:00 97.9 F 70 16 105/64 99 10/22/18 22:42 75 18 98 10/22/18 20:00 98.8 F 83 18 111/64 98 10/22/18 18:18 98 10/22/18 18:15 95 H 22 98 10/22/18 15:50 98.0 F 71 22 136/74 5 L Oxygen-Last 24 hours O2 Percentage 6 Liters = 44% O2 Percentage 6 Liters = 44% O2 Percentage 6 Liters = 44% O2 Percentage 5 Liters = 40% Pain Assessment - Last Documented Pain Intensity 3 Pain Scale Used 0-10 Pain Scale,FLACC Intake and Output: Intake & Output 10/20/18 10/21/18 10/22/18 10/23/18 11:59 11:59 11:59 11:59 Intake Total 2856 Output Total 1300 Balance 1556 Weight 49.7 kg Lab Results: Accuchecks Date 10/22/18 Date 10/22/18 Time 22:00 Time 16:30 Accucheck Value: 256 Accucheck Value: 242 Lab Results-Last 24 Hours 10/22/18 10/22/18 10/22/18 Range/Units 16:30 16:38 16:38 WBC 17.4 H (4.0-10.5) K/mm3 RBC 4.08 L (4.1-5.6) M/mm3 Hgb 12.2 L (12.5-18.0) gm/dl Hct 38.2 L (42-50) % MCV 93.6 (78-100) fl MCH 29.9 (26-32) pg MCHC 31.9 L (32-36) g/dl RDW 14.2 H (11.5-14.0) % Plt Count 248 (150-450) K/mm3 MPV 8.8 (6-9.5) fl Gran % 88.8 H (36.0-66.0) % Eos # (Auto) 0.01 (0-0.5) Absolute Lymphs (auto) 0.83 L (1.0-4.6) Absolute Monos (auto) 1.07 (0.0-1.3) Lymphocytes % 4.8 L (24.0-44.0) % Monocytes % 6.2 (0.0-12.0) % Eosinophils % 0.1 (0.00-5.0) % Basophils % 0.1 (0.0-0.4) % Absolute Granulocytes 15.46 H (1.4-6.9) Basophils # 0.01 (0-0.4) Sodium (137-145) mmol/L Potassium (3.5-5.1) mmol/L Chloride (98-107) mmol/L Carbon Dioxide (22-30) mmol/L Anion Gap (5-15) MEQ/L BUN (9-20) mg/dL Creatinine (0.66-1.25) mg/dL Estimated GFR ML/MIN Glucose (74-106) mg/dL Hemoglobin A1c 7.82 H (4.5-6.0) % Calcium (8.4-10.2) mg/dL Total Bilirubin (0.2-1.3) mg/dL AST (17-59) U/L ALT (0-50) U/L Alkaline Phosphatase (38-126) U/L Troponin I < 0.012 (0.000-0.034) ng/mL NT-Pro-B Natriuret Pep 275 (0-900) pg/mL Serum Total Protein (6.3-8.2) g/dL Albumin (3.5-5.0) g/dL Urine Color (YELLOW) Urine Appearance (CLEAR) Urine pH (5-6) Ur Specific Weston (1.005-1.025) Urine Protein (Negative) Urine Ketones (NEGATIVE) Urine Blood (0-5) Yash/ul Urine Nitrite (NEGATIVE) Urine Bilirubin (NEGATIVE) Urine Urobilinogen (0-1) mg/dL Ur Leukocyte Esterase (NEGATIVE) Urine WBC (Auto) (0-5) /HPF Urine RBC (Auto) (0-2) /HPF U Hyaline Cast (Auto) (0-2) /LPF U Epithel Cells (Auto) (FEW) /HPF Urine Bacteria (Auto) (NEGATIVE) /HPF Urine Mucus (Auto) (NEGATIVE) /HPF Urine Glucose (NEGATIVE) mg/dL 10/22/18 10/22/18 Range/Units 16:38 17:39 WBC (4.0-10.5) K/mm3 RBC (4.1-5.6) M/mm3 Hgb (12.5-18.0) gm/dl Hct (42-50) % MCV (78-100) fl MCH (26-32) pg MCHC (32-36) g/dl RDW (11.5-14.0) % Plt Count (150-450) K/mm3 MPV (6-9.5) fl Gran % (36.0-66.0) % Eos # (Auto) (0-0.5) Absolute Lymphs (auto) (1.0-4.6) Absolute Monos (auto) (0.0-1.3) Lymphocytes % (24.0-44.0) % Monocytes % (0.0-12.0) % Eosinophils % (0.00-5.0) % Basophils % (0.0-0.4) % Absolute Granulocytes (1.4-6.9) Basophils # (0-0.4) Sodium 138 (137-145) mmol/L Potassium 4.6 (3.5-5.1) mmol/L Chloride 101 (98-107) mmol/L Carbon Dioxide 27 (22-30) mmol/L Anion Gap 14.4 (5-15) MEQ/L BUN 32 H (9-20) mg/dL Creatinine 0.77 (0.66-1.25) mg/dL Estimated GFR > 60.0 ML/MIN Glucose 205 H (74-106) mg/dL Hemoglobin A1c (4.5-6.0) % Calcium 9.4 (8.4-10.2) mg/dL Total Bilirubin 0.50 (0.2-1.3) mg/dL AST 17 (17-59) U/L ALT 17 (0-50) U/L Alkaline Phosphatase 63 (38-126) U/L Troponin I (0.000-0.034) ng/mL NT-Pro-B Natriuret Pep (0-900) pg/mL Serum Total Protein 6.8 (6.3-8.2) g/dL Albumin 3.8 (3.5-5.0) g/dL Urine Color YELLOW (YELLOW) Urine Appearance CLEAR (CLEAR) Urine pH 6.0 (5-6) Ur Specific Weston 1.021 (1.005-1.025) Urine Protein NEGATIVE (Negative) Urine Ketones NEGATIVE (NEGATIVE) Urine Blood NEGATIVE (0-5) Yash/ul Urine Nitrite NEGATIVE (NEGATIVE) Urine Bilirubin NEGATIVE (NEGATIVE) Urine Urobilinogen NEGATIVE (0-1) mg/dL Ur Leukocyte Esterase NEGATIVE (NEGATIVE) Urine WBC (Auto) 6-10 (0-5) /HPF Urine RBC (Auto) 3-5 (0-2) /HPF U Hyaline Cast (Auto) 0-2 (0-2) /LPF U Epithel Cells (Auto) RARE (FEW) /HPF Urine Bacteria (Auto) RARE (NEGATIVE) /HPF Urine Mucus (Auto) SLIGHT (NEGATIVE) /HPF Urine Glucose 50 (NEGATIVE) mg/dL Radiology Exams: Radiology Procedures Category Date Time Status CHEST 2 VIEWS (PA AND LAT) Routine Exams 10/22/18 17:42 Completed Assessment/Plan (1) COPD with exacerbation Current Visit: No Status: Acute Assessment & Plan: Doing much better! Will start decreasing steroid slowly. On rocephin IV day # 2. Code(s): J44.1 - CHRONIC OBSTRUCTIVE PULMONARY DISEASE W (ACUTE) EXACERBATION (2) Black lung Current Visit: No Status: Chronic Code(s): J60 - COALWORKER'S PNEUMOCONIOSIS (3) Diabetes mellitus Current Visit: No Status: Chronic Qualifiers: Diabetes mellitus type: type 2 Diabetes mellitus fci insulin use: without superintendent container terminal use Diabetes mellitus complication status: without complication Qualified Code(s): E11.9 - Type 2 diabetes mellitus without complications Code(s): E11.9 - TYPE 2 DIABETES MELLITUS WITHOUT COMPLICATIONS (4) Hx pulmonary embolism Current Visit: No Status: Chronic Code(s): Z86.711 - PERSONAL HISTORY OF PULMONARY EMBOLISM (5) Protein calorie malnutrition Current Visit: No Status: Chronic Qualifiers: Protein-calorie malnutrition severity: moderate Qualified Code(s): E44.0 - Moderate protein-calorie malnutrition Code(s): E46 - UNSPECIFIED PROTEIN-CALORIE MALNUTRITION (6) DNR (do not resuscitate) Current Visit: No Status: Chronic
[2018-10-23] MEDS: ROCEPHIN 1 Gm-D5w 50 ml Bag** 1 G/50 ML IVPB IV SCH (09:21)
[2018-10-23] MEDS: NORVASC 5 MG PO SCH (09:22)
[2018-10-23] MEDS: Protonix 40MG Tablet PO SCH ×2 (09:22→21:56)
[2018-10-23] MEDS: ELIQUIS 2.5 MG TABLET PO SCH ×2 (09:22→21:56)
[2018-10-23] MEDS ORDERED: NON-FORMULARY ITEM (Fluticasone/Umeclidin/Vilanter [Trelegy Ellipta 100-62.5-25] 1 PUFF) IH SCH (10:00)
[2018-10-23] MEDS: NovoLOG Insulin SQ PRN ×3 (11:32→23:58)
[2018-10-23] MEDS: PATIENT OWN MEDICATION IH SCH (12:34)
[2018-10-23] MEDS: xanAX 0.5 MG PO PRN (21:56)
[2018-10-24] MEDS: DUONEB 0.5-3 MG/3 ml Neb IH SCH ×5 (03:49→19:19)
[2018-10-24] MEDS: solu-MEDROL 125 MG IV SCH ×3 (05:29→22:06)
--- NOTE | 2018-10-24 09:19 | PCM.NOTE ---
Date and Time: 10/24/18916 Subjective Assessment: patient continues to improve with his breathing, he is very fatigued and sleeping a lot but feeling better Objective Exam General Appearance: thin Neurologic Exam: alert, oriented x 3, cooperative Skin Exam: normal color, warm, dry Respiratory Exam: prolonged expirations, rhonchi Cardiovascular Exam: regular rate/rhythm, normal heart sounds Gastrointestinal/Abdomen Exam: soft, No tenderness, No mass OBJECTIVE DATA Vital Signs: Vital Signs - 24 hr Temp Pulse Resp BP Pulse Ox 10/24/18 08:42 86 20 99 10/24/18 07:35 97.8 F 86 20 128/68 96 10/24/18 04:15 97.6 F 87 21 148/68 97 10/24/18 04:02 84 21 96 10/24/18 04:00 21 10/24/18 00:24 98.0 F 72 19 128/71 99 10/24/18 00:03 73 18 98 10/24/18 00:00 19 10/23/18 21:30 83 18 97 10/23/18 20:00 98.4 F 83 20 115/63 98 10/23/18 16:19 97.8 F 92 H 22 128/68 93 L 10/23/18 16:00 20 10/23/18 14:24 85 18 97 10/23/18 12:35 97.3 F 90 20 116/65 93 L 10/23/18 12:00 18 10/23/18 10:24 84 18 95 Oxygen-Last 24 hours O2 Percentage 5 Liters = 40% O2 Percentage 5 Liters = 40% O2 Percentage 5 Liters = 40% O2 Percentage 5 Liters = 40% O2 Percentage 5 Liters = 40% Oxygen Flowrate (L/min)-RT 5 Pain Assessment - Last Documented Pain Intensity 3 Pain Scale Used FLACC Intake and Output: Intake & Output 10/21/18 10/22/18 10/23/18 10/24/18 11:59 11:59 11:59 11:59 Intake Total 2856 4174 Output Total 8853 6545 Balance 1556 1899 Weight 49.7 kg Lab Results: Accuchecks Date 10/24/18 Date 10/23/18 Date 10/23/18 Time 22:00 Time 16:30 Time 11:30 Accucheck Value: 411 Accucheck Value: 316 Accucheck Value: 421 Radiology Exams: Radiology Procedures Category Date Time Status CHEST 2 VIEWS (PA AND LAT) Routine Exams 10/22/18 17:42 Completed Assessment/Plan (1) Acute exacerbation of chronic obstructive airways disease Current Visit: No Status: Acute Onset Date: ~01/29/18 Assessment & Plan: continue rocephin, nebs and IV solu medrol. likely home tomorrow if continues to improve Code(s): J44.1 - CHRONIC OBSTRUCTIVE PULMONARY DISEASE W (ACUTE) EXACERBATION (2) Black lung Current Visit: No Status: Chronic Code(s): J60 - COALWORKER'S PNEUMOCONIOSIS (3) Chronic hypoxemic respiratory failure Current Visit: No Status: Chronic (4) End stage COPD Current Visit: No Status: Chronic Code(s): J44.9 - CHRONIC OBSTRUCTIVE PULMONARY DISEASE, UNSPECIFIED (5) DNR (do not resuscitate) Current Visit: No Status: Chronic
[2018-10-24] MEDS: Sodium Chloride 0.9% 1000 ML 1,000 ML IV SCH ×2 (09:23→20:02)
[2018-10-24] MEDS: ROCEPHIN 1 Gm-D5w 50 ml Bag** 1 G/50 ML IVPB IV SCH (09:24)
[2018-10-24] MEDS: NovoLOG Insulin SQ PRN ×3 (09:25→22:06)
[2018-10-24] MEDS: NORVASC 5 MG PO SCH (09:26)
[2018-10-24] MEDS: ELIQUIS 2.5 MG TABLET PO SCH ×2 (09:26→22:05)
[2018-10-24] MEDS: PATIENT OWN MEDICATION IH SCH (09:26)
[2018-10-24] MEDS: Protonix 40MG Tablet PO SCH ×2 (09:26→22:05)
[2018-10-24] MEDS: xanAX 0.5 MG PO PRN (22:05)
[2018-10-25] MEDS: DUONEB 0.5-3 MG/3 ml Neb IH SCH ×4 (03:08→10:26)
[2018-10-25] MEDS: Sodium Chloride 0.9% 1000 ML 1,000 ML IV SCH (05:46)
[2018-10-25] MEDS: solu-MEDROL 125 MG IV SCH (05:46)
[2018-10-25 06:45] LABS: Hematocrit 32.6 % (42-50); Hemoglobin 10.1 gm/dl (12.5-18.0); Mean Cell Volume 95.3 fl (78-100); Mean Corpuscular Hemoglobin 29.5 pg (26-32); Mean Platelet Volume 8.8 fl (6-9.5); Platelet Count 213 K/mm3 (150-450); Red Blood Count 3.42 M/mm3 (4.1-5.6); Red Cell Distribution Width 14.2 % (11.5-14.0); White Blood Count 12.7 K/mm3 (4.0-10.5)
[2018-10-25] MEDS: PATIENT OWN MEDICATION IH SCH (07:01)
[2018-10-25 07:23] LABS: Lymphocytes 4 % (24-44); Monocyte 1 % (0.0-12.0); Neutrophils 95 % (36.-66.); Total Cells Counted 100
[2018-10-25 07:24] LABS: Platelet Estimate NORMAL (NORMAL)
[2018-10-25 07:29] LABS: ANION GAP 10.4 MEQ/L (5-15); BLOOD UREA NITROGEN 21 mg/dL (9-20); CHLORIDE 106 mmol/L (98-107); Calcium 8.1 mg/dL (8.4-10.2); Carbon Dioxide 27 mmol/L (22-30); Creatinine 1 0.52 mg/dL (0.66-1.25); Glucose 312 mg/dL (74-106); Potassium 4.6 mmol/L (3.5-5.1); SODIUM 139 mmol/L (137-145)
[2018-10-25] MEDS: NovoLOG Insulin SQ PRN ×2 (08:17→12:21)
[2018-10-25 08:26] VITALS: BP 152/77
--- NOTE | 2018-10-25 09:01 | PCM.DS ---
Discharge Summary Date of Admission: 10/22/18 15:29 Admitting Physician: IBETH JAEGER Primary Care Provider: IBETH JAEGER Allergies Allergies No Known Drug Allergies Allergy (Verified 08/30/18 14:49) Hospital Summary - Hospital Course Hospital Course: patient with endstage copd was admitted with acute exacerbation, treated with rocephin/zithromax and IV solu medrol and nebs. back to baseline now which is not good, he is currently stable and ready for discharge. has been to [facility] several times and been on hospice previously, not interested in any of these services at this time. - Vitals & Intake/Output Vital Signs: Vital Signs Temperature 97.5 F 10/25/18 08:00 Pulse Rate 69 10/25/18 08:00 Respiratory Rate 16 10/25/18 08:00 Blood Pressure 152/77 10/25/18 08:00 O2 Sat by Pulse Oximetry 99 10/25/18 08:00 Oxygen-Last Documented O2 Percentage 5 Liters = 40% Intake & Output: Intake & Output 10/22/18 10/23/18 10/24/18 10/25/18 11:59 11:59 11:59 11:59 Intake Total 2856 4174 2400 Output Total 1300 2275 2050 Balance 1556 1899 350 Weight 49.7 kg 49.7 kg - Lab Result Diagrams: 10/25/18 06:35 10/25/18 06:35 Lab Results-Last 24 Hrs: Accuchecks Date 10/24/18 Date 10/24/18 Time 16:30 Time 11:30 Accucheck Value: 301 Accucheck Value: 325 Accucheck Value: 392 Lab Results-Last 24 Hours 10/25/18 10/25/18 Range/Units 06:35 06:35 WBC 12.7 H (4.0-10.5) K/mm3 RBC 3.42 L (4.1-5.6) M/mm3 Hgb 10.1 L (12.5-18.0) gm/dl Hct 32.6 L (42-50) % MCV 95.3 (78-100) fl MCH 29.5 (26-32) pg MCHC 31.0 L (32-36) g/dl RDW 14.2 H (11.5-14.0) % Plt Count 213 (150-450) K/mm3 MPV 8.8 (6-9.5) fl Segmented Neutrophils 95 H (36.-66.) % Lymphocytes (Manual) 4 L (24-44) % Monocytes (Manual) 1 (0.0-12.0) % Platelet Estimate NORMAL (NORMAL) RBC Morphology NORMAL Sodium 139 (137-145) mmol/L Potassium 4.6 (3.5-5.1) mmol/L Chloride 106 (98-107) mmol/L Carbon Dioxide 27 (22-30) mmol/L Anion Gap 10.4 (5-15) MEQ/L BUN 21 H (9-20) mg/dL Creatinine 0.52 L (0.66-1.25) mg/dL Estimated GFR > 60.0 ML/MIN Glucose 312 H (74-106) mg/dL Calcium 8.1 L (8.4-10.2) mg/dL Micro Results-Entire Visit: Microbiology 10/23/18 10:44 Urine Culture - Preliminary Clean Catch Midstream NO GROWTH TO DATE Accuchecks Date 10/24/18 Date 10/24/18 Time 16:30 Time 11:30 Accucheck Value: 301 Accucheck Value: 325 Accucheck Value: 392 - Procedures and Test Procedures and Tests throughout Hospitalization: Therapy Orders & Screens 10/22/18 15:46 EKG ROUTINE Comment: O2 TO KEEP SATS 88-93% Diagnosis: COPD EXAC Oxygen Nasal Cannula 2 lpm Comment: O2 TO KEEP SATS 88-93% Diagnosis: COPD EXAC 10/22/18 16:30 Smoking Cessation Education ONCE Comment: Diagnosis: COPD EXAC Smoking Status: Current every day smoker How long have you smoked: 40 Have you smoked in the past 12 months: No Approximately how many cigarettes per day: 40 Do you dip or chew tobacco: No If,Former Smoker,when did you quit: 3 years ago 10/22/18 18:05 Respiratory Therapy Assessment DAILY Comment: Diagnosis: COPD EXAC 10/22/18 18:06 Respiratory MDI UD Comment: Diagnosis: COPD EXAC 10/23/18 10:32 Peak Expiratory Flow Rate ONCE Comment: Reason For Exam: Diagnosis: COPD EXAC, DM Discharge Exam General Appearance: no apparent distress, alert, cachetic, thin Respiratory Exam: diminished breath sounds, prolonged expirations Cardiovascular Exam: regular rate/rhythm, normal heart sounds Gastrointestinal/Abdomen Exam: soft, No tenderness, No mass Extremity Exam: normal inspection, normal range of motion Skin Exam: normal color, warm, dry Final Diagnosis/Problem List - Final Discharge Diagnosis/Problem (1) Acute exacerbation of chronic obstructive airways disease Current Visit: No Status: Acute Onset Date: ~01/29/18 Code(s): J44.1 - CHRONIC OBSTRUCTIVE PULMONARY DISEASE W (ACUTE) EXACERBATION (2) Black lung Current Visit: No Status: Chronic Code(s): J60 - COALWORKER'S PNEUMOCONIOSIS (3) Chronic hypoxemic respiratory failure Current Visit: No Status: Chronic (4) End stage COPD Current Visit: No Status: Chronic Code(s): J44.9 - CHRONIC OBSTRUCTIVE PULMONARY DISEASE, UNSPECIFIED (5) DNR (do not resuscitate) Current Visit: No Status: Chronic - Discharge Disposition: Home, Self-Care Condition: Stable Prescriptions: New Prednisone 10 mg [Deltasone 10 mg] 10 mg PO UD #60 tablet Doxycycline Hyclate 100 mg PO BID #14 tablet Continue Apixaban [Eliquis 5 mg Tablet] 5 mg PO BID Ipratropium/Albuterol Sulfate [Iprat-Albut 0.5-3(2.5) mg/3 ml] 3 ml IH Q4HPRN PRN PRN Reason: Shortness Of Breath Alprazolam 0.5 mg PO HS PRN PRN #30 tablet PRN Reason: Anxiety Hydrocodone/APAP 10/325 mg [Knapp 10/325 MG Tablet] 1 tab PO Q4H PRN PRN PRN Reason: Pain Fluticasone/Umeclidin/Vilanter [Trelegy Ellipta 100-62.5-25] 1 puff IH DAILY Metformin HCl 500 mg [Glucophage 500 MG] 500 mg PO BID #60 tablet PANTOPRAZOLE 40 mg Tablet [Protonix 40MG Tablet] 40 mg PO BID Amlodipine Besylate 5 mg [Norvasc 5 mg] 5 mg PO QAM #30 tablet Discontinued Prednisone 20 mg [Deltasone 20 mg] 20 mg PO DAILY #30 tablet Follow up with: IBETH JAEGER MD [Primary Care Provider] - 1 Week
[2018-10-25] MEDS: NORVASC 5 MG PO SCH (10:10)
[2018-10-25] MEDS: ELIQUIS 2.5 MG TABLET PO SCH (10:10)
[2018-10-25] MEDS: Protonix 40MG Tablet PO SCH (10:10)
[2018-10-25] MEDS: ROCEPHIN 1 Gm-D5w 50 ml Bag** 1 G/50 ML IVPB IV SCH (10:10)
[2018-10-25 10:28] VITALS: PULSE 77; O2SAT 98
[2018-10-25] MEDS: xanAX 0.5 MG PO PRN (12:46)
== END 2018-10-25 12:52 | disposition home or self-care (01) | DRG 191 ==
LOC: MED SURG 15:29 → OBSVTOIN 15:29
PROVIDERS: ADMIT Family Medicine; ATTEND Family Medicine
DX: J44.1 Chronic obstructive pulmonary disease with (acute) exacerbation (principal); J96.11 Chronic respiratory failure with hypoxia; E44.0 Moderate protein-calorie malnutrition; J60 Coalworker's pneumoconiosis; E11.9 Type 2 diabetes mellitus without complications; R07.81 Pleurodynia; Z79.01 Long term (current) use of anticoagulants; Z79.899 Other long term (current) drug therapy; F17.200 Nicotine dependence, unspecified, uncomplicated; Z86.711 Personal history of pulmonary embolism
CPT/HCPCS: 36415; 71046; 80048; 80053; 81001; 82962; 83036; 83880; 84484; 85025; 87086; 93005; 94150; 94640; 94760; J0696; J2930; A9270-GY

== ENCOUNTER 2018-11-04 11:52 | Inpatient (IN) | payer BLACK LUNG, MEDICARE, OTHER ==
[2018-11-04] MEDS ORDERED: DUONEB 0.5-3 MG/3 ml Neb IH ONE ×2 (12:06→12:17)
[2018-11-04] MEDS ORDERED: ROCEPHIN 1 Gm-D5w 50 ml Bag** 1 G/50 ML IVPB IV STA (12:06)
[2018-11-04] MEDS ORDERED: Zithromax 500 MG/ 250 ML NaCl Premix 500 MG/250 ML IVPB IV STA (12:06)
[2018-11-04] MEDS ORDERED: Sodium Chloride 0.9% 1000 ML 1,000 ML IV SCH (12:15)
[2018-11-04] MEDS ORDERED: Zithromax 500 MG/ 250 ML NaCl Premix 500 MG/250 ML IVPB IV ONE (12:30)
[2018-11-04] MEDS ORDERED: ROCEPHIN 1 Gm-D5w 50 ml Bag** 1 G/50 ML IVPB IV ONE (12:30)
[2018-11-04] MEDS ORDERED: Sodium Chloride 0.9% 1000 ML 1,000 ML ONE (12:30)
[2018-11-04 12:42] LABS: BASOPHIL % 0.1 % (0.0-0.4); Basophil (Absolute #) 0.01 (0-0.4); Eosinophil % 0.2 % (0.00-5.0); Eosinophil (Absolute #) 0.03 (0-0.5); Granulocyte Absolute (ANC) 12.85 (1.4-6.9); Granulocytes % 77.3 % (36.0-66.0); Hematocrit 40.4 % (42-50); Lymphocyte (Absolute #) 2.75 (1.0-4.6); Lymphocytes % 16.5 % (24.0-44.0); Mean Cell Volume 93.1 fl (78-100); Mean Corpuscular Hgb Concent. 32.2 g/dl (32-36); Mean Platelet Volume 8.9 fl (6-9.5); Monocyte (Absolute #) 0.98 (0.0-1.3); Monocytes % 5.9 % (0.0-12.0); Platelet Count 251 K/mm3 (150-450); Red Blood Count 4.34 M/mm3 (4.1-5.6); Red Cell Distribution Width 14.4 % (11.5-14.0); White Blood Count 16.6 K/mm3 (4.0-10.5)
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
[2018-11-04 13:03] LABS: ALBUMIN 3.2 g/dL (3.5-5.0); ALKALINE PHOSPHATASE 65 U/L (38-126); ANION GAP 11.4 MEQ/L (5-15); BLOOD UREA NITROGEN 39 mg/dL (9-20); CHLORIDE 105 mmol/L (98-107); Calcium 9.1 mg/dL (8.4-10.2); Carbon Dioxide 29 mmol/L (22-30); Creatinine 1 0.72 mg/dL (0.66-1.25); Glucose 352 mg/dL (74-106); MAGNESIUM 1.6 mg/dL (1.6-2.3); NT PRO BNP 331 pg/mL (0-900); Potassium 4.1 mmol/L (3.5-5.1); SGOT/AST 16 U/L (17-59); SGPT/ALT 20 U/L (0-50); SODIUM 141 mmol/L (137-145)
[2018-11-04] MEDS: solu-MEDROL 125 MG IV SCH ×2 (15:43→21:08)
[2018-11-04] MEDS: DUONEB 0.5-3 MG/3 ml Neb IH SCH ×3 (15:46→23:54)
[2018-11-04] MEDS ORDERED: ENOXAPARIN SODIUM SQ SCH (16:00)
[2018-11-04] MEDS: NovoLOG Insulin SQ PRN ×2 (16:26→23:23)
[2018-11-04] MEDS ORDERED: Norco 10/325 MG Tablet PO PRN (18:06)
[2018-11-04] MEDS: xanAX 0.5 MG PO SCH (21:08)
[2018-11-04] MEDS: Pepcid 20 MG VIAL IV SCH (21:08)
[2018-11-04] MEDS: Protonix 40MG Tablet PO SCH (21:08)
[2018-11-04] MEDS: ELIQUIS 2.5 MG TABLET PO SCH (21:09)
--- NOTE | 2018-11-04 22:09 | XRAY ---
Indication: Weak and short of breath. Comparison: October 22, 2018. Portable chest unchanged again demonstrating COPD, bilateral scattered fibrosis/scarring, right lung postsurgical changes, bibasilar pleural effusions/thickening, osteopenia/degenerative changes, and old left rib fractures. Heart is not enlarged. No new cardiopulmonary abnormalities.
[2018-11-05] MEDS: DUONEB 0.5-3 MG/3 ml Neb IH SCH ×6 (03:54→23:02)
[2018-11-05 06:32] LABS: Hematocrit 35.8 % (42-50); Hemoglobin 11.4 gm/dl (12.5-18.0); Mean Cell Volume 93.5 fl (78-100); Mean Corpuscular Hgb Concent. 31.8 g/dl (32-36); Platelet Count 214 K/mm3 (150-450); Red Blood Count 3.83 M/mm3 (4.1-5.6); Red Cell Distribution Width 14.2 % (11.5-14.0); White Blood Count 12.3 K/mm3 (4.0-10.5)
[2018-11-05 06:38] LABS: Mean Corpuscular Hemoglobin 29.7 pg (26-32)
[2018-11-05 07:01] LABS: ALKALINE PHOSPHATASE 63 U/L (38-126); ANION GAP 10.8 MEQ/L (5-15); BLOOD UREA NITROGEN 26 mg/dL (9-20); CHLORIDE 107 mmol/L (98-107); Calcium 8.5 mg/dL (8.4-10.2); Carbon Dioxide 28 mmol/L (22-30); Glucose 437 mg/dL (74-106); MAGNESIUM 1.8 mg/dL (1.6-2.3); Potassium 4.2 mmol/L (3.5-5.1); SGOT/AST 11 U/L (17-59); SGPT/ALT 15 U/L (0-50); SODIUM 141 mmol/L (137-145)
[2018-11-05 07:03] LABS: ALBUMIN 2.8 g/dL (3.5-5.0); Total Protein 5.4 g/dL (6.3-8.2)
[2018-11-05 07:06] LABS: Creatinine 1 0.58 mg/dL (0.66-1.25)
[2018-11-05] MEDS: Sodium Chloride 0.9% 1000 ML 1,000 ML IV SCH (07:31)
[2018-11-05] MEDS ORDERED: Advair Hfa 115/21 Common canister IH SCH (07:45)
--- NOTE | 2018-11-05 08:09 | XRAY ---
Indication: COPD exacerbation. Comparison: One day earlier. Portable chest continues to remain unchanged again demonstrating extensive COPD, right lung postsurgical changes, bilateral scattered fibrosis/scarring, and bibasilar pleural effusions/thickening. Heart and mediastinal structures within normal limits. No new cardiopulmonary abnormalities.
[2018-11-05] MEDS ORDERED: NON-FORMULARY ITEM (Fluticasone/Umeclidin/Vilanter [Trelegy Ellipta 100-62.5-25] 1 PUFF) IH SCH (10:00)
[2018-11-05] MEDS: NovoLOG Insulin SQ PRN ×3 (10:16→16:26)
[2018-11-05] MEDS: solu-MEDROL 125 MG IV SCH ×2 (11:08→21:40)
[2018-11-05] MEDS: Protonix 40MG Tablet PO SCH ×2 (11:11→21:42)
[2018-11-05] MEDS: Pepcid 20 MG VIAL IV SCH ×2 (11:11→21:42)
[2018-11-05] MEDS: NORVASC 5 MG PO SCH (11:11)
[2018-11-05] MEDS: ELIQUIS 2.5 MG TABLET PO SCH ×2 (11:11→21:42)
[2018-11-05] MEDS: ROCEPHIN 1 Gm-D5w 50 ml Bag** 1 G/50 ML IVPB IV SCH (11:12)
[2018-11-05] MEDS: Glucophage 500 MG PO SCH ×2 (11:18→16:26)
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
[2018-11-05] MEDS: Lantus Insulin SQ SCH (12:23)
[2018-11-05] MEDS: Zithromax 500 MG/ 250 ML NaCl Premix 500 MG/250 ML IVPB IV SCH (12:25)
[2018-11-05] MEDS: Megace 40 MG/ML PO SCH (13:37)
--- NOTE | 2018-11-05 20:21 | XRAY ---
Indication: Abdomen pain and nausea. Weight loss. Comparison: None 2 views of the abdomen demonstrates nonspecific nonobstructed bowel gas pattern with mild fecal debris in the ascending colon. No free air. Chronic pancreatitis calcifications. Remaining solid organs are unremarkable. Osseous structures demonstrates osteopenia, mild multilevel degenerative spondylosis, and old bilateral rib fractures. Lung bases demonstrates bibasilar pleural effusions/thickening and right perihilar suture material. Impression: Nonacute nonobstructed abdomen with incidental chronic pancreatitis calcifications and bibasilar pleural effusions/thickening. Comment: Preliminary interpretation was made by [facility] who does not report lung base findings.
[2018-11-05] MEDS: Tussionex Pennkinetic Susp PO PRN (21:39)
[2018-11-05] MEDS: NYSTOP 30 GM CREAM TOP SCH (21:40)
[2018-11-05] MEDS: Mucinex 600MG ER Tabs PO SCH (21:42)
[2018-11-05] MEDS: xanAX 0.5 MG PO SCH (21:42)
[2018-11-06] MEDS: DUONEB 0.5-3 MG/3 ml Neb IH SCH ×6 (03:12→23:36)
[2018-11-06] MEDS: Sodium Chloride 0.9% 1000 ML 1,000 ML IV SCH ×2 (04:52→13:29)
[2018-11-06] MEDS: Lantus Insulin SQ SCH (08:05)
[2018-11-06] MEDS: Glucophage 500 MG PO SCH ×2 (08:05→17:32)
[2018-11-06] MEDS: NovoLOG Insulin SQ PRN ×3 (08:06→22:09)
--- NOTE | 2018-11-06 08:47 | PCM.NOTE ---
Date and Time: 11/06/18 0842 Subjective Assessment: Pt's abd pain is better today. He is finishing off his breakfast of eggs, suarez , and ham with salsa. He had some breathing problem this morning but is breathing better now. - Review of Systems Constitutional: No Fever Respiratory: Cough, Short Of Breath Objective Exam General Appearance: no apparent distress, alert Neurologic Exam: oriented x 3, cooperative Skin Exam: normal color, warm, dry, No rash Wound Assessment: Skin/Wound Assessment Wound/Incision Assessment Start: 11/04/18 15: 16 Text: Status: Active Freq: Q6H Protocol: Document 11/06/18 02:00 AW (Rec: 11/06/18 03:16 AW [id number]) Wound/Incision Assessment Buttock Wound Assessment Shift Assessment Wound Type Pressure Ulcer Wound Stage Stage II Drainage Amount None Topical Solution/Irrigant Medicated Ointment Comment barrier cream with zinc applied to areas; pictures on chart. Wound Photo Photo Taken Yes Date: 11/04/18 Respiratory Exam: diminished breath sounds (good air exchange), prolonged expirations, wheezing (RUL), No crackles/rales, No rhonchi Cardiovascular Exam: regular rate/rhythm, normal heart sounds, No murmur Gastrointestinal/Abdomen Exam: soft, normal bowel sounds, distention (as usual) , No tenderness, No mass, No guarding, No rebound Extremity Exam: normal inspection, swelling, No pedal edema Back Exam: No rash OBJECTIVE DATA Vital Signs: Vital Signs - 24 hr Temp Pulse Resp BP Pulse Ox 11/06/18 07:39 98.3 F 84 18 121/79 98 11/06/18 07:00 78 18 98 11/06/18 05:59 16 11/06/18 04:00 98.1 F 87 16 106/64 94 L 11/06/18 03:15 85 18 95 11/06/18 02:00 18 11/06/18 00:00 98.2 F 99 H 137/72 96 11/05/18 23:05 98 H 18 96 11/05/18 22:00 18 11/05/18 20:00 98.4 F 63 18 104/61 92 L 11/05/18 19:15 63 18 92 L 11/05/18 15:45 97.8 F 86 20 142/78 95 11/05/18 14:46 98 H 20 95 11/05/18 12:18 97.8 F 87 20 128/70 96 11/05/18 11:49 94 H 20 95 Oxygen-Last 24 hours O2 Percentage 4 Liters = 36% O2 Percentage 5 Liters = 40% O2 Percentage 5 Liters = 40% O2 Percentage 5 Liters = 40% O2 Percentage 5 Liters = 40% O2 Percentage 5 Liters = 40% Pain Assessment - Last Documented Pain Intensity 0 Pain Scale Used 0-10 Pain Scale Intake and Output: Intake & Output 11/03/18 11/04/18 11/05/18 11/06/18 11:59 11:59 11:59 11:59 Intake Total 1942 3124 Output Total 1250 1450 Balance 692 1674 Weight 49.895 kg 51.8 kg 59 kg Lab Results: Accuchecks Date 11/06/18 Date 11/06/18 Time 07:30 Time 22:00 Accucheck Value: 396 Accucheck Value: 199 Accucheck Value: 258 Accucheck Value: 424 Radiology Exams: Radiology Procedures Category Date Time Status ABDOMEN 2 VIEW Routine Exams 11/05/18 12:46 Completed CHEST 1 VIEW (PORTABLE) Routine Exams 11/05/18 08:01 Completed CHEST 1 VIEW (PORTABLE) Stat Exams 11/04/18 12:46 Completed Assessment/Plan (1) Acute exacerbation of chronic obstructive airways disease Current Visit: Yes Status: Acute Onset Date: ~01/29/18 Assessment & Plan: Improving. On day #3 rocephin and zithromax. Air exchange is much better today than yesterday. 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 Code(s): E11.9 - TYPE 2 DIABETES MELLITUS WITHOUT COMPLICATIONS (5) End stage COPD Current Visit: No Status: Chronic Code(s): J44.9 - CHRONIC OBSTRUCTIVE PULMONARY DISEASE, UNSPECIFIED (6) Hx pulmonary embolism Current Visit: No Status: Chronic Assessment & Plan: on Eliquis. Code(s): Z86.711 - PERSONAL HISTORY OF PULMONARY EMBOLISM (7) Protein calorie malnutrition Current Visit: No Status: Chronic Qualifiers: Protein-calorie malnutrition severity: moderate Qualified Code(s): E44.0 - Moderate protein-calorie malnutrition Assessment & Plan: started megace yesterday. certainly eating well today. Code(s): E46 - UNSPECIFIED PROTEIN-CALORIE MALNUTRITION (8) Abdominal pain Current Visit: No Status: Resolved Qualifiers: Abdominal location: generalized Qualified Code(s): R10.84 - Generalized abdominal pain Assessment & Plan: improved. xr with no findings. kristin po very well. Code(s): R10.9 - UNSPECIFIED ABDOMINAL PAIN
[2018-11-06] MEDS: ELIQUIS 2.5 MG TABLET PO SCH ×2 (09:36→22:07)
[2018-11-06] MEDS: Protonix 40MG Tablet PO SCH ×2 (09:36→22:08)
[2018-11-06] MEDS: Mucinex 600MG ER Tabs PO SCH ×2 (09:36→22:08)
[2018-11-06] MEDS: ROCEPHIN 1 Gm-D5w 50 ml Bag** 1 G/50 ML IVPB IV SCH (09:36)
[2018-11-06] MEDS: Pepcid 20 MG VIAL IV SCH ×2 (09:36→22:08)
[2018-11-06] MEDS: solu-MEDROL 125 MG IV SCH ×2 (09:36→22:08)
[2018-11-06] MEDS: NORVASC 5 MG PO SCH (09:36)
[2018-11-06] MEDS: Zithromax 500 MG/ 250 ML NaCl Premix 500 MG/250 ML IVPB IV SCH (09:54)
[2018-11-06] MEDS: Megace 40 MG/ML PO SCH (09:59)
[2018-11-06] MEDS: NYSTOP 30 GM CREAM TOP SCH ×2 (10:00→22:10)
[2018-11-06] MEDS: Tussionex Pennkinetic Susp PO PRN (10:00)
[2018-11-06] MEDS: xanAX 0.5 MG PO SCH (22:09)
[2018-11-07] MEDS: Sodium Chloride 0.9% 1000 ML 1,000 ML IV SCH (03:06)
[2018-11-07] MEDS: DUONEB 0.5-3 MG/3 ml Neb IH SCH ×5 (03:12→19:51)
[2018-11-07 05:32] LABS: Hematocrit 33.8 % (42-50); Hemoglobin 10.6 gm/dl (12.5-18.0); Mean Cell Volume 94.7 fl (78-100); Mean Corpuscular Hgb Concent. 31.4 g/dl (32-36); Mean Platelet Volume 8.5 fl (6-9.5); Platelet Count 191 K/mm3 (150-450); Red Blood Count 3.57 M/mm3 (4.1-5.6); Red Cell Distribution Width 14.4 % (11.5-14.0); White Blood Count 20.6 K/mm3 (4.0-10.5)
[2018-11-07 05:34] LABS: Mean Corpuscular Hemoglobin 29.6 pg (26-32)
[2018-11-07 06:05] LABS: ALBUMIN 2.6 g/dL (3.5-5.0); ALKALINE PHOSPHATASE 51 U/L (38-126); ANION GAP 9.2 MEQ/L (5-15); BLOOD UREA NITROGEN 20 mg/dL (9-20); CHLORIDE 109 mmol/L (98-107); Calcium 8.6 mg/dL (8.4-10.2); Carbon Dioxide 28 mmol/L (22-30); Creatinine 1 0.51 mg/dL (0.66-1.25); Glucose 217 mg/dL (74-106); Potassium 4.3 mmol/L (3.5-5.1); SGOT/AST 18 U/L (17-59); SGPT/ALT 18 U/L (0-50); SODIUM 142 mmol/L (137-145); Total Protein 5.1 g/dL (6.3-8.2)
[2018-11-07] MEDS: Lantus Insulin SQ SCH (07:55)
[2018-11-07] MEDS: NovoLOG Insulin SQ PRN ×3 (07:55→21:46)
[2018-11-07] MEDS: Glucophage 500 MG PO SCH ×2 (07:55→17:45)
--- NOTE | 2018-11-07 09:05 | PCM.NOTE ---
Date and Time: 11/07/18901 Subjective Assessment: patient feeling poorly, very short of breath and cough is harsh and having fits of coughing. he is weak Objective Exam General Appearance: cachetic, thin Neurologic Exam: alert, oriented x 3, cooperative Skin Exam: normal color, warm, dry Wound Assessment: Skin/Wound Assessment Wound/Incision Assessment Start: 11/04/18 15: 16 Text: Status: Active Freq: Q6H Protocol: Document 11/07/18 02:00 AR (Rec: 11/07/18 06:23 AR [id number]) Wound/Incision Assessment Buttock Wound Assessment Shift Assessment Wound Type Pressure Ulcer Wound Stage Stage II Drainage Amount None Topical Solution/Irrigant Medicated Ointment Wound Photo Photo Taken Yes Date: 11/04/18 Respiratory Exam: accessory muscle use, prolonged expirations, rhonchi, wheezing Cardiovascular Exam: regular rate/rhythm, normal heart sounds Gastrointestinal/Abdomen Exam: soft, No tenderness, No mass Extremity Exam: normal inspection, normal range of motion OBJECTIVE DATA Vital Signs: Vital Signs - 24 hr Temp Pulse Resp BP Pulse Ox 11/07/18 06:57 97.8 F 80 20 140/67 96 11/07/18 06:36 80 18 95 11/07/18 06:00 20 11/07/18 04:00 97.7 F 88 20 130/76 95 11/07/18 03:13 90 22 95 11/07/18 02:00 20 11/07/18 00:00 98.9 F 82 22 128/68 96 11/06/18 23:38 82 22 96 11/06/18 22:00 22 11/06/18 20:00 98.6 F 110 H 20 124/80 96 11/06/18 19:58 90 18 96 11/06/18 18:00 18 11/06/18 16:00 97.9 F 108 H 18 149/77 92 L 11/06/18 15:31 84 18 98 11/06/18 14:00 18 11/06/18 11:19 98.2 F 88 18 106/71 100 11/06/18 11:16 88 22 94 L 11/06/18 10:00 18 Oxygen-Last 24 hours O2 Percentage 5 Liters = 40% O2 Percentage 5 Liters = 40% O2 Percentage 5 Liters = 40% O2 Percentage 2 Liters = 28% O2 Percentage 4 Liters = 36% Oxygen Flowrate (L/min)-RT 5 Pain Assessment - Last Documented Pain Intensity 0 Pain Scale Used FLACC Intake and Output: Intake & Output 11/04/18 11/05/18 11/06/18 11/07/18 11:59 11:59 11:59 11:59 Intake Total 1944 3604 2729 Output Total 1250 1950 1775 Balance 692 6084 954 Weight 49.895 kg 51.8 kg 59 kg 60 kg Lab Results: Accuchecks Date 11/06/18 Date 11/06/18 Time 16:30 Time 12:08 Accucheck Value: 255 Accucheck Value: 305 Accucheck Value: 196 Accucheck Value: 396 Lab Results-Last 24 Hours 11/06/18 11/07/18 11/07/18 Range/Units 01:00 05:25 05:25 WBC 20.6 H (4.0-10.5) K/mm3 RBC 3.57 L (4.1-5.6) M/mm3 Hgb 10.6 L (12.5-18.0) gm/dl Hct 33.8 L (42-50) % MCV 94.7 (78-100) fl MCH 29.6 (26-32) pg MCHC 31.4 L (32-36) g/dl RDW 14.4 H (11.5-14.0) % Plt Count 191 (150-450) K/mm3 MPV 8.5 (6-9.5) fl Sodium 142 (137-145) mmol/L Potassium 4.3 (3.5-5.1) mmol/L Chloride 109 H (98-107) mmol/L Carbon Dioxide 28 (22-30) mmol/L Anion Gap 9.2 (5-15) MEQ/L BUN 20 (9-20) mg/dL Creatinine 0.51 L (0.66-1.25) mg/dL Estimated GFR > 60.0 ML/MIN Glucose 217 H (74-106) mg/dL Calcium 8.6 (8.4-10.2) mg/dL Total Bilirubin 0.30 (0.2-1.3) mg/dL AST 18 (17-59) U/L ALT 18 (0-50) U/L Alkaline Phosphatase 51 (38-126) U/L Serum Total Protein 5.1 L (6.3-8.2) g/dL Albumin 2.6 L (3.5-5.0) g/dL HIV-1 Specimen Source PRESUMPTIVE NEGATIVE (NEGATIVE) Radiology Exams: Radiology Procedures Category Date Time Status ABDOMEN 2 VIEW Routine Exams 11/05/18 12:46 Completed Assessment/Plan (1) COPD with exacerbation Current Visit: No Status: Acute Assessment & Plan: increase solu medrol frequency to q6 hrs, currently q12. continues nebs and rocephin/zithromax. Code(s): J44.1 - CHRONIC OBSTRUCTIVE PULMONARY DISEASE W (ACUTE) EXACERBATION (2) End stage COPD Current Visit: No Status: Chronic Assessment & Plan: pt has refused hospice, ecf stay and home health on multiple visits. he understands his disease is end stage and that there is not more that can be done for his respiratory issues Code(s): J44.9 - CHRONIC OBSTRUCTIVE PULMONARY DISEASE, UNSPECIFIED (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 (4) Hx pulmonary embolism Current Visit: No Status: Chronic Assessment & Plan: continue eliquis Code(s): Z86.711 - PERSONAL HISTORY OF PULMONARY EMBOLISM (5) DNR (do not resuscitate) Current Visit: No Status: Chronic
[2018-11-07] MEDS: Protonix 40MG Tablet PO SCH ×2 (09:09→21:44)
[2018-11-07] MEDS: NORVASC 5 MG PO SCH (09:09)
[2018-11-07] MEDS: ELIQUIS 2.5 MG TABLET PO SCH ×2 (09:09→21:43)
[2018-11-07] MEDS: Megace 40 MG/ML PO SCH (09:09)
[2018-11-07] MEDS: Mucinex 600MG ER Tabs PO SCH ×2 (09:09→21:43)
[2018-11-07] MEDS: NYSTOP 30 GM CREAM TOP SCH ×2 (09:10→21:45)
[2018-11-07] MEDS: Pepcid 20 MG VIAL IV SCH ×2 (09:10→23:59)
[2018-11-07] MEDS: ROCEPHIN 1 Gm-D5w 50 ml Bag** 1 G/50 ML IVPB IV SCH (09:10)
[2018-11-07] MEDS: solu-MEDROL 125 MG IV SCH ×3 (09:11→23:54)
[2018-11-07 09:13] LABS: BAND 6 % (0.0-2.0); Lymphocytes 1 % (24-44); Monocyte 3 % (0.0-12.0); Neutrophils 90 % (36.-66.); Platelet Estimate NORMAL (NORMAL); Total Cells Counted 100
[2018-11-07] MEDS: Zithromax 500 MG/ 250 ML NaCl Premix 500 MG/250 ML IVPB IV SCH (10:02)
[2018-11-07] MEDS: Tussionex Pennkinetic Susp PO PRN (21:44)
[2018-11-07] MEDS: xanAX 0.5 MG PO SCH (21:45)
[2018-11-08] MEDS: Sodium Chloride 0.9% 1000 ML 1,000 ML IV SCH ×2 (01:16→23:52)
[2018-11-08] MEDS: DUONEB 0.5-3 MG/3 ml Neb IH SCH ×7 (03:24→23:56)
[2018-11-08] MEDS: solu-MEDROL 125 MG IV SCH ×4 (05:29→21:54)
[2018-11-08] MEDS: Lantus Insulin SQ SCH (07:39)
[2018-11-08] MEDS: Glucophage 500 MG PO SCH ×2 (07:39→17:38)
[2018-11-08] MEDS: NovoLOG Insulin SQ PRN ×4 (07:40→21:55)
[2018-11-08] MEDS: ELIQUIS 2.5 MG TABLET PO SCH ×2 (09:50→21:54)
[2018-11-08] MEDS: NYSTOP 30 GM CREAM TOP SCH ×2 (09:51→22:19)
[2018-11-08] MEDS: NORVASC 5 MG PO SCH (09:51)
[2018-11-08] MEDS: Mucinex 600MG ER Tabs PO SCH ×2 (09:51→21:54)
[2018-11-08] MEDS: Megace 40 MG/ML PO SCH (09:51)
[2018-11-08] MEDS: Zithromax 500 MG/ 250 ML NaCl Premix 500 MG/250 ML IVPB IV SCH (09:52)
[2018-11-08] MEDS: Pepcid 20 MG VIAL IV SCH ×2 (09:52→21:54)
[2018-11-08] MEDS: Protonix 40MG Tablet PO SCH ×2 (09:52→21:54)
[2018-11-08] MEDS: ROCEPHIN 1 Gm-D5w 50 ml Bag** 1 G/50 ML IVPB IV SCH (09:52)
[2018-11-08] MEDS: xanAX 0.5 MG PO SCH (21:54)
[2018-11-09] MEDS: solu-MEDROL 125 MG IV SCH ×4 (03:09→23:06)
[2018-11-09] MEDS: DUONEB 0.5-3 MG/3 ml Neb IH SCH ×6 (03:35→23:10)
[2018-11-09] MEDS: Glucophage 500 MG PO SCH ×2 (07:53→18:13)
[2018-11-09] MEDS: NovoLOG Insulin SQ PRN ×4 (07:54→23:30)
[2018-11-09] MEDS: Lantus Insulin SQ SCH (07:54)
--- NOTE | 2018-11-09 08:24 | PCM.NOTE ---
Date and Time: 11/09/18822 Subjective Assessment: patient continues to have weakness, difficulty transferring and shortness of breath with significant wheezing. Objective Exam General Appearance: no apparent distress, alert, cachetic, thin Skin Exam: normal color, warm, dry Wound Assessment: Skin/Wound Assessment Wound/Incision Assessment Start: 11/04/18 15: 16 Text: Status: Active Freq: Q6H Protocol: Document 11/09/18 02:00 AR (Rec: 11/09/18 04:42 AR [id number]) Wound/Incision Assessment Left Lower Arm Wound Assessment Shift Assessment Wound Type Skin Tear Drainage Amount Minimal Drainage Description Sanguineous Primary Dressing Tegaderm Buttock Wound Assessment Shift Assessment Wound Type Pressure Ulcer Wound Stage Stage II Dressing Status Dry & Intact Drainage Amount None Topical Solution/Irrigant Medicated Ointment Wound Photo Photo Taken No Respiratory Exam: rhonchi, wheezing Cardiovascular Exam: regular rate/rhythm, normal heart sounds Gastrointestinal/Abdomen Exam: soft, No tenderness, No mass Extremity Exam: normal inspection, normal range of motion OBJECTIVE DATA Vital Signs: Vital Signs - 24 hr Temp Pulse Resp BP Pulse Ox 11/09/18 07:46 98.3 F 90 18 167/87 93 L 11/09/18 06:31 90 18 93 L 11/09/18 06:00 18 11/09/18 04:00 98.1 F 83 22 128/76 93 L 11/09/18 03:41 83 20 93 L 11/09/18 02:00 20 11/09/18 00:10 97.9 F 72 20 132/71 94 L 11/08/18 23:56 72 20 94 L 11/08/18 22:00 20 11/08/18 20:00 98.1 F 81 20 134/77 95 11/08/18 19:06 81 20 92 L 11/08/18 16:00 97.4 F 105 H 20 110/79 92 L 11/08/18 14:23 96 H 22 92 L 11/08/18 14:00 20 11/08/18 11:31 97.6 F 83 20 146/74 95 11/08/18 10:09 84 18 95 11/08/18 10:00 18 Oxygen-Last 24 hours O2 Percentage 5 Liters = 40% O2 Percentage 5 Liters = 40% O2 Percentage 5 Liters = 40% O2 Percentage 5 Liters = 40% O2 Percentage 5 Liters = 40% Pain Assessment - Last Documented Pain Intensity 0 Pain Scale Used FLACC Intake and Output: Intake & Output 11/06/18 11/07/18 11/08/18 11/09/18 11:59 11:59 11:59 11:59 Intake Total 3604 2729 1160 3137 Output Total 1950 1775 1100 2000 Balance 1654 821 14 3637 Weight 59 kg 60 kg 57.6 kg 58 kg Lab Results: Accuchecks Date 11/08/18 Date 11/08/18 Time 16:30 Time 11:30 Accucheck Value: 273 Accucheck Value: 289 Accucheck Value: 292 Assessment/Plan (1) COPD with exacerbation Current Visit: No Status: Acute Assessment & Plan: continue rocephin/zithromax, IV solu medrol and nebs. will likely be here through the weekend Code(s): J44.1 - CHRONIC OBSTRUCTIVE PULMONARY DISEASE W (ACUTE) EXACERBATION (2) End stage COPD Current Visit: No Status: Chronic Code(s): J44.9 - CHRONIC OBSTRUCTIVE PULMONARY DISEASE, UNSPECIFIED (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
[2018-11-09] MEDS: Zithromax 500 MG/ 250 ML NaCl Premix 500 MG/250 ML IVPB IV SCH (09:48)
[2018-11-09] MEDS: Pepcid 20 MG VIAL IV SCH ×2 (09:52→23:07)
[2018-11-09] MEDS: ELIQUIS 2.5 MG TABLET PO SCH ×2 (09:52→23:06)
[2018-11-09] MEDS: Tussionex Pennkinetic Susp PO PRN ×2 (09:52→23:06)
[2018-11-09] MEDS: NORVASC 5 MG PO SCH (09:52)
[2018-11-09] MEDS: Protonix 40MG Tablet PO SCH ×2 (09:52→23:06)
[2018-11-09] MEDS: Mucinex 600MG ER Tabs PO SCH ×2 (09:52→23:06)
[2018-11-09] MEDS: Megace 40 MG/ML PO SCH (09:52)
[2018-11-09] MEDS: NYSTOP 30 GM CREAM TOP SCH ×2 (09:54→23:33)
[2018-11-09] MEDS: ROCEPHIN 1 Gm-D5w 50 ml Bag** 1 G/50 ML IVPB IV SCH (15:05)
[2018-11-09] MEDS: xanAX 0.5 MG PO SCH (23:06)
[2018-11-10] MEDS: Sodium Chloride 0.9% 1000 ML 1,000 ML IV SCH ×2 (00:03→17:34)
[2018-11-10] MEDS: solu-MEDROL 125 MG IV SCH ×4 (05:29→22:16)
[2018-11-10 05:52] LABS: Granulocyte Absolute (ANC) 20.26 (1.4-6.9); Hematocrit 36.8 % (42-50); Hemoglobin 11.5 gm/dl (12.5-18.0); Mean Cell Volume 93.2 fl (78-100); Mean Corpuscular Hemoglobin 29.1 pg (26-32); Mean Corpuscular Hgb Concent. 31.3 g/dl (32-36); Mean Platelet Volume 8.6 fl (6-9.5); Platelet Count 257 K/mm3 (150-450); Red Blood Count 3.95 M/mm3 (4.1-5.6); Red Cell Distribution Width 14.5 % (11.5-14.0)
[2018-11-10 06:12] LABS: ALBUMIN 2.5 g/dL (3.5-5.0); ALKALINE PHOSPHATASE 54 U/L (38-126); ANION GAP 10.2 MEQ/L (5-15); BLOOD UREA NITROGEN 18 mg/dL (9-20); CHLORIDE 107 mmol/L (98-107); Calcium 8.5 mg/dL (8.4-10.2); Carbon Dioxide 28 mmol/L (22-30); Creatinine 1 0.57 mg/dL (0.66-1.25); Glucose 233 mg/dL (74-106); Potassium 4.4 mmol/L (3.5-5.1); SGOT/AST 10 U/L (17-59); SGPT/ALT 18 U/L (0-50); SODIUM 141 mmol/L (137-145)
[2018-11-10] MEDS: DUONEB 0.5-3 MG/3 ml Neb IH SCH ×6 (07:16→23:10)
[2018-11-10] MEDS: ELIQUIS 2.5 MG TABLET PO SCH ×2 (08:27→22:17)
[2018-11-10] MEDS: Glucophage 500 MG PO SCH ×2 (08:27→17:31)
[2018-11-10] MEDS: Mucinex 600MG ER Tabs PO SCH ×2 (08:27→22:17)
[2018-11-10] MEDS: NORVASC 5 MG PO SCH (08:28)
[2018-11-10] MEDS: Megace 40 MG/ML PO SCH (08:28)
[2018-11-10] MEDS: NYSTOP 30 GM CREAM TOP SCH ×2 (08:28→22:28)
[2018-11-10] MEDS: Pepcid 20 MG VIAL IV SCH ×2 (08:28→22:17)
[2018-11-10] MEDS: Protonix 40MG Tablet PO SCH ×2 (08:29→22:17)
[2018-11-10] MEDS: NovoLOG Insulin SQ PRN ×4 (08:29→22:16)
[2018-11-10] MEDS: Lantus Insulin SQ SCH (08:29)
[2018-11-10] MEDS: Tussionex Pennkinetic Susp PO PRN (08:32)
[2018-11-10 09:33] LABS: Lymphocytes 8 % (24-44); Neutrophils 92 % (36.-66.); Platelet Estimate NORMAL (NORMAL); Total Cells Counted 100; Toxic Granulation 1+
[2018-11-10] MEDS: ROCEPHIN 1 Gm-D5w 50 ml Bag** 1 G/50 ML IVPB IV SCH (09:58)
[2018-11-10] MEDS: Zithromax 500 MG/ 250 ML NaCl Premix 500 MG/250 ML IVPB IV SCH (10:20)
[2018-11-10] MEDS ORDERED: Lantus Insulin SQ ONE (11:43)
--- NOTE | 2018-11-10 14:54 | PCM.NOTE ---
Date and Time: 11/10/18 1450 Subjective Assessment: Still having shortness of breath at times. Has been up in the chair a few times with help but he tires easily. Thinks perhaps he's eating more with addition of megace. - Review of Systems Constitutional: No Fever Respiratory: Cough, Short Of Breath Objective Exam General Appearance: no apparent distress, alert Neurologic Exam: oriented x 3, cooperative Skin Exam: normal color, warm, dry, No rash Wound Assessment: Skin/Wound Assessment Wound/Incision Assessment Start: 11/04/18 15: 16 Text: Status: Active Freq: Q6H Protocol: Document 11/10/18 12:57 BA (Rec: 11/10/18 12:59 BA [id number]) Wound/Incision Assessment Left Upper Arm Wound Assessment Shift Assessment Wound Type Skin Tear General Appearance Unapproximated Comment noted partial scabbed removed. tegaderm applied. Left Lower Arm Wound Assessment Shift Assessment Wound Type Skin Tear Drainage Amount Minimal Drainage Description Sanguineous Primary Dressing Tegaderm Buttock Wound Assessment Shift Assessment Wound Type Pressure Ulcer Wound Stage Stage II Dressing Status Dry & Intact Drainage Amount None Topical Solution/Irrigant Medicated Ointment Comment barrier cream PRN Wound Photo Photo Taken No Respiratory Exam: lungs clear, diminished breath sounds (poor air exchange), prolonged expirations, wheezing (scattered exp wheezing), No crackles/rales, No rhonchi Cardiovascular Exam: regular rate/rhythm, normal heart sounds, No murmur Extremity Exam: normal inspection Back Exam: normal inspection, No rash OBJECTIVE DATA Vital Signs: Vital Signs - 24 hr Temp Pulse Resp BP Pulse Ox 11/10/18 12:00 98.2 F 104 H 18 117/84 98 11/10/18 11:24 99 H 18 98 11/10/18 07:28 98.5 F 91 H 18 135/73 98 11/10/18 07:23 98 H 18 98 11/10/18 06:00 21 11/10/18 04:00 98.2 F 100 H 21 140/82 98 11/10/18 02:00 22 11/10/18 00:00 98.7 F 74 22 117/70 97 11/09/18 23:10 77 20 96 11/09/18 22:00 21 11/09/18 20:00 98.7 F 87 22 122/71 96 11/09/18 19:10 87 22 96 11/09/18 18:00 22 11/09/18 15:32 97.7 F 97 H 22 147/82 95 Oxygen-Last 24 hours O2 Percentage 4 Liters = 36% O2 Percentage 5 Liters = 40% O2 Percentage 5 Liters = 40% O2 Percentage 5 Liters = 40% Oxygen Flowrate (L/min)-RT 5 Pain Assessment - Last Documented Pain Intensity 0 Pain Scale Used FLACC Intake and Output: Intake & Output 11/08/18 11/09/18 11/10/18 11/11/18 11:59 11:59 11:59 11:59 Intake Total 1160 3137 2810 Output Total 1100 2000 1450 Balance 60 1137 1360 Weight 57.6 kg 58 kg 59 kg Lab Results: Accuchecks Date 11/10/18 Date 11/10/18 Date 11/09/18 Date 11/09/18 Time 11:30 Time 07:30 Time 21:00 Time 16:30 Accucheck Value: 407 Accucheck Value: 233 Accucheck Value: 300 Accucheck Value: 313 Lab Results-Last 24 Hours 11/10/18 11/10/18 Range/Units 05:47 05:47 WBC 21.0 H (4.0-10.5) K/mm3 RBC 3.95 L (4.1-5.6) M/mm3 Hgb 11.5 L (12.5-18.0) gm/dl Hct 36.8 L (42-50) % MCV 93.2 (78-100) fl MCH 29.1 (26-32) pg MCHC 31.3 L (32-36) g/dl RDW 14.5 H (11.5-14.0) % Plt Count 257 (150-450) K/mm3 MPV 8.6 (6-9.5) fl Absolute Granulocytes 20.26 H (1.4-6.9) Segmented Neutrophils 92 H (36.-66.) % Lymphocytes (Manual) 8 L (24-44) % Toxic Granulation 1+ Platelet Estimate NORMAL (NORMAL) RBC Morphology NORMAL Sodium 141 (137-145) mmol/L Potassium 4.4 (3.5-5.1) mmol/L Chloride 107 (98-107) mmol/L Carbon Dioxide 28 (22-30) mmol/L Anion Gap 10.2 (5-15) MEQ/L BUN 18 (9-20) mg/dL Creatinine 0.57 L (0.66-1.25) mg/dL Estimated GFR > 60.0 ML/MIN Glucose 233 H (74-106) mg/dL Calcium 8.5 (8.4-10.2) mg/dL Total Bilirubin 0.20 (0.2-1.3) mg/dL AST 10 L (17-59) U/L ALT 18 (0-50) U/L Alkaline Phosphatase 54 (38-126) U/L Serum Total Protein 5.0 L (6.3-8.2) g/dL Albumin 2.5 L (3.5-5.0) g/dL Assessment/Plan (1) Acute exacerbation of chronic obstructive airways disease Current Visit: Yes Status: Acute Onset Date: ~01/29/18 Assessment & Plan: On IV rocephin day #6 - will stop zithromax, completed 5 days. Code(s): J44.1 - CHRONIC OBSTRUCTIVE PULMONARY DISEASE W (ACUTE) EXACERBATION (2) Leukocytosis Current Visit: No Status: Acute Qualifiers: Leukocytosis type: unspecified Qualified Code(s): D72.829 - Elevated white blood cell count, unspecified Assessment & Plan: LIkely due to steroids. Code(s): D72.829 - ELEVATED WHITE BLOOD CELL COUNT, UNSPECIFIED (3) Hypertension Current Visit: No Status: Chronic Qualifiers: Hypertension type: essential hypertension Qualified Code(s): I10 - Essential (primary) hypertension Assessment & Plan: BP controlled fairly well here. 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 Increasing lantus from 10 units to 15 units daily. Code(s): E11.9 - TYPE 2 DIABETES MELLITUS WITHOUT COMPLICATIONS (6) End stage COPD Current Visit: No Status: Chronic Code(s): J44.9 - CHRONIC OBSTRUCTIVE PULMONARY DISEASE, UNSPECIFIED (7) Hx pulmonary embolism Current Visit: No Status: Chronic Assessment & Plan: on Eliquis Code(s): Z86.711 - PERSONAL HISTORY OF PULMONARY EMBOLISM (8) Protein calorie malnutrition Current Visit: No Status: Chronic Qualifiers: Protein-calorie malnutrition severity: moderate Qualified Code(s): E44.0 - Moderate protein-calorie malnutrition Assessment & Plan: on mega Code(s): E46 - UNSPECIFIED PROTEIN-CALORIE MALNUTRITION
[2018-11-10] MEDS: xanAX 0.5 MG PO SCH (22:17)
[2018-11-11] MEDS: solu-MEDROL 125 MG IV SCH ×3 (04:09→16:56)
[2018-11-11] MEDS: DUONEB 0.5-3 MG/3 ml Neb IH SCH ×5 (07:12→22:34)
[2018-11-11] MEDS: NovoLOG Insulin SQ PRN ×4 (07:50→22:17)
[2018-11-11] MEDS: Glucophage 500 MG PO SCH ×2 (07:50→16:56)
[2018-11-11] MEDS: Lantus Insulin SQ SCH ×2 (07:50→08:14)
[2018-11-11] MEDS: ROCEPHIN 1 Gm-D5w 50 ml Bag** 1 G/50 ML IVPB IV SCH (09:10)
[2018-11-11] MEDS: NORVASC 5 MG PO SCH (09:11)
[2018-11-11] MEDS: Mucinex 600MG ER Tabs PO SCH ×2 (09:11→22:14)
[2018-11-11] MEDS: ELIQUIS 2.5 MG TABLET PO SCH ×2 (09:11→22:14)
[2018-11-11] MEDS: NYSTOP 30 GM CREAM TOP SCH ×2 (09:11→22:14)
[2018-11-11] MEDS: Megace 40 MG/ML PO SCH (09:11)
[2018-11-11] MEDS: Pepcid 20 MG VIAL IV SCH (09:11)
[2018-11-11] MEDS: Protonix 40MG Tablet PO SCH ×2 (09:11→22:15)
--- NOTE | 2018-11-11 13:11 | PCM.NOTE ---
Date and Time: 11/11/18 0487 Subjective Assessment: Pt would like to go home with home care, but he states he can't get up to the toilet by himself so he knows he needs a stay at [facility]. His breathing continues with SOB at times. Not feeling all that well in general today. Tolerating po although he does have complaints about the hospital food. - Review of Systems Constitutional: No Fever Respiratory: Cough, Short Of Breath Objective Exam General Appearance: no apparent distress, alert, cachetic Neurologic Exam: oriented x 3, cooperative Skin Exam: normal color, warm, dry, No rash Wound Assessment: Skin/Wound Assessment Wound/Incision Assessment Start: 11/04/18 15: 16 Text: Status: Active Freq: Q6H Protocol: Document 11/11/18 12:00 MW (Rec: 11/11/18 12:16 MW [id number]) Wound/Incision Assessment Left Upper Arm Wound Assessment Shift Assessment Wound Type Skin Tear General Appearance Unapproximated Comment tegaderm in place Left Lower Arm Wound Assessment Shift Assessment Wound Type Skin Tear Drainage Amount Minimal Drainage Description Sanguineous Primary Dressing Tegaderm Buttock Wound Assessment Shift Assessment Wound Type Pressure Ulcer Wound Stage Stage II Dressing Status Dry & Intact Drainage Amount None Topical Solution/Irrigant Medicated Ointment Comment barrier cream PRN Wound Photo Photo Taken No Respiratory Exam: lungs clear, diminished breath sounds (fair air exchange), wheezing (scattered, expiratory), No crackles/rales, No rhonchi Cardiovascular Exam: regular rate/rhythm, normal heart sounds, No murmur Gastrointestinal/Abdomen Exam: soft, normal bowel sounds, distention (as usual) , No tenderness, No mass, No guarding, No rebound Extremity Exam: normal inspection, No pedal edema, No swelling Back Exam: normal inspection, No rash OBJECTIVE DATA Vital Signs: Vital Signs - 24 hr Temp Pulse Resp BP Pulse Ox 11/11/18 12:00 98.2 F 62 20 141/78 97 11/11/18 11:12 93 H 18 96 11/11/18 11:00 20 11/11/18 07:19 73 18 97 11/11/18 07:14 98.2 F 101 H 18 161/78 98 11/11/18 07:00 18 11/11/18 03:00 22 11/11/18 02:55 98 F 92 H 28 H 136/84 96 11/10/18 23:37 98.5 F 79 21 125/77 95 11/10/18 23:10 73 20 95 11/10/18 22:00 22 11/10/18 19:53 97.9 F 95 H 22 128/78 97 11/10/18 18:56 91 H 20 98 11/10/18 18:00 18 11/10/18 16:00 98.3 F 92 H 18 108/63 98 11/10/18 15:18 102 H 22 98 11/10/18 14:20 22 Oxygen-Last 24 hours O2 Percentage 5 Liters = 40% O2 Percentage 4 Liters = 36% O2 Percentage 5 Liters = 40% O2 Percentage 5 Liters = 40% O2 Percentage 5 Liters = 40% O2 Percentage 4 Liters = 36% Pain Assessment - Last Documented Pain Intensity 0 Pain Scale Used FLACC Intake and Output: Intake & Output 11/09/18 11/10/18 11/11/18 11/12/18 11:59 11:59 11:59 11:59 Intake Total 3137 2810 3808 Output Total 1999 1450 500 Balance 1137 1360 3308 Weight 58 kg 59 kg 59.4 kg Lab Results: Accuchecks Date 11/11/18 Date 11/10/18 Date 11/10/18 Time 07:50 Time 21:00 Time 16:30 Accucheck Value: 228 Accucheck Value: 215 Assessment/Plan (1) Acute exacerbation of chronic obstructive airways disease Current Visit: Yes Status: Acute Onset Date: ~01/29/18 Assessment & Plan: He is stable, on day #7 of rocephin today. Sounds more clear than yesterday to me. Currently on solumedrol IV 80mg q6h, would consider decreasing that tomorrow. Code(s): J44.1 - CHRONIC OBSTRUCTIVE PULMONARY DISEASE W (ACUTE) EXACERBATION (2) Muscular deconditioning Current Visit: Yes Status: Acute Assessment & Plan: Will have discharge planning contact [facility]. Pt states he wants a regular diet and a single bed. Code(s): R29.898 - OTH SYMPTOMS AND SIGNS INVOLVING THE MUSCULOSKELETAL SYSTEM (3) Leukocytosis Current Visit: No Status: Acute Qualifiers: Leukocytosis type: unspecified Qualified Code(s): D72.829 - Elevated white blood cell count, unspecified Assessment & Plan: recheck labs in a.m. Code(s): D72.829 - ELEVATED WHITE BLOOD CELL COUNT, UNSPECIFIED (4) Hypertension Current Visit: No Status: Chronic Qualifiers: Hypertension type: essential hypertension Qualified Code(s): I10 - Essential (primary) hypertension Code(s): I10 - ESSENTIAL (PRIMARY) HYPERTENSION (5) DNR (do not resuscitate) Current Visit: No Status: Chronic (6) Diabetes mellitus Current Visit: No Status: Chronic Qualifiers: Diabetes mellitus type: type 2 Diabetes mellitus shelter insulin use: without shelter use Diabetes mellitus complication status: without complication Qualified Code(s): E11.9 - Type 2 diabetes mellitus without complications Code(s): E11.9 - TYPE 2 DIABETES MELLITUS WITHOUT COMPLICATIONS (7) End stage COPD Current Visit: No Status: Chronic Code(s): J44.9 - CHRONIC OBSTRUCTIVE PULMONARY DISEASE, UNSPECIFIED (8) Hx pulmonary embolism Current Visit: No Status: Chronic Assessment & Plan: on Eliquis. Code(s): Z86.711 - PERSONAL HISTORY OF PULMONARY EMBOLISM (9) Protein calorie malnutrition Current Visit: No Status: Chronic Qualifiers: Protein-calorie malnutrition severity: moderate Qualified Code(s): E44.0 - Moderate protein-calorie malnutrition Code(s): E46 - UNSPECIFIED PROTEIN-CALORIE MALNUTRITION
[2018-11-11] MEDS ORDERED: Sodium Chloride 0.9% 10 ML FLUSH Syringe IV SCH (14:00)
[2018-11-11] MEDS: xanAX 0.5 MG PO SCH (22:15)
[2018-11-12] MEDS: DUONEB 0.5-3 MG/3 ml Neb IH SCH ×6 (02:46→22:44)
[2018-11-12 05:58] LABS: Hematocrit 37.8 % (42-50); Hemoglobin 11.7 gm/dl (12.5-18.0); Mean Cell Volume 94.7 fl (78-100); Mean Corpuscular Hemoglobin 29.3 pg (26-32); Mean Platelet Volume 9.1 fl (6-9.5); Platelet Count 212 K/mm3 (150-450); Red Blood Count 3.99 M/mm3 (4.1-5.6); Red Cell Distribution Width 14.8 % (11.5-14.0); White Blood Count 21.8 K/mm3 (4.0-10.5)
[2018-11-12 06:16] LABS: ALBUMIN 2.6 g/dL (3.5-5.0); ALKALINE PHOSPHATASE 53 U/L (38-126); ANION GAP 9.9 MEQ/L (5-15); BLOOD UREA NITROGEN 23 mg/dL (9-20); CHLORIDE 108 mmol/L (98-107); Calcium 8.6 mg/dL (8.4-10.2); Carbon Dioxide 27 mmol/L (22-30); Glucose 200 mg/dL (74-106); Potassium 4.2 mmol/L (3.5-5.1); SGOT/AST 14 U/L (17-59); SGPT/ALT 22 U/L (0-50); SODIUM 141 mmol/L (137-145); Total Protein 5.1 g/dL (6.3-8.2)
[2018-11-12] MEDS: Glucophage 500 MG PO SCH ×2 (08:21→16:43)
[2018-11-12] MEDS: Protonix 40MG Tablet PO SCH ×2 (08:21→22:19)
[2018-11-12] MEDS: ELIQUIS 2.5 MG TABLET PO SCH ×2 (08:21→22:20)
[2018-11-12] MEDS: NORVASC 5 MG PO SCH (08:21)
--- NOTE | 2018-11-12 08:21 | PCM.NOTE ---
Date and Time: 11/12/18819 Subjective Assessment: patient still very weak and complaining of shortness of breath. he has decided he is willing to go for rehab stay at [facility] since he is having trouble transferring Objective Exam General Appearance: cachetic, thin Skin Exam: normal color, warm, dry Wound Assessment: Skin/Wound Assessment Wound/Incision Assessment Start: 11/04/18 15: 16 Text: Status: Active Freq: Q6H Protocol: Document 11/12/18 06:00 LB (Rec: 11/12/18 06:05 LB [id number]) Wound/Incision Assessment Left Upper Arm Wound Assessment Shift Assessment Wound Type Skin Tear General Appearance Unapproximated Comment tegaderm in place Left Lower Arm Wound Assessment Shift Assessment Wound Type Skin Tear Drainage Amount Minimal Drainage Description Sanguineous Primary Dressing Tegaderm Buttock Wound Assessment Shift Assessment Wound Type Pressure Ulcer Wound Stage Stage II Dressing Status Dry & Intact Drainage Amount None Topical Solution/Irrigant Medicated Ointment Comment barrier cream PRN Wound Photo Photo Taken No Respiratory Exam: wheezing Cardiovascular Exam: regular rate/rhythm, normal heart sounds Gastrointestinal/Abdomen Exam: soft, No tenderness, No mass Extremity Exam: normal inspection, normal range of motion OBJECTIVE DATA Vital Signs: Vital Signs - 24 hr Temp Pulse Resp BP Pulse Ox 11/12/18 07:41 98.1 F 95 H 18 148/71 96 11/12/18 07:02 96 H 24 93 L 11/12/18 03:00 20 11/12/18 02:57 98.6 F 88 20 152/89 98 11/12/18 02:46 88 20 98 11/11/18 23:52 98.6 F 96 H 19 123/73 96 11/11/18 23:00 19 11/11/18 22:34 96 H 19 96 11/11/18 20:00 98.5 F 89 16 123/78 91 L 11/11/18 19:00 16 11/11/18 18:38 97 H 18 93 L 11/11/18 16:00 98.1 F 73 18 155/74 97 11/11/18 15:45 88 20 96 11/11/18 15:00 18 11/11/18 12:00 98.2 F 62 20 141/78 97 11/11/18 11:12 93 H 18 96 11/11/18 11:00 20 Oxygen-Last 24 hours O2 Percentage 5 Liters = 40% O2 Percentage 5 Liters = 40% O2 Percentage 5 Liters = 40% O2 Percentage 5 Liters = 40% O2 Percentage 5 Liters = 40% O2 Percentage 5 Liters = 40% Pain Assessment - Last Documented Pain Intensity 0 Pain Scale Used [facility] Intake and Output: Intake & Output 11/09/18 11/10/18 11/11/18 11/12/18 11:59 11:59 11:59 11:59 Intake Total 3137 2810 3808 880 Output Total 1999 1450 500 700 Balance 1137 1360 3308 180 Weight 58 kg 59 kg 59.4 kg 59.6 kg Lab Results: Accuchecks Date 11/11/18 Date 11/11/18 Date 11/11/18 Time 21:00 Time 16:57 Time 12:44 Accucheck Value: 241 Accucheck Value: 228 Accucheck Value: 273 Lab Results-Last 24 Hours 11/12/18 11/12/18 Range/Units 05:33 05:33 WBC 21.8 H (4.0-10.5) K/mm3 RBC 3.99 L (4.1-5.6) M/mm3 Hgb 11.7 L (12.5-18.0) gm/dl Hct 37.8 L (42-50) % MCV 94.7 (78-100) fl MCH 29.3 (26-32) pg MCHC 31.0 L (32-36) g/dl RDW 14.8 H (11.5-14.0) % Plt Count 212 (150-450) K/mm3 MPV 9.1 (6-9.5) fl Sodium 141 (137-145) mmol/L Potassium 4.2 (3.5-5.1) mmol/L Chloride 108 H (98-107) mmol/L Carbon Dioxide 27 (22-30) mmol/L Anion Gap 9.9 (5-15) MEQ/L BUN 23 H (9-20) mg/dL Creatinine 0.60 L (0.66-1.25) mg/dL Estimated GFR > 60.0 ML/MIN Glucose 200 H (74-106) mg/dL Calcium 8.6 (8.4-10.2) mg/dL Total Bilirubin 0.30 (0.2-1.3) mg/dL AST 14 L (17-59) U/L ALT 22 (0-50) U/L Alkaline Phosphatase 53 (38-126) U/L Serum Total Protein 5.1 L (6.3-8.2) g/dL Albumin 2.6 L (3.5-5.0) g/dL Assessment/Plan (1) COPD with exacerbation Current Visit: No Status: Acute Assessment & Plan: change to po meds with doxy and prednisone, continue current meds and will discharge to [facility] when bed available Code(s): J44.1 - CHRONIC OBSTRUCTIVE PULMONARY DISEASE W (ACUTE) EXACERBATION (2) End stage COPD Current Visit: No Status: Chronic Code(s): J44.9 - CHRONIC OBSTRUCTIVE PULMONARY DISEASE, UNSPECIFIED (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
[2018-11-12] MEDS: Lantus Insulin SQ SCH (08:22)
[2018-11-12] MEDS: Megace 40 MG/ML PO SCH (08:22)
[2018-11-12] MEDS: NYSTOP 30 GM CREAM TOP SCH ×2 (08:22→22:24)
[2018-11-12] MEDS: Mucinex 600MG ER Tabs PO SCH ×2 (08:22→22:20)
[2018-11-12] MEDS: NovoLOG Insulin SQ PRN ×3 (08:23→22:20)
[2018-11-12] MEDS: Vibramycin 100 MG PO SCH ×2 (09:17→16:43)
[2018-11-12] MEDS: DELTASONE 20 MG PO SCH (09:17)
[2018-11-12 10:58] LABS: BAND 1 % (0.0-2.0); Lymphocytes 2 % (24-44); Monocyte 3 % (0.0-12.0); Neutrophils 94 % (36.-66.); Platelet Estimate NORMAL (NORMAL); Total Cells Counted 100; Toxic Granulation 1+
[2018-11-12] MEDS: xanAX 0.5 MG PO SCH (22:19)
[2018-11-13] MEDS: DUONEB 0.5-3 MG/3 ml Neb IH SCH ×2 (03:18→07:11)
[2018-11-13 08:10] VITALS: BP 179/89; PULSE 99; O2SAT 96
[2018-11-13] MEDS: Lantus Insulin SQ SCH (08:31)
[2018-11-13] MEDS: Glucophage 500 MG PO SCH (08:31)
[2018-11-13] MEDS: Vibramycin 100 MG PO SCH (08:31)
--- NOTE | 2018-11-13 08:43 | PCM.DS ---
Discharge Summary Date of Admission: 11/05/18 11:40 Admitting Physician: DWAYNE VANEGAS Primary Care Provider: IBETH JAEGER Allergies Allergies No Known Drug Allergies Allergy (Verified 11/04/18 12:08) Hospital Summary - Hospital Course Hospital Course: patient was admitted with copd exacerbation, doing well at this time. he has endstage disease, weakness and having difficulty with transfer and ambulation so going to [facility] for rehab. - Vitals & Intake/Output Vital Signs: Vital Signs Temperature 99 F 11/13/18 03:46 Pulse Rate 99 H 11/13/18 08:00 Respiratory Rate 20 11/13/18 08:00 Blood Pressure 179/89 11/13/18 08:00 O2 Sat by Pulse Oximetry 96 11/13/18 08:00 Oxygen-Last Documented O2 Percentage 5 Liters = 40% Intake & Output: Intake & Output 11/10/18 11/11/18 11/12/18 11/13/18 11:59 11:59 11:59 11:59 Intake Total 2810 3808 880 480 Output Total 1450 101 285 4339 Balance 1360 3308 -70 -570 Weight 59 kg 59.4 kg 59.6 kg 60.8 kg - Lab Result Diagrams: 11/12/18 05:33 11/12/18 05:33 Lab Results-Last 24 Hrs: Accuchecks Date 11/12/18 Date 11/12/18 Time 16:30 Time 11:30 Accucheck Value: 261 Accucheck Value: 371 Accucheck Value: 183 Lab Results-Last 24 Hours 11/12/18 Range/Units 05:33 Segmented Neutrophils 94 H (36.-66.) % Band Neutrophils 1 (0.0-2.0) % Lymphocytes (Manual) 2 L (24-44) % Monocytes (Manual) 3 (0.0-12.0) % Toxic Granulation 1+ Platelet Estimate NORMAL (NORMAL) RBC Morphology NORMAL Micro Results-Entire Visit: Accuchecks Date 11/12/18 Date 11/12/18 Time 16:30 Time 11:30 Accucheck Value: 261 Accucheck Value: 371 Accucheck Value: 183 - Procedures and Test Procedures and Tests throughout Hospitalization: Therapy Orders & Screens 11/04/18 13:59 Oxygen Venti-Mask 31% Comment: Peak Expiratory Flow Rate BEFORE&AFTER NEB TX Comment: Before and after nebulizer treatments Reason For Exam: 11/04/18 15:16 OT Screen per Nursing Assess Comment: Protocol Order Physician Instructions: Greater than 3 points order OT Admission Screening Reason For Exam: Triggered on Admission Diagnosis: COPD exacerbation Open Wound/Cellutlitis/Pressure Ulcers: Yes Acute Fx/ORIF/Change in wt bearing status: No Severe MUSCULOSKELETAL pain: No ADL Dysfunction: Yes Acute CVA w/Hemiparesis/Hemiplegia: No Decreased Functional Mobility/Strength: Yes Sprain/Strain: No Acute Post-op Mobility Dysfunction: No Total Points: 9 PT Screen per Nursing Assess Comment: Protocol Order Physician Instructions: Greater than 3 points order PT Admission Screenin Reason For Exam: Triggered on Admission Diagnosis: COPD exacerbation Open Wound/Cellutlitis/Pressure Ulcers: Yes Acute Fx/ORIF/Change in wt bearing status: No Severe MUSCULOSKELETAL pain: No ADL Dysfunction: Yes Acute CVA w/Hemiparesis/Hemiplegia: No Decreased Functional Mobility/Strength: Yes Sprain/Strain: No Acute Post-op Mobility Dysfunction: No Total Points: 9 Smoking Cessation Education ONCE Comment: Diagnosis: COPD exacerbation Smoking Status: Current every day smoker How long have you smoked: 50 Have you smoked in the past 12 months: Yes Approximately how many cigarettes per day: 40 Do you dip or chew tobacco: No If,Former Smoker,when did you quit: 3 years ago 11/04/18 16:31 Respiratory Therapy Assessment DAILY Comment: Diagnosis: COPD exacerbation 11/05/18 19:13 Oxygen Nasal Cannula 5 lpm Comment: Diagnosis: COPD exacerbation Discharge Exam General Appearance: no apparent distress, alert Eye Exam: PERRL, EOMI, eyes nml inspection Respiratory Exam: prolonged expirations, rhonchi Cardiovascular Exam: regular rate/rhythm, normal heart sounds Gastrointestinal/Abdomen Exam: soft, No tenderness, No mass Extremity Exam: normal inspection, normal range of motion Skin Exam: normal color, warm, dry Wound Assessment: Skin/Wound Assessment Wound/Incision Assessment Start: 11/04/18 15: 16 Text: Status: Active Freq: Q6H Protocol: Document 11/13/18 06:00 AR (Rec: 11/13/18 06:28 AR [id number]) Wound/Incision Assessment Left Upper Arm Wound Assessment Shift Assessment Wound Type Skin Tear General Appearance Unapproximated Comment tegaderm in place Left Lower Arm Wound Assessment Shift Assessment Wound Type Skin Tear Drainage Amount Minimal Drainage Description Sanguineous Primary Dressing Tegaderm Buttock Wound Assessment Shift Assessment Wound Type Pressure Ulcer Wound Stage Stage II Drainage Amount None Topical Solution/Irrigant Medicated Ointment Comment barrier cream PRN Wound Photo Photo Taken No Final Diagnosis/Problem List - Final Discharge Diagnosis/Problem (1) COPD with exacerbation Current Visit: No Status: Acute Assessment & Plan: to [facility] at this time Code(s): J44.1 - CHRONIC OBSTRUCTIVE PULMONARY DISEASE W (ACUTE) EXACERBATION (2) End stage COPD Current Visit: No Status: Chronic Code(s): J44.9 - CHRONIC OBSTRUCTIVE PULMONARY DISEASE, UNSPECIFIED (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 - Discharge Disposition: Home, Self-Care Condition: Good Prescriptions: New Prednisone 20 mg [Deltasone 20 mg] 60 mg PO DAILY #18 tablet Doxycycline Hyclate 100 mg [Vibramycin 100 MG] 100 mg PO BIDWM #14 tab Continue Apixaban [Eliquis 5 mg Tablet] 5 mg PO BID Ipratropium/Albuterol Sulfate [Iprat-Albut 0.5-3(2.5) mg/3 ml] 3 ml IH Q4HPRN PRN PRN Reason: Shortness Of Breath Fluticasone/Umeclidin/Vilanter [Trelegy Ellipta 100-62.5-25] 1 puff IH DAILY Metformin HCl 500 mg [Glucophage 500 MG] 500 mg PO BID #60 tablet PANTOPRAZOLE 40 mg Tablet [Protonix 40MG Tablet] 40 mg PO BID Amlodipine Besylate 5 mg [Norvasc 5 mg] 5 mg PO QAM #30 tablet Prednisone 10 mg [Deltasone 10 mg] 10 mg PO UD #60 tablet Alprazolam 0.5 mg PO HS PRN PRN #30 tablet PRN Reason: Anxiety Hydrocodone/APAP 10/325 mg [Esmond 10/325 MG Tablet] 1 tab PO Q4H PRN PRN #150 tablet MDD 6 PRN Reason: Pain Follow up with: IBETH JAEGER MD [Primary Care Provider] - 1 Week
[2018-11-13] MEDS: Protonix 40MG Tablet PO SCH (09:24)
[2018-11-13] MEDS: Megace 40 MG/ML PO SCH (09:25)
[2018-11-13] MEDS: NORVASC 5 MG PO SCH (09:25)
[2018-11-13] MEDS: DELTASONE 20 MG PO SCH (09:25)
[2018-11-13] MEDS: Mucinex 600MG ER Tabs PO SCH (09:25)
[2018-11-13] MEDS: ELIQUIS 2.5 MG TABLET PO SCH (09:25)
[2018-11-13] MEDS: NYSTOP 30 GM CREAM TOP SCH (09:28)
== END 2018-11-13 10:45 | DRG 191 ==
LOC: ED 11:52 → MED SURG 13:58 → OBSVTOIN 11-05 11:40
PROVIDERS: ADMIT Family Medicine; ATTEND Family Medicine
DX: J44.1 Chronic obstructive pulmonary disease with (acute) exacerbation (principal); E46 Unspecified protein-calorie malnutrition; R53.1 Weakness; L89.322 Pressure ulcer of left buttock, stage 2; J60 Coalworker's pneumoconiosis; E11.9 Type 2 diabetes mellitus without complications; R10.9 Unspecified abdominal pain; I10 Essential (primary) hypertension; R29.898 Other symptoms and signs involving the musculoskeletal system; D72.829 Elevated white blood cell count, unspecified; Z86.711 Personal history of pulmonary embolism; Z79.899 Other long term (current) drug therapy; Z79.01 Long term (current) use of anticoagulants
CPT/HCPCS: 36415; 71045; 74021; 80053; 82962; 83735; 83880; 85025; 85027; 93005; 93268; 94640; 94760; 94761; 94762; 94770; 96360; 96365; 96368; 99284; 99285; J0456; J0696; J1650; J2930; A9270-GY; G0378

== ENCOUNTER → 2018-11-06 | Emergency (ER) | payer SELFPAY | LOC: ER - EH 23:08 ==

== ENCOUNTER 2019-01-25 09:14 | Emergency (ER) | payer BLACK LUNG, MEDICARE, OTHER ==
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
[2019-01-25 10:11] LABS: BASOPHIL % 0.1 % (0.0-0.4); Basophil (Absolute #) 0.01 (0-0.4); Eosinophil % 0.2 % (0.00-5.0); Eosinophil (Absolute #) 0.02 (0-0.5); Granulocyte Absolute (ANC) 5.36 (1.4-6.9); Granulocytes % 64.5 % (36.0-66.0); Hematocrit 34.3 % (42-50); Hemoglobin 10.5 gm/dl (12.5-18.0); Lymphocyte (Absolute #) 2.51 (1.0-4.6); Lymphocytes % 30.2 % (24.0-44.0); Mean Cell Volume 97.2 fl (78-100); Mean Corpuscular Hemoglobin 29.7 pg (26-32); Mean Corpuscular Hgb Concent. 30.6 g/dl (32-36); Mean Platelet Volume 8.5 fl (6-9.5); Monocyte (Absolute #) 0.42 (0.0-1.3); Platelet Count 289 K/mm3 (150-450); Red Blood Count 3.53 M/mm3 (4.1-5.6); Red Cell Distribution Width 13.8 % (11.5-14.0); White Blood Count 8.3 K/mm3 (4.0-10.5)
[2019-01-25] MEDS ORDERED: DUONEB 0.5-3 MG/3 ml Neb IH ONE (10:22)
[2019-01-25] MEDS: DUONEB 0.5-3 MG/3 ml Neb IH ONE (10:23)
[2019-01-25 10:26] LABS: ALBUMIN 3.6 g/dL (3.5-5.0); ALKALINE PHOSPHATASE 55 U/L (38-126); ANION GAP 9.6 MEQ/L (5-15); BLOOD UREA NITROGEN 14 mg/dL (9-20); CHLORIDE 107 mmol/L (98-107); Calcium 9.1 mg/dL (8.4-10.2); Carbon Dioxide 31 mmol/L (22-30); Creatinine 1 0.68 mg/dL (0.66-1.25); Glucose 128 mg/dL (74-106); MAGNESIUM 1.8 mg/dL (1.6-2.3); NT PRO BNP 206 pg/mL (0-900); Potassium 4.7 mmol/L (3.5-5.1); SGOT/AST 19 U/L (17-59); SGPT/ALT 11 U/L (0-50); SODIUM 143 mmol/L (137-145); Total Protein 6.6 g/dL (6.3-8.2)
--- NOTE | 2019-01-25 10:38 | XRAY ---
Indication: Short of breath, COPD, black lung, and emphysema. Comparison: November 04 and 2018. Portable chest unchanged again demonstrating COPD, bilateral scattered fibrosis/scarring, right lung postsurgical changes, bibasilar pleural effusions/thickening, osteopenia/degenerative changes, and old left rib fractures. Heart is not enlarged. No new cardiopulmonary abnormalities.
[2019-01-25 11:26] VITALS: O2SAT 98
[2019-01-25] MEDS ORDERED: solu-MEDROL 125 MG ONE (11:35)
[2019-01-25] MEDS: solu-MEDROL 125 MG IV ONE (11:38)
[2019-01-25 11:40] VITALS: BP 115/75; PULSE 80
== END 2019-01-25 11:52 | disposition home or self-care (01) ==
LOC: ED 09:14
DX: J44.1 Chronic obstructive pulmonary disease with (acute) exacerbation (principal)
CPT/HCPCS: 36000; 36415; 71045; 80053; 83605; 83735; 83880; 84484; 85025; 93005; 93041; 94150; 94640; 96374; 99281; 99284; 99291; J2930; A9270-GY

== ENCOUNTER 2019-01-25 14:21 | Emergency (ER) | payer BLACK LUNG, MEDICARE, OTHER ==
[2012-02-18 12:05] VITALS: BP 132/70
== END 2019-01-25 15:24 | disposition home or self-care (01) ==
LOC: ED 14:21
DX: Z53.9 Procedure and treatment not carried out, unspecified reason (principal)
CPT/HCPCS: 99281

== ENCOUNTER 2019-01-28 19:44 | Inpatient (IN) | payer BLACK LUNG, MEDICARE, OTHER ==
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
[2019-01-28 20:47] LABS: A-aADO2 148; ABG POTASSIUM 3.5 (3.5-5.1); ABG SITE RIGHT BRACHIAL; ARTERIAL BLD GAS O2 SATURATION 97.1 % (95-100); ARTERIAL BLOOD GAS BASE EXCESS 6.7 (-2.0-2.0); ARTERIAL BLOOD GAS FIO2 40 %; ARTERIAL BLOOD GAS PCO2 48 mmHg (35-45); ARTERIAL BLOOD GAS PO2 77 mmHg (75-100); ARTERIAL BLOOD GAS pH 7.43 (7.35-7.45); CARBOXYHEMOGLOBIN 1.3 % THgb (0.0-6.9); HCO3- 31.9 (22-28); HGB O2 SAT 95.4 g/dF (94-100); Methhemoglobin 0.5 % (1.4-1.5); paO2 pAO1 0.34
[2019-01-28 21:05] LABS: BASOPHIL % 0.3 % (0.0-0.4); Basophil (Absolute #) 0.02 (0-0.4); Eosinophil % 1.7 % (0.00-5.0); Eosinophil (Absolute #) 0.13 (0-0.5); Granulocyte Absolute (ANC) 4.76 (1.4-6.9); Hematocrit 33.9 % (42-50); Hemoglobin 10.4 gm/dl (12.5-18.0); Lymphocyte (Absolute #) 2.32 (1.0-4.6); Lymphocytes % 29.7 % (24.0-44.0); Mean Cell Volume 97.7 fl (78-100); Mean Corpuscular Hgb Concent. 30.7 g/dl (32-36); Mean Platelet Volume 8.3 fl (6-9.5); Monocyte (Absolute #) 0.57 (0.0-1.3); Monocytes % 7.3 % (0.0-12.0); Platelet Count 263 K/mm3 (150-450); Red Blood Count 3.47 M/mm3 (4.1-5.6); Red Cell Distribution Width 13.9 % (11.5-14.0); White Blood Count 7.8 K/mm3 (4.0-10.5)
[2019-01-28 21:08] LABS: Mean Corpuscular Hemoglobin 29.9 pg (26-32)
[2019-01-28 21:27] LABS: ALBUMIN 3.4 g/dL (3.5-5.0); ALKALINE PHOSPHATASE 49 U/L (38-126); ANION GAP 11.5 MEQ/L (5-15); BLOOD UREA NITROGEN 17 mg/dL (9-20); CHLORIDE 110 mmol/L (98-107); Calcium 8.8 mg/dL (8.4-10.2); Carbon Dioxide 27 mmol/L (22-30); Creatinine 1 0.56 mg/dL (0.66-1.25); Glucose 139 mg/dL (74-106); MAGNESIUM 1.9 mg/dL (1.6-2.3); NT PRO BNP 211 pg/mL (0-900); Potassium 3.8 mmol/L (3.5-5.1); SGOT/AST 27 U/L (17-59); SGPT/ALT 16 U/L (0-50); SODIUM 146 mmol/L (137-145); Total Protein 6.1 g/dL (6.3-8.2)
[2019-01-28] MEDS ORDERED: TYLENOL 325 MG PO PRN (22:23)
[2019-01-28] MEDS ORDERED: Zofran 4 MG/2 ML VIAL IV PRN (22:23)
[2019-01-28] MEDS: solu-MEDROL 125 MG IV SCH (22:45)
[2019-01-28] MEDS: Sodium Chloride 0.9% 10 ML FLUSH Syringe IV SCH (22:58)
[2019-01-28] MEDS: DUONEB 0.5-3 MG/3 ml Neb IH SCH (23:35)
[2019-01-29] MEDS: DUONEB 0.5-3 MG/3 ml Neb IH SCH ×6 (03:21→23:39)
[2019-01-29] MEDS: solu-MEDROL 125 MG IV SCH ×3 (05:47→21:21)
[2019-01-29] MEDS: Sodium Chloride 0.9% 10 ML FLUSH Syringe IV SCH ×3 (05:47→21:20)
[2019-01-29 05:58] LABS: Hematocrit 34.3 % (42-50); Hemoglobin 10.6 gm/dl (12.5-18.0); Mean Cell Volume 96.1 fl (78-100); Mean Corpuscular Hgb Concent. 30.9 g/dl (32-36); Mean Platelet Volume 8.3 fl (6-9.5); Platelet Count 278 K/mm3 (150-450); Red Blood Count 3.57 M/mm3 (4.1-5.6); Red Cell Distribution Width 13.8 % (11.5-14.0); White Blood Count 6.9 K/mm3 (4.0-10.5)
[2019-01-29 06:01] LABS: Mean Corpuscular Hemoglobin 29.6 pg (26-32)
[2019-01-29 06:20] LABS: ALBUMIN 3.3 g/dL (3.5-5.0); ALKALINE PHOSPHATASE 55 U/L (38-126); ANION GAP 8.7 MEQ/L (5-15); BLOOD UREA NITROGEN 16 mg/dL (9-20); CHLORIDE 110 mmol/L (98-107); Calcium 8.8 mg/dL (8.4-10.2); Carbon Dioxide 30 mmol/L (22-30); Creatinine 1 0.54 mg/dL (0.66-1.25); Glucose 244 mg/dL (74-106); NT PRO BNP 183 pg/mL (0-900); Potassium 4.4 mmol/L (3.5-5.1); SGOT/AST 15 U/L (17-59); SGPT/ALT 15 U/L (0-50); SODIUM 144 mmol/L (137-145)
[2019-01-29] MEDS: Advair Hfa 115/21 Common canister IH SCH ×2 (06:58→19:38)
--- NOTE | 2019-01-29 09:04 | XRAY ---
Indication: Short of breath. COPD. Comparison: January 25, 2019. Portable chest less inflated with grossly stable COPD, bilateral scattered fibrosis/scarring, right lung postsurgical changes, bibasilar pleural effusions/thickening, osteopenia/degenerative changes, and old left rib fractures. Heart is not enlarged. No new cardiopulmonary abnormalities.
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
[2019-01-29 09:32] LABS: Lymphocytes 2 % (24-44); Monocyte 1 % (0.0-12.0); Neutrophils 97 % (36.-66.); Platelet Estimate NORMAL (NORMAL); Total Cells Counted 100
[2019-01-29] MEDS ORDERED: NON-FORMULARY ITEM (Apixaban*** [Eliquis 5 Mg Tablet***] 5 MG) PO SCH (10:00)
[2019-01-29] MEDS ORDERED: Zithromax 500 MG/ 250 ML NaCl Premix 500 MG/250 ML IVPB IV SCH ×2 (10:00→22:00)
[2019-01-29] MEDS ORDERED: ROCEPHIN 1 Gm-D5w 50 ml Bag** 1 G/50 ML IVPB IV SCH ×2 (10:00→22:00)
[2019-01-29] MEDS: Protonix 40MG Tablet PO SCH (10:03)
[2019-01-29] MEDS: Glucophage 500 MG PO SCH ×3 (10:03→16:18)
[2019-01-29] MEDS: ELIQUIS 2.5 MG TABLET PO SCH ×2 (10:03→21:21)
[2019-01-29] MEDS: xanAX 0.5 MG PO PRN (16:18)
[2019-01-29] MEDS: Tums EX 750 MG PO PRN (23:10)
[2019-01-30] MEDS: DUONEB 0.5-3 MG/3 ml Neb IH SCH ×6 (03:07→23:31)
[2019-01-30] MEDS: xanAX 0.5 MG PO PRN (04:03)
[2019-01-30] MEDS: Sodium Chloride 0.9% 10 ML FLUSH Syringe IV SCH ×2 (05:30→13:30)
[2019-01-30] MEDS: solu-MEDROL 125 MG IV SCH ×2 (05:30→13:29)
[2019-01-30] MEDS: PATIENT OWN MEDICATION PO SCH ×2 (06:49→12:45)
[2019-01-30] MEDS: ELIQUIS 2.5 MG TABLET PO SCH ×2 (08:52→22:03)
[2019-01-30] MEDS: Protonix 40MG Tablet PO SCH (08:52)
[2019-01-30] MEDS: Glucophage 500 MG PO SCH ×2 (08:52→19:46)
--- NOTE | 2019-01-30 09:08 | PCM.NOTE ---
Date and Time: 01/30/19904 Subjective Assessment: patient reports he is feeling some better since admission, continues to have significant dyspnea with minimal exertion. has some cough and rattling in his chest Objective Exam General Appearance: cachetic Neurologic Exam: alert, oriented x 3 Skin Exam: normal color, warm, dry Wound Assessment: Skin/Wound Assessment Wound/Incision Assessment Start: 01/28/19 23: 53 Text: Status: Active Freq: Q6H Protocol: Document 01/30/19 08:00 [facility] (Rec: 01/30/19 09:02 CCA [id number]) Wound/Incision Assessment Upper Coccyx Wound Assessment Shift Assessment Wound Type Pressure Ulcer Wound Stage Stage I Drainage Amount None Comment blanchable reddened area to coccyx-barrier cream applied Wound Photo Photo Taken No Respiratory Exam: prolonged expirations, wheezing Cardiovascular Exam: regular rate/rhythm, normal heart sounds Gastrointestinal/Abdomen Exam: soft, No tenderness, No mass OBJECTIVE DATA Vital Signs: Vital Signs - 24 hr Temp Pulse Resp BP Pulse Ox 01/30/19 07:43 97.5 F 85 16 119/62 95 01/30/19 06:52 75 18 98 01/30/19 04:00 97.2 F 85 20 125/62 96 01/30/19 03:07 97 H 20 97 01/30/19 00:13 98.0 F 98 H 20 113/59 96 01/29/19 23:40 98 H 22 96 01/29/19 20:05 98.4 F 82 22 142/65 94 L 01/29/19 19:41 87 18 97 01/29/19 16:00 98.3 F 88 18 121/70 96 01/29/19 14:43 80 20 01/29/19 11:23 98.2 F 78 18 128/71 100 Oxygen-Last 24 hours O2 Percentage 5 Liters = 40% O2 Percentage 5 Liters = 40% O2 Percentage 5 Liters = 40% O2 Percentage 5 Liters = 40% O2 Percentage 4 Liters = 36% O2 Percentage 4 Liters = 36% Pain Assessment - Last Documented Pain Intensity 0 Pain Scale Used 0-10 Pain Scale Intake and Output: Intake & Output 01/27/19 01/28/19 01/29/19 01/30/19 11:59 11:59 11:59 11:59 Intake Total 480 1578 Output Total 300 1750 Balance 180 -172 Weight 53 kg Lab Results: Lab Results-Last 24 Hours 01/29/19 01/29/19 01/29/19 Range/Units 05:08 05:08 08:45 Segmented Neutrophils 97 H (36.-66.) % Lymphocytes (Manual) 2 L (24-44) % Monocytes (Manual) 1 (0.0-12.0) % Platelet Estimate NORMAL (NORMAL) RBC Morphology NORMAL Hemoglobin A1c 6.49 H (4.5-6.0) % Troponin I < 0.012 (0.000-0.034) ng/mL Radiology Exams: Radiology Procedures Category Date Time Status CHEST 1 VIEW (PORTABLE) Routine Exams 01/28/19 21:10 Completed Multi-Disciplinary Progress Notes: Multi-Disciplinary Progress Notes 01/29/19 20:30 Respiratory Note by Reg Herndon PT REFUSED ADV 115 MDI [place]. HAS HAD THRUSH IN THE PAST. IS CALLING FAMILY TO SEE IF THEY CAN BRING IN RooT. Initialized on 01/29/19 20:30 - END OF NOTE Assessment/Plan (1) COPD exacerbation Current Visit: Yes Status: Acute Assessment & Plan: continue rocephin/zithromax and IV solu medrol, will decrease to 80mg IV q6hrs from 125mg. Code(s): J44.1 - CHRONIC OBSTRUCTIVE PULMONARY DISEASE W (ACUTE) EXACERBATION (2) Chronic hypoxemic respiratory failure Current Visit: No Status: Chronic (3) DNR (do not resuscitate) Current Visit: No Status: Chronic
[2019-01-31] MEDS: DUONEB 0.5-3 MG/3 ml Neb IH SCH ×6 (03:20→23:37)
[2019-01-31] MEDS: Sodium Chloride 0.9% 10 ML FLUSH Syringe IV SCH ×3 (03:52→23:29)
[2019-01-31] MEDS: solu-MEDROL 125 MG IV SCH ×3 (03:52→20:33)
[2019-01-31 04:50] LABS: BASOPHIL % 0.1 % (0.0-0.4); Basophil (Absolute #) 0.01 (0-0.4); Eosinophil % 0.1 % (0.00-5.0); Eosinophil (Absolute #) 0.01 (0-0.5); Granulocyte Absolute (ANC) 15.05 (1.4-6.9); Granulocytes % 86.9 % (36.0-66.0); Hematocrit 31.5 % (42-50); Hemoglobin 9.7 gm/dl (12.5-18.0); Lymphocyte (Absolute #) 1.47 (1.0-4.6); Lymphocytes % 8.5 % (24.0-44.0); Mean Cell Volume 96.9 fl (78-100); Mean Corpuscular Hemoglobin 29.8 pg (26-32); Mean Corpuscular Hgb Concent. 30.8 g/dl (32-36); Mean Platelet Volume 8.4 fl (6-9.5); Monocyte (Absolute #) 0.77 (0.0-1.3); Monocytes % 4.4 % (0.0-12.0); Platelet Count 278 K/mm3 (150-450); Red Blood Count 3.25 M/mm3 (4.1-5.6); Red Cell Distribution Width 13.4 % (11.5-14.0); White Blood Count 17.3 K/mm3 (4.0-10.5)
[2019-01-31 04:55] LABS: ANION GAP 8.5 MEQ/L (5-15); BLOOD UREA NITROGEN 23 mg/dL (9-20); CHLORIDE 104 mmol/L (98-107); Calcium 8.7 mg/dL (8.4-10.2); Carbon Dioxide 31 mmol/L (22-30); Creatinine 1 0.59 mg/dL (0.66-1.25); Glucose 210 mg/dL (74-106); Potassium 4.5 mmol/L (3.5-5.1); SODIUM 139 mmol/L (137-145)
[2019-01-31] MEDS: PATIENT OWN MEDICATION PO SCH (06:29)
[2019-01-31] MEDS: Glucophage 500 MG PO SCH ×2 (07:53→17:09)
--- NOTE | 2019-01-31 08:40 | PCM.NOTE ---
Date and Time: 01/31/19837 Subjective Assessment: patient had a rough night, unable to sleep much. apparently lost IV access. Objective Exam General Appearance: thin Neurologic Exam: alert, oriented x 3 Skin Exam: normal color, warm, dry Wound Assessment: Skin/Wound Assessment Wound/Incision Assessment Start: 01/28/19 23: 53 Text: Status: Active Freq: Q6H Protocol: Document 01/31/19 08:00 RDUHNE (Rec: 01/31/19 08:21 RDUHNE [id number]) Wound/Incision Assessment Upper Coccyx Wound Assessment Shift Assessment Wound Type Pressure Ulcer Drainage Amount None Comment blanchable reddened area to coccyx-barrier cream applied no change Wound Photo Photo Taken No Respiratory Exam: prolonged expirations, rhonchi Cardiovascular Exam: regular rate/rhythm, normal heart sounds Gastrointestinal/Abdomen Exam: soft, No tenderness, No mass Extremity Exam: normal inspection, normal range of motion OBJECTIVE DATA Vital Signs: Vital Signs - 24 hr Temp Pulse Resp BP Pulse Ox 01/31/19 07:38 97.8 F 71 18 156/75 99 01/31/19 06:32 71 18 99 01/31/19 04:00 98.4 F 82 20 159/73 98 01/31/19 03:20 82 20 98 01/31/19 00:00 97.9 F 83 21 123/68 97 01/30/19 23:33 76 22 95 01/30/19 20:00 97.6 F 84 22 120/64 96 01/30/19 19:14 84 22 96 01/30/19 16:00 97.8 F 80 18 145/56 97 01/30/19 15:04 80 18 99 01/30/19 12:00 98.4 F 84 18 121/61 99 01/30/19 10:34 84 18 99 Oxygen-Last 24 hours O2 Percentage 5 Liters = 40% O2 Percentage 5 Liters = 40% O2 Percentage 5 Liters = 40% O2 Percentage 5 Liters = 40% O2 Percentage 5 Liters = 40% O2 Percentage 5 Liters = 40% Pain Assessment - Last Documented Pain Intensity 0 Pain Scale Used 0-10 Pain Scale Intake and Output: Intake & Output 01/28/19 01/29/19 01/30/19 01/31/19 11:59 11:59 11:59 11:59 Intake Total 480 8078 1920 Output Total 177 6520 2150 Balance 180 -172 -230 Weight 53 kg 53 kg Lab Results: Lab Results-Last 24 Hours 01/31/19 01/31/19 Range/Units 04:15 04:15 WBC 17.3 H (4.0-10.5) K/mm3 RBC 3.25 L (4.1-5.6) M/mm3 Hgb 9.7 L (12.5-18.0) gm/dl Hct 31.5 L (42-50) % MCV 96.9 (78-100) fl MCH 29.8 (26-32) pg MCHC 30.8 L (32-36) g/dl RDW 13.4 (11.5-14.0) % Plt Count 278 (150-450) K/mm3 MPV 8.4 (6-9.5) fl Gran % 86.9 H (36.0-66.0) % Eos # (Auto) 0.01 (0-0.5) Absolute Lymphs (auto) 1.47 (1.0-4.6) Absolute Monos (auto) 0.77 (0.0-1.3) Lymphocytes % 8.5 L (24.0-44.0) % Monocytes % 4.4 (0.0-12.0) % Eosinophils % 0.1 (0.00-5.0) % Basophils % 0.1 (0.0-0.4) % Absolute Granulocytes 15.05 H (1.4-6.9) Basophils # 0.01 (0-0.4) Sodium 139 (137-145) mmol/L Potassium 4.5 (3.5-5.1) mmol/L Chloride 104 (98-107) mmol/L Carbon Dioxide 31 H (22-30) mmol/L Anion Gap 8.5 (5-15) MEQ/L BUN 23 H (9-20) mg/dL Creatinine 0.59 L (0.66-1.25) mg/dL Estimated GFR > 60.0 ML/MIN Glucose 210 H (74-106) mg/dL Calcium 8.7 (8.4-10.2) mg/dL Assessment/Plan (1) COPD exacerbation Current Visit: Yes Status: Acute Assessment & Plan: continue IV solu medrol, rocephin and zithromax. Code(s): J44.1 - CHRONIC OBSTRUCTIVE PULMONARY DISEASE W (ACUTE) EXACERBATION (2) Chronic hypoxemic respiratory failure Current Visit: No Status: Chronic (3) DNR (do not resuscitate) Current Visit: No Status: Chronic
[2019-01-31] MEDS: ELIQUIS 2.5 MG TABLET PO SCH ×2 (10:09→21:51)
[2019-01-31] MEDS: ROCEPHIN 1 Gm-D5w 50 ml Bag** 1 G/50 ML IVPB IV SCH (10:09)
[2019-01-31] MEDS: Protonix 40MG Tablet PO SCH (10:09)
[2019-01-31] MEDS: Zithromax 500 MG/ 250 ML NaCl Premix 500 MG/250 ML IVPB IV SCH (10:50)
[2019-01-31] MEDS: Tums EX 750 MG PO PRN (12:48)
[2019-01-31] MEDS: xanAX 0.5 MG PO PRN ×2 (12:48→21:51)
[2019-01-31] MEDS: Norco 10/325 MG Tablet PO PRN (21:52)
[2019-01-31] MEDS ORDERED: Zithromax 500 MG/ 250 ML NaCl Premix 500 MG/250 ML IVPB IV SCH (22:00)
[2019-02-01] MEDS: DUONEB 0.5-3 MG/3 ml Neb IH SCH ×6 (03:42→22:50)
[2019-02-01] MEDS: solu-MEDROL 125 MG IV SCH ×2 (03:59→12:32)
[2019-02-01] MEDS: Sodium Chloride 0.9% 10 ML FLUSH Syringe IV SCH (04:50)
[2019-02-01] MEDS: PATIENT OWN MEDICATION PO SCH (06:51)
--- NOTE | 2019-02-01 08:26 | PCM.NOTE ---
Date and Time: 02/01/19824 Subjective Assessment: patient is improving, no new complaints. tolerating po, feels like his breathing is getting better. Objective Exam General Appearance: no apparent distress, thin Neurologic Exam: alert, oriented x 3 Skin Exam: normal color Wound Assessment: Skin/Wound Assessment Wound/Incision Assessment Start: 01/28/19 23: 53 Text: Status: Active Freq: Q6H Protocol: Document 02/01/19 02:00 BW (Rec: 02/01/19 03:08 BW [id number]) Wound/Incision Assessment Upper Coccyx Wound Assessment Shift Assessment Wound Type Pressure Ulcer Drainage Amount None Comment blanchable reddened area to coccyx-barrier cream applied no change Wound Photo Photo Taken No Respiratory Exam: prolonged expirations, rhonchi Cardiovascular Exam: regular rate/rhythm, normal heart sounds Gastrointestinal/Abdomen Exam: soft, No tenderness, No mass Extremity Exam: normal inspection, normal range of motion OBJECTIVE DATA Vital Signs: Vital Signs - 24 hr Temp Pulse Resp BP Pulse Ox 02/01/19 07:41 97.3 F 71 20 139/71 100 02/01/19 06:52 77 18 99 02/01/19 04:00 97.9 F 71 17 131/76 98 02/01/19 03:43 71 17 98 02/01/19 00:00 97.9 F 82 20 117/59 95 01/31/19 23:39 66 18 99 01/31/19 20:03 80 18 97 01/31/19 20:00 98.3 F 79 24 119/63 96 01/31/19 16:00 99.1 F 95 H 17 115/68 94 L 01/31/19 14:35 78 20 95 01/31/19 13:36 82 18 99 01/31/19 12:00 98.7 F 80 18 127/86 99 Oxygen-Last 24 hours O2 Percentage 5 Liters = 40% O2 Percentage 5 Liters = 40% O2 Percentage 5 Liters = 40% O2 Percentage 5 Liters = 40% O2 Percentage 4 Liters = 36% O2 Percentage 5 Liters = 40% Pain Assessment - Last Documented Pain Intensity 2 Pain Scale Used 0-10 Pain Scale,FLACC Intake and Output: Intake & Output 01/29/19 01/30/19 01/31/19 02/01/19 11:59 11:59 11:59 11:59 Intake Total 480 1573 1920 1245 Output Total 300 1750 2150 1570 Balance 180 172 -230 -325 Weight 53 kg 53 kg Assessment/Plan (1) COPD exacerbation Current Visit: Yes Status: Acute Assessment & Plan: on solu medrol and rocephin/zithromax. he is nearing his baseline, discussed plan for discharge likely tomorrow when his granddaughter will be home. he again declines ecf/hospice referral after discussion. Code(s): J44.1 - CHRONIC OBSTRUCTIVE PULMONARY DISEASE W (ACUTE) EXACERBATION (2) Chronic hypoxemic respiratory failure Current Visit: No Status: Chronic (3) DNR (do not resuscitate) Current Visit: No Status: Chronic
[2019-02-01] MEDS: Glucophage 500 MG PO SCH ×2 (08:47→17:09)
[2019-02-01] MEDS: Zithromax 500 MG/ 250 ML NaCl Premix 500 MG/250 ML IVPB IV SCH (08:47)
[2019-02-01] MEDS: ELIQUIS 2.5 MG TABLET PO SCH ×2 (08:47→22:51)
[2019-02-01] MEDS: Protonix 40MG Tablet PO SCH (08:48)
[2019-02-01] MEDS: ROCEPHIN 1 Gm-D5w 50 ml Bag** 1 G/50 ML IVPB IV SCH (10:55)
[2019-02-01] MEDS: xanAX 0.5 MG PO PRN ×2 (17:09→22:54)
[2019-02-01] MEDS: Norco 10/325 MG Tablet PO PRN (22:51)
[2019-02-01] MEDS: DELTASONE 20 MG PO SCH (22:51)
[2019-02-02] MEDS: DUONEB 0.5-3 MG/3 ml Neb IH SCH ×6 (02:57→22:50)
[2019-02-02 06:04] LABS: Hematocrit 32.1 % (42-50); Hemoglobin 10.1 gm/dl (12.5-18.0); Mean Cell Volume 95.5 fl (78-100); Mean Corpuscular Hgb Concent. 31.5 g/dl (32-36); Mean Platelet Volume 8.5 fl (6-9.5); Platelet Count 257 K/mm3 (150-450); Red Blood Count 3.36 M/mm3 (4.1-5.6); Red Cell Distribution Width 13.2 % (11.5-14.0); White Blood Count 13.2 K/mm3 (4.0-10.5)
[2019-02-02 06:37] LABS: ANION GAP 8.6 MEQ/L (5-15); BLOOD UREA NITROGEN 22 mg/dL (9-20); CHLORIDE 100 mmol/L (98-107); Calcium 9.1 mg/dL (8.4-10.2); Carbon Dioxide 34 mmol/L (22-30); Creatinine 1 0.65 mg/dL (0.66-1.25); Glucose 199 mg/dL (74-106); Potassium 4.5 mmol/L (3.5-5.1); SODIUM 138 mmol/L (137-145)
[2019-02-02] MEDS: PATIENT OWN MEDICATION PO SCH (07:25)
[2019-02-02 09:46] LABS: INR 1.08 (0.8-3.0); PROTIME 12.2 SECONDS (8.83-12.87)
[2019-02-02 09:48] LABS: PTT 25.1 SECONDS (24.1-36.1)
[2019-02-02] MEDS: Protonix 40MG Tablet PO SCH (09:48)
[2019-02-02] MEDS: Glucophage 500 MG PO SCH ×2 (09:48→17:05)
[2019-02-02] MEDS: DELTASONE 20 MG PO SCH (09:48)
[2019-02-02] MEDS ORDERED: Zithromax 250 MG TABLET PO SCH (10:00)
[2019-02-02] MEDS: xanAX 0.5 MG PO PRN ×2 (11:41→23:00)
[2019-02-02] MEDS: Zofran 4 MG/2 ML VIAL IV PRN (15:13)
[2019-02-02] MEDS: ROCEPHIN 1 Gm-D5w 50 ml Bag** 1 G/50 ML IVPB IV SCH (15:17)
[2019-02-02] MEDS: Carafate 1 GM PO SCH ×2 (17:02→23:00)
[2019-02-02] MEDS: ELIQUIS 2.5 MG TABLET PO SCH ×2 (17:05→23:01)
--- NOTE | 2019-02-02 20:08 | XRAY ---
Indication: PICC placement. Comparison: January 28, 2019. Portable chest demonstrates new right arm PICC line with the tip approximately axilla level. Remaining chest unchanged with stable COPD, bilateral scattered fibrosis/scarring, right lung postsurgical changes, and bibasilar pleural effusion/thickening. Heart is not enlarged. Comment: Preliminary interpretation was made by [facility]. No discrepancy.
[2019-02-02] MEDS: solu-MEDROL 125 MG IV SCH (23:00)
[2019-02-02] MEDS: Norco 10/325 MG Tablet PO PRN (23:00)
--- NOTE | 2019-02-02 23:27 | PCM.NOTE ---
Date and Time: 02/02/192309 Subjective Assessment: Patient's IV infiltrated and he was changed to oral meds (antibiotic and prednisone) Unable to start IV. Overnight his breathing became more labored.Mid line was secured and Solumedrol was restarted. Patient voices an understanding of his endstage COPD.He had HH and Grandaughters helping him at home. States appetite is pretty good ,no BM yesterday or today. Objective Exam General Appearance: no apparent distress, thin Neurologic Exam: alert, oriented x 3 Skin Exam: other (dusky color) Wound Assessment: Skin/Wound Assessment Wound/Incision Assessment Start: 01/28/19 23: 53 Text: Status: Active Freq: Q6H Protocol: Document 02/02/19 20:00 LB (Rec: 02/02/19 21:06 LB [id number]) Wound/Incision Assessment Upper Coccyx Wound Assessment Shift Assessment Wound Type Pressure Ulcer Drainage Amount None General Appearance Open to air Comment barrier cream applied as needed Wound Photo Photo Taken No Ears, Nose, Throat Exam: normal ENT inspection Respiratory Exam: diminished breath sounds, rhonchi, wheezing, other ( conversational dyspnea mild. O2 N/C) Cardiovascular Exam: regular rate/rhythm Gastrointestinal/Abdomen Exam: distention (nontender) OBJECTIVE DATA Vital Signs: Vital Signs - 24 hr Temp Pulse Resp BP Pulse Ox 02/02/19 22:50 78 20 99 02/02/19 19:55 98.1 F 89 21 150/77 96 02/02/19 19:05 82 20 98 02/02/19 16:00 98.7 F 89 20 154/71 93 L 02/02/19 15:45 91 H 24 99 02/02/19 12:00 97.8 F 84 20 136/72 99 02/02/19 10:56 85 24 98 02/02/19 08:09 81 22 99 02/02/19 07:43 97.4 F 73 20 155/74 96 02/02/19 03:51 97.0 F 79 20 139/74 97 02/02/19 02:57 79 20 97 02/01/19 23:42 97.7 F 79 22 140/72 98 Oxygen-Last 24 hours O2 Percentage 5 Liters = 40% O2 Percentage 5 Liters = 40% O2 Percentage 5 Liters = 40% O2 Percentage 5 Liters = 40% Pain Assessment - Last Documented Pain Intensity 5 Pain Scale Used 0-10 Pain Scale Intake and Output: Intake & Output 01/31/19 02/01/19 02/02/19 02/03/19 11:59 11:59 11:59 11:59 Intake Total 1920 1245 2180 540 Output Total 2150 1570 4859 700 Balance -230 -325 215 -160 Weight 53 kg Lab Results: Lab Results-Last 24 Hours 02/02/19 02/02/19 02/02/19 Range/Units 05:00 05:25 05:25 WBC 13.2 H (4.0-10.5) K/mm3 RBC 3.36 L (4.1-5.6) M/mm3 Hgb 10.1 L (12.5-18.0) gm/dl Hct 32.1 L (42-50) % MCV 95.5 (78-100) fl MCH 30.0 (26-32) pg MCHC 31.5 L (32-36) g/dl RDW 13.2 (11.5-14.0) % Plt Count 257 (150-450) K/mm3 MPV 8.5 (6-9.5) fl PT 12.2 (8.83-12.87) SECONDS INR 1.08 (0.8-3.0) APTT 25.1 (24.1-36.1) SECONDS Sodium 138 (137-145) mmol/L Potassium 4.5 (3.5-5.1) mmol/L Chloride 100 (98-107) mmol/L Carbon Dioxide 34 H (22-30) mmol/L Anion Gap 8.6 (5-15) MEQ/L BUN 22 H (9-20) mg/dL Creatinine 0.65 L (0.66-1.25) mg/dL Estimated GFR > 60.0 ML/MIN Glucose 199 H (74-106) mg/dL Calcium 9.1 (8.4-10.2) mg/dL Radiology Exams: Radiology Procedures Category Date Time Status CHEST 1 VIEW (PORTABLE) Routine Exams 02/02/19 13:39 Completed Multi-Disciplinary Progress Notes: Multi-Disciplinary Progress Notes 02/02/19 09:01 Case Management Note by Trupti Canales DISCHARGE PLAN REVIEWED. AT THIS TIME, NO CHANGE IN CURRENT PLAN TO RETURN HOME WITH GRANDCHILDREN. ALL EQUIPMENT IN PLACE AT HOME AND ALL IN WORKING CONDITION. Initialized on 02/02/19 09:01 - END OF NOTE Assessment/Plan (1) COPD exacerbation Current Visit: Yes Status: Acute Assessment & Plan: setback coming off IV Solumedrol to oral. Code(s): J44.1 - CHRONIC OBSTRUCTIVE PULMONARY DISEASE W (ACUTE) EXACERBATION (2) IV infiltration Current Visit: Yes Status: Acute Qualifiers: Encounter type: initial encounter Qualified Code(s): T80.1XXA - Vascular complications following infusion, transfusion and therapeutic injection, initial encounter Assessment & Plan: Midline acess obtained Code(s): T80.1XXA - VASCULAR COMP FOL INFUSN, TRANFS AND THERAPUTC INJECT, INIT
[2019-02-03] MEDS: DUONEB 0.5-3 MG/3 ml Neb IH SCH ×6 (03:09→23:03)
[2019-02-03] MEDS: solu-MEDROL 125 MG IV SCH ×2 (05:49→16:42)
[2019-02-03] MEDS: PATIENT OWN MEDICATION PO SCH (07:09)
[2019-02-03] MEDS: ROCEPHIN 1 Gm-D5w 50 ml Bag** 1 G/50 ML IVPB IV SCH (09:30)
[2019-02-03] MEDS: ELIQUIS 2.5 MG TABLET PO SCH ×2 (09:37→21:22)
[2019-02-03] MEDS: Protonix 40MG Tablet PO SCH (09:37)
[2019-02-03] MEDS: Carafate 1 GM PO SCH ×3 (09:37→21:22)
[2019-02-03] MEDS: Glucophage 500 MG PO SCH ×2 (09:37→16:43)
[2019-02-03] MEDS: Zithromax 500 MG/ 250 ML NaCl Premix 500 MG/250 ML IVPB IV SCH (09:45)
--- NOTE | 2019-02-03 12:39 | PCM.NOTE ---
Date and Time: 02/03/19 1236 Subjective Assessment: Patient improved with restarting IV Solumedrol. Had BM. Appetite is good . Is weak standing and is ready to try to regain strenghth to get home and restart Home Health PT. States he is tired of NH environment.Is willing to stay for rehab here if allowed. Will have PT start working with patient. I misunderstood his wishes when we spoke yesterday about discharge wishes. 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, normal mood/affect Skin Exam: warm, dry, other (dusky) Wound Assessment: Skin/Wound Assessment Wound/Incision Assessment Start: 01/28/19 23: 53 Text: Status: Active Freq: Q6H Protocol: Document 02/03/19 02:00 LB (Rec: 02/03/19 03:45 LB [id number]) Wound/Incision Assessment Upper Coccyx Wound Assessment Shift Assessment Wound Type Pressure Ulcer Drainage Amount None General Appearance Open to air Comment barrier cream applied as needed Wound Photo Photo Taken No Ears, Nose, Throat Exam: moist mucous membranes Respiratory Exam: wheezing, other (conversational dyspnea mild.) Cardiovascular Exam: regular rate/rhythm Gastrointestinal/Abdomen Exam: other (increased BS,slightly distended ,nontender ) Extremity Exam: other (midline IV acess in place right upper arm) OBJECTIVE DATA Vital Signs: Vital Signs - 24 hr Temp Pulse Resp BP Pulse Ox 02/03/19 12:00 98.0 F 91 H 18 125/67 97 02/03/19 10:55 88 22 98 02/03/19 08:00 98.0 F 80 18 143/77 96 02/03/19 07:10 81 20 98 02/03/19 04:00 98.6 F 76 21 125/70 99 02/03/19 03:09 76 21 99 02/02/19 23:36 97.9 F 78 20 129/64 99 02/02/19 22:50 78 20 99 02/02/19 19:55 98.1 F 89 21 150/77 96 02/02/19 19:05 82 20 98 02/02/19 16:00 98.7 F 89 20 154/71 93 L 02/02/19 15:45 91 H 24 99 Oxygen-Last 24 hours O2 Percentage 4 Liters = 36% O2 Percentage 5 Liters = 40% O2 Percentage 5 Liters = 40% Oxygen Flowrate (L/min)-RT 5 Pain Assessment - Last Documented Pain Intensity 2 Pain Scale Used FLACC Intake and Output: Intake & Output 02/01/19 02/02/19 02/03/19 02/04/19 11:59 11:59 11:59 11:59 Intake Total 1245 2180 1360 Output Total 1570 6881 2575 Balance -325 215 -1215 Radiology Exams: Radiology Procedures Category Date Time Status CHEST 1 VIEW (PORTABLE) Routine Exams 02/02/19 13:39 Completed Multi-Disciplinary Progress Notes: Multi-Disciplinary Progress Notes 02/03/19 07:41 Case Management Note by Trupti Canales MR FONSECA TOLD DR WOOD THAT ON D/C HE MAY BE INTERESTED IN ASSISTED LIVING Initialized on 02/03/19 07:41 - END OF NOTE Assessment/Plan (1) COPD exacerbation Current Visit: Yes Status: Acute Assessment & Plan: improved with restarting IV Solumedrol and antibiotics Code(s): J44.1 - CHRONIC OBSTRUCTIVE PULMONARY DISEASE W (ACUTE) EXACERBATION (2) IV infiltration Current Visit: Yes Status: Acute Qualifiers: Encounter type: initial encounter Qualified Code(s): T80.1XXA - Vascular complications following infusion, transfusion and therapeutic injection, initial encounter Code(s): T80.1XXA - VASCULAR COMP FOL INFUSN, TRANFS AND THERAPUTC INJECT, INIT (3) Weakness Current Visit: Yes Status: Acute Assessment & Plan: due to chronic illness-start PT,swing bed if accepted ptn requests Code(s): R53.1 - WEAKNESS
[2019-02-03] MEDS: Norco 10/325 MG Tablet PO PRN (21:22)
[2019-02-03] MEDS: xanAX 0.5 MG PO PRN (21:22)
[2019-02-04] MEDS: solu-MEDROL 125 MG IV SCH ×4 (00:39→22:54)
[2019-02-04] MEDS: DUONEB 0.5-3 MG/3 ml Neb IH SCH ×6 (03:09→23:10)
[2019-02-04 05:36] LABS: Basophil (Absolute #) 0 (0-0.4); Eosinophil % 0.2 % (0.00-5.0); Eosinophil (Absolute #) 0.02 (0-0.5); Granulocyte Absolute (ANC) 11.93 (1.4-6.9); Granulocytes % 92.9 % (36.0-66.0); Hematocrit 32.8 % (42-50); Hemoglobin 10.3 gm/dl (12.5-18.0); Lymphocyte (Absolute #) 0.56 (1.0-4.6); Lymphocytes % 4.4 % (24.0-44.0); Mean Cell Volume 93.7 fl (78-100); Mean Corpuscular Hemoglobin 29.4 pg (26-32); Mean Corpuscular Hgb Concent. 31.4 g/dl (32-36); Mean Platelet Volume 8.1 fl (6-9.5); Monocyte (Absolute #) 0.32 (0.0-1.3); Monocytes % 2.5 % (0.0-12.0); Platelet Count 248 K/mm3 (150-450); White Blood Count 12.8 K/mm3 (4.0-10.5)
[2019-02-04 05:59] LABS: ALBUMIN 3.1 g/dL (3.5-5.0); ALKALINE PHOSPHATASE 51 U/L (38-126); ANION GAP 11.4 MEQ/L (5-15); BLOOD UREA NITROGEN 31 mg/dL (9-20); CHLORIDE 96 mmol/L (98-107); Calcium 8.9 mg/dL (8.4-10.2); Carbon Dioxide 33 mmol/L (22-30); Creatinine 1 0.52 mg/dL (0.66-1.25); Glucose 293 mg/dL (74-106); Potassium 4.6 mmol/L (3.5-5.1); SGOT/AST 21 U/L (17-59); SGPT/ALT 23 U/L (0-50); SODIUM 136 mmol/L (137-145); Total Protein 5.8 g/dL (6.3-8.2)
[2019-02-04 06:24] LABS: Slide Review 1 YES
[2019-02-04] MEDS: xanAX 0.5 MG PO PRN ×2 (06:32→22:59)
[2019-02-04] MEDS: Glucophage 500 MG PO SCH ×2 (08:13→17:21)
--- NOTE | 2019-02-04 08:36 | PCM.NOTE ---
Date and Time: 02/04/19 0834 Subjective Assessment: patient had a bad weekend, lost IV access and breathing deteriorated, he was feeling short of breath and has more cough. he is concerned about his functional status but absolutely not interested in a rehab stay at [facility] Objective Exam General Appearance: thin Neurologic Exam: alert Skin Exam: normal color, warm, dry Wound Assessment: Skin/Wound Assessment Wound/Incision Assessment Start: 01/28/19 23: 53 Text: Status: Active Freq: Q6H Protocol: Document 02/04/19 02:00 LB (Rec: 02/04/19 03:53 LB [id number]) Wound/Incision Assessment Upper Coccyx Wound Assessment Shift Assessment Wound Type Pressure Ulcer Drainage Amount None General Appearance Open to air Comment barrier cream applied as needed Wound Photo Photo Taken No Respiratory Exam: prolonged expirations, rhonchi Cardiovascular Exam: regular rate/rhythm, normal heart sounds Gastrointestinal/Abdomen Exam: soft, No tenderness, No mass Extremity Exam: normal inspection, normal range of motion OBJECTIVE DATA Vital Signs: Vital Signs - 24 hr Temp Pulse Resp BP Pulse Ox 02/04/19 07:00 97.8 F 77 20 146/75 96 02/04/19 06:45 75 18 96 02/04/19 03:51 97.4 F 79 18 141/73 97 02/04/19 03:16 79 18 97 02/03/19 23:53 97.5 F 76 21 139/72 98 02/03/19 23:10 77 18 98 02/03/19 20:00 98.2 F 76 21 127/73 98 02/03/19 18:57 86 20 94 L 02/03/19 16:00 98.0 F 75 18 137/76 95 02/03/19 14:42 79 18 99 02/03/19 12:00 98.0 F 91 H 18 125/67 97 02/03/19 10:55 88 22 98 Oxygen-Last 24 hours O2 Percentage 5 Liters = 40% O2 Percentage 5 Liters = 40% O2 Percentage 5 Liters = 40% O2 Percentage 5 Liters = 40% O2 Percentage 4 Liters = 36% Pain Assessment - Last Documented Pain Intensity 5 Pain Scale Used FLACC Intake and Output: Intake & Output 02/01/19 02/02/19 02/03/19 02/04/19 11:59 11:59 11:59 11:59 Intake Total 1245 2180 1360 940 Output Total 1216 4159 7927 4830 Balance -325 738 -3866 -8759 Lab Results: Lab Results-Last 24 Hours 02/04/19 02/04/19 Range/Units 05:25 05:25 WBC 12.8 H (4.0-10.5) K/mm3 RBC 3.50 L (4.1-5.6) M/mm3 Hgb 10.3 L (12.5-18.0) gm/dl Hct 32.8 L (42-50) % MCV 93.7 (78-100) fl MCH 29.4 (26-32) pg MCHC 31.4 L (32-36) g/dl RDW 13.0 (11.5-14.0) % Plt Count 248 (150-450) K/mm3 MPV 8.1 (6-9.5) fl Gran % 92.9 H (36.0-66.0) % Eos # (Auto) 0.02 (0-0.5) Absolute Lymphs (auto) 0.56 L (1.0-4.6) Absolute Monos (auto) 0.32 (0.0-1.3) Lymphocytes % 4.4 L (24.0-44.0) % Monocytes % 2.5 (0.0-12.0) % Eosinophils % 0.2 (0.00-5.0) % Basophils % 0.0 (0.0-0.4) % Absolute Granulocytes 11.93 H (1.4-6.9) Basophils # 0 (0-0.4) Sodium 136 L (137-145) mmol/L Potassium 4.6 (3.5-5.1) mmol/L Chloride 96 L (98-107) mmol/L Carbon Dioxide 33 H (22-30) mmol/L Anion Gap 11.4 (5-15) MEQ/L BUN 31 H (9-20) mg/dL Creatinine 0.52 L (0.66-1.25) mg/dL Estimated GFR > 60.0 ML/MIN Glucose 293 H (74-106) mg/dL Calcium 8.9 (8.4-10.2) mg/dL Total Bilirubin 0.30 (0.2-1.3) mg/dL AST 21 (17-59) U/L ALT 23 (0-50) U/L Alkaline Phosphatase 51 (38-126) U/L Serum Total Protein 5.8 L (6.3-8.2) g/dL Albumin 3.1 L (3.5-5.0) g/dL Slides for Path Review YES Radiology Exams: Radiology Procedures Category Date Time Status CHEST 1 VIEW (PORTABLE) Routine Exams 02/02/19 13:39 Completed Assessment/Plan (1) COPD exacerbation Current Visit: Yes Status: Acute Assessment & Plan: continue IV solu medrol, rocephin/zithromax Code(s): J44.1 - CHRONIC OBSTRUCTIVE PULMONARY DISEASE W (ACUTE) EXACERBATION (2) Chronic hypoxemic respiratory failure Current Visit: No Status: Chronic (3) DNR (do not resuscitate) Current Visit: No Status: Chronic (4) Weakness Current Visit: Yes Status: Acute Code(s): R53.1 - WEAKNESS
[2019-02-04] MEDS: ROCEPHIN 1 Gm-D5w 50 ml Bag** 1 G/50 ML IVPB IV SCH (09:15)
[2019-02-04] MEDS: Protonix 40MG Tablet PO SCH (09:16)
[2019-02-04] MEDS: ELIQUIS 2.5 MG TABLET PO SCH ×2 (09:16→22:53)
[2019-02-04] MEDS: Carafate 1 GM PO SCH ×3 (09:16→22:54)
[2019-02-04] MEDS: PATIENT OWN MEDICATION PO SCH (09:52)
[2019-02-04] MEDS: Zithromax 500 MG/ 250 ML NaCl Premix 500 MG/250 ML IVPB IV SCH (09:52)
[2019-02-04] MEDS: Tums EX 750 MG PO PRN (10:20)
[2019-02-04 11:04] LABS: Appearance CLEAR (CLEAR); Bilirubin NEGATIVE (NEGATIVE); Blood NEGATIVE Ery/ul (0-5); Glucose >=500 mg/dL (NEGATIVE); Ketones NEGATIVE (NEGATIVE); Leukocyte Esterase NEGATIVE (NEGATIVE); Nitrite NEGATIVE (NEGATIVE); Protein,Urine Dip NEGATIVE (Negative); Specific Gravity 1.025 (1.005-1.025); Urobilinogen NEGATIVE mg/dL (0-1)
[2019-02-04] MEDS: Norco 10/325 MG Tablet PO PRN (22:59)
[2019-02-05] MEDS: DUONEB 0.5-3 MG/3 ml Neb IH SCH ×6 (03:04→23:10)
[2019-02-05] MEDS: solu-MEDROL 125 MG IV SCH ×3 (05:18→22:20)
[2019-02-05 05:29] LABS: Hematocrit 32.4 % (42-50); Hemoglobin 10.1 gm/dl (12.5-18.0); Mean Corpuscular Hemoglobin 29.6 pg (26-32); Mean Corpuscular Hgb Concent. 31.2 g/dl (32-36); Mean Platelet Volume 8.2 fl (6-9.5); Platelet Count 247 K/mm3 (150-450); Red Blood Count 3.41 M/mm3 (4.1-5.6); Red Cell Distribution Width 12.8 % (11.5-14.0); White Blood Count 14.9 K/mm3 (4.0-10.5)
[2019-02-05 05:41] LABS: ANION GAP 9.5 MEQ/L (5-15); BLOOD UREA NITROGEN 31 mg/dL (9-20); CHLORIDE 96 mmol/L (98-107); Calcium 8.8 mg/dL (8.4-10.2); Carbon Dioxide 34 mmol/L (22-30); Creatinine 1 0.63 mg/dL (0.66-1.25); Glucose 295 mg/dL (74-106); Potassium 4.9 mmol/L (3.5-5.1); SODIUM 135 mmol/L (137-145)
[2019-02-05 06:07] LABS: Lymphocytes 11 % (24-44); Monocyte 4 % (0.0-12.0); Neutrophils 85 % (36.-66.); Total Cells Counted 100
[2019-02-05 06:08] LABS: ANISOCYTOSIS 1+; Platelet Estimate NORMAL (NORMAL); Poikilocytosis 1+
[2019-02-05] MEDS: PATIENT OWN MEDICATION PO SCH (07:16)
--- NOTE | 2019-02-05 09:02 | PCM.NOTE ---
Date and Time: 02/05/19857 Subjective Assessment: Pt did not do well at night starting at 1 a.m.(increased SOB) - feeling better now. - Review of Systems Constitutional: No Fever Respiratory: Cough, Short Of Breath Objective Exam General Appearance: no apparent distress, alert Neurologic Exam: oriented x 3, cooperative Skin Exam: normal color, warm, dry, No rash Wound Assessment: Skin/Wound Assessment Wound/Incision Assessment Start: 01/28/19 23: 53 Text: Status: Active Freq: Q6H Protocol: Document 02/05/19 02:00 AR (Rec: 02/05/19 04:36 AR [id number]) Wound/Incision Assessment Upper Coccyx Wound Assessment Shift Assessment Wound Type Pressure Ulcer Wound Stage Stage II General Appearance Open to air Comment BARRIER CREAM APPLIED prn Wound Photo Photo Taken No Respiratory Exam: diminished breath sounds, wheezing (throughout), No crackles/ rales, No rhonchi Cardiovascular Exam: regular rate/rhythm, normal heart sounds, No murmur Gastrointestinal/Abdomen Exam: soft, normal bowel sounds, tenderness (mild suprapubic), distention, No mass Extremity Exam: normal inspection, No pedal edema, No swelling Back Exam: normal inspection, No rash OBJECTIVE DATA Vital Signs: Vital Signs - 24 hr Temp Pulse Resp BP Pulse Ox 02/05/19 08:00 97.4 F 79 20 119/62 94 L 02/05/19 04:00 98.3 F 83 20 148/76 96 02/05/19 03:40 81 18 98 02/04/19 23:53 98.7 F 79 20 136/72 100 02/04/19 23:31 79 18 94 L 02/04/19 20:00 98.3 F 92 H 22 135/68 98 02/04/19 19:06 87 20 99 02/04/19 16:00 97.8 F 99 H 20 134/70 97 02/04/19 14:27 93 H 18 94 L 02/04/19 11:14 97.8 F 102 H 20 137/73 96 02/04/19 10:36 99 H 20 91 L Oxygen-Last 24 hours O2 Percentage 5 Liters = 40% O2 Percentage 5 Liters = 40% O2 Percentage 5 Liters = 40% O2 Percentage 5 Liters = 40% O2 Percentage 5 Liters = 40% O2 Percentage 5 Liters = 40% Pain Assessment - Last Documented Pain Intensity 5 Pain Scale Used [facility] Intake and Output: Intake & Output 02/02/19 02/03/19 02/04/19 02/05/19 11:59 11:59 11:59 11:59 Intake Total 2180 1360 1060 1680 Output Total 4525 4052 2600 2250 Balance 904 -4402 -7049 -301 Lab Results: Lab Results-Last 24 Hours 02/04/19 02/05/19 02/05/19 Range/Units 10:53 05:20 05:20 WBC 14.9 H (4.0-10.5) K/mm3 RBC 3.41 L (4.1-5.6) M/mm3 Hgb 10.1 L (12.5-18.0) gm/dl Hct 32.4 L (42-50) % MCV 95.0 (78-100) fl MCH 29.6 (26-32) pg MCHC 31.2 L (32-36) g/dl RDW 12.8 (11.5-14.0) % Plt Count 247 (150-450) K/mm3 MPV 8.2 (6-9.5) fl Segmented Neutrophils 85 H (36.-66.) % Lymphocytes (Manual) 11 L (24-44) % Monocytes (Manual) 4 (0.0-12.0) % Platelet Estimate NORMAL (NORMAL) RBC Morphology ABNORMAL Poikilocytosis 1+ Anisocytosis 1+ Sodium 135 L (137-145) mmol/L Potassium 4.9 (3.5-5.1) mmol/L Chloride 96 L (98-107) mmol/L Carbon Dioxide 34 H (22-30) mmol/L Anion Gap 9.5 (5-15) MEQ/L BUN 31 H (9-20) mg/dL Creatinine 0.63 L (0.66-1.25) mg/dL Estimated GFR > 60.0 ML/MIN Glucose 295 H (74-106) mg/dL Calcium 8.8 (8.4-10.2) mg/dL Urine Color YELLOW (YELLOW) Urine Appearance CLEAR (CLEAR) Urine pH 6.0 (5-6) Ur Specific Buena 1.025 (1.005-1.025) Urine Protein NEGATIVE (Negative) Urine Ketones NEGATIVE (NEGATIVE) Urine Blood NEGATIVE (0-5) Yash/ul Urine Nitrite NEGATIVE (NEGATIVE) Urine Bilirubin NEGATIVE (NEGATIVE) Urine Urobilinogen NEGATIVE (0-1) mg/dL Ur Leukocyte Esterase NEGATIVE (NEGATIVE) Urine WBC (Auto) NONE (0-5) /HPF Urine RBC (Auto) NONE (0-2) /HPF U Epithel Cells (Auto) NONE (FEW) /HPF Urine Bacteria (Auto) NONE (NEGATIVE) /HPF Urine Culture Reflexed NO (NO) Urine Glucose >=500 (NEGATIVE) mg/dL Multi-Disciplinary Progress Notes: Multi-Disciplinary Progress Notes 02/04/19 15:29 Nutrition Note by Cheryl Huitron F/u Note: Cardiac diet con't with 50-100% po intake. No recent weight available. Labs = Na 136, BUN 31, Cr 0.52, glu 293, alb 3.1, hgb 10.3, hct 32.8. goals not met and ongoing. Con't to recommend adding NCS to diet order. Will con't to monitor and f/u prn. T.RADHA Huitron Initialized on 02/04/19 15:29 - END OF NOTE Assessment/Plan (1) COPD exacerbation Current Visit: Yes Status: Acute Assessment & Plan: With increased wheezing. He is on rocephin and zithromax. Will increase the steroid slightly form 60mg IV q8h to 80mg IV q8. Code(s): J44.1 - CHRONIC OBSTRUCTIVE PULMONARY DISEASE W (ACUTE) EXACERBATION (2) Failure of outpatient treatment Current Visit: Yes Status: Acute Code(s): Z78.9 - OTHER SPECIFIED HEALTH STATUS (3) Muscular deconditioning Current Visit: No Status: Acute Assessment & Plan: Amenable to swing bed for rehab. 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 Code(s): E11.9 - TYPE 2 DIABETES MELLITUS WITHOUT COMPLICATIONS (7) Hypertension Current Visit: No Status: Chronic Qualifiers: Hypertension type: essential hypertension Qualified Code(s): I10 - Essential (primary) hypertension Code(s): I10 - ESSENTIAL (PRIMARY) HYPERTENSION (8) DNR (do not resuscitate) Current Visit: No Status: Chronic
[2019-02-05] MEDS: Glucophage 500 MG PO SCH ×2 (11:03→17:16)
[2019-02-05] MEDS: Carafate 1 GM PO SCH ×3 (11:09→22:16)
[2019-02-05] MEDS: ELIQUIS 2.5 MG TABLET PO SCH ×2 (11:17→22:16)
[2019-02-05] MEDS: ROCEPHIN 1 Gm-D5w 50 ml Bag** 1 G/50 ML IVPB IV SCH (11:18)
[2019-02-05] MEDS: Protonix 40MG Tablet PO SCH (11:18)
[2019-02-05] MEDS: Zithromax 500 MG/ 250 ML NaCl Premix 500 MG/250 ML IVPB IV SCH (11:18)
[2019-02-05] MEDS: Zofran 4 MG/2 ML VIAL IV PRN (12:27)
[2019-02-05] MEDS: Norco 10/325 MG Tablet PO PRN (22:15)
[2019-02-05] MEDS: xanAX 0.5 MG PO PRN (22:16)
[2019-02-05] MEDS: NovoLOG Insulin SQ PRN (22:53)
[2019-02-06] MEDS: DUONEB 0.5-3 MG/3 ml Neb IH SCH ×6 (03:14→22:16)
[2019-02-06] MEDS: solu-MEDROL 125 MG IV SCH ×3 (06:00→22:36)
[2019-02-06] MEDS: PATIENT OWN MEDICATION PO SCH (06:36)
[2019-02-06] MEDS: Glucophage 500 MG PO SCH ×2 (08:51→18:07)
[2019-02-06] MEDS: NovoLOG Insulin SQ PRN ×3 (08:51→22:40)
--- NOTE | 2019-02-06 09:17 | PCM.NOTE ---
Date and Time: 02/06/19913 Subjective Assessment: patient still c/o shortness of breath, weak and not sleeping well. still having significant cough, not able to produce much sputum. Objective Exam General Appearance: no apparent distress, alert, cachetic Neurologic Exam: alert, oriented x 3 Skin Exam: normal color, warm, dry Respiratory Exam: prolonged expirations, rhonchi Cardiovascular Exam: regular rate/rhythm, normal heart sounds Gastrointestinal/Abdomen Exam: soft, No tenderness, No mass Extremity Exam: normal inspection, normal range of motion OBJECTIVE DATA Vital Signs: Vital Signs - 24 hr Temp Pulse Resp BP Pulse Ox 02/06/19 07:50 97.0 F 82 22 147/70 96 02/06/19 06:39 82 18 95 02/06/19 04:14 83 18 98 02/06/19 04:00 97.7 F 76 21 185/83 100 02/05/19 23:34 97.7 F 74 20 149/75 98 02/05/19 23:17 72 18 99 02/05/19 19:59 98.2 F 77 18 148/78 99 02/05/19 18:49 77 18 99 02/05/19 16:00 97.2 F 76 20 157/77 02/05/19 12:00 97.2 F 84 20 159/78 98 02/05/19 11:19 72 20 Oxygen-Last 24 hours O2 Percentage 5 Liters = 40% O2 Percentage 5 Liters = 40% Pain Assessment - Last Documented Pain Intensity 5 Pain Scale Used 0-10 Pain Scale,FLACC Intake and Output: Intake & Output 02/03/19 02/04/19 02/05/19 02/06/19 11:59 11:59 11:59 11:59 Intake Total 1360 1060 1680 1900 Output Total 2575 2600 2250 1900 Balance -1215 -1540 -570 0 Lab Results: Accuchecks Date 02/05/19 Date 02/05/19 Date 02/05/19 Time 22:50 Time 16:30 Time 11:30 Accucheck Value: 286 Multi-Disciplinary Progress Notes: Multi-Disciplinary Progress Notes 02/05/19 15:38 Physical Therapy Note by Lauren Meneses ATTEMPTED TO SEE PATIENT IN THE A.M. BUT WAS RECEIVING RESPIRATORY THERAPY TREATMENT AND REPORTED DID NOT HAVE A GOOD NIGHT DUE TO PAIN IN STOMACH (POINTS TO EPIGASTRIC AREA). IN P.M. PATIENT SITTING IN CHAIR AND REPORTING FEELING BETTER BUT DID NOT WANT TO ATTEMPT THERAPY OR WALKING. PATIENT DID PERFORM 7 REPS ANKLE PUMPS, QUAD SETS AND GLUT SETS BUT DECLINED TO WALK AT THIS TIME. STATES HE WILL WALK WITH THERAPY TOMORROW. Initialized on 02/05/19 15:38 - END OF NOTE Assessment/Plan (1) COPD exacerbation Current Visit: Yes Status: Acute Assessment & Plan: continue rocephin/zithromax, IV solu medrol was increased yesterday Code(s): J44.1 - CHRONIC OBSTRUCTIVE PULMONARY DISEASE W (ACUTE) EXACERBATION (2) Chronic hypoxemic respiratory failure Current Visit: No Status: Chronic (3) DNR (do not resuscitate) Current Visit: No Status: Chronic (4) Weakness Current Visit: Yes Status: Acute Code(s): R53.1 - WEAKNESS (5) Insomnia Current Visit: Yes Status: Acute Assessment & Plan: add ambien 5mg po qhs prn Code(s): G47.00 - INSOMNIA, UNSPECIFIED
[2019-02-06] MEDS: Protonix 40MG Tablet PO SCH (11:03)
[2019-02-06] MEDS: ELIQUIS 2.5 MG TABLET PO SCH ×2 (11:03→22:36)
[2019-02-06] MEDS: Zofran 4 MG/2 ML VIAL IV PRN (11:03)
[2019-02-06] MEDS: Zithromax 500 MG/ 250 ML NaCl Premix 500 MG/250 ML IVPB IV SCH (11:04)
[2019-02-06] MEDS: ROCEPHIN 1 Gm-D5w 50 ml Bag** 1 G/50 ML IVPB IV SCH (11:05)
[2019-02-06] MEDS: Carafate 1 GM PO SCH ×3 (11:12→22:37)
[2019-02-06] MEDS: xanAX 0.5 MG PO PRN ×3 (12:21→22:36)
[2019-02-06] MEDS: Norco 10/325 MG Tablet PO PRN (22:36)
[2019-02-06] MEDS: Ambien 5 MG Tablet PO PRN (23:22)
[2019-02-07] MEDS: DUONEB 0.5-3 MG/3 ml Neb IH SCH ×6 (03:00→23:06)
[2019-02-07] MEDS: solu-MEDROL 125 MG IV SCH ×3 (05:41→21:13)
[2019-02-07] MEDS: PATIENT OWN MEDICATION PO SCH (06:45)
[2019-02-07] MEDS: NovoLOG Insulin SQ PRN ×2 (07:51→21:16)
[2019-02-07] MEDS: Glucophage 500 MG PO SCH ×2 (07:51→17:26)
--- NOTE | 2019-02-07 08:11 | PCM.NOTE ---
Date and Time: 02/07/19808 Subjective Assessment: patient is stable, sats dropped with ambulation yesterday according to patient. he was able to walk some in the hallway Objective Exam General Appearance: no apparent distress, thin Neurologic Exam: alert, oriented x 3 Skin Exam: normal color, warm, dry Respiratory Exam: prolonged expirations, rhonchi, No respiratory distress Cardiovascular Exam: regular rate/rhythm, normal heart sounds Gastrointestinal/Abdomen Exam: soft, No tenderness, No mass Extremity Exam: normal inspection, normal range of motion OBJECTIVE DATA Vital Signs: Vital Signs - 24 hr Temp Pulse Resp BP Pulse Ox 02/07/19 07:19 97.9 F 74 22 156/71 99 02/07/19 06:48 72 18 97 02/07/19 04:00 97.4 F 67 18 152/72 97 02/07/19 03:00 67 18 98 02/07/19 00:00 97.4 F 82 20 148/86 94 L 02/06/19 22:16 18 02/06/19 19:43 98.2 F 95 H 21 118/71 96 02/06/19 17:15 83 20 98 02/06/19 16:00 97.7 F 97 H 20 125/76 94 L 02/06/19 13:51 108 H 20 97 02/06/19 12:00 97.7 F 89 20 148/76 97 02/06/19 10:38 80 20 99 Oxygen-Last 24 hours O2 Percentage 5 Liters = 40% O2 Percentage 5 Liters = 40% O2 Percentage 5 Liters = 40% O2 Percentage 5 Liters = 40% Pain Assessment - Last Documented Pain Intensity 5 Pain Scale Used 0-10 Pain Scale Intake and Output: Intake & Output 02/04/19 02/05/19 02/06/19 02/07/19 11:59 11:59 11:59 11:59 Intake Total 1060 1680 1900 1510 Output Total 2600 2250 1900 1250 Balance -1540 -570 0 260 Lab Results: Accuchecks Date 02/07/19 Date 02/06/19 Date 02/06/19 Date 02/06/19 Time 07:55 Time 20:30 Time 16:30 Time 11:30 Accucheck Value: 278 Accucheck Value: 271 Accucheck Value: 258 Accucheck Value: 376 Multi-Disciplinary Progress Notes: Multi-Disciplinary Progress Notes 02/06/19 16:48 Physical Therapy Note by Karlie Oneill PT. REQUESTED TO AMBULATE W/ ASSIST OF W/C REVERSED OPPOSED TO USING A ROLLER WALKER THAT HE IS HOW HE WALKS AT HOME AND REPORTS IT IS SAFER FOR HIM. PT. REQUESTED TO HAVE A XANAX PRIOR TO WALKING TO DECREASE ANXIETY. PT. PERFORMED SUPINE TO SIT MOD I AND SIT TO STAND W/ SBA. PT. AMBULATED ~80' W/ W/ C AND CGA; O2 SATS DECREASED TO 85% ON 5L O2; THEREFORE O2 INCREASED TO 6L. PT. RECOVERED FAIRLY WELL AFTER RESTING AND WAS ABLE TO GET BACK ON 5L AFTER RESTING. PT. IS NOT A REHAB CANDIDATE AT THIS TIME D/T HIS END-STAGE COPD. WILL ASSIST NSG W/ AMBULATION PRN. KARLIE ONEILL PT Initialized on 02/06/19 16:48 - END OF NOTE 02/06/19 09:45 (created 02/06/19 13:21) Case Management Note by Justa Moore STILL ADAMANT ABOUT NOT HAVING ANY SUPPORT SERVICES ON DISCHARGE. ENCOURAGED HIM TO RECONSIDER. DENIES NEEDS. REPORTS THAT HE WILL GO HOME. HAS HOME OXYGEN AND ALL NECESSARY DME IN THE HOME. Initialized on 02/06/19 13:21 - END OF NOTE Assessment/Plan (1) COPD exacerbation Current Visit: Yes Status: Acute Assessment & Plan: continue rocephin/zithromax and IV solu medrol Code(s): J44.1 - CHRONIC OBSTRUCTIVE PULMONARY DISEASE W (ACUTE) EXACERBATION (2) Chronic hypoxemic respiratory failure Current Visit: No Status: Chronic (3) DNR (do not resuscitate) Current Visit: No Status: Chronic (4) Weakness Current Visit: Yes Status: Acute Assessment & Plan: continue PT, likely discharge to home tomorrow. had a long discussion regarding ECF vs hospice/home health. he is insistent to return home in spite of our concerns regarding his ability to care for himself. he is competent and able to understand the risk and make his own decision at this time. Code(s): R53.1 - WEAKNESS (5) Insomnia Current Visit: Yes Status: Acute Code(s): G47.00 - INSOMNIA, UNSPECIFIED
[2019-02-07] MEDS: Zithromax 500 MG/ 250 ML NaCl Premix 500 MG/250 ML IVPB IV SCH (09:42)
[2019-02-07] MEDS: Protonix 40MG Tablet PO SCH (09:43)
[2019-02-07] MEDS: ELIQUIS 2.5 MG TABLET PO SCH ×2 (09:43→21:13)
[2019-02-07] MEDS: Carafate 1 GM PO SCH ×2 (09:43→14:23)
[2019-02-07] MEDS: ROCEPHIN 1 Gm-D5w 50 ml Bag** 1 G/50 ML IVPB IV SCH (09:43)
[2019-02-07] MEDS: xanAX 0.5 MG PO PRN ×2 (12:26→21:13)
[2019-02-07] MEDS: Ambien 5 MG Tablet PO PRN (21:13)
[2019-02-08] MEDS: DUONEB 0.5-3 MG/3 ml Neb IH SCH ×6 (03:02→23:17)
[2019-02-08] MEDS: solu-MEDROL 125 MG IV SCH (05:47)
[2019-02-08] MEDS: PATIENT OWN MEDICATION PO SCH (06:42)
[2019-02-08] MEDS: Glucophage 500 MG PO SCH ×2 (07:55→17:14)
[2019-02-08] MEDS: NovoLOG Insulin SQ PRN ×3 (07:56→17:15)
--- NOTE | 2019-02-08 08:42 | PCM.NOTE ---
Date and Time: 02/08/19 0839 Subjective Assessment: patient still very weak and frail, no new complaints. he has significant desaturation with exertion which is chronic Objective Exam General Appearance: no apparent distress Skin Exam: normal color, warm, dry Respiratory Exam: diminished breath sounds, prolonged expirations Cardiovascular Exam: regular rate/rhythm, normal heart sounds Gastrointestinal/Abdomen Exam: soft, No tenderness, No mass Extremity Exam: normal inspection, normal range of motion OBJECTIVE DATA Vital Signs: Vital Signs - 24 hr Temp Pulse Resp BP Pulse Ox 02/08/19 08:00 98.3 F 86 20 149/74 94 L 02/08/19 06:42 77 20 98 02/08/19 04:00 97.8 F 80 19 134/69 98 02/08/19 03:02 80 19 98 02/07/19 23:46 97.1 F 79 20 161/83 97 02/07/19 23:06 77 20 98 02/07/19 20:00 97.9 F 83 21 136/72 99 02/07/19 18:45 85 19 98 02/07/19 16:00 98.8 F 81 22 122/72 100 02/07/19 14:31 85 18 93 L 02/07/19 11:59 98.3 F 94 H 20 125/69 100 02/07/19 10:47 96 H 20 92 L Oxygen-Last 24 hours O2 Percentage 5 Liters = 40% O2 Percentage 5 Liters = 40% O2 Percentage 5 Liters = 40% O2 Percentage 5 Liters = 40% O2 Percentage 5 Liters = 40% O2 Percentage 5 Liters = 40% Pain Assessment - Last Documented Pain Intensity 5 Pain Scale Used 0-10 Pain Scale Intake and Output: Intake & Output 02/05/19 02/06/19 02/07/19 02/08/19 11:59 11:59 11:59 11:59 Intake Total 1680 1900 2150 2750 Output Total 2250 1900 1550 1840 Balance -570 0 600 910 Lab Results: Accuchecks Date 02/08/19 Date 02/07/19 Date 02/07/19 Date 02/07/19 Time 07:46 Time 22:00 Time 17:48 Time 12:13 Accucheck Value: 279 Accucheck Value: 336 Accucheck Value: 207 Accucheck Value: 299 Assessment/Plan (1) COPD exacerbation Current Visit: Yes Status: Acute Assessment & Plan: stable, has improved clinically during hospital stay but patient is very weak and frail. had a long discussion about his living situation today and he is in agreement to discharge to [place] at this time. will consult with host coordinator. will decrease solu medrol at this time, has received 10 days of rocephin/zithromax so will d/c today. Code(s): J44.1 - CHRONIC OBSTRUCTIVE PULMONARY DISEASE W (ACUTE) EXACERBATION (2) Chronic hypoxemic respiratory failure Current Visit: No Status: Chronic (3) DNR (do not resuscitate) Current Visit: No Status: Chronic (4) Weakness Current Visit: Yes Status: Acute Code(s): R53.1 - WEAKNESS (5) Insomnia Current Visit: Yes Status: Acute Code(s): G47.00 - INSOMNIA, UNSPECIFIED
[2019-02-08] MEDS: ELIQUIS 2.5 MG TABLET PO SCH ×2 (09:17→21:06)
[2019-02-08] MEDS: Protonix 40MG Tablet PO SCH (09:17)
[2019-02-08] MEDS: xanAX 0.5 MG PO PRN ×2 (11:01→21:12)
[2019-02-08] MEDS: solu-MEDROL 40 MG IV SCH ×2 (13:44→21:13)
[2019-02-08] MEDS: Norco 10/325 MG Tablet PO PRN (14:38)
[2019-02-08] MEDS: Ambien 5 MG Tablet PO PRN (21:12)
[2019-02-09] MEDS: DUONEB 0.5-3 MG/3 ml Neb IH SCH ×6 (03:19→21:21)
[2019-02-09 04:47] LABS: Hematocrit 33.3 % (42-50); Hemoglobin 10.4 gm/dl (12.5-18.0); Mean Cell Volume 95.4 fl (78-100); Mean Corpuscular Hgb Concent. 31.2 g/dl (32-36); Mean Platelet Volume 8.3 fl (6-9.5); Platelet Count 210 K/mm3 (150-450); Red Blood Count 3.49 M/mm3 (4.1-5.6); Red Cell Distribution Width 13.2 % (11.5-14.0)
[2019-02-09 04:53] LABS: Mean Corpuscular Hemoglobin 29.7 pg (26-32)
[2019-02-09 05:01] LABS: ALKALINE PHOSPHATASE 54 U/L (38-126); ANION GAP 8.7 MEQ/L (5-15); BLOOD UREA NITROGEN 27 mg/dL (9-20); CHLORIDE 98 mmol/L (98-107); Calcium 8.7 mg/dL (8.4-10.2); Carbon Dioxide 35 mmol/L (22-30); Creatinine 1 0.62 mg/dL (0.66-1.25); Glucose 261 mg/dL (74-106); Potassium 5.1 mmol/L (3.5-5.1); SGOT/AST 20 U/L (17-59); SGPT/ALT 45 U/L (0-50); SODIUM 136 mmol/L (137-145); Total Protein 5.3 g/dL (6.3-8.2)
[2019-02-09] MEDS: solu-MEDROL 40 MG IV SCH ×3 (05:30→21:55)
[2019-02-09 05:38] LABS: ANISOCYTOSIS 1+; Lymphocytes 9 % (24-44); Monocyte 1 % (0.0-12.0); Neutrophils 90 % (36.-66.); Platelet Estimate NORMAL (NORMAL); Poikilocytosis 1+; Total Cells Counted 100
[2019-02-09] MEDS: PATIENT OWN MEDICATION PO SCH (06:40)
[2019-02-09] MEDS: NovoLOG Insulin SQ PRN ×4 (08:28→21:54)
[2019-02-09] MEDS: Glucophage 500 MG PO SCH ×2 (08:28→17:19)
[2019-02-09] MEDS: Protonix 40MG Tablet PO SCH (09:39)
[2019-02-09] MEDS: ELIQUIS 2.5 MG TABLET PO SCH ×2 (09:39→21:54)
[2019-02-09] MEDS: xanAX 0.5 MG PO PRN ×2 (10:07→22:07)
--- NOTE | 2019-02-09 10:57 | PCM.NOTE ---
Date and Time: 02/09/19 1051 Subjective Assessment: Patient reports he continues to be very short of breath. He reports he is up in the air whether or not he will go to [place] for further care. He states he has been there 3 times before. He reports he wants to try to get up to a chair today. He had something lying in his bed that looked like an e- cigarette. I asked him what it was and he said a battery and I asked what it was for and he said his nebulizer. He placed it up on his tray,a nd I then said it looks like an e-cigarette and he agreed that that is what it was. I discussed that using this is not safe and not good for his lungs and he said " No don't start that". I've used this for years. I discussed with the Systems Support Officer the Hospital's policy about e-cigarettes and they found the policy regarding this that e-cigs are not to be used. Raman, Systems Support Officer, said he would let the patient know. Objective Exam General Appearance: no apparent distress, alert Neurologic Exam: cooperative, other (easily agitated) Skin Exam: normal color, warm, dry Respiratory Exam: other (distant breath sounds throughout, no crackles, no wheezes) Cardiovascular Exam: regular rate/rhythm, No murmur, No gallop Gastrointestinal/Abdomen Exam: soft, normal bowel sounds, No tenderness, No distention, No mass Extremity Exam: other (no c/c/e) OBJECTIVE DATA Vital Signs: Vital Signs - 24 hr Temp Pulse Resp BP Pulse Ox 02/09/19 10:26 102 H 26 H 96 02/09/19 07:16 97.6 F 85 22 157/75 95 02/09/19 06:42 85 22 98 02/09/19 04:00 98.2 F 81 18 120/65 99 02/09/19 03:22 82 18 99 02/09/19 00:00 97.8 F 86 18 181/79 99 02/08/19 23:17 86 18 99 02/08/19 20:00 97.8 F 86 14 141/79 97 02/08/19 19:27 90 22 99 02/08/19 16:00 98.0 F 69 22 149/73 95 02/08/19 14:29 94 H 24 98 02/08/19 12:00 98.4 F 94 H 20 134/73 100 Oxygen-Last 24 hours O2 Percentage 5 Liters = 40% O2 Percentage 5 Liters = 40% Oxygen Flowrate (L/min)-RT 5 Oxygen Flowrate (L/min)-RT 5 Pain Assessment - Last Documented Pain Intensity 0 Pain Scale Used 0-10 Pain Scale Intake and Output: Intake & Output 02/07/19 02/08/19 02/09/19 02/10/19 06:59 06:59 06:59 06:59 Intake Total 1510 3390 1560 Output Total 1250 2140 2164 Balance 260 1250 -604 Lab Results: Accuchecks Date 02/08/19 Date 02/08/19 Time 22:00 Time 11:30 Accucheck Value: 219 Accucheck Value: 114 Accucheck Value: 223 Accucheck Value: 296 Lab Results-Last 24 Hours 02/09/19 02/09/19 Range/Units 04:47 04:47 WBC 15.0 H (4.0-10.5) K/mm3 RBC 3.49 L (4.1-5.6) M/mm3 Hgb 10.4 L (12.5-18.0) gm/dl Hct 33.3 L (42-50) % MCV 95.4 (78-100) fl MCH 29.7 (26-32) pg MCHC 31.2 L (32-36) g/dl RDW 13.2 (11.5-14.0) % Plt Count 210 (150-450) K/mm3 MPV 8.3 (6-9.5) fl Segmented Neutrophils 90 H (36.-66.) % Lymphocytes (Manual) 9 L (24-44) % Monocytes (Manual) 1 (0.0-12.0) % Platelet Estimate NORMAL (NORMAL) RBC Morphology ABNORMAL Poikilocytosis 1+ Anisocytosis 1+ Sodium 136 L (137-145) mmol/L Potassium 5.1 (3.5-5.1) mmol/L Chloride 98 (98-107) mmol/L Carbon Dioxide 35 H (22-30) mmol/L Anion Gap 8.7 (5-15) MEQ/L BUN 27 H (9-20) mg/dL Creatinine 0.62 L (0.66-1.25) mg/dL Estimated GFR > 60.0 ML/MIN Glucose 261 H (74-106) mg/dL Calcium 8.7 (8.4-10.2) mg/dL Total Bilirubin 0.50 (0.2-1.3) mg/dL AST 20 (17-59) U/L ALT 45 (0-50) U/L Alkaline Phosphatase 54 (38-126) U/L Serum Total Protein 5.3 L (6.3-8.2) g/dL Albumin 3.0 L (3.5-5.0) g/dL Multi-Disciplinary Progress Notes: Multi-Disciplinary Progress Notes 02/08/19 16:02 Physical Therapy Note by Inez Hale 02/08/19: THERAPY ATTEMPTED INPT TREATMENT THIS AFTERNOON, HOWEVER PT REFUSED TO EXERCISE OR AMBULATE WITH PHYSICAL THERAPIST BLENDING TANK TENDER HELPER(DE ALCOHOLIZER) STATING HE DIDN' T THINK HE COULD EVEN STAND, LET ALONE WALK. PT STATES HE TOOK PAIN MEDS PRIOR TO DE ALCOHOLIZER COMING TO HIS ROOM AND HE WAS TOO TIRED AND WEAK TO DO ANYTHING. Initialized on 02/08/19 16:02 - END OF NOTE Assessment/Plan (1) End stage COPD Current Visit: No Status: Chronic Assessment & Plan: Prognosis is guarded and poor as he continues to use e-cigarettes. His nurse stated he has been using this through his entire hospitalization and has used it during other hospitalizations as well. Continue current breathing medications and IV steroids. If he is not compliant with not smoking the e- cigarette this makes his prognosis even poorer. Dr. Vaughan communicated that yesterday he had finished 10 days of ceftriaxone and azithromycin so he is off antibiotics at this time. Code(s): J44.9 - CHRONIC OBSTRUCTIVE PULMONARY DISEASE, UNSPECIFIED (2) Weakness Current Visit: Yes Status: Acute Assessment & Plan: Therapist has noted that he has not been cooperative with therapy and not a candidate for rehab. Code(s): R53.1 - WEAKNESS (3) Chronic hypoxemic respiratory failure Current Visit: No Status: Chronic Assessment & Plan: Continue supportive treatment. His prognosis is guarded. (4) Diabetes mellitus Current Visit: No Status: Chronic Qualifiers: Diabetes mellitus type: type 2 Diabetes mellitus longterm insulin use: without termite exterminator use Diabetes mellitus complication status: with hyperglycemia Qualified Code(s): E11.65 - Type 2 diabetes mellitus with hyperglycemia Assessment & Plan: Will see if Hgb A1C has been checked in past 3 months. Continue metformin and sliding scale of Novolog. Code(s): E11.9 - TYPE 2 DIABETES MELLITUS WITHOUT COMPLICATIONS (5) Nicotine dependence Current Visit: Yes Status: Acute Code(s): F17.200 - NICOTINE DEPENDENCE, UNSPECIFIED, UNCOMPLICATED
[2019-02-09] MEDS: Norco 10/325 MG Tablet PO PRN (13:54)
[2019-02-09] MEDS: Ambien 5 MG Tablet PO PRN (22:07)
[2019-02-10] MEDS: DUONEB 0.5-3 MG/3 ml Neb IH SCH ×7 (00:29→23:50)
[2019-02-10] MEDS: solu-MEDROL 40 MG IV SCH ×3 (05:46→22:09)
[2019-02-10] MEDS: PATIENT OWN MEDICATION PO SCH (07:00)
[2019-02-10] MEDS ORDERED: DUONEB 0.5-3 MG/3 ml Neb IH PRN (07:39)
[2019-02-10] MEDS: Glucophage 500 MG PO SCH ×2 (08:53→17:04)
[2019-02-10] MEDS: NovoLOG Insulin SQ PRN ×2 (08:53→17:05)
[2019-02-10] MEDS ORDERED: Zestril 5 MG PO STA (10:43)
[2019-02-10] MEDS ORDERED: Lantus Insulin SQ ONE (11:00)
--- NOTE | 2019-02-10 11:10 | PCM.NOTE ---
Date and Time: 02/10/19 1105 Subjective Assessment: Patient reports that he continues to feel about the same. The assisted living housekeeper talked to him yesterday that using his e cigarette was not allowed in the hospital. He reports family is coming to see him today and he may have to go to [place] for rehab. He is agreeable to starting a small dose of lantus to help control his blood glucoses while he is on the IV steroids. - Review of Systems Constitutional: Fatigue, Weakness Eyes: No Symptoms Ears, Nose, & Throat: No Symptoms Respiratory: Short Of Breath Cardiac: No Symptoms Abdominal/Gastrointestinal: No Symptoms Genitourinary Symptoms: No Symptoms Skin: No Symptoms Objective Exam General Appearance: no apparent distress, other (on oxygen by nasal cannula) Neurologic Exam: alert, cooperative Skin Exam: normal color, warm, dry Respiratory Exam: other (distant breath sounds, no crackles, no wheezing, equal breath sounds) Cardiovascular Exam: regular rate/rhythm, No murmur, No friction rub, No gallop OBJECTIVE DATA Vital Signs: Vital Signs - 24 hr Temp Pulse Resp BP BP Pulse Ox 02/10/19 10:30 95 H 20 98 02/10/19 07:28 98 F 78 22 166/83 95 02/10/19 03:55 98.4 F 83 22 147/88 97 02/10/19 03:31 83 22 97 02/10/19 00:31 68 20 97 02/09/19 23:34 98.2 F 60 20 146/91 97 02/09/19 21:25 90 20 98 02/09/19 19:59 98.4 F 88 22 158/92 158/92 96 02/09/19 17:54 105 H 26 H 94 L 02/09/19 16:24 97.8 F 94 H 20 150/87 97 02/09/19 14:16 104 H 24 94 L 02/09/19 12:17 97.6 F 86 20 138/77 96 Oxygen-Last 24 hours O2 Percentage 5 Liters = 40% O2 Percentage 5 Liters = 40% O2 Percentage 5 Liters = 40% O2 Percentage 5 Liters = 40% O2 Percentage 5 Liters = 40% O2 Percentage 5 Liters = 40% Pain Assessment - Last Documented Pain Intensity 0 Pain Scale Used 0-10 Pain Scale Intake and Output: Intake & Output 0802/09/19 02/10/19 02/11/19 06:59 06:59 06:59 06:59 Intake Total 3390 1560 2200 Output Total 2140 2164 2150 Balance 1250 -604 50 Lab Results: Accuchecks Date 02/10/19 Time 07:30 Accucheck Value: 211 Accucheck Value: 284 Accucheck Value: 304 Accucheck Value: 291 Multi-Disciplinary Progress Notes: Multi-Disciplinary Progress Notes 02/09/19 12:49 Nutrition Note by Mely Mora F/u Note: Cardiac diet con't with 75-100% PO intake. Labs 02/09: Na 136, BUN 27, Creat 0.62 , alb 3, hgb 10.4, hct 33.3, glu 261. No new wt. Con't to recommend NCS diet. One goal met, 2 remain. Will monitor and f/u prn. EDMUNDO Ley Initialized on 02/09/19 12:49 - END OF NOTE Assessment/Plan (1) End stage COPD Current Visit: No Status: Chronic Assessment & Plan: Prognosis is guarded and poor. Continue with current treatment. He already finished 14 days of antibiotics earlier in this hospital stay. Continue with IV steroids. Code(s): J44.9 - CHRONIC OBSTRUCTIVE PULMONARY DISEASE, UNSPECIFIED (2) Weakness Current Visit: Yes Status: Acute Assessment & Plan: Continue PT as tolerated. Code(s): R53.1 - WEAKNESS (3) Chronic hypoxemic respiratory failure Current Visit: No Status: Chronic Assessment & Plan: Continue oxygen and supportive treatment. 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 Most likely due to steroids. Will start lantus 10 units daily and continue sliding scale coverage also as needed. Code(s): E11.9 - TYPE 2 DIABETES MELLITUS WITHOUT COMPLICATIONS (5) Nicotine dependence Current Visit: Yes Status: Acute Code(s): F17.200 - NICOTINE DEPENDENCE, UNSPECIFIED, UNCOMPLICATED
[2019-02-10] MEDS: ELIQUIS 2.5 MG TABLET PO SCH ×2 (11:47→22:09)
[2019-02-10] MEDS: Protonix 40MG Tablet PO SCH (11:48)
[2019-02-10] MEDS: Norco 10/325 MG Tablet PO PRN (17:04)
[2019-02-10] MEDS: xanAX 0.5 MG PO PRN (22:09)
[2019-02-10] MEDS: Ambien 5 MG Tablet PO PRN (22:09)
[2019-02-11] MEDS: DUONEB 0.5-3 MG/3 ml Neb IH SCH ×6 (03:19→22:13)
[2019-02-11 05:01] LABS: Hematocrit 31.5 % (42-50); Hemoglobin 9.9 gm/dl (12.5-18.0); Mean Cell Volume 95.7 fl (78-100); Mean Corpuscular Hgb Concent. 31.4 g/dl (32-36); Mean Platelet Volume 7.9 fl (6-9.5); Platelet Count 190 K/mm3 (150-450); Red Blood Count 3.29 M/mm3 (4.1-5.6); Red Cell Distribution Width 13.3 % (11.5-14.0); White Blood Count 18.9 K/mm3 (4.0-10.5)
[2019-02-11 05:13] LABS: ANION GAP 7.5 MEQ/L (5-15); BLOOD UREA NITROGEN 28 mg/dL (9-20); CHLORIDE 96 mmol/L (98-107); Calcium 8.5 mg/dL (8.4-10.2); Carbon Dioxide 37 mmol/L (22-30); Creatinine 1 0.54 mg/dL (0.66-1.25); Glucose 220 mg/dL (74-106); Potassium 4.8 mmol/L (3.5-5.1); SODIUM 136 mmol/L (137-145)
[2019-02-11 05:42] LABS: Lymphocytes 3 % (24-44); Monocyte 1 % (0.0-12.0); Neutrophils 96 % (36.-66.); Total Cells Counted 100
[2019-02-11 05:43] LABS: Platelet Estimate NORMAL (NORMAL)
[2019-02-11] MEDS: solu-MEDROL 40 MG IV SCH ×3 (06:04→22:49)
[2019-02-11] MEDS: PATIENT OWN MEDICATION PO SCH (06:52)
[2019-02-11] MEDS: Glucophage 500 MG PO SCH ×2 (08:26→17:10)
[2019-02-11] MEDS: Lantus Insulin SQ SCH (08:28)
[2019-02-11] MEDS: ELIQUIS 2.5 MG TABLET PO SCH ×2 (10:31→22:49)
[2019-02-11] MEDS: Zestril 5 MG PO SCH (10:31)
[2019-02-11] MEDS: Protonix 40MG Tablet PO SCH (10:31)
[2019-02-11] MEDS: Tums EX 750 MG PO PRN ×2 (10:32→14:49)
[2019-02-11] MEDS: NovoLOG Insulin SQ PRN (12:25)
[2019-02-11] MEDS: xanAX 0.5 MG PO PRN ×2 (17:47→22:49)
--- NOTE | 2019-02-11 22:45 | PCM.NOTE ---
Date and Time: 02/11/192231 Subjective Assessment: Patient states he is unable to get up even to the bathroom without feeling tired and out of breath. He wishes he could go home but realizes he will have to go to the senior care, No new complaints.Appetite is good.BM today. Objective Exam General Appearance: mild distress Neurologic Exam: alert, oriented x 3 Skin Exam: normal color, warm, dry Respiratory Exam: diminished breath sounds Cardiovascular Exam: regular rate/rhythm Extremity Exam: No other (no edema) OBJECTIVE DATA Vital Signs: Vital Signs - 24 hr Temp Pulse Resp BP Pulse Ox 02/11/19 22:17 84 20 98 02/11/19 20:00 98.7 F 91 H 22 125/65 92 L 02/11/19 18:04 101 H 24 94 L 02/11/19 16:00 98.4 F 88 18 139/77 96 02/11/19 14:46 99 H 85 H 5 L 02/11/19 11:52 98.3 F 82 19 110/61 92 L 02/11/19 10:28 78 98 02/11/19 07:56 97.8 F 80 18 125/80 97 02/11/19 06:54 80 18 97 02/11/19 04:00 98.2 F 91 H 22 129/87 97 02/11/19 03:22 84 20 98 02/10/19 23:50 80 20 97 02/10/19 23:40 97.7 F 78 20 137/64 97 Oxygen-Last 24 hours O2 Percentage 5 Liters = 40% O2 Percentage 5 Liters = 40% O2 Percentage 5 Liters = 40% O2 Percentage 5 Liters = 40% O2 Percentage 5 Liters = 40% O2 Percentage 5 Liters = 40% Pain Assessment - Last Documented Pain Intensity 5 Pain Scale Used 0-10 Pain Scale Intake and Output: Intake & Output 02/09/19 02/10/19 02/11/19 02/12/19 11:59 11:59 11:59 11:59 Intake Total 1020 2200 1640 360 Output Total 1564 2150 2400 300 Balance -544 50 -760 60 Lab Results: Accuchecks Date 02/11/19 Date 02/11/19 Date 02/11/19 Time 17:11 Time 11:35 Time 08:20 Accucheck Value: 123 Accucheck Value: 406 Accucheck Value: 220 Lab Results-Last 24 Hours 02/11/19 02/11/19 Range/Units 05:00 05:00 WBC 18.9 H (4.0-10.5) K/mm3 RBC 3.29 L (4.1-5.6) M/mm3 Hgb 9.9 L (12.5-18.0) gm/dl Hct 31.5 L (42-50) % MCV 95.7 (78-100) fl MCH 30.0 (26-32) pg MCHC 31.4 L (32-36) g/dl RDW 13.3 (11.5-14.0) % Plt Count 190 (150-450) K/mm3 MPV 7.9 (6-9.5) fl Segmented Neutrophils 96 H (36.-66.) % Lymphocytes (Manual) 3 L (24-44) % Monocytes (Manual) 1 (0.0-12.0) % Platelet Estimate NORMAL (NORMAL) RBC Morphology NORMAL Sodium 136 L (137-145) mmol/L Potassium 4.8 (3.5-5.1) mmol/L Chloride 96 L (98-107) mmol/L Carbon Dioxide 37 H (22-30) mmol/L Anion Gap 7.5 (5-15) MEQ/L BUN 28 H (9-20) mg/dL Creatinine 0.54 L (0.66-1.25) mg/dL Estimated GFR > 60.0 ML/MIN Glucose 220 H (74-106) mg/dL Calcium 8.5 (8.4-10.2) mg/dL Assessment/Plan (1) COPD exacerbation Current Visit: Yes Status: Acute Code(s): J44.1 - CHRONIC OBSTRUCTIVE PULMONARY DISEASE W (ACUTE) EXACERBATION (2) IV infiltration Current Visit: Yes Status: Resolved Qualifiers: Encounter type: initial encounter Qualified Code(s): T80.1XXA - Vascular complications following infusion, transfusion and therapeutic injection, initial encounter Code(s): T80.1XXA - VASCULAR COMP FOL INFUSN, TRANFS AND THERAPUTC INJECT, INIT (3) Weakness Current Visit: Yes Status: Chronic Code(s): R53.1 - WEAKNESS
[2019-02-11] MEDS: Ambien 5 MG Tablet PO PRN (22:49)
[2019-02-12] MEDS: DUONEB 0.5-3 MG/3 ml Neb IH SCH ×3 (03:10→11:51)
[2019-02-12] MEDS: solu-MEDROL 40 MG IV SCH (05:04)
[2019-02-12] MEDS: PATIENT OWN MEDICATION PO SCH (07:52)
[2019-02-12] MEDS: NovoLOG Insulin SQ PRN ×2 (08:23→12:24)
[2019-02-12] MEDS: Lantus Insulin SQ SCH (08:30)
[2019-02-12] MEDS: Glucophage 500 MG PO SCH (08:30)
--- NOTE | 2019-02-12 09:00 | PCM.DS ---
Discharge Summary Date of Admission: 01/28/19 22:22 Admitting Physician: IBETH JAEGER Consults: Consults on Case 01/31/19 09:02 Consult Surgery ROUTINE Primary Care Provider: IBETH JAEGER Allergies Allergies No Known Drug Allergies Allergy (Verified 01/25/19 10:27) Hospital Summary - Hospital Course Hospital Course: Mr.SMITH CAZARES is a 68 year old male pt of Dr. 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 He has been treated with 14d of antibiotics and is still on IV steroids (solumedrol 40IV q8h). CXR at admission was grossly stable. He did have a PICC line inserted during his stay. Had anemia around 10, stable during his stay. He has been using his ecigarette during his stay here, sometimes during nebulizer tx (per RT). We did have a long discussion today about stopping the ecig, it is not helping his recovery. Also some people in the hospital are sensitive to the smoke/smell. He agrees to nicotine patch. He continues to have generalized weakness. He has agreed to an admission at [place]; will be discharged today. - Vitals & Intake/Output Vital Signs: Vital Signs Temperature 98.2 F 02/12/19 07:32 Pulse Rate 82 02/12/19 07:53 Respiratory Rate 22 02/12/19 07:53 Blood Pressure 134/72 02/12/19 07:32 O2 Sat by Pulse Oximetry 98 02/12/19 07:53 Oxygen-Last Documented O2 Percentage 5 Liters = 40% Intake & Output: Intake & Output 02/09/19 02/10/19 02/11/19 02/12/19 11:59 11:59 11:59 11:59 Intake Total 1020 2200 1640 1080 Output Total 1564 2150 2400 1325 Balance -544 50 -760 -245 - Lab Result Diagrams: 02/11/19 05:00 02/11/19 05:00 Lab Results-Last 24 Hrs: Accuchecks Date 02/11/19 Date 02/11/19 Time 17:11 Time 11:35 Accucheck Value: 182 Accucheck Value: 234 Accucheck Value: 123 Accucheck Value: 406 Micro Results-Entire Visit: Accuchecks Date 02/11/19 Date 02/11/19 Time 17:11 Time 11:35 Accucheck Value: 182 Accucheck Value: 234 Accucheck Value: 123 Accucheck Value: 406 - Procedures and Test Procedures and Tests throughout Hospitalization: Therapy Orders & Screens 01/28/19 22:23 EKG REPEAT IN AM Comment: Oxygen Nasal Cannula 5 lpm Comment: Respiratory Therapy Consult Comment: Reason For Exam: 01/28/19 23:14 Peak Expiratory Flow Rate ONCE Comment: Reason For Exam: Respiratory Therapy Assessment DAILY Comment: 01/28/19 23:53 RT Screen per Nursing Assess Comment: Protocol Order Physician Instructions: Greater than 3 points order RT Admission Screen Reason For Exam: Triggered on Admission Diagnosis: Exacerbation of COPD Diagnosis: Exacerbation of COPD Pneumonia: No Home O2: Yes Asthma: No CHF: No Home CPAP/BIPAP: No Home Nebs/MDI: Yes Total Points: 10 01/31/19 07:00 Respiratory MDI UD Comment: TRELEGY DAILY-HOME MED Diagnosis: Exacerbation of COPD 02/04/19 08:41 PT Eval & Treat (MD Order) Reason for Eval:: weakness Diagnosis: Exacerbation of COPD Discharge Exam General Appearance: no apparent distress, alert, cachetic Neurologic Exam: oriented x 3, cooperative Eye Exam: eyes nml inspection Ears, Nose, Throat Exam: moist mucous membranes Respiratory Exam: diminished breath sounds, rhonchi (scattered), wheezing ( scattered), No crackles/rales Cardiovascular Exam: regular rate/rhythm, normal heart sounds, No murmur Gastrointestinal/Abdomen Exam: soft, normal bowel sounds, distention (as usual) , No tenderness, No mass, No guarding, No rebound Extremity Exam: normal inspection, No pedal edema, No swelling Skin Exam: normal color, warm, dry, No rash Final Diagnosis/Problem List - Final Discharge Diagnosis/Problem (1) COPD exacerbation Current Visit: Yes Status: Acute Assessment & Plan: He will be discharged to [place] today. Will start the oral steroids today. Code(s): J44.1 - CHRONIC OBSTRUCTIVE PULMONARY DISEASE W (ACUTE) EXACERBATION (2) Failure of outpatient treatment Current Visit: Yes Status: Acute Code(s): Z78.9 - OTHER SPECIFIED HEALTH STATUS (3) Muscular deconditioning Current Visit: No Status: Acute Assessment & Plan: to [facility] today. 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 advised the ecig is not helping his lung disease, people have had bad reactions in some cases leading to , and he needs to stop it. Code(s): F17.200 - NICOTINE DEPENDENCE, UNSPECIFIED, UNCOMPLICATED - Discharge Disposition: Skilled Care @ [facility] Condition: Stable Prescriptions: New Zolpidem Tartrate 5 mg [Ambien 5 MG Tablet] 5 mg PO HS PRN PRN #5 tab PRN Reason: Insomnia Prednisone [Deltasone] 60 mg PO DAILY #25 tablet Insulin Glargine [Lantus Insulin] 10 unit SQ AMINSULIN #1 unit Nicotine 14 mg [Nicoderm Cq 14 mg] 14 mg TOP Q24H #14 patch Hydrocodone/APAP 10/325 mg [Leslie 10/325 MG Tablet] 1 tab PO Q4H PRN PRN #10 tablet MDD 6 PRN Reason: Pain Insulin Aspart [NovoLOG Insulin] 5 units SQ UD PRN #5 unit PRN Reason: Hyperglycemia Lisinopril 5 mg [Zestril 5 MG] 5 mg PO DAILY #30 tablet Continue Apixaban [Eliquis 5 mg Tablet] 5 mg PO BID Ipratropium/Albuterol Sulfate [Iprat-Albut 0.5-3(2.5) mg/3 ml] 3 ml IH Q4HPRN PRN PRN Reason: Shortness Of Breath Fluticasone/Umeclidin/Vilanter [Trelegy Ellipta 100-62.5-25] 1 puff IH DAILY Metformin HCl 500 mg [Glucophage 500 MG] 500 mg PO BID #60 tablet PANTOPRAZOLE 40 mg Tablet [Protonix 40MG Tablet] 40 mg PO DAILY Prednisone 10 mg [Deltasone 10 mg] 10 mg PO DAILY Alprazolam 0.5 mg PO TID PRN PRN #21 tablet PRN Reason: Anxiety Hydrocodone/APAP 10/325 mg [Leslie 10/325 MG Tablet] 1 tab PO Q4H PRN PRN #150 tablet MDD 6 PRN Reason: Pain Discontinued Doxycycline Hyclate 100 mg PO BID #14 capsule Follow up with: IBETH JAEGER MD [Primary Care Provider] - 02/13/19 11:15 am
[2019-02-12] MEDS ORDERED: NICODERM CQ 14 MG TOP SCH (10:00)
[2019-02-12] MEDS: Zestril 5 MG PO SCH (10:30)
[2019-02-12] MEDS: Protonix 40MG Tablet PO SCH (10:30)
[2019-02-12] MEDS: ELIQUIS 2.5 MG TABLET PO SCH (10:30)
[2019-02-12 12:16] VITALS: BP 127/72; PULSE 99; O2SAT 96
[2019-02-12] MEDS: xanAX 0.5 MG PO PRN (12:25)
== END 2019-02-12 13:00 | DRG 191 ==
LOC: ED 19:44 → OBSVTOIN 22:22 → MED SURG 22:22
PROVIDERS: ADMIT Family Medicine; ATTEND Family Medicine
DX: J44.1 Chronic obstructive pulmonary disease with (acute) exacerbation (principal); J96.11 Chronic respiratory failure with hypoxia; J60 Coalworker's pneumoconiosis; E11.9 Type 2 diabetes mellitus without complications; Z86.711 Personal history of pulmonary embolism; D64.9 Anemia, unspecified; R53.1 Weakness; R29.898 Other symptoms and signs involving the musculoskeletal system; I50.9 Heart failure, unspecified; F17.200 Nicotine dependence, unspecified, uncomplicated; I10 Essential (primary) hypertension; Z79.01 Long term (current) use of anticoagulants; Z79.899 Other long term (current) drug therapy; F41.9 Anxiety disorder, unspecified; L89.151 Pressure ulcer of sacral region, stage 1; G47.00 Insomnia, unspecified
CPT/HCPCS: 36000; 36415; 36569; 36600; 71045; 80048; 80053; 81001; 82375; 82803; 82962; 83036; 83735; 83880; 84134; 84484; 85025; 85027; 85610; 85730; 93005; 93041; 94150; 94640; 94760; 99285; J0456; J0696; J2405; J2920; J2930; A9270-GY

== ENCOUNTER 2019-06-10 02:24 | Emergency (ER) | payer MEDICARE ==
[2019-06-10] MEDS ORDERED: EPINEPHRINE ABBOJECT 1 MG IV ONE (02:26)
[2019-06-10 02:45] VITALS: PULSE 27
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
[2019-06-10 08:49] VITALS: O2SAT 0
== END 2019-06-10 02:34 | disposition expired ==
LOC: ED 02:32
DX: J44.9 Chronic obstructive pulmonary disease, unspecified (principal); E11.9 Type 2 diabetes mellitus without complications; Z79.01 Long term (current) use of anticoagulants; Z79.899 Other long term (current) drug therapy; J60 Coalworker's pneumoconiosis; Z86.711 Personal history of pulmonary embolism
CPT/HCPCS: 94799; 99283; J0171